=== PATIENT | male | born 1930 | race Caucasian/White ===

== ENCOUNTER 2019-01-17 04:40 | Inpatient (IN) | payer OTHER ==
[2019-01-17 05:23] LABS: Absolute Lymphocytes (CBC) 1.5 K/uL (0.7-4.9); Absolute Monocytes 0.7 K/uL (0.1-1.3); Basophils % 0.8 % (0-1.3); Eosinophils % 3.4 % (0-4.4); Hematocrit 38.7 % (39.6-49.0); Lymphocytes % 12.9 % (15.3-44.8); MPV 11.9 fL (7.6-11.3); Monocytes % 5.9 % (3.3-12.3); RBC Red Blood Cell Count 4.14 M/uL (4.33-5.43)
[2019-01-17 05:26] LABS: Protime INR 0.99
[2019-01-17 05:47] LABS: Albumin 3.8 g/dL (3.4-5.0); Bilirubin Direct 0.2 mg/dL (0-0.2); Bilirubin Total 0.5 mg/dL (0.2-1.0); Magnesium 1.9 mg/dL (1.8-2.4); Potassium 5.2 mmol/L (3.5-5.1); Protein, Total 7.8 g/dL (6.4-8.2); Troponin (Emerg Dept Use Only) 0.48 ng/mL (0.0-0.045)
--- NOTE | 2019-01-17 05:48 | ER ---
Nurse's Notes [facility] Name: Abner Perea Age: 88 yrs Sex: Male : 1930 Arrival Date: 01/17/2019 Time: 04:42 Bed 5 Private MD: Diagnosis: Other chest pain;Acute Coronary syndrome;Hyperglycemia Presentation: 01/17 04:44 Presenting complaint: EMS states: Chest pain with nausea that began at 0000, woke him lp1 out of sleep but waited to see if it would get better; Called EMS after no improvement, on arrival of EMS, chest pain resolved; Per EMS, Patient O2 sat of 90% on RA. Transition of care: patient was not received from another setting of care. Onset of symptoms was January 17, 2019 at 00:00. Risk Assessment: Do you want to hurt yourself or someone else? Patient reports no desire to harm self or others. Initial Sepsis Screen: Does the patient meet any 2 criteria? No. Patient's initial sepsis screen is negative. Does the patient have a suspected source of infection? No. Patient's initial sepsis screen is negative. Care prior to arrival: IV initiated. 22 GA, in the left hand, Oxygen administered. via nasal cannula. 04:44 Method Of Arrival: EMS: [facility] lp1 04:44 Acuity: GEORGE 3 lp1 Historical: - Allergies: 04:51 No Known Allergies; lp1 - Home Meds: 04:51 Levemir 100 unit/mL subcutaneous soln [Active]; Novolog 100 unit/mL Sub-Q soln three lp1 times a day [Active]; bumetanide 2 mg Oral tab 1.5 tab 2 times per day [Active]; Isosorbide 30mg Daily [Active]; levothyroxine 88 mcg tab 1 tab once daily [Active]; levothyroxine 200 mcg tab 1 tab once daily [Active]; aspirin 81 mg Oral TbEC 1 tab once daily [Active]; metoprolol tartrate 50 mg Oral tab once daily [Active]; simvastatin 80 mg Oral tab daily [Active]; tamsulosin 0.4 mg oral cp24 1 cap once daily [Active]; - PMHx: 04:51 Hypertension; Diabetes - IDDM; Hypothyroidism; Myocardial infarction; lp1 - PSHx: 04:51 None; lp1 - Immunization history:: Adult Immunizations up to date. - Social history:: Smoking status: Patient/guardian denies using tobacco. - Ebola Screening: : No symptoms or risks identified at this time. Screenin:52 Abuse screen: Denies threats or abuse. Denies injuries from another. Nutritional lp1 screening: No deficits noted. Tuberculosis screening: No symptoms or risk factors identified. 05:06 Fall Risk No fall in past 12 months (0 pts). No secondary diagnosis (0 pts). IV access ed1 (20 points). Ambulatory Aid- None/Bed Rest/Nurse Assist (0 pts). Gait- Weak (10 pts.). Mental Status- Oriented to own ability (0 pts). Total Stone Fall Scale indicates Low Risk Score (25-44 pts). Fall prevention measures have been instituted. Side Rails Up X 2 Frequent Obs/Assesments occuring Family Present and informed to notify staff if they need to leave bedside As available Patient and Family Educated on Fall Prevention Program and strategies. Assessment: 05:06 General: Appears in no apparent distress. Behavior is calm, cooperative. Pain: Denies ed1 pain. N/A Pain began N/A. Neuro: Level of Consciousness is awake, alert, obeys commands, Oriented to person, place, time, situation. 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 Respiratory: Airway is patent Respiratory effort is even, unlabored, Respiratory pattern is regular, symmetrical, Breath sounds are clear bilaterally. GI: Abdomen is non-distended, Bowel sounds present X 4 quads. : No signs and/or symptoms were reported regarding the genitourinary system. EENT: No signs and/or symptoms were reported regarding the EENT system. Derm: Skin is intact, is fragile, is thin, Skin is dry, Skin is normal, Skin temperature is warm. 05:43 Reassessment: Patient appears in no apparent distress at this time. No changes from ed1 previously documented assessment. Patient and/or family updated on plan of care and expected duration. Pain level reassessed. Patient is alert, oriented x 3, equal unlabored respirations, skin warm/dry/pink. Patient denies pain at this time. 06:47 Reassessment: Patient appears in no apparent distress at this time. Patient and/or ed1 family updated on plan of care and expected duration. Pain level reassessed. Patient is alert, oriented x 3, equal unlabored respirations, skin warm/dry/pink. Patient denies pain at this time. 07:15 General: Appears in no apparent distress. comfortable, Behavior is calm, cooperative, hj appropriate for age. Pain: Denies pain. Neuro: Level of Consciousness is awake, alert, obeys commands, Oriented to person, place, time, situation, Appropriate for age. Cardiovascular: Reports chest pain. Respiratory: Airway is patent Respiratory effort is even, unlabored, Respiratory pattern is regular, symmetrical, Breath sounds are clear. GI: Abdomen is non-distended, Bowel sounds present X 4 quads. : No signs and/or symptoms were reported regarding the genitourinary system. EENT: No signs and/or symptoms were reported regarding the EENT system. Derm: No signs and/or symptoms reported regarding the dermatologic system. Musculoskeletal: No signs and/or symptoms reported regarding the musculoskeletal system. Vital Signs: 04:46 BP 179 / 86; Pulse 95; Resp 19; Temp 97.9(O); Pulse Ox 91% on R/A; Weight 108.86 kg; lp1 Height 6 ft. 0 in. (182.88 cm); Pain 0/10; 04:46 Pulse Ox 94% on 2 lpm NC; lp1 05:43 BP 170 / 70; Pulse 89; Resp 16; Pulse Ox 94% on 2 lpm NC; Pain 0/10; ed1 06:47 BP 158 / 73; Pulse 98; Resp 18; Pulse Ox 98% on 2 lpm NC; Pain 0/10; ed1 07:16 BP 163 / 75; Pulse 98; Resp 18; Temp 98.1(O); Pulse Ox 96% on R/A; hj 04:46 Body Mass Index 32.55 (108.86 kg, 182.88 cm) lp1 ED Course: 04:42 Patient arrived in ED. aa1 04:43 Ryan Lucas MD is Attending Physician. kdr 04:46 Triage completed. lp1 04:46 Arm band placed on right wrist. lp1 04:52 Patient has correct armband on for positive identification. Placed in gown. Bed in low lp1 position. Call light in reach. avionics systems integration specialist on. Pulse ox on. NIBP on. 04:52 Oxygen administration via nasal cannula \T\ 2L/min. lp1 04:57 XRAY Chest (1 view) In Process Unspecified. EDMS 05:06 Brittny Sow, RN is Primary Nurse. ed1 05:06 Maintain EMS IV. Dressing intact. Site clean \T\ dry. Gauge \T\ site: 22g left hand. ed 1 05:43 Notified ED physician of a critical lab result(s). Glucose 605. ed1 05:45 Nica Puga MD is Hospitalizing Provider. kdr 06:46 No provider procedures requiring assistance completed. Patient admitted, IV remains in ed1 place. intact, No redness/swelling at site. 07:00 Primary Nurse role handed off by Brittny Sow, IFTIKHAR ed1 07:00 Repeat lab(s) drawn. by or, sent to lab. lp1 07:01 Alex Carr, IFTIKHAR is Primary Nurse. 07:02 Glucose Sent. Administered Medications: 05:49 Drug: Insulin Regular Human 6 units {Co-Signature: aa1 (Samina Sepulveda RN).} Route: IVP; ed1 Site: left hand; 06:54 Follow up: Response: Blood sugar is unchanged ed1 06:56 Drug: Insulin Regular Human 10 units {Co-Signature: lp1 (Ange Small RN).} Route: IVP; Site: left hand; 07:19 Follow up: Response: No adverse reaction Point of Care Testing: Blood Glucose: 05:09 Blood Glucose: High (>450 mg/dL); lp1 06:53 Blood Glucose: High (>450 mg/dL); ed1 05:09 Glucometer read >500; lab Glucose ordered lp1 06:53 Glucometer read >500; lab glucose ordered ed1 Ranges: Outcome: 05:46 Decision to Hospitalize by Provider. kdr 07:54 Admitted to Med/surg accompanied by tech, via wheelchair, room 221, with oxygen, with chart, Report called to IFTIKHAR Kumar 07:54 Condition: stable 07:54 Instructed on the need for admit, Demonstrated understanding of instructions. 07:56 Patient left the ED. hj Signatures: Dispatcher [employer] EDKY Samina Sepulveda RN RN aa1 Ryan Lucas MD MD [facility] Brittny Sow RN RN ed1 Ange Small RN RN [facility] Alex Carr RN RN Samina Sepulveda RN aa1 Ange Small RN lp1 Corrections: (The following items were deleted from the chart) 04:52 04:44 Care prior to arrival: None. lp1 lp1
--- NOTE | 2019-01-17 05:49 | EDPHYS ---
Physician Documentation [facility] Name: Abner Perea Age: 88 yrs Sex: Male : 1930 Arrival Date: 01/17/2019 Time: 04:42 Bed 5 Private MD: ED Physician Ryan Lucas HPI: 01/17 05:38 This 88 yrs old Male presents to ER via EMS with complaints of Chest Pain > kdr 31 y/o. 05:38 The patient or guardian reports chest pain that is located primarily in the substernal kdr area, anterior chest wall, bilaterally. Onset: suddenly, Awoke from sleep at midnight with chest discomfort 5/10. Some nausea but no SOB or diaphoresis. Pain persisted until EMS arrived and brought him here. He has no other c/o at this time and is totally pain free.. The pain does not radiate. Associated signs and symptoms: Pertinent positives: nausea, Pertinent negatives: abdominal pain, cough, diaphoresis, dizziness, headache, lower extremity pain, lower extremity swelling, lightheadedness, near syncope, palpitations, recent travel, shortness of breath, syncope, vomiting. The chest pain is described as aching, dull. Duration: The patient or guardian reports a single episode, that is now resolved. Modifying factors: The symptoms are alleviated by nothing. the symptoms are aggravated by nothing. Severity of pain: At its worst the pain was mild a 5 / 10. The patient has experienced similar episodes in the past, a few times. The patient has been recently seen by a physician: Had a recent stay in ICU with an OH out of town. Was in the hospital for over a week. That has hanna in the last month.. Historical: - Allergies: 04:51 No Known Allergies; lp1 - Home Meds: 04:51 Levemir 100 unit/mL subcutaneous soln [Active]; Novolog 100 unit/mL Sub-Q soln three lp1 times a day [Active]; bumetanide 2 mg Oral tab 1.5 tab 2 times per day [Active]; Isosorbide 30mg Daily [Active]; levothyroxine 88 mcg tab 1 tab once daily [Active]; levothyroxine 200 mcg tab 1 tab once daily [Active]; aspirin 81 mg Oral TbEC 1 tab once daily [Active]; metoprolol tartrate 50 mg Oral tab once daily [Active]; simvastatin 80 mg Oral tab daily [Active]; tamsulosin 0.4 mg oral cp24 1 cap once daily [Active]; - PMHx: 04:51 Hypertension; Diabetes - IDDM; Hypothyroidism; Myocardial infarction; lp1 - PSHx: 04:51 None; lp1 - Immunization history:: Adult Immunizations up to date. - Social history:: Smoking status: Patient/guardian denies using tobacco. - Ebola Screening: : No symptoms or risks identified at this time. ROS: 05:38 Constitutional: Negative for fever, chills, and weight loss, Eyes: Negative for injury, kdr pain, redness, and discharge, ENT: Negative for injury, pain, and discharge, Neck: Negative for injury, pain, and swelling, Respiratory: Negative for shortness of breath, cough, wheezing, and pleuritic chest pain, Abdomen/GI: Negative for abdominal pain, nausea, vomiting, diarrhea, and constipation, Back: Negative for injury and pain, : Negative for injury, bleeding, discharge, and swelling, MS/Extremity: Negative for injury and deformity, Skin: Negative for injury, rash, and discoloration, Neuro: Negative for headache, weakness, numbness, tingling, and seizure activity. 05:38 Cardiovascular: Positive for chest pain, Negative for edema, orthopnea, palpitations, paroxysmal nocturnal dyspnea, acute changes. Exam: 05:38 Constitutional: This is a well developed, well nourished patient who is awake, alert, kdr and in no acute distress. Head/Face: Normocephalic, atraumatic. Eyes: Pupils equal round and reactive to light, extra-ocular motions intact. Lids and lashes normal. Conjunctiva and sclera are non-icteric and not injected. Cornea within normal limits. Periorbital areas with no swelling, redness, or edema. Neck: Trachea midline, no thyromegaly or masses palpated, and no cervical lymphadenopathy. Supple, full range of motion without nuchal rigidity, or vertebral point tenderness. No Meningismus. Chest/axilla: Normal chest wall appearance and motion. Nontender with no deformity. No lesions are appreciated. Cardiovascular: Regular rate and rhythm with a normal S1 and S2. No gallops, murmurs, or rubs. Normal PMI, no JVD. No pulse deficits. Respiratory: Lungs have equal breath sounds bilaterally, clear to auscultation and percussion. No rales, rhonchi or wheezes noted. No increased work of breathing, no retractions or nasal flaring. Abdomen/GI: Soft, non-tender, with normal bowel sounds. No distension or tympany. No guarding or rebound. No evidence of tenderness throughout. Back: No spinal tenderness. No costovertebral tenderness. Full range of motion. Skin: Warm, dry with normal turgor. Normal color with no rashes, no lesions, and no evidence of cellulitis. MS/ Extremity: Pulses equal, no cyanosis. Neurovascular intact. Full, normal range of motion. Neuro: Awake and alert, GCS 15, oriented to person, place, time, and situation. Cranial nerves II-XII grossly intact. Motor strength 5/5 in all extremities. Sensory grossly intact. Cerebellar exam normal. Normal gait. Psych: Awake, alert, with orientation to person, place and time. Behavior, mood, and affect are within normal limits. Vital Signs: 04:46 BP 179 / 86; Pulse 95; Resp 19; Temp 97.9(O); Pulse Ox 91% on R/A; Weight 108.86 kg; lp1 Height 6 ft. 0 in. (182.88 cm); Pain 0/10; 04:46 Pulse Ox 94% on 2 lpm NC; lp1 05:43 BP 170 / 70; Pulse 89; Resp 16; Pulse Ox 94% on 2 lpm NC; Pain 0/10; ed1 06:47 BP 158 / 73; Pulse 98; Resp 18; Pulse Ox 98% on 2 lpm NC; Pain 0/10; ed1 07:16 BP 163 / 75; Pulse 98; Resp 18; Temp 98.1(O); Pulse Ox 96% on R/A; hj 04:46 Body Mass Index 32.55 (108.86 kg, 182.88 cm) lp1 MDM: 05:38 Data reviewed: vital signs, nurses notes, lab test result(s), EKG, radiologic studies. kdr Counseling: I had a detailed discussion with the patient and/or guardian regarding: the historical points, exam findings, and any diagnostic results supporting the discharge/admit diagnosis, lab results, radiology results. 05:46 Patient medically screened. kdr 01/17 04:43 Order name: Basic Metabolic Panel; Complete Time: 06:14 kdr 01/17 04:43 Order name: CBC with Diff; Complete Time: 05:48 kdr 01/17 04:43 Order name: LFT's; Complete Time: 06:14 kdr 01/17 04:43 Order name: Magnesium; Complete Time: 06:14 kdr 01/17 04:43 Order name: NT PRO-BNP; Complete Time: 06:14 [facility] 01/17 04:43 Order name: PT-INR; Complete Time: 06:14 [facility] 01/17 04:43 Order name: Troponin (emerg Dept Use Only); Complete Time: 06:14 kdr 01/17 04:43 Order name: XRAY Chest (1 view) kdr 01/17 05:10 Order name: Glucose; Complete Time: 05:48 ed1 01/17 06:53 Order name: Glucose ed1 01/17 07:35 Order name: Glucose Level EDDE 01/17 04:43 Order name: EKG; Complete Time: 04:44 [facility] 01/17 04:43 Order name: Cardiac monitoring; Complete Time: 05:11 [facility] 01/17 04:43 Order name: EKG - Nurse/Tech; Complete Time: 05:11 kdr 01/17 04:43 Order name: IV Saline Lock; Complete Time: 05:11 [facility] 01/17 04:43 Order name: Labs collected and sent; Complete Time: 05:11 [facility] 01/17 04:43 Order name: O2 Per Protocol; Complete Time: 05:10 [facility] 01/17 04:43 Order name: O2 Sat Monitoring; Complete Time: 05:11 [facility] 01/17 06:23 Order name: CONS Physician Consult EDDE 01/17 06:23 Order name: EKG Electrocardiogram EDDE 01/17 06:23 Order name: EKG Electrocardiogram EDDE Administered Medications: 05:49 Drug: Insulin Regular Human 6 units {Co-Signature: aa1 (Samina Sepulveda RN).} Route: IVP; ed1 Site: left hand; 06:54 Follow up: Response: Blood sugar is unchanged ed1 06:56 Drug: Insulin Regular Human 10 units {Co-Signature: lp1 (Ange Small RN).} Route: IVP; Site: left hand; 07:19 Follow up: Response: No adverse reaction Point of Care Testing: Blood Glucose: 05:09 Blood Glucose: High (>450 mg/dL); lp1 06:53 Blood Glucose: High (>450 mg/dL); ed1 05:09 Glucometer read >500; lab Glucose ordered lp1 06:53 Glucometer read >500; lab glucose ordered ed1 Ranges: Critical Glucose Levels:Adult <50 mg/dl or >400 mg/dl <40 mg/dl or >180 mg/dl Disposition: 01/17/19 05:46 Hospitalization ordered by Nica Puga for Inpatient Admission. Preliminary diagnosis are Other chest pain, Acute Coronary syndrome, Hyperglycemia. - Bed requested for Telemetry/MedSurg (observation). - Status is Inpatient Admission. hj - Condition is Stable. - Problem is an acute exacerbation. - Symptoms are resolved. UTI on Admission? No Signatures: Dispatcher [employer] EDDE Batool Warner RN RN Ryan Lucas MD MD [facility] Brittny Sow RN RN ed1 Ange Small RN RN lp1 Alex Carr RN RN Samina Sepulveda RN aa1 Ange Small RN lp1 Corrections: (The following items were deleted from the chart) 06:26 06:23 Troponin I ordered. EDDE EDMS 06:26 06:23 Troponin I ordered. [facility] EDMS 06:32 05:46 Hospitalization Ordered by A Vivien GARCIA for Inpatient Admission. Preliminary mw diagnosis is Other chest pain; Acute Coronary syndrome; Hyperglycemia. Bed requested for Telemetry/MedSurg (observation). Status is Inpatient Admission. Condition is Stable. Problem is an acute exacerbation. Symptoms are resolved. UTI on Admission? No. kdr 07:56 06:32 01/17/2019 05:46 Hospitalization Ordered by A Vivien GRACIA for Inpatient Admission. hj Preliminary diagnosis is Other chest pain; Acute Coronary syndrome; Hyperglycemia. Bed requested for Telemetry/MedSurg (observation). Status is Inpatient Admission. Condition is Stable. Problem is an acute exacerbation. Symptoms are resolved. UTI on Admission? No. mw
[2019-01-17] MEDS ORDERED: INSULIN -REGULAR HUMAN 50 UNIT/0.5 ML ML ONE ×2 (05:58→07:13)
[2019-01-17] MEDS ORDERED: ACETAMINOPHEN 500 MG TAB PO PRN (06:19)
[2019-01-17] MEDS ORDERED: D50W 25 GM/50 ML SYRINGE IV PRN ×3 (06:50→15:37)
[2019-01-17] MEDS ORDERED: GLUCAGON 1 MG/VIAL IM PRN ×3 (06:50→15:37)
[2019-01-17] MEDS ORDERED: INSULIN -REGULAR HUMAN 50 UNIT/0.5 ML ML SQ SCH (07:30)
--- NOTE | 2019-01-17 07:40 | EKG ---
Test Date: 2019-01-17 Test Time: 04:43:09 Customer Sales Advisor: ISIDRO MEASUREMENT RESULTS: Intervals: Rate: 92 RI: 278 QRSD: 106 QT: 352 QTc: 435 Tofte: P: 45 RI: 278 QRS: 53 T: -55 INTERPRETIVE STATEMENTS: Sinus rhythm with 1st degree AV block Possible Anterior infarct, age undetermined Abnormal ECG Compared to ECG 03/10/2017 16:57:59 Myocardial infarct finding now present Ventricular premature complex(es) no longer present Electronically Signed On 01-17-19 07:38:53 [employer] by Christophe Mcfadden
[2019-01-17] MEDS ORDERED: ASPIRIN EC 81 MG TAB PO SCH (09:00)
[2019-01-17 09:12] VITALS: BMI 33.5
--- NOTE | 2019-01-17 09:47 | RAD REPORT ---
EXAM DESCRIPTION: Travis Single View01/17/2019 4:58 am CLINICAL HISTORY: Chest pain COMPARISON: 2017 FINDINGS: Mild bilateral interstitial lung opacities are present. Lungs are hyperaerated. Heart is normal size IMPRESSION: Mild bilateral interstitial lung opacities may represent mild interstitial pulmonary klarissa ma or pneumonitis superimposed over chronic changes
[2019-01-17] MEDS: INSULIN -REGULAR HUMAN 50 UNIT/0.5 ML ML SQ SCH ×4 (10:31→21:29)
[2019-01-17 12:46] LABS: Troponin I 4.99 ng/mL (0.0-0.045)
--- NOTE | 2019-01-17 13:50 | CON ---
Date of Consultation: 01/17/2019 Reason For Consultation: Chest pain. History Of Present Illness: Mr. Perea is an 88-year-old white male. He is very well known to me from previous office visits and admissions. He basically was visiting with some friends last night and a te a lot according to him and went to sleep about midnight, woke up early this morning with midepigas tric substernal chest pain with some nausea. No diaphoresis or shortness of breath. Denied any radi ation of the pain to his jaw or arms. Denied any shortness of breath, PND, orthopnea, pedal edema, p alpitation, or syncope. His symptoms lasted approximately 2 hours. By the time I saw him, he was pa in free. Past Medical History: Include hypertension, diabetes, coronary artery disease status post recent DC in [facility] with a catheterization that was done, but no intervention. He has a history of modera te cerebrovascular disease, dyslipidemia, chronic renal disease, benign prostatic hypertrophy. He al so has a history of hypertension. Allergies: NONE. Review of Systems: Negative. Social History: Negative for tobacco or alcohol. Family History: Negative. Medications: At home include aspirin, insulin, levothyroxine, Procardia, ramipril, Zocor, Flomax, bu metanide, Imdur, metoprolol 50 daily, and valsartan-hydrochlorothiazide combination. Physical Examination: Vital Signs: Stable. He was afebrile. He was pleasant. He was in sinus rhythm. His blood pressur e was slightly elevated at 179/86 when he came in and was 150/80 when I saw him. HEENT: Negative. Neck: Supple without any bruit, lymphadenopathy, JVD, or thyromegaly. Chest: Clear to auscultation and percussion. Cardiac: Regular rhythm and rate with an S4, gallops. No murmurs or rubs. Abdomen: Benign. Extremities: No clubbing, cyanosis, or edema. Skin: Dry and intact. Vascular: Decreased dorsalis pedis and posterior tibial bilaterally. Neurological: He was nonfocal. Diagnostic Data: Creatinine was 3.26. White count was 11.7000. Glucose was 605. Troponin is 0.48. BNP is 2469. Impression And Plan: 1.Non-ST elevation myocardial infarction. 2.Diabetes with very poor control with a glucose of 605. 3.Elevated BNP secondary to renal failure. 4.Chronic renal insufficiency stage IV. 5.History of coronary artery disease, had a catheterization in [facility] recently. I am assuming it found distal disease similar to what we found in March 2017. No intervention. 6.His other problems include hypertension that is poorly controlled, cerebrovascular disease that is moderate, and benign prostatic hypertrophy. At this point, I would certainly control his sugar firs t, increase his beta-clotilde to 50 b.i.d., consider adding Norvasc for his blood pressure. I am slig htly confused on what medication he takes at home. He did not have his medications with him, but if he is on valsartan, hydrochlorothiazide, or ramipril, all these need to be held. I would like to get another echocardiogram for the morning. Consider renal consultation. I do not plan to repeat heart catheterization at this point. I will discuss the case further with Dr. Puga. MARINA/AGUILA Voice ID: [id number] Report ID: [id number]
[2019-01-17] MEDS ORDERED: INSULIN -REGULAR HUMAN 50 UNIT/0.5 ML ML IV STA ×2 (14:07→17:36)
[2019-01-17] MEDS ORDERED: ASPIRIN EC 81 MG TAB PO ONE (14:44)
[2019-01-17] MEDS ORDERED: METOPROLOL XL 50 MG TAB PO ONE (14:44)
[2019-01-17] MEDS: ISOSORBIDE MONO SR 60 MG TAB PO SCH (15:45)
[2019-01-17] MEDS ORDERED: ENOXAPARIN 40 MG/0.4 ML SQ SCH (17:00)
[2019-01-17] MEDS ORDERED: ENOXAPARIN 30 MG/0.3 ML SQ SCH (17:00)
[2019-01-17] MEDS ORDERED: INSULIN GLARGINE 100 UNITS/ML SQ SCH (21:00)
[2019-01-17] MEDS: BUMETANIDE 1 MG TABLET PO SCH (21:24)
[2019-01-17] MEDS: ATORVASTATIN 40 MG TAB PO SCH (21:24)
[2019-01-17] MEDS: GABAPENTIN 100 MG CAP PO SCH (21:30)
[2019-01-17] MEDS: METOPROLOL XL 50 MG TAB PO SCH (21:31)
--- NOTE | 2019-01-17 22:08 | HP ---
Date of Admission: 01/17/2019 Chief Complaint: Chest pain. History Of Present Illness: This is an 88-year-old male patient who went to [place] with his about a month ago; and at that time, he forgot to take all his medications with him, and he ended up in the hospital and stayed there for several days. He was taken to the hospital with hypertensive crisis. There was an echocardiogram done, which showed normal ejection fraction. He did not have a cardiac catheterization; and once his condition was stable, he was discharged to go home. He came to see me for followup about 7 to 10 days ago; and after that, he was advised to follow up with medical support specialist, and he has appointment coming up to see medical support specialist. When I saw him last time, I did talk to him about visiting horticulture superintendent for consideration of insulin pump because of his labile diabetes problem. I have known him for almost 25 years, and he always had significant fluctuation in his blood sugar problem; and lately , it might be getting worse. So, we did talk about that. He was not ready to see any horticulture superintendent for such consideration and was going to think about it. Yesterday, he ate around 4 o'clock or so in the afternoon, and his blood sugar before eating was around 140. He did not check his blood sugar at bedtime , went to sleep around 10 o'clock, and woke up around midnight with nausea type of feeling. So, he got up, went to the kitchen, and had about 4 to 5 ounces of milk. It did not settle down his stomach, continued to have nausea, and he had another 4 to 5 ounces of milk. He started having some chest pain around that time, describing as heaviness and pressure type of feeling in the chest. Did not radiate to his neck, jaw, or arms, but said his elbows were hurting a little bit at that time. He was getting shortness of breath. This pain did not get better. So, this morning, he came to emergency room. His blood sugar was elevated, higher than 600, when he came in to the ER. Potassium was slightly elevated at 5.2, and troponin was slightly abnormal. He was admitted to the hospital. When I saw him this morning, he was asymptomatic. His daughter arrived soon after I saw him, and I did talk to her about the details as well. I have also discussed details with medical support specialist, Dr. Mcfadden, who has seen him this morning as well. Allergies: NO KNOWN ALLERGIES, BUT HAD SIDE EFFECT WITH AMLODIPINE CAUSING ITCHING. Medications: List reviewed. Review of Systems: Cardiovascular: As mentioned above. All other systems reviewed and negative. Past Medical History: Significant for hypertension, osteoarthritis at multiple sites, chronic kidney disease stage 4, hyperlipidemia, diabetes mellitus type 2 , diverticulosis, leg edema, hypothyroidism, benign prostatic hypertrophy, coronary artery disease. Past Surgical History: Cataract surgery and tonsillectomy. Family History: Hypertension, stroke, and gastric cancer. Social History: Negative for smoking and alcohol use. Physical Examination: Vital Signs: Temperature 98.1, pulse 98, respiratory rate 18, blood pressure 163/75, oxygen saturation 96%, height 6 feet, and weight 240 pounds. General: Awake, alert, oriented, not in distress. HEENT: Head atraumatic, normocephalic. Conjunctivae nonerythematous. Sclerae white. Mouth, no thrush or edema noted. Ears/Nose, no mass, lesion, discharge noted. Neck: Supple. No JVD, lymph nodes, bruit, thyromegaly noted. Lungs: Minimum basal rales noted, more so in right lung than the left lung. Otherwise, the patient is not using any accessory muscles of respiration. Heart: Normal heart sounds, no murmur or gallop. Abdomen: Soft, bowel sounds normal. No guarding, rigidity, tenderness, mass, hepatosplenomegaly, distention, or bruit noted. Extremities: Bilateral trace leg edema. Skin: No rash, ulcer, cellulitis. Lymphatics: No lymph node enlargement in neck, supraclavicular, infraclavicular region. Neuro: No focal neurological deficit. Chest: Unremarkable. External Genitalia: Deferred. Rectal: Deferred. Laboratory Data: White count 11.7, hemoglobin 12.3, and platelets 172. Sodium 135, potassium 5.2, chloride 98, bicarb 25, BUN 64, creatinine 3.26, and glucose 677. Liver function tests unremarkable. Troponin 0.48. ProBNP 2460 now. Impression: 1. Acute coronary syndrome. 2. Coronary artery disease. 3. Type 2 diabetes mellitus, uncontrolled. 4. Chronic kidney disease stage 4. 5. Hyperkalemia. 6. Anemia, chronic. 7. Hypertension. 8. Hyperlipidemia. 9. Hypothyroidism. 10. Diverticulosis. 11. Benign prostatic hypertrophy. Plan: We will go ahead and admit him to the hospital for further evaluation and management of this problem. The patient is appropriate for inpatient and is expected to spend 2 midnights in hospital. The patient had his last cardiac catheterization at our hospital in 2017; results reviewed. Medical management was suggested at that time, and I did talk to Dr. Mcfadden today, and he has suggested to make adjustment on medication and continue medical management. His extremely high blood sugar was likely due to drinking milk middle of the night and then coming to the hospital with this chest pain complaint. Once again, I did talk to him about visiting with horticulture superintendent for consideration of insulin pump and more continuous glucose monitoring device to help manage diabetes better, and he has still not decided to do so, but informs me that he will think about it, and I did communicate with the patient's daughter regarding that as well. We will continue home medications per order. DVT prophylaxis will be given per order. I will see him tomorrow for followup, and we will get serial cardiac enzymes on him. His echocardiogram from last month done in [place], results reviewed, had revealed normal ejection fraction and left ventricular hypertrophy. As far as chronic kidney disease is concerned , the patient sees a refining machine operator regularly; and when I talked to the patient's daughter, she informed me that if and when time comes for consideration of dialysis, there is a good possibility that the patient may not want to consider dialysis and may consider to go on hospice care at that time. We will continue to manage his multiple comorbidities as best as we can; and obviously, if he undergoes cardiac catheterization, there is a high risk of him going into permanent renal failure, requiring hemodialysis. So, we definitely would like to avoid that if at all possible. AUNG/MODL Voice ID: [id number] LINDA
[2019-01-18] MEDS: LEVOTHYROXINE SOD 0.088 MG TAB PO SCH (05:50)
[2019-01-18] MEDS: LEVOTHYROXINE SOD 0.1 MG TAB PO SCH (05:50)
[2019-01-18 06:53] LABS: Absolute Neutrophil 4.6 K/uL (1.8-8.0); Basophils % 0.9 % (0-1.3); Eosinophils % 5.5 % (0-4.4); Hematocrit 32.4 % (39.6-49.0); Lymphocytes % 24.6 % (15.3-44.8); MPV 11.2 fL (7.6-11.3); Monocytes % 12.1 % (3.3-12.3); RBC Red Blood Cell Count 3.57 M/uL (4.33-5.43)
[2019-01-18 07:11] LABS: Potassium 3.5 mmol/L (3.5-5.1); Thyroid Stimulating Hormone 0.231 uIU/mL (0.360-3.740)
[2019-01-18] MEDS: INSULIN -REGULAR HUMAN 50 UNIT/0.5 ML ML SQ SCH ×4 (07:30→21:39)
[2019-01-18] MEDS ORDERED: INSULIN GLARGINE 100 UNITS/ML SQ SCH ×2 (08:00→21:00)
[2019-01-18] MEDS: ASPIRIN EC 81 MG TAB PO SCH (08:33)
[2019-01-18] MEDS: TAMSULOSIN 0.4 MG SR CAP PO SCH (08:33)
[2019-01-18] MEDS: BUMETANIDE 1 MG TABLET PO SCH ×2 (08:34→21:36)
[2019-01-18] MEDS: METOLAZONE 2.5 MG TABLET PO SCH (08:35)
[2019-01-18] MEDS: GABAPENTIN 100 MG CAP PO SCH ×3 (08:35→21:36)
[2019-01-18] MEDS: METOPROLOL XL 50 MG TAB PO SCH ×2 (08:35→21:36)
[2019-01-18] MEDS: ISOSORBIDE MONO SR 60 MG TAB PO SCH (08:35)
--- NOTE | 2019-01-18 12:05 | ECHO ---
HEIGHT: 5 ft 11 in WEIGHT: 240 lb 0 oz DATE OF STUDY: 01/18/[address]: Torres Puga MD 2-DIMENSIONAL: YES M.MODE: YES DOPPLER: YES COLOR FLOW: YES TDS: PORTABLE: DEFINITY: BUBBLE STUDY: DIAGNOSIS: CORNARY ARTERY DISEASE CARDIAC HISTORY: CATHERIZATION: NO SURGERY: NO PROSTHETIC VALVE: NO PACEMAKER: NO MEASUREMENTS (cm) DIASTOLIC (NORMALS) SYSTOLIC (NORMALS) IVSd 1.0 (0.6-1.2) LA Diam 4.3 (1.9-4.0) LVEF 74% LVIDd 5.4 (3.5-5.7) LVIDs 3.1 (2.0-3.5) %FS 43% LVPWd 1.2 (0.6-1.2) Ao Diam 2.3 (2.0-3.7) 2 DIMENSIONAL ASSESSMENT: RIGHT ATRIUM: NORMAL LEFT ATRIUM: DILATED RIGHT VENTRICLE: NORMAL LEFT VENTRICLE: NORMAL TRICUSPID VALVE: NORMAL MITRAL VALVE: NORMAL PULMONIC VALVE: NORMAL AORTIC VALVE: SCLEROSIS PERICARDIAL EFFUSION: NONE AORTIC ROOT: NORMAL LEFT VENTRICULAR WALL MOTION: NORMAL DOPPLER/COLOR FLOW: MILD MITRAL AND TRICUSPID REGURGITATION. MILD PULMONARY HYPERTENSION. ESTIMATED RIGHT VENTRICULAR SYSTOLIC PRESSURE 39 mmHg. NO AORTIC STENOSIS OR AORTIC REGURGITATION. COMMENTS: NORMAL LEFT VENTRICULAR EJECTION FRACTION. DILATED LEFT ATRIUM. AORTIC SCLEROSIS WITH NO AORTIC STENOSIS OR AORTIC REGURGITATION. MILD OLIMPIA AND TRICUSPID REGURGITATION. MILD PULMONARY HYPERTENSION. TECHNOLOGIST: MJ PULIDO
[2019-01-18] MEDS ORDERED: ENOXAPARIN 40 MG/0.4 ML SQ SCH (17:00)
[2019-01-18] MEDS ORDERED: INSULIN -REGULAR HUMAN 50 UNIT/0.5 ML ML IV ONE (17:00)
--- NOTE | 2019-01-18 17:24 | EKG ---
Test Date: 2019-01-18 Test Time: 11:11:19 College And Career Counselor: MEGAN MEASUREMENT RESULTS: Intervals: Rate: 58 MT: 236 QRSD: 92 QT: 446 QTc: 437 [place]: P: 55 MT: 236 QRS: 66 T: 107 INTERPRETIVE STATEMENTS: Sinus bradycardia with 1st degree AV block with premature atrial complexes Cannot rule out Anterior infarct, age undetermined Abnormal ECG Compared to ECG 01/17/2019 04:43:09 Atrial premature complex(es) now present Sinus rhythm no longer present Myocardial infarct finding still present Electronically Signed On 01-18-19 17:23:37 MOLDER PIPE COVERING by Franklin Diallo
[2019-01-18] MEDS: ATORVASTATIN 40 MG TAB PO SCH (21:36)
--- NOTE | 2019-01-19 00:56 | PN ---
Date of Progress Note: 01/18/2019 Subjective: The patient was seen this morning for followup. He was sitting in chair. Denied any co mplaints. No chest pain or shortness of breath. No nausea or vomiting. His blood sugar this mornin g was 443 by glucometer and 51 with the lab results and he was asymptomatic. Coos juice was given x2 glasses this morning and then he started eating breakfast. Objective: HEENT: Unremarkable. Lungs: Clear to auscultation. Heart: Sounds normal. Abdomen: Soft. Bowel sounds normal. No guarding, rigidity, tenderness, distention. Extremities: No leg edema. Laboratory Data: Sodium 138, potassium 3.5, chloride 103, bicarb 28, BUN 63, creatinine 2.80, glucos e 51. Lipid profile reviewed. Impression: 1.Acute coronary syndrome. 2.Diabetes mellitus. 3.Hypertension. 4.Coronary artery disease. 5.Chronic kidney disease, stage 4. Plan: We will go ahead and discontinue this morning dose of Lantus. Continue night-time dose of Bob tus, but reduce dose from 30 units to 15 units. Continue sliding scale insulin. This afternoon, his blood sugar had gone up to more than 500 before supper time, so along with sliding scale 5 units of regular insulin IV was ordered. Once again, I talked to the patient this morning about seeing endocr inologist for diabetes management for consideration of insulin pump and he is willing to do so. Upon discharge, we will go ahead and try to help schedule appointment for him. Echo will be done today. We will follow up on this. AUNG/MODL Voice ID: [id number] Report ID: [id number]
[2019-01-19] MEDS: LEVOTHYROXINE SOD 0.088 MG TAB PO SCH (05:43)
[2019-01-19] MEDS: LEVOTHYROXINE SOD 0.1 MG TAB PO SCH (05:44)
[2019-01-19 06:13] LABS: Absolute Lymphocytes (CBC) 1.1 K/uL (0.7-4.9); Absolute Monocytes 0.9 K/uL (0.1-1.3); Absolute Neutrophil 7.1 K/uL (1.8-8.0); Basophils % 0.6 % (0-1.3); Eosinophils % 2.1 % (0-4.4); Hematocrit 35.2 % (39.6-49.0); Lymphocytes % 12.1 % (15.3-44.8); MPV 11.5 fL (7.6-11.3); Monocytes % 9.6 % (3.3-12.3); RBC Red Blood Cell Count 3.91 M/uL (4.33-5.43)
[2019-01-19] MEDS: INSULIN -REGULAR HUMAN 50 UNIT/0.5 ML ML SQ SCH (07:30)
[2019-01-19] MEDS ORDERED: INSULIN GLARGINE 100 UNITS/ML SQ ONE (08:10)
[2019-01-19] MEDS: ASPIRIN EC 81 MG TAB PO SCH (08:56)
[2019-01-19] MEDS: BUMETANIDE 1 MG TABLET PO SCH (08:56)
[2019-01-19] MEDS: METOPROLOL XL 50 MG TAB PO SCH (09:03)
[2019-01-19] MEDS: TAMSULOSIN 0.4 MG SR CAP PO SCH (09:03)
[2019-01-19] MEDS: GABAPENTIN 100 MG CAP PO SCH (09:04)
[2019-01-19] MEDS: METOLAZONE 2.5 MG TABLET PO SCH (09:04)
[2019-01-19] MEDS: ISOSORBIDE MONO SR 60 MG TAB PO SCH (09:06)
[2019-01-19 09:11] VITALS: BP 189/84
[2019-01-19 09:21] VITALS: TEMP 97.8
[2019-01-19 12:56] VITALS: O2SAT 97
--- NOTE | 2019-01-19 14:01 | PN ---
Date of Progress Note: 01/18/2019 Mr. Perea was admitted on 01/17/2019 with subendocardial LA. Troponin peaked at approximately 6. Had some chest pain when he came in, but his chest pain has resolved. His other issues include severe h yperglycemia with very poor diabetes control, severe renal insufficiency stage IV. The patient is no t a candidate for heart catheterization because of his renal failure. We will continue to treatment with metoprolol, low-dose Lovenox because of his renal dysfunction, aspirin, isosorbide, that we shou ld probably increase. We will continue medical therapy, do a catheterization only in an emergency si tuation that Mr. Perea agrees to with. I will be available for questions if the need arises. MARINA/AGUILA Voice ID: [id number] Report ID: [id number]
--- NOTE | 2019-01-19 19:05 | EKG ---
Test Date: 2019-01-19 Test Time: 10:06:35 Yarn Comber: MEGAN MEASUREMENT RESULTS: Intervals: Rate: 71 MT: 250 QRSD: 98 QT: 404 QTc: 439 [place]: P: 83 MT: 250 QRS: 61 T: -57 INTERPRETIVE STATEMENTS: Sinus rhythm with 1st degree AV block Possible Inferior infarct, age undetermined Cannot rule out Anterior infarct, age undetermined Abnormal ECG Compared to ECG 01/18/2019 11:11:19 Sinus bradycardia no longer present Atrial premature complex(es) no longer present Myocardial infarct finding still present Electronically Signed On 01-19-19 19:03:02 KINESIOLOGIST by Christophe Mcfadden
--- NOTE | 2019-01-20 06:41 | DS ---
Date of Discharge: 01/19/2019 Physical Examination: HEENT: Unremarkable. Lungs: Clear to auscultation. Heart: Sounds normal. Abdomen: Soft, bowel sounds normal. No guarding, rigidity, tenderness, or distention. Extremities: Very trace leg edema. Laboratory Data: Last CBC today, white count 9.3, hemoglobin 11.6, platelets 166. His chemistry fro m yesterday, BUN 63, creatinine 2.8, TSH 0.23, and LDL 54. Discharge Medications And Instructions: Continue prior home medication except following changes. 1.Levemir insulin patient to take 20 units in the morning and 15 units in the evening. 2.Increase Toprol-XL 50 mg 1 tablet by mouth 2 times a day. 3.Stop isosorbide 30 mg dose and start 60 mg p.o. daily. Follow up at my office in 2 weeks and follow up with Dr. Mcfadden in 2-3 weeks. Hospital Course: An 88-year-old male patient admitted to the hospital with complaints of chest pain. Please see dictated H and P for more information. After patient was evaluated in the ER, he was ad mitted to the hospital. His initial troponin was 0.48, second troponin was 4, third troponin was 6. The patient has not had any recurrence of chest pain after his admission to the hospital. Dr. Dariela river from Cardiology was consulted. The patient was given Lovenox 40 mg subcutaneous injection daily. He has chronic kidney disease stage 4. His home medications were continued. Medical management was suggested by Dr. Mcfadden and we talked about medication adjustment, and per my discussion with him, we increased the dose of isosorbide mononitrate and metoprolol. The patient tolerated this very well . He remained asymptomatic. No more chest pain. No shortness of breath. Echocardiogram was done, which showed normal ejection fraction. No evidence of any wall motion abnormality. Dr. Mcfadden dima mmended conservative medical management and the patient is medically stable for discharge. He has si gnificantly labile diabetes problem. His blood sugar yesterday morning was in range of 40-50 and oth er times his blood sugar was more than 500. At home, he was taking 20 units of Levemir in the mornin g and 30 units in the evening. I have advised him to reduce the evening dose from 30 to 15 units and that is what we gave him last night. This morning, sugar was 134. I have not recommended him to vi rust field reviewer for evaluation of insulin pump therapy and he is willing to do, so we will refer him to field reviewer on outpatient basis. Final Diagnoses: 1.Acute coronary syndrome. 2.Coronary artery disease. 3.Diabetes mellitus, type 2, uncontrolled. 4.Chronic kidney disease stage 4. 5.Hyperkalemia. 6.Anemia, due to chronic kidney disease. 7.Hypertension. 8.Hyperlipidemia. 9.Hypothyroidism. 10.Diverticulosis. 11.Benign prostatic hypertrophy. AUNG/MODL Voice ID: [id number] Report ID: [id number]
== END 2019-01-19 11:21 | disposition home or self-care (01) | DRG 281 ==
LOC: ER 04:40 → OBSVTOIN 06:32 → ERHOLD 06:32 → INTOOBSV 06:32 → 2ND 07:43
PROVIDERS: ADMIT Internal Medicine; ATTEND Internal Medicine
DX: I21.4 Non-ST elevation (NSTEMI) myocardial infarction (principal); N18.4 Chronic kidney disease, stage 4 (severe); I24.9 Acute ischemic heart disease, unspecified; I25.10 Atherosclerotic heart disease of native coronary artery without angina pectoris; E87.5 Hyperkalemia; N40.0 Benign prostatic hyperplasia without lower urinary tract symptoms; K57.90 Diverticulosis of intestine, part unspecified, without perforation or abscess without bleeding; E03.9 Hypothyroidism, unspecified; E78.5 Hyperlipidemia, unspecified; D63.1 Anemia in chronic kidney disease; I12.9 Hypertensive chronic kidney disease with stage 1 through stage 4 chronic kidney disease, or unspecified chronic kidney disease; E11.22 Type 2 diabetes mellitus with diabetic chronic kidney disease; E11.65 Type 2 diabetes mellitus with hyperglycemia; Z86.73 Personal history of transient ischemic attack (TIA), and cerebral infarction without residual deficits
CPT/HCPCS: 36415; 71045; 80048; 80061; 80076; 82947; 82962; 83735; 83880; 84443; 84484; 85025; 85610; 93005; 93306; 96374; 99285; J1650

== ENCOUNTER 2019-01-20 12:42 | Inpatient (IN) | payer OTHER ==
--- NOTE | 2019-01-20 13:34 | RAD REPORT ---
EXAM DESCRIPTION: CT - Head C Spine Mpr Wo Con - 01/20/2019 1:24 pm CLINICAL HISTORY: Head and neck injury status post fall. Head and neck pain COMPARISON: None. TECHNIQUE: Computed axial tomography of the head and cervical spine was obtained. Sagittal and coronal reconstruction was performed. All CT scans are performed using dose optimization technique as appropriate and may include automated exposure control or mA/KV adjustment according to patient size. FINDINGS: An intracranial bleed is not seen. The ventricles are normal in caliber. An extra-axial fl uid collection is not noted.Fluid within the visualized sinuses and mastoids is not seen A cervical fracture is not visualized. No dislocation is noted. IMPRESSION: No acute intracranial abnormality is seen. A cervical fracture is not visualized. If the patient continues to have symptoms to suggest intracra nial /spinal cord pathology then MRI would be recommended
--- NOTE | 2019-01-20 13:49 | RAD REPORT ---
EXAM DESCRIPTION: Travis Single View01/20/2019 1:38 pm CLINICAL HISTORY: Chest pain COMPARISON: January 17, 2019 FINDINGS: Bilateral interstitial lung opacities on the prior exam appear resolved. The lungs appear clear of acute infiltrate. The heart is borderline enlarged.
[2019-01-20 15:08] LABS: Absolute Lymphocytes (CBC) 1.1 K/uL (0.7-4.9); Absolute Monocytes 0.7 K/uL (0.1-1.3); Absolute Neutrophil 7.4 K/uL (1.8-8.0); Basophils % 0.6 % (0-1.3); Eosinophils % 1.3 % (0-4.4); Hematocrit 37.1 % (39.6-49.0); Lymphocytes % 11.9 % (15.3-44.8); MPV 11.8 fL (7.6-11.3)
[2019-01-20 15:20] LABS: Albumin 3.5 g/dL (3.4-5.0); Bilirubin Total 0.5 mg/dL (0.2-1.0); Potassium 3.9 mmol/L (3.5-5.1); Protein, Total 7.7 g/dL (6.4-8.2)
--- NOTE | 2019-01-20 15:40 | EDPHYS ---
Physician Documentation [facility] Name: Abner Perea Age: 88 yrs Sex: Male : 1930 Arrival Date: 01/20/2019 Time: 12:43 Bed 6 Private MD: Nica Puga C ED Physician Lloyd Landin HPI: 01/20 15:33 This 88 yrs old Male presents to ER via Ambulatory with complaints of Fall ps1 Injury. Historical: - Allergies: 12:50 No Known Allergies; hj - Home Meds: 12:50 aspirin 81 mg Oral TbEC 1 tab once daily [Active]; bumetanide 2 mg Oral tab 1.5 tab 2 hj times per day [Active]; Isosorbide 30mg Daily [Active]; Levemir 100 unit/mL subcutaneous soln [Active]; levothyroxine 88 mcg tab 1 tab once daily [Active]; levothyroxine 200 mcg tab 1 tab once daily [Active]; Novolog 100 unit/mL Sub-Q soln three times a day [Active]; simvastatin 80 mg Oral tab daily [Active]; tamsulosin 0.4 mg Oral cp24 1 cap once daily [Active]; - PMHx: 12:50 Diabetes - IDDM; Hypertension; Hypothyroidism; Myocardial infarction; hj - PSHx: 12:50 None; hj - Immunization history:: Adult Immunizations up to date. - Social history:: Smoking status: Patient/guardian denies using tobacco, Patient/guardian denies using alcohol. - Immunization history: Last tetanus immunization: - up to date. - Ebola Screening: : Patient negative for fever greater than or equal to 101.5 degrees Fahrenheit, and additional compatible Ebola Virus Disease symptoms Patient denies exposure to infectious person Patient denies travel to an Ebola-affected area in the 21 days before illness onset. Vital Signs: 12:50 BP 161 / 67; Pulse 64; Resp 18; Temp 97.9(TE); Pulse Ox 99% on R/A; Weight 109.32 kg; hj Height 5 ft. 11 in. (180.34 cm); 13:53 BP 160 / 62; Pulse 74; Resp 18; Pulse Ox 99% on R/A; hj 14:47 BP 162 / 59; Pulse 77; Resp 18; Pulse Ox 98% on R/A; hj 12:50 Body Mass Index 33.61 (109.32 kg, 180.34 cm) Tiffany Coma Score: 12:53 Eye Response: spontaneous(4). Verbal Response: oriented(5). Motor Response: obeys hj commands(6). Total: 15. Trauma Score (Adult): 12:53 Eye Response: spontaneous(1); Verbal Response: oriented(1); Motor Response: obeys hj commands(2); Systolic BP: > 89 mm Hg(4); Respiratory Rate: 10 to 29 per min(4); Tiffany Score: 15; Trauma Score: 12 MDM: 12:55 Patient medically screened. [facility] 01/20 14:30 Order name: CBC with Diff; Complete Time: 15:39 [facility] 01/20 14:30 Order name: CMP; Complete Time: 15:39 [facility] 01/20 15:47 Order name: Urine Dipstick--Ancillary (enter results) bd 01/20 15:54 Order name: Basic Metabolic Panel EDPA 01/20 15:54 Order name: Basic Metabolic Panel EDPA 01/20 15:54 Order name: CBC with Automated Diff EDMS 01/20 12:55 Order name: CT Head C Spine; Complete Time: 14:29 [facility] 01/20 12:55 Order name: CXR XRAY; Complete Time: 14:29 [facility] 01/20 14:30 Order name: Urine Dipstick-Ancillary (obtain specimen); Complete Time: 15:32 [facility] 01/20 15:54 Order name: Heart Healthy EDMS 01/20 15:54 Order name: CBC with Automated Diff EDMS Administered Medications: No medications were administered Disposition: 01/20/19 15:39 Hospitalization ordered by Nica Puga for Observation. Preliminary diagnosis are Near syncope, Fall. - Bed requested for Telemetry/MedSurg (observation). - Status is Observation. hj - Condition is Stable. - Problem is an ongoing problem. - Symptoms are unchanged. UTI on Admission? No Signatures: Dispatcher [employer] EDPA Jennifer Choi Henry, RN RN hj Singer, Phillip, MD MD ps1 Corrections: (The following items were deleted from the chart) 16:29 15:39 Hospitalization Ordered by Nica Puga MD for Observation. Preliminary diagnosis is bd Near syncope; Fall. Bed requested for Telemetry/MedSurg (observation). Status is Observation. Condition is Stable. Problem is an ongoing problem. Symptoms are unchanged. UTI on Admission? No. ps1 16:52 16:29 01/20/2019 15:39 Hospitalization Ordered by A Vivien GARCIA for Observation. hj Preliminary diagnosis is Near syncope; Fall. Bed requested for Telemetry/MedSurg (observation). Status is Observation. Condition is Stable. Problem is an ongoing problem. Symptoms are unchanged. UTI on Admission? No. bd
--- NOTE | 2019-01-20 15:40 | ER ---
Nurse's Notes [facility] Name: Abner Perea Age: 88 yrs Sex: Male : 1930 Arrival Date: 01/20/2019 Time: 12:43 Bed 6 Private MD: Nica Puga C Diagnosis: Near syncope;Fall Presentation: 01/20 12:43 Presenting complaint: EMS states: called by family members, pt fell around 3 am and hj complaining of L arm pain, reports hitting head but denies LOC; taking aspirin 81 mg PO daily; reports blurry vision started 3 am; currently been D/C from [facility] for HI; BGL- 333; BP- 166/84; 95% O2 sat; HR- 77;. Care prior to arrival: None. Mechanism of Injury: Fall. Trauma event details: Injury occurred in the [facility], Injury occurred: at home. Injury occurred: January 20, 2019 Injury occurred at: 03:00. 12:43 Acuity: GEORGE 3 hj 12:43 Method Of Arrival: Ambulatory hj 12:54 Transition of care: patient was not received from another setting of care. Onset of hj symptoms was January 20, 2019 at 03:00. Risk Assessment: Do you want to hurt yourself or someone else? Patient reports no desire to harm self or others. Initial Sepsis Screen: Does the patient meet any 2 criteria? No. Patient's initial sepsis screen is negative. Does the patient have a suspected source of infection? No. Patient's initial sepsis screen is negative. Triage Assessment: 12:53 General: Appears in no apparent distress. uncomfortable, Behavior is calm, cooperative, hj appropriate for age. Pain: Complains of pain in left arm. Trauma Activation: Not Applicable Physician: ED Physician; Name: ; Notified At: ; Arrived At: Physician: General Surgeon; Name: ; Notified At: ; Arrived At: Physician: Radiology; Name: ; Notified At: ; Arrived At: Physician: Respiratory; Name: ; Notified At: ; Arrived At: Physician: Lab; Name: ; Notified At: ; Arrived At: Historical: - Allergies: 12:50 No Known Allergies; hj - Home Meds: 12:50 aspirin 81 mg Oral TbEC 1 tab once daily [Active]; bumetanide 2 mg Oral tab 1.5 tab 2 hj times per day [Active]; Isosorbide 30mg Daily [Active]; Levemir 100 unit/mL subcutaneous soln [Active]; levothyroxine 88 mcg tab 1 tab once daily [Active]; levothyroxine 200 mcg tab 1 tab once daily [Active]; Novolog 100 unit/mL Sub-Q soln three times a day [Active]; simvastatin 80 mg Oral tab daily [Active]; tamsulosin 0.4 mg Oral cp24 1 cap once daily [Active]; - PMHx: 12:50 Diabetes - IDDM; Hypertension; Hypothyroidism; Myocardial infarction; hj - PSHx: 12:50 None; hj - Immunization history:: Adult Immunizations up to date. - Social history:: Smoking status: Patient/guardian denies using tobacco, Patient/guardian denies using alcohol. - Immunization history: Last tetanus immunization: - up to date. - Ebola Screening: : Patient negative for fever greater than or equal to 101.5 degrees Fahrenheit, and additional compatible Ebola Virus Disease symptoms Patient denies exposure to infectious person Patient denies travel to an Ebola-affected area in the 21 days before illness onset. Screenin:51 Abuse screen: Denies threats or abuse. Denies injuries from another. Nutritional hj screening: No deficits noted. Tuberculosis screening: No symptoms or risk factors identified. Fall Risk Fall in past 12 months (25 points). Secondary diagnosis (15 points). Primary Survey: 12:52 NO uncontrolled hemorrhage observed. A: The patient is alert. Airway: patent, No hj supplemental oxygen in use on arrival. Oral cavity: clear, gag reflex present, Trachea midline. Breathing/Chest: Respiratory pattern: regular, Respiratory effort: spontaneous, unlabored, Breath sounds: clear, Chest inspection: symmetrical rise and fall of the chest. Circulation: Cardiac rhythm: sinus rhythm Heart tones present. Pulses: palpable right radial artery and left radial artery. Skin color: pink, Skin temperature: warm, dry. Disability Alert. Exposure/Environment: All clothing and personal items were removed. Forensic evidence collection is not deemed to be indicated at this time. Items placed in patient belonging bag. There is no evidence of uncontrolled external bleeding. No obvious injuries are noted at this time. A warming method has been applied: A warm blanket has been provided to the patient. 12:54 Reassessment Airway Airway Patent Oxygen No O2 Oral cavity Clear +Gag reflex Trachea hj Midline Breathing/Chest Circulation Heart rhythm Sinus rhythm Heart tones Present Pulses Palpable Color [place] Temperature Warm Dry Disability Alert. 13:44 Reassessment Airway Airway Patent Oxygen No O2 Oral cavity Clear +Gag reflex Trachea hj Midline Breathing/Chest Respiratory pattern Regular Respiratory effort Spontaneous Unlabored Breath sounds Clear Chest inspection Symmetrical Circulation Heart rhythm Sinus rhythm Heart tones Present Pulses Palpable Color [place] Temperature Warm Dry Disability Alert. 14:56 Reassessment Airway Airway Patent Oxygen No O2 Oral cavity Clear +Gag reflex Trachea hj Midline Breathing/Chest Respiratory pattern Regular Respiratory effort Spontaneous Unlabored Breath sounds Clear Chest inspection Symmetrical Circulation Heart rhythm Sinus rhythm Heart tones Present Pulses Palpable Color [place] Temperature Warm Dry Disability Alert. Secondary Survey: 12:56 HEENT: No deficits noted. Gastrointestinal: No deficits noted. : No signs and/or hj symptoms were reported regarding the genitourinary system. Musculoskeletal: Reports pain in left arm. Assessment: 12:50 General: Appears in no apparent distress. uncomfortable, obese, Behavior is calm, hj cooperative, appropriate for age. Pain: Complains of pain in left arm. Neuro: Level of Consciousness is awake, alert, obeys commands, Oriented to person, place, time, situation, Appropriate for age. EENT: No signs and/or symptoms were reported regarding the EENT system. Cardiovascular: Capillary refill < 3 seconds Patient's skin is warm and dry. Respiratory: Airway is patent Respiratory effort is even, unlabored, Respiratory pattern is regular, symmetrical. GI: No signs and/or symptoms were reported involving the gastrointestinal system. : No signs and/or symptoms were reported regarding the genitourinary system. Derm: Skin is. Musculoskeletal: No signs and/or symptoms reported regarding the musculoskeletal system. 13:50 Reassessment: Patient and/or family updated on plan of care and expected duration. Pain hj level reassessed. Patient is alert, oriented x 3, equal unlabored respirations, skin warm/dry/pink. 15:05 Reassessment: Patient and/or family updated on plan of care and expected duration. Pain hj level reassessed. Patient is alert, oriented x 3, equal unlabored respirations, skin warm/dry/pink. 16:18 Reassessment: daughterYudy, [phone];. hj Vital Signs: 12:50 BP 161 / 67; Pulse 64; Resp 18; Temp 97.9(TE); Pulse Ox 99% on R/A; Weight 109.32 kg; hj Height 5 ft. 11 in. (180.34 cm); 13:53 BP 160 / 62; Pulse 74; Resp 18; Pulse Ox 99% on R/A; hj 14:47 BP 162 / 59; Pulse 77; Resp 18; Pulse Ox 98% on R/A; hj 12:50 Body Mass Index 33.61 (109.32 kg, 180.34 cm) hj Remus Coma Score: 12:53 Eye Response: spontaneous(4). Verbal Response: oriented(5). Motor Response: obeys hj commands(6). Total: 15. Trauma Score (Adult): 12:53 Eye Response: spontaneous(1); Verbal Response: oriented(1); Motor Response: obeys hj commands(2); Systolic BP: > 89 mm Hg(4); Respiratory Rate: 10 to 29 per min(4); Remus Score: 15; Trauma Score: 12 ED Course: 12:43 Patient arrived in ED. hj 12:46 Triage completed. hj 12:47 Lloyd Landin MD is Attending Physician. ps1 12:48 Nica Puga MD is Private Physician. rg4 12:51 Arm band placed on right wrist. hj 12:55 Patient has correct armband on for positive identification. Placed in gown. Bed in low hj position. Call light in reach. Side rails up X 1. 12:55 Patient maintains SpO2 saturation greater than 95% on room air. hj 12:56 Alex Carr RN is Primary Nurse. hj 12:56 Thermoregulation: warm blanket given to patient. hj 13:00 Missed attempt(s): 20 gauge in left antecubital area. Bleeding controlled, band aid dh3 applied, catheter tip intact. 13:05 Missed attempt(s): 20 gauge in right antecubital area. Bleeding controlled, band aid pc1 applied, catheter tip intact. 13:18 X-ray completed. Portable x-ray completed in exam room. Patient tolerated procedure jb2 well. 13:21 CT completed. Patient tolerated procedure well. Patient moved to CT via stretcher. jg6 13:25 CT Head C Spine In Process Unspecified. EDMS 13:41 CXR XRAY In Process Unspecified. EDMS 14:36 Initial lab(s) drawn, by me, sent to lab. Inserted saline lock: 22 gauge in left antecubital area, using aseptic technique. Blood collected. 14:42 CMP Sent. 14:42 CBC with Diff Sent. 15:38 Nica Puga MD is Hospitalizing Provider. ps1 16:43 No provider procedures requiring assistance completed. Patient admitted, IV remains in hj place. intact. Administered Medications: No medications were administered Output: 16:44 Urine: 100ml (Voided); Total: 100ml. Outcome: 15:39 Decision to Hospitalize by Provider. ps1 16:43 Admitted to Tele accompanied by [facility], via stretcher, room 401, with chart, Report hj called to IFTIKHAR Brown 16:43 Condition: stable 16:43 Instructed on the need for admit, Demonstrated understanding of instructions. 16:44 Patient's length of stay was not longer than 2 hours. 16:52 Patient left the ED. Signatures: Dispatcher [employer] EDMS Gerry Lagunas jb2 Alex Carr RN RN Danna Rg 4 Valentina Velez 3 Lloyd Landin MD MD ps1 Kady Rg jg6 Martell Pena pc1 Corrections: (The following items were deleted from the chart) 14:48 12:50 BP 161 / 67; Pulse 64bpm; Resp 18bpm; Pulse Ox 99% RA; 109.32 kg; Height 5 ft. 11 hj in.; BMI: 33.6; hj
[2019-01-20] MEDS ORDERED: MORPHINE 4 MG/ML SYR IV PRN (15:41)
[2019-01-20] MEDS ORDERED: ONDANSETRON 4 MG/2 ML VIAL IV PRN (15:41)
[2019-01-20 17:24] VITALS: BMI 33.6
[2019-01-20 18:27] LABS: Urine Blood 1+ (NEG); Urine Glucose 2+ (NEG); Urine Protein 2+ (NEG); Urine pH 6.5 (5.0-7.0)
[2019-01-20] MEDS ORDERED: D50W 25 GM/50 ML SYRINGE IV PRN (20:31)
[2019-01-20] MEDS ORDERED: GLUCAGON 1 MG/VIAL IM PRN (20:31)
[2019-01-20] MEDS: TAMSULOSIN 0.4 MG PO SCH (21:00)
[2019-01-20] MEDS: INSULIN DETEMIR U SQ SCH (21:00)
[2019-01-20] MEDS: INSULIN -REGULAR HUMAN 50 UNIT/0.5 ML ML SQ SCH (21:01)
[2019-01-20] MEDS: ENOXAPARIN 30 MG/0.3 ML SQ SCH (21:02)
[2019-01-20] MEDS ORDERED: VANCOMYCIN 1 GM/VIAL ONE (22:21)
[2019-01-21 00:18] LABS: Urine Appearance CLEAR; Urine Bilirubin NEGATIVE (NEG); Urine Blood TRACE (NEG); Urine Color YELLOW; Urine Glucose 3+ (NEG); Urine Protein 1+ (NEG); Urine Urobilinogen 0.2 mg/dL (0.2-1.0)
[2019-01-21 00:41] LABS: Urine Microscopic Reflex ORDER UMIC
[2019-01-21 00:59] LABS: Urine Bacteria <20 /HPF (NONE SEEN); Urine Culture Reflex Order NOT NEEDED; Urine RBC <5 /HPF (NONE SEEN)
[2019-01-21 04:13] LABS: Absolute Lymphocytes (CBC) 1.5 K/uL (0.7-4.9); Absolute Monocytes 1.2 K/uL (0.1-1.3); Absolute Neutrophil 5.8 K/uL (1.8-8.0); Basophils % 1.1 % (0-1.3); Eosinophils % 1.5 % (0-4.4); Lymphocytes % 17.5 % (15.3-44.8); MPV 11.8 fL (7.6-11.3); Monocytes % 13.9 % (3.3-12.3); RBC Red Blood Cell Count 3.98 M/uL (4.33-5.43)
[2019-01-21 04:36] LABS: Potassium 3.2 mmol/L (3.5-5.1)
[2019-01-21] MEDS: INSULIN -REGULAR HUMAN 50 UNIT/0.5 ML ML SQ SCH ×5 (05:30→20:56)
--- NOTE | 2019-01-21 05:45 | HP ---
Date of Admission: 01/20/2019 Chief Complaint: Feeling weak, dizzy, nausea, and falling down. History Of Present Illness: This is a very pleasant 88-year-old male patient who was recently admitted to the hospital on 01/17/2019, and was discharged to go home yesterday. His last hospital admission was due to chest pain and acute coronary syndrome. Medical management was provided. The patient was feeling fine when he was discharged yesterday. He was ambulating well and had no complaints of any chest pain, shortness of breath, headache, dizziness. After he went home, he was feeling fine all day yesterday, and during nighttime around 3 o'clock in the morning or so, he decided to go to the bathroom and as he was trying to get out of bed, he fell down right next to bed face forward. Then, second time he fell down around 5 o'clock in the morning when he was trying to get out of bed and go to bathroom again. He had 1 more fall at home. The patient's daughter who is a nurse checked on him and she was concerned about the patient was trying to lean on one side. She thought that his left arm might have been little weaker. His blood pressure was stable around 147/70 or so with normal pulse rate and daughter contacted my office and was advised to bring patient to the emergency room. After he was evaluated, he was admitted to the hospital. He denies any chest pain, shortness of breath. No headache. He had some blurred vision with this episode. He was able to recognize me when I saw him in emergency room and daughter was with him at bedside. Medications: Levemir insulin 20 units in the morning, 15 units in the evening; Toprol-XL 50 mg 2 times a day; isosorbide 60 mg p.o. daily. These are changes in medication. Otherwise, his medication list reviewed as well. Allergies: No known allergies. Review of Systems: MORNING NANNY: As mentioned above. Constitutional: As mentioned above. All other systems reviewed and negative. Past Medical History: Hypertension; osteoarthritis, multiple sites; chronic kidney disease stage 4; hyperlipidemia; type 2 diabetes mellitus; diverticulosis ; leg edema; hypothyroidism; benign prostatic hypertrophy; coronary artery disease. Past Surgical History: Cataract surgery, tonsillectomy. Family History: Hypertension, stroke, gastric cancer. Social History: Negative for smoking and alcohol use. Physical Examination: Vital Signs: When he came in, temperature 97.9, pulse 64, respiratory rate 18, blood pressure 161/67, oxygen saturation 99%. Height 5 feet 11 inches, weight 241 pounds. General: Awake, alert, oriented, not in distress. HEENT: Head atraumatic, normocephalic. Conjunctivae nonerythematous. Sclerae white. Mouth, no thrush or edema noted. Ears/Nose, no mass, lesion, discharge noted. Neck: Supple. No JVD, lymph nodes, bruit, thyromegaly noted. Lungs: Bilateral good equal air entry. Clear to auscultation. No rhonchi. No rales. Heart: Normal heart sounds, no murmur or gallop. Abdomen: Soft, bowel sounds normal. No guarding, rigidity, tenderness, mass, hepatosplenomegaly, distention, or bruit noted. Extremities: No leg edema. No calf tenderness. Skin: No rash, ulcer, cellulitis. Lymphatics: No lymph node enlargement in neck, supraclavicular, infraclavicular region. Neuro: No focal neurological deficit. Chest: Unremarkable. External Genitalia: Deferred. Rectal: Deferred. Laboratory Data: Chest x-ray, no acute intrathoracic changes. CAT scan of the head and cervical spine, no acute intracranial changes, cervical spine degenerative changes, no fracture. White count 9.4, hemoglobin 12.1, platelets 192. Sodium 134, potassium 3.9, chloride 94, bicarb 31, BUN 72, creatinine 3, glucose 376. Liver function tests unremarkable. 1+ blood, 2+ protein. Impression: 1. Dizziness. 2. Blurred vision. 3. Rule out stroke. 4. Chronic kidney disease stage 4. 5. Anemia due to chronic kidney disease. 6. Coronary artery disease. 7. Hypertension. 8. Hyperlipidemia. 9. Type 2 diabetes mellitus, uncontrolled. 10. Hypothyroidism. 11. Diverticulosis. 12. Benign prostatic hypertrophy. Plan: Admit the patient to hospital for further evaluation and management of this problem. We will go ahead and continue home medications per order. Give Lovenox 30 mg subcutaneous injection daily starting tonight. Diabetes will be managed with insulin and sliding scale per order. Fall precaution and physical therapy were ordered. We will get MRI of the brain done as I am concerned about possibility of stroke. Details were discussed with the patient and the patient's daughter who was at bedside. I will see him tomorrow morning for followup. AUNG/AGUILA Voice ID: [id number] MTDD
[2019-01-21] MEDS: INSULIN DETEMIR U SQ SCH ×2 (06:00→20:53)
--- NOTE | 2019-01-21 10:21 | RAD REPORT ---
EXAM DESCRIPTION: MRI - Brain Wo Cont - 01/21/2019 9:23 am CLINICAL HISTORY: Frequent falls, syncope COMPARISON: CT head January 20 TECHNIQUE: Sagittal T1-weighted images were obtained along with axial PD, heavily T2-weighted and T2 -FLAIR images. Axial DWI and ADC mapping sequences were also obtained along with coronal heavily T2-w eighted images. FINDINGS: No intracranial hemorrhage or mass lesion identifiable. No mass effect, edema or shift of midline structures. Diffusion-weighted imaging shows a punctate 2- 3 millimeter focus of abnormal sig nal at the posterior inferior aspect of the left inferior cerebellar peduncle with the medulla. There is corresponding diminished signal on ADC mapping. Again noted is the underlying significant atrophy and cerebral chronic ischemic change. There is cent ral pontine chronic ischemic change as well. No extra-axial fluid collections. Ward-matter/white cornelius er junction is preserved. Signal voids are seen as a normal finding in the major intracranial vessels . Ventricular size is in proportion to volume loss. No acute globe or orbital content abnormality. No sella or supra sella abnormality. Mastoid air cells and paranasal sinuses are clear. IMPRESSION: Small 2-3 mm sized acute nonhemorrhagic infarction at the posterior margin of the medull a - left inferior cerebellar peduncle. Prominent underlying atrophy and chronic ischemic change.
--- NOTE | 2019-01-21 11:07 | RAD REPORT ---
EXAM DESCRIPTION: - CP - 01/21/2019 9:17 am CLINICAL HISTORY: dizziness, double vision Headache, drowsiness COMPARISON: Head C Spine Mpr Wo Con dated 01/20/2019; Brain Wo Cont dated 01/21/2019 TECHNIQUE: Real-time sonographic evaluation of both carotid systems was performed. Doppler interroga tion was performed with waveform tracing bilaterally. FINDINGS: Normal high resistance waveforms are noted in both external carotid arteries. The common c arotid arteries and internal carotid arteries show normal low resistance waveforms. Moderate hard plaque is seen involving both carotid bulb/proximal internal carotid arteries. Peak sys tolic and end diastolic velocity values and the ICA/CCA ratios are in the non-hemodynamically signifi cant range. Antegrade flow seen in both vertebral arteries. IMPRESSION: Moderate hard plaquing is seen involving both carotid bulb/proximal internal carotid art eries. No evidence of a hemodynamically significant stenosis.
[2019-01-21] MEDS: MULTIVIT W/ MINERAL TAB PO SCH (11:39)
[2019-01-21] MEDS: LEVOTHYROXINE 88 MCG PO SCH (11:40)
[2019-01-21] MEDS: BUMETANIDE 2 MG PO SCH ×2 (11:43→18:17)
[2019-01-21] MEDS ORDERED: cloNIDine HCl 0.1 MG TAB PO PRN (15:24)
--- NOTE | 2019-01-21 18:47 | CON ---
Reason For Consultation: Consultation called because of stroke History Of Present Illness: Mr. Perea is an 88-year-old patient with coronary artery disease, who rec ently had 2 myocardial infarctions within the last month, who is admitted to the hospital with stroke symptoms and an MRI confirming a stroke. He said 1 month ago, he was in [place], had chest pain and he was evaluated and diagnosed with myocardial infarction. He recovered fairly well from that m yocardial infarction, and came back home to the local area when last Friday while celebrating his juljeri's birthday democrat, he had 3 alcoholic drinks and later on developed chest pain and went back [facility] for an evaluation. He was again diagnosed with a second myocardial infarction. He was admitted to the hospital for 3 days and after he was discharged home on Friday evening, he went back home and went to bed and woke up around 2 in the morning and found that he was unable to ma intain his balance. He fell to the left, bruised his elbows and arms. He tried to get back up, but was unable to and his eventually was able to assist him to the bed and he [facility] early in the morning on Friday that is yesterday, today is . At [facility], his head and cervical spine CT scan revealed no fractures, no acute ischemic or hemorrhagic goins e, however, his brain MRI stroke protocol identified a 3 mm stroke. It is acute, nonhemorrhagic in t he posterior margin of the medulla and the left inferior cerebellar peduncle junction. The patient hermes leonardo said along with his left-sided weakness, he had diplopia or double vision and some difficulty wit h arm coordination. Since hospitalization, symptoms remain largely unchanged. Workup thus far inclu juve a carotid artery ultrasound, which showed no hemodynamically significant stenosis, but moderate h ronny plaque in both carotid bulbs. His chest x-ray showed no acute cardiopulmonary processes bilatera lly. It should be noted there was no report of an NIH Stroke Scale while the patient was in the [facility] room. Past Medical History: Significant for coronary artery disease, insulin-dependent diabetes mellitus, hypertension, hypothyroidism, recent myocardial infarctions. Past Surgical History: None. Allergies: NO KNOWN DRUG ALLERGIES. Home Medications: Aspirin 81 mg daily, bumetanide 2 mg twice daily, isosorbide 30 mg daily, Levemir 100 units/mL. He is taking that subcutaneously daily. Levothyroxine 88 mcg daily, NovoLog 3 times d aily, simvastatin 80 mg at bedtime, Flomax 0.4 mg at night. Family History: His father did have a stroke. Review of Systems: Prior to his recent stroke with his incoordination, he denied any fevers, chills, nausea, vomiting, m yalgias, arthralgias. He ambulated without an assistive device, has no problems with balance, coordi nation or gait, and had no genitourinary, gastrointestinal, or other active issues. Physical Examination: Vital Signs: Blood pressure 181/77, pulse 52, respiratory rate 18, temperature 97.4, oxygen saturati on 94%. Weight 241 pounds, height 5 feet 11 inches, BMI 32.6. General: Mr. Perea is resting in his bed comfortably. He is in no acute distress. He has a marked b ruising in the forearms bilaterally and had some swelling on the right forearm from his fall with no fracture noted there. HEENT: He is otherwise atraumatic and normocephalic. Sclerae are anicteric. Oropharynx is moist an d pink. Neck: Supple. Chest: Clear. Heart: Regular. EXTREMITIES: Show there is no edema in the lower extremities. NEUROLOGIC: He is alert and oriented to situation, place, and person. He has no expressive or reception manager tive aphasias. He has intact labial, lingual and guttural sounds. He does have actually diplopia wh en looking in the left lateral field. It is [id number]. It does resolve somewhat as he looks to t he right lateral visual field. There is some diplopia also as he tries to look far upwards, otherwis e the cranial nerves are intact in terms of sensation of the face, in terms of tongue and palate bein g in a midline and facial excursions are equal bilaterally. Hearing intact to finger rub bilaterally . Motor examination: In the upper extremities, he has 5/5 strength proximally and distally. In the lower extremities as well 5/5 strength proximally and distally. He does have some past-pointing not ed more on the left than on the right and some difficulty with fine finger movements on the left comp ared to the right side. In terms of lower extremity coordination, he is able to do [id number] bila terally, but slight difficulty noted on the left. He has again full strength. Sensory exam shows st ocking-glove loss to light touch, temperature in the arms and legs. Reflexes are depressed, but symm etric in the upper and lower extremities. Gait, he does tend to drift to the left and fall to the le ft and requires moderate assistance. Laboratory Studies: White blood cell count 8.8, hemoglobin 11.8, hematocrit 36, platelets 202. Chem istries: His glucose is elevated to ranging 577 earlier yesterday and today, the best glucose 236. His creatinine elevated 3.0 yesterday, today 2.82. Sodium 133, potassium 3.2, chloride 93. Urinalys is shows 2+ glucose 1+, protein, trace blood, 1+ ketones. Assessment: Mr. 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 He is actually doing well in terms of his deficits, which include diplopia and ataxia on the left with gait involvement in particu lar. Plan: 1.The patient should have a fasting lipid panel. 2.He should be on high dose statin. 3.Aspirin 81 mg daily along with Plavix 75 mg daily and folate 1 mg daily. 4.Lovenox 30 mg subcutaneously daily. 5.At this point, he may have some permissive hypertension. 6.The patient should be transferred for aggressive inpatient rehabilitation to help him regain coord ination, balance, gait as well. 7.He should be fully evaluated by swallow. Please note, NIH Stroke Scale was 3 for his incoordinati on, visual field deficits. TRUDY/AGUILA Voice ID: [id number] Report ID: [id number]
[2019-01-21] MEDS: TAMSULOSIN 0.4 MG PO SCH (20:55)
[2019-01-21] MEDS: ENOXAPARIN 30 MG/0.3 ML SQ SCH (20:56)
--- NOTE | 2019-01-22 00:48 | PN ---
Date of Progress Note: 01/21/2019 Subjective: The patient was seen this morning for followup. He denied any headache, nausea, or vomi ting. No chest pain. No shortness of breath. The only complaint he had was some blood vision and d ouble vision. Objective: Vital Signs: Reviewed. HEENT: Unremarkable. Lungs: Clear to auscultation. Heart: Sounds normal. Abdomen: Soft. Bowel sounds normal. No guarding, rigidity, tenderness, or distention. Extremities: Trace leg edema. SUBWAY TRAIN OPERATOR: No focal neurological deficits. Laboratory Data: White count 8.8, hemoglobin 11.8, and platelets 202. Sodium 133, potassium 3.2, ch loride 93, bicarb 30, BUN 75, creatinine 2.82, and glucose 454. Imagin.MRI of the brain shows 2- to 3-mm acute nonhemorrhagic stroke. 2.Carotid Doppler shows bilateral carotid artery plaquing, but no evidence of hemodynamically signif icant stenotic lesion. Impression: 1.Stroke. 2.Hypertension. 3.Diabetes mellitus. 4.Hyperlipidemia. 5.Coronary artery disease. 6.Chronic kidney disease stage 4. Plan: We will go ahead and continue current medications including aspirin, statin therapy, and antih ypertensive medication. After I reviewed his MRI result, Physical Therapy and Neurology consultation was requested. We will also request rehab consultation. The patient's blood pressure was elevated today, and clonidine was started. We will continue his other medications, and I will see him tomorrow for followup. The godfrey ent is appropriate for inpatient. AUNG/MODL Voice ID: [id number] Report ID: [id number]
[2019-01-22] MEDS: INSULIN DETEMIR U SQ SCH ×3 (06:00→21:30)
[2019-01-22] MEDS: LEVOTHYROXINE 88 MCG PO SCH (06:09)
[2019-01-22] MEDS: LEVOTHYROXINE SODIUM 200 MCG PO SCH (06:09)
[2019-01-22] MEDS: INSULIN -REGULAR HUMAN 50 UNIT/0.5 ML ML SQ SCH ×4 (07:30→21:30)
[2019-01-22] MEDS ORDERED: INSULIN GLARGINE 100 UNITS/ML SQ SCH ×2 (08:00→21:00)
[2019-01-22] MEDS: ASPIRIN EC 81 MG TAB PO SCH (08:58)
[2019-01-22] MEDS: BUMETANIDE 2 MG PO SCH ×2 (08:58→17:57)
[2019-01-22] MEDS: CLOPIDOGREL 75 MG TABLET PO SCH (09:04)
[2019-01-22] MEDS: MULTIVIT W/ MINERAL TAB PO SCH (09:04)
[2019-01-22] MEDS: FOLIC ACID 1 MG TABLET PO SCH (09:04)
[2019-01-22] MEDS ORDERED: GLUCAGON 1 MG/VIAL IM PRN ×3 (09:16→21:03)
[2019-01-22] MEDS ORDERED: D50W 25 GM/50 ML SYRINGE IV PRN ×3 (09:16→21:03)
[2019-01-22] MEDS ORDERED: INSULIN -REGULAR HUMAN 50 UNIT/0.5 ML ML IV ONE (18:00)
[2019-01-22] MEDS: TAMSULOSIN 0.4 MG PO SCH (21:29)
[2019-01-22] MEDS: ENOXAPARIN 30 MG/0.3 ML SQ SCH (21:31)
--- NOTE | 2019-01-22 22:23 | PN ---
Date of Progress Note: 01/22/2019 Subjective: The patient was seen this morning for followup. No new complaints or problems reported by the patient. Lying in bed, not in distress. Still has some double vision, but it is better today than yesterday. No nausea, vomiting. No headache. No chest pain. No shortness of breath. Objective: Vital Signs: Reviewed. HEENT: Unremarkable. Lungs: Clear to auscultation. No rhonchi, rales. Heart: Sounds normal. Abdomen: Soft. Bowel sounds normal. No guarding, rigidity, tenderness, or distention. Extremities: No leg edema. Laboratory Data: Triglycerides 254, total cholesterol 176, LDL 90, HDL 35. Fingerstick blood sugar readings reviewed. Impression: 1. Stroke. 2. Diabetes mellitus, uncontrolled. 3. Hypertension. 4. Chronic kidney disease stage 4. 5. Coronary artery disease. Plan: We will continue current medication. Yesterday, clonidine was started on a p.r.n. basis for hypertension. We will continue that. Continue current other antihypertensive medications, diabetes management, and insulin dose was changed as of this morning to Levemir 30 units every morning and 15 units at nighttime per order after reviewing fingerstick blood sugar readings. The patient has not ambulated yet with Physical Therapy. Rehab consult is in place. We are waiting for insurance authorization for inpatient rehab benefit. Meanwhile, Physical Therapy to continue to work with the patient. The patient has not ambulated yet with therapy. We hope that he can start ambulating today. His fingerstick blood sugar today also has gone up. Last blood sugar reading this evening was higher than 400. Blood glucose was 474. So on top of his sliding scale insulin, 8 units of regular insulin IV was ordered, and we will check his blood sugar 30 minutes and 60 minutes after this injection. Neurology consult from Dr. Brewster is appreciated and as per his recommendation, Plavix and Folic acid therapy was started. I will see him tomorrow for followup. AUNG/MODL Voice ID: [id number] Report ID: [id number] MTDD
[2019-01-23] MEDS: LEVOTHYROXINE SODIUM 200 MCG PO SCH (05:42)
[2019-01-23] MEDS: LEVOTHYROXINE 88 MCG PO SCH (05:43)
[2019-01-23] MEDS: INSULIN -REGULAR HUMAN 50 UNIT/0.5 ML ML SQ SCH ×4 (07:30→21:09)
[2019-01-23] MEDS: INSULIN DETEMIR U SQ SCH ×2 (08:00→20:58)
[2019-01-23] MEDS: ASPIRIN EC 81 MG TAB PO SCH (09:00)
[2019-01-23] MEDS: FOLIC ACID 1 MG TABLET PO SCH (09:48)
[2019-01-23] MEDS: MULTIVIT W/ MINERAL TAB PO SCH (09:48)
[2019-01-23] MEDS: BUMETANIDE 2 MG PO SCH ×2 (10:51→17:29)
[2019-01-23] MEDS: CLOPIDOGREL 75 MG TABLET PO SCH (10:52)
[2019-01-23] MEDS ORDERED: INSULIN -REGULAR HUMAN 50 UNIT/0.5 ML ML IV ONE (12:37)
--- NOTE | 2019-01-23 14:09 | PN ---
Date of Progress Note: 01/23/2019 Subjective: The patient was seen this morning for followup. No new complaints or problems reported by patient. Lying in bed, not in any distress. Objective: Vital Signs: Reviewed. HEENT Examination: Unremarkable. Lungs: Clear to auscultation. Heart: Sounds normal. Abdomen: Soft. Bowel sounds normal. No guarding, rigidity, tenderness, or distention. Extremities: No leg edema. Laboratory Data: Fingerstick blood sugar readings reviewed. Impression: 1.Stroke. 2.Diabetes mellitus, uncontrolled. 3.Hypertension. 4.Coronary artery disease. 5.Chronic kidney disease, stage 4. Plan: The patient will continue current diabetes management. Fingerstick blood sugar readings revie fri. We will continue current antihypertensive medication and cardiac medication. Continue aspirin, Plavix, folic acid for stroke. Physical therapy to continue to work with the patient and the patien t reported that yesterday he ambulated from his bed to the door 1 time with physical therapy. We hop e that he can continue to progress with physical therapy as the time goes on and we are waiting for insurance company's approval for patient to go to inpatient rehab. AUNG/MODL Voice ID: [id number] Report ID: [id number]
[2019-01-23] MEDS: TAMSULOSIN 0.4 MG PO SCH (20:54)
[2019-01-23] MEDS: ENOXAPARIN 30 MG/0.3 ML SQ SCH (21:02)
[2019-01-24] MEDS: LEVOTHYROXINE 88 MCG PO SCH (05:58)
[2019-01-24] MEDS: LEVOTHYROXINE SODIUM 200 MCG PO SCH (05:59)
[2019-01-24] MEDS: INSULIN -REGULAR HUMAN 50 UNIT/0.5 ML ML SQ SCH ×4 (07:30→21:33)
[2019-01-24] MEDS: INSULIN DETEMIR U SQ SCH (08:20)
[2019-01-24] MEDS: ASPIRIN EC 81 MG TAB PO SCH (09:00)
[2019-01-24] MEDS: BUMETANIDE 2 MG PO SCH ×2 (09:21→16:19)
[2019-01-24] MEDS: CLOPIDOGREL 75 MG TABLET PO SCH (09:21)
[2019-01-24] MEDS: MULTIVIT W/ MINERAL TAB PO SCH (09:21)
[2019-01-24] MEDS: FOLIC ACID 1 MG TABLET PO SCH (09:21)
--- NOTE | 2019-01-24 14:00 | PN ---
Date of Progress Note: 01/24/2019 Subjective: The patient was seen this morning for followup. No new complaints or problems reported by patient. He was sleeping, easily arousable, not in any distress. Yesterday, the patient reports that he did get out of bed and walked in the room with assistance. He still has dizziness when he ge ts up and walks around and still has double vision, but that seems to be improving on a daily basis. No nausea, vomiting, chest pain, shortness of breath. Objective: Vital Signs: Reviewed. HEENT: Unremarkable. Lungs: Clear to auscultation. Heart: Sounds normal. Abdomen: Soft. Bowel sounds normal. No guarding, rigidity, tenderness, or distention. Extremities: No leg edema. Neuro: No focal neurological deficits. Impression: 1.Stroke. 2.Hypertension. 3.Diabetes mellitus. 4.Coronary artery disease. 5.Chronic kidney disease stage 4. Plan: 1.Fingerstick blood sugar readings reviewed. The patient has not had hypoglycemia in last 24 hours, so that is a good sign now. We hope that we can continue to make adjustment on his insulin on basis of his blood sugar readings. What I have done today is increase dose of Levemir insulin to 40 units subcutaneous injection every morning and continue 15 units subcutaneous injection at bedtime. We wi ll also continue sliding scale insulin per order. Continue aspirin, Plavix, folic acid, and other current medications. We will see him tomorrow for followup. AUNG/MODL Voice ID: [id number] Report ID: [id number]
[2019-01-24] MEDS ORDERED: INSULIN DETEMIR 15 UNIT SQ SCH ×2 (21:00)
[2019-01-24] MEDS: TAMSULOSIN 0.4 MG PO SCH (21:31)
[2019-01-24] MEDS: ENOXAPARIN 30 MG/0.3 ML SQ SCH (21:34)
[2019-01-25] MEDS: LEVOTHYROXINE SODIUM 200 MCG PO SCH (05:41)
[2019-01-25] MEDS: INSULIN -REGULAR HUMAN 50 UNIT/0.5 ML ML SQ SCH ×4 (07:30→20:36)
[2019-01-25] MEDS: ASPIRIN EC 81 MG TAB PO SCH (09:00)
[2019-01-25] MEDS: BUMETANIDE 2 MG PO SCH ×2 (10:00→16:48)
[2019-01-25] MEDS: CLOPIDOGREL 75 MG TABLET PO SCH (10:03)
[2019-01-25] MEDS: FOLIC ACID 1 MG TABLET PO SCH (10:03)
[2019-01-25] MEDS: MULTIVIT W/ MINERAL TAB PO SCH (10:03)
[2019-01-25] MEDS: INSULIN GLARGINE 100 UNITS/ML SQ SCH (12:19)
[2019-01-25] MEDS ORDERED: D50W 25 GM/50 ML SYRINGE IV PRN ×2 (13:38→15:12)
[2019-01-25] MEDS ORDERED: GLUCAGON 1 MG/VIAL IM PRN ×2 (13:38→15:12)
[2019-01-25] MEDS ORDERED: INSULIN -REGULAR HUMAN 50 UNIT/0.5 ML ML IV ONE ×2 (13:38→15:22)
[2019-01-25 17:52] VITALS: O2SAT 96
[2019-01-25] MEDS: ENOXAPARIN 30 MG/0.3 ML SQ SCH (20:35)
[2019-01-25] MEDS: TAMSULOSIN 0.4 MG PO SCH (20:38)
[2019-01-25] MEDS ORDERED: INSULIN GLARGINE 100 UNITS/ML SQ SCH (21:00)
--- NOTE | 2019-01-26 02:42 | PN ---
Date of Progress Note: 01/25/2019 Subjective: The patient was seen this morning for followup. No new complaints or problems reported by him. His double wheezing problem has almost resolved now. No headache. No nausea, vomiting. No chest pain. No shortness of breath. Objective: Vital Signs: Reviewed. HEENT: Unremarkable. Lungs: Clear to auscultation. Heart: Sounds normal. Abdomen: Soft. Bowel sounds normal. No guarding, rigidity, tenderness, or distention. Extremities: No leg edema. Laboratory Data: Fingerstick blood sugar readings reviewed. Impression: 1.Stroke. 2.Diabetes mellitus, uncontrolled. 3.Hypertension. 4.Coronary artery disease. Plan: We will have Physical Therapy continue to work with the patient. Continue current antihyperte nsive medication and anti-platelet therapy, which is aspirin and Plavix. The patient will be going t o inpatient rehab tomorrow. Today, he did not get his Levemir insulin in the morning per order, and by the time he got the Levemir insulin, it was close to lunch time. His blood sugar was elevated thi s afternoon and this evening. This afternoon, he received 10 units of regular insulin IV and subsequ ently another 5 units of regular insulin IV. We have monitored his fingerstick blood sugar very freq uently, and this morning I did increase his dose of Levemir insulin from 40 units up to 45 units daily. Evening dose will remain same at 15 units daily. I will see him tomorrow for followup. AUNG/MODL Voice ID: [id number] Report ID: [id number]
[2019-01-26] MEDS: LEVOTHYROXINE 88 MCG PO SCH (05:41)
[2019-01-26] MEDS: LEVOTHYROXINE SODIUM 200 MCG PO SCH (05:45)
[2019-01-26] MEDS: INSULIN -REGULAR HUMAN 50 UNIT/0.5 ML ML SQ SCH ×2 (07:30→11:30)
[2019-01-26] MEDS: BUMETANIDE 2 MG PO SCH (08:41)
[2019-01-26] MEDS: FOLIC ACID 1 MG TABLET PO SCH (08:44)
[2019-01-26] MEDS: CLOPIDOGREL 75 MG TABLET PO SCH (08:44)
[2019-01-26] MEDS: MULTIVIT W/ MINERAL TAB PO SCH (08:44)
[2019-01-26] MEDS: ASPIRIN EC 81 MG TAB PO SCH (09:00)
[2019-01-26] MEDS: INSULIN GLARGINE 100 UNITS/ML SQ SCH (12:30)
[2019-01-26 12:36] VITALS: BP 129/70; TEMP 98
--- NOTE | 2019-01-27 18:36 | DS ---
Date of Discharge: 01/26/2019 Disposition: Discharged to go to inpatient rehab. Physical Examination: HEENT: Unremarkable. Lungs: Clear to auscultation. Heart: Sounds normal. Abdomen: Soft. Bowel sounds normal. No guarding, rigidity, tenderness, distention. Extremities: No leg edema. Discharge Medication/instruction: Continue all current medications and see copy of transfer order fo r details. Hospital Course: A very pleasant 88-year-old male patient admitted to the hospital after he came int o emergency room with complaints of feeling weak, dizzy, nausea, and falling down. Please see dictat ed H and P for more information. After patient was evaluated in the emergency room, his CAT scan of the brain was negative and I saw him in the emergency room. I was concerned about possibility of str yina on the basis of his symptoms, even though CAT scan was negative. Details were discussed with the patient and his daughter. The patient was admitted to the hospital and day after admission, the pat ient had an MRI done of the brain and MRI did reveal presence of acute known hemorrhagic stroke. Dr. Brewster was consulted from Neurology Service. The patient was already taking aspirin at home on a daily basis and Dr. Brewster recommended to add Plavix and folic acid, and this was added for him. P hysical Therapy was consulted. He did not have any focal deficit, but had dizziness and blurred and double vision. His blurred and double vision problem has almost resolved. He has significant genera lized weakness and mobility problem. Physical Therapy was consulted. Carotid Doppler showed bilater al carotid artery plaquing, but no evidence of hemodynamically significant stenotic lesion. The godfrey ent has very labile diabetes and uncontrolled diabetes, so during this hospitalization, we have given him insulin regular per sliding scale, and we are making adjustment on his long-acting insulin almos t on a day-to-day basis on basis of his blood sugar. At least what we have seen now during this hosp italization with the adjustment that we are making, he is not having hypoglycemia like what he had be fore. We have increased his morning dose of long-acting insulin over period of this hospitalization and will continue to make that adjustment. Nighttime dose of long-acting insulin is 15 units. He quinones s required IV insulin almost on a daily basis either once or more than once a day to try to control h is blood sugar. We will continue to manage his diabetes aggressively as best as we can with IV and s ubcutaneous insulin, and other medications will be continued on rehab floor, and I will continue to f ollow him regularly. Final Diagnoses: 1.Stroke. 2.Diabetes mellitus, type 2, uncontrolled. 3.Chronic kidney disease stage 4. 4.Coronary artery disease. 5.Hypertension. 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 7.Hyperlipidemia. 8.Hypothyroidism. 9.Diverticulosis. 10.Benign prostatic hypertrophy. Laboratory Data: Chest x-ray was negative for any acute changes. White count 9.4 when he first came in, his hemoglobin 12.1, platelets 192, sodium 134, potassium 3.9, chloride 94, bicarb 31, BUN 72, c reatinine 3. Liver function tests unremarkable. AUNG/MODL Voice ID: [id number] Report ID: [id number]
== END 2019-01-26 13:25 | DRG 65 ==
LOC: ER 12:42 → OBSVTOIN 15:51 → INTOOBSV 15:51 → ERHOLD 15:51 → 4TH 16:43 → OBSVTOIN 01-21 12:19
PROVIDERS: ADMIT Internal Medicine; ATTEND Internal Medicine
DX: I63.9 Cerebral infarction, unspecified (principal); N18.4 Chronic kidney disease, stage 4 (severe); E11.65 Type 2 diabetes mellitus with hyperglycemia; Z79.4 Long term (current) use of insulin; Z79.84 Long term (current) use of oral hypoglycemic drugs; I12.9 Hypertensive chronic kidney disease with stage 1 through stage 4 chronic kidney disease, or unspecified chronic kidney disease; E11.22 Type 2 diabetes mellitus with diabetic chronic kidney disease; I25.10 Atherosclerotic heart disease of native coronary artery without angina pectoris; D63.1 Anemia in chronic kidney disease; E78.5 Hyperlipidemia, unspecified; E03.9 Hypothyroidism, unspecified; K57.90 Diverticulosis of intestine, part unspecified, without perforation or abscess without bleeding; N40.0 Benign prostatic hyperplasia without lower urinary tract symptoms; I25.2 Old myocardial infarction; H53.2 Diplopia; R26.0 Ataxic gait; S50.12XA Contusion of left forearm, initial encounter; S50.11XA Contusion of right forearm, initial encounter; W01.0XXA Fall on same level from slipping, tripping and stumbling without subsequent striking against object, initial encounter; Y93.01 Activity, walking, marching and hiking; Y92.013 Bedroom of single-family (private) house as the place of occurrence of the external cause
CPT/HCPCS: 36415; 70450; 70551; 71045; 72125; 80048; 80053; 80061; 81003; 81015; 82947; 82962; 85025; 93880; 97112; 97116; 97163; 97166; 97530; 97542; 99285; G0378; J1650

== ENCOUNTER 2019-01-26 09:50 | Inpatient (IN) | payer OTHER ==
[2019-01-26] MEDS: ASPIRIN EC 81 MG TAB PO SCH (08:00)
--- NOTE | 2019-01-26 10:31 | R.PREADM ---
SCREENING DATE AND TIME 01/26/2019 09:58 (MEDICATION SPECIALIST) ANTICIPATED REHAB ADMISSION DATE 01/28/2019 REFERRING FACILITY [facility] REFERRAL DATE AND TIME 01/26/2019 09:58 (MEDICATION SPECIALIST) REFERRAL ROOM# 401 ACUTE ADMIT DATE 01/21/2019 Previous Rehabilitation(s): No. ACUTE CHIEF TECHNICIAN/DC PATIENT CARE TECHNICIAN INSTRUCTOR Rafaela Lopez REFERRING PHYSICIAN [place] REHAB FACILITY [facility] CLINICAL LIAISON Anand Arteaga PHYSICIAN REVIEWER Dr. Sabino Brewster M.D. [facility] [id number] [id number] NAME ALISSON PEREA AD[address]ESS [address] [facility] [id number] DATE OF 1930 AGE 88 SSN# [id number] GENDER male MARITAL STATUS RACE white ADMIT FROM 02 - [facility] PRE-HOSPITAL LIVING SETTING 01 - Home (private home/apt. board/care, assisted living, detention, transitional living) HOME TYPE AND DETAILS Type of home: single family house # of steps within the residence: 0 # of levels in the residence: 1 # of steps to enter the residence: 1 PRE-HOSPITAL LIVING WITH Family/Relatives FAMILY SUPPORT Yes PRIMARY FAMILY CONTACT NAME FREDDY PEREA PRIMARY FAMILY CONTACT PHONE PRIMARY FAMILY CONTACT RELATIONSHIP Daughter PHONE PRIMARY FAMILY CONTACT ON ADM.? no IS PRIMARY FAMILY CONTACT AUTH. REP.? no 1ST EMERGENCY CONTACT FREDDY PEREA 1ST CONTACT PHONE 1ST CONTACT RELATIONSHIP Daughter PHONE 1ST CONTACT ON ADM. no IS 1ST CONTACT AUTH. REP.? no PHONE 2ND CONTACT ON ADM.? no PATIENT EMPLOYMENT STATUS Retired (for age) PATIENT EMPLOYER No Employer PAYOR INFORMATION: 1ST PAYOR NAME Sivakumar ALVARADO 1ST PAYOR PHONE [phone] 1ST PAYOR POLICY ID [id number] INJURY/ILLNESS DUE TO ACCIDENT? No ANOTHER CONSTITUTION PARTY RESPONSIBLE? 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 is a 88 yo Right-handed white male. On 01/21/2019 Pt. presented to [facility] with sudden onset of right-side weakn ess. On 01/21/2019 he was admitted to [facility] with diagnosis Acute left inferior cerebellar infarct. His impairment category is Stroke 01 - Right Body (Left Brain) (01.2). Pre-morbidly, Pt. was independent/mod-I in Self-Care, Locomotion, Sphincter Control, Transfers Contro l, Communication, and Social Cognition; and he had good Sphincter Control. Currently, he has deficits of Balance, Self-Care, Locomotion, Endurance, Safety Awareness, and Transf ers Control. Pt. is now referred to [facility] for acute in-patient rehabilitation in order to maximize patient's functional independence in activities of daily living, strength, ROM, and mobi lity. Patient has realistic goal of being discharged at assistance level 6-Harlan to reside at Home with Fam es/Relatives. Alisson Perea is an 88 year old male that lives in a single bairon home with 1 step threshold. Patient is independen t with basic ADL but had help meals, medication management, laundry and housekeeping. On 01/21/2019, he developed weakness an d blurring of vision and was admitted to [facility] and treated. He is now medically stable but in need of 24-hour nursing, doctor supervision and oversite participate in 3hours of therapy a day/15 hours per week and receive care with an intensive interdisciplinary approach. 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) PAST SURGICAL HISTORY: Cataract Surgery TONSILLECTOMY MEDICATION ALLERGIES: No Known Drug Allergies (NKDA) ENVIRONMENTAL ALLERGIES: None Known - Substance Allergies None Known - Other Allergies None Known CODE STATUS: Full code WEIGHT/HEIGHT/BMI: WEIGHT 241 lbs HEIGHT 5' 11" BMI 33.6 DIET: - Diet Type Regular - Diet - Solid Texture Regular - Diet - Liquid Texture Regular - Tube Feed N/A REVIEW OF SYSTEMS: - Gen Alert and awake Lying in bed No apparent distress Oriented to: person, time, and place - Vital Signs Temperature: 97.6 F SBP/DBP: 140/61 Pulse: 58 Resp: 16 Vital signs stable, afebrile - CVS RRR VITAL SIGNS Temperature: 97.6 F SBP/DBP: 140/61 Pulse: 58 Resp: 16 Vital signs stable, afebrile CURRENT SPHINCTER CONTROL: Pre-hospital bladder status: continent # of bladder accidents in the last 7 days prior to screenin Pre-hospital bowel status: continent # of bowel accidents in the last 7 days prior to screenin Last Bowel Movement Date: 01/26/2019 DETAILED CURRENT FUNCTIONAL STATUS: - Bladder accident frequency: Ind - No accidents in the past 7 days - Bowel accident frequency: Ind - No accidents in the past 7 days - Walking score based on distance walked: 0(N/A) - Wheelchair score based on distance traveled: 0(N/A) FUNCTIONAL STATUS: - Self-Care A. Eating Ind sup B. Grooming Ind sup C. Bathing Ind Erinn D. Dressing - Upper Ind modA E. Dressing - Lower Ind modA F. Toileting Ind Erinn - Sphincter Control G: Bladder control Ind Ind H: Bowel control Ind Ind - Transfers Control I. Bed/Chair/Wheelchair Ind Erinn J. Toilet Ind Erinn K. Tub/Shower Ind ADNO - Locomotion L. Walk/Wheelchair (C) Ind modA L. Walk/Wheelchair (W) Ind modA M. Stairs Ind ADNO - Communication N. Comprehension (B) Ind Harlan O. Expression (B) Ind Harlan - Social Cognition P. Social Interaction Ind Harlan Q. Problem Solving Ind Harlan R. Memory Ind Harlan - Endurance Fair - Balance Fair - Safety Awareness Fair CURRENT FUNC. DEFICITS: Balance, Self-Care, Locomotion, Endurance, Safety Awareness, and Transfers Control THERAPY NOTES FROM ACUTE CARE: Attached. SPECIAL NEEDS: - Safety Concerns Skin breakdown precautions needed due to skin breakdown risk PRECAUTIONS: - Weight Bearing Precaution WBAT right LE PATIENT NEEDS ACTIVE AND ONGOING THERAPEUTIC INTERVENTION OF MULTIPLE THERAPY DISCIPLINES, INCLUDING: - Occupational Therapy Evaluate and Treat. Visual Perceptual Training. Cognitive Retraining. - Speech Therapy Cognitive Training. Memory Strategies. Speech Intelligibility Training. Expressive Language Skills. R eceptive Language Skills. - Physical Therapy Evaluate and Treat. PATIENT NEEDS CLOSE MEDICAL SUPERVISION BY A REHABILITATION PHYSICIAN FOR: Bowel and Bladder Management Coordination of Treatment Team Diabetes Management Medical and Co-Morbidity Management Pain Management DVT Management PATIENT REQUIRES 24X7 REHAB NURSING FOR MEDICAL AND FUNCTIONAL MGT. OF THE FOLLOWING DEFICITS: ADL's Ambulation Bowel and Bladder Management Cognition Communication Disease Management Medication Management Patient/Family Education Providing Safe Environment Transfers Pain Management PATIENT REQUIRES INTENSIVE, COORDINATED INTERDISCIPLINARY APPROACH TO REHAB: Arranging Home Equipment/Services Discharge Planning Family Intervention/Training Payroll Lead/Case Management PATIENT REHAB POTENTIAL: Expected level of measurable improvement will be of a practical value to patient's functional capacit y or adaptations to impairments Has a viable Discharge Plan Medically appropriate; condition is sufficiently stable to participate in intensive rehab program Patient is able and expected to receive 3 hours of individualized therapy daily on at least 5 of ever y 7 days Patient's prognosis for significant practical improvement within a reasonable period of time appears Good DISCHARGE PLAN: - Estimated Length of Stay (days) 17. - Consensus on plan Discharge plan has been discussed with primary caregiver. Patient/Family is in agreement with the zack n. Primary caregiver is in agreement with the plan. - Patient/Family Goals Return home with assistance. - Planned Living Setting Upon Discharge Home, to live with Family/Relatives. RECOMMENDED CARE LEVEL: IRF RECOMMENDATION DETAILS: Recommended Admission to Comprehensive Rehabilitation Program to Increase Functional [place] SCREENER'S COMPLETENESS CONFIRMATION: - Screening Confirmation The patient data collection on this preadmission screening form is finished PHYSICIANS REVIEW AND ADMISSION DETERMINATION Admit - Based on my review of the Pre-Admission Screening results, in my medical judgment and experie nce, I concur with the findings and recommend admission to [facility], as this patient requires an IRF level of care. SIGNATURE PANEL: Clinical Liaison - [electronically] signed by Anand Arteaga on 01/26/2019 at 10:22 (MEDICATION SPECIALIST) Physician Reviewer - [electronically] signed by Dr. Sabino Brewster M.D. on 01/26/2019 at 10:30 (MEDICATION SPECIALIST )
[2019-01-26] MEDS ORDERED: GLUCAGON 1 MG/VIAL IM PRN ×2 (14:20→17:24)
[2019-01-26] MEDS ORDERED: D50W 25 GM/50 ML SYRINGE IV PRN (14:20)
[2019-01-26 16:02] LABS: Urine Appearance CLEAR; Urine Bilirubin NEGATIVE (NEG); Urine Blood NEGATIVE (NEG); Urine Color YELLOW; Urine Glucose 1+ (NEG); Urine Protein TRACE (NEG); Urine Specific Gravity 1.015 (1.005-1.030); Urine Urobilinogen 0.2 mg/dL (0.2-1.0); Urine pH 5.5 (5.0-7.0)
[2019-01-26] MEDS ORDERED: INSULIN -REGULAR HUMAN 50 UNIT/0.5 ML ML SQ SCH (16:30)
[2019-01-26 16:48] LABS: Urine Bacteria NONE SEEN /HPF (NONE SEEN); Urine Culture Reflex Order NOT NEEDED; Urine RBC NONE SEEN /HPF (NONE SEEN)
--- NOTE | 2019-01-26 16:48 | FAST ---
ENCOUNTER DATE AND TIME: 01/26/2019 08:00 (WHOLESALE REPRESENTATIVE) NAME ALISSON HERNANDEZ DATE OF : 1930 DATE OF ADMISSION: 01/26/2019 13:45 (WHOLESALE REPRESENTATIVE) PHONE: AGE: 88 N# [id number] GENDER: Male ENCOUNTER PHYSICIAN: Dr. Sabino Brewster M.D. ADMISSION DIAGNOSIS: - Stroke 01 - Right Body (Left Brain) (01.2) Acute left inferior cerebellar infarct. EATING: Activity did not occur on this shift EATING - SCORE: 0-UNK GROOMING: Wash, rinse, and dry face Wash, rinse, and dry hands GROOMING - STEP 1: Does the patient require the assistance of a person or device, or need extra time when grooming? Yes. GROOMING - STEP 2: Does the patient require the assistance of a helper? Yes. GROOMING - STEP 3: How much assistance does the patient require from the helper? Only prior equipment preparation/set up from the helper GROOMING - SCORE: 5-SUP BATHING: Abdomen Buttocks Chest Left arm Left lower leg and foot Left upper leg Perineal area Right arm Right lower leg and foot Right upper leg BATHING - STEP 1: Does the patient require the assistance of a person or device, or need extra time when bathing? Yes. BATHING - STEP 2: Does the patient require the assistance of a helper? Yes. BATHING - STEP 3: How much assistance does the patient require from the helper? More than just incidental help BATHING - STEP 4: What percent of the body parts did the patient bathe WITHOUT the helper? Half or more of the body par ts BATHING - SCORE: 3-MOD DRESSING - UPPER BODY: T-shirt/pullover shirt (four steps) ARTICLES SCORE Total number of steps: 4 DRESSING - UPPER BODY - STEP 1: Does the patient require help from a person or device, or need extra time when dressing above the [address]? Yes. DRESSING - UPPER BODY - STEP 2: Does the patient require the assistance of a helper? Yes. DRESSING - UPPER BODY - STEP 3: Does the helper touch the patient while dressing? No. DRESSING - UPPER BODY - SCORE: 5-SUP DRESSING - LOWER BODY: Elastic waist pants (three steps) Sock - Left foot (one step) Sock - Right foot (one step) Underwear (three steps) ARTICLES SCORE Total number of steps: 8 DRESSING - LOWER BODY - STEP 1: Does the patient require help from a person or device, or need extra time when dressing below the [address] st? Yes. DRESSING - LOWER BODY - STEP 2: Does the patient require the assistance of a helper? Yes. DRESSING - LOWER BODY - STEP 3: Does the helper touch the patient while dressing? Yes. DRESSING - LOWER BODY - STEP 4: How many of the total steps does the patient complete on his/her own? 2 DRESSING - LOWER BODY - STEP 5: Does patient require total assistance for dressing below the waist such as the helper holding clothin g and performing basically all the activities? No. DRESSING - LOWER BODY - SCORE: 2-MAX TOILETING: TOILETING - STEP 1: Does the patient require the assistance of a person or device, or need extra time with toileting? Yes . TOILETING - STEP 2: Does the patient require the assistance of a helper? Yes. TOILETING - STEP 3: How much assistance does the patient require from the helper? Hands-on assistance from the helper TOILETING - STEP 4: Of the 3 tasks: 1) Adjusting clothing prior to use, 2) Cleansing of perineal area, 3) Adjusting clot gregor after use; How many tasks does the patient perform WITHOUT assistance of the helper? One task TOILETING - SCORE: 2-MAX BLADDER MANAGEMENT: Activity did not occur on this shift BLADDER MANAGEMENT - SCORE: 7-IND BOWEL MANAGEMENT: Activity did not occur on this shift BOWEL MANAGEMENT - SCORE: 7-IND TRANSFERS: BED, CHAIR, WHEELCHAIR: TRANSFERS: BED, CHAIR, WHEELCHAIR - STEP 1: Does the patient require assistance of a person or device, or need extra time with bed, chair, or whe elchair transfers? Yes. TRANSFERS: BED, CHAIR, WHEELCHAIR - STEP 2: Does the patient require the assistance of a helper? Yes. TRANSFERS: BED, CHAIR, WHEELCHAIR - STEP 3: How much assistance does the patient require from the helper? Steadying/guiding assistance TRANSFERS: BED, CHAIR, WHEELCHAIR - SCORE: 4-MIN TRANSFERS: TOILET: TRANSFERS: TOILET - STEP 1: Does the patient require the assistance of a person or device, or need extra time with toilet transfe rs? Yes. TRANSFERS: TOILET - STEP 2: Does the patient require the assistance of a helper? Yes. TRANSFERS: TOILET - STEP 3: How much assistance does the patient require from the helper? Patient performs half or more of the tr ansferring tasks TRANSFERS: TOILET - STEP 4: Does the patient need only incidental help such as contact guard or steadying during toilet transfer? No. Patient needs more than incidental help TRANSFERS: TOILET - SCORE: 3-MOD TRANSFERS: SHOWER: Activity did not occur on this shift TRANSFERS: SHOWER - SCORE: 0-UNK TRANSFERS: TUB: Patient requires more than one helper and/or the use of a mechanical lift is utilized TRANSFERS: TUB - SCORE: 1-DEP LOCOMOTION: WALK: Activity did not occur on this shift LOCOMOTION: WALK - SCORE: 0-UNK LOCOMOTION: WHEELCHAIR: Activity did not occur on this shift LOCOMOTION: WHEELCHAIR - SCORE: 0-UNK LOCOMOTION: STAIRS: Activity did not occur on this shift LOCOMOTION: STAIRS - SCORE: 0-UNK COMPREHENSION: COMPREHENSION: TYPE: Both COMPREHENSION - STEP 1: Does the patient require help from a person or device, or need extra time to understand complex and a bstract ideas (such as current events, finances, discharge planning, medical issues, relationships, e tc)? Yes. COMPREHENSION - STEP 2: Does the patient require help to understand questions or statements about basic needs or ideas (such as hunger, thirst, sleep, safety, daily schedule, room location, or discomfort) half or more of the t ld? No. COMPREHENSION - STEP 3: How often does the patient need help to understand directions and conversation about basic needs? 25% - 49% of the time COMPREHENSION - SCORE: 3-MOD EXPRESSION EXPRESSION: TYPE: Both EXPRESSION - STEP 1: Does the patient require help from a person or device, or need extra time expressing complex and abst ract ideas (such as current events, finances, discharge planning, medical issues, relationships, etc) ? Yes. EXPRESSION - STEP 2: Does the patient require help to express basic necessities or ideas (such as hunger, thirst, sleep, s afety, daily schedule, room location, or discomfort) half or more of the time? No. EXPRESSION - STEP 3: How often does the patient need help to express directions and conversation about basic needs? 10-24% of the time EXPRESSION - SCORE: 4-MIN SOCIAL INTERACTION: SOCIAL INTERACTION - STEP 1: Does the patient require a helper to interact with others in social and therapeutic situations? No. SOCIAL INTERACTION - STEP 2: Does the patient need extra time in social situations, OR does s/he interact with staff, other patien ts, and family members ONLY in structured environments, OR does s/he require medication for social in teraction? Yes, patient needs extra time SOCIAL INTERACTION - SCORE: 6-SINGH PROBLEM SOLVING: PROBLEM SOLVING - STEP 1: Does the patient need help from a person or device, or need extra time to solve complex problems such as managing a checking account or confronting interpersonal problems? Yes. PROBLEM SOLVING - STEP 2: Does the patient solve basic routine problems half or more of the time? No. PROBLEM SOLVING - STEP 3: Does the patient need help to solve problems all the time or is s/he unable to solve problems? No. Chao galeano can sometimes solve problems PROBLEM SOLVING - SCORE: 2-MAX MEMORY: MEMORY - STEP 1: Does the patient need help from a person or device, or need extra time to remember frequently encount ered people, daily routines, and executing requests? Yes. MEMORY - STEP 2: How often does the patient need help to remember frequently encountered people, daily routines, and e xecuting requests? 25% - 49% of the time MEMORY - SCORE: 3-MOD SIGNATURE PANEL: The following modified sections: Eating - Score, Grooming - Score, Bathing - Score, Dressing - Upper Body - Score, Dressing - Lower Body - Score, Toileting - Score, Transfers: Bed, Chair, Wheelchair - S core, Transfers: Toilet - Score, Transfers: Shower - Score, Transfers: Tub - Score, Comprehension - S core, Expression - Score, Social Interaction - Score, Problem Solving - Score, Memory - Score were [e lectronically] signed by Su Mcdonald OT on FriJan 26 2019 16:47:09 T-0600 ([facility])
[2019-01-26] MEDS ORDERED: BUMETANIDE 1 MG TABLET PO SCH (17:00)
[2019-01-26] MEDS: BUMETANIDE 1 MG TABLET PO SCH (17:02)
[2019-01-26] MEDS: METOPROLOL XL 50 MG TAB PO SCH (17:03)
[2019-01-26] MEDS: INSULIN -REGULAR HUMAN 50 UNIT/0.5 ML ML IV ONE ×2 (17:33→17:35)
[2019-01-26] MEDS ORDERED: METOPROLOL XL 50 MG TAB PO SCH (18:00)
--- NOTE | 2019-01-26 18:20 | R.HP ---
FACILITY: [facility] ENCOUNTER DATE AND TIME: 01/26/2019 18:14 (PADDED PRODUCTS FINISHER) MR#: [id number] NAME ALISSON PEREA ADDRESS: [address] [place] [address]: [place] [id number] PHONE: DATE OF : 1930 AGE: 88 SSN# [id number] GENDER: Male DEXTERITY Right-handed MARITAL STATUS RACE White PRE-HOSPITAL LIVING SETTING 01 - Home (private home/apt. board/care, assisted living, care home, transitional living) PRE-HOSPITAL LIVING WITH Family/Relatives ENCOUNTER PHYSICIAN: Dr. Sabino Brewster M.D. 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 is a 88 yo Right-handed white male. On 01/21/2019 Pt. presented to [facility] with sudden onset of right-side weakn ess. On 01/21/2019 he was admitted to [facility] with diagnosis Acute left inferior cerebellar infarct. His impairment category is Stroke 01 - Right Body (Left Brain) (01.2). Pre-morbidly, Pt. was independent/mod-I in Self-Care, Locomotion, Sphincter Control, Transfers Contro l, Communication, and Social Cognition; and he had good Sphincter Control. Currently, he has deficits of Balance, Self-Care, Locomotion, Endurance, Safety Awareness, and Transf ers Control. Pt. is now referred to [facility] for acute in-patient rehabilitation in order to maximize patient's functional independence in activities of daily living, strength, ROM, and mobi lity. Patient has realistic goal of being discharged at assistance level 6-Harlan to reside at Home with Fam es/Relatives. Alisson Perea is an 88 year old male that lives in a single bairon home with 1 step threshold. Patient is independen t with basic ADL but had help meals, medication management, laundry and housekeeping. On 01/21/2019, he developed weakness an d blurring of vision and was admitted to [facility] and treated. He is now medically stable but in need of 24-hour nursing, doctor supervision and oversite participate in 3hours of therapy a day/15 hours per week and receive care with an intensive interdisciplinary approach. 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 SOCIAL HISTORY: - Home Living Family/Relatives REVIEW OF SYSTEMS: - Gen No Chills Fatigue No Fever - Eyes No Double Vision No itchiness - ENMT No Difficulty Swallowing - CVS No Chest Discomfort No Chest Pain Fatigue No Weight Gain - Resp No Cough No Shortness of Breath - GI Continent No Abdominal Pain No Constipation No Diarrhea - Continent No Kidney Pain No Painful Urination No Urinary Urgency - MSK No Joint Pain Muscle Cramps Stiffness - Skin No Itching No Rash No Suspicious Lesions - Neuro Coordination Difficulty No Difficulty with Concentration No Memory Loss No Seizures Weakness - Psych No Anxiety No Depression No HIV Exposure No Persistent Infections No Seasonal Allergies - Endo No Cold/Heat Intolerance No Excessive Hunger No Excessive Thirst No Excessive Urination PHYSICAL EXAM - Gen Alert and awake Lying in bed No apparent distress Oriented to: person, time, and place - Skin No beakdown No abnormalities - Eyes No abnormalities - Neck No abnormalities - CVS RRR - Chest Clear - Abd + bowel sounds - GI Soft Deferred - No abnormalities - Ext No significant edema - MSK 4+/5 weakness in left upper and lower extremities. - Neuro 4/5 strength left upper and lower extremities. - Psych No abnormalities VITAL SIGNS Temperature: 98.0 F SBP/DBP: 143/65 Pulse: 72 Resp: 16 NURSING: - Shower allowing shower - Lab Results blood Sugar Check ACHS - Bladder care per protocol - Skin care per protocol PRECAUTIONS: - Weight Bearing Precaution WBAT right LE ACTIVITIES OOB only with supervision FUNCTIONAL STATUS: - Self-Care A. Eating Ind sup B. Grooming Ind sup C. Bathing Ind Erinn D. Dressing - Upper Ind modA E. Dressing - Lower Ind modA F. Toileting Ind Erinn - Sphincter Control G: Bladder control Ind Ind H: Bowel control Ind Ind - Transfers Control I. Bed/Chair/Wheelchair Ind Erinn J. Toilet Ind Erinn K. Tub/Shower Ind ADNO - Locomotion L. Walk/Wheelchair (C) Ind modA L. Walk/Wheelchair (W) Ind modA M. Stairs Ind ADNO - Communication N. Comprehension (B) Ind Harlan O. Expression (B) Ind Harlan - Social Cognition P. Social Interaction Ind Harlan Q. Problem Solving Ind Harlan R. Memory Ind Harlan - Endurance Fair - Balance Fair - Safety Awareness Fair CURRENT FUNC. DEFICITS: Balance, Self-Care, Locomotion, Endurance, Safety Awareness, and Transfers Control ASSESSMENT: Pt. is a 88 yo Right-handed white male.On 01/21/2019 Pt. presented to [facility] with sudden onset of right-side weakness.On 01/21/2019 he was admitted to [facility] with diagnosis Acute left inferior cerebellar infarct.His impairment category is Stroke 01 - Right Body (Left Brain) (01.2).Pre-morbidly, Pt. was independent/mod-I in Self-Care, Locomotion, Sph incter Control, Transfers Control, Communication, and Social Cognition; and he had good Sphincter Con trol.Currently, he has deficits of Balance, Self-Care, Locomotion, Endurance, Safety Awareness, and T ransfers Control.Pt. is now referred to [facility] for acute in-patient rehabi litation in order to maximize patient's functional independence in activities of daily living, streng th, ROM, and mobility.- Rehab Goal Patient has realistic goal of being discharged at assistance level 6-Harlan to reside at Home with Fam es/Relatives. Alisson Perea is an 88 year old male that lives in a single bairon home with 1 step threshold. Patient is independen t with basic ADL but had help meals, medication management, laundry and housekeeping. On 01/21/2019, he developed weakness an d blurring of vision and was admitted to [facility] and treated. He is now medically stable but in need of 24-hour nursing, doctor supervision and oversite participate in 3hours of therapy a day/15 hours per week and receive care with an intensive interdisciplinary approach.REHAB PLAN: for Dementia, TBI, Stroke, or others - Physical Therapy Gait dysfunction - to improve, our physical therapists will perform initial evaluation of pt's status upon admission and devise an individualized program for Gait Training, and Wheel Chair mobility Inability to transfer - to improve, our physical therapists will perform initial evaluation of pt's s tatus upon admission and devise an individualized program for Bed mobility Need for home safety evaluation - to improve, our physical therapists will perform initial evaluation of pt's status upon admission and devise an individualized program for Home Evaluation Need in caregiver upon discharge - to improve, our physical therapists will perform initial evaluatio n of pt's status upon admission and devise an individualized program for Caregiver Training New precaution - to improve, our physical therapists will perform initial evaluation of pt's status u jeff admission and devise an individualized program for Patient precaution education Edema - to improve, our physical therapists will perform initial evaluation of pt's status upon admi ssion and devise an individualized program for Elevation Training, and Lymphedema Therapy Poor balance - to improve, our physical therapists will perform initial evaluation of pt's status upo n admission and devise an individualized program for Balance Training Poor endurance - to improve, our physical therapists will perform initial evaluation of pt's status u jeff admission and devise an individualized program for Endurance Training Weakness - to improve, our physical therapists will perform initial evaluation of pt's status upon ad mission and devise an individualized program for Aquatic Therapy, Neuromuscular Reeducation, and Stre ngthening Achieving independence - to improve, our physical therapists will perform initial evaluation of pt's status upon admission and devise an individualized program for Community Reintegration Activities - Occupational Therapy ADL deficits - to improve, our occupation therapists will perform initial evaluation of pt's status u jeff admission and devise an individualized program for Bathing, Bed mobility, Community Reintegration , Cooking, Dressing, Eating, Fine Motor Skills, Grooming, Homemaking, Kitchen Mobility, Laundry, Carlotta ent Education, Safety Awareness, Splinting - Positioning, Transfers(Toilet, Tub, Shower), and Wheel C hair Management Need for family day care provider - to improve, our occupation therapists will perform initial evaluation of pt's s tatus upon admission and devise an individualized program for Caregiver Training Weakness - to improve, our occupation therapists will perform initial evaluation of pt's status upon admission and devise an individualized program for Aquatic Therapy, Balance, Endurance, UE ROM, and U E strengthening MEDICAL PLAN: - Diet Type Start Regular - Diet - Liquid Texture Start Regular - Tube Feed Start N/A - Lab Results blood Sugar Check ACHS - Bladder care per protocol - Weight Bearing Precaution WBAT right LE - Skin care per protocol - Diet - Solid Texture Regular - Shower shower DISCHARGE PLAN: - Estimated Length of Stay (days) 17. - Consensus on plan Discharge plan has been discussed with primary caregiver. Patient/Family is in agreement with the zack n. Primary caregiver is in agreement with the plan. - Patient/Family Goals Return home with assistance. - Planned Living Setting Upon Discharge Home, to live with Family/Relatives. SIGNATURE PANEL: (PADDED PRODUCTS FINISHER)
--- NOTE | 2019-01-26 18:22 | PAPE ---
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 Sabino Brewster M.D. 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 PATIENT NEEDS CLOSE MEDICAL SUPERVISION BY A REHABILITATION PHYSICIAN FOR: Bowel and Bladder Management Coordination of Treatment Team Diabetes Management Medical and Co-Morbidity Management Pain Management DVT Management PATIENT REQUIRES 24X7 REHAB NURSING FOR MEDICAL AND FUNCTIONAL MGT. OF THE FOLLOWING DEFICITS: ADL's Ambulation Bowel and Bladder Management Cognition Communication Disease Management Medication Management Patient/Family Education Providing Safe Environment Transfers Pain Management PATIENT REQUIRES INTENSIVE, COORDINATED INTERDISCIPLINARY APPROACH TO REHAB: Arranging Home Equipment/Services Discharge Planning Family Intervention/Training Pill Coater/Case Management LIST OF IDENTIFIED AND POTENTIAL PROBLEMS: Alteration in leisure activities Bladder, Incontinence Blood Pressure, Hypertension/hypotension Issues Bowel, Incontinence Diabetes, Hyperglycemia/hypoglycemia Issues Infection, Actual or Potential Mobility Impaired Pain, Alteration in Comfort Self Care Deficit Skin Integrity, Actual or Potential Urinary Tract Infection (UTI), Actual or Potential RISK FOR COMPLICATIONS - Hypertension CVA. Hypotension. MN. TIA. - Osteoarthritis Falls. - CAD CHF. Cardiac Arrest. MN. Pain. INTERVENTIONS - Hypertension - Osteoarthritis Energy conservation. Exercise. Joint Protection. Medications. Pain management. - CAD 02 sats. Activity management. Medications. VS. PATIENT COULD BE AT RISK FOR COMPLICATIONS FROM ADVERSE MEDICAL CONDITIONS DUE TO HIS/HER COMORBIDITI ES AND THE RIGORS OF THE INTENSIVE REHABILLITATION PROGRAM. METHODS OR INTERVENTIONS TO AVOID COMPLIC ATIONS INCLUDE: - Deep Vein Thrombosis (DVT) Prophylaxis therapy for prevention . Sequential Compression Device (SCD). TE D Hose. - Bleeding Stroke patients assessed for lethargy or change in status. - Infection Clinical staff to assess and manage the signs and symptoms of infection including fever, redness, war mth, etc. - Urinary Tract Infection - Aspiration Clinical staff will assess and manage coughing, drooling, congestion. - Falls Patient will be evaluated for Fall Precautions and will be placed on Fall Precautions as indicated pe r protocol. - Skin Breakdown Nursing will assess skin daily using assessment tool and will place on Skin Breakdown Precautions as indicated per protocol. - Pain Clinical staff may employ non-medication methods such as massage, distraction, decrease stimulus, etc . as needed. Clinical staff will assess patient's pain level every shift per protocol to assess and e nsure pain management effectiveness. Medications will be given and the pain level re-assessed. PRELIMINARY PLAN OF CARE: - Physical Therapy Patient needs Physical Therapy for a daily minimum of 1.5 hours at least 5 out of 7 days, to improve: Mobility, Strengthening, Transfers, Stretching, ROM, Endurance, Ability to manage stairs, Gait, and Balance. - Speech Therapy Patient needs Speech Therapy for a daily minimum of 0.5 hours at least 5 out of 7 days, to improve: S wallowing, Cognition, Language Skills, and Compensatory Strategies. - Rehabilitation Nursing Patient requires 24x7 Rehabilitation Nursing for: Pain Issues, Identifying and preventing risk factor s, Monitoring and reporting current medical conditions, Assisting with ambulation and transfer, Blayne ting with all ADL-s, Teaching patients about disease process and medications, Family teaching, Provid ing safe environment, Bowel and Bladder Issues, Skin Integrity, and Medication Management. Patient needs Pill Coater and/or Case Management for: Discharge Planning, Arranging Home Equipmen t or Services, and Family Interventions. - Dietary and Nutrition Services Patient needs Dietary and Nutrition Services for: Adequate Nutrition, Nutritional Supplements, and Nu tritional Education. - Occupational Therapy Patient needs Occupational Therapy for a daily minimum of 1.5 hours at least 5 out of 7 days, to impr ove Activities of Daily Living, including: Eating, Grooming, Bathing, Dressing, Toileting, Toilet Tra nsfers, Community Reintegration, Higher functional activities, Adaptive Equipment, Splinting, Househo ld Tasks, and Other activities as determined. POTENTIAL FUNCTIONAL GOALS FOR PATIENT TO ACHIEVE BY DISCHARGE: - Safety Precaution Patient will remain free from falls or injury at time of discharge. - Bed Mobility Patient will perform bed mobility at 4-Erinn level of assistance. - Transfers Patient will complete transfers from bed to chair at 4-Erinn level of assistance. - Mobility Patient will ambulate 150 ft with 4-Erinn level of assistance with RW. PATIENT REHAB POTENTIAL Expected level of measurable improvement will be of a practical value to patient's functional capacit y or adaptations to impairments Has a viable Discharge Plan Medically appropriate; condition is sufficiently stable to participate in intensive rehab program Patient is able and expected to receive 3 hours of individualized therapy daily on at least 5 of ever y 7 days Patient's prognosis for significant practical improvement within a reasonable period of time appears Good DISCHARGE PLAN: - Estimated Length of Stay (days) 17. - Consensus on plan Discharge plan has been discussed with primary caregiver. Patient/Family is in agreement with the zack n. Primary caregiver is in agreement with the plan. - Patient/Family Goals Return home with assistance. - Planned Living Setting Upon Discharge Home, to live with Family/Relatives. CONCLUSION ON REHABILITATION NECESSITY: I have evaluated patient's pre-admission functional status and, comparing it to the patient's post-ad mission functional status now, I conclude that the pre-admission assessment was accurate. Patient's c ondition on admission supports the medical necessity of admission to IRF. It is safe to proceed with patient's therapy program. SIGNATURE PANEL: (ROPE SILICA MACHINE OPERATOR)
[2019-01-26] MEDS ORDERED: INSULIN -REGULAR HUMAN 50 UNIT/0.5 ML ML IV ONE (18:50)
[2019-01-26] MEDS ORDERED: INSULIN GLARGINE 100 UNITS/ML SQ ONE (20:11)
[2019-01-26] MEDS: INSULIN GLARGINE 100 UNITS/ML SQ SCH ×2 (20:18→20:42)
[2019-01-26] MEDS: TAMSULOSIN 0.4 MG SR CAP PO SCH (20:41)
[2019-01-26] MEDS: ENOXAPARIN 40 MG/0.4 ML SQ SCH (20:42)
[2019-01-26] MEDS: SIMVASTATIN 80 MG PO SCH (20:42)
[2019-01-26] MEDS: INSULIN -REGULAR HUMAN 50 UNIT/0.5 ML ML SQ SCH ×2 (20:44→21:00)
[2019-01-26] MEDS ORDERED: INSULIN GLARGINE 100 UNITS/ML SQ SCH (21:00)
[2019-01-26] MEDS ORDERED: TAMSULOSIN 0.4 MG SR CAP PO SCH (21:00)
[2019-01-26] MEDS ORDERED: ATORVASTATIN 40 MG TAB PO SCH (21:00)
--- NOTE | 2019-01-27 00:39 | FAST ---
SHIFT START DATE/TIME: 01/26/2019 19:00 (GREIGE GOODS MARKER) SHIFT END DATE/TIME: 01/27/2019 07:00 (GREIGE GOODS MARKER) NAME ALISSON HERNANDEZ DATE OF : 1930 DATE OF ADMISSION: 01/26/2019 13:45 (GREIGE GOODS MARKER) PHONE: AGE: 88 N# [id number] GENDER: Male ENCOUNTER PHYSICIAN: Dr. Sabino Brewster M.D. ADMISSION DIAGNOSIS: - Stroke 01 - Right Body (Left Brain) (01.2) Acute left inferior cerebellar infarct. EATING: Activity did not occur on this shift EATING - SCORE: 0-UNK GROOMING: Activity did not occur on this shift GROOMING - SCORE: 0-UNK BATHING: Activity did not occur on this shift BATHING - SCORE: 0-UNK DRESSING - UPPER BODY: Patient is not dressing in public clothing ARTICLES SCORE Total number of steps: 0 DRESSING - UPPER BODY - SCORE: 0-UNK DRESSING - LOWER BODY: Patient is not dressing in public clothing ARTICLES SCORE Total number of steps: 0 DRESSING - LOWER BODY - SCORE: 0-UNK TOILETING: TOILETING - STEP 1: Does the patient require the assistance of a person or device, or need extra time with toileting? Yes . TOILETING - STEP 2: Does the patient require the assistance of a helper? Yes. TOILETING - STEP 3: How much assistance does the patient require from the helper? Hands-on assistance from the helper TOILETING - STEP 4: Of the 3 tasks: 1) Adjusting clothing prior to use, 2) Cleansing of perineal area, 3) Adjusting clot gregor after use; How many tasks does the patient perform WITHOUT assistance of the helper? Three tasks with steadying assistance from the helper TOILETING - SCORE: 4-MIN BLADDER MANAGEMENT: BLADDER MANAGEMENT - STEP 1: Does the patient control the bladder completely and intentionally without equipment or devices or med ications, and is always continent? No. BLADDER MANAGEMENT - STEP 2: Does the patient require the assistance of a helper? Yes. BLADDER MANAGEMENT - STEP 3: How much assistance does the patient require from the helper? Only supervision, stand-by, cuing, or c oaxing BLADDER MANAGEMENT - SCORE: 5-SUP BOWEL MANAGEMENT: BOWEL MANAGEMENT - STEP 1: Does the patient control bowels completely and intentionally without equipment devices or medications AND is always continent? No. BOWEL MANAGEMENT - STEP 2: Does the patient require the assistance of a helper? No, patient requires medication for control such as stool softeners, suppositories, laxatives, enemas, or OTC medications BOWEL MANAGEMENT - SCORE: 6-SINGH TRANSFERS: BED, CHAIR, WHEELCHAIR: TRANSFERS: BED, CHAIR, WHEELCHAIR - STEP 1: Does the patient require assistance of a person or device, or need extra time with bed, chair, or whe elchair transfers? Yes. TRANSFERS: BED, CHAIR, WHEELCHAIR - STEP 2: Does the patient require the assistance of a helper? Yes. TRANSFERS: BED, CHAIR, WHEELCHAIR - STEP 3: How much assistance does the patient require from the helper? Lifting of the patient TRANSFERS: BED, CHAIR, WHEELCHAIR - STEP 4: Does the helper lift the patient ONLY up? ONLY down? Up AND Down? Up AND Down. TRANSFERS: BED, CHAIR, WHEELCHAIR - SCORE: 2-MAX TRANSFERS: TOILET: TRANSFERS: TOILET - STEP 1: Does the patient require the assistance of a person or device, or need extra time with toilet transfe rs? Yes. TRANSFERS: TOILET - STEP 2: Does the patient require the assistance of a helper? Yes. TRANSFERS: TOILET - STEP 3: How much assistance does the patient require from the helper? Patient performs half or more of the tr ansferring tasks TRANSFERS: TOILET - STEP 4: Does the patient need only incidental help such as contact guard or steadying during toilet transfer? No. Patient needs more than incidental help TRANSFERS: TOILET - SCORE: 3-MOD TRANSFERS: SHOWER: Activity did not occur on this shift TRANSFERS: SHOWER - SCORE: 0-UNK TRANSFERS: TUB: Activity did not occur on this shift TRANSFERS: TUB - SCORE: 0-UNK LOCOMOTION: WALK: Activity did not occur on this shift LOCOMOTION: WALK - SCORE: 0-UNK LOCOMOTION: WHEELCHAIR: Activity did not occur on this shift LOCOMOTION: WHEELCHAIR - SCORE: 0-UNK COMPREHENSION: COMPREHENSION: TYPE: Both COMPREHENSION - STEP 1: Does the patient require help from a person or device, or need extra time to understand complex and a bstract ideas (such as current events, finances, discharge planning, medical issues, relationships, e tc)? Yes. COMPREHENSION - STEP 2: Does the patient require help to understand questions or statements about basic needs or ideas (such as hunger, thirst, sleep, safety, daily schedule, room location, or discomfort) half or more of the t ld? No. COMPREHENSION - STEP 3: How often does the patient need help to understand directions and conversation about basic needs? 10% - 24% of the time COMPREHENSION - SCORE: 4-MIN EXPRESSION EXPRESSION: TYPE: Both EXPRESSION - STEP 1: Does the patient require help from a person or device, or need extra time expressing complex and abst ract ideas (such as current events, finances, discharge planning, medical issues, relationships, etc) ? No. EXPRESSION - STEP 2: Does the patient need extra time, require an assistive device (such as augmentive communication syste m or a communication board), OR does s/he have mild difficulty expressing complex and abstract ideas (including mild dysarthria or mild word-find problems)? Yes. EXPRESSION - SCORE: 6-SINGH SOCIAL INTERACTION: SOCIAL INTERACTION - STEP 1: Does the patient require a helper to interact with others in social and therapeutic situations? No. SOCIAL INTERACTION - STEP 2: Does the patient need extra time in social situations, OR does s/he interact with staff, other patien ts, and family members ONLY in structured environments, OR does s/he require medication for social in teraction? Yes, patient needs extra time SOCIAL INTERACTION - SCORE: 6-SINGH PROBLEM SOLVING: PROBLEM SOLVING - STEP 1: Does the patient need help from a person or device, or need extra time to solve complex problems such as managing a checking account or confronting interpersonal problems? Yes. PROBLEM SOLVING - STEP 2: Does the patient solve basic routine problems half or more of the time? Yes. PROBLEM SOLVING - STEP 3: How often does the patient need help to solve basic routine problems? 10%-24% of the time PROBLEM SOLVING - SCORE: 4-MIN MEMORY: MEMORY - STEP 1: Does the patient need help from a person or device, or need extra time to remember frequently encount ered people, daily routines, and executing requests? No. MEMORY - STEP 2: Does the patient have slight difficulty recognizing frequently encountered people, daily routines, or executing requests without the need for repetition or using self-initiated or environmental cues to remember? Yes. MEMORY - SCORE: 6-SINGH SIGNATURE PANEL: The following modified sections: Eating - Score, Grooming - Score, Dressing - Upper Body - Score, Ben ssing - Lower Body - Score, Toileting - Score, Bladder Management - Score, Bowel Management - Score, Transfers: Bed, Chair, Wheelchair - Score, Transfers: Toilet - Score, Transfers: Shower - Score, Aquino sfers: Tub - Score, Locomotion: Walk - Score, Locomotion: Wheelchair - Score, Comprehension - Score, Expression - Score, Social Interaction - Score, Problem Solving - Score, Memory - Score were [electro nically] signed by Margi Collier CNA on FriJan 27 2019 00:39:13 GMT-0600 (Central Standard Time)
[2019-01-27] MEDS: METOPROLOL XL 50 MG TAB PO SCH ×2 (05:18→17:42)
[2019-01-27] MEDS ORDERED: LEVOTHYROXINE SOD 0.088 MG TAB PO SCH (06:30)
[2019-01-27] MEDS ORDERED: LEVOTHYROXINE SOD 0.1 MG TAB PO SCH ×2 (06:30)
[2019-01-27] MEDS: INSULIN -REGULAR HUMAN 50 UNIT/0.5 ML ML SQ SCH ×4 (06:40→21:23)
[2019-01-27] MEDS: D50W 25 GM/50 ML SYRINGE IV PRN (06:45)
[2019-01-27 07:03] LABS: Absolute Lymphocytes (CBC) 2.7 K/uL (0.7-4.9); Absolute Monocytes 1.3 K/uL (0.1-1.3); Absolute Neutrophil 5.6 K/uL (1.8-8.0); Basophils % 0.7 % (0-1.3); Eosinophils % 4.3 % (0-4.4); Lymphocytes % 26.9 % (15.3-44.8); MPV 11.5 fL (7.6-11.3); Monocytes % 12.8 % (3.3-12.3); RBC Red Blood Cell Count 4.41 M/uL (4.33-5.43)
[2019-01-27] MEDS: LEVOTHYROXINE 200 MCG PO SCH (07:35)
[2019-01-27] MEDS: LEVOTHYROXINE 88 MCG PO SCH (07:35)
[2019-01-27 07:42] LABS: Albumin 3.2 g/dL (3.4-5.0); Magnesium 2.3 mg/dL (1.8-2.4); Prealbumin 27.6 mg/dL (20-40)
[2019-01-27 07:44] LABS: Potassium 2.9 mmol/L (3.5-5.1)
[2019-01-27] MEDS ORDERED: INSULIN GLARGINE 100 UNITS/ML SQ SCH ×3 (08:00→21:00)
[2019-01-27] MEDS ORDERED: ASPIRIN EC 81 MG TAB PO SCH (08:00)
[2019-01-27] MEDS ORDERED: ISOSORBIDE MONO SR 60 MG TAB PO SCH (08:00)
[2019-01-27] MEDS: ASPIRIN EC 81 MG TAB PO SCH (09:26)
[2019-01-27] MEDS: BUMETANIDE 1 MG TABLET PO SCH ×2 (09:27→17:31)
[2019-01-27] MEDS: ISOSORBIDE MONO SR 60 MG TAB PO SCH (09:27)
[2019-01-27] MEDS: MULTIVITAMIN TAB PO SCH (09:30)
[2019-01-27] MEDS ORDERED: D50W 25 GM/50 ML SYRINGE IV PRN ×2 (09:55→09:57)
[2019-01-27] MEDS ORDERED: GLUCAGON 1 MG/VIAL IM PRN ×2 (09:55→09:57)
[2019-01-27] MEDS: INSULIN GLARGINE 100 UNITS/ML SQ SCH (10:12)
[2019-01-27] MEDS: CLOPIDOGREL 75 MG TABLET PO SCH (10:13)
[2019-01-27] MEDS: FOLIC ACID 1 MG TABLET PO SCH (10:13)
[2019-01-27] MEDS ORDERED: POTASSIUM CL SA 10 MEQ TAB PO ONE (12:34)
--- NOTE | 2019-01-27 15:15 | FAST ---
ENCOUNTER DATE AND TIME: 01/27/2019 08:00 (ETHNIC ORIGINS TEACHER) NAME ALISSON HERNANDEZ DATE OF : 1930 DATE OF ADMISSION: 01/26/2019 13:45 (ETHNIC ORIGINS TEACHER) PHONE: AGE: 88 N# [id number] GENDER: Male ENCOUNTER PHYSICIAN: Dr. Sabino Brewster M.D. ADMISSION DIAGNOSIS: - Stroke 01 - Right Body (Left Brain) (01.2) Acute left inferior cerebellar infarct. EATING: Activity did not occur on this shift EATING - SCORE: 0-UNK GROOMING: Activity did not occur on this shift GROOMING - SCORE: 0-UNK BATHING: Activity did not occur on this shift BATHING - SCORE: 0-UNK DRESSING - UPPER BODY: Activity did not occur on this shift Patient is not dressing in public clothing ARTICLES SCORE Total number of steps: 0 DRESSING - UPPER BODY - SCORE: 0-UNK DRESSING - LOWER BODY: Activity did not occur on this shift Patient is not dressing in public clothing ARTICLES SCORE Total number of steps: 0 DRESSING - LOWER BODY - SCORE: 0-UNK TOILETING: Activity did not occur on this shift TOILETING - SCORE: 0-UNK BLADDER MANAGEMENT: Activity did not occur on this shift BLADDER MANAGEMENT - SCORE: 7-IND BOWEL MANAGEMENT: Activity did not occur on this shift BOWEL MANAGEMENT - SCORE: 7-IND TRANSFERS: BED, CHAIR, WHEELCHAIR: TRANSFERS: BED, CHAIR, WHEELCHAIR - STEP 1: Does the patient require assistance of a person or device, or need extra time with bed, chair, or whe elchair transfers? Yes. TRANSFERS: BED, CHAIR, WHEELCHAIR - STEP 2: Does the patient require the assistance of a helper? Yes. TRANSFERS: BED, CHAIR, WHEELCHAIR - STEP 3: How much assistance does the patient require from the helper? Lifting of the patient TRANSFERS: BED, CHAIR, WHEELCHAIR - STEP 4: Does the helper lift the patient ONLY up? ONLY down? Up AND Down? ONLY down. TRANSFERS: BED, CHAIR, WHEELCHAIR - SCORE: 3-MOD TRANSFERS: TOILET: Activity did not occur on this shift TRANSFERS: TOILET - SCORE: 0-UNK TRANSFERS: SHOWER: Activity did not occur on this shift TRANSFERS: SHOWER - SCORE: 0-UNK TRANSFERS: TUB: Activity did not occur on this shift TRANSFERS: TUB - SCORE: 0-UNK LOCOMOTION: WALK: Patient walks less than 50 feet LOCOMOTION: WALK - SCORE: 1-DEP LOCOMOTION: WHEELCHAIR: LOCOMOTION: WHEELCHAIR - STEP 1: Does the patient need help to go 150 feet in a wheelchair? Yes. LOCOMOTION: WHEELCHAIR - STEP 2: How much assistance does the patient need from the helper? Patient goes less than 150 feet - but more than 50 feet - with the assistance of only one helper LOCOMOTION: WHEELCHAIR - SCORE: 2-MAX LOCOMOTION: STAIRS: Activity did not occur on this shift LOCOMOTION: STAIRS - SCORE: 0-UNK COMPREHENSION: COMPREHENSION - SCORE: 0-UNK EXPRESSION EXPRESSION - SCORE: 0-UNK SOCIAL INTERACTION: SOCIAL INTERACTION - SCORE: 0-UNK PROBLEM SOLVING: PROBLEM SOLVING - SCORE: 0-UNK MEMORY: MEMORY - SCORE: 0-UNK SIGNATURE PANEL: The following modified sections: Transfers: Bed, Chair, Wheelchair - Score, Transfers: Toilet - Score , Locomotion: Walk - Score, Locomotion: Wheelchair - Score, Locomotion: Stairs - Score were [electron ically] signed by Zenon Javier PT on FriJan 27 2019 15:14:32 GMT-0600 (Central Standard Time)
--- NOTE | 2019-01-27 15:49 | FAST ---
SHIFT START DATE/TIME: 01/27/2019 07:00 (PLASTERER STUCCO) SHIFT END DATE/TIME: 01/27/2019 19:00 (PLASTERER STUCCO) NAME ALISSON HERNANDEZ DATE OF : 1930 DATE OF ADMISSION: 01/26/2019 13:45 (PLASTERER STUCCO) PHONE: AGE: 88 N# [id number] GENDER: Male ENCOUNTER PHYSICIAN: Dr. Sabino Brewster M.D. ADMISSION DIAGNOSIS: - Stroke 01 - Right Body (Left Brain) (01.2) Acute left inferior cerebellar infarct. EATING: EATING - STEP 1: Does the patient require the assistance of a person or device, or need extra time when eating? Yes. EATING - STEP 2: Does the patient require the assistance of a helper? Yes. EATING - STEP 3: Does the patient perform half or more of the eating tasks? Yes. EATING - STEP 4: Does the patient need only supervision, cuing, coaxing OR help to apply an orthosis OR help to cut fo od, open containers, pour liquids, or butter bread? Yes. EATING - SCORE: 5-SUP GROOMING: Activity did not occur on this shift GROOMING - SCORE: 0-UNK BATHING: Activity did not occur on this shift BATHING - SCORE: 0-UNK DRESSING - UPPER BODY: Activity did not occur on this shift ARTICLES SCORE Total number of steps: 0 DRESSING - UPPER BODY - SCORE: 0-UNK DRESSING - LOWER BODY: Activity did not occur on this shift ARTICLES SCORE Total number of steps: 0 DRESSING - LOWER BODY - SCORE: 0-UNK TOILETING: TOILETING - STEP 1: Does the patient require the assistance of a person or device, or need extra time with toileting? Yes . TOILETING - STEP 2: Does the patient require the assistance of a helper? Yes. TOILETING - STEP 3: How much assistance does the patient require from the helper? Hands-on assistance from the helper TOILETING - STEP 4: Of the 3 tasks: 1) Adjusting clothing prior to use, 2) Cleansing of perineal area, 3) Adjusting clot gregor after use; How many tasks does the patient perform WITHOUT assistance of the helper? Two tasks TOILETING - SCORE: 3-MOD BLADDER MANAGEMENT: BLADDER MANAGEMENT - STEP 1: Does the patient control the bladder completely and intentionally without equipment or devices or med ications, and is always continent? No. BLADDER MANAGEMENT - STEP 2: Does the patient require the assistance of a helper? No, patient requires and independently uses an a ssistive device, such as a urinal, bedpan, bedside commode, catheter, absorbent pad, or collecting de vice BLADDER MANAGEMENT - SCORE: 6-SINGH BOWEL MANAGEMENT: Activity did not occur on this shift BOWEL MANAGEMENT - SCORE: 7-IND TRANSFERS: BED, CHAIR, WHEELCHAIR: TRANSFERS: BED, CHAIR, WHEELCHAIR - STEP 1: Does the patient require assistance of a person or device, or need extra time with bed, chair, or whe elchair transfers? Yes. TRANSFERS: BED, CHAIR, WHEELCHAIR - STEP 2: Does the patient require the assistance of a helper? Yes. TRANSFERS: BED, CHAIR, WHEELCHAIR - STEP 3: How much assistance does the patient require from the helper? Lifting of the patient TRANSFERS: BED, CHAIR, WHEELCHAIR - STEP 4: Does the helper lift the patient ONLY up? ONLY down? Up AND Down? Up AND Down. TRANSFERS: BED, CHAIR, WHEELCHAIR - SCORE: 2-MAX TRANSFERS: TOILET: TRANSFERS: TOILET - STEP 1: Does the patient require the assistance of a person or device, or need extra time with toilet transfe rs? Yes. TRANSFERS: TOILET - STEP 2: Does the patient require the assistance of a helper? Yes. TRANSFERS: TOILET - STEP 3: How much assistance does the patient require from the helper? Patient performs less than half of the transferring tasks TRANSFERS: TOILET - STEP 4: Does the patient require total assistance for the toilet transfer such as the helper doing basically all the lifting? No. TRANSFERS: TOILET - SCORE: 2-MAX TRANSFERS: SHOWER: Activity did not occur on this shift TRANSFERS: SHOWER - SCORE: 0-UNK TRANSFERS: TUB: Activity did not occur on this shift TRANSFERS: TUB - SCORE: 0-UNK LOCOMOTION: WALK: Activity did not occur on this shift LOCOMOTION: WALK - SCORE: 0-UNK LOCOMOTION: WHEELCHAIR: Activity did not occur on this shift LOCOMOTION: WHEELCHAIR - SCORE: 0-UNK COMPREHENSION: COMPREHENSION: TYPE: Both COMPREHENSION - STEP 1: Does the patient require help from a person or device, or need extra time to understand complex and a bstract ideas (such as current events, finances, discharge planning, medical issues, relationships, e tc)? Yes. COMPREHENSION - STEP 2: Does the patient require help to understand questions or statements about basic needs or ideas (such as hunger, thirst, sleep, safety, daily schedule, room location, or discomfort) half or more of the t ld? No. COMPREHENSION - STEP 3: How often does the patient need help to understand directions and conversation about basic needs? 10% - 24% of the time COMPREHENSION - SCORE: 4-MIN EXPRESSION EXPRESSION: TYPE: Both EXPRESSION - STEP 1: Does the patient require help from a person or device, or need extra time expressing complex and abst ract ideas (such as current events, finances, discharge planning, medical issues, relationships, etc) ? Yes. EXPRESSION - STEP 2: Does the patient require help to express basic necessities or ideas (such as hunger, thirst, sleep, s afety, daily schedule, room location, or discomfort) half or more of the time? No. EXPRESSION - STEP 3: How often does the patient need help to express directions and conversation about basic needs? Less t brady 10% of the time EXPRESSION - SCORE: 5-SUP SOCIAL INTERACTION: SOCIAL INTERACTION - STEP 1: Does the patient require a helper to interact with others in social and therapeutic situations? No. SOCIAL INTERACTION - STEP 2: Does the patient need extra time in social situations, OR does s/he interact with staff, other patien ts, and family members ONLY in structured environments, OR does s/he require medication for social in teraction? Yes, patient needs extra time SOCIAL INTERACTION - SCORE: 6-SINGH PROBLEM SOLVING: PROBLEM SOLVING - STEP 1: Does the patient need help from a person or device, or need extra time to solve complex problems such as managing a checking account or confronting interpersonal problems? No. PROBLEM SOLVING - STEP 2: Does the patient require extra time to make decisions or solve problems, OR does s/he have slight dif ficulty reading, initiating, or self-correcting in unfamiliar situations? Yes, patient needs extra ti me. PROBLEM SOLVING - SCORE: 6-SINGH MEMORY: MEMORY - STEP 1: Does the patient need help from a person or device, or need extra time to remember frequently encount ered people, daily routines, and executing requests? No. MEMORY - STEP 2: Does the patient have slight difficulty recognizing frequently encountered people, daily routines, or executing requests without the need for repetition or using self-initiated or environmental cues to remember? Yes. MEMORY - SCORE: 6-SINGH SIGNATURE PANEL: The following modified sections: Eating - Score, Grooming - Score, Bathing - Score, Dressing - Upper Body - Score, Dressing - Lower Body - Score, Toileting - Score, Bladder Management - Score, Bowel Man agement - Score, Transfers: Bed, Chair, Wheelchair - Score, Transfers: Toilet - Score, Transfers: Iris wer - Score, Transfers: Tub - Score, Locomotion: Walk - Score, Locomotion: Wheelchair - Score, Compre hension - Score, Expression - Score, Social Interaction - Score, Problem Solving - Score, Memory - Sc ore were [electronically] signed by Barrera Liang on FriJan 27 2019 15:49:04 GMT-0600 (Central Standard Time)
--- NOTE | 2019-01-27 18:06 | R.PN ---
ENCOUNTER DATE AND TIME: 01/27/2019 18:02 (FISH DRIER) NAME ALISSON HERNANDEZ DATE OF : 1930 DATE OF ADMISSION: 01/26/2019 13:45 (FISH DRIER) Acute left inferior cerebellar infarctCHIEF COMPLAINT: Left cerebellar stroke SUBJECTIVE: Pt denied any Shortness of Breath. Pt denied any depression. Wheelchair mobility done with standby assistance for 280'. VITAL SIGNS Temperature: 98.0 F SBP/DBP: 136/63 Pulse: 72 Resp: 16 MEDICATION ALLERGIES: No Known Drug Allergies (NKDA) ENVIRONMENTAL ALLERGIES: None Known - Substance Allergies None Known - Other Allergies None Known NURSING: - Shower allowing shower - Lab Results blood Sugar Check ACHS - Bladder care per protocol - Skin care per protocol PRECAUTIONS: - Weight Bearing Precaution WBAT right LE ACTIVITIES OOB only with supervision THERAPIES: - Occupational Therapy Evaluate and Treat. Visual Perceptual Training. Cognitive Retraining. - Speech Therapy Cognitive Training. Memory Strategies. Speech Intelligibility Training. Expressive Language Skills. R eceptive Language Skills. - Physical Therapy Evaluate and Treat. PHYSICAL EXAM - Gen Alert and awake Lying in bed No apparent distress Oriented to: person, time, and place - Skin No beakdown No abnormalities - Eyes No abnormalities - Neck No abnormalities - CVS RRR - Chest Clear - Abd + bowel sounds - GI Soft Deferred - No abnormalities - Ext No significant edema - MSK 4+/5 weakness in left upper and lower extremities. - Neuro 4/5 strength left upper and lower extremities. - Psych No abnormalities ASSESSMENT: Pt. is a 88 yo Right-handed white male.On 01/21/2019 Pt. presented to [facility] with sudden onset of right-side weakness.On 01/21/2019 he was admitted to [facility] with diagnosis Acute left inferior cerebellar infarct.His impairment category is Stroke 01 - Right Body (Left Brain) (01.2).Pre-morbidly, Pt. was independent/mod-I in Self-Care, Locomotion, Sph incter Control, Transfers Control, Communication, and Social Cognition; and he had good Sphincter Con trol.Currently, he has deficits of Balance, Self-Care, Locomotion, Endurance, Safety Awareness, and T ransfers Control.Pt. is now referred to [facility] for acute in-patient rehabi litation in order to maximize patient's functional independence in activities of daily living, streng th, ROM, and mobility.- Rehab Goal Patient has realistic goal of being discharged at assistance level 6-Harlan to reside at Home with Fam es/Relatives. MDM/PLAN: - Physical Therapy Gait dysfunction - to improve, our physical therapists will perform initial evaluation of pt's statu s upon admission and devise an individualized program for Gait Training, and Wheel Chair mobility Inability to transfer - to improve, our physical therapists will perform initial evaluation of pt's status upon admission and devise an individualized program for Bed mobility Need for home safety evaluation - to improve, our physical therapists will perform initial evaluatio n of pt's status upon admission and devise an individualized program for Home Evaluation Need in caregiver upon discharge - to improve, our physical therapists will perform initial evaluati on of pt's status upon admission and devise an individualized program for Caregiver Training New precaution - to improve, our physical therapists will perform initial evaluation of pt's status upon admission and devise an individualized program for Patient precaution education Edema - to improve, our physical therapists will perform initial evaluation of pt's status upon admis marquis and devise an individualized program for Elevation Training, and Lymphedema Therapy Poor balance - to improve, our physical therapists will perform initial evaluation of pt's status up on admission and devise an individualized program for Balance Training Poor endurance - to improve, our physical therapists will perform initial evaluation of pt's status upon admission and devise an individualized program for Endurance Training Weakness - to improve, our physical therapists will perform initial evaluation of pt's status upon a dmission and devise an individualized program for Aquatic Therapy, Neuromuscular Reeducation, and Str engthening Achieving independence - to improve, our physical therapists will perform initial evaluation of pt's status upon admission and devise an individualized program for Community Reintegration Activities - Occupational Therapy ADL deficits - to improve, our occupation therapists will perform initial evaluation of pt's status upon admission and devise an individualized program for Bathing, Bed mobility, Community Reintegratio n, Cooking, Dressing, Eating, Fine Motor Skills, Grooming, Homemaking, Kitchen Mobility, Laundry, Pat ient Education, Safety Awareness, Splinting - Positioning, Transfers(Toilet, Tub, Shower), and Wheel Chair Management Need for ocular care technician - to improve, our occupation therapists will perform initial evaluation of pt's status upon admission and devise an individualized program for Caregiver Training Weakness - to improve, our occupation therapists will perform initial evaluation of pt's status upon admission and devise an individualized program for Aquatic Therapy, Balance, Endurance, UE ROM, and UE strengthening - Diet Type Continue Regular - Diet - Liquid Texture Continue Regular - Tube Feed Continue N/A - Lab Results blood Sugar Check ACHS - Bladder care per protocol - Weight Bearing Precaution WBAT right LE - Skin care per protocol - Diet - Solid Texture Continue Regular - Shower allowing shower for Dementia, TBI, Stroke, or others FUNCTIONAL STATUS: UPDATED AT WEEKLY TEAM CONFERENCE - Bladder Same accident frequency: 7-Ind - No accidents in the past 7 days - Bowel Same accident frequency: 7-Ind - No accidents in the past 7 days - Walking Same score based on distance walked: 0(N/A) - Wheelchair Same score based on distance traveled: 0(N/A) FUNCTIONAL STATUS: - Self-Care A. Eating sup B. Grooming sup C. Bathing Erinn D. Dressing - Upper modA E. Dressing - Lower modA F. Toileting Erinn - Sphincter Control G: Bladder control Ind H: Bowel control Ind - Transfers Control I. Bed/Chair/Wheelchair Erinn J. Toilet Erinn K. Tub/Shower ADNO - Locomotion L. Walk/Wheelchair (C) modA L. Walk/Wheelchair (W) modA M. Stairs ADNO - Communication N. Comprehension (B) Harlan O. Expression (B) Harlan - Social Cognition P. Social Interaction Harlan Q. Problem Solving Harlan R. Memory Harlan - Endurance Fair - Balance Fair - Safety Awareness Fair CURRENT FUNC. DEFICITS: Balance, Self-Care, Locomotion, Endurance, Safety Awareness, and Transfers Control SIGNATURE PANEL: (FISH DRIER)
--- NOTE | 2019-01-27 19:52 | CON ---
Date of Consultation: 01/27/2019 Additional Consulting Physician: Sabino Brewster MD Reason For Consultation: Elevated BUN and creatinine, hypokalemia. History Of Present Illness: This is an 88-year-old gentleman with significant past medical history o f diabetes since 1989 complicated with neuropathy, hypertension, hyperlipidemia, coronary artery dise ase status post MA, status post catheterization back in 2017, chronic kidney disease stage 3B/4, norm al size kidney 11.4/10.4, secondary to hypertension nephrosclerosis, diabetes nephropathy. The patie nt apparently admitted to the hospital with CVA, then has been transferred to rehab for reconditionin g and rehabilitation. Lab showed elevated BUN and creatinine and hypokalemia. For that reason, we h ave been consulted. The patient is being maintained on his medication. No nausea. No vomiting. No shortness of breath. Past Medical History: Include, 1.Hypertension. 2.Osteoarthritis. 3.Chronic kidney disease, stage 4. 4.Hypothyroidism. 5.Benign prostatic hypertrophy. 6.Coronary artery disease. Social History: Denies smoking, denies drinking, denies drug abuse. Family History: Positive for diabetes and hypertension. Past Surgical History: Noncontributory. Review of Systems: Head and Neck: No red eye. No ear pain. GI: No nausea, no vomiting. : No polyuria, no dysuria, no hematuria. Printing Sign Machine Operator: Not applicable. Respiratory: No shortness of breath. Cardiovascular: Has leg swelling. Endocrine: No polydipsia. Skin: No rash. Neurologic: Has neuropathy. Musculoskeletal: Has low back pain. Physical Examination: Vital Signs: Blood pressure 137/63, pulse of 60. Chest: Clear to auscultation. Heart: S1 and S2. Systolic murmur. Abdomen: Soft, nontender, obese. Extremities: Trace edema. Laboratory Data: WBC 10.2, H and H of 13.1 and 39, platelets 242. Sodium 136, potassium 2.9, bicarb 33, BUN 103, creatinine 2.7, GFR of 22, calcium 9.1, magnesium 2.3. Reviewing the record for the pa froylan baseline creatinine 2.2, GFR 28. Current Medications: The patient on it includes, 1.Insulin. 2.KCl. 3.Multivitamin. 4.Tylenol. 5.Levothyroxine 200. 6.Metoprolol. 7.Simvastatin. Assessment And Plan: 1.Chronic kidney disease stage 4, slightly decline in the kidney function. I am going to go ahead a nd decrease the Bumex to 1 mg and we will follow up. 2.Hypertension, controlled, optimal. Currently blood pressure on the lower side. We will decrease the Bumex and we will follow up. 3.Cerebrovascular accident. Continue supportive treatment as by the primary, PT/OT. 4.Hypokalemia. We will supplement cautiously. We will follow up the lab tomorrow. LIA/AGUILA Voice ID: [id number] Report ID: [id number]
[2019-01-27] MEDS: SIMVASTATIN 80 MG PO SCH (21:02)
[2019-01-27] MEDS: TAMSULOSIN 0.4 MG SR CAP PO SCH (21:02)
[2019-01-27] MEDS: ENOXAPARIN 40 MG/0.4 ML SQ SCH (21:06)
--- NOTE | 2019-01-28 02:08 | PN ---
Date of Progress Note: 01/27/2019 Subjective: The patient was seen this morning for followup. No new complaints or problems reported by patient this morning when I saw him except he did have low blood sugar between 40-50 range early t his morning. It was corrected with IV D50 and when I saw him he was feeling fine. Objective: HEENT Examination: Unremarkable. Lungs: Clear to auscultation. Heart: Sounds normal. Abdomen: Soft. Bowel sounds normal. No guarding, rigidity, tenderness, or distention. Extremity E xam: No leg edema. Laboratory Data: White count 10.2, hemoglobin 13.1, platelets 242. Impression: 1.Diabetes mellitus. 2.Stroke. 3.Hypertension. 4.Coronary artery disease. Plan: We will go ahead and continue current insulin per order. Monitor fingerstick blood sugar care fully and we will continue his Plavix, aspirin, folic acid, and other current medical management. I will see him tomorrow for followup. DVT prophylaxis will be given using Lovenox. AUNG/MODL Voice ID: [id number] Report ID: [id number]
--- NOTE | 2019-01-28 03:05 | FAST ---
SHIFT START DATE/TIME: 01/27/2019 19:00 (CORRECTIONAL PROGRAM SPECIALIST) SHIFT END DATE/TIME: 01/28/2019 07:00 (CORRECTIONAL PROGRAM SPECIALIST) NAME ALISSON HERNANDEZ DATE OF : 1930 DATE OF ADMISSION: 01/26/2019 13:45 (CORRECTIONAL PROGRAM SPECIALIST) PHONE: AGE: 88 SSN# [id number] GENDER: Male ENCOUNTER PHYSICIAN: Dr. Sabino Brewster M.D. ADMISSION DIAGNOSIS: - Stroke 01 - Right Body (Left Brain) (01.2) Acute left inferior cerebellar infarct. EATING: Activity did not occur on this shift EATING - SCORE: 0-UNK GROOMING: Activity did not occur on this shift GROOMING - SCORE: 0-UNK BATHING: Activity did not occur on this shift BATHING - SCORE: 0-UNK DRESSING - UPPER BODY: Activity did not occur on this shift ARTICLES SCORE Total number of steps: 0 DRESSING - UPPER BODY - SCORE: 0-UNK DRESSING - LOWER BODY: Activity did not occur on this shift ARTICLES SCORE Total number of steps: 0 DRESSING - LOWER BODY - SCORE: 0-UNK TOILETING: Activity did not occur on this shift TOILETING - SCORE: 0-UNK BLADDER MANAGEMENT: BLADDER MANAGEMENT - STEP 1: Does the patient control the bladder completely and intentionally without equipment or devices or med ications, and is always continent? No. BLADDER MANAGEMENT - STEP 2: Does the patient require the assistance of a helper? Yes. BLADDER MANAGEMENT - STEP 3: How much assistance does the patient require from the helper? Patient requires contact assistance fro m the helper BLADDER MANAGEMENT - STEP 4: How much contact assistance does the patient require from the helper? Patient requires moderate shantell tance, and performs 50% to 75% of bladder management tasks - [place] positions AND holds urinal or bed luna BLADDER MANAGEMENT - SCORE: 3-MOD BOWEL MANAGEMENT: Activity did not occur on this shift BOWEL MANAGEMENT - SCORE: 7-IND TRANSFERS: BED, CHAIR, WHEELCHAIR: Patient requires more than one helper and/or the use of a mechanical lift is utilized TRANSFERS: BED, CHAIR, WHEELCHAIR - SCORE: 1-DEP TRANSFERS: TOILET: Activity did not occur on this shift TRANSFERS: TOILET - SCORE: 0-UNK TRANSFERS: SHOWER: Activity did not occur on this shift TRANSFERS: SHOWER - SCORE: 0-UNK TRANSFERS: TUB: Activity did not occur on this shift TRANSFERS: TUB - SCORE: 0-UNK LOCOMOTION: WALK: Activity did not occur on this shift LOCOMOTION: WALK - SCORE: 0-UNK LOCOMOTION: WHEELCHAIR: Activity did not occur on this shift LOCOMOTION: WHEELCHAIR - SCORE: 0-UNK COMPREHENSION: COMPREHENSION: TYPE: Both COMPREHENSION - STEP 1: Does the patient require help from a person or device, or need extra time to understand complex and a bstract ideas (such as current events, finances, discharge planning, medical issues, relationships, e tc)? Yes. COMPREHENSION - STEP 2: Does the patient require help to understand questions or statements about basic needs or ideas (such as hunger, thirst, sleep, safety, daily schedule, room location, or discomfort) half or more of the t ld? No. COMPREHENSION - STEP 3: How often does the patient need help to understand directions and conversation about basic needs? 10% - 24% of the time COMPREHENSION - SCORE: 4-MIN EXPRESSION EXPRESSION: TYPE: Both EXPRESSION - STEP 1: Does the patient require help from a person or device, or need extra time expressing complex and abst ract ideas (such as current events, finances, discharge planning, medical issues, relationships, etc) ? Yes. EXPRESSION - STEP 2: Does the patient require help to express basic necessities or ideas (such as hunger, thirst, sleep, s afety, daily schedule, room location, or discomfort) half or more of the time? No. EXPRESSION - STEP 3: How often does the patient need help to express directions and conversation about basic needs? 10-24% of the time EXPRESSION - SCORE: 4-MIN SOCIAL INTERACTION: SOCIAL INTERACTION - STEP 1: Does the patient require a helper to interact with others in social and therapeutic situations? No. SOCIAL INTERACTION - STEP 2: Does the patient need extra time in social situations, OR does s/he interact with staff, other patien ts, and family members ONLY in structured environments, OR does s/he require medication for social in teraction? Yes, patient needs extra time SOCIAL INTERACTION - SCORE: 6-SINGH PROBLEM SOLVING: Patient requires bed/chair alarms due to attempts to get up unassisted when helper is needed. PROBLEM SOLVING - STEP 1: How often do the bed/chair alarms go off? Occasionally - the alarms go off about 25% or less PROBLEM SOLVING - SCORE: 4-MIN MEMORY: MEMORY - STEP 1: How often do the bed/chair alarms go off? Occasionally - the alarms go off about 25% of the time or l ess MEMORY - SCORE: 4-MIN SIGNATURE PANEL: The following modified sections: Eating - Score, Grooming - Score, Bathing - Score, Dressing - Upper Body - Score, Dressing - Lower Body - Score, Toileting - Score, Bladder Management - Score, Bowel Man agement - Score, Transfers: Bed, Chair, Wheelchair - Score, Transfers: Toilet - Score, Transfers: Iris wer - Score, Transfers: Tub - Score, Locomotion: Walk - Score, Locomotion: Wheelchair - Score, Compre hension - Score, Expression - Score, Social Interaction - Score, Problem Solving - Score, Memory - Sc ore were [electronically] signed by Ileana Cleary CNA on FriJan 28 2019 03:04:22 T-0600 ([facility])
[2019-01-28] MEDS: METOPROLOL XL 50 MG TAB PO SCH ×2 (05:12→17:27)
[2019-01-28 06:31] LABS: Absolute Lymphocytes (CBC) 1.5 K/uL (0.7-4.9); Absolute Monocytes 1.1 K/uL (0.1-1.3); Basophils % 0.5 % (0-1.3); Eosinophils % 2.7 % (0-4.4); Hematocrit 37.9 % (39.6-49.0); Lymphocytes % 16.5 % (15.3-44.8); MPV 11.4 fL (7.6-11.3); Monocytes % 12.5 % (3.3-12.3)
[2019-01-28] MEDS: LEVOTHYROXINE 88 MCG PO SCH (07:09)
[2019-01-28] MEDS: LEVOTHYROXINE 200 MCG PO SCH (07:09)
[2019-01-28] MEDS: D50W 25 GM/50 ML SYRINGE IV PRN (07:14)
[2019-01-28 07:16] LABS: Albumin 3.3 g/dL (3.4-5.0); Potassium 3.1 mmol/L (3.5-5.1); Prealbumin 24.4 mg/dL (20-40)
[2019-01-28] MEDS ORDERED: POTASSIUM CL SA 10 MEQ TAB PO ONE (07:20)
[2019-01-28] MEDS: INSULIN -REGULAR HUMAN 50 UNIT/0.5 ML ML SQ SCH ×4 (07:30→20:57)
[2019-01-28] MEDS: ASPIRIN EC 81 MG TAB PO SCH (07:51)
[2019-01-28] MEDS: BUMETANIDE 1 MG TABLET PO SCH (07:51)
[2019-01-28] MEDS: MULTIVITAMIN TAB PO SCH (07:51)
[2019-01-28] MEDS: CLOPIDOGREL 75 MG TABLET PO SCH (07:54)
[2019-01-28] MEDS: FOLIC ACID 1 MG TABLET PO SCH (07:58)
[2019-01-28] MEDS: ISOSORBIDE MONO SR 60 MG TAB PO SCH (08:00)
[2019-01-28] MEDS: ISOSORBIDE MONO SR 30 MG TAB PO SCH (08:49)
[2019-01-28] MEDS: INSULIN GLARGINE 100 UNITS/ML SQ SCH (09:18)
--- NOTE | 2019-01-28 10:35 | FAST ---
ENCOUNTER DATE AND TIME: 01/28/2019 08:00 (SUBACUTE NURSE) NAME ALISSON HERNANDEZ DATE OF : 1930 DATE OF ADMISSION: 01/26/2019 13:45 (SUBACUTE NURSE) PHONE: AGE: 88 N# [id number] GENDER: Male ENCOUNTER PHYSICIAN: Dr. Sabino Brewster M.D. ADMISSION DIAGNOSIS: - Stroke 01 - Right Body (Left Brain) (01.2) Acute left inferior cerebellar infarct. EATING: Activity did not occur on this shift EATING - SCORE: 0-UNK GROOMING: Activity did not occur on this shift GROOMING - SCORE: 0-UNK BATHING: Activity did not occur on this shift BATHING - SCORE: 0-UNK DRESSING - UPPER BODY: Activity did not occur on this shift Patient is not dressing in public clothing ARTICLES SCORE Total number of steps: 0 DRESSING - UPPER BODY - SCORE: 0-UNK DRESSING - LOWER BODY: Activity did not occur on this shift Patient is not dressing in public clothing ARTICLES SCORE Total number of steps: 0 DRESSING - LOWER BODY - SCORE: 0-UNK TOILETING: Activity did not occur on this shift TOILETING - SCORE: 0-UNK BLADDER MANAGEMENT: Activity did not occur on this shift BLADDER MANAGEMENT - SCORE: 7-IND BOWEL MANAGEMENT: Activity did not occur on this shift BOWEL MANAGEMENT - SCORE: 7-IND TRANSFERS: BED, CHAIR, WHEELCHAIR: TRANSFERS: BED, CHAIR, WHEELCHAIR - STEP 1: Does the patient require assistance of a person or device, or need extra time with bed, chair, or whe elchair transfers? Yes. TRANSFERS: BED, CHAIR, WHEELCHAIR - STEP 2: Does the patient require the assistance of a helper? Yes. TRANSFERS: BED, CHAIR, WHEELCHAIR - STEP 3: How much assistance does the patient require from the helper? Steadying/guiding assistance TRANSFERS: BED, CHAIR, WHEELCHAIR - SCORE: 4-MIN TRANSFERS: TOILET: Activity did not occur on this shift TRANSFERS: TOILET - SCORE: 0-UNK TRANSFERS: SHOWER: Activity did not occur on this shift TRANSFERS: SHOWER - SCORE: 0-UNK TRANSFERS: TUB: Activity did not occur on this shift TRANSFERS: TUB - SCORE: 0-UNK LOCOMOTION: WALK: LOCOMOTION: WALK - STEP 1: Does the patient need help from a person or device, or need extra time to walk 150 feet? Yes. LOCOMOTION: WALK - STEP 2: How much assistance does the patient require to walk a minimum of 150 feet? More than incidental help LOCOMOTION: WALK - SCORE: 3-MOD LOCOMOTION: WHEELCHAIR: LOCOMOTION: WHEELCHAIR - STEP 1: Does the patient need help to go 150 feet in a wheelchair? Yes. LOCOMOTION: WHEELCHAIR - STEP 2: How much assistance does the patient need from the helper? Only supervision, cuing, or coaxing LOCOMOTION: WHEELCHAIR - SCORE: 5-SUP LOCOMOTION: STAIRS: Activity did not occur on this shift LOCOMOTION: STAIRS - SCORE: 0-UNK COMPREHENSION: COMPREHENSION - SCORE: 0-UNK EXPRESSION EXPRESSION - SCORE: 0-UNK SOCIAL INTERACTION: SOCIAL INTERACTION - SCORE: 0-UNK PROBLEM SOLVING: PROBLEM SOLVING - SCORE: 0-UNK MEMORY: MEMORY - SCORE: 0-UNK SIGNATURE PANEL: The following modified sections: Transfers: Bed, Chair, Wheelchair - Score, Transfers: Toilet - Score , Locomotion: Walk - Score, Locomotion: Wheelchair - Score, Locomotion: Stairs - Score were [nate [email or web address]] signed by Su Roberts PTA on FriJan 28 2019 10:34:17 GMT-0600 (Central Standard Time)
--- NOTE | 2019-01-28 14:29 | FAST ---
SHIFT START DATE/TIME: 01/28/2019 07:00 (PLASTIC SEWER) SHIFT END DATE/TIME: 01/28/2019 19:00 (PLASTIC SEWER) NAME ALISSON HERNANDEZ DATE OF : 1930 DATE OF ADMISSION: 01/26/2019 13:45 (PLASTIC SEWER) PHONE: AGE: 88 N# [id number] GENDER: Male ENCOUNTER PHYSICIAN: Dr. Sabino Brewster M.D. ADMISSION DIAGNOSIS: - Stroke 01 - Right Body (Left Brain) (01.2) Acute left inferior cerebellar infarct. EATING: EATING - STEP 1: Does the patient require the assistance of a person or device, or need extra time when eating? Yes. EATING - STEP 2: Does the patient require the assistance of a helper? No, patient only requires an assistive device, O R s/he takes more than reasonable time to eat, OR there is a safety concern, OR s/he requires modifie d food consistency EATING - SCORE: 6-SINGH GROOMING: Activity did not occur on this shift GROOMING - SCORE: 0-UNK BATHING: Activity did not occur on this shift BATHING - SCORE: 0-UNK DRESSING - UPPER BODY: Activity did not occur on this shift ARTICLES SCORE Total number of steps: 0 DRESSING - UPPER BODY - SCORE: 0-UNK DRESSING - LOWER BODY: Activity did not occur on this shift ARTICLES SCORE Total number of steps: 0 DRESSING - LOWER BODY - SCORE: 0-UNK TOILETING: TOILETING - STEP 1: Does the patient require the assistance of a person or device, or need extra time with toileting? Yes . TOILETING - STEP 2: Does the patient require the assistance of a helper? Yes. TOILETING - STEP 3: How much assistance does the patient require from the helper? Hands-on assistance from the helper TOILETING - STEP 4: Of the 3 tasks: 1) Adjusting clothing prior to use, 2) Cleansing of perineal area, 3) Adjusting clot gregor after use; How many tasks does the patient perform WITHOUT assistance of the helper? No tasks; h lexa performs all three tasks TOILETING - SCORE: 1-DEP BLADDER MANAGEMENT: BLADDER MANAGEMENT - STEP 1: Does the patient control the bladder completely and intentionally without equipment or devices or med ications, and is always continent? No. BLADDER MANAGEMENT - STEP 2: Does the patient require the assistance of a helper? No, patient requires and independently uses an a ssistive device, such as a urinal, bedpan, bedside commode, catheter, absorbent pad, or collecting de vice BLADDER MANAGEMENT - SCORE: 6-SINGH BOWEL MANAGEMENT: BOWEL MANAGEMENT - STEP 1: Does the patient control bowels completely and intentionally without equipment devices or medications AND is always continent? No. BOWEL MANAGEMENT - STEP 2: Does the patient require the assistance of a helper? No, patient requires and manages independently a n assistive device such as a bedpan, bedside commode, absorbent pad, incontinent device, or collectin g device BOWEL MANAGEMENT - SCORE: 6-SINGH TRANSFERS: BED, CHAIR, WHEELCHAIR: TRANSFERS: BED, CHAIR, WHEELCHAIR - STEP 1: Does the patient require assistance of a person or device, or need extra time with bed, chair, or whe elchair transfers? Yes. TRANSFERS: BED, CHAIR, WHEELCHAIR - STEP 2: Does the patient require the assistance of a helper? Yes. TRANSFERS: BED, CHAIR, WHEELCHAIR - STEP 3: How much assistance does the patient require from the helper? Lifting of the patient TRANSFERS: BED, CHAIR, WHEELCHAIR - STEP 4: Does the helper lift the patient ONLY up? ONLY down? Up AND Down? Up AND Down. TRANSFERS: BED, CHAIR, WHEELCHAIR - SCORE: 2-MAX TRANSFERS: TOILET: TRANSFERS: TOILET - STEP 1: Does the patient require the assistance of a person or device, or need extra time with toilet transfe rs? Yes. TRANSFERS: TOILET - STEP 2: Does the patient require the assistance of a helper? Yes. TRANSFERS: TOILET - STEP 3: How much assistance does the patient require from the helper? Patient performs less than half of the transferring tasks TRANSFERS: TOILET - STEP 4: Does the patient require total assistance for the toilet transfer such as the helper doing basically all the lifting? No. TRANSFERS: TOILET - SCORE: 2-MAX TRANSFERS: SHOWER: Activity did not occur on this shift TRANSFERS: SHOWER - SCORE: 0-UNK TRANSFERS: TUB: Activity did not occur on this shift TRANSFERS: TUB - SCORE: 0-UNK LOCOMOTION: WALK: Activity did not occur on this shift LOCOMOTION: WALK - SCORE: 0-UNK LOCOMOTION: WHEELCHAIR: Activity did not occur on this shift LOCOMOTION: WHEELCHAIR - SCORE: 0-UNK COMPREHENSION: COMPREHENSION: TYPE: Both COMPREHENSION - STEP 1: Does the patient require help from a person or device, or need extra time to understand complex and a bstract ideas (such as current events, finances, discharge planning, medical issues, relationships, e tc)? Yes. COMPREHENSION - STEP 2: Does the patient require help to understand questions or statements about basic needs or ideas (such as hunger, thirst, sleep, safety, daily schedule, room location, or discomfort) half or more of the t ld? No. COMPREHENSION - STEP 3: How often does the patient need help to understand directions and conversation about basic needs? 10% - 24% of the time COMPREHENSION - SCORE: 4-MIN EXPRESSION EXPRESSION: TYPE: Both EXPRESSION - STEP 1: Does the patient require help from a person or device, or need extra time expressing complex and abst ract ideas (such as current events, finances, discharge planning, medical issues, relationships, etc) ? Yes. EXPRESSION - STEP 2: Does the patient require help to express basic necessities or ideas (such as hunger, thirst, sleep, s afety, daily schedule, room location, or discomfort) half or more of the time? No. EXPRESSION - STEP 3: How often does the patient need help to express directions and conversation about basic needs? 10-24% of the time EXPRESSION - SCORE: 4-MIN SOCIAL INTERACTION: SOCIAL INTERACTION - STEP 1: Does the patient require a helper to interact with others in social and therapeutic situations? No. SOCIAL INTERACTION - STEP 2: Does the patient need extra time in social situations, OR does s/he interact with staff, other patien ts, and family members ONLY in structured environments, OR does s/he require medication for social in teraction? Yes, patient needs extra time SOCIAL INTERACTION - SCORE: 6-SINGH PROBLEM SOLVING: PROBLEM SOLVING - STEP 1: Does the patient need help from a person or device, or need extra time to solve complex problems such as managing a checking account or confronting interpersonal problems? Yes. PROBLEM SOLVING - STEP 2: Does the patient solve basic routine problems half or more of the time? Yes. PROBLEM SOLVING - STEP 3: How often does the patient need help to solve basic routine problems? 10%-24% of the time PROBLEM SOLVING - SCORE: 4-MIN MEMORY: MEMORY - STEP 1: Does the patient need help from a person or device, or need extra time to remember frequently encount ered people, daily routines, and executing requests? Yes. MEMORY - STEP 2: How often does the patient need help to remember frequently encountered people, daily routines, and e xecuting requests? 10% - 24% of the time MEMORY - SCORE: 4-MIN SIGNATURE PANEL: The following modified sections: Eating - Score, Grooming - Score, Bathing - Score, Dressing - Upper Body - Score, Dressing - Lower Body - Score, Toileting - Score, Bladder Management - Score, Bowel Man agement - Score, Transfers: Bed, Chair, Wheelchair - Score, Transfers: Toilet - Score, Transfers: Iris wer - Score, Transfers: Tub - Score, Locomotion: Walk - Score, Locomotion: Wheelchair - Score, Compre hension - Score, Expression - Score, Social Interaction - Score, Problem Solving - Score, Memory - Sc ore were [electronically] signed by Barrera Liang on FriJan 28 2019 14:28:38 GMT-0600 (Central Standard Time)
[2019-01-28] MEDS ORDERED: BUMETANIDE 1 MG TABLET PO SCH (17:00)
[2019-01-28] MEDS: SIMVASTATIN 80 MG PO SCH (20:35)
[2019-01-28] MEDS: TAMSULOSIN 0.4 MG SR CAP PO SCH (20:35)
[2019-01-28] MEDS: ENOXAPARIN 30 MG/0.3 ML SQ SCH (20:35)
--- NOTE | 2019-01-29 00:51 | FAST ---
SHIFT START DATE/TIME: 01/28/2019 19:00 (LITHOPLATE MAKER) SHIFT END DATE/TIME: 01/29/2019 07:00 (LITHOPLATE MAKER) NAME ALISSON HERNANDEZ DATE OF : 1930 DATE OF ADMISSION: 01/26/2019 13:45 (LITHOPLATE MAKER) PHONE: AGE: 88 N# [id number] GENDER: Male ENCOUNTER PHYSICIAN: Dr. Sabino Brewster M.D. ADMISSION DIAGNOSIS: - Stroke 01 - Right Body (Left Brain) (01.2) Acute left inferior cerebellar infarct. EATING: Activity did not occur on this shift EATING - SCORE: 0-UNK GROOMING: Activity did not occur on this shift GROOMING - SCORE: 0-UNK BATHING: Activity did not occur on this shift BATHING - SCORE: 0-UNK DRESSING - UPPER BODY: Patient is not dressing in public clothing ARTICLES SCORE Total number of steps: 0 DRESSING - UPPER BODY - SCORE: 0-UNK DRESSING - LOWER BODY: Patient is not dressing in public clothing ARTICLES SCORE Total number of steps: 0 DRESSING - LOWER BODY - SCORE: 0-UNK TOILETING: TOILETING - STEP 1: Does the patient require the assistance of a person or device, or need extra time with toileting? Yes . TOILETING - STEP 2: Does the patient require the assistance of a helper? Yes. TOILETING - STEP 3: How much assistance does the patient require from the helper? Hands-on assistance from the helper TOILETING - STEP 4: Of the 3 tasks: 1) Adjusting clothing prior to use, 2) Cleansing of perineal area, 3) Adjusting clot gregor after use; How many tasks does the patient perform WITHOUT assistance of the helper? No tasks; h lexa performs all three tasks TOILETING - SCORE: 1-DEP BLADDER MANAGEMENT: BLADDER MANAGEMENT - STEP 1: Does the patient control the bladder completely and intentionally without equipment or devices or med ications, and is always continent? No. BLADDER MANAGEMENT - STEP 2: Does the patient require the assistance of a helper? Yes. BLADDER MANAGEMENT - STEP 3: How much assistance does the patient require from the helper? Patient requires contact assistance fro m the helper BLADDER MANAGEMENT - STEP 4: How much contact assistance does the patient require from the helper? Patient requires moderate shantell tance, and performs 50% to 75% of bladder management tasks - [place] positions AND holds urinal or bed luna BLADDER MANAGEMENT - SCORE: 3-MOD BOWEL MANAGEMENT: Activity did not occur on this shift BOWEL MANAGEMENT - SCORE: 7-IND TRANSFERS: BED, CHAIR, WHEELCHAIR: Patient requires more than one helper and/or the use of a mechanical lift is utilized TRANSFERS: BED, CHAIR, WHEELCHAIR - SCORE: 1-DEP TRANSFERS: TOILET: Patient requires more than one helper and/or the use of a mechanical lift is utilized TRANSFERS: TOILET - SCORE: 1-DEP TRANSFERS: SHOWER: Activity did not occur on this shift TRANSFERS: SHOWER - SCORE: 0-UNK TRANSFERS: TUB: Activity did not occur on this shift TRANSFERS: TUB - SCORE: 0-UNK LOCOMOTION: WALK: Activity did not occur on this shift LOCOMOTION: WALK - SCORE: 0-UNK LOCOMOTION: WHEELCHAIR: Activity did not occur on this shift LOCOMOTION: WHEELCHAIR - SCORE: 0-UNK COMPREHENSION: COMPREHENSION: TYPE: Both COMPREHENSION - STEP 1: Does the patient require help from a person or device, or need extra time to understand complex and a bstract ideas (such as current events, finances, discharge planning, medical issues, relationships, e tc)? Yes. COMPREHENSION - STEP 2: Does the patient require help to understand questions or statements about basic needs or ideas (such as hunger, thirst, sleep, safety, daily schedule, room location, or discomfort) half or more of the t ld? No. COMPREHENSION - STEP 3: How often does the patient need help to understand directions and conversation about basic needs? 10% - 24% of the time COMPREHENSION - SCORE: 4-MIN EXPRESSION EXPRESSION: TYPE: Both EXPRESSION - STEP 1: Does the patient require help from a person or device, or need extra time expressing complex and abst ract ideas (such as current events, finances, discharge planning, medical issues, relationships, etc) ? Yes. EXPRESSION - STEP 2: Does the patient require help to express basic necessities or ideas (such as hunger, thirst, sleep, s afety, daily schedule, room location, or discomfort) half or more of the time? No. EXPRESSION - STEP 3: How often does the patient need help to express directions and conversation about basic needs? 10-24% of the time EXPRESSION - SCORE: 4-MIN SOCIAL INTERACTION: SOCIAL INTERACTION - STEP 1: Does the patient require a helper to interact with others in social and therapeutic situations? No. SOCIAL INTERACTION - STEP 2: Does the patient need extra time in social situations, OR does s/he interact with staff, other patien ts, and family members ONLY in structured environments, OR does s/he require medication for social in teraction? Yes, patient needs extra time SOCIAL INTERACTION - SCORE: 6-SINGH PROBLEM SOLVING: Patient requires bed/chair alarms due to attempts to get up unassisted when helper is needed. PROBLEM SOLVING - STEP 1: How often do the bed/chair alarms go off? Occasionally - the alarms go off about 25% or less PROBLEM SOLVING - SCORE: 4-MIN MEMORY: MEMORY - STEP 1: How often do the bed/chair alarms go off? Occasionally - the alarms go off about 25% of the time or l ess MEMORY - SCORE: 4-MIN SIGNATURE PANEL: The following modified sections: Eating - Score, Grooming - Score, Bathing - Score, Dressing - Upper Body - Score, Dressing - Lower Body - Score, Toileting - Score, Bladder Management - Score, Bowel Man agement - Score, Transfers: Bed, Chair, Wheelchair - Score, Transfers: Toilet - Score, Transfers: Iris wer - Score, Transfers: Tub - Score, Locomotion: Walk - Score, Locomotion: Wheelchair - Score, Compre hension - Score, Expression - Score, Social Interaction - Score, Problem Solving - Score, Memory - Sc ore were [electronically] signed by Ileana Cleary CNA on FriJan 29 2019 00:50:20 GMT-0600 ([facility])
--- NOTE | 2019-01-29 00:56 | PN ---
Date of Progress Note: 01/28/2019 Subjective: The patient was seen this morning for followup. No new complaints or problems reported by the patient. Lying in bed, not in distress. His blood sugar had dropped down again early this mo rning and it was corrected with IV D50. The patient did have small amount of snack last night at bed time per order. Objective: Vital Signs: Reviewed. HEENT: Unremarkable. Lungs: Clear to auscultation. Heart: Sounds normal. Abdomen: Soft. Bowel sounds normal. No guarding, rigidity, tenderness, or distention. Extremities: No leg edema. Laboratory Data: White count 8.9, hemoglobin 12.9, and platelets 238. Sodium 138, potassium 3.1, ch loride 97, bicarb 32, BUN 101, creatinine 2.66, and glucose 40. Impression: 1.Hypoglycemia. 2.Chronic kidney disease stage 4. 3.Hypokalemia. 4.Coronary artery disease. 5.Hypertension. 6.Diabetes mellitus, uncontrolled. Plan: We will go ahead and discontinue Lantus insulin dose that he gets it at bedtime, which is 15 u nits. We will continue morning dose of Lantus and sliding scale insulin per order. We will reduce d ose of Bumex from 2 mg twice a day to 2 mg once a day as his BUN has gone up in last couple of days. We will continue other current medications and replace potassium per order. I will see him tomorrow for followup, monitor fingerstick blood sugar, and we will consider making adjustment on insulin sharron orrow if needed. I have advised the patient and nursing staff for him to give a large amount of snack at bedtime, especially something like peanu t butter. AUNG/MODL Voice ID: [id number] Report ID: [id number]
[2019-01-29] MEDS: METOPROLOL XL 50 MG TAB PO SCH ×2 (05:14→17:25)
[2019-01-29] MEDS: D50W 25 GM/50 ML SYRINGE IV PRN (05:47)
[2019-01-29 06:27] LABS: Albumin 3.2 g/dL (3.4-5.0); Phosphorus 4.1 mg/dL (2.5-4.9); Potassium 3.3 mmol/L (3.5-5.1)
[2019-01-29] MEDS: LEVOTHYROXINE 200 MCG PO SCH (06:59)
[2019-01-29] MEDS: INSULIN -REGULAR HUMAN 50 UNIT/0.5 ML ML SQ SCH ×4 (06:59→20:40)
[2019-01-29] MEDS: LEVOTHYROXINE 88 MCG PO SCH (06:59)
[2019-01-29] MEDS: INSULIN GLARGINE 100 UNITS/ML SQ SCH (07:25)
[2019-01-29] MEDS: ISOSORBIDE MONO SR 30 MG TAB PO SCH (07:55)
[2019-01-29] MEDS: ASPIRIN EC 81 MG TAB PO SCH (07:56)
[2019-01-29] MEDS: FOLIC ACID 1 MG TABLET PO SCH (07:57)
[2019-01-29] MEDS: BUMETANIDE 2 MG TABLET PO SCH (07:57)
[2019-01-29] MEDS: CLOPIDOGREL 75 MG TABLET PO SCH (07:57)
[2019-01-29] MEDS: MULTIVITAMIN TAB PO SCH (07:58)
--- NOTE | 2019-01-29 10:05 | P.RH.PN ---
Estimated Length of Stay: 14 Expected Discharge Date: 02/08/19 Discharge Disposition Plan: Home Family Support: Yes Fpc Goal: Mobility, Transfers, Self Care Vital Signs: Last Vital Signs Temp 97.4 F 01/29/19 09:19 Pulse 58 01/29/19 09:19 Resp 16 01/29/19 09:19 BP 163/71 H 01/29/19 09:19 Pulse Ox 99 01/29/19 09:19 Laboratory: Laboratory Last Values WBC 8.9 K/uL (4.3-10.9) 01/28/19 05:47 RBC 4.30 M/uL (4.33-5.43) L 01/28/19 05:47 Hgb 12.9 g/dL (13.6-17.9) L 01/28/19 05:47 Hct 37.9 % (39.6-49.0) L 01/28/19 05:47 MCV 88.2 fL (80-100) 01/28/19 05:47 MCH 29.9 pg (27.0-35.0) 01/28/19 05:47 MCHC 33.9 g/dL (32.0-36.0) 01/28/19 05:47 RDW 13.6 % (12.1-15.2) 01/28/19 05:47 Plt Count 238 K/uL (152-406) 01/28/19 05:47 MPV 11.4 fL (7.6-11.3) H 01/28/19 05:47 Neutrophils % 67.8 % (41.7-73.7) 01/28/19 05:47 Lymphocytes % 16.5 % (15.3-44.8) 01/28/19 05:47 Monocytes % 12.5 % (3.3-12.3) H 01/28/19 05:47 Eosinophils % 2.7 % (0-4.4) 01/28/19 05:47 Basophils % 0.5 % (0-1.3) 01/28/19 05:47 Absolute Neutrophils 6.0 K/uL (1.8-8.0) 01/28/19 05:47 Absolute Lymphocytes 1.5 K/uL (0.7-4.9) 01/28/19 05:47 Absolute Monocytes 1.1 K/uL (0.1-1.3) 01/28/19 05:47 Absolute Eosinophils 0.2 K/uL (0-0.5) 01/28/19 05:47 Absolute Basophils 0.0 K/uL (0-0.5) 01/28/19 05:47 Sodium 139 mmol/L (136-145) 01/29/19 05:30 Potassium 3.3 mmol/L (3.5-5.1) L 01/29/19 05:30 Chloride 99 mmol/L (98-107) 01/29/19 05:30 Carbon Dioxide 32 mmol/L (21-32) 01/29/19 05:30 BUN 102 mg/dL (7-18) H 01/29/19 05:30 Creatinine 2.69 mg/dL (0.55-1.3) H 01/29/19 05:30 Estimated GFR 23 mL/min (=/>90) L 01/29/19 05:30 Glucose 44 mg/dL (74-106) L* 01/29/19 05:30 POC Glucose 133 mg/dl (65-120) H 01/29/19 07:20 Calcium 8.8 mg/dL (8.5-10.1) 01/29/19 05:30 Phosphorus 4.1 mg/dL (2.5-4.9) 01/29/19 05:30 Magnesium 2.3 mg/dL (1.8-2.4) 01/27/19 06:07 Albumin 3.2 g/dL (3.4-5.0) L 01/29/19 05:30 Prealbumin 24.4 mg/dL (20-40) 01/28/19 05:47 Urine Color Yellow 01/26/19 14:40 Urine Appearance Clear 01/26/19 14:40 Urine pH 5.5 (5.0-7.0) 01/26/19 14:40 Ur Specific [place] 1.015 (1.005-1.030) 01/26/19 14:40 Urine Ketones Negative (NEG) 01/26/19 14:40 Urine Blood Negative (NEG) 01/26/19 14:40 Urine Nitrite Negative (NEG) 01/26/19 14:40 Urine Bilirubin Negative (NEG) 01/26/19 14:40 Urine Urobilinogen 0.2 mg/dL (0.2-1.0) 01/26/19 14:40 Ur Leukocyte Esterase Negative (NEG) 01/26/19 14:40 Urine RBC None seen /HPF (NONE SEEN) 01/26/19 14:40 Urine WBC <5 /HPF (<5) 01/26/19 14:40 Ur Squamous Epith Cells <5 /HPF (NONE SEEN) 01/26/19 14:40 Urine Bacteria None seen /HPF (NONE SEEN) 01/26/19 14:40 Urine Culture Reflexed Not needed 01/26/19 14:40 Urine Glucose 1+ (NEG) H 01/26/19 14:40 Urine Total Protein Trace (NEG) 01/26/19 14:40 Weight: 229 lb 4.8 oz Wound Present: No Closed Surgical Incision Present: No Negative Pressure Wound Therapy Present: No Physician Update: His blood sugars are difficult to control. Dr. Puga is adjusting his hypoglycemic. He is doing better with therapy. Ambulating 15' with moderate assistance. He will require more time with therapy. Medical Issues: Lovenox 30mg SQ Daily Functional Improvement: pt is demonstrating improvement and is eager to participate in therapy sessions. pt continues to be motivated and requires further PT services to enhance functional performance and safety. Functional Improvement Occupational Therapy: Patient demonstrating slow steady progress toward goals as set in POC. Continues to benefit from further OT to address said goals. Speech Therapy Update: Patient obtained a 17/30 on the MOCA suggesting a Moderate Cognitive Impairment. Patient's cognitive-linguistic skills are limited by his hearing impairments, despite the use of hearing aids. Patient also fatigues easily. Today, pt exhibited emotional lability but he was redirectable. Patient is at MIN A for Auditory Comprehension and Problem solving, MOD I for verbal expression and social interaction, and MOD A for memory. 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 Please see the Rehabilitation Signature page for all necessary signatures.
--- NOTE | 2019-01-29 10:15 | FAST ---
SHIFT START DATE/TIME: 01/29/2019 07:00 (VENEER TRIMMER) SHIFT END DATE/TIME: 01/29/2019 19:00 (VENEER TRIMMER) NAME ALISSON HERNANDEZ DATE OF : 1930 DATE OF ADMISSION: 01/26/2019 13:45 (VENEER TRIMMER) PHONE: AGE: 88 N# [id number] GENDER: Male ENCOUNTER PHYSICIAN: Dr. Sabino Brewster M.D. ADMISSION DIAGNOSIS: - Stroke 01 - Right Body (Left Brain) (01.2) Acute left inferior cerebellar infarct. EATING: EATING - STEP 1: Does the patient require the assistance of a person or device, or need extra time when eating? Yes. EATING - STEP 2: Does the patient require the assistance of a helper? No, patient only requires an assistive device, O R s/he takes more than reasonable time to eat, OR there is a safety concern, OR s/he requires modifie d food consistency EATING - SCORE: 6-SINGH GROOMING: GROOMING - STEP 1: Does the patient require the assistance of a person or device, or need extra time when grooming? Yes. GROOMING - STEP 2: Does the patient require the assistance of a helper? Yes. GROOMING - STEP 3: How much assistance does the patient require from the helper? Cuing, coaxing, instructions, or encour agement for completion of grooming GROOMING - SCORE: 5-SUP BATHING: Activity did not occur on this shift BATHING - SCORE: 0-UNK DRESSING - UPPER BODY: T-shirt/pullover shirt (four steps) ARTICLES SCORE Total number of steps: 4 DRESSING - UPPER BODY - STEP 1: Does the patient require help from a person or device, or need extra time when dressing above the [address]? Yes. DRESSING - UPPER BODY - STEP 2: Does the patient require the assistance of a helper? Yes. DRESSING - UPPER BODY - STEP 3: Does the helper touch the patient while dressing? Yes. DRESSING - UPPER BODY - STEP 4: How many of the total steps does the patient complete on his/her own? 3 DRESSING - UPPER BODY - SCORE: 4-MIN DRESSING - LOWER BODY: Activity did not occur on this shift ARTICLES SCORE Total number of steps: 0 DRESSING - LOWER BODY - SCORE: 0-UNK TOILETING: TOILETING - STEP 1: Does the patient require the assistance of a person or device, or need extra time with toileting? Yes . TOILETING - STEP 2: Does the patient require the assistance of a helper? No. TOILETING - SCORE: 6-SINGH BLADDER MANAGEMENT: BLADDER MANAGEMENT - STEP 1: Does the patient control the bladder completely and intentionally without equipment or devices or med ications, and is always continent? Yes. BLADDER MANAGEMENT - SCORE: 7-IND BLADDER MANAGEMENT - FREQUENCY OF ACCIDENTS: BLADDER MANAGEMENT(FA) - STEP 1: How many accidents has the patient had during the current shift? 0 BOWEL MANAGEMENT: BOWEL MANAGEMENT - STEP 1: Does the patient control bowels completely and intentionally without equipment devices or medications AND is always continent? Yes. BOWEL MANAGEMENT - SCORE: 7-IND BOWEL MANAGEMENT - FREQUENCY OF ACCIDENTS: BOWEL MANAGEMENT(FA) - STEP 1: How many accidents has the patient had during the current shift? 0 TRANSFERS: BED, CHAIR, WHEELCHAIR: TRANSFERS: BED, CHAIR, WHEELCHAIR - STEP 1: Does the patient require assistance of a person or device, or need extra time with bed, chair, or whe elchair transfers? Yes. TRANSFERS: BED, CHAIR, WHEELCHAIR - STEP 2: Does the patient require the assistance of a helper? Yes. TRANSFERS: BED, CHAIR, WHEELCHAIR - STEP 3: How much assistance does the patient require from the helper? Lifting of the legs TRANSFERS: BED, CHAIR, WHEELCHAIR - STEP 4: How many legs does the patient require the helper to lift? both legs TRANSFERS: BED, CHAIR, WHEELCHAIR - SCORE: 3-MOD TRANSFERS: TOILET: TRANSFERS: TOILET - STEP 1: Does the patient require the assistance of a person or device, or need extra time with toilet transfe rs? Yes. TRANSFERS: TOILET - STEP 2: Does the patient require the assistance of a helper? Yes. TRANSFERS: TOILET - STEP 3: How much assistance does the patient require from the helper? Patient performs half or more of the tr ansferring tasks TRANSFERS: TOILET - STEP 4: Does the patient need only incidental help such as contact guard or steadying during toilet transfer? No. Patient needs more than incidental help TRANSFERS: TOILET - SCORE: 3-MOD TRANSFERS: SHOWER: Activity did not occur on this shift TRANSFERS: SHOWER - SCORE: 0-UNK TRANSFERS: TUB: Activity did not occur on this shift TRANSFERS: TUB - SCORE: 0-UNK LOCOMOTION: WALK: Activity did not occur on this shift LOCOMOTION: WALK - SCORE: 0-UNK LOCOMOTION: WHEELCHAIR: Activity did not occur on this shift LOCOMOTION: WHEELCHAIR - SCORE: 0-UNK COMPREHENSION: COMPREHENSION - SCORE: 0-UNK EXPRESSION EXPRESSION - SCORE: 0-UNK SOCIAL INTERACTION: SOCIAL INTERACTION - SCORE: 0-UNK PROBLEM SOLVING: PROBLEM SOLVING - SCORE: 0-UNK MEMORY: MEMORY - SCORE: 0-UNK SIGNATURE PANEL: The following modified sections: Eating - Score, Grooming - Score, Bathing - Score, Dressing - Upper Body - Score, Dressing - Lower Body - Score, Toileting - Score, Bladder Management - Score, Bowel Man agement - Score, Transfers: Bed, Chair, Wheelchair - Score, Transfers: Toilet - Score, Transfers: Iris wer - Score, Transfers: Tub - Score, Locomotion: Walk - Score, Locomotion: Wheelchair - Score, Compre hension - Score, Expression - Score, Social Interaction - Score, Problem Solving - Score, Memory - Sc ore were [electronically] signed by Nicolasa Joyner CNA on FriJan 29 2019 10:14:11 GMT-0600 ([place] Standard Time)
--- NOTE | 2019-01-29 10:33 | PN ---
Date of Progress Note: 01/29/2019 Subjective: The patient was seen this morning for followup. He was sitting in dining room in a wheelchair, eating breakfast, feeling fine. No new complaints or problems reported. Objective: Vital signs reviewed early this morning, around 5 o'clock in the morning. I did contact nurse and requested fingerstick blood sugar to be done at that particular time, as last 2 days in a row, the patient had hypoglycemia, and the patient actually was scheduled to have some blood drawn this morning, so we got blood drawn, and his blood sugar at that time was 35. This was around 5:30 a.m. today. Nurse was advised to give D50 IV x1 dose and check blood sugar 15 and 30 minutes after that, and the patient's blood sugar started to come up. When nurse woke up the patient to check his fingerstick blood sugar this morning, he was totally asymptomatic. When I saw him, he was feeling fine, and had no complaints at all. The patient did receive his sliding -scale insulin at bedtime yesterday. He did not get his Lantus insulin yesterday, which was discontinued, so he only got Lantus yesterday morning per order. For bedtime snack, unfortunately, the patient only got 2 Felix crackers in spite of my instruction for him to get more quantity of snack especially with protein. He did not receive that, so once again I have discussed with the nursing staff today to provide appropriate snack at bedtime for the patient. Laboratory Data: Labs today, sodium 139, potassium 3.3, chloride 99, bicarb 32 , BUN 102, creatinine 2.69, glucose 44. Impression: 1. Hypoglycemia. 2. Diabetes mellitus with labile blood sugar, uncontrolled. 3. Chronic kidney disease stage 4. 4. Coronary artery disease. 5. Hypertension. 6. Stroke. 7. Hypokalemia. Plan: Informed nursing staff to continue his morning dose of Lantus per order and sliding-scale that he gets before each meal and at bedtime. We will not give any insulin at bedtime, but we will continue sliding-scale insulin at breakfast, lunch, and dinner. The patient should get appropriate amount of snack at bedtime, and I have discussed with nursing staff today about that. Hopefully with all these changes though, our goal is to avoid any lot technician hypoglycemia problem. We will continue other medicines and physical therapy per guidance of Dr. Brewster. AUNG/MODL Voice ID: [id number] Report ID: [id number] MTDD
--- NOTE | 2019-01-29 14:35 | FAST ---
ENCOUNTER DATE AND TIME: 01/29/2019 08:00 (FASHION MERCHANDISER) NAME ALISSON HERNANDEZ DATE OF : 1930 DATE OF ADMISSION: 01/26/2019 13:45 (FASHION MERCHANDISER) PHONE: AGE: 88 N# [id number] GENDER: Male ENCOUNTER PHYSICIAN: Dr. Sabino Brewster M.D. ADMISSION DIAGNOSIS: - Stroke 01 - Right Body (Left Brain) (01.2) Acute left inferior cerebellar infarct. EATING: Activity did not occur on this shift EATING - SCORE: 0-UNK GROOMING: Activity did not occur on this shift GROOMING - SCORE: 0-UNK BATHING: Activity did not occur on this shift BATHING - SCORE: 0-UNK DRESSING - UPPER BODY: Activity did not occur on this shift Patient is not dressing in public clothing ARTICLES SCORE Total number of steps: 0 DRESSING - UPPER BODY - SCORE: 0-UNK DRESSING - LOWER BODY: Activity did not occur on this shift Patient is not dressing in public clothing ARTICLES SCORE Total number of steps: 0 DRESSING - LOWER BODY - SCORE: 0-UNK TOILETING: Activity did not occur on this shift TOILETING - SCORE: 0-UNK BLADDER MANAGEMENT: Activity did not occur on this shift BLADDER MANAGEMENT - SCORE: 7-IND BOWEL MANAGEMENT: Activity did not occur on this shift BOWEL MANAGEMENT - SCORE: 7-IND TRANSFERS: BED, CHAIR, WHEELCHAIR: TRANSFERS: BED, CHAIR, WHEELCHAIR - STEP 1: Does the patient require assistance of a person or device, or need extra time with bed, chair, or whe elchair transfers? Yes. TRANSFERS: BED, CHAIR, WHEELCHAIR - STEP 2: Does the patient require the assistance of a helper? Yes. TRANSFERS: BED, CHAIR, WHEELCHAIR - STEP 3: How much assistance does the patient require from the helper? Steadying/guiding assistance TRANSFERS: BED, CHAIR, WHEELCHAIR - SCORE: 4-MIN TRANSFERS: TOILET: Activity did not occur on this shift TRANSFERS: TOILET - SCORE: 0-UNK TRANSFERS: SHOWER: Activity did not occur on this shift TRANSFERS: SHOWER - SCORE: 0-UNK TRANSFERS: TUB: Activity did not occur on this shift TRANSFERS: TUB - SCORE: 0-UNK LOCOMOTION: WALK: LOCOMOTION: WALK - STEP 1: Does the patient need help from a person or device, or need extra time to walk 150 feet? Yes. LOCOMOTION: WALK - STEP 2: How much assistance does the patient require to walk a minimum of 150 feet? Patient walks less than 1 50 feet - but more than 50 feet - with the assistance of only one helper LOCOMOTION: WALK - SCORE: 2-MAX LOCOMOTION: WHEELCHAIR: Activity did not occur on this shift LOCOMOTION: WHEELCHAIR - SCORE: 0-UNK LOCOMOTION: STAIRS: Activity did not occur on this shift LOCOMOTION: STAIRS - SCORE: 0-UNK COMPREHENSION: COMPREHENSION - SCORE: 0-UNK EXPRESSION EXPRESSION - SCORE: 0-UNK SOCIAL INTERACTION: SOCIAL INTERACTION - SCORE: 0-UNK PROBLEM SOLVING: PROBLEM SOLVING - SCORE: 0-UNK MEMORY: MEMORY - SCORE: 0-UNK SIGNATURE PANEL: The following modified sections: Transfers: Bed, Chair, Wheelchair - Score, Transfers: Toilet - Score , Locomotion: Walk - Score, Locomotion: Wheelchair - Score, Locomotion: Stairs - Score were [electron ically] signed by Robert Peters PTA on FriJan 29 2019 14:34:35 GMT-0600 (Central Standard Time)
[2019-01-29] MEDS: TAMSULOSIN 0.4 MG SR CAP PO SCH (20:48)
[2019-01-29] MEDS: SIMVASTATIN 80 MG PO SCH (20:48)
[2019-01-29] MEDS: ENOXAPARIN 30 MG/0.3 ML SQ SCH (20:49)
--- NOTE | 2019-01-30 02:13 | FAST ---
SHIFT START DATE/TIME: 01/29/2019 19:00 (HAZARDOUS WASTE MANAGEMENT SPECIALIST) SHIFT END DATE/TIME: 01/30/2019 07:00 (HAZARDOUS WASTE MANAGEMENT SPECIALIST) NAME ALISSON HERNANDEZ DATE OF : 1930 DATE OF ADMISSION: 01/26/2019 13:45 (HAZARDOUS WASTE MANAGEMENT SPECIALIST) PHONE: AGE: 88 N# [id number] GENDER: Male ENCOUNTER PHYSICIAN: Dr. Sabino Brewster M.D. ADMISSION DIAGNOSIS: - Stroke 01 - Right Body (Left Brain) (01.2) Acute left inferior cerebellar infarct. EATING: Activity did not occur on this shift EATING - SCORE: 0-UNK GROOMING: Activity did not occur on this shift GROOMING - SCORE: 0-UNK BATHING: Activity did not occur on this shift BATHING - SCORE: 0-UNK DRESSING - UPPER BODY: Patient is not dressing in public clothing ARTICLES SCORE Total number of steps: 0 DRESSING - UPPER BODY - SCORE: 0-UNK DRESSING - LOWER BODY: Patient is not dressing in public clothing ARTICLES SCORE Total number of steps: 0 DRESSING - LOWER BODY - SCORE: 0-UNK TOILETING: TOILETING - STEP 1: Does the patient require the assistance of a person or device, or need extra time with toileting? Yes . TOILETING - STEP 2: Does the patient require the assistance of a helper? Yes. TOILETING - STEP 3: How much assistance does the patient require from the helper? Hands-on assistance from the helper TOILETING - STEP 4: Of the 3 tasks: 1) Adjusting clothing prior to use, 2) Cleansing of perineal area, 3) Adjusting clot gregor after use; How many tasks does the patient perform WITHOUT assistance of the helper? No tasks; hi lindquist performs all three tasks TOILETING - SCORE: 1-DEP BLADDER MANAGEMENT: BLADDER MANAGEMENT - STEP 1: Does the patient control the bladder completely and intentionally without equipment or devices or med ications, and is always continent? No. BLADDER MANAGEMENT - STEP 2: Does the patient require the assistance of a helper? Yes. BLADDER MANAGEMENT - STEP 3: How much assistance does the patient require from the helper? Only set-up of equipment - such as plac ing it within reach of the patient or emptying a device - to maintain either satisfactory voiding pat tern or managing an external device, such as an absorbent pad, ileal device, or catheter BLADDER MANAGEMENT - SCORE: 5-SUP BOWEL MANAGEMENT: Activity did not occur on this shift BOWEL MANAGEMENT - SCORE: 7-IND TRANSFERS: BED, CHAIR, WHEELCHAIR: TRANSFERS: BED, CHAIR, WHEELCHAIR - STEP 1: Does the patient require assistance of a person or device, or need extra time with bed, chair, or whe elchair transfers? Yes. TRANSFERS: BED, CHAIR, WHEELCHAIR - STEP 2: Does the patient require the assistance of a helper? Yes. TRANSFERS: BED, CHAIR, WHEELCHAIR - STEP 3: How much assistance does the patient require from the helper? Lifting of the legs TRANSFERS: BED, CHAIR, WHEELCHAIR - STEP 4: How many legs does the patient require the helper to lift? both legs TRANSFERS: BED, CHAIR, WHEELCHAIR - SCORE: 3-MOD TRANSFERS: TOILET: TRANSFERS: TOILET - STEP 1: Does the patient require the assistance of a person or device, or need extra time with toilet transfe rs? Yes. TRANSFERS: TOILET - STEP 2: Does the patient require the assistance of a helper? Yes. TRANSFERS: TOILET - STEP 3: How much assistance does the patient require from the helper? Patient performs half or more of the tr ansferring tasks TRANSFERS: TOILET - STEP 4: Does the patient need only incidental help such as contact guard or steadying during toilet transfer? No. Patient needs more than incidental help TRANSFERS: TOILET - SCORE: 3-MOD TRANSFERS: SHOWER: Activity did not occur on this shift TRANSFERS: SHOWER - SCORE: 0-UNK TRANSFERS: TUB: Activity did not occur on this shift TRANSFERS: TUB - SCORE: 0-UNK LOCOMOTION: WALK: Activity did not occur on this shift LOCOMOTION: WALK - SCORE: 0-UNK LOCOMOTION: WHEELCHAIR: Activity did not occur on this shift LOCOMOTION: WHEELCHAIR - SCORE: 0-UNK COMPREHENSION: COMPREHENSION: TYPE: Both COMPREHENSION - STEP 1: Does the patient require help from a person or device, or need extra time to understand complex and a bstract ideas (such as current events, finances, discharge planning, medical issues, relationships, e tc)? Yes. COMPREHENSION - STEP 2: Does the patient require help to understand questions or statements about basic needs or ideas (such as hunger, thirst, sleep, safety, daily schedule, room location, or discomfort) half or more of the t ld? No. COMPREHENSION - STEP 3: How often does the patient need help to understand directions and conversation about basic needs? Les s than 10% of the time COMPREHENSION - SCORE: 5-SUP EXPRESSION EXPRESSION: TYPE: Both EXPRESSION - STEP 1: Does the patient require help from a person or device, or need extra time expressing complex and abst ract ideas (such as current events, finances, discharge planning, medical issues, relationships, etc) ? Yes. EXPRESSION - STEP 2: Does the patient require help to express basic necessities or ideas (such as hunger, thirst, sleep, s afety, daily schedule, room location, or discomfort) half or more of the time? No. EXPRESSION - STEP 3: How often does the patient need help to express directions and conversation about basic needs? Less t brady 10% of the time EXPRESSION - SCORE: 5-SUP SOCIAL INTERACTION: SOCIAL INTERACTION - STEP 1: Does the patient require a helper to interact with others in social and therapeutic situations? No. SOCIAL INTERACTION - STEP 2: Does the patient need extra time in social situations, OR does s/he interact with staff, other patien ts, and family members ONLY in structured environments, OR does s/he require medication for social in teraction? Yes, patient needs extra time SOCIAL INTERACTION - SCORE: 6-SINGH PROBLEM SOLVING: PROBLEM SOLVING - STEP 1: Does the patient need help from a person or device, or need extra time to solve complex problems such as managing a checking account or confronting interpersonal problems? Yes. PROBLEM SOLVING - STEP 2: Does the patient solve basic routine problems half or more of the time? Yes. PROBLEM SOLVING - STEP 3: How often does the patient need help to solve basic routine problems? 10%-24% of the time PROBLEM SOLVING - SCORE: 4-MIN MEMORY: MEMORY - STEP 1: Does the patient need help from a person or device, or need extra time to remember frequently encount ered people, daily routines, and executing requests? Yes. MEMORY - STEP 2: How often does the patient need help to remember frequently encountered people, daily routines, and e xecuting requests? 10% - 24% of the time MEMORY - SCORE: 4-MIN
[2019-01-30 02:35] LABS: Phosphorus 3.9 mg/dL (2.5-4.9); Potassium 3.6 mmol/L (3.5-5.1)
[2019-01-30] MEDS: METOPROLOL XL 50 MG TAB PO SCH ×2 (05:29→17:13)
[2019-01-30] MEDS: LEVOTHYROXINE 88 MCG PO SCH (06:30)
[2019-01-30] MEDS: LEVOTHYROXINE 200 MCG PO SCH (06:44)
[2019-01-30] MEDS: INSULIN -REGULAR HUMAN 50 UNIT/0.5 ML ML SQ SCH ×4 (07:30→20:40)
[2019-01-30] MEDS: MULTIVITAMIN TAB PO SCH (07:53)
[2019-01-30] MEDS: FOLIC ACID 1 MG TABLET PO SCH (07:53)
[2019-01-30] MEDS: CLOPIDOGREL 75 MG TABLET PO SCH (07:53)
[2019-01-30] MEDS: ISOSORBIDE MONO SR 30 MG TAB PO SCH (07:54)
[2019-01-30] MEDS: INSULIN GLARGINE 100 UNITS/ML SQ SCH (07:57)
[2019-01-30] MEDS: ASPIRIN EC 81 MG TAB PO SCH (07:57)
[2019-01-30] MEDS: BUMETANIDE 2 MG TABLET PO SCH (10:09)
--- NOTE | 2019-01-30 13:00 | PN ---
Date of Progress Note: 01/30/2019 Subjective: The patient was seen this morning for followup. No new complaints or problems reported by the patient. Sitting in chair. Denied any complaints. His fingerstick blood sugar readings revi ewed. The patient's blood sugar was 111 around 2 a.m. last night and then around 5 a.m. it dropped d own to 61. Upon further questioning with the nursing staff, she informed me that the patient did not get high protein snack that I had requested for last 3 days in a row now, he did not get that last n ight either, and I also requested dietitian to provide appropriate recommendation for such high-prote in snack at bedtime, and nurses informed me that dietitian did not visit the patient or did not provi de any recommendation to nursing staff. I have advised nurse to make sure that the patient gets this high-protein snack tonight and also to have patient's family that I have informed the patient that t hey need to bring some peanuts from home, and I would like for him to eat peanuts at bedtime. What I am trying to achieve is avoid hand sander hypoglycemia by giving him high-protein snack at bedtime . He did not get any insulin last night at bedtime. Objective: Vital Signs: Reviewed. HEENT: Unremarkable. Lungs: Clear to auscultation. Heart: Sounds normal. Abdomen: Soft. Bowel sounds normal. No guarding, rigidity, tenderness, distention. Extremities: No leg edema. Laboratory Data: Sodium 141, potassium 3.6, chloride 104, bicarb 29, BUN 95, creatinine 2.49, glucos e 111. Impression: 1.Hypoglycemia. 2.Diabetes mellitus, type 2, uncontrolled. 3.Chronic kidney disease stage 4. 4.Coronary artery disease. 5.Stroke. 6.Hypertension. Plan: We will go ahead and continue current insulin, long-acting insulin in the morning and sliding scale at breakfast, lunch, and dinner time. The patient will not get any sliding scale insulin dose at bedtime, and will not get any long-acting insulin at bedtime. The patient hopefully will receive high-protein snack per order tonight, and I have advised him to have family bring some peanuts from h ome, so that way he can eat some peanuts at bedtime as well. I believe by doing so we will be able t o avoid hand sander hypoglycemia problem. If we can avoid that, then I really do not see any need for him to consider insulin pump as we were thinking a week-2 weeks ago. We will be able to continue to make adjustment on long-acting insulin dose that he gets in the morning time over a period of michael e. AUNG/MODL Voice ID: [id number] Report ID: [id number]
--- NOTE | 2019-01-30 15:31 | FAST ---
SHIFT START DATE/TIME: 01/30/2019 07:00 (BROADCAST METEOROLOGIST) SHIFT END DATE/TIME: 01/30/2019 19:00 (BROADCAST METEOROLOGIST) NAME ALISSON HERNANDEZ DATE OF : 1930 DATE OF ADMISSION: 01/26/2019 13:45 (BROADCAST METEOROLOGIST) PHONE: AGE: 88 N# [id number] GENDER: Male ENCOUNTER PHYSICIAN: Dr. Sabino Brewster M.D. ADMISSION DIAGNOSIS: - Stroke 01 - Right Body (Left Brain) (01.2) Acute left inferior cerebellar infarct. EATING: EATING - STEP 1: Does the patient require the assistance of a person or device, or need extra time when eating? Yes. EATING - STEP 2: Does the patient require the assistance of a helper? Yes. EATING - STEP 3: Does the patient perform half or more of the eating tasks? Yes. EATING - STEP 4: Does the patient need only supervision, cuing, coaxing OR help to apply an orthosis OR help to cut fo od, open containers, pour liquids, or butter bread? Yes. EATING - SCORE: 5-SUP GROOMING: Oral care Wash, rinse, and dry face Wash, rinse, and dry hands GROOMING - STEP 1: Does the patient require the assistance of a person or device, or need extra time when grooming? Yes. GROOMING - STEP 2: Does the patient require the assistance of a helper? Yes. GROOMING - STEP 3: How much assistance does the patient require from the helper? Only prior equipment preparation/set up from the helper GROOMING - SCORE: 5-SUP BATHING: Activity did not occur on this shift BATHING - SCORE: 0-UNK DRESSING - UPPER BODY: Activity did not occur on this shift ARTICLES SCORE Total number of steps: 0 DRESSING - UPPER BODY - SCORE: 0-UNK DRESSING - LOWER BODY: Activity did not occur on this shift ARTICLES SCORE Total number of steps: 0 DRESSING - LOWER BODY - SCORE: 0-UNK TOILETING: TOILETING - STEP 1: Does the patient require the assistance of a person or device, or need extra time with toileting? Yes . TOILETING - STEP 2: Does the patient require the assistance of a helper? Yes. TOILETING - STEP 3: How much assistance does the patient require from the helper? Hands-on assistance from the helper TOILETING - STEP 4: Of the 3 tasks: 1) Adjusting clothing prior to use, 2) Cleansing of perineal area, 3) Adjusting clot gregor after use; How many tasks does the patient perform WITHOUT assistance of the helper? Three tasks with steadying assistance from the helper TOILETING - SCORE: 4-MIN TOILETING - COMMENTS: Pt holds grab bar and supports himself as he pulls his clothes up BLADDER MANAGEMENT: BLADDER MANAGEMENT - STEP 1: Does the patient control the bladder completely and intentionally without equipment or devices or med ications, and is always continent? No. BLADDER MANAGEMENT - STEP 2: Does the patient require the assistance of a helper? Yes. BLADDER MANAGEMENT - STEP 3: How much assistance does the patient require from the helper? Only set-up of equipment - such as plac ing it within reach of the patient or emptying a device - to maintain either satisfactory voiding pat tern or managing an external device, such as an absorbent pad, ileal device, or catheter BLADDER MANAGEMENT - SCORE: 5-SUP BLADDER MANAGEMENT - FREQUENCY OF ACCIDENTS: BLADDER MANAGEMENT(FA) - STEP 1: How many accidents has the patient had during the current shift? 0 BOWEL MANAGEMENT: BOWEL MANAGEMENT - STEP 1: Does the patient control bowels completely and intentionally without equipment devices or medications AND is always continent? No. BOWEL MANAGEMENT - STEP 2: Does the patient require the assistance of a helper? No, patient requires medication for control such as stool softeners, suppositories, laxatives, enemas, or OTC medications BOWEL MANAGEMENT - SCORE: 6-SINGH BOWEL MANAGEMENT - FREQUENCY OF ACCIDENTS: BOWEL MANAGEMENT(FA) - STEP 1: How many accidents has the patient had during the current shift? 0 TRANSFERS: BED, CHAIR, WHEELCHAIR: TRANSFERS: BED, CHAIR, WHEELCHAIR - STEP 1: Does the patient require assistance of a person or device, or need extra time with bed, chair, or whe elchair transfers? Yes. TRANSFERS: BED, CHAIR, WHEELCHAIR - STEP 2: Does the patient require the assistance of a helper? Yes. TRANSFERS: BED, CHAIR, WHEELCHAIR - STEP 3: How much assistance does the patient require from the helper? Lifting of the patient TRANSFERS: BED, CHAIR, WHEELCHAIR - STEP 4: Does the helper lift the patient ONLY up? ONLY down? Up AND Down? Up AND Down. TRANSFERS: BED, CHAIR, WHEELCHAIR - SCORE: 2-MAX TRANSFERS: TOILET: TRANSFERS: TOILET - STEP 1: Does the patient require the assistance of a person or device, or need extra time with toilet transfe rs? Yes. TRANSFERS: TOILET - STEP 2: Does the patient require the assistance of a helper? Yes. TRANSFERS: TOILET - STEP 3: How much assistance does the patient require from the helper? Patient performs less than half of the transferring tasks TRANSFERS: TOILET - STEP 4: Does the patient require total assistance for the toilet transfer such as the helper doing basically all the lifting? No. TRANSFERS: TOILET - SCORE: 2-MAX TRANSFERS: SHOWER: Activity did not occur on this shift TRANSFERS: SHOWER - SCORE: 0-UNK TRANSFERS: TUB: Activity did not occur on this shift TRANSFERS: TUB - SCORE: 0-UNK LOCOMOTION: WALK: Activity did not occur on this shift LOCOMOTION: WALK - SCORE: 0-UNK LOCOMOTION: WHEELCHAIR: Activity did not occur on this shift LOCOMOTION: WHEELCHAIR - SCORE: 0-UNK COMPREHENSION: COMPREHENSION: TYPE: Both COMPREHENSION - STEP 1: Does the patient require help from a person or device, or need extra time to understand complex and a bstract ideas (such as current events, finances, discharge planning, medical issues, relationships, e tc)? Yes. COMPREHENSION - STEP 2: Does the patient require help to understand questions or statements about basic needs or ideas (such as hunger, thirst, sleep, safety, daily schedule, room location, or discomfort) half or more of the t ld? No. COMPREHENSION - STEP 3: How often does the patient need help to understand directions and conversation about basic needs? 10% - 24% of the time COMPREHENSION - SCORE: 4-MIN EXPRESSION EXPRESSION: TYPE: Both EXPRESSION - STEP 1: Does the patient require help from a person or device, or need extra time expressing complex and abst ract ideas (such as current events, finances, discharge planning, medical issues, relationships, etc) ? Yes. EXPRESSION - STEP 2: Does the patient require help to express basic necessities or ideas (such as hunger, thirst, sleep, s afety, daily schedule, room location, or discomfort) half or more of the time? No. EXPRESSION - STEP 3: How often does the patient need help to express directions and conversation about basic needs? 10-24% of the time EXPRESSION - SCORE: 4-MIN SOCIAL INTERACTION: SOCIAL INTERACTION - STEP 1: Does the patient require a helper to interact with others in social and therapeutic situations? No. SOCIAL INTERACTION - STEP 2: Does the patient need extra time in social situations, OR does s/he interact with staff, other patien ts, and family members ONLY in structured environments, OR does s/he require medication for social in teraction? Yes, patient needs extra time SOCIAL INTERACTION - SCORE: 6-SINGH PROBLEM SOLVING: PROBLEM SOLVING - STEP 1: Does the patient need help from a person or device, or need extra time to solve complex problems such as managing a checking account or confronting interpersonal problems? Yes. PROBLEM SOLVING - STEP 2: Does the patient solve basic routine problems half or more of the time? Yes. PROBLEM SOLVING - STEP 3: How often does the patient need help to solve basic routine problems? 10%-24% of the time PROBLEM SOLVING - SCORE: 4-MIN MEMORY: MEMORY - STEP 1: Does the patient need help from a person or device, or need extra time to remember frequently encount ered people, daily routines, and executing requests? Yes. MEMORY - STEP 2: How often does the patient need help to remember frequently encountered people, daily routines, and e xecuting requests? 10% - 24% of the time MEMORY - SCORE: 4-MIN SIGNATURE PANEL: The following modified sections: Eating - Score, Grooming - Score, Bathing - Score, Dressing - Upper Body - Score, Dressing - Lower Body - Score, Toileting - Score, Toileting - Comments:, Bladder Manage ment - Score, Bowel Management - Score, Transfers: Bed, Chair, Wheelchair - Score, Transfers: Toilet - Score, Transfers: Shower - Score, Transfers: Tub - Score, Locomotion: Walk - Score, Locomotion: Whe elchair - Score, Comprehension - Score, Expression - Score, Social Interaction - Score, Problem Solvi ng - Score, Memory - Score were [electronically] signed by Jennifer Adame C.N.A. on FriJan 30 2019 15 :31:14 GMT-0600 (Central Standard Time)
[2019-01-30] MEDS: ENOXAPARIN 30 MG/0.3 ML SQ SCH (20:39)
[2019-01-30] MEDS: SIMVASTATIN 80 MG PO SCH (20:39)
[2019-01-30] MEDS: TAMSULOSIN 0.4 MG SR CAP PO SCH (20:39)
--- NOTE | 2019-01-31 02:49 | FAST ---
SHIFT START DATE/TIME: 01/30/2019 19:00 (HOUSE REPAIRER) SHIFT END DATE/TIME: 01/31/2019 07:00 (HOUSE REPAIRER) NAME ALISSON HERNANDEZ DATE OF : 1930 DATE OF ADMISSION: 01/26/2019 13:45 (HOUSE REPAIRER) PHONE: AGE: 88 N# [id number] GENDER: Male ENCOUNTER PHYSICIAN: Dr. Sabino Brewster M.D. ADMISSION DIAGNOSIS: - Stroke 01 - Right Body (Left Brain) (01.2) Acute left inferior cerebellar infarct. EATING: Activity did not occur on this shift EATING - SCORE: 0-UNK GROOMING: Activity did not occur on this shift GROOMING - SCORE: 0-UNK BATHING: Activity did not occur on this shift BATHING - SCORE: 0-UNK DRESSING - UPPER BODY: Patient is not dressing in public clothing ARTICLES SCORE Total number of steps: 0 DRESSING - UPPER BODY - SCORE: 0-UNK DRESSING - LOWER BODY: Patient is not dressing in public clothing ARTICLES SCORE Total number of steps: 0 DRESSING - LOWER BODY - SCORE: 0-UNK TOILETING: TOILETING - STEP 1: Does the patient require the assistance of a person or device, or need extra time with toileting? Yes . TOILETING - STEP 2: Does the patient require the assistance of a helper? Yes. TOILETING - STEP 3: How much assistance does the patient require from the helper? Hands-on assistance from the helper TOILETING - STEP 4: Of the 3 tasks: 1) Adjusting clothing prior to use, 2) Cleansing of perineal area, 3) Adjusting clot gregor after use; How many tasks does the patient perform WITHOUT assistance of the helper? No tasks; hi lindquist performs all three tasks TOILETING - SCORE: 1-DEP BLADDER MANAGEMENT: BLADDER MANAGEMENT - STEP 1: Does the patient control the bladder completely and intentionally without equipment or devices or med ications, and is always continent? No. BLADDER MANAGEMENT - STEP 2: Does the patient require the assistance of a helper? Yes. BLADDER MANAGEMENT - STEP 3: How much assistance does the patient require from the helper? Only set-up of equipment - such as plac ing it within reach of the patient or emptying a device - to maintain either satisfactory voiding pat tern or managing an external device, such as an absorbent pad, ileal device, or catheter BLADDER MANAGEMENT - SCORE: 5-SUP BOWEL MANAGEMENT: BOWEL MANAGEMENT - STEP 1: Does the patient control bowels completely and intentionally without equipment devices or medications AND is always continent? No. BOWEL MANAGEMENT - STEP 2: Does the patient require the assistance of a helper? No, patient requires medication for control such as stool softeners, suppositories, laxatives, enemas, or OTC medications BOWEL MANAGEMENT - SCORE: 6-SINGH TRANSFERS: BED, CHAIR, WHEELCHAIR: TRANSFERS: BED, CHAIR, WHEELCHAIR - STEP 1: Does the patient require assistance of a person or device, or need extra time with bed, chair, or whe elchair transfers? Yes. TRANSFERS: BED, CHAIR, WHEELCHAIR - STEP 2: Does the patient require the assistance of a helper? Yes. TRANSFERS: BED, CHAIR, WHEELCHAIR - STEP 3: How much assistance does the patient require from the helper? Lifting of the legs TRANSFERS: BED, CHAIR, WHEELCHAIR - STEP 4: How many legs does the patient require the helper to lift? both legs TRANSFERS: BED, CHAIR, WHEELCHAIR - SCORE: 3-MOD TRANSFERS: TOILET: TRANSFERS: TOILET - STEP 1: Does the patient require the assistance of a person or device, or need extra time with toilet transfe rs? Yes. TRANSFERS: TOILET - STEP 2: Does the patient require the assistance of a helper? Yes. TRANSFERS: TOILET - STEP 3: How much assistance does the patient require from the helper? Patient performs half or more of the tr ansferring tasks TRANSFERS: TOILET - STEP 4: Does the patient need only incidental help such as contact guard or steadying during toilet transfer? No. Patient needs more than incidental help TRANSFERS: TOILET - SCORE: 3-MOD TRANSFERS: SHOWER: Activity did not occur on this shift TRANSFERS: SHOWER - SCORE: 0-UNK TRANSFERS: TUB: Activity did not occur on this shift TRANSFERS: TUB - SCORE: 0-UNK LOCOMOTION: WALK: Activity did not occur on this shift LOCOMOTION: WALK - SCORE: 0-UNK LOCOMOTION: WHEELCHAIR: Activity did not occur on this shift LOCOMOTION: WHEELCHAIR - SCORE: 0-UNK COMPREHENSION: COMPREHENSION: TYPE: Both COMPREHENSION - STEP 1: Does the patient require help from a person or device, or need extra time to understand complex and a bstract ideas (such as current events, finances, discharge planning, medical issues, relationships, e tc)? Yes. COMPREHENSION - STEP 2: Does the patient require help to understand questions or statements about basic needs or ideas (such as hunger, thirst, sleep, safety, daily schedule, room location, or discomfort) half or more of the t ld? No. COMPREHENSION - STEP 3: How often does the patient need help to understand directions and conversation about basic needs? Les s than 10% of the time COMPREHENSION - SCORE: 5-SUP EXPRESSION EXPRESSION: TYPE: Both EXPRESSION - STEP 1: Does the patient require help from a person or device, or need extra time expressing complex and abst ract ideas (such as current events, finances, discharge planning, medical issues, relationships, etc) ? No. EXPRESSION - STEP 2: Does the patient need extra time, require an assistive device (such as augmentive communication syste m or a communication board), OR does s/he have mild difficulty expressing complex and abstract ideas (including mild dysarthria or mild word-find problems)? Yes. EXPRESSION - SCORE: 6-SINGH SOCIAL INTERACTION: SOCIAL INTERACTION - STEP 1: Does the patient require a helper to interact with others in social and therapeutic situations? No. SOCIAL INTERACTION - STEP 2: Does the patient need extra time in social situations, OR does s/he interact with staff, other patien ts, and family members ONLY in structured environments, OR does s/he require medication for social in teraction? Yes, patient needs extra time SOCIAL INTERACTION - SCORE: 6-SINGH PROBLEM SOLVING: PROBLEM SOLVING - STEP 1: Does the patient need help from a person or device, or need extra time to solve complex problems such as managing a checking account or confronting interpersonal problems? Yes. PROBLEM SOLVING - STEP 2: Does the patient solve basic routine problems half or more of the time? Yes. PROBLEM SOLVING - STEP 3: How often does the patient need help to solve basic routine problems? Less than 10% of the time PROBLEM SOLVING - SCORE: 5-SUP MEMORY: MEMORY - STEP 1: Does the patient need help from a person or device, or need extra time to remember frequently encount ered people, daily routines, and executing requests? No. MEMORY - STEP 2: Does the patient have slight difficulty recognizing frequently encountered people, daily routines, or executing requests without the need for repetition or using self-initiated or environmental cues to remember? Yes. MEMORY - SCORE: 6-SINGH SIGNATURE PANEL: The following modified sections: Eating - Score, Grooming - Score, Dressing - Upper Body - Score, Ebn ssing - Lower Body - Score, Toileting - Score, Bladder Management - Score, Bowel Management - Score, Transfers: Bed, Chair, Wheelchair - Score, Transfers: Toilet - Score, Transfers: Shower - Score, [place]ino sfers: Tub - Score, Locomotion: Walk - Score, Locomotion: Wheelchair - Score, Comprehension - Score, Expression - Score, Social Interaction - Score, Problem Solving - Score, Memory - Score were [electro nically] signed by Margi Collier CNA on FriJan 31 2019 02:48:28 GMT-0600 (Central Standard Time)
[2019-01-31] MEDS: METOPROLOL XL 50 MG TAB PO SCH ×2 (05:29→17:02)
[2019-01-31] MEDS: LEVOTHYROXINE 88 MCG PO SCH (06:58)
[2019-01-31] MEDS: LEVOTHYROXINE 200 MCG PO SCH (06:59)
[2019-01-31 07:03] VITALS: BMI 32.1
[2019-01-31 07:34] LABS: Albumin 2.8 g/dL (3.4-5.0); Phosphorus 2.9 mg/dL (2.5-4.9)
[2019-01-31] MEDS: INSULIN -REGULAR HUMAN 50 UNIT/0.5 ML ML SQ SCH ×4 (08:17→20:26)
[2019-01-31] MEDS: INSULIN GLARGINE 100 UNITS/ML SQ SCH (08:17)
[2019-01-31] MEDS: MULTIVITAMIN TAB PO SCH (08:18)
[2019-01-31] MEDS: CLOPIDOGREL 75 MG TABLET PO SCH (08:18)
[2019-01-31] MEDS: FOLIC ACID 1 MG TABLET PO SCH (08:18)
[2019-01-31] MEDS: BUMETANIDE 2 MG TABLET PO SCH (08:19)
[2019-01-31] MEDS: ISOSORBIDE MONO SR 30 MG TAB PO SCH (08:19)
[2019-01-31] MEDS: ASPIRIN EC 81 MG TAB PO SCH (08:20)
--- NOTE | 2019-01-31 15:08 | FAST ---
SHIFT START DATE/TIME: 01/31/2019 07:00 (ENDOCRINOLOGY NURSE) SHIFT END DATE/TIME: 01/31/2019 19:00 (ENDOCRINOLOGY NURSE) NAME ALISSON HERNANDEZ DATE OF : 1930 DATE OF ADMISSION: 01/26/2019 13:45 (ENDOCRINOLOGY NURSE) PHONE: AGE: 88 N# [id number] GENDER: Male ENCOUNTER PHYSICIAN: Dr. Sabino Brewster M.D. ADMISSION DIAGNOSIS: - Stroke 01 - Right Body (Left Brain) (01.2) Acute left inferior cerebellar infarct. EATING: EATING - STEP 1: Does the patient require the assistance of a person or device, or need extra time when eating? Yes. EATING - STEP 2: Does the patient require the assistance of a helper? Yes. EATING - STEP 3: Does the patient perform half or more of the eating tasks? Yes. EATING - STEP 4: Does the patient need only supervision, cuing, coaxing OR help to apply an orthosis OR help to cut fo od, open containers, pour liquids, or butter bread? Yes. EATING - SCORE: 5-SUP GROOMING: Comb/brush hair Oral care Wash, rinse, and dry face Wash, rinse, and dry hands GROOMING - STEP 1: Does the patient require the assistance of a person or device, or need extra time when grooming? Yes. GROOMING - STEP 2: Does the patient require the assistance of a helper? Yes. GROOMING - STEP 3: How much assistance does the patient require from the helper? Only prior equipment preparation/set up from the helper GROOMING - SCORE: 5-SUP BATHING: Activity did not occur on this shift BATHING - SCORE: 0-UNK DRESSING - UPPER BODY: T-shirt/pullover shirt (four steps) ARTICLES SCORE Total number of steps: 4 DRESSING - UPPER BODY - STEP 1: Does the patient require help from a person or device, or need extra time when dressing above the [address]? Yes. DRESSING - UPPER BODY - STEP 2: Does the patient require the assistance of a helper? Yes. DRESSING - UPPER BODY - STEP 3: Does the helper touch the patient while dressing? Yes. DRESSING - UPPER BODY - STEP 4: How many of the total steps does the patient complete on his/her own? 2 DRESSING - UPPER BODY - SCORE: 3-MOD DRESSING - LOWER BODY: Elastic waist pants (three steps) Sock - Left foot (one step) Sock - Right foot (one step) Underwear (three steps) ARTICLES SCORE Total number of steps: 8 DRESSING - LOWER BODY - STEP 1: Does the patient require help from a person or device, or need extra time when dressing below the [address]? Yes. DRESSING - LOWER BODY - STEP 2: Does the patient require the assistance of a helper? Yes. DRESSING - LOWER BODY - STEP 3: Does the helper touch the patient while dressing? Yes. DRESSING - LOWER BODY - STEP 4: How many of the total steps does the patient complete on his/her own? 6 DRESSING - LOWER BODY - SCORE: 4-MIN DRESSING - LOWER BODY - COMMENTS: [place] holds pt briefs and pants-pt threads feet into his brief and pants- pt holds grab bar and aiden ds up- pt leans to left- helper holds pt clothes and pulls clothes up over pt hips and secures clothe s TOILETING: TOILETING - STEP 1: Does the patient require the assistance of a person or device, or need extra time with toileting? Yes . TOILETING - STEP 2: Does the patient require the assistance of a helper? Yes. TOILETING - STEP 3: How much assistance does the patient require from the helper? Hands-on assistance from the helper TOILETING - STEP 4: Of the 3 tasks: 1) Adjusting clothing prior to use, 2) Cleansing of perineal area, 3) Adjusting clot gregor after use; How many tasks does the patient perform WITHOUT assistance of the helper? No tasks; h elper performs all three tasks TOILETING - SCORE: 1-DEP BLADDER MANAGEMENT: BLADDER MANAGEMENT - STEP 1: Does the patient control the bladder completely and intentionally without equipment or devices or med ications, and is always continent? No. BLADDER MANAGEMENT - STEP 2: Does the patient require the assistance of a helper? Yes. BLADDER MANAGEMENT - STEP 3: How much assistance does the patient require from the helper? Only set-up of equipment - such as plac ing it within reach of the patient or emptying a device - to maintain either satisfactory voiding pat tern or managing an external device, such as an absorbent pad, ileal device, or catheter BLADDER MANAGEMENT - SCORE: 5-SUP BLADDER MANAGEMENT - FREQUENCY OF ACCIDENTS: BLADDER MANAGEMENT(FA) - STEP 1: How many accidents has the patient had during the current shift? 0 BOWEL MANAGEMENT: Activity did not occur on this shift BOWEL MANAGEMENT - SCORE: 7-IND BOWEL MANAGEMENT - FREQUENCY OF ACCIDENTS: BOWEL MANAGEMENT(FA) - STEP 1: How many accidents has the patient had during the current shift? 0 TRANSFERS: BED, CHAIR, WHEELCHAIR: TRANSFERS: BED, CHAIR, WHEELCHAIR - STEP 1: Does the patient require assistance of a person or device, or need extra time with bed, chair, or whe elchair transfers? Yes. TRANSFERS: BED, CHAIR, WHEELCHAIR - STEP 2: Does the patient require the assistance of a helper? Yes. TRANSFERS: BED, CHAIR, WHEELCHAIR - STEP 3: How much assistance does the patient require from the helper? Steadying/guiding assistance TRANSFERS: BED, CHAIR, WHEELCHAIR - SCORE: 4-MIN TRANSFERS: TOILET: TRANSFERS: TOILET - STEP 1: Does the patient require the assistance of a person or device, or need extra time with toilet transfe rs? Yes. TRANSFERS: TOILET - STEP 2: Does the patient require the assistance of a helper? Yes. TRANSFERS: TOILET - STEP 3: How much assistance does the patient require from the helper? Patient performs less than half of the transferring tasks TRANSFERS: TOILET - STEP 4: Does the patient require total assistance for the toilet transfer such as the helper doing basically all the lifting? No. TRANSFERS: TOILET - SCORE: 2-MAX TRANSFERS: SHOWER: Activity did not occur on this shift TRANSFERS: SHOWER - SCORE: 0-UNK TRANSFERS: TUB: Activity did not occur on this shift TRANSFERS: TUB - SCORE: 0-UNK LOCOMOTION: WALK: Activity did not occur on this shift LOCOMOTION: WALK - SCORE: 0-UNK LOCOMOTION: WHEELCHAIR: Activity did not occur on this shift LOCOMOTION: WHEELCHAIR - SCORE: 0-UNK COMPREHENSION: COMPREHENSION: TYPE: Both COMPREHENSION - STEP 1: Does the patient require help from a person or device, or need extra time to understand complex and a bstract ideas (such as current events, finances, discharge planning, medical issues, relationships, e tc)? Yes. COMPREHENSION - STEP 2: Does the patient require help to understand questions or statements about basic needs or ideas (such as hunger, thirst, sleep, safety, daily schedule, room location, or discomfort) half or more of the t ld? No. COMPREHENSION - STEP 3: How often does the patient need help to understand directions and conversation about basic needs? 10% - 24% of the time COMPREHENSION - SCORE: 4-MIN EXPRESSION EXPRESSION: TYPE: Both EXPRESSION - STEP 1: Does the patient require help from a person or device, or need extra time expressing complex and abst ract ideas (such as current events, finances, discharge planning, medical issues, relationships, etc) ? Yes. EXPRESSION - STEP 2: Does the patient require help to express basic necessities or ideas (such as hunger, thirst, sleep, s afety, daily schedule, room location, or discomfort) half or more of the time? No. EXPRESSION - STEP 3: How often does the patient need help to express directions and conversation about basic needs? 10-24% of the time EXPRESSION - SCORE: 4-MIN SOCIAL INTERACTION: SOCIAL INTERACTION - STEP 1: Does the patient require a helper to interact with others in social and therapeutic situations? No. SOCIAL INTERACTION - STEP 2: Does the patient need extra time in social situations, OR does s/he interact with staff, other patien ts, and family members ONLY in structured environments, OR does s/he require medication for social in teraction? Yes, patient needs extra time SOCIAL INTERACTION - SCORE: 6-SINGH PROBLEM SOLVING: PROBLEM SOLVING - STEP 1: Does the patient need help from a person or device, or need extra time to solve complex problems such as managing a checking account or confronting interpersonal problems? Yes. PROBLEM SOLVING - STEP 2: Does the patient solve basic routine problems half or more of the time? Yes. PROBLEM SOLVING - STEP 3: How often does the patient need help to solve basic routine problems? 10%-24% of the time PROBLEM SOLVING - SCORE: 4-MIN MEMORY: MEMORY - STEP 1: Does the patient need help from a person or device, or need extra time to remember frequently encount ered people, daily routines, and executing requests? Yes. MEMORY - STEP 2: How often does the patient need help to remember frequently encountered people, daily routines, and e xecuting requests? 10% - 24% of the time MEMORY - SCORE: 4-MIN SIGNATURE PANEL: The following modified sections: Eating - Score, Grooming - Score, Bathing - Score, Dressing - Upper Body - Score, Dressing - Lower Body - Score, Dressing - Lower Body - Comments:, Toileting - Score, To ileting - Comments:, Bladder Management - Score, Bowel Management - Score, Transfers: Bed, Chair, Whe elchair - Score, Transfers: Toilet - Score, Transfers: Shower - Score, Transfers: Tub - Score, Locomo tion: Walk - Score, Locomotion: Wheelchair - Score, Comprehension - Score, Expression - Score, Social Interaction - Score, Problem Solving - Score, Memory - Score were [electronically] signed by Jennifer Schreiber [email or web address] on FriJan 31 2019 15:07:44 GMT-0600 (Central Standard Time)
--- NOTE | 2019-01-31 15:29 | PN ---
Date of Progress Note: 01/31/2019 Subjective: The patient was seen this morning for followup. Objective: General: He was lying in bed, not in any distress. Vital Signs: Reviewed. HEENT: Unremarkable. Lungs: Clear to auscultation. Heart: Sounds normal. Abdomen: Soft. Bowel sounds normal. No guarding, rigidity, tenderness, or distention. Extremities: No leg edema. Laboratory Data: Sodium 138, potassium 4, chloride 102, bicarb 28, BUN 84, creatinine 2.48, glucose 271. Impression: 1.Diabetes mellitus, uncontrolled. 2.Chronic kidney disease, stage 4. 3.Stroke. 4.Hypertension. 5.Coronary artery disease. Plan: The patient's blood sugar this morning was not low like what we have seen in last 3 days or so . 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 So, I have encouraged him to continue to eat snack at bedtime, and now we can hopef ully continue to manage diabetes with his long-acting insulin that he takes in the morning time. We will not give any bedtime insulin at this point. Continue other current medical management. I will see him tomorrow for followup. AUNG/MODL Voice ID: [id number] Report ID: [id number]
--- NOTE | 2019-01-31 15:56 | PN ---
Date of Progress Note: 01/31/2019 Subjective: The patient doing much better, participating in physical therapy. Physical Examination: Vital Signs: Blood pressure 153/67, pulse of 65, afebrile. Chest: Clear to auscultation. Heart: S1, S2. Regular. Abdomen: Soft and nontender. Extremities: Trace edema. Laboratory Data: WBC 8.9, H and H 12.9/37.9. Sodium 138, potassium 4, bicarb 28, BUN 84, creatinine 2.4, calcium 8.6, phosphorus 2.9. Current Medications: The patient on its include: 1.Folic acid. 2.Lovenox. 3.Plavix. 4.Multivitamin. 5.Bumex. 6.Levothyroxine. 7.Isosorbide. 8.Multivitamin. 9.Flomax. Assessment And Plan: 1.Chronic kidney disease, stable on baseline. We will continue current medication. 2.Edema. Continue diuresis. Reinforce for the patient for low-salt diet and fluid restriction. 3.Cerebrovascular accident. Continue supportive care, PT, OT. MELISSA Voice ID: [id number] Report ID: [id number]
[2019-01-31] MEDS: SIMVASTATIN 80 MG PO SCH (20:25)
[2019-01-31] MEDS: TAMSULOSIN 0.4 MG SR CAP PO SCH (20:25)
[2019-01-31] MEDS: ENOXAPARIN 30 MG/0.3 ML SQ SCH (20:25)
--- NOTE | 2019-02-01 02:53 | FAST ---
SHIFT START DATE/TIME: 01/31/2019 19:00 (MID LEVEL NET DEVELOPER) SHIFT END DATE/TIME: 02/01/2019 07:00 (MID LEVEL NET DEVELOPER) NAME ALISSON HERNANDEZ DATE OF : 1930 DATE OF ADMISSION: 01/26/2019 13:45 (MID LEVEL NET DEVELOPER) PHONE: AGE: 88 SSN# [id number] GENDER: Male ENCOUNTER PHYSICIAN: Dr. Sabino Brewster M.D. ADMISSION DIAGNOSIS: - Stroke 01 - Right Body (Left Brain) (01.2) Acute left inferior cerebellar infarct. EATING: Activity did not occur on this shift EATING - SCORE: 0-UNK GROOMING: Activity did not occur on this shift GROOMING - SCORE: 0-UNK BATHING: Activity did not occur on this shift BATHING - SCORE: 0-UNK DRESSING - UPPER BODY: Patient is not dressing in public clothing ARTICLES SCORE Total number of steps: 0 DRESSING - UPPER BODY - SCORE: 0-UNK DRESSING - LOWER BODY: Patient is not dressing in public clothing ARTICLES SCORE Total number of steps: 0 DRESSING - LOWER BODY - SCORE: 0-UNK TOILETING: TOILETING - STEP 1: Does the patient require the assistance of a person or device, or need extra time with toileting? Yes . TOILETING - STEP 2: Does the patient require the assistance of a helper? Yes. TOILETING - STEP 3: How much assistance does the patient require from the helper? Only supervision TOILETING - SCORE: 5-SUP BLADDER MANAGEMENT: BLADDER MANAGEMENT - STEP 1: Does the patient control the bladder completely and intentionally without equipment or devices or med ications, and is always continent? No. BLADDER MANAGEMENT - STEP 2: Does the patient require the assistance of a helper? Yes. BLADDER MANAGEMENT - STEP 3: How much assistance does the patient require from the helper? Only supervision, stand-by, cuing, or c oaxing BLADDER MANAGEMENT - SCORE: 5-SUP BLADDER MANAGEMENT - FREQUENCY OF ACCIDENTS: BLADDER MANAGEMENT(FA) - STEP 1: How many accidents has the patient had during the current shift? 1 BOWEL MANAGEMENT: Activity did not occur on this shift BOWEL MANAGEMENT - SCORE: 7-IND TRANSFERS: BED, CHAIR, WHEELCHAIR: TRANSFERS: BED, CHAIR, WHEELCHAIR - STEP 1: Does the patient require assistance of a person or device, or need extra time with bed, chair, or whe elchair transfers? Yes. TRANSFERS: BED, CHAIR, WHEELCHAIR - STEP 2: Does the patient require the assistance of a helper? Yes. TRANSFERS: BED, CHAIR, WHEELCHAIR - STEP 3: How much assistance does the patient require from the helper? Lifting of the legs TRANSFERS: BED, CHAIR, WHEELCHAIR - STEP 4: How many legs does the patient require the helper to lift? both legs TRANSFERS: BED, CHAIR, WHEELCHAIR - SCORE: 3-MOD TRANSFERS: TOILET: Activity did not occur on this shift TRANSFERS: TOILET - SCORE: 0-UNK TRANSFERS: SHOWER: Activity did not occur on this shift TRANSFERS: SHOWER - SCORE: 0-UNK TRANSFERS: TUB: Activity did not occur on this shift TRANSFERS: TUB - SCORE: 0-UNK LOCOMOTION: WALK: Activity did not occur on this shift LOCOMOTION: WALK - SCORE: 0-UNK LOCOMOTION: WHEELCHAIR: Activity did not occur on this shift LOCOMOTION: WHEELCHAIR - SCORE: 0-UNK COMPREHENSION: COMPREHENSION: TYPE: Both COMPREHENSION - STEP 1: Does the patient require help from a person or device, or need extra time to understand complex and a bstract ideas (such as current events, finances, discharge planning, medical issues, relationships, e tc)? No. COMPREHENSION - STEP 2: Does the patient need extra time, require an assistive device (such as glasses for visual comprehensi on or a hearing aid for auditory comprehension) or does s/he have mild difficulty understanding compl ex and abstract information? Yes. COMPREHENSION - SCORE: 6-SINGH EXPRESSION EXPRESSION: TYPE: Both EXPRESSION - STEP 1: Does the patient require help from a person or device, or need extra time expressing complex and abst ract ideas (such as current events, finances, discharge planning, medical issues, relationships, etc) ? No. EXPRESSION - STEP 2: Does the patient need extra time, require an assistive device (such as augmentive communication syste m or a communication board), OR does s/he have mild difficulty expressing complex and abstract ideas (including mild dysarthria or mild word-find problems)? No. EXPRESSION - SCORE: 7-IND SOCIAL INTERACTION: SOCIAL INTERACTION - STEP 1: Does the patient require a helper to interact with others in social and therapeutic situations? No. SOCIAL INTERACTION - STEP 2: Does the patient need extra time in social situations, OR does s/he interact with staff, other patien ts, and family members ONLY in structured environments, OR does s/he require medication for social in teraction? Yes, patient needs extra time SOCIAL INTERACTION - SCORE: 6-SINGH PROBLEM SOLVING: PROBLEM SOLVING - STEP 1: Does the patient need help from a person or device, or need extra time to solve complex problems such as managing a checking account or confronting interpersonal problems? No. PROBLEM SOLVING - STEP 2: Does the patient require extra time to make decisions or solve problems, OR does s/he have slight dif ficulty reading, initiating, or self-correcting in unfamiliar situations? Yes, patient needs extra ti me. PROBLEM SOLVING - SCORE: 6-SINGH MEMORY: MEMORY - STEP 1: Does the patient need help from a person or device, or need extra time to remember frequently encount ered people, daily routines, and executing requests? No. MEMORY - STEP 2: Does the patient have slight difficulty recognizing frequently encountered people, daily routines, or executing requests without the need for repetition or using self-initiated or environmental cues to remember? Yes. MEMORY - SCORE: 6-SINGH SIGNATURE PANEL: The following modified sections: Eating - Score, Grooming - Score, Dressing - Upper Body - Score, Ben ssing - Lower Body - Score, Toileting - Score, Bladder Management - Score, Bowel Management - Score, Transfers: Bed, Chair, Wheelchair - Score, Transfers: Toilet - Score, Transfers: Shower - Score, [place] sfers: Tub - Score, Locomotion: Walk - Score, Locomotion: Wheelchair - Score, Comprehension - Score, Expression - Score, Social Interaction - Score, Problem Solving - Score, Memory - Score were [electro nically] signed by Margi Collier CNA on FriFeb 01 2019 02:52:55 GMT-0600 (Central Standard Time)
[2019-02-01] MEDS: METOPROLOL XL 50 MG TAB PO SCH ×2 (05:27→17:11)
[2019-02-01 06:16] LABS: Albumin 2.8 g/dL (3.4-5.0); Phosphorus 2.9 mg/dL (2.5-4.9); Potassium 3.9 mmol/L (3.5-5.1)
[2019-02-01] MEDS: LEVOTHYROXINE 88 MCG PO SCH (07:06)
[2019-02-01] MEDS: LEVOTHYROXINE 200 MCG PO SCH (07:06)
[2019-02-01] MEDS ORDERED: D50W 25 GM/50 ML SYRINGE IV PRN (07:40)
[2019-02-01] MEDS ORDERED: GLUCAGON 1 MG/VIAL IM PRN (07:40)
[2019-02-01] MEDS: ISOSORBIDE MONO SR 30 MG TAB PO SCH (08:00)
[2019-02-01] MEDS: INSULIN -REGULAR HUMAN 50 UNIT/0.5 ML ML SQ SCH ×4 (08:25→19:42)
[2019-02-01] MEDS: ASPIRIN EC 81 MG TAB PO SCH (08:26)
[2019-02-01] MEDS: MULTIVITAMIN TAB PO SCH (08:26)
[2019-02-01] MEDS: FOLIC ACID 1 MG TABLET PO SCH (08:26)
[2019-02-01] MEDS: INSULIN GLARGINE 100 UNITS/ML SQ SCH (08:26)
[2019-02-01] MEDS: CLOPIDOGREL 75 MG TABLET PO SCH (08:26)
[2019-02-01] MEDS: BUMETANIDE 2 MG TABLET PO SCH (08:27)
--- NOTE | 2019-02-01 14:44 | FAST ---
ENCOUNTER DATE AND TIME: 02/01/2019 08:00 (DISTRICT RECRUITER) NAME ALISSON HERNANDEZ DATE OF : 1930 DATE OF ADMISSION: 01/26/2019 13:45 (DISTRICT RECRUITER) PHONE: AGE: 88 N# [id number] GENDER: Male ENCOUNTER PHYSICIAN: Dr. Sabino Brewster M.D. ADMISSION DIAGNOSIS: - Stroke 01 - Right Body (Left Brain) (01.2) Acute left inferior cerebellar infarct. EATING: Activity did not occur on this shift EATING - SCORE: 0-UNK GROOMING: Activity did not occur on this shift GROOMING - SCORE: 0-UNK BATHING: Activity did not occur on this shift BATHING - SCORE: 0-UNK DRESSING - UPPER BODY: Activity did not occur on this shift Patient is not dressing in public clothing ARTICLES SCORE Total number of steps: 0 DRESSING - UPPER BODY - SCORE: 0-UNK DRESSING - LOWER BODY: Activity did not occur on this shift Patient is not dressing in public clothing ARTICLES SCORE Total number of steps: 0 DRESSING - LOWER BODY - SCORE: 0-UNK TOILETING: Activity did not occur on this shift TOILETING - SCORE: 0-UNK BLADDER MANAGEMENT: Activity did not occur on this shift BLADDER MANAGEMENT - SCORE: 7-IND BOWEL MANAGEMENT: Activity did not occur on this shift BOWEL MANAGEMENT - SCORE: 7-IND TRANSFERS: BED, CHAIR, WHEELCHAIR: TRANSFERS: BED, CHAIR, WHEELCHAIR - STEP 1: Does the patient require assistance of a person or device, or need extra time with bed, chair, or whe elchair transfers? Yes. TRANSFERS: BED, CHAIR, WHEELCHAIR - STEP 2: Does the patient require the assistance of a helper? Yes. TRANSFERS: BED, CHAIR, WHEELCHAIR - STEP 3: How much assistance does the patient require from the helper? Steadying/guiding assistance TRANSFERS: BED, CHAIR, WHEELCHAIR - SCORE: 4-MIN TRANSFERS: TOILET: TRANSFERS: TOILET - STEP 1: Does the patient require the assistance of a person or device, or need extra time with toilet transfe rs? Yes. TRANSFERS: TOILET - STEP 2: Does the patient require the assistance of a helper? Yes. TRANSFERS: TOILET - STEP 3: How much assistance does the patient require from the helper? Only supervision, cuing, coaxing, OR he lp to set out transfer equipment or to lock brakes and/or lift foot rests TRANSFERS: TOILET - SCORE: 5-SUP TRANSFERS: SHOWER: Activity did not occur on this shift TRANSFERS: SHOWER - SCORE: 0-UNK TRANSFERS: TUB: Activity did not occur on this shift TRANSFERS: TUB - SCORE: 0-UNK LOCOMOTION: WALK: Patient walks less than 50 feet LOCOMOTION: WALK - SCORE: 1-DEP LOCOMOTION: WHEELCHAIR: LOCOMOTION: WHEELCHAIR - STEP 1: Does the patient need help to go 150 feet in a wheelchair? Yes. LOCOMOTION: WHEELCHAIR - STEP 2: How much assistance does the patient need from the helper? Patient goes less than 150 feet - but more than 50 feet - with the assistance of only one helper LOCOMOTION: WHEELCHAIR - SCORE: 2-MAX LOCOMOTION: STAIRS: Activity did not occur on this shift LOCOMOTION: STAIRS - SCORE: 0-UNK COMPREHENSION: COMPREHENSION - SCORE: 0-UNK EXPRESSION EXPRESSION - SCORE: 0-UNK SOCIAL INTERACTION: SOCIAL INTERACTION - SCORE: 0-UNK PROBLEM SOLVING: PROBLEM SOLVING - SCORE: 0-UNK MEMORY: MEMORY - SCORE: 0-UNK SIGNATURE PANEL: The following modified sections: Transfers: Bed, Chair, Wheelchair - Score, Transfers: Toilet - Score , Locomotion: Walk - Score, Locomotion: Wheelchair - Score, Locomotion: Stairs - Score were [electron shruti] signed by Zenon Javier PT on FriFeb 01 2019 14:44:03 GMT-0600 (Central Standard Time)
--- NOTE | 2019-02-01 15:24 | FAST ---
SHIFT START DATE/TIME: 02/01/2019 07:00 (LIMITED RADIOLOGY TECHNICIAN) SHIFT END DATE/TIME: 02/01/2019 19:00 (LIMITED RADIOLOGY TECHNICIAN) NAME ALISSON HERNANDEZ DATE OF : 1930 DATE OF ADMISSION: 01/26/2019 13:45 (LIMITED RADIOLOGY TECHNICIAN) PHONE: AGE: 88 N# [id number] GENDER: Male ENCOUNTER PHYSICIAN: Dr. Sabino Brewster M.D. ADMISSION DIAGNOSIS: - Stroke 01 - Right Body (Left Brain) (01.2) Acute left inferior cerebellar infarct. EATING: EATING - STEP 1: Does the patient require the assistance of a person or device, or need extra time when eating? Yes. EATING - STEP 2: Does the patient require the assistance of a helper? No, patient only requires an assistive device, O R s/he takes more than reasonable time to eat, OR there is a safety concern, OR s/he requires modifie d food consistency EATING - SCORE: 6-SINGH GROOMING: Activity did not occur on this shift GROOMING - SCORE: 0-UNK BATHING: Activity did not occur on this shift BATHING - SCORE: 0-UNK DRESSING - UPPER BODY: Activity did not occur on this shift ARTICLES SCORE Total number of steps: 0 DRESSING - UPPER BODY - SCORE: 0-UNK DRESSING - LOWER BODY: Activity did not occur on this shift ARTICLES SCORE Total number of steps: 0 DRESSING - LOWER BODY - SCORE: 0-UNK TOILETING: TOILETING - STEP 1: Does the patient require the assistance of a person or device, or need extra time with toileting? Yes . TOILETING - STEP 2: Does the patient require the assistance of a helper? Yes. TOILETING - STEP 3: How much assistance does the patient require from the helper? Hands-on assistance from the helper TOILETING - STEP 4: Of the 3 tasks: 1) Adjusting clothing prior to use, 2) Cleansing of perineal area, 3) Adjusting clot gregor after use; How many tasks does the patient perform WITHOUT assistance of the helper? One task TOILETING - SCORE: 2-MAX BLADDER MANAGEMENT: BLADDER MANAGEMENT - STEP 1: Does the patient control the bladder completely and intentionally without equipment or devices or med ications, and is always continent? No. BLADDER MANAGEMENT - STEP 2: Does the patient require the assistance of a helper? No, patient requires and independently uses an a ssistive device, such as a urinal, bedpan, bedside commode, catheter, absorbent pad, or collecting de vice BLADDER MANAGEMENT - SCORE: 6-SINGH BOWEL MANAGEMENT: Activity did not occur on this shift BOWEL MANAGEMENT - SCORE: 7-IND TRANSFERS: BED, CHAIR, WHEELCHAIR: TRANSFERS: BED, CHAIR, WHEELCHAIR - STEP 1: Does the patient require assistance of a person or device, or need extra time with bed, chair, or whe elchair transfers? Yes. TRANSFERS: BED, CHAIR, WHEELCHAIR - STEP 2: Does the patient require the assistance of a helper? Yes. TRANSFERS: BED, CHAIR, WHEELCHAIR - STEP 3: How much assistance does the patient require from the helper? Lifting of the patient TRANSFERS: BED, CHAIR, WHEELCHAIR - STEP 4: Does the helper lift the patient ONLY up? ONLY down? Up AND Down? ONLY up. TRANSFERS: BED, CHAIR, WHEELCHAIR - SCORE: 3-MOD TRANSFERS: TOILET: TRANSFERS: TOILET - STEP 1: Does the patient require the assistance of a person or device, or need extra time with toilet transfe rs? Yes. TRANSFERS: TOILET - STEP 2: Does the patient require the assistance of a helper? Yes. TRANSFERS: TOILET - STEP 3: How much assistance does the patient require from the helper? Patient performs half or more of the tr ansferring tasks TRANSFERS: TOILET - STEP 4: Does the patient need only incidental help such as contact guard or steadying during toilet transfer? No. Patient needs more than incidental help TRANSFERS: TOILET - SCORE: 3-MOD TRANSFERS: SHOWER: Activity did not occur on this shift TRANSFERS: SHOWER - SCORE: 0-UNK TRANSFERS: TUB: Activity did not occur on this shift TRANSFERS: TUB - SCORE: 0-UNK LOCOMOTION: WALK: Activity did not occur on this shift LOCOMOTION: WALK - SCORE: 0-UNK LOCOMOTION: WHEELCHAIR: Activity did not occur on this shift LOCOMOTION: WHEELCHAIR - SCORE: 0-UNK COMPREHENSION: COMPREHENSION: TYPE: Both COMPREHENSION - STEP 1: Does the patient require help from a person or device, or need extra time to understand complex and a bstract ideas (such as current events, finances, discharge planning, medical issues, relationships, e tc)? No. COMPREHENSION - STEP 2: Does the patient need extra time, require an assistive device (such as glasses for visual comprehensi on or a hearing aid for auditory comprehension) or does s/he have mild difficulty understanding compl ex and abstract information? Yes. COMPREHENSION - SCORE: 6-SINGH EXPRESSION EXPRESSION: TYPE: Both EXPRESSION - STEP 1: Does the patient require help from a person or device, or need extra time expressing complex and abst ract ideas (such as current events, finances, discharge planning, medical issues, relationships, etc) ? No. EXPRESSION - STEP 2: Does the patient need extra time, require an assistive device (such as augmentive communication syste m or a communication board), OR does s/he have mild difficulty expressing complex and abstract ideas (including mild dysarthria or mild word-find problems)? Yes. EXPRESSION - SCORE: 6-SINGH SOCIAL INTERACTION: SOCIAL INTERACTION - STEP 1: Does the patient require a helper to interact with others in social and therapeutic situations? No. SOCIAL INTERACTION - STEP 2: Does the patient need extra time in social situations, OR does s/he interact with staff, other patien ts, and family members ONLY in structured environments, OR does s/he require medication for social in teraction? Yes, patient needs extra time SOCIAL INTERACTION - SCORE: 6-SINGH PROBLEM SOLVING: PROBLEM SOLVING - STEP 1: Does the patient need help from a person or device, or need extra time to solve complex problems such as managing a checking account or confronting interpersonal problems? No. PROBLEM SOLVING - STEP 2: Does the patient require extra time to make decisions or solve problems, OR does s/he have slight dif ficulty reading, initiating, or self-correcting in unfamiliar situations? Yes, patient needs extra ti me. PROBLEM SOLVING - SCORE: 6-SINGH MEMORY: MEMORY - STEP 1: Does the patient need help from a person or device, or need extra time to remember frequently encount ered people, daily routines, and executing requests? No. MEMORY - STEP 2: Does the patient have slight difficulty recognizing frequently encountered people, daily routines, or executing requests without the need for repetition or using self-initiated or environmental cues to remember? Yes. MEMORY - SCORE: 6-SINGH SIGNATURE PANEL: The following modified sections: Eating - Score, Grooming - Score, Bathing - Score, Dressing - Upper Body - Score, Dressing - Lower Body - Score, Toileting - Score, Bladder Management - Score, Bowel Man agement - Score, Transfers: Bed, Chair, Wheelchair - Score, Transfers: Toilet - Score, Transfers: Iris wer - Score, Transfers: Tub - Score, Locomotion: Walk - Score, Locomotion: Wheelchair - Score, Compre hension - Score, Expression - Score, Social Interaction - Score, Problem Solving - Score, Memory - Sc ore were [electronically] signed by Barrera Liang on FriFeb 01 2019 15:22:41 GMT-0600 (Central Standard Time)
--- NOTE | 2019-02-01 15:25 | FAST ---
ENCOUNTER DATE AND TIME: 02/01/2019 08:00 (CARTOGRAPHY/MAPPING TECHNICIAN) NAME ALISSON HERNANDEZ DATE OF : 1930 DATE OF ADMISSION: 01/26/2019 13:45 (CARTOGRAPHY/MAPPING TECHNICIAN) PHONE: AGE: 88 N# [id number] GENDER: Male ENCOUNTER PHYSICIAN: Dr. Sabino Brewster M.D. ADMISSION DIAGNOSIS: - Stroke 01 - Right Body (Left Brain) (01.2) Acute left inferior cerebellar infarct. EATING: Activity did not occur on this shift EATING - SCORE: 0-UNK GROOMING: Wash, rinse, and dry hands GROOMING - STEP 1: Does the patient require the assistance of a person or device, or need extra time when grooming? No. GROOMING - SCORE: 7-IND BATHING: Activity did not occur on this shift BATHING - SCORE: 0-UNK DRESSING - UPPER BODY: Activity did not occur on this shift ARTICLES SCORE Total number of steps: 0 DRESSING - UPPER BODY - SCORE: 0-UNK DRESSING - LOWER BODY: Activity did not occur on this shift ARTICLES SCORE Total number of steps: 0 DRESSING - LOWER BODY - SCORE: 0-UNK TOILETING: TOILETING - STEP 1: Does the patient require the assistance of a person or device, or need extra time with toileting? Yes . TOILETING - STEP 2: Does the patient require the assistance of a helper? Yes. TOILETING - STEP 3: How much assistance does the patient require from the helper? Hands-on assistance from the helper TOILETING - STEP 4: Of the 3 tasks: 1) Adjusting clothing prior to use, 2) Cleansing of perineal area, 3) Adjusting clot gregor after use; How many tasks does the patient perform WITHOUT assistance of the helper? Three tasks with steadying assistance from the helper TOILETING - SCORE: 4-MIN BLADDER MANAGEMENT: Activity did not occur on this shift BLADDER MANAGEMENT - SCORE: 7-IND BOWEL MANAGEMENT: Activity did not occur on this shift BOWEL MANAGEMENT - SCORE: 7-IND TRANSFERS: BED, CHAIR, WHEELCHAIR: Activity did not occur on this shift TRANSFERS: BED, CHAIR, WHEELCHAIR - SCORE: 0-UNK TRANSFERS: TOILET: TRANSFERS: TOILET - STEP 1: Does the patient require the assistance of a person or device, or need extra time with toilet transfe rs? Yes. TRANSFERS: TOILET - STEP 2: Does the patient require the assistance of a helper? Yes. TRANSFERS: TOILET - STEP 3: How much assistance does the patient require from the helper? Patient performs half or more of the tr ansferring tasks TRANSFERS: TOILET - STEP 4: Does the patient need only incidental help such as contact guard or steadying during toilet transfer? Yes. TRANSFERS: TOILET - SCORE: 4-MIN TRANSFERS: SHOWER: Activity did not occur on this shift TRANSFERS: SHOWER - SCORE: 0-UNK TRANSFERS: TUB: Activity did not occur on this shift TRANSFERS: TUB - SCORE: 0-UNK LOCOMOTION: WALK: Activity did not occur on this shift LOCOMOTION: WALK - SCORE: 0-UNK LOCOMOTION: WHEELCHAIR: Activity did not occur on this shift LOCOMOTION: WHEELCHAIR - SCORE: 0-UNK LOCOMOTION: STAIRS: Activity did not occur on this shift LOCOMOTION: STAIRS - SCORE: 0-UNK COMPREHENSION: COMPREHENSION - SCORE: 0-UNK EXPRESSION EXPRESSION - SCORE: 0-UNK SOCIAL INTERACTION: SOCIAL INTERACTION - SCORE: 0-UNK PROBLEM SOLVING: PROBLEM SOLVING - SCORE: 0-UNK MEMORY: MEMORY - SCORE: 0-UNK SIGNATURE PANEL: The following modified sections: Eating - Score, Grooming - Score, Bathing - Score, Dressing - Upper Body - Score, Dressing - Lower Body - Score, Toileting - Score, Transfers: Bed, Chair, Wheelchair - S core, Transfers: Toilet - Score, Transfers: Shower - Score, Transfers: Tub - Score, Comprehension - S core, Expression - Score, Social Interaction - Score, Problem Solving - Score, Memory - Score were [e lectronically] signed by COREY Amaya on FriFeb 01 2019 15:24:17 GMT-0600 ([place] Time)
[2019-02-01] MEDS: SIMVASTATIN 80 MG PO SCH (20:01)
[2019-02-01] MEDS: TAMSULOSIN 0.4 MG SR CAP PO SCH (20:01)
[2019-02-01] MEDS: ENOXAPARIN 30 MG/0.3 ML SQ SCH (20:01)
--- NOTE | 2019-02-01 21:10 | R.PN ---
ENCOUNTER DATE AND TIME: 02/01/2019 21:05 (COMMUNICATIONS ADVISOR) NAME ALISSON HERNANDEZ DATE OF : 1930 DATE OF ADMISSION: 01/26/2019 13:45 (COMMUNICATIONS ADVISOR) Acute left inferior cerebellar infarctCHIEF COMPLAINT: Left cerebellar stroke SUBJECTIVE: Pt denied any Shortness of Breath. Pt denied any depression. Wheelchair mobility done with standby assistance for 280'. VITAL SIGNS Temperature: 97.6 F SBP/DBP: 175/9 Pulse: 60 Resp: 14 Ambulated 70' with minimum assistance. MEDICATION ALLERGIES: No Known Drug Allergies (NKDA) ENVIRONMENTAL ALLERGIES: None Known - Substance Allergies None Known - Other Allergies None Known NURSING: - Shower allowing shower - Lab Results blood Sugar Check ACHS - Bladder care per protocol - Skin care per protocol PRECAUTIONS: - Weight Bearing Precaution WBAT right LE ACTIVITIES OOB only with supervision THERAPIES: - Occupational Therapy Evaluate and Treat. Visual Perceptual Training. Cognitive Retraining. - Speech Therapy Cognitive Training. Memory Strategies. Speech Intelligibility Training. Expressive Language Skills. R eceptive Language Skills. - Physical Therapy Evaluate and Treat. PHYSICAL EXAM - Gen Alert and awake Lying in bed No apparent distress Oriented to: person, time, and place - Skin No beakdown No abnormalities - Eyes No abnormalities - Neck No abnormalities - CVS RRR - Chest Clear - Abd + bowel sounds - GI Soft Deferred - No abnormalities - Ext No significant edema - MSK 4+/5 weakness in left upper and lower extremities. - Neuro 4/5 strength left upper and lower extremities. - Psych No abnormalities ASSESSMENT: Pt. is a 88 yo Right-handed white male.On 01/21/2019 Pt. presented to [facility] with sudden onset of right-side weakness.On 01/21/2019 he was admitted to [facility] with diagnosis Acute left inferior cerebellar infarct.His impairment category is Stroke 01 - Right Body (Left Brain) (01.2).Pre-morbidly, Pt. was independent/mod-I in Self-Care, Locomotion, Sph incter Control, Transfers Control, Communication, and Social Cognition; and he had good Sphincter Con trol.Currently, he has deficits of Balance, Self-Care, Locomotion, Endurance, Safety Awareness, and T ransfers Control.Pt. is now referred to [facility] for acute in-patient rehabi litation in order to maximize patient's functional independence in activities of daily living, streng th, ROM, and mobility.- Rehab Goal Patient has realistic goal of being discharged at assistance level 6-Harlan to reside at Home with Fam es/Relatives. MDM/PLAN: - Physical Therapy Gait dysfunction - to improve, our physical therapists will perform initial evaluation of pt's statu s upon admission and devise an individualized program for Gait Training, and Wheel Chair mobility Inability to transfer - to improve, our physical therapists will perform initial evaluation of pt's status upon admission and devise an individualized program for Bed mobility Need for home safety evaluation - to improve, our physical therapists will perform initial evaluatio n of pt's status upon admission and devise an individualized program for Home Evaluation Need in caregiver upon discharge - to improve, our physical therapists will perform initial evaluati on of pt's status upon admission and devise an individualized program for Caregiver Training New precaution - to improve, our physical therapists will perform initial evaluation of pt's status upon admission and devise an individualized program for Patient precaution education Edema - to improve, our physical therapists will perform initial evaluation of pt's status upon admi ssion and devise an individualized program for Elevation Training, and Lymphedema Therapy Poor balance - to improve, our physical therapists will perform initial evaluation of pt's status up on admission and devise an individualized program for Balance Training Poor endurance - to improve, our physical therapists will perform initial evaluation of pt's status upon admission and devise an individualized program for Endurance Training Weakness - to improve, our physical therapists will perform initial evaluation of pt's status upon a dmission and devise an individualized program for Aquatic Therapy, Neuromuscular Reeducation, and Str engthening Achieving independence - to improve, our physical therapists will perform initial evaluation of pt's status upon admission and devise an individualized program for Community Reintegration Activities - Occupational Therapy ADL deficits - to improve, our occupation therapists will perform initial evaluation of pt's status upon admission and devise an individualized program for Bathing, Bed mobility, Community Reintegratio n, Cooking, Dressing, Eating, Fine Motor Skills, Grooming, Homemaking, Kitchen Mobility, Laundry, Pat ient Education, Safety Awareness, Splinting - Positioning, Transfers(Toilet, Tub, Shower), and Wheel Chair Management Need for pet care associate - to improve, our occupation therapists will perform initial evaluation of pt's status upon admission and devise an individualized program for Caregiver Training Weakness - to improve, our occupation therapists will perform initial evaluation of pt's status upon admission and devise an individualized program for Aquatic Therapy, Balance, Endurance, UE ROM, and UE strengthening - Diet Type Continue Regular - Diet - Liquid Texture Continue Regular - Tube Feed Continue N/A - Lab Results blood Sugar Check ACHS - Bladder care per protocol - Weight Bearing Precaution WBAT right LE - Skin care per protocol - Diet - Solid Texture Continue Regular - Shower allowing shower for Dementia, TBI, Stroke, or others FUNCTIONAL STATUS: UPDATED AT WEEKLY TEAM CONFERENCE - Bladder Same accident frequency: 7-Ind - No accidents in the past 7 days - Bowel Same accident frequency: 7-Ind - No accidents in the past 7 days - Walking Same score based on distance walked: 0(N/A) - Wheelchair Same score based on distance traveled: 0(N/A) FUNCTIONAL STATUS: - Self-Care A. Eating sup B. Grooming sup C. Bathing Erinn D. Dressing - Upper modA E. Dressing - Lower modA F. Toileting Erinn - Sphincter Control G: Bladder control Ind H: Bowel control Ind - Transfers Control I. Bed/Chair/Wheelchair Erinn J. Toilet Erinn K. Tub/Shower ADNO - Locomotion L. Walk/Wheelchair (C) modA L. Walk/Wheelchair (W) modA M. Stairs ADNO - Communication N. Comprehension (B) Harlan O. Expression (B) Harlan - Social Cognition P. Social Interaction Harlan Q. Problem Solving Harlan R. Memory Harlan - Endurance Fair - Balance Fair - Safety Awareness Fair CURRENT FUNC. DEFICITS: Balance, Self-Care, Locomotion, Endurance, Safety Awareness, and Transfers Control SIGNATURE PANEL: ([facility])
--- NOTE | 2019-02-02 00:59 | PN ---
Date of Progress Note: 02/01/2019 Subjective: The patient was seen this morning for followup. No new complaints, problems reported by the patient lying in bed, not in distress. His fingerstick blood sugar this morning before breakfas t was 207. He did have a bedtime snack last night and did not receive any insulin at bedtime per ins truction. Fingerstick blood sugar readings reviewed from yesterday. Objective: Vital Signs: Reviewed. HEENT: Unremarkable. Lungs: Clear to auscultation. Heart: Sounds normal. Abdomen: Soft. Bowel sounds normal. No guarding, rigidity, tenderness, distention. Extremities: No leg edema. Impression: 1.Stroke. 2.Hypertension. 3.Coronary artery disease. 4.Diabetes mellitus, uncontrolled. Plan: We will go ahead and continue bedtime snack per order. We will increase Lantus insulin to 55 units every morning and continue sliding scale at breakfast, lunch, and dinner time. I will see him tomorrow for followup. Continue aspirin, Plavix, and folic acid. AUNG/MODL Voice ID: [id number] Report ID: [id number]
--- NOTE | 2019-02-02 01:15 | FAST ---
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 Sabino Brewster M.D. ADMISSION DIAGNOSIS: - Stroke 01 - Right Body (Left Brain) (01.2) Acute left inferior cerebellar infarct. EATING: Activity did not occur on this shift EATING - SCORE: 0-UNK GROOMING: Activity did not occur on this shift GROOMING - SCORE: 0-UNK BATHING: Activity did not occur on this shift BATHING - SCORE: 0-UNK DRESSING - UPPER BODY: Activity did not occur on this shift ARTICLES SCORE Total number of steps: 0 DRESSING - UPPER BODY - SCORE: 0-UNK DRESSING - LOWER BODY: Activity did not occur on this shift ARTICLES SCORE Total number of steps: 0 DRESSING - LOWER BODY - SCORE: 0-UNK TOILETING: TOILETING - STEP 1: Does the patient require the assistance of a person or device, or need extra time with toileting? Yes . TOILETING - STEP 2: Does the patient require the assistance of a helper? Yes. TOILETING - STEP 3: How much assistance does the patient require from the helper? Hands-on assistance from the helper TOILETING - STEP 4: Of the 3 tasks: 1) Adjusting clothing prior to use, 2) Cleansing of perineal area, 3) Adjusting clot gregor after use; How many tasks does the patient perform WITHOUT assistance of the helper? No tasks; h lexa performs all three tasks TOILETING - SCORE: 1-DEP BLADDER MANAGEMENT: BLADDER MANAGEMENT - STEP 1: Does the patient control the bladder completely and intentionally without equipment or devices or med ications, and is always continent? No. BLADDER MANAGEMENT - STEP 2: Does the patient require the assistance of a helper? Yes. BLADDER MANAGEMENT - STEP 3: How much assistance does the patient require from the helper? Patient requires contact assistance fro m the helper BLADDER MANAGEMENT - STEP 4: How much contact assistance does the patient require from the helper? Patient requires moderate shantell tance, and performs 50% to 75% of bladder management tasks - [place] positions AND holds urinal or bed luna BLADDER MANAGEMENT - SCORE: 3-MOD BOWEL MANAGEMENT: Activity did not occur on this shift BOWEL MANAGEMENT - SCORE: 7-IND TRANSFERS: BED, CHAIR, WHEELCHAIR: Patient requires more than one helper and/or the use of a mechanical lift is utilized TRANSFERS: BED, CHAIR, WHEELCHAIR - SCORE: 1-DEP TRANSFERS: TOILET: Patient requires more than one helper and/or the use of a mechanical lift is utilized TRANSFERS: TOILET - SCORE: 1-DEP TRANSFERS: SHOWER: Activity did not occur on this shift TRANSFERS: SHOWER - SCORE: 0-UNK TRANSFERS: TUB: Activity did not occur on this shift TRANSFERS: TUB - SCORE: 0-UNK LOCOMOTION: WALK: Activity did not occur on this shift LOCOMOTION: WALK - SCORE: 0-UNK LOCOMOTION: WHEELCHAIR: Activity did not occur on this shift LOCOMOTION: WHEELCHAIR - SCORE: 0-UNK COMPREHENSION: COMPREHENSION: TYPE: Both COMPREHENSION - STEP 1: Does the patient require help from a person or device, or need extra time to understand complex and a bstract ideas (such as current events, finances, discharge planning, medical issues, relationships, e tc)? Yes. COMPREHENSION - STEP 2: Does the patient require help to understand questions or statements about basic needs or ideas (such as hunger, thirst, sleep, safety, daily schedule, room location, or discomfort) half or more of the t ld? No. COMPREHENSION - STEP 3: How often does the patient need help to understand directions and conversation about basic needs? 10% - 24% of the time COMPREHENSION - SCORE: 4-MIN EXPRESSION EXPRESSION: TYPE: Both EXPRESSION - STEP 1: Does the patient require help from a person or device, or need extra time expressing complex and abst ract ideas (such as current events, finances, discharge planning, medical issues, relationships, etc) ? Yes. EXPRESSION - STEP 2: Does the patient require help to express basic necessities or ideas (such as hunger, thirst, sleep, s afety, daily schedule, room location, or discomfort) half or more of the time? No. EXPRESSION - STEP 3: How often does the patient need help to express directions and conversation about basic needs? 10-24% of the time EXPRESSION - SCORE: 4-MIN SOCIAL INTERACTION: SOCIAL INTERACTION - STEP 1: Does the patient require a helper to interact with others in social and therapeutic situations? No. SOCIAL INTERACTION - STEP 2: Does the patient need extra time in social situations, OR does s/he interact with staff, other patien ts, and family members ONLY in structured environments, OR does s/he require medication for social in teraction? Yes, patient needs extra time SOCIAL INTERACTION - SCORE: 6-SINGH PROBLEM SOLVING: Patient requires bed/chair alarms due to attempts to get up unassisted when helper is needed. PROBLEM SOLVING - STEP 1: How often do the bed/chair alarms go off? Occasionally - the alarms go off about 25% or less PROBLEM SOLVING - SCORE: 4-MIN MEMORY: MEMORY - STEP 1: How often do the bed/chair alarms go off? Occasionally - the alarms go off about 25% of the time or l ess MEMORY - SCORE: 4-MIN SIGNATURE PANEL: The following modified sections: Eating - Score, Grooming - Score, Bathing - Score, Dressing - Upper Body - Score, Dressing - Lower Body - Score, Toileting - Score, Bladder Management - Score, Bowel Man agement - Score, Transfers: Bed, Chair, Wheelchair - Score, Transfers: Toilet - Score, Transfers: Iris wer - Score, Transfers: Tub - Score, Locomotion: Walk - Score, Locomotion: Wheelchair - Score, Compre hension - Score, Expression - Score, Social Interaction - Score, Problem Solving - Score, Memory - Sc ore were [electronically] signed by Ileana Cleary CNA on FriFeb 02 2019 01:14:04 T-0600 ([facility])
--- NOTE | 2019-02-02 04:36 | PN ---
Date of Progress Note: 02/01/2019 Chief Complaint: Chronic kidney disease. Renal function remains stable. The patient was found to have mild prerenal azotemia. Renal function slightly improved. Review of Systems: Denies fever, chills. Physical Examination: Lungs: Clear to auscultation bilaterally. Heart: S1, S2. Abdomen: Soft, benign. Extremities: Trace edema. Laboratory Data: BUN 84, creatinine 2.4, calcium 8.6, phosphorus 2.9, hemoglobin 12.9. Impression And Plan: 1.Fluid overload, edema. Continue Bumex. 2.Benign prostatic hypertrophy without obstruction. The patient denies any new onset of lower urina ry tract symptoms. Continue Flomax. 3.Hypertension. Blood pressure control in acceptable ranges. Continue Lasix for volume control tree ng with low-sodium diet and current blood pressure medications. 4.History of coronary artery disease. The patient is asymptomatic. 5.Trace edema. Continue Bumex, monitor fluid balance and avoid nonsteroidal anti-inflammatory medic ation. PAULETTE/AGUILA Voice ID: [id number] Report ID: [id number]
[2019-02-02] MEDS: METOPROLOL XL 50 MG TAB PO SCH ×2 (05:08→17:31)
[2019-02-02] MEDS: D50W 25 GM/50 ML SYRINGE IV PRN (07:20)
[2019-02-02] MEDS: LEVOTHYROXINE 88 MCG PO SCH (07:21)
[2019-02-02] MEDS: INSULIN -REGULAR HUMAN 50 UNIT/0.5 ML ML SQ SCH ×4 (07:22→20:18)
[2019-02-02] MEDS: LEVOTHYROXINE 200 MCG PO SCH (07:22)
[2019-02-02] MEDS: FOLIC ACID 1 MG TABLET PO SCH (08:39)
[2019-02-02] MEDS: CLOPIDOGREL 75 MG TABLET PO SCH (08:39)
[2019-02-02] MEDS: MULTIVITAMIN TAB PO SCH (08:39)
[2019-02-02] MEDS: ASPIRIN EC 81 MG TAB PO SCH (08:39)
[2019-02-02] MEDS: ISOSORBIDE MONO SR 30 MG TAB PO SCH (08:40)
[2019-02-02] MEDS: INSULIN GLARGINE 100 UNITS/ML SQ SCH (08:44)
[2019-02-02] MEDS: BUMETANIDE 2 MG TABLET PO SCH (08:44)
--- NOTE | 2019-02-02 15:52 | FAST ---
ENCOUNTER DATE AND TIME: 02/02/2019 08:00 (HEAD GROWER) NAME ALISSON HERNANDEZ DATE OF : 1930 DATE OF ADMISSION: 01/26/2019 13:45 (HEAD GROWER) PHONE: AGE: 88 N# [id number] GENDER: Male ENCOUNTER PHYSICIAN: Dr. Sabino Brewster M.D. ADMISSION DIAGNOSIS: - Stroke 01 - Right Body (Left Brain) (01.2) Acute left inferior cerebellar infarct. EATING: Activity did not occur on this shift EATING - SCORE: 0-UNK GROOMING: Activity did not occur on this shift GROOMING - SCORE: 0-UNK BATHING: Activity did not occur on this shift BATHING - SCORE: 0-UNK DRESSING - UPPER BODY: Activity did not occur on this shift Patient is not dressing in public clothing ARTICLES SCORE Total number of steps: 0 DRESSING - UPPER BODY - SCORE: 0-UNK DRESSING - LOWER BODY: Activity did not occur on this shift Patient is not dressing in public clothing ARTICLES SCORE Total number of steps: 0 DRESSING - LOWER BODY - SCORE: 0-UNK TOILETING: Activity did not occur on this shift TOILETING - SCORE: 0-UNK BLADDER MANAGEMENT: Activity did not occur on this shift BLADDER MANAGEMENT - SCORE: 7-IND BOWEL MANAGEMENT: Activity did not occur on this shift BOWEL MANAGEMENT - SCORE: 7-IND TRANSFERS: BED, CHAIR, WHEELCHAIR: TRANSFERS: BED, CHAIR, WHEELCHAIR - STEP 1: Does the patient require assistance of a person or device, or need extra time with bed, chair, or whe elchair transfers? Yes. TRANSFERS: BED, CHAIR, WHEELCHAIR - STEP 2: Does the patient require the assistance of a helper? Yes. TRANSFERS: BED, CHAIR, WHEELCHAIR - STEP 3: How much assistance does the patient require from the helper? Steadying/guiding assistance TRANSFERS: BED, CHAIR, WHEELCHAIR - SCORE: 4-MIN TRANSFERS: TOILET: Activity did not occur on this shift TRANSFERS: TOILET - SCORE: 0-UNK TRANSFERS: SHOWER: Activity did not occur on this shift TRANSFERS: SHOWER - SCORE: 0-UNK TRANSFERS: TUB: Activity did not occur on this shift TRANSFERS: TUB - SCORE: 0-UNK LOCOMOTION: WALK: LOCOMOTION: WALK - STEP 1: Does the patient need help from a person or device, or need extra time to walk 150 feet? Yes. LOCOMOTION: WALK - STEP 2: How much assistance does the patient require to walk a minimum of 150 feet? Patient walks less than 1 50 feet - but more than 50 feet - with the assistance of only one helper LOCOMOTION: WALK - SCORE: 2-MAX LOCOMOTION: WHEELCHAIR: LOCOMOTION: WHEELCHAIR - STEP 1: Does the patient need help to go 150 feet in a wheelchair? Yes. LOCOMOTION: WHEELCHAIR - STEP 2: How much assistance does the patient need from the helper? Only incidental help such as around corner s or over thresholds LOCOMOTION: WHEELCHAIR - SCORE: 4-MIN LOCOMOTION: STAIRS: Activity did not occur on this shift LOCOMOTION: STAIRS - SCORE: 0-UNK COMPREHENSION: COMPREHENSION - SCORE: 0-UNK EXPRESSION EXPRESSION - SCORE: 0-UNK SOCIAL INTERACTION: SOCIAL INTERACTION - SCORE: 0-UNK PROBLEM SOLVING: PROBLEM SOLVING - SCORE: 0-UNK MEMORY: MEMORY - SCORE: 0-UNK SIGNATURE PANEL: The following modified sections: Transfers: Bed, Chair, Wheelchair - Score, Transfers: Toilet - Score , Locomotion: Walk - Score, Locomotion: Wheelchair - Score, Locomotion: Stairs - Score were [electron shruti] signed by Robert Peters PTA on FriFeb 02 2019 15:51:18 GMT-0600 (Central Standard Time)
--- NOTE | 2019-02-02 17:41 | R.PN ---
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 Pt denied any depression. Wheelchair mobility done with contact guard assistance for 150'. Ambulated 140' with contact guard assistance using a rolling walker. Blood sugar down to 39 at 7:08 am. Now sugar 146. Managed by Dr. Puga. VITAL SIGNS Temperature: 97.6 F SBP/DBP: 130/60 Pulse: 77 Resp: 16 MEDICATION ALLERGIES: No Known Drug Allergies (NKDA) ENVIRONMENTAL ALLERGIES: None Known - Substance Allergies None Known - Other Allergies None Known NURSING: - Shower allowing shower - Lab Results blood Sugar Check ACHS - Bladder care per protocol - Skin care per protocol PRECAUTIONS: - Weight Bearing Precaution WBAT right LE ACTIVITIES OOB only with supervision THERAPIES: - Occupational Therapy Evaluate and Treat. Visual Perceptual Training. Cognitive Retraining. - Speech Therapy Cognitive Training. Memory Strategies. Speech Intelligibility Training. Expressive Language Skills. R eceptive Language Skills. - Physical Therapy Evaluate and Treat. PHYSICAL EXAM - Gen Alert and awake Lying in bed No apparent distress Oriented to: person, time, and place - Skin No beakdown No abnormalities - Eyes No abnormalities - Neck No abnormalities - CVS RRR - Chest Clear - Abd + bowel sounds - GI Soft Deferred - No abnormalities - Ext No significant edema - MSK 4+/5 weakness in left upper and lower extremities. - Neuro 4/5 strength left upper and lower extremities. - Psych No abnormalities ASSESSMENT: Pt. is a 88 yo Right-handed white male.On 01/21/[address] Pt. [address] [facility] with sudden onset of right-side weakness.On 01/21/2019 he was admitted [facility] with diagnosis Acute left inferior cerebellar infarct.His impairment category is Stroke 01 - Right Body (Left Brain) (01.2).Pre-morbidly, Pt. was independent/mod-I in Self-Care, Locomotion, Sph incter Control, Transfers Control, Communication, and Social Cognition; and he had good Sphincter Con trol.Currently, he has deficits of Balance, Self-Care, Locomotion, Endurance, Safety Awareness, and T ransfers Control.Pt. is now referred to [facility] for acute in-patient rehabi litation in order to maximize patient's functional independence in activities of daily living, streng th, ROM, and mobility.- Rehab Goal Patient has realistic goal of being discharged at assistance level 6-Harlan to reside at Home with Fam es/Relatives. MDM/PLAN: - Physical Therapy Gait dysfunction - to improve, our physical therapists will perform initial evaluation of pt's statu s upon admission and devise an individualized program for Gait Training, and Wheel Chair mobility Inability to transfer - to improve, our physical therapists will perform initial evaluation of pt's status upon admission and devise an individualized program for Bed mobility Need for home safety evaluation - to improve, our physical therapists will perform initial evaluatio n of pt's status upon admission and devise an individualized program for Home Evaluation Need in caregiver upon discharge - to improve, our physical therapists will perform initial evaluati on of pt's status upon admission and devise an individualized program for Caregiver Training New precaution - to improve, our physical therapists will perform initial evaluation of pt's status upon admission and devise an individualized program for Patient precaution education Edema - to improve, our physical therapists will perform initial evaluation of pt's status upon admi ssion and devise an individualized program for Elevation Training, and Lymphedema Therapy Poor balance - to improve, our physical therapists will perform initial evaluation of pt's status up on admission and devise an individualized program for Balance Training Poor endurance - to improve, our physical therapists will perform initial evaluation of pt's status upon admission and devise an individualized program for Endurance Training Weakness - to improve, our physical therapists will perform initial evaluation of pt's status upon a dmission and devise an individualized program for Aquatic Therapy, Neuromuscular Reeducation, and Str engthening Achieving independence - to improve, our physical therapists will perform initial evaluation of pt's status upon admission and devise an individualized program for Community Reintegration Activities - Occupational Therapy ADL deficits - to improve, our occupation therapists will perform initial evaluation of pt's status upon admission and devise an individualized program for Bathing, Bed mobility, Community Reintegratio n, Cooking, Dressing, Eating, Fine Motor Skills, Grooming, Homemaking, Kitchen Mobility, Laundry, Pat ient Education, Safety Awareness, Splinting - Positioning, Transfers(Toilet, Tub, Shower), and Wheel Chair Management Need for skin care specialist - to improve, our occupation therapists will perform initial evaluation of pt's status upon admission and devise an individualized program for Caregiver Training Weakness - to improve, our occupation therapists will perform initial evaluation of pt's status upon admission and devise an individualized program for Aquatic Therapy, Balance, Endurance, UE ROM, and UE strengthening - Diet Type Continue Regular - Diet - Liquid Texture Continue Regular - Tube Feed Continue N/A - Lab Results blood Sugar Check ACHS - Bladder care per protocol - Weight Bearing Precaution WBAT right LE - Skin care per protocol - Diet - Solid Texture Continue Regular - Shower allowing shower for Dementia, TBI, Stroke, or others FUNCTIONAL STATUS: UPDATED AT WEEKLY TEAM CONFERENCE - Bladder Same accident frequency: 7-Ind - No accidents in the past 7 days - Bowel Same accident frequency: 7-Ind - No accidents in the past 7 days - Walking Same score based on distance walked: 0(N/A) - Wheelchair Same score based on distance traveled: 0(N/A) FUNCTIONAL STATUS: - Self-Care A. Eating sup B. Grooming sup C. Bathing Erinn D. Dressing - Upper modA E. Dressing - Lower modA F. Toileting Erinn - Sphincter Control G: Bladder control Ind H: Bowel control Ind - Transfers Control I. Bed/Chair/Wheelchair Erinn J. Toilet Erinn K. Tub/Shower ADNO - Locomotion L. Walk/Wheelchair (C) modA L. Walk/Wheelchair (W) modA M. Stairs ADNO - Communication N. Comprehension (B) Harlan O. Expression (B) Harlan - Social Cognition P. Social Interaction Harlan Q. Problem Solving Harlan R. Memory Harlan - Endurance Fair - Balance Fair - Safety Awareness Fair CURRENT FUNC. 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
[2019-02-02] MEDS: TAMSULOSIN 0.4 MG SR CAP PO SCH (20:18)
[2019-02-02] MEDS: ENOXAPARIN 30 MG/0.3 ML SQ SCH (20:18)
[2019-02-02] MEDS: SIMVASTATIN 80 MG PO SCH (20:18)
--- NOTE | 2019-02-02 23:27 | PN ---
Date of Progress Note: 02/02/2019 Subjective: The patient was seen this morning for followup. He was sitting at bedside, awake, alert , not in any distress. His blood sugar was low again this morning; and upon further questioning, onealu nd out that he did not eat. Last night, he had a snack, same snack that he ate the night before last . I have instructed him and nursing staff the snack that he had night before last, which was peanut butter sandwich and nuts, that is what he should eat every night, and nurse was advised to make sure that he gets that same snack every night. So, we would like to have some consistency on snack every night and see what happens with his blood sugar. Objective: Vital Signs: Reviewed. HEENT: Examination unremarkable. Lungs: Clear to auscultation. Heart: Sounds normal. Abdomen: Soft. Bowel sounds normal. No guarding, rigidity, tenderness, or distention. Extremities: No leg edema. Impression: 1.Hypoglycemia. 2.Diabetes mellitus, uncontrolled. 3.Stroke. 4.Hypertension. 5.Coronary artery disease. Plan: We will continue Lantus 55 units subcutaneous injection every morning. During daytime, his bl ood sugar is between 200 to 250; but translator, he drops his blood sugar, and we are trying to co ntrol that by bedtime snack with some consistent same type of snack every night; and hopefully, that will resolve the problem. We will continue current medications including aspirin, Plavix, and folic acid. Continue physical therapy under guidance of Dr. Brewster. I will see him tomorrow for followup. AUNG/MODL Voice ID: [id number] Report ID: [id number]
--- NOTE | 2019-02-03 01:08 | FAST ---
SHIFT START DATE/TIME: 02/02/2019 19:00 (RESPOOLER) SHIFT END DATE/TIME: 02/03/2019 07:00 (RESPOOLER) NAME ALISSON HERNANDEZ DATE OF : 1930 DATE OF ADMISSION: 01/26/2019 13:45 (RESPOOLER) PHONE: AGE: 88 SSN# [id number] GENDER: Male ENCOUNTER PHYSICIAN: Dr. Sabino Brewster M.D. ADMISSION DIAGNOSIS: - Stroke 01 - Right Body (Left Brain) (01.2) Acute left inferior cerebellar infarct. EATING: Activity did not occur on this shift EATING - SCORE: 0-UNK GROOMING: Activity did not occur on this shift GROOMING - SCORE: 0-UNK BATHING: Activity did not occur on this shift BATHING - SCORE: 0-UNK DRESSING - UPPER BODY: Patient is not dressing in public clothing ARTICLES SCORE Total number of steps: 0 DRESSING - UPPER BODY - SCORE: 0-UNK DRESSING - LOWER BODY: Patient is not dressing in public clothing ARTICLES SCORE Total number of steps: 0 DRESSING - LOWER BODY - SCORE: 0-UNK TOILETING: TOILETING - STEP 1: Does the patient require the assistance of a person or device, or need extra time with toileting? Yes . TOILETING - STEP 2: Does the patient require the assistance of a helper? Yes. TOILETING - STEP 3: How much assistance does the patient require from the helper? Hands-on assistance from the helper TOILETING - STEP 4: Of the 3 tasks: 1) Adjusting clothing prior to use, 2) Cleansing of perineal area, 3) Adjusting clot gregor after use; How many tasks does the patient perform WITHOUT assistance of the helper? Three tasks with steadying assistance from the helper TOILETING - SCORE: 4-MIN BLADDER MANAGEMENT: BLADDER MANAGEMENT - STEP 1: Does the patient control the bladder completely and intentionally without equipment or devices or med ications, and is always continent? No. BLADDER MANAGEMENT - STEP 2: Does the patient require the assistance of a helper? Yes. BLADDER MANAGEMENT - STEP 3: How much assistance does the patient require from the helper? Patient requires contact assistance fro m the helper BLADDER MANAGEMENT - STEP 4: How much contact assistance does the patient require from the helper? Patient requires moderate shantell tance, and performs 50% to 75% of bladder management tasks - Alma positions AND holds urinal or bed luna BLADDER MANAGEMENT - SCORE: 3-MOD BOWEL MANAGEMENT: Activity did not occur on this shift BOWEL MANAGEMENT - SCORE: 7-IND TRANSFERS: BED, CHAIR, WHEELCHAIR: TRANSFERS: BED, CHAIR, WHEELCHAIR - STEP 1: Does the patient require assistance of a person or device, or need extra time with bed, chair, or whe elchair transfers? Yes. TRANSFERS: BED, CHAIR, WHEELCHAIR - STEP 2: Does the patient require the assistance of a helper? Yes. TRANSFERS: BED, CHAIR, WHEELCHAIR - STEP 3: How much assistance does the patient require from the helper? Lifting of the legs TRANSFERS: BED, CHAIR, WHEELCHAIR - STEP 4: How many legs does the patient require the helper to lift? both legs TRANSFERS: BED, CHAIR, WHEELCHAIR - SCORE: 3-MOD TRANSFERS: TOILET: TRANSFERS: TOILET - STEP 1: Does the patient require the assistance of a person or device, or need extra time with toilet transfe rs? Yes. TRANSFERS: TOILET - STEP 2: Does the patient require the assistance of a helper? Yes. TRANSFERS: TOILET - STEP 3: How much assistance does the patient require from the helper? Patient performs half or more of the tr ansferring tasks TRANSFERS: TOILET - STEP 4: Does the patient need only incidental help such as contact guard or steadying during toilet transfer? Yes. TRANSFERS: TOILET - SCORE: 4-MIN TRANSFERS: SHOWER: Activity did not occur on this shift TRANSFERS: SHOWER - SCORE: 0-UNK TRANSFERS: TUB: Activity did not occur on this shift TRANSFERS: TUB - SCORE: 0-UNK LOCOMOTION: WALK: Activity did not occur on this shift LOCOMOTION: WALK - SCORE: 0-UNK LOCOMOTION: WHEELCHAIR: Activity did not occur on this shift LOCOMOTION: WHEELCHAIR - SCORE: 0-UNK COMPREHENSION: COMPREHENSION: TYPE: Both COMPREHENSION - STEP 1: Does the patient require help from a person or device, or need extra time to understand complex and a bstract ideas (such as current events, finances, discharge planning, medical issues, relationships, e tc)? Yes. COMPREHENSION - STEP 2: Does the patient require help to understand questions or statements about basic needs or ideas (such as hunger, thirst, sleep, safety, daily schedule, room location, or discomfort) half or more of the t ld? No. COMPREHENSION - STEP 3: How often does the patient need help to understand directions and conversation about basic needs? 10% - 24% of the time COMPREHENSION - SCORE: 4-MIN EXPRESSION EXPRESSION: TYPE: Both EXPRESSION - STEP 1: Does the patient require help from a person or device, or need extra time expressing complex and abst ract ideas (such as current events, finances, discharge planning, medical issues, relationships, etc) ? Yes. EXPRESSION - STEP 2: Does the patient require help to express basic necessities or ideas (such as hunger, thirst, sleep, s afety, daily schedule, room location, or discomfort) half or more of the time? No. EXPRESSION - STEP 3: How often does the patient need help to express directions and conversation about basic needs? 10-24% of the time EXPRESSION - SCORE: 4-MIN SOCIAL INTERACTION: SOCIAL INTERACTION - STEP 1: Does the patient require a helper to interact with others in social and therapeutic situations? No. SOCIAL INTERACTION - STEP 2: Does the patient need extra time in social situations, OR does s/he interact with staff, other patien ts, and family members ONLY in structured environments, OR does s/he require medication for social in teraction? Yes, patient needs extra time SOCIAL INTERACTION - SCORE: 6-SINGH PROBLEM SOLVING: Patient requires bed/chair alarms due to attempts to get up unassisted when helper is needed. PROBLEM SOLVING - STEP 1: How often do the bed/chair alarms go off? Occasionally - the alarms go off about 25% or less PROBLEM SOLVING - SCORE: 4-MIN MEMORY: MEMORY - STEP 1: How often do the bed/chair alarms go off? Occasionally - the alarms go off about 25% of the time or l ess MEMORY - SCORE: 4-MIN SIGNATURE PANEL: The following modified sections: Eating - Score, Grooming - Score, Bathing - Score, Dressing - Upper Body - Score, Dressing - Lower Body - Score, Toileting - Score, Bladder Management - Score, Bowel Man agement - Score, Transfers: Bed, Chair, Wheelchair - Score, Transfers: Toilet - Score, Transfers: Iris wer - Score, Transfers: Tub - Score, Locomotion: Walk - Score, Locomotion: Wheelchair - Score, Compre hension - Score, Expression - Score, Social Interaction - Score, Problem Solving - Score, Memory - Sc ore were [electronically] signed by Ileana Cleary CNA on FriFeb 03 2019 01:07:35 T-0600 ([facility])
[2019-02-03] MEDS: METOPROLOL XL 50 MG TAB PO SCH (04:59)
[2019-02-03] MEDS: LEVOTHYROXINE 88 MCG PO SCH (06:16)
[2019-02-03] MEDS: LEVOTHYROXINE 200 MCG PO SCH (06:16)
[2019-02-03] MEDS: FOLIC ACID 1 MG TABLET PO SCH (07:54)
[2019-02-03] MEDS: MULTIVITAMIN TAB PO SCH (07:54)
[2019-02-03] MEDS: CLOPIDOGREL 75 MG TABLET PO SCH (07:54)
[2019-02-03] MEDS: BUMETANIDE 2 MG TABLET PO SCH (07:54)
[2019-02-03] MEDS: ASPIRIN EC 81 MG TAB PO SCH (07:55)
[2019-02-03] MEDS: ISOSORBIDE MONO SR 30 MG TAB PO SCH (07:55)
[2019-02-03] MEDS: INSULIN -REGULAR HUMAN 50 UNIT/0.5 ML ML SQ SCH ×4 (07:57→20:41)
[2019-02-03] MEDS: INSULIN GLARGINE 100 UNITS/ML SQ SCH (07:58)
[2019-02-03] MEDS ORDERED: LEVOTHYROXINE 88 MCG PO SCH (10:59)
[2019-02-03] MEDS ORDERED: METOPROLOL 50MG PO SCH (10:59)
[2019-02-03] MEDS ORDERED: ASPIRIN 81MG PO SCH (10:59)
[2019-02-03] MEDS ORDERED: FLOMAX 0.4 MG PO SCH (10:59)
--- NOTE | 2019-02-03 13:19 | FAST ---
ENCOUNTER DATE AND TIME: 02/03/2019 08:00 (CUSTOM GARMENT DESIGNER) NAME ALISSON HERNANDEZ DATE OF : 1930 DATE OF ADMISSION: 01/26/2019 13:45 (CUSTOM GARMENT DESIGNER) PHONE: AGE: 88 N# [id number] GENDER: Male ENCOUNTER PHYSICIAN: Dr. Sabino Brewster M.D. ADMISSION DIAGNOSIS: - Stroke 01 - Right Body (Left Brain) (01.2) Acute left inferior cerebellar infarct. EATING: EATING - STEP 1: Does the patient require the assistance of a person or device, or need extra time when eating? No. EATING - SCORE: 7-IND GROOMING: Comb/brush hair Oral care Wash, rinse, and dry face Wash, rinse, and dry hands GROOMING - STEP 1: Does the patient require the assistance of a person or device, or need extra time when grooming? No. GROOMING - SCORE: 7-IND BATHING: Abdomen Buttocks Chest Left arm Left lower leg and foot Left upper leg Perineal area Right arm Right lower leg and foot Right upper leg BATHING - STEP 1: Does the patient require the assistance of a person or device, or need extra time when bathing? Yes. BATHING - STEP 2: Does the patient require the assistance of a helper? Yes. BATHING - STEP 3: How much assistance does the patient require from the helper? Only incidental help such as placement of a wash cloth in his/her hand a few times as s/he bathes OR help to bathe just one or two areas of the body BATHING - SCORE: 4-MIN DRESSING - UPPER BODY: T-shirt/pullover shirt (four steps) ARTICLES SCORE Total number of steps: 4 DRESSING - UPPER BODY - STEP 1: Does the patient require help from a person or device, or need extra time when dressing above the [address]? No. DRESSING - UPPER BODY - SCORE: 7-IND DRESSING - LOWER BODY: Elastic waist pants (three steps) Slip-on shoe - Left foot (one step) Slip-on shoe - Right foot (one step) Underwear (three steps) ARTICLES SCORE Total number of steps: 8 DRESSING - LOWER BODY - STEP 1: Does the patient require help from a person or device, or need extra time when dressing below the [address]? Yes. DRESSING - LOWER BODY - STEP 2: Does the patient require the assistance of a helper? Yes. DRESSING - LOWER BODY - STEP 3: Does the helper touch the patient while dressing? Yes. DRESSING - LOWER BODY - STEP 4: How many of the total steps does the patient complete on his/her own? 8 DRESSING - LOWER BODY - SCORE: 4-MIN TOILETING: TOILETING - STEP 1: Does the patient require the assistance of a person or device, or need extra time with toileting? Yes . TOILETING - STEP 2: Does the patient require the assistance of a helper? Yes. TOILETING - STEP 3: How much assistance does the patient require from the helper? Hands-on assistance from the helper TOILETING - STEP 4: Of the 3 tasks: 1) Adjusting clothing prior to use, 2) Cleansing of perineal area, 3) Adjusting clot gregor after use; How many tasks does the patient perform WITHOUT assistance of the helper? Three tasks with steadying assistance from the helper TOILETING - SCORE: 4-MIN BLADDER MANAGEMENT: Activity did not occur on this shift BLADDER MANAGEMENT - SCORE: 7-IND BOWEL MANAGEMENT: Activity did not occur on this shift BOWEL MANAGEMENT - SCORE: 7-IND TRANSFERS: BED, CHAIR, WHEELCHAIR: Activity did not occur on this shift TRANSFERS: BED, CHAIR, WHEELCHAIR - SCORE: 0-UNK TRANSFERS: TOILET: TRANSFERS: TOILET - STEP 1: Does the patient require the assistance of a person or device, or need extra time with toilet transfe rs? Yes. TRANSFERS: TOILET - STEP 2: Does the patient require the assistance of a helper? Yes. TRANSFERS: TOILET - STEP 3: How much assistance does the patient require from the helper? Patient performs half or more of the tr ansferring tasks TRANSFERS: TOILET - STEP 4: Does the patient need only incidental help such as contact guard or steadying during toilet transfer? Yes. TRANSFERS: TOILET - SCORE: 4-MIN TRANSFERS: SHOWER: Activity did not occur on this shift TRANSFERS: SHOWER - SCORE: 0-UNK TRANSFERS: TUB: TRANSFERS: TUB - STEP 1: Does the patient require the assistance of a person or device, or need extra time with tub transfers? Yes. TRANSFERS: TUB - STEP 2: Does the patient require the assistance of a helper? Yes. TRANSFERS: TUB - STEP 3: How much assistance does the patient require from the helper? Incidental help such as contact guardin g or steadying, OR help to lift one leg into the tub TRANSFERS: TUB - SCORE: 4-MIN LOCOMOTION: WALK: Activity did not occur on this shift LOCOMOTION: WALK - SCORE: 0-UNK LOCOMOTION: WHEELCHAIR: Activity did not occur on this shift LOCOMOTION: WHEELCHAIR - SCORE: 0-UNK LOCOMOTION: STAIRS: Activity did not occur on this shift LOCOMOTION: STAIRS - SCORE: 0-UNK COMPREHENSION: COMPREHENSION: TYPE: Both COMPREHENSION - STEP 1: Does the patient require help from a person or device, or need extra time to understand complex and a bstract ideas (such as current events, finances, discharge planning, medical issues, relationships, e tc)? No. COMPREHENSION - STEP 2: Does the patient need extra time, require an assistive device (such as glasses for visual comprehensi on or a hearing aid for auditory comprehension) or does s/he have mild difficulty understanding compl ex and abstract information? Yes. COMPREHENSION - SCORE: 6-SINGH EXPRESSION EXPRESSION: TYPE: Both EXPRESSION - STEP 1: Does the patient require help from a person or device, or need extra time expressing complex and abst ract ideas (such as current events, finances, discharge planning, medical issues, relationships, etc) ? No. EXPRESSION - STEP 2: Does the patient need extra time, require an assistive device (such as augmentive communication syste m or a communication board), OR does s/he have mild difficulty expressing complex and abstract ideas (including mild dysarthria or mild word-find problems)? No. EXPRESSION - SCORE: 7-IND SOCIAL INTERACTION: SOCIAL INTERACTION - STEP 1: Does the patient require a helper to interact with others in social and therapeutic situations? No. SOCIAL INTERACTION - STEP 2: Does the patient need extra time in social situations, OR does s/he interact with staff, other patien ts, and family members ONLY in structured environments, OR does s/he require medication for social in teraction? No. SOCIAL INTERACTION - SCORE: 7-IND PROBLEM SOLVING: PROBLEM SOLVING - STEP 1: Does the patient need help from a person or device, or need extra time to solve complex problems such as managing a checking account or confronting interpersonal problems? No. PROBLEM SOLVING - STEP 2: Does the patient require extra time to make decisions or solve problems, OR does s/he have slight dif ficulty reading, initiating, or self-correcting in unfamiliar situations? Yes, patient needs extra ti me. PROBLEM SOLVING - SCORE: 6-SINGH MEMORY: MEMORY - STEP 1: Does the patient need help from a person or device, or need extra time to remember frequently encount ered people, daily routines, and executing requests? No. MEMORY - STEP 2: Does the patient have slight difficulty recognizing frequently encountered people, daily routines, or executing requests without the need for repetition or using self-initiated or environmental cues to remember? Yes. MEMORY - SCORE: 6-SINGH SIGNATURE PANEL: The following modified sections: Eating - Score, Grooming - Score, Bathing - Score, Dressing - Upper Body - Score, Dressing - Lower Body - Score, Toileting - Score, Transfers: Bed, Chair, Wheelchair - S core, Transfers: Toilet - Score, Transfers: Shower - Score, Transfers: Tub - Score, Comprehension - S core, Expression - Score, Social Interaction - Score, Problem Solving - Score, Memory - Score were [e lectronically] signed by Mita Triplett OT on FriFeb 03 2019 13:19:07 T-0600 ([facility])
--- NOTE | 2019-02-03 14:11 | FAST ---
ENCOUNTER DATE AND TIME: 02/03/2019 08:00 (ENVIRONMENTAL ENGINEERING MANAGER) NAME ALISSON HERNANDEZ DATE OF : 1930 DATE OF ADMISSION: 01/26/2019 13:45 (ENVIRONMENTAL ENGINEERING MANAGER) PHONE: AGE: 88 N# [id number] GENDER: Male ENCOUNTER PHYSICIAN: Dr. Sabino Brewster M.D. ADMISSION DIAGNOSIS: - Stroke 01 - Right Body (Left Brain) (01.2) Acute left inferior cerebellar infarct. EATING: Activity did not occur on this shift EATING - SCORE: 0-UNK GROOMING: Activity did not occur on this shift GROOMING - SCORE: 0-UNK BATHING: Activity did not occur on this shift BATHING - SCORE: 0-UNK DRESSING - UPPER BODY: Activity did not occur on this shift Patient is not dressing in public clothing ARTICLES SCORE Total number of steps: 0 DRESSING - UPPER BODY - SCORE: 0-UNK DRESSING - LOWER BODY: Activity did not occur on this shift Patient is not dressing in public clothing ARTICLES SCORE Total number of steps: 0 DRESSING - LOWER BODY - SCORE: 0-UNK TOILETING: Activity did not occur on this shift TOILETING - SCORE: 0-UNK BLADDER MANAGEMENT: Activity did not occur on this shift BLADDER MANAGEMENT - SCORE: 7-IND BOWEL MANAGEMENT: Activity did not occur on this shift BOWEL MANAGEMENT - SCORE: 7-IND TRANSFERS: BED, CHAIR, WHEELCHAIR: TRANSFERS: BED, CHAIR, WHEELCHAIR - STEP 1: Does the patient require assistance of a person or device, or need extra time with bed, chair, or whe elchair transfers? Yes. TRANSFERS: BED, CHAIR, WHEELCHAIR - STEP 2: Does the patient require the assistance of a helper? Yes. TRANSFERS: BED, CHAIR, WHEELCHAIR - STEP 3: How much assistance does the patient require from the helper? Steadying/guiding assistance TRANSFERS: BED, CHAIR, WHEELCHAIR - SCORE: 4-MIN TRANSFERS: TOILET: Activity did not occur on this shift TRANSFERS: TOILET - SCORE: 0-UNK TRANSFERS: SHOWER: Activity did not occur on this shift TRANSFERS: SHOWER - SCORE: 0-UNK TRANSFERS: TUB: Activity did not occur on this shift TRANSFERS: TUB - SCORE: 0-UNK LOCOMOTION: WALK: LOCOMOTION: WALK - STEP 1: Does the patient need help from a person or device, or need extra time to walk 150 feet? Yes. LOCOMOTION: WALK - STEP 2: How much assistance does the patient require to walk a minimum of 150 feet? Only incidental help such as contact guarding or steadying LOCOMOTION: WALK - SCORE: 4-MIN LOCOMOTION: WHEELCHAIR: LOCOMOTION: WHEELCHAIR - STEP 1: Does the patient need help to go 150 feet in a wheelchair? Yes. LOCOMOTION: WHEELCHAIR - STEP 2: How much assistance does the patient need from the helper? Only supervision, cuing, or coaxing LOCOMOTION: WHEELCHAIR - SCORE: 5-SUP LOCOMOTION: STAIRS: Activity did not occur on this shift LOCOMOTION: STAIRS - SCORE: 0-UNK COMPREHENSION: COMPREHENSION - SCORE: 0-UNK EXPRESSION EXPRESSION - SCORE: 0-UNK SOCIAL INTERACTION: SOCIAL INTERACTION - SCORE: 0-UNK PROBLEM SOLVING: PROBLEM SOLVING - SCORE: 0-UNK MEMORY: MEMORY - SCORE: 0-UNK SIGNATURE PANEL: The following modified sections: Transfers: Bed, Chair, Wheelchair - Score, Transfers: Toilet - Score , Locomotion: Walk - Score, Locomotion: Wheelchair - Score, Locomotion: Stairs - Score were [nate [email or web address]] signed by Su Roberts PTA on FriFeb 03 2019 14:10:21 GMT-0600 (Central Standard Time)
--- NOTE | 2019-02-03 16:42 | FAST ---
SHIFT START DATE/TIME: 02/03/2019 07:00 (RESEARCH SOIL SCIENTIST) SHIFT END DATE/TIME: 02/03/2019 19:00 (RESEARCH SOIL SCIENTIST) NAME ALISSON HERNANDEZ DATE OF : 1930 DATE OF ADMISSION: 01/26/2019 13:45 (RESEARCH SOIL SCIENTIST) PHONE: AGE: 88 N# [id number] GENDER: Male ENCOUNTER PHYSICIAN: Dr. Sabino Brewster M.D. ADMISSION DIAGNOSIS: - Stroke 01 - Right Body (Left Brain) (01.2) Acute left inferior cerebellar infarct. EATING: EATING - STEP 1: Does the patient require the assistance of a person or device, or need extra time when eating? Yes. EATING - STEP 2: Does the patient require the assistance of a helper? Yes. EATING - STEP 3: Does the patient perform half or more of the eating tasks? Yes. EATING - STEP 4: Does the patient need only supervision, cuing, coaxing OR help to apply an orthosis OR help to cut fo od, open containers, pour liquids, or butter bread? Yes. EATING - SCORE: 5-SUP GROOMING: Comb/brush hair Oral care Wash, rinse, and dry face Wash, rinse, and dry hands GROOMING - STEP 1: Does the patient require the assistance of a person or device, or need extra time when grooming? Yes. GROOMING - STEP 2: Does the patient require the assistance of a helper? Yes. GROOMING - STEP 3: How much assistance does the patient require from the helper? Only prior equipment preparation/set up from the helper GROOMING - SCORE: 5-SUP BATHING: Activity did not occur on this shift BATHING - SCORE: 0-UNK DRESSING - UPPER BODY: T-shirt/pullover shirt (four steps) ARTICLES SCORE Total number of steps: 4 DRESSING - UPPER BODY - STEP 1: Does the patient require help from a person or device, or need extra time when dressing above the [address]? Yes. DRESSING - UPPER BODY - STEP 2: Does the patient require the assistance of a helper? Yes. DRESSING - UPPER BODY - STEP 3: Does the helper touch the patient while dressing? Yes. DRESSING - UPPER BODY - STEP 4: How many of the total steps does the patient complete on his/her own? 2 DRESSING - UPPER BODY - SCORE: 3-MOD DRESSING - LOWER BODY: Sock - Left foot (one step) Sock - Right foot (one step) Zippered pants (four steps) ARTICLES SCORE Total number of steps: 6 DRESSING - LOWER BODY - STEP 1: Does the patient require help from a person or device, or need extra time when dressing below the [address]? Yes. DRESSING - LOWER BODY - STEP 2: Does the patient require the assistance of a helper? Yes. DRESSING - LOWER BODY - STEP 3: Does the helper touch the patient while dressing? Yes. DRESSING - LOWER BODY - STEP 4: How many of the total steps does the patient complete on his/her own? 4 DRESSING - LOWER BODY - SCORE: 3-MOD TOILETING: TOILETING - STEP 1: Does the patient require the assistance of a person or device, or need extra time with toileting? Yes . TOILETING - STEP 2: Does the patient require the assistance of a helper? Yes. TOILETING - STEP 3: How much assistance does the patient require from the helper? Hands-on assistance from the helper TOILETING - STEP 4: Of the 3 tasks: 1) Adjusting clothing prior to use, 2) Cleansing of perineal area, 3) Adjusting clot gregor after use; How many tasks does the patient perform WITHOUT assistance of the helper? Three tasks with steadying assistance from the helper TOILETING - SCORE: 4-MIN BLADDER MANAGEMENT: BLADDER MANAGEMENT - STEP 1: Does the patient control the bladder completely and intentionally without equipment or devices or med ications, and is always continent? No. BLADDER MANAGEMENT - STEP 2: Does the patient require the assistance of a helper? Yes. BLADDER MANAGEMENT - STEP 3: How much assistance does the patient require from the helper? Only supervision, stand-by, cuing, or c oaxing BLADDER MANAGEMENT - SCORE: 5-SUP BLADDER MANAGEMENT - FREQUENCY OF ACCIDENTS: BLADDER MANAGEMENT(FA) - STEP 1: How many accidents has the patient had during the current shift? 0 BOWEL MANAGEMENT: Activity did not occur on this shift BOWEL MANAGEMENT - SCORE: 7-IND BOWEL MANAGEMENT - FREQUENCY OF ACCIDENTS: BOWEL MANAGEMENT(FA) - STEP 1: How many accidents has the patient had during the current shift? 0 TRANSFERS: BED, CHAIR, WHEELCHAIR: TRANSFERS: BED, CHAIR, WHEELCHAIR - STEP 1: Does the patient require assistance of a person or device, or need extra time with bed, chair, or whe elchair transfers? Yes. TRANSFERS: BED, CHAIR, WHEELCHAIR - STEP 2: Does the patient require the assistance of a helper? Yes. TRANSFERS: BED, CHAIR, WHEELCHAIR - STEP 3: How much assistance does the patient require from the helper? Steadying/guiding assistance TRANSFERS: BED, CHAIR, WHEELCHAIR - SCORE: 4-MIN TRANSFERS: TOILET: TRANSFERS: TOILET - STEP 1: Does the patient require the assistance of a person or device, or need extra time with toilet transfe rs? Yes. TRANSFERS: TOILET - STEP 2: Does the patient require the assistance of a helper? Yes. TRANSFERS: TOILET - STEP 3: How much assistance does the patient require from the helper? Patient performs half or more of the tr ansferring tasks TRANSFERS: TOILET - STEP 4: Does the patient need only incidental help such as contact guard or steadying during toilet transfer? Yes. TRANSFERS: TOILET - SCORE: 4-MIN TRANSFERS: SHOWER: Activity did not occur on this shift TRANSFERS: SHOWER - SCORE: 0-UNK TRANSFERS: TUB: Activity did not occur on this shift TRANSFERS: TUB - SCORE: 0-UNK LOCOMOTION: WALK: Activity did not occur on this shift LOCOMOTION: WALK - SCORE: 0-UNK LOCOMOTION: WHEELCHAIR: LOCOMOTION: WHEELCHAIR - STEP 1: Does the patient need help to go 150 feet in a wheelchair? Yes. LOCOMOTION: WHEELCHAIR - STEP 2: How much assistance does the patient need from the helper? Only supervision, cuing, or coaxing LOCOMOTION: WHEELCHAIR - SCORE: 5-SUP COMPREHENSION: COMPREHENSION: TYPE: Both COMPREHENSION - STEP 1: Does the patient require help from a person or device, or need extra time to understand complex and a bstract ideas (such as current events, finances, discharge planning, medical issues, relationships, e tc)? Yes. COMPREHENSION - STEP 2: Does the patient require help to understand questions or statements about basic needs or ideas (such as hunger, thirst, sleep, safety, daily schedule, room location, or discomfort) half or more of the t ld? No. COMPREHENSION - STEP 3: How often does the patient need help to understand directions and conversation about basic needs? 10% - 24% of the time COMPREHENSION - SCORE: 4-MIN EXPRESSION EXPRESSION: TYPE: Both EXPRESSION - STEP 1: Does the patient require help from a person or device, or need extra time expressing complex and abst ract ideas (such as current events, finances, discharge planning, medical issues, relationships, etc) ? Yes. EXPRESSION - STEP 2: Does the patient require help to express basic necessities or ideas (such as hunger, thirst, sleep, s afety, daily schedule, room location, or discomfort) half or more of the time? No. EXPRESSION - STEP 3: How often does the patient need help to express directions and conversation about basic needs? 10-24% of the time EXPRESSION - SCORE: 4-MIN SOCIAL INTERACTION: SOCIAL INTERACTION - STEP 1: Does the patient require a helper to interact with others in social and therapeutic situations? No. SOCIAL INTERACTION - STEP 2: Does the patient need extra time in social situations, OR does s/he interact with staff, other patien ts, and family members ONLY in structured environments, OR does s/he require medication for social in teraction? Yes, patient needs extra time SOCIAL INTERACTION - SCORE: 6-SINGH PROBLEM SOLVING: PROBLEM SOLVING - STEP 1: Does the patient need help from a person or device, or need extra time to solve complex problems such as managing a checking account or confronting interpersonal problems? Yes. PROBLEM SOLVING - STEP 2: Does the patient solve basic routine problems half or more of the time? Yes. PROBLEM SOLVING - STEP 3: How often does the patient need help to solve basic routine problems? 10%-24% of the time PROBLEM SOLVING - SCORE: 4-MIN MEMORY: MEMORY - STEP 1: Does the patient need help from a person or device, or need extra time to remember frequently encount ered people, daily routines, and executing requests? Yes. MEMORY - STEP 2: How often does the patient need help to remember frequently encountered people, daily routines, and e xecuting requests? Less than 10% of the time MEMORY - SCORE: 5-SUP SIGNATURE PANEL: The following modified sections: Eating - Score, Grooming - Score, Bathing - Score, Dressing - Upper Body - Score, Dressing - Lower Body - Score, Toileting - Score, Bowel Management - Score, Transfers: Bed, Chair, Wheelchair - Score, Transfers: Toilet - Score, Transfers: Shower - Score, Transfers: Tub - Score, Locomotion: Walk - Score, Locomotion: Wheelchair - Score, Comprehension - Score, Expression - Score, Social Interaction - Score, Problem Solving - Score, Memory - Score, Bladder Management - Sc ore were [electronically] signed by Jennifer Adame C.N.A. on FriFeb 03 2019 16:41:02 GMT-0600 ([facility] Standard Time)
--- NOTE | 2019-02-03 16:44 | PN ---
Date of Progress Note: 02/03/2019 Subjective: The patient is doing well. No nausea. No vomiting. Physical Examination: Vital Signs: Blood pressure 166/67, pulse of 64, afebrile. Chest: Clear to auscultation. Heart: S1, S2. Systolic murmur. Abdomen: Soft, nontender. Extremities: Plus edema. Laboratory Data: H and H 12.9/37.9. Sodium 140, potassium 3.9, bicarb 29, BUN 17, creatinine 2.1, c alcium 8.3, phosphorus 2.9. Current Medications: The patient on is, Bumex 2 mg daily, isosorbide, metoprolol 50 b.i.d., Levothyr oxine, simvastatin and Flomax. Assessment And Plan: 1.Chronic kidney disease, slightly on the over volume side. I am going to go ahead and increase the Bumex to 2 mg in the morning, 1 mg at night. 2.Hypertension, uncontrolled. We will increase the Bumex as above. 3.Edema as above. 4.Cerebrovascular accident. Continue PT/OT. LIA/AGUILA Voice ID: [id number] Report ID: [id number]
[2019-02-03] MEDS ORDERED: BUMEX 1 MG PO SCH (17:00)
[2019-02-03] MEDS: BUMETANIDE PO SCH (17:02)
[2019-02-03] MEDS: METOPROLOL SUCCINATE 50 MG PO SCH (17:04)
--- NOTE | 2019-02-03 17:35 | R.PN ---
ENCOUNTER DATE AND TIME: 02/03/2019 17:32 (ASSISTANT ACCOUNT EXECUTIVE) NAME ALISSON HERNANDEZ DATE OF : 1930 DATE OF ADMISSION: 01/26/2019 13:45 (ASSISTANT ACCOUNT EXECUTIVE) Acute left inferior cerebellar infarctCHIEF COMPLAINT: Left cerebellar stroke SUBJECTIVE: Pt denied any Shortness of Breath. Pt denied any depression. Wheelchair mobility done with contact guard assistance for 250'. Ambulated 264' with contact guard assistance using a rolling walker. Blood sugars 212 [address] Puga. VITAL SIGNS Temperature: 97.6 F SBP/DBP: 166/67 Pulse: 64 Resp: 16 MEDICATION ALLERGIES: No Known Drug Allergies (NKDA) ENVIRONMENTAL ALLERGIES: None Known - Substance Allergies None Known - Other Allergies None Known NURSING: - Shower allowing shower - Lab Results blood Sugar Check ACHS - Bladder care per protocol - Skin care per protocol PRECAUTIONS: - Weight Bearing Precaution WBAT right LE ACTIVITIES OOB only with supervision THERAPIES: - Occupational Therapy Evaluate and Treat. Visual Perceptual Training. Cognitive Retraining. - Speech Therapy Cognitive Training. Memory Strategies. Speech Intelligibility Training. Expressive Language Skills. R eceptive Language Skills. - Physical Therapy Evaluate and Treat. PHYSICAL EXAM - Gen Alert and awake Lying in bed No apparent distress Oriented to: person, time, and place - Skin No beakdown No abnormalities - Eyes No abnormalities - Neck No abnormalities - CVS RRR - Chest Clear - Abd + bowel sounds - GI Soft Deferred - No abnormalities - Ext No significant edema - MSK 4+/5 weakness in left upper and lower extremities. - Neuro 4/5 strength left upper and lower extremities. - Psych No abnormalities ASSESSMENT: Pt. is a 88 yo Right-handed white male.On 01/21/2019 Pt. presented to [facility] with sudden onset of right-side weakness.On 01/21/2019 he was admitted to [facility] with diagnosis Acute left inferior cerebellar infarct.His impairment category is Stroke 01 - Right Body (Left Brain) (01.2).Pre-morbidly, Pt. was independent/mod-I in Self-Care, Locomotion, Sph incter Control, Transfers Control, Communication, and Social Cognition; and he had good Sphincter Con trol.Currently, he has deficits of Balance, Self-Care, Locomotion, Endurance, Safety Awareness, and T ransfers Control.Pt. is now referred to [facility] for acute in-patient rehabi litation in order to maximize patient's functional independence in activities of daily living, streng th, ROM, and mobility.- Rehab Goal Patient has realistic goal of being discharged at assistance level 6-Harlan to reside at Home with Fam es/Relatives. MDM/PLAN: - Physical Therapy Gait dysfunction - to improve, our physical therapists will perform initial evaluation of pt's statu s upon admission and devise an individualized program for Gait Training, and Wheel Chair mobility Inability to transfer - to improve, our physical therapists will perform initial evaluation of pt's status upon admission and devise an individualized program for Bed mobility Need for home safety evaluation - to improve, our physical therapists will perform initial evaluatio n of pt's status upon admission and devise an individualized program for Home Evaluation Need in caregiver upon discharge - to improve, our physical therapists will perform initial evaluati on of pt's status upon admission and devise an individualized program for Caregiver Training New precaution - to improve, our physical therapists will perform initial evaluation of pt's status upon admission and devise an individualized program for Patient precaution education Edema - to improve, our physical therapists will perform initial evaluation of pt's status upon admi ssion and devise an individualized program for Elevation Training, and Lymphedema Therapy Poor balance - to improve, our physical therapists will perform initial evaluation of pt's status up on admission and devise an individualized program for Balance Training Poor endurance - to improve, our physical therapists will perform initial evaluation of pt's status upon admission and devise an individualized program for Endurance Training Weakness - to improve, our physical therapists will perform initial evaluation of pt's status upon a dmission and devise an individualized program for Aquatic Therapy, Neuromuscular Reeducation, and Str engthening Achieving independence - to improve, our physical therapists will perform initial evaluation of pt's status upon admission and devise an individualized program for Community Reintegration Activities - Occupational Therapy ADL deficits - to improve, our occupation therapists will perform initial evaluation of pt's status upon admission and devise an individualized program for Bathing, Bed mobility, Community Reintegratio n, Cooking, Dressing, Eating, Fine Motor Skills, Grooming, Homemaking, Kitchen Mobility, Laundry, Pat ient Education, Safety Awareness, Splinting - Positioning, Transfers(Toilet, Tub, Shower), and Wheel Chair Management Need for career center director - to improve, our occupation therapists will perform initial evaluation of pt's status upon admission and devise an individualized program for Caregiver Training Weakness - to improve, our occupation therapists will perform initial evaluation of pt's status upon admission and devise an individualized program for Aquatic Therapy, Balance, Endurance, UE ROM, and UE strengthening - Diet Type Continue Regular - Diet - Liquid Texture Continue Regular - Tube Feed Continue N/A - Lab Results blood Sugar Check ACHS - Bladder care per protocol - Weight Bearing Precaution WBAT right LE - Skin care per protocol - Diet - Solid Texture Continue Regular - Shower allowing shower for Dementia, TBI, Stroke, or others FUNCTIONAL STATUS: UPDATED AT WEEKLY TEAM CONFERENCE - Bladder Same accident frequency: 7-Ind - No accidents in the past 7 days - Bowel Same accident frequency: 7-Ind - No accidents in the past 7 days - Walking Same score based on distance walked: 0(N/A) - Wheelchair Same score based on distance traveled: 0(N/A) FUNCTIONAL STATUS: - Self-Care A. Eating sup B. Grooming sup C. Bathing Erinn D. Dressing - Upper modA E. Dressing - Lower modA F. Toileting Erinn - Sphincter Control G: Bladder control Ind H: Bowel control Ind - Transfers Control I. Bed/Chair/Wheelchair Erinn J. Toilet Erinn K. Tub/Shower ADNO - Locomotion L. Walk/Wheelchair (C) modA L. Walk/Wheelchair (W) modA M. Stairs ADNO - Communication N. Comprehension (B) Harlan O. Expression (B) Harlan - Social Cognition P. Social Interaction Harlan Q. Problem Solving Harlan R. Memory Harlan - Endurance Fair - Balance Fair - Safety Awareness Fair CURRENT FUNC. DEFICITS: Balance, Self-Care, Locomotion, Endurance, Safety Awareness, and Transfers Control SIGNATURE PANEL: (ASSISTANT ACCOUNT EXECUTIVE)
[2019-02-03] MEDS: ENOXAPARIN 30 MG/0.3 ML SQ SCH (20:33)
[2019-02-03] MEDS: SIMVASTATIN 80 MG PO SCH (20:34)
[2019-02-03] MEDS: TAMSULOSIN 0.4 MG PO SCH (20:34)
--- NOTE | 2019-02-04 00:56 | FAST ---
SHIFT START DATE/TIME: 02/03/2019 19:00 (VICE PRESIDENT BIOSTATISTICS) SHIFT END DATE/TIME: 02/04/2019 07:00 (VICE PRESIDENT BIOSTATISTICS) NAME ALISSON HERNANDEZ DATE OF : 1930 DATE OF ADMISSION: 01/26/2019 13:45 (VICE PRESIDENT BIOSTATISTICS) PHONE: AGE: 88 N# [id number] GENDER: Male ENCOUNTER PHYSICIAN: Dr. Sabino Brewster M.D. ADMISSION DIAGNOSIS: - Stroke 01 - Right Body (Left Brain) (01.2) Acute left inferior cerebellar infarct. EATING: Activity did not occur on this shift EATING - SCORE: 0-UNK GROOMING: Wash, rinse, and dry hands GROOMING - STEP 1: Does the patient require the assistance of a person or device, or need extra time when grooming? Yes. GROOMING - STEP 2: Does the patient require the assistance of a helper? Yes. GROOMING - STEP 3: How much assistance does the patient require from the helper? Cuing, coaxing, instructions, or encour agement for completion of grooming GROOMING - SCORE: 5-SUP BATHING: Activity did not occur on this shift BATHING - SCORE: 0-UNK DRESSING - UPPER BODY: Patient is not dressing in public clothing ARTICLES SCORE Total number of steps: 0 DRESSING - UPPER BODY - SCORE: 0-UNK DRESSING - LOWER BODY: Patient is not dressing in public clothing ARTICLES SCORE Total number of steps: 0 DRESSING - LOWER BODY - SCORE: 0-UNK TOILETING: TOILETING - STEP 1: Does the patient require the assistance of a person or device, or need extra time with toileting? Yes . TOILETING - STEP 2: Does the patient require the assistance of a helper? Yes. TOILETING - STEP 3: How much assistance does the patient require from the helper? Hands-on assistance from the helper TOILETING - STEP 4: Of the 3 tasks: 1) Adjusting clothing prior to use, 2) Cleansing of perineal area, 3) Adjusting clot gregor after use; How many tasks does the patient perform WITHOUT assistance of the helper? Two tasks TOILETING - SCORE: 3-MOD BLADDER MANAGEMENT: BLADDER MANAGEMENT - STEP 1: Does the patient control the bladder completely and intentionally without equipment or devices or med ications, and is always continent? No. BLADDER MANAGEMENT - STEP 2: Does the patient require the assistance of a helper? Yes. BLADDER MANAGEMENT - STEP 3: How much assistance does the patient require from the helper? Only supervision, stand-by, cuing, or c oaxing BLADDER MANAGEMENT - SCORE: 5-SUP BOWEL MANAGEMENT: BOWEL MANAGEMENT - STEP 1: Does the patient control bowels completely and intentionally without equipment devices or medications AND is always continent? No. BOWEL MANAGEMENT - STEP 2: Does the patient require the assistance of a helper? No, patient requires medication for control such as stool softeners, suppositories, laxatives, enemas, or OTC medications BOWEL MANAGEMENT - SCORE: 6-SINGH TRANSFERS: BED, CHAIR, WHEELCHAIR: TRANSFERS: BED, CHAIR, WHEELCHAIR - STEP 1: Does the patient require assistance of a person or device, or need extra time with bed, chair, or whe elchair transfers? Yes. TRANSFERS: BED, CHAIR, WHEELCHAIR - STEP 2: Does the patient require the assistance of a helper? Yes. TRANSFERS: BED, CHAIR, WHEELCHAIR - STEP 3: How much assistance does the patient require from the helper? Lifting of the legs TRANSFERS: BED, CHAIR, WHEELCHAIR - STEP 4: How many legs does the patient require the helper to lift? both legs TRANSFERS: BED, CHAIR, WHEELCHAIR - SCORE: 3-MOD TRANSFERS: TOILET: TRANSFERS: TOILET - STEP 1: Does the patient require the assistance of a person or device, or need extra time with toilet transfe rs? Yes. TRANSFERS: TOILET - STEP 2: Does the patient require the assistance of a helper? Yes. TRANSFERS: TOILET - STEP 3: How much assistance does the patient require from the helper? Patient performs half or more of the tr ansferring tasks TRANSFERS: TOILET - STEP 4: Does the patient need only incidental help such as contact guard or steadying during toilet transfer? No. Patient needs more than incidental help TRANSFERS: TOILET - SCORE: 3-MOD TRANSFERS: SHOWER: Activity did not occur on this shift TRANSFERS: SHOWER - SCORE: 0-UNK TRANSFERS: TUB: Activity did not occur on this shift TRANSFERS: TUB - SCORE: 0-UNK LOCOMOTION: WALK: Activity did not occur on this shift LOCOMOTION: WALK - SCORE: 0-UNK LOCOMOTION: WHEELCHAIR: Activity did not occur on this shift LOCOMOTION: WHEELCHAIR - SCORE: 0-UNK COMPREHENSION: COMPREHENSION: TYPE: Both COMPREHENSION - STEP 1: Does the patient require help from a person or device, or need extra time to understand complex and a bstract ideas (such as current events, finances, discharge planning, medical issues, relationships, e tc)? No. COMPREHENSION - STEP 2: Does the patient need extra time, require an assistive device (such as glasses for visual comprehensi on or a hearing aid for auditory comprehension) or does s/he have mild difficulty understanding compl ex and abstract information? Yes. COMPREHENSION - SCORE: 6-SINGH EXPRESSION EXPRESSION: TYPE: Both EXPRESSION - STEP 1: Does the patient require help from a person or device, or need extra time expressing complex and abst ract ideas (such as current events, finances, discharge planning, medical issues, relationships, etc) ? No. EXPRESSION - STEP 2: Does the patient need extra time, require an assistive device (such as augmentive communication syste m or a communication board), OR does s/he have mild difficulty expressing complex and abstract ideas (including mild dysarthria or mild word-find problems)? No. EXPRESSION - SCORE: 7-IND SOCIAL INTERACTION: SOCIAL INTERACTION - STEP 1: Does the patient require a helper to interact with others in social and therapeutic situations? No. SOCIAL INTERACTION - STEP 2: Does the patient need extra time in social situations, OR does s/he interact with staff, other patien ts, and family members ONLY in structured environments, OR does s/he require medication for social in teraction? Yes, patient needs extra time SOCIAL INTERACTION - SCORE: 6-SINGH PROBLEM SOLVING: PROBLEM SOLVING - STEP 1: Does the patient need help from a person or device, or need extra time to solve complex problems such as managing a checking account or confronting interpersonal problems? No. PROBLEM SOLVING - STEP 2: Does the patient require extra time to make decisions or solve problems, OR does s/he have slight dif ficulty reading, initiating, or self-correcting in unfamiliar situations? Yes, patient needs extra ti me. PROBLEM SOLVING - SCORE: 6-SINGH MEMORY: MEMORY - STEP 1: Does the patient need help from a person or device, or need extra time to remember frequently encount ered people, daily routines, and executing requests? No. MEMORY - STEP 2: Does the patient have slight difficulty recognizing frequently encountered people, daily routines, or executing requests without the need for repetition or using self-initiated or environmental cues to remember? Yes. MEMORY - SCORE: 6-SINGH SIGNATURE PANEL: The following modified sections: Eating - Score, Grooming - Score, Dressing - Upper Body - Score, Ben ssing - Lower Body - Score, Toileting - Score, Bladder Management - Score, Bowel Management - Score, Transfers: Bed, Chair, Wheelchair - Score, Transfers: Toilet - Score, Transfers: Shower - Score, Aquino sfers: Tub - Score, Locomotion: Walk - Score, Locomotion: Wheelchair - Score, Comprehension - Score, Expression - Score, Social Interaction - Score, Problem Solving - Score, Memory - Score were [electro nically] signed by Margi Collier CNA on FriFeb 04 2019 00:55:06 GMT-0600 (Central Standard Time)
--- NOTE | 2019-02-04 00:59 | PN ---
Date of Progress Note: 02/03/2019 Subjective: The patient was seen this morning for followup. He was feeling fine. His blood sugar t his morning around 7 a.m. was 212. Last night, he had a peanut butter sandwich and a glass of chocol ate milk; and overall, he is feeling much better. Fingerstick blood sugar readings from yesterday ar e reviewed. Objective: Vital Signs: Reviewed. HEENT: Examination unremarkable. Lungs: Clear to auscultation. Heart: Sounds normal. Abdomen: Soft. Bowel sounds normal. No guarding, rigidity, tenderness, or distention. Extremities: No leg edema. Impression: 1.Diabetes mellitus, type 2, uncontrolled. 2.Stroke. 3.Hypertension. 4.Coronary artery disease. Plan: We will continue current insulin Lantus. Instead of 55 units daily, we will increase dose to 60 units daily. Continue sliding scale at breakfast, lunch, and dinner time; and the patient will co ntinue to eat the same snack at bedtime as he had last night; and I have instructed him and nursing s taff to do so. Physical therapy will be continued per Dr. Brewster. I will see him tomorrow for [facility]. AUNG/MODL Voice ID: [id number] Report ID: [id number]
[2019-02-04] MEDS: METOPROLOL SUCCINATE 50 MG PO SCH ×2 (05:25→17:14)
[2019-02-04 06:25] LABS: Absolute Lymphocytes (CBC) 1.5 K/uL (0.7-4.9); Absolute Monocytes 1.2 K/uL (0.1-1.3); Absolute Neutrophil 5.2 K/uL (1.8-8.0); Basophils % 0.7 % (0-1.3); Eosinophils % 4.9 % (0-4.4); Hematocrit 33.8 % (39.6-49.0); Lymphocytes % 17.5 % (15.3-44.8); MPV 11.6 fL (7.6-11.3); Monocytes % 14.6 % (3.3-12.3); RBC Red Blood Cell Count 3.76 M/uL (4.33-5.43)
[2019-02-04] MEDS: SYNTHROID 88 MCG PO SCH (06:26)
[2019-02-04 06:46] LABS: Albumin 2.8 g/dL (3.4-5.0); Prealbumin 22.9 mg/dL (20-40)
[2019-02-04] MEDS ORDERED: BUMETANIDE 2MG PO SCH (08:00)
[2019-02-04] MEDS: FOLIC ACID 1 MG TABLET PO SCH (08:15)
[2019-02-04] MEDS: MULTIVITAMIN TAB PO SCH (08:15)
[2019-02-04] MEDS: CLOPIDOGREL 75 MG TABLET PO SCH (08:15)
[2019-02-04] MEDS: BUMETANIDE 2 MG PO SCH (08:16)
[2019-02-04] MEDS: ISOSORBIDE MONONITRATE 60 MG PO SCH (08:16)
[2019-02-04] MEDS: ASPIRIN 81 MG PO SCH (08:17)
[2019-02-04] MEDS: INSULIN GLARGINE 100 UNITS/ML SQ SCH (09:01)
[2019-02-04] MEDS: INSULIN -REGULAR HUMAN 50 UNIT/0.5 ML ML SQ SCH ×4 (09:01→21:00)
--- NOTE | 2019-02-04 14:27 | FAST ---
ENCOUNTER DATE AND TIME: 02/04/2019 08:00 (VIOLIN MAKER HAND) NAME ALISSON HERNANDEZ DATE OF : 1930 DATE OF ADMISSION: 01/26/2019 13:45 (VIOLIN MAKER HAND) PHONE: AGE: 88 SSN# [id number] GENDER: Male ENCOUNTER PHYSICIAN: Dr. Sabino Brewster M.D. ADMISSION DIAGNOSIS: - Stroke 01 - Right Body (Left Brain) (01.2) Acute left inferior cerebellar infarct. EATING: Activity did not occur on this shift EATING - SCORE: 0-UNK GROOMING: Activity did not occur on this shift GROOMING - SCORE: 0-UNK BATHING: Activity did not occur on this shift BATHING - SCORE: 0-UNK DRESSING - UPPER BODY: Activity did not occur on this shift Patient is not dressing in public clothing ARTICLES SCORE Total number of steps: 0 DRESSING - UPPER BODY - SCORE: 0-UNK DRESSING - LOWER BODY: Activity did not occur on this shift Patient is not dressing in public clothing ARTICLES SCORE Total number of steps: 0 DRESSING - LOWER BODY - SCORE: 0-UNK TOILETING: Activity did not occur on this shift TOILETING - SCORE: 0-UNK BLADDER MANAGEMENT: Activity did not occur on this shift BLADDER MANAGEMENT - SCORE: 7-IND BOWEL MANAGEMENT: Activity did not occur on this shift BOWEL MANAGEMENT - SCORE: 7-IND TRANSFERS: BED, CHAIR, WHEELCHAIR: TRANSFERS: BED, CHAIR, WHEELCHAIR - STEP 1: Does the patient require assistance of a person or device, or need extra time with bed, chair, or whe elchair transfers? Yes. TRANSFERS: BED, CHAIR, WHEELCHAIR - STEP 2: Does the patient require the assistance of a helper? Yes. TRANSFERS: BED, CHAIR, WHEELCHAIR - STEP 3: How much assistance does the patient require from the helper? Steadying/guiding assistance TRANSFERS: BED, CHAIR, WHEELCHAIR - SCORE: 4-MIN TRANSFERS: TOILET: TRANSFERS: TOILET - STEP 1: Does the patient require the assistance of a person or device, or need extra time with toilet transfe rs? Yes. TRANSFERS: TOILET - STEP 2: Does the patient require the assistance of a helper? No. Patient only requires an assistive device [place] as a grab bar or special seat, OR s/he takes more than reasonable time to perform toilet transfers , OR there is a safety concern when s/he performs toilet transfers. TRANSFERS: TOILET - SCORE: 6-SINGH TRANSFERS: SHOWER: Activity did not occur on this shift TRANSFERS: SHOWER - SCORE: 0-UNK TRANSFERS: TUB: Activity did not occur on this shift TRANSFERS: TUB - SCORE: 0-UNK LOCOMOTION: WALK: LOCOMOTION: WALK - STEP 1: Does the patient need help from a person or device, or need extra time to walk 150 feet? Yes. LOCOMOTION: WALK - STEP 2: How much assistance does the patient require to walk a minimum of 150 feet? Only incidental help such as contact guarding or steadying LOCOMOTION: WALK - SCORE: 4-MIN LOCOMOTION: WHEELCHAIR: LOCOMOTION: WHEELCHAIR - STEP 1: Does the patient need help to go 150 feet in a wheelchair? Yes. LOCOMOTION: WHEELCHAIR - STEP 2: How much assistance does the patient need from the helper? Only supervision, cuing, or coaxing LOCOMOTION: WHEELCHAIR - SCORE: 5-SUP LOCOMOTION: STAIRS: Activity did not occur on this shift LOCOMOTION: STAIRS - SCORE: 0-UNK COMPREHENSION: COMPREHENSION - SCORE: 0-UNK EXPRESSION EXPRESSION - SCORE: 0-UNK SOCIAL INTERACTION: SOCIAL INTERACTION - SCORE: 0-UNK PROBLEM SOLVING: PROBLEM SOLVING - SCORE: 0-UNK MEMORY: MEMORY - SCORE: 0-UNK SIGNATURE PANEL: The following modified sections: Transfers: Bed, Chair, Wheelchair - Score, Transfers: Toilet - Score , Locomotion: Walk - Score, Locomotion: Wheelchair - Score, Locomotion: Stairs - Score were [electron shruti] signed by Su Roberts PTA on FriFeb 04 2019 14:26:19 GMT-0600 (Central Standard Time)
--- NOTE | 2019-02-04 15:22 | FAST ---
SHIFT START DATE/TIME: 02/04/2019 07:00 (MEDICAL OFFICE SECRETARY) SHIFT END DATE/TIME: 02/04/2019 19:00 (MEDICAL OFFICE SECRETARY) NAME ALISSON HERNANDEZ DATE OF : 1930 DATE OF ADMISSION: 01/26/2019 13:45 (MEDICAL OFFICE SECRETARY) PHONE: AGE: 88 N# [id number] GENDER: Male ENCOUNTER PHYSICIAN: Dr. Sabino Brewster M.D. ADMISSION DIAGNOSIS: - Stroke 01 - Right Body (Left Brain) (01.2) Acute left inferior cerebellar infarct. EATING: EATING - STEP 1: Does the patient require the assistance of a person or device, or need extra time when eating? Yes. EATING - STEP 2: Does the patient require the assistance of a helper? Yes. EATING - STEP 3: Does the patient perform half or more of the eating tasks? Yes. EATING - STEP 4: Does the patient need only supervision, cuing, coaxing OR help to apply an orthosis OR help to cut fo od, open containers, pour liquids, or butter bread? Yes. EATING - SCORE: 5-SUP GROOMING: Comb/brush hair Oral care Wash, rinse, and dry face Wash, rinse, and dry hands GROOMING - STEP 1: Does the patient require the assistance of a person or device, or need extra time when grooming? Yes. GROOMING - STEP 2: Does the patient require the assistance of a helper? Yes. GROOMING - STEP 3: How much assistance does the patient require from the helper? Only prior equipment preparation/set up from the helper GROOMING - SCORE: 5-SUP BATHING: Activity did not occur on this shift BATHING - SCORE: 0-UNK DRESSING - UPPER BODY: T-shirt/pullover shirt (four steps) ARTICLES SCORE Total number of steps: 4 DRESSING - UPPER BODY - STEP 1: Does the patient require help from a person or device, or need extra time when dressing above the [address]? Yes. DRESSING - UPPER BODY - STEP 2: Does the patient require the assistance of a helper? Yes. DRESSING - UPPER BODY - STEP 3: Does the helper touch the patient while dressing? Yes. DRESSING - UPPER BODY - STEP 4: How many of the total steps does the patient complete on his/her own? 2 DRESSING - UPPER BODY - SCORE: 3-MOD DRESSING - LOWER BODY: Sock - Left foot (one step) Sock - Right foot (one step) Tied or buckled shoe - Left foot (two steps) Tied or buckled shoe - Right foot (two steps) ARTICLES SCORE Total number of steps: 6 DRESSING - LOWER BODY - STEP 1: Does the patient require help from a person or device, or need extra time when dressing below the [address]? Yes. DRESSING - LOWER BODY - STEP 2: Does the patient require the assistance of a helper? Yes. DRESSING - LOWER BODY - STEP 3: Does the helper touch the patient while dressing? Yes. DRESSING - LOWER BODY - STEP 4: How many of the total steps does the patient complete on his/her own? 4 DRESSING - LOWER BODY - SCORE: 3-MOD TOILETING: TOILETING - STEP 1: Does the patient require the assistance of a person or device, or need extra time with toileting? Yes . TOILETING - STEP 2: Does the patient require the assistance of a helper? Yes. TOILETING - STEP 3: How much assistance does the patient require from the helper? Hands-on assistance from the helper TOILETING - STEP 4: Of the 3 tasks: 1) Adjusting clothing prior to use, 2) Cleansing of perineal area, 3) Adjusting clot gregor after use; How many tasks does the patient perform WITHOUT assistance of the helper? Three tasks with steadying assistance from the helper TOILETING - SCORE: 4-MIN BLADDER MANAGEMENT: BLADDER MANAGEMENT - STEP 1: Does the patient control the bladder completely and intentionally without equipment or devices or med ications, and is always continent? No. BLADDER MANAGEMENT - STEP 2: Does the patient require the assistance of a helper? Yes. BLADDER MANAGEMENT - STEP 3: How much assistance does the patient require from the helper? Only supervision, stand-by, cuing, or c oaxing BLADDER MANAGEMENT - SCORE: 5-SUP BLADDER MANAGEMENT - FREQUENCY OF ACCIDENTS: BLADDER MANAGEMENT(FA) - STEP 1: How many accidents has the patient had during the current shift? 0 BOWEL MANAGEMENT: BOWEL MANAGEMENT - STEP 1: Does the patient control bowels completely and intentionally without equipment devices or medications AND is always continent? No. BOWEL MANAGEMENT - STEP 2: Does the patient require the assistance of a helper? No, patient requires medication for control such as stool softeners, suppositories, laxatives, enemas, or OTC medications BOWEL MANAGEMENT - SCORE: 6-SINGH BOWEL MANAGEMENT - FREQUENCY OF ACCIDENTS: BOWEL MANAGEMENT(FA) - STEP 1: How many accidents has the patient had during the current shift? 0 TRANSFERS: BED, CHAIR, WHEELCHAIR: TRANSFERS: BED, CHAIR, WHEELCHAIR - STEP 1: Does the patient require assistance of a person or device, or need extra time with bed, chair, or whe elchair transfers? Yes. TRANSFERS: BED, CHAIR, WHEELCHAIR - STEP 2: Does the patient require the assistance of a helper? Yes. TRANSFERS: BED, CHAIR, WHEELCHAIR - STEP 3: How much assistance does the patient require from the helper? Steadying/guiding assistance TRANSFERS: BED, CHAIR, WHEELCHAIR - SCORE: 4-MIN TRANSFERS: TOILET: TRANSFERS: TOILET - STEP 1: Does the patient require the assistance of a person or device, or need extra time with toilet transfe rs? Yes. TRANSFERS: TOILET - STEP 2: Does the patient require the assistance of a helper? No. Patient only requires an assistive device [place] as a grab bar or special seat, OR s/he takes more than reasonable time to perform toilet transfers , OR there is a safety concern when s/he performs toilet transfers. TRANSFERS: TOILET - SCORE: 6-SINGH TRANSFERS: SHOWER: After patient transfers from bed to shower chair on wheels, the helper pushes the chair into the walk -in shower TRANSFERS: SHOWER - SCORE: 1-DEP TRANSFERS: TUB: Activity did not occur on this shift TRANSFERS: TUB - SCORE: 0-UNK LOCOMOTION: WALK: Activity did not occur on this shift LOCOMOTION: WALK - SCORE: 0-UNK LOCOMOTION: WHEELCHAIR: LOCOMOTION: WHEELCHAIR - STEP 1: Does the patient need help to go 150 feet in a wheelchair? Yes. LOCOMOTION: WHEELCHAIR - STEP 2: How much assistance does the patient need from the helper? Only supervision, cuing, or coaxing LOCOMOTION: WHEELCHAIR - SCORE: 5-SUP COMPREHENSION: COMPREHENSION: TYPE: Both COMPREHENSION - STEP 1: Does the patient require help from a person or device, or need extra time to understand complex and a bstract ideas (such as current events, finances, discharge planning, medical issues, relationships, e tc)? Yes. COMPREHENSION - STEP 2: Does the patient require help to understand questions or statements about basic needs or ideas (such as hunger, thirst, sleep, safety, daily schedule, room location, or discomfort) half or more of the t ld? No. COMPREHENSION - STEP 3: How often does the patient need help to understand directions and conversation about basic needs? Les s than 10% of the time COMPREHENSION - SCORE: 5-SUP EXPRESSION EXPRESSION: TYPE: Both EXPRESSION - STEP 1: Does the patient require help from a person or device, or need extra time expressing complex and abst ract ideas (such as current events, finances, discharge planning, medical issues, relationships, etc) ? Yes. EXPRESSION - STEP 2: Does the patient require help to express basic necessities or ideas (such as hunger, thirst, sleep, s afety, daily schedule, room location, or discomfort) half or more of the time? No. EXPRESSION - STEP 3: How often does the patient need help to express directions and conversation about basic needs? 10-24% of the time EXPRESSION - SCORE: 4-MIN SOCIAL INTERACTION: SOCIAL INTERACTION - STEP 1: Does the patient require a helper to interact with others in social and therapeutic situations? No. SOCIAL INTERACTION - STEP 2: Does the patient need extra time in social situations, OR does s/he interact with staff, other patien ts, and family members ONLY in structured environments, OR does s/he require medication for social in teraction? Yes, patient needs extra time SOCIAL INTERACTION - SCORE: 6-SINGH PROBLEM SOLVING: PROBLEM SOLVING - STEP 1: Does the patient need help from a person or device, or need extra time to solve complex problems such as managing a checking account or confronting interpersonal problems? Yes. PROBLEM SOLVING - STEP 2: Does the patient solve basic routine problems half or more of the time? Yes. PROBLEM SOLVING - STEP 3: How often does the patient need help to solve basic routine problems? 10%-24% of the time PROBLEM SOLVING - SCORE: 4-MIN MEMORY: MEMORY - STEP 1: Does the patient need help from a person or device, or need extra time to remember frequently encount ered people, daily routines, and executing requests? No. MEMORY - STEP 2: Does the patient have slight difficulty recognizing frequently encountered people, daily routines, or executing requests without the need for repetition or using self-initiated or environmental cues to remember? Yes. MEMORY - SCORE: 6-SINGH SIGNATURE PANEL: The following modified sections: Eating - Score, Grooming - Score, Bathing - Score, Dressing - Upper Body - Score, Dressing - Lower Body - Score, Toileting - Score, Bladder Management - Score, Bowel Man agement - Score, Transfers: Bed, Chair, Wheelchair - Score, Transfers: Toilet - Score, Transfers: Iris wer - Score, Transfers: Tub - Score, Locomotion: Walk - Score, Locomotion: Wheelchair - Score, Compre hension - Score, Problem Solving - Score, Memory - Score, Social Interaction - Score, Expression - Sc ore were [electronically] signed by Jennifer Adame [email or web address] on FriFeb 04 2019 15:21:58 GMT-0600 (Cent[place] Standard Time)
[2019-02-04] MEDS: BUMETANIDE PO SCH (17:13)
--- NOTE | 2019-02-04 18:14 | R.PN ---
ENCOUNTER DATE AND TIME: 02/04/2019 18:02 (INPATIENT AUDITOR) NAME ALISSON HERNANDEZ DATE OF : 1930 DATE OF ADMISSION: 01/26/2019 13:45 (INPATIENT AUDITOR) Acute left inferior cerebellar infarctCHIEF COMPLAINT: Left cerebellar stroke SUBJECTIVE: Pt denied any Shortness of Breath. Pt denied any depression. Wheelchair mobility done with standby assistance for 500'. Ambulated 354' with minimum to moderate assistance using a rolling walker. Blood sugars 173 to [address] Puga. Prealbumin 22.9. VITAL SIGNS Temperature: 97.9 F SBP/DBP: 133/60 Pulse: 65 Resp: 16 MEDICATION ALLERGIES: No Known Drug Allergies (NKDA) ENVIRONMENTAL ALLERGIES: None Known - Substance Allergies None Known - Other Allergies None Known NURSING: - Shower allowing shower - Lab Results blood Sugar Check ACHS - Bladder care per protocol - Skin care per protocol PRECAUTIONS: - Weight Bearing Precaution WBAT right LE ACTIVITIES OOB only with supervision THERAPIES: - Occupational Therapy Evaluate and Treat. Visual Perceptual Training. Cognitive Retraining. - Speech Therapy Cognitive Training. Memory Strategies. Speech Intelligibility Training. Expressive Language Skills. R eceptive Language Skills. - Physical Therapy Evaluate and Treat. PHYSICAL EXAM - Gen Alert and awake Lying in bed No apparent distress Oriented to: person, time, and place - Skin No beakdown No abnormalities - Eyes No abnormalities - Neck No abnormalities - CVS RRR - Chest Clear - Abd + bowel sounds - GI Soft Deferred - No abnormalities - Ext No significant edema - MSK 4+/5 weakness in left upper and lower extremities. - Neuro 4/5 strength left upper and lower extremities. - Psych No abnormalities ASSESSMENT: Pt. is a 88 yo Right-handed white male.On 01/21/2019 Pt. presented to [facility] with sudden onset of right-side weakness.On 01/21/2019 he was admitted to [facility] with diagnosis Acute left inferior cerebellar infarct.His impairment category is Stroke 01 - Right Body (Left Brain) (01.2).Pre-morbidly, Pt. was independent/mod-I in Self-Care, Locomotion, Sph incter Control, Transfers Control, Communication, and Social Cognition; and he had good Sphincter Con trol.Currently, he has deficits of Balance, Self-Care, Locomotion, Endurance, Safety Awareness, and T ransfers Control.Pt. is now referred to [facility] for acute in-patient rehabi litation in order to maximize patient's functional independence in activities of daily living, streng th, ROM, and mobility.- Rehab Goal Patient has realistic goal of being discharged at assistance level 6-Harlan to reside at Home with Fam es/Relatives. MDM/PLAN: - Physical Therapy Gait dysfunction - to improve, our physical therapists will perform initial evaluation of pt's statu s upon admission and devise an individualized program for Gait Training, and Wheel Chair mobility Inability to transfer - to improve, our physical therapists will perform initial evaluation of pt's status upon admission and devise an individualized program for Bed mobility Need for home safety evaluation - to improve, our physical therapists will perform initial evaluatio n of pt's status upon admission and devise an individualized program for Home Evaluation Need in caregiver upon discharge - to improve, our physical therapists will perform initial evaluati on of pt's status upon admission and devise an individualized program for Caregiver Training New precaution - to improve, our physical therapists will perform initial evaluation of pt's status upon admission and devise an individualized program for Patient precaution education Edema - to improve, our physical therapists will perform initial evaluation of pt's status upon admi ssion and devise an individualized program for Elevation Training, and Lymphedema Therapy Poor balance - to improve, our physical therapists will perform initial evaluation of pt's status up on admission and devise an individualized program for Balance Training Poor endurance - to improve, our physical therapists will perform initial evaluation of pt's status upon admission and devise an individualized program for Endurance Training Weakness - to improve, our physical therapists will perform initial evaluation of pt's status upon a dmission and devise an individualized program for Aquatic Therapy, Neuromuscular Reeducation, and Str engthening Achieving independence - to improve, our physical therapists will perform initial evaluation of pt's status upon admission and devise an individualized program for Community Reintegration Activities - Occupational Therapy ADL deficits - to improve, our occupation therapists will perform initial evaluation of pt's status upon admission and devise an individualized program for Bathing, Bed mobility, Community Reintegratio n, Cooking, Dressing, Eating, Fine Motor Skills, Grooming, Homemaking, Kitchen Mobility, Laundry, Pat ient Education, Safety Awareness, Splinting - Positioning, Transfers(Toilet, Tub, Shower), and Wheel Chair Management Need for patient care secretary - to improve, our occupation therapists will perform initial evaluation of pt's status upon admission and devise an individualized program for Caregiver Training Weakness - to improve, our occupation therapists will perform initial evaluation of pt's status upon admission and devise an individualized program for Aquatic Therapy, Balance, Endurance, UE ROM, and UE strengthening - Diet Type Continue Regular - Diet - Liquid Texture Continue Regular - Tube Feed Continue N/A - Lab Results blood Sugar Check ACHS - Bladder care per protocol - Weight Bearing Precaution WBAT right LE - Skin care per protocol - Diet - Solid Texture Continue Regular - Shower allowing shower for Dementia, TBI, Stroke, or others FUNCTIONAL STATUS: UPDATED AT WEEKLY TEAM CONFERENCE - Bladder Same accident frequency: 7-Ind - No accidents in the past 7 days - Bowel Same accident frequency: 7-Ind - No accidents in the past 7 days - Walking Same score based on distance walked: 0(N/A) - Wheelchair Same score based on distance traveled: 0(N/A) FUNCTIONAL STATUS: - Self-Care A. Eating sup B. Grooming sup C. Bathing Erinn D. Dressing - Upper modA E. Dressing - Lower modA F. Toileting Erinn - Sphincter Control G: Bladder control Ind H: Bowel control Ind - Transfers Control I. Bed/Chair/Wheelchair Erinn J. Toilet Erinn K. Tub/Shower ADNO - Locomotion L. Walk/Wheelchair (C) modA L. Walk/Wheelchair (W) modA M. Stairs ADNO - Communication N. Comprehension (B) Harlan O. Expression (B) Harlan - Social Cognition P. Social Interaction Harlan Q. Problem Solving Harlan R. Memory Harlan - Endurance Fair - Balance Fair - Safety Awareness Fair CURRENT FUNC. DEFICITS: Balance, Self-Care, Locomotion, Endurance, Safety Awareness, and Transfers Control SIGNATURE PANEL: ([facility])
[2019-02-04] MEDS: ENOXAPARIN 30 MG/0.3 ML SQ SCH (21:34)
[2019-02-04] MEDS: TAMSULOSIN 0.4 MG PO SCH (21:34)
[2019-02-04] MEDS: SIMVASTATIN 80 MG PO SCH (21:34)
--- NOTE | 2019-02-05 02:08 | FAST ---
SHIFT START DATE/TIME: 02/04/2019 19:00 (INCOMING INSPECTOR) SHIFT END DATE/TIME: 02/05/2019 07:00 (INCOMING INSPECTOR) NAME ALISSON HERNANDEZ DATE OF : 1930 DATE OF ADMISSION: 01/26/2019 13:45 (INCOMING INSPECTOR) PHONE: AGE: 88 N# [id number] GENDER: Male ENCOUNTER PHYSICIAN: Dr. Sabino Brewster M.D. ADMISSION DIAGNOSIS: - Stroke 01 - Right Body (Left Brain) (01.2) Acute left inferior cerebellar infarct. EATING: Activity did not occur on this shift EATING - SCORE: 0-UNK GROOMING: Wash, rinse, and dry hands GROOMING - STEP 1: Does the patient require the assistance of a person or device, or need extra time when grooming? Yes. GROOMING - STEP 2: Does the patient require the assistance of a helper? Yes. GROOMING - STEP 3: How much assistance does the patient require from the helper? Cuing, coaxing, instructions, or encour agement for completion of grooming GROOMING - SCORE: 5-SUP BATHING: Activity did not occur on this shift BATHING - SCORE: 0-UNK DRESSING - UPPER BODY: Patient is not dressing in public clothing ARTICLES SCORE Total number of steps: 0 DRESSING - UPPER BODY - SCORE: 0-UNK DRESSING - LOWER BODY: Patient is not dressing in public clothing ARTICLES SCORE Total number of steps: 0 DRESSING - LOWER BODY - SCORE: 0-UNK TOILETING: TOILETING - STEP 1: Does the patient require the assistance of a person or device, or need extra time with toileting? Yes . TOILETING - STEP 2: Does the patient require the assistance of a helper? Yes. TOILETING - STEP 3: How much assistance does the patient require from the helper? Hands-on assistance from the helper TOILETING - STEP 4: Of the 3 tasks: 1) Adjusting clothing prior to use, 2) Cleansing of perineal area, 3) Adjusting clot gregor after use; How many tasks does the patient perform WITHOUT assistance of the helper? One task TOILETING - SCORE: 2-MAX BLADDER MANAGEMENT: BLADDER MANAGEMENT - STEP 1: Does the patient control the bladder completely and intentionally without equipment or devices or med ications, and is always continent? No. BLADDER MANAGEMENT - STEP 2: Does the patient require the assistance of a helper? Yes. BLADDER MANAGEMENT - STEP 3: How much assistance does the patient require from the helper? Only supervision, stand-by, cuing, or c oaxing BLADDER MANAGEMENT - SCORE: 5-SUP BOWEL MANAGEMENT: BOWEL MANAGEMENT - STEP 1: Does the patient control bowels completely and intentionally without equipment devices or medications AND is always continent? No. BOWEL MANAGEMENT - STEP 2: Does the patient require the assistance of a helper? No, patient requires medication for control such as stool softeners, suppositories, laxatives, enemas, or OTC medications BOWEL MANAGEMENT - SCORE: 6-SINGH TRANSFERS: BED, CHAIR, WHEELCHAIR: TRANSFERS: BED, CHAIR, WHEELCHAIR - STEP 1: Does the patient require assistance of a person or device, or need extra time with bed, chair, or whe elchair transfers? Yes. TRANSFERS: BED, CHAIR, WHEELCHAIR - STEP 2: Does the patient require the assistance of a helper? Yes. TRANSFERS: BED, CHAIR, WHEELCHAIR - STEP 3: How much assistance does the patient require from the helper? Lifting of the legs TRANSFERS: BED, CHAIR, WHEELCHAIR - STEP 4: How many legs does the patient require the helper to lift? both legs TRANSFERS: BED, CHAIR, WHEELCHAIR - SCORE: 3-MOD TRANSFERS: TOILET: TRANSFERS: TOILET - STEP 1: Does the patient require the assistance of a person or device, or need extra time with toilet transfe rs? Yes. TRANSFERS: TOILET - STEP 2: Does the patient require the assistance of a helper? Yes. TRANSFERS: TOILET - STEP 3: How much assistance does the patient require from the helper? Patient performs half or more of the tr ansferring tasks TRANSFERS: TOILET - STEP 4: Does the patient need only incidental help such as contact guard or steadying during toilet transfer? No. Patient needs more than incidental help TRANSFERS: TOILET - SCORE: 3-MOD TRANSFERS: SHOWER: Activity did not occur on this shift TRANSFERS: SHOWER - SCORE: 0-UNK TRANSFERS: TUB: Activity did not occur on this shift TRANSFERS: TUB - SCORE: 0-UNK LOCOMOTION: WALK: Activity did not occur on this shift LOCOMOTION: WALK - SCORE: 0-UNK LOCOMOTION: WHEELCHAIR: Activity did not occur on this shift LOCOMOTION: WHEELCHAIR - SCORE: 0-UNK COMPREHENSION: COMPREHENSION: TYPE: Both COMPREHENSION - STEP 1: Does the patient require help from a person or device, or need extra time to understand complex and a bstract ideas (such as current events, finances, discharge planning, medical issues, relationships, e tc)? No. COMPREHENSION - STEP 2: Does the patient need extra time, require an assistive device (such as glasses for visual comprehensi on or a hearing aid for auditory comprehension) or does s/he have mild difficulty understanding compl ex and abstract information? Yes. COMPREHENSION - SCORE: 6-SINGH EXPRESSION EXPRESSION: TYPE: Both EXPRESSION - STEP 1: Does the patient require help from a person or device, or need extra time expressing complex and abst ract ideas (such as current events, finances, discharge planning, medical issues, relationships, etc) ? No. EXPRESSION - STEP 2: Does the patient need extra time, require an assistive device (such as augmentive communication syste m or a communication board), OR does s/he have mild difficulty expressing complex and abstract ideas (including mild dysarthria or mild word-find problems)? Yes. EXPRESSION - SCORE: 6-SINGH SOCIAL INTERACTION: SOCIAL INTERACTION - STEP 1: Does the patient require a helper to interact with others in social and therapeutic situations? No. SOCIAL INTERACTION - STEP 2: Does the patient need extra time in social situations, OR does s/he interact with staff, other patien ts, and family members ONLY in structured environments, OR does s/he require medication for social in teraction? Yes, patient requires medication for social interaction SOCIAL INTERACTION - SCORE: 6-SINGH PROBLEM SOLVING: PROBLEM SOLVING - STEP 1: Does the patient need help from a person or device, or need extra time to solve complex problems such as managing a checking account or confronting interpersonal problems? No. PROBLEM SOLVING - STEP 2: Does the patient require extra time to make decisions or solve problems, OR does s/he have slight dif ficulty reading, initiating, or self-correcting in unfamiliar situations? Yes, patient needs extra ti me. PROBLEM SOLVING - SCORE: 6-SINGH MEMORY: MEMORY - STEP 1: Does the patient need help from a person or device, or need extra time to remember frequently encount ered people, daily routines, and executing requests? No. MEMORY - STEP 2: Does the patient have slight difficulty recognizing frequently encountered people, daily routines, or executing requests without the need for repetition or using self-initiated or environmental cues to remember? Yes. MEMORY - SCORE: 6-SINGH SIGNATURE PANEL: The following modified sections: Eating - Score, Grooming - Score, Dressing - Upper Body - Score, Ben ssing - Lower Body - Score, Toileting - Score, Bladder Management - Score, Bowel Management - Score, Transfers: Bed, Chair, Wheelchair - Score, Transfers: Toilet - Score, Transfers: Shower - Score, Aquino sfers: Tub - Score, Locomotion: Walk - Score, Locomotion: Wheelchair - Score, Comprehension - Score, Expression - Score, Social Interaction - Score, Problem Solving - Score, Memory - Score were [electro nically] signed by Margi Collier CNA on FriFeb 05 2019 02:07:23 GMT-0600 (Central Standard Time)
[2019-02-05] MEDS: METOPROLOL SUCCINATE 50 MG PO SCH ×2 (05:18→17:28)
[2019-02-05] MEDS: SYNTHROID 88 MCG PO SCH (06:39)
--- NOTE | 2019-02-05 07:53 | FAST ---
SHIFT START DATE/TIME: 02/05/2019 07:00 (HERB GROWER) SHIFT END DATE/TIME: 02/05/2019 19:00 (HERB GROWER) NAME ALISSON HERNANDEZ DATE OF : 1930 DATE OF ADMISSION: 01/26/2019 13:45 (HERB GROWER) PHONE: AGE: 88 SSN# [id number] GENDER: Male ENCOUNTER PHYSICIAN: Dr. Sabino Brewster M.D. ADMISSION DIAGNOSIS: - Stroke 01 - Right Body (Left Brain) (01.2) Acute left inferior cerebellar infarct. EATING: Activity did not occur on this shift EATING - SCORE: 0-UNK GROOMING: GROOMING - STEP 1: Does the patient require the assistance of a person or device, or need extra time when grooming? No. GROOMING - SCORE: 7-IND BATHING: Abdomen Buttocks Chest Left arm Left lower leg and foot Left upper leg Perineal area Right arm Right lower leg and foot Right upper leg BATHING - STEP 1: Does the patient require the assistance of a person or device, or need extra time when bathing? Yes. BATHING - STEP 2: Does the patient require the assistance of a helper? Yes. BATHING - STEP 3: How much assistance does the patient require from the helper? Only prior preparation such as putting bathing equipment within reach, turning on water, checking water temperature BATHING - SCORE: 5-SUP BATHING - COMMENTS: Required SBA for safety with standing to wash buttocks DRESSING - UPPER BODY: T-shirt/pullover shirt (four steps) ARTICLES SCORE Total number of steps: 4 DRESSING - UPPER BODY - STEP 1: Does the patient require help from a person or device, or need extra time when dressing above the [address]? No. DRESSING - UPPER BODY - SCORE: 7-IND DRESSING - LOWER BODY: Underwear (three steps) Zippered pants (four steps) ARTICLES SCORE Total number of steps: 7 DRESSING - LOWER BODY - STEP 1: Does the patient require help from a person or device, or need extra time when dressing below the [address]? Yes. DRESSING - LOWER BODY - STEP 2: Does the patient require the assistance of a helper? Yes. DRESSING - LOWER BODY - STEP 3: Does the helper touch the patient while dressing? Yes. DRESSING - LOWER BODY - STEP 4: How many of the total steps does the patient complete on his/her own? 6 DRESSING - LOWER BODY - SCORE: 4-MIN DRESSING - LOWER BODY - COMMENTS: Required steadying assist for standing to pull up pants TOILETING: Activity did not occur on this shift TOILETING - SCORE: 0-UNK BLADDER MANAGEMENT: Activity did not occur on this shift BLADDER MANAGEMENT - SCORE: 7-IND BOWEL MANAGEMENT: Activity did not occur on this shift BOWEL MANAGEMENT - SCORE: 7-IND TRANSFERS: BED, CHAIR, WHEELCHAIR: Activity did not occur on this shift TRANSFERS: BED, CHAIR, WHEELCHAIR - SCORE: 0-UNK TRANSFERS: TOILET: Activity did not occur on this shift TRANSFERS: TOILET - SCORE: 0-UNK TRANSFERS: SHOWER: TRANSFERS: SHOWER - STEP 1: Does the patient require the assistance of a person or device, or need extra time with shower transfe rs? Yes. TRANSFERS: SHOWER - STEP 2: Does the patient require the assistance of a helper? Yes. TRANSFERS: SHOWER - STEP 3: How much assistance does the patient require from the helper? Only incidental help such as contact gu arding or steadying during shower transfers, or help to lift one leg into the shower TRANSFERS: SHOWER - SCORE: 4-MIN TRANSFERS: TUB: Activity did not occur on this shift TRANSFERS: TUB - SCORE: 0-UNK LOCOMOTION: WALK: Activity did not occur on this shift LOCOMOTION: WALK - SCORE: 0-UNK LOCOMOTION: WHEELCHAIR: LOCOMOTION: WHEELCHAIR - STEP 1: Does the patient need help to go 150 feet in a wheelchair? No. LOCOMOTION: WHEELCHAIR - SCORE: 6-SINGH COMPREHENSION: COMPREHENSION: TYPE: Both COMPREHENSION - STEP 1: Does the patient require help from a person or device, or need extra time to understand complex and a bstract ideas (such as current events, finances, discharge planning, medical issues, relationships, e tc)? No. COMPREHENSION - STEP 2: Does the patient need extra time, require an assistive device (such as glasses for visual comprehensi on or a hearing aid for auditory comprehension) or does s/he have mild difficulty understanding compl ex and abstract information? Yes. COMPREHENSION - SCORE: 6-SINGH EXPRESSION EXPRESSION: TYPE: Both EXPRESSION - STEP 1: Does the patient require help from a person or device, or need extra time expressing complex and abst ract ideas (such as current events, finances, discharge planning, medical issues, relationships, etc) ? No. EXPRESSION - STEP 2: Does the patient need extra time, require an assistive device (such as augmentive communication syste m or a communication board), OR does s/he have mild difficulty expressing complex and abstract ideas (including mild dysarthria or mild word-find problems)? No. EXPRESSION - SCORE: 7-IND SOCIAL INTERACTION: SOCIAL INTERACTION - STEP 1: Does the patient require a helper to interact with others in social and therapeutic situations? No. SOCIAL INTERACTION - STEP 2: Does the patient need extra time in social situations, OR does s/he interact with staff, other patien ts, and family members ONLY in structured environments, OR does s/he require medication for social in teraction? No. SOCIAL INTERACTION - SCORE: 7-IND PROBLEM SOLVING: PROBLEM SOLVING - STEP 1: Does the patient need help from a person or device, or need extra time to solve complex problems such as managing a checking account or confronting interpersonal problems? No. PROBLEM SOLVING - STEP 2: Does the patient require extra time to make decisions or solve problems, OR does s/he have slight dif ficulty reading, initiating, or self-correcting in unfamiliar situations? No. PROBLEM SOLVING - SCORE: 7-IND MEMORY: MEMORY - STEP 1: Does the patient need help from a person or device, or need extra time to remember frequently encount ered people, daily routines, and executing requests? No. MEMORY - STEP 2: Does the patient have slight difficulty recognizing frequently encountered people, daily routines, or executing requests without the need for repetition or using self-initiated or environmental cues to remember? No. MEMORY - SCORE: 7-IND SIGNATURE PANEL: The following modified sections: Eating - Score, Grooming - Score, Bathing - Score, Bathing - Comment s:, Dressing - Upper Body - Score, Dressing - Lower Body - Score, Dressing - Lower Body - Comments:, Toileting - Score, Bladder Management - Score, Bowel Management - Score, Transfers: Bed, Chair, Wheel chair - Score, Transfers: Toilet - Score, Transfers: Shower - Score, Transfers: Tub - Score, Locomoti on: Walk - Score, Locomotion: Wheelchair - Score, Comprehension - Score, Expression - Score, Social I nteraction - Score, Problem Solving - Score, Memory - Score were [electronically] signed by COREY Palomares on FriFeb 05 2019 07:52:36 GMT-0600 (Central Standard Time)
--- NOTE | 2019-02-05 08:46 | PN ---
Date of Progress Note: 02/04/2019 Subjective: The patient was seen for followup in the morning. He is lying in bed, not in any distre ss. He did eat his snack as per instruction last night, and this morning he did not have any hypogly cemia problem. Objective: Vital Signs: Reviewed. HEENT: Unremarkable. Lungs: Clear to auscultation. Heart: Sounds normal. Abdomen: Soft. Bowel sounds normal. No guarding, rigidity, tenderness, distention. Extremities: No leg edema. Laboratory Data: White count 8.4, hemoglobin 11.4, platelets 189, sodium 142, potassium 4, chloride 106, bicarb 30, BUN 62, creatinine 2.13, glucose 168. Impression: 1.Diabetes mellitus, type 2, uncontrolled. 2.Hypertension. 3.Coronary artery disease. 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 5.Stroke. Plan: We will continue current medications. Diabetes is uncontrolled, but at least we have managed to control early-morning hypoglycemia problem by giving consistent type of snack at bedtime, and I quinones ve advised the patient to continue to eat the snack every night. We will go ahead and continue curre nt insulin and sliding- scale per order. Continue physical therapy per instruction from Dr. Brewster. I will see him tomorr ow for followup. AUNG/MODL Voice ID: [id number] Report ID: [id number]
[2019-02-05] MEDS: INSULIN -REGULAR HUMAN 50 UNIT/0.5 ML ML SQ SCH ×4 (09:04→20:21)
[2019-02-05] MEDS: INSULIN GLARGINE 100 UNITS/ML SQ SCH (09:04)
[2019-02-05] MEDS: BUMETANIDE 2 MG PO SCH (09:07)
[2019-02-05] MEDS: ASPIRIN 81 MG PO SCH (09:07)
[2019-02-05] MEDS: CLOPIDOGREL 75 MG TABLET PO SCH (09:08)
[2019-02-05] MEDS: MULTIVITAMIN TAB PO SCH (09:08)
[2019-02-05] MEDS: FOLIC ACID 1 MG TABLET PO SCH (09:08)
[2019-02-05] MEDS: ISOSORBIDE MONONITRATE 60 MG PO SCH (09:08)
--- NOTE | 2019-02-05 10:05 | P.RH.PN ---
Estimated Length of Stay: 16 Expected Discharge Date: 02/10/19 Discharge Disposition Plan: Home Family Support: Yes [facility] Goal: Mobility, Transfers, Self Care Vital Signs: Last Vital Signs Temp 98.2 F 02/05/19 09:34 Pulse 67 02/05/19 09:34 Resp 16 02/05/19 09:34 BP 147/65 H 02/05/19 09:34 Pulse Ox 95 02/05/19 09:34 Laboratory: Laboratory Last Values WBC 8.4 K/uL (4.3-10.9) 02/04/19 06:03 RBC 3.76 M/uL (4.33-5.43) L 02/04/19 06:03 Hgb 11.4 g/dL (13.6-17.9) L 02/04/19 06:03 Hct 33.8 % (39.6-49.0) L 02/04/19 06:03 MCV 89.9 fL (80-100) 02/04/19 06:03 MCH 30.3 pg (27.0-35.0) 02/04/19 06:03 MCHC 33.6 g/dL (32.0-36.0) 02/04/19 06:03 RDW 13.1 % (12.1-15.2) 02/04/19 06:03 Plt Count 189 K/uL (152-406) D 02/04/19 06:03 MPV 11.6 fL (7.6-11.3) H 02/04/19 06:03 Neutrophils % 62.3 % (41.7-73.7) 02/04/19 06:03 Lymphocytes % 17.5 % (15.3-44.8) 02/04/19 06:03 Monocytes % 14.6 % (3.3-12.3) H 02/04/19 06:03 Eosinophils % 4.9 % (0-4.4) H 02/04/19 06:03 Basophils % 0.7 % (0-1.3) 02/04/19 06:03 Absolute Neutrophils 5.2 K/uL (1.8-8.0) 02/04/19 06:03 Absolute Lymphocytes 1.5 K/uL (0.7-4.9) 02/04/19 06:03 Absolute Monocytes 1.2 K/uL (0.1-1.3) 02/04/19 06:03 Absolute Eosinophils 0.4 K/uL (0-0.5) 02/04/19 06:03 Absolute Basophils 0.1 K/uL (0-0.5) 02/04/19 06:03 Sodium 142 mmol/L (136-145) 02/04/19 06:03 Potassium 4.0 mmol/L (3.5-5.1) 02/04/19 06:03 Chloride 106 mmol/L (98-107) 02/04/19 06:03 Carbon Dioxide 30 mmol/L (21-32) 02/04/19 06:03 BUN 62 mg/dL (7-18) H 02/04/19 06:03 Creatinine 2.13 mg/dL (0.55-1.3) H 02/04/19 06:03 Estimated GFR 30 mL/min (=/>90) L 02/04/19 06:03 Glucose 168 mg/dL (74-106) H 02/04/19 06:03 POC Glucose 213 mg/dl (65-120) H 02/05/19 06:14 Calcium 8.8 mg/dL (8.5-10.1) 02/04/19 06:03 Phosphorus 2.9 mg/dL (2.5-4.9) 02/01/19 05:50 Magnesium 2.3 mg/dL (1.8-2.4) 01/27/19 06:07 Albumin 2.8 g/dL (3.4-5.0) L 02/04/19 06:03 Prealbumin 22.9 mg/dL (20-40) 02/04/19 06:03 Urine Color Yellow 01/26/19 14:40 Urine Appearance Clear 01/26/19 14:40 Urine pH 5.5 (5.0-7.0) 01/26/19 14:40 Ur Specific [place] 1.015 (1.005-1.030) 01/26/19 14:40 Urine Ketones Negative (NEG) 01/26/19 14:40 Urine Blood Negative (NEG) 01/26/19 14:40 Urine Nitrite Negative (NEG) 01/26/19 14:40 Urine Bilirubin Negative (NEG) 01/26/19 14:40 Urine Urobilinogen 0.2 mg/dL (0.2-1.0) 01/26/19 14:40 Ur Leukocyte Esterase Negative (NEG) 01/26/19 14:40 Urine RBC None seen /HPF (NONE SEEN) 01/26/19 14:40 Urine WBC <5 /HPF (<5) 01/26/19 14:40 Ur Squamous Epith Cells <5 /HPF (NONE SEEN) 01/26/19 14:40 Urine Bacteria None seen /HPF (NONE SEEN) 01/26/19 14:40 Urine Culture Reflexed Not needed 01/26/19 14:40 Urine Glucose 1+ (NEG) H 01/26/19 14:40 Urine Total Protein Trace (NEG) 01/26/19 14:40 Weight: 230 lb 1.6 oz Wound Present: No Closed Surgical Incision Present: No Negative Pressure Wound Therapy Present: No Physician Update: He is making good overall with physical and occupational therpy. However, he is having difficulty controling stools. May evaluate stool to rule out possible GI infection. Medical Issues: Lovenox 30mg SQ Daily Medication Issues: Lantus 60 units SQ Daily with breakfast Functional Improvement: pt is demonstrating improvement and is eager to participate in therapy sessions. pt continues to be motivated and requires further PT services to enhance functional performance and safety. Functional Improvement Occupational Therapy: pt can benifit with further therapy to address pt's static standing balance for clothing mgmt and for bathing tasks. Cont to increase pt's overall weakness in UE's and the lower extremities by educating and training on base of support for static standing while participating in activities. Cont to educate and train pt on energy conservation techniques and safety. cont with the POC and the goals by the supervising OTR. Speech Therapy Update: Patient has made significant progress on short- and long- term goals since the day of his initial evaluation. Patient has been alert, oriented, and cooperative and motivated with all therapy tasks. Patient is currently at MIN A for auditory comprehension, MOD I for verbal expression, MOD I for social interaction, MIN A for problem solving, and MIN A for memory. Summary: Patient's care plan and retirement goals have been reviewed and revised as necessary. Please see the Rehabilitation Signature page for all necessary signatures.
--- NOTE | 2019-02-05 12:58 | P.PN ---
Subjective Date of Service: 02/05/19 Subjective: Improving Participate in Pt Cr stable still have edema will monitor daily WT Physical Examination - Vital Signs Temperature: 98.2 F Blood Pressure: 147/65 Pulse: 67 Respirations: 16 Pulse Ox (%): 95 - Physical Exam General: In no apparent distress, Oriented x3 HEENT: Atraumatic Neck: Supple, Without JVD or thyroid abnormality Respiratory: Clear to auscultation bilaterally Cardiovascular: Normal pulses, Regular rate/rhythm, Normal S1 S2, No rubs, No murmurs, Edema Gastrointestinal: Normal bowel sounds, Soft and benign Assessment And Plan - Current Problems (Diagnosis) (1) CKD (chronic kidney disease) Current Visit: Yes Status: Acute - Plan CKD Cr stable renal dose meds will cont Bumex HTN controlled edema Bumex increased recently daily Wt CVA Pt/OT
--- NOTE | 2019-02-05 13:10 | PN ---
Date of Progress Note: 02/05/2019 Subjective: The patient was seen this morning for followup. He was feeling fine. Denied any compla ints. No chest pain, shortness of breath. No diarrhea. No nausea, vomiting. Objective: Vital signs: Reviewed. HEENT: Examination unremarkable. Lungs: Clear to auscultation. Heart: Sounds normal. Abdomen: Soft, bowel sounds normal. No guarding, rigidity, tenderness, or distention. Extremities: No leg edema. Laboratory Data: His fingerstick blood sugar readings reviewed. Blood glucose this morning was 213. Impression: 1.Diabetes mellitus, type 2, uncontrolled. 2.Coronary artery disease. 3.Hypertension. 4.Hyperlipidemia. 5.Chronic kidney disease stage 4. 6.Stroke. Plan: We will continue current medications for diabetes management including his Lantus insulin and sliding scale insulin. Continue aspirin, Plavix, and physical therapy under guidance of Dr. Brewster and he is getting Lantus 60 units daily in the morning. We will continue that at this point. The p atient was advised to continue to eat his bedtime snack consistently. AUNG/MODL Voice ID: [id number] Report ID: [id number]
--- NOTE | 2019-02-05 14:41 | FAST ---
ENCOUNTER DATE AND TIME: 02/05/2019 08:00 (DIRECTOR EQUIPMENT) NAME ALISSON HERNANDEZ DATE OF : 1930 DATE OF ADMISSION: 01/26/2019 13:45 (DIRECTOR EQUIPMENT) PHONE: AGE: 88 N# [id number] GENDER: Male ENCOUNTER PHYSICIAN: Dr. Sabino Brewster M.D. ADMISSION DIAGNOSIS: - Stroke 01 - Right Body (Left Brain) (01.2) Acute left inferior cerebellar infarct. EATING: Activity did not occur on this shift EATING - SCORE: 0-UNK GROOMING: Activity did not occur on this shift GROOMING - SCORE: 0-UNK BATHING: Activity did not occur on this shift BATHING - SCORE: 0-UNK DRESSING - UPPER BODY: Activity did not occur on this shift Patient is not dressing in public clothing ARTICLES SCORE Total number of steps: 0 DRESSING - UPPER BODY - SCORE: 0-UNK DRESSING - LOWER BODY: Activity did not occur on this shift Patient is not dressing in public clothing ARTICLES SCORE Total number of steps: 0 DRESSING - LOWER BODY - SCORE: 0-UNK TOILETING: Activity did not occur on this shift TOILETING - SCORE: 0-UNK BLADDER MANAGEMENT: Activity did not occur on this shift BLADDER MANAGEMENT - SCORE: 7-IND BOWEL MANAGEMENT: Activity did not occur on this shift BOWEL MANAGEMENT - SCORE: 7-IND TRANSFERS: BED, CHAIR, WHEELCHAIR: TRANSFERS: BED, CHAIR, WHEELCHAIR - STEP 1: Does the patient require assistance of a person or device, or need extra time with bed, chair, or whe elchair transfers? Yes. TRANSFERS: BED, CHAIR, WHEELCHAIR - STEP 2: Does the patient require the assistance of a helper? Yes. TRANSFERS: BED, CHAIR, WHEELCHAIR - STEP 3: How much assistance does the patient require from the helper? Steadying/guiding assistance TRANSFERS: BED, CHAIR, WHEELCHAIR - SCORE: 4-MIN TRANSFERS: TOILET: Activity did not occur on this shift TRANSFERS: TOILET - SCORE: 0-UNK TRANSFERS: SHOWER: Activity did not occur on this shift TRANSFERS: SHOWER - SCORE: 0-UNK TRANSFERS: TUB: Activity did not occur on this shift TRANSFERS: TUB - SCORE: 0-UNK LOCOMOTION: WALK: LOCOMOTION: WALK - STEP 1: Does the patient need help from a person or device, or need extra time to walk 150 feet? Yes. LOCOMOTION: WALK - STEP 2: How much assistance does the patient require to walk a minimum of 150 feet? More than incidental help LOCOMOTION: WALK - SCORE: 3-MOD LOCOMOTION: WHEELCHAIR: LOCOMOTION: WHEELCHAIR - STEP 1: Does the patient need help to go 150 feet in a wheelchair? Yes. LOCOMOTION: WHEELCHAIR - STEP 2: How much assistance does the patient need from the helper? Only supervision, cuing, or coaxing LOCOMOTION: WHEELCHAIR - SCORE: 5-SUP LOCOMOTION: STAIRS: Activity did not occur on this shift LOCOMOTION: STAIRS - SCORE: 0-UNK COMPREHENSION: COMPREHENSION - SCORE: 0-UNK EXPRESSION EXPRESSION - SCORE: 0-UNK SOCIAL INTERACTION: SOCIAL INTERACTION - SCORE: 0-UNK PROBLEM SOLVING: PROBLEM SOLVING - SCORE: 0-UNK MEMORY: MEMORY - SCORE: 0-UNK SIGNATURE PANEL: The following modified sections: Transfers: Bed, Chair, Wheelchair - Score, Transfers: Toilet - Score , Locomotion: Walk - Score, Locomotion: Wheelchair - Score, Locomotion: Stairs - Score were [electron shruti] signed by Robert Peters PTA on FriFeb 05 2019 14:40:20 GMT-0600 (Central Standard Time)
[2019-02-05] MEDS: BUMETANIDE PO SCH (17:27)
[2019-02-05] MEDS: TAMSULOSIN 0.4 MG PO SCH (20:23)
[2019-02-05] MEDS: ENOXAPARIN 30 MG/0.3 ML SQ SCH (20:23)
[2019-02-05] MEDS: SIMVASTATIN 80 MG PO SCH (20:23)
--- NOTE | 2019-02-06 02:33 | FAST ---
SHIFT START DATE/TIME: 02/05/2019 19:00 (SALES PROPERTY MANAGER) SHIFT END DATE/TIME: 02/06/2019 07:00 (SALES PROPERTY MANAGER) NAME ALISSON HERNANDEZ DATE OF : 1930 DATE OF ADMISSION: 01/26/2019 13:45 (SALES PROPERTY MANAGER) PHONE: AGE: 88 N# [id number] GENDER: Male ENCOUNTER PHYSICIAN: Dr. Sabino Brewster M.D. ADMISSION DIAGNOSIS: - Stroke 01 - Right Body (Left Brain) (01.2) Acute left inferior cerebellar infarct. EATING: Activity did not occur on this shift EATING - SCORE: 0-UNK GROOMING: Activity did not occur on this shift GROOMING - SCORE: 0-UNK BATHING: Activity did not occur on this shift BATHING - SCORE: 0-UNK DRESSING - UPPER BODY: Patient is not dressing in public clothing ARTICLES SCORE Total number of steps: 0 DRESSING - UPPER BODY - SCORE: 0-UNK DRESSING - LOWER BODY: Patient is not dressing in public clothing ARTICLES SCORE Total number of steps: 0 DRESSING - LOWER BODY - SCORE: 0-UNK TOILETING: TOILETING - STEP 1: Does the patient require the assistance of a person or device, or need extra time with toileting? Yes . TOILETING - STEP 2: Does the patient require the assistance of a helper? Yes. TOILETING - STEP 3: How much assistance does the patient require from the helper? Hands-on assistance from the helper TOILETING - STEP 4: Of the 3 tasks: 1) Adjusting clothing prior to use, 2) Cleansing of perineal area, 3) Adjusting clot gregor after use; How many tasks does the patient perform WITHOUT assistance of the helper? No tasks; hi lindquist performs all three tasks TOILETING - SCORE: 1-DEP BLADDER MANAGEMENT: BLADDER MANAGEMENT - STEP 1: Does the patient control the bladder completely and intentionally without equipment or devices or med ications, and is always continent? No. BLADDER MANAGEMENT - STEP 2: Does the patient require the assistance of a helper? Yes. BLADDER MANAGEMENT - STEP 3: How much assistance does the patient require from the helper? Only set-up of equipment - such as plac ing it within reach of the patient or emptying a device - to maintain either satisfactory voiding pat tern or managing an external device, such as an absorbent pad, ileal device, or catheter BLADDER MANAGEMENT - SCORE: 5-SUP BOWEL MANAGEMENT: Activity did not occur on this shift BOWEL MANAGEMENT - SCORE: 7-IND TRANSFERS: BED, CHAIR, WHEELCHAIR: TRANSFERS: BED, CHAIR, WHEELCHAIR - STEP 1: Does the patient require assistance of a person or device, or need extra time with bed, chair, or whe elchair transfers? Yes. TRANSFERS: BED, CHAIR, WHEELCHAIR - STEP 2: Does the patient require the assistance of a helper? Yes. TRANSFERS: BED, CHAIR, WHEELCHAIR - STEP 3: How much assistance does the patient require from the helper? Lifting of the legs TRANSFERS: BED, CHAIR, WHEELCHAIR - STEP 4: How many legs does the patient require the helper to lift? both legs TRANSFERS: BED, CHAIR, WHEELCHAIR - SCORE: 3-MOD TRANSFERS: TOILET: TRANSFERS: TOILET - STEP 1: Does the patient require the assistance of a person or device, or need extra time with toilet transfe rs? Yes. TRANSFERS: TOILET - STEP 2: Does the patient require the assistance of a helper? Yes. TRANSFERS: TOILET - STEP 3: How much assistance does the patient require from the helper? Patient performs half or more of the tr ansferring tasks TRANSFERS: TOILET - STEP 4: Does the patient need only incidental help such as contact guard or steadying during toilet transfer? No. Patient needs more than incidental help TRANSFERS: TOILET - SCORE: 3-MOD TRANSFERS: SHOWER: Activity did not occur on this shift TRANSFERS: SHOWER - SCORE: 0-UNK TRANSFERS: TUB: Activity did not occur on this shift TRANSFERS: TUB - SCORE: 0-UNK LOCOMOTION: WALK: Activity did not occur on this shift LOCOMOTION: WALK - SCORE: 0-UNK LOCOMOTION: WHEELCHAIR: Activity did not occur on this shift LOCOMOTION: WHEELCHAIR - SCORE: 0-UNK COMPREHENSION: COMPREHENSION: TYPE: Both COMPREHENSION - STEP 1: Does the patient require help from a person or device, or need extra time to understand complex and a bstract ideas (such as current events, finances, discharge planning, medical issues, relationships, e tc)? Yes. COMPREHENSION - STEP 2: Does the patient require help to understand questions or statements about basic needs or ideas (such as hunger, thirst, sleep, safety, daily schedule, room location, or discomfort) half or more of the t ld? No. COMPREHENSION - STEP 3: How often does the patient need help to understand directions and conversation about basic needs? Les s than 10% of the time COMPREHENSION - SCORE: 5-SUP EXPRESSION EXPRESSION: TYPE: Both EXPRESSION - STEP 1: Does the patient require help from a person or device, or need extra time expressing complex and abst ract ideas (such as current events, finances, discharge planning, medical issues, relationships, etc) ? Yes. EXPRESSION - STEP 2: Does the patient require help to express basic necessities or ideas (such as hunger, thirst, sleep, s afety, daily schedule, room location, or discomfort) half or more of the time? No. EXPRESSION - STEP 3: How often does the patient need help to express directions and conversation about basic needs? Less t brady 10% of the time EXPRESSION - SCORE: 5-SUP SOCIAL INTERACTION: SOCIAL INTERACTION - STEP 1: Does the patient require a helper to interact with others in social and therapeutic situations? No. SOCIAL INTERACTION - STEP 2: Does the patient need extra time in social situations, OR does s/he interact with staff, other patien ts, and family members ONLY in structured environments, OR does s/he require medication for social in teraction? Yes, patient needs extra time SOCIAL INTERACTION - SCORE: 6-SINGH PROBLEM SOLVING: PROBLEM SOLVING - STEP 1: Does the patient need help from a person or device, or need extra time to solve complex problems such as managing a checking account or confronting interpersonal problems? Yes. PROBLEM SOLVING - STEP 2: Does the patient solve basic routine problems half or more of the time? Yes. PROBLEM SOLVING - STEP 3: How often does the patient need help to solve basic routine problems? Less than 10% of the time PROBLEM SOLVING - SCORE: 5-SUP MEMORY: MEMORY - STEP 1: Does the patient need help from a person or device, or need extra time to remember frequently encount ered people, daily routines, and executing requests? Yes. MEMORY - STEP 2: How often does the patient need help to remember frequently encountered people, daily routines, and e xecuting requests? Less than 10% of the time MEMORY - SCORE: 5-SUP
[2019-02-06] MEDS: METOPROLOL SUCCINATE 50 MG PO SCH ×2 (05:24→17:26)
[2019-02-06] MEDS: INSULIN -REGULAR HUMAN 50 UNIT/0.5 ML ML SQ SCH ×4 (07:30→21:00)
[2019-02-06] MEDS: SYNTHROID 88 MCG PO SCH (07:55)
[2019-02-06] MEDS: ISOSORBIDE MONONITRATE 60 MG PO SCH (09:01)
[2019-02-06] MEDS: ASPIRIN 81 MG PO SCH (09:01)
[2019-02-06] MEDS: INSULIN GLARGINE 100 UNITS/ML SQ SCH (09:02)
[2019-02-06] MEDS: BUMETANIDE 2 MG PO SCH (09:02)
[2019-02-06] MEDS: MULTIVITAMIN TAB PO SCH (09:03)
[2019-02-06] MEDS: FOLIC ACID 1 MG TABLET PO SCH (09:03)
[2019-02-06] MEDS: CLOPIDOGREL 75 MG TABLET PO SCH (09:03)
--- NOTE | 2019-02-06 11:17 | FAST ---
SHIFT START DATE/TIME: 02/06/2019 07:00 (NUCLEAR MEDICINE PHYSICIAN) SHIFT END DATE/TIME: 02/06/2019 19:00 (NUCLEAR MEDICINE PHYSICIAN) NAME ALISSON HERNANDEZ DATE OF : 1930 DATE OF ADMISSION: 01/26/2019 13:45 (NUCLEAR MEDICINE PHYSICIAN) PHONE: AGE: 88 N# [id number] GENDER: Male ENCOUNTER PHYSICIAN: Dr. Sabino Brewster M.D. ADMISSION DIAGNOSIS: - Stroke 01 - Right Body (Left Brain) (01.2) Acute left inferior cerebellar infarct. EATING: EATING - STEP 1: Does the patient require the assistance of a person or device, or need extra time when eating? Yes. EATING - STEP 2: Does the patient require the assistance of a helper? Yes. EATING - STEP 3: Does the patient perform half or more of the eating tasks? Yes. EATING - STEP 4: Does the patient need only supervision, cuing, coaxing OR help to apply an orthosis OR help to cut fo od, open containers, pour liquids, or butter bread? Yes. EATING - SCORE: 5-SUP GROOMING: Activity did not occur on this shift GROOMING - SCORE: 0-UNK BATHING: Activity did not occur on this shift BATHING - SCORE: 0-UNK DRESSING - UPPER BODY: Activity did not occur on this shift ARTICLES SCORE Total number of steps: 0 DRESSING - UPPER BODY - SCORE: 0-UNK DRESSING - LOWER BODY: ARTICLES SCORE Total number of steps: 5 DRESSING - LOWER BODY - STEP 1: Does the patient require help from a person or device, or need extra time when dressing below the cassandra st? Yes. DRESSING - LOWER BODY - STEP 2: Does the patient require the assistance of a helper? Yes. DRESSING - LOWER BODY - STEP 3: Does the helper touch the patient while dressing? Yes. DRESSING - LOWER BODY - STEP 4: How many of the total steps does the patient complete on his/her own? 2 DRESSING - LOWER BODY - STEP 5: Does patient require total assistance for dressing below the waist such as the helper holding clothin g and performing basically all the activities? No. DRESSING - LOWER BODY - SCORE: 2-MAX TOILETING: TOILETING - STEP 1: Does the patient require the assistance of a person or device, or need extra time with toileting? Yes . TOILETING - STEP 2: Does the patient require the assistance of a helper? Yes. TOILETING - STEP 3: How much assistance does the patient require from the helper? Only supervision TOILETING - SCORE: 5-SUP BLADDER MANAGEMENT: BLADDER MANAGEMENT - STEP 1: Does the patient control the bladder completely and intentionally without equipment or devices or med ications, and is always continent? No. BLADDER MANAGEMENT - STEP 2: Does the patient require the assistance of a helper? No, patient requires and independently uses an a ssistive device, such as a urinal, bedpan, bedside commode, catheter, absorbent pad, or collecting de vice BLADDER MANAGEMENT - SCORE: 6-SINGH BOWEL MANAGEMENT: Activity did not occur on this shift BOWEL MANAGEMENT - SCORE: 7-IND TRANSFERS: BED, CHAIR, WHEELCHAIR: TRANSFERS: BED, CHAIR, WHEELCHAIR - STEP 1: Does the patient require assistance of a person or device, or need extra time with bed, chair, or whe elchair transfers? Yes. TRANSFERS: BED, CHAIR, WHEELCHAIR - STEP 2: Does the patient require the assistance of a helper? Yes. TRANSFERS: BED, CHAIR, WHEELCHAIR - STEP 3: How much assistance does the patient require from the helper? Steadying/guiding assistance TRANSFERS: BED, CHAIR, WHEELCHAIR - SCORE: 4-MIN TRANSFERS: TOILET: TRANSFERS: TOILET - STEP 1: Does the patient require the assistance of a person or device, or need extra time with toilet transfe rs? Yes. TRANSFERS: TOILET - STEP 2: Does the patient require the assistance of a helper? Yes. TRANSFERS: TOILET - STEP 3: How much assistance does the patient require from the helper? Patient performs half or more of the tr ansferring tasks TRANSFERS: TOILET - STEP 4: Does the patient need only incidental help such as contact guard or steadying during toilet transfer? Yes. TRANSFERS: TOILET - SCORE: 4-MIN TRANSFERS: SHOWER: Activity did not occur on this shift TRANSFERS: SHOWER - SCORE: 0-UNK TRANSFERS: TUB: Activity did not occur on this shift TRANSFERS: TUB - SCORE: 0-UNK LOCOMOTION: WALK: Activity did not occur on this shift LOCOMOTION: WALK - SCORE: 0-UNK LOCOMOTION: WHEELCHAIR: Activity did not occur on this shift LOCOMOTION: WHEELCHAIR - SCORE: 0-UNK COMPREHENSION: COMPREHENSION: TYPE: Both COMPREHENSION - STEP 1: Does the patient require help from a person or device, or need extra time to understand complex and a bstract ideas (such as current events, finances, discharge planning, medical issues, relationships, e tc)? No. COMPREHENSION - STEP 2: Does the patient need extra time, require an assistive device (such as glasses for visual comprehensi on or a hearing aid for auditory comprehension) or does s/he have mild difficulty understanding compl ex and abstract information? Yes. COMPREHENSION - SCORE: 6-SINGH EXPRESSION EXPRESSION: TYPE: Both EXPRESSION - STEP 1: Does the patient require help from a person or device, or need extra time expressing complex and abst ract ideas (such as current events, finances, discharge planning, medical issues, relationships, etc) ? No. EXPRESSION - STEP 2: Does the patient need extra time, require an assistive device (such as augmentive communication syste m or a communication board), OR does s/he have mild difficulty expressing complex and abstract ideas (including mild dysarthria or mild word-find problems)? Yes. EXPRESSION - SCORE: 6-SINGH SOCIAL INTERACTION: SOCIAL INTERACTION - STEP 1: Does the patient require a helper to interact with others in social and therapeutic situations? No. SOCIAL INTERACTION - STEP 2: Does the patient need extra time in social situations, OR does s/he interact with staff, other patien ts, and family members ONLY in structured environments, OR does s/he require medication for social in teraction? Yes, patient needs extra time SOCIAL INTERACTION - SCORE: 6-SINGH PROBLEM SOLVING: PROBLEM SOLVING - STEP 1: Does the patient need help from a person or device, or need extra time to solve complex problems such as managing a checking account or confronting interpersonal problems? No. PROBLEM SOLVING - STEP 2: Does the patient require extra time to make decisions or solve problems, OR does s/he have slight dif ficulty reading, initiating, or self-correcting in unfamiliar situations? Yes, patient needs extra ti me. PROBLEM SOLVING - SCORE: 6-SINGH MEMORY: MEMORY - STEP 1: Does the patient need help from a person or device, or need extra time to remember frequently encount ered people, daily routines, and executing requests? No. MEMORY - STEP 2: Does the patient have slight difficulty recognizing frequently encountered people, daily routines, or executing requests without the need for repetition or using self-initiated or environmental cues to remember? Yes. MEMORY - SCORE: 6-SINGH SIGNATURE PANEL: The following modified sections: Eating - Score, Grooming - Score, Bathing - Score, Dressing - Upper Body - Score, Dressing - Lower Body - Score, Toileting - Score, Bladder Management - Score, Bowel Man agement - Score, Transfers: Bed, Chair, Wheelchair - Score, Transfers: Toilet - Score, Transfers: Iris wer - Score, Transfers: Tub - Score, Locomotion: Walk - Score, Locomotion: Wheelchair - Score, Compre hension - Score, Expression - Score, Social Interaction - Score, Problem Solving - Score, Memory - Sc ore were [electronically] signed by Barrera Liang on Sat Feb 06 2019 11:16:10 GMT-0600 (Central Standard Time)
--- NOTE | 2019-02-06 13:26 | PN ---
Date of Progress Note: 02/06/2019 Subjective: The patient was seen this morning for followup. No new complaints or problems reported by patient. He was sitting in wheelchair. Denied any complaints early this morning. His blood suga r was low between 30-40. Once again, he was asymptomatic and this was corrected by nursing staff by giving him juice and crackers 2 different times. The patient denies any complaints. Fingerstick blo od sugar readings reviewed for last 24 hours. Physical Examination: HEENT: Unremarkable. Lungs: Clear to auscultation. Heart: Sounds normal. Abdomen: Soft. Bowel sounds normal. No guarding, rigidity, tenderness, distention. Extremities: No leg edema. Impression: 1.Diabetes mellitus, type 2, uncontrolled. 2.Hypertension. 3.Coronary artery disease. 4.Stroke. 5.Chronic kidney disease, stage 4. Plan: We will go ahead and continue current long-acting insulin dose in the morning and sliding scal e at breakfast, lunch, and dinner time. Upon further questioning to nursing staff and the patient, i t appeared that he did not have the same snack last night at bedtime as previous 2-3 nights. I have instructed nursing staff on multiple different occasions to make sure that the patient should have co nsistency snack without any variation at bedtime that has helped to maintain his blood sugar rather o n higher side and avoiding hypoglycemia. When he was getting that consistent snack at bedtime, his m orning sugar was between 170-220 range, but the moment there is any variation in it, he has hypoglyce tim, so once again, I reinforce to patient and nursing staff to make sure that he gets consistent david unt of same snack every night as I have instructed. Unfortunately, the patient's IV Hep-Lock was rem oswald yesterday by nursing staff without my permission and I have instructed nursing staff again today to go ahead and put the Hep-Lock back in, so we can have IV access available for hypoglycemia treatm ent utilizing IV D50 solution. I did call the patient's daughter and details were discussed with her . AUNG/MODL Voice ID: [id number] Report ID: [id number]
[2019-02-06] MEDS: BUMETANIDE PO SCH (17:25)
[2019-02-06] MEDS: SODIUM CHLORIDE 0.9% 10ML INJ IV SCH (19:56)
[2019-02-06] MEDS: SIMVASTATIN 80 MG PO SCH (20:00)
[2019-02-06] MEDS: ENOXAPARIN 30 MG/0.3 ML SQ SCH (20:00)
[2019-02-06] MEDS: TAMSULOSIN 0.4 MG PO SCH (20:00)
--- NOTE | 2019-02-07 03:27 | FAST ---
SHIFT START DATE/TIME: 02/06/2019 19:00 (ACTUARIAL MATHEMATICIAN) SHIFT END DATE/TIME: 02/07/2019 08:00 (CDT) NAME ALISSON HERNANDEZ DATE OF : 1930 DATE OF ADMISSION: 01/26/2019 13:45 (ACTUARIAL MATHEMATICIAN) PHONE: AGE: 88 SSN# [id number] GENDER: Male ENCOUNTER PHYSICIAN: Dr. Sabino Brewster M.D. ADMISSION DIAGNOSIS: - Stroke 01 - Right Body (Left Brain) (01.2) Acute left inferior cerebellar infarct. EATING: Activity did not occur on this shift EATING - SCORE: 0-UNK GROOMING: Activity did not occur on this shift GROOMING - SCORE: 0-UNK BATHING: Activity did not occur on this shift BATHING - SCORE: 0-UNK DRESSING - UPPER BODY: Patient is not dressing in public clothing ARTICLES SCORE Total number of steps: 0 DRESSING - UPPER BODY - SCORE: 0-UNK DRESSING - LOWER BODY: Patient is not dressing in public clothing ARTICLES SCORE Total number of steps: 0 DRESSING - LOWER BODY - SCORE: 0-UNK TOILETING: Activity did not occur on this shift TOILETING - SCORE: 0-UNK BLADDER MANAGEMENT: BLADDER MANAGEMENT - STEP 1: Does the patient control the bladder completely and intentionally without equipment or devices or med ications, and is always continent? No. BLADDER MANAGEMENT - STEP 2: Does the patient require the assistance of a helper? Yes. BLADDER MANAGEMENT - STEP 3: How much assistance does the patient require from the helper? Patient requires contact assistance fro m the helper BLADDER MANAGEMENT - STEP 4: How much contact assistance does the patient require from the helper? Patient requires moderate shantell tance, and performs 50% to 75% of bladder management tasks - [place] positions AND holds urinal or bed luna BLADDER MANAGEMENT - SCORE: 3-MOD BOWEL MANAGEMENT: Activity did not occur on this shift BOWEL MANAGEMENT - SCORE: 7-IND TRANSFERS: BED, CHAIR, WHEELCHAIR: TRANSFERS: BED, CHAIR, WHEELCHAIR - STEP 1: Does the patient require assistance of a person or device, or need extra time with bed, chair, or whe elchair transfers? Yes. TRANSFERS: BED, CHAIR, WHEELCHAIR - STEP 2: Does the patient require the assistance of a helper? Yes. TRANSFERS: BED, CHAIR, WHEELCHAIR - STEP 3: How much assistance does the patient require from the helper? Lifting of the legs TRANSFERS: BED, CHAIR, WHEELCHAIR - STEP 4: How many legs does the patient require the helper to lift? both legs TRANSFERS: BED, CHAIR, WHEELCHAIR - SCORE: 3-MOD TRANSFERS: TOILET: Activity did not occur on this shift TRANSFERS: TOILET - SCORE: 0-UNK TRANSFERS: SHOWER: Activity did not occur on this shift TRANSFERS: SHOWER - SCORE: 0-UNK TRANSFERS: TUB: Activity did not occur on this shift TRANSFERS: TUB - SCORE: 0-UNK LOCOMOTION: WALK: Activity did not occur on this shift LOCOMOTION: WALK - SCORE: 0-UNK LOCOMOTION: WHEELCHAIR: Activity did not occur on this shift LOCOMOTION: WHEELCHAIR - SCORE: 0-UNK COMPREHENSION: COMPREHENSION: TYPE: Both COMPREHENSION - STEP 1: Does the patient require help from a person or device, or need extra time to understand complex and a bstract ideas (such as current events, finances, discharge planning, medical issues, relationships, e tc)? No. COMPREHENSION - STEP 2: Does the patient need extra time, require an assistive device (such as glasses for visual comprehensi on or a hearing aid for auditory comprehension) or does s/he have mild difficulty understanding compl ex and abstract information? Yes. COMPREHENSION - SCORE: 6-SINGH EXPRESSION EXPRESSION: TYPE: Both EXPRESSION - STEP 1: Does the patient require help from a person or device, or need extra time expressing complex and abst ract ideas (such as current events, finances, discharge planning, medical issues, relationships, etc) ? No. EXPRESSION - STEP 2: Does the patient need extra time, require an assistive device (such as augmentive communication syste m or a communication board), OR does s/he have mild difficulty expressing complex and abstract ideas (including mild dysarthria or mild word-find problems)? No. EXPRESSION - SCORE: 7-IND SOCIAL INTERACTION: SOCIAL INTERACTION - STEP 1: Does the patient require a helper to interact with others in social and therapeutic situations? No. SOCIAL INTERACTION - STEP 2: Does the patient need extra time in social situations, OR does s/he interact with staff, other patien ts, and family members ONLY in structured environments, OR does s/he require medication for social in teraction? Yes, patient needs extra time SOCIAL INTERACTION - SCORE: 6-SINGH PROBLEM SOLVING: Patient requires bed/chair alarms due to attempts to get up unassisted when helper is needed. PROBLEM SOLVING - STEP 1: How often do the bed/chair alarms go off? Occasionally - the alarms go off about 25% or less PROBLEM SOLVING - SCORE: 4-MIN MEMORY: MEMORY - STEP 1: How often do the bed/chair alarms go off? Occasionally - the alarms go off about 25% of the time or l ess MEMORY - SCORE: 4-MIN SIGNATURE PANEL: The following modified sections: Eating - Score, Grooming - Score, Bathing - Score, Dressing - Upper Body - Score, Dressing - Lower Body - Score, Toileting - Score, Bladder Management - Score, Bowel Man agement - Score, Transfers: Bed, Chair, Wheelchair - Score, Transfers: Toilet - Score, Transfers: Iris wer - Score, Transfers: Tub - Score, Locomotion: Walk - Score, Locomotion: Wheelchair - Score, Compre hension - Score, Expression - Score, Social Interaction - Score, Problem Solving - Score, Memory - Sc ore were [electronically] signed by Ileana Cleary CNA on FriFeb 07 2019 03:26:45 T-0500 ([place] Da ylight Time)
[2019-02-07] MEDS: METOPROLOL SUCCINATE 50 MG PO SCH ×2 (05:01→17:20)
[2019-02-07] MEDS: SYNTHROID 88 MCG PO SCH (06:46)
[2019-02-07] MEDS: SODIUM CHLORIDE 0.9% 10ML INJ IV SCH ×2 (06:47→20:26)
[2019-02-07] MEDS: INSULIN -REGULAR HUMAN 50 UNIT/0.5 ML ML SQ SCH ×3 (08:24→16:30)
[2019-02-07] MEDS: INSULIN GLARGINE 100 UNITS/ML SQ SCH (08:25)
[2019-02-07] MEDS: FOLIC ACID 1 MG TABLET PO SCH (08:26)
[2019-02-07] MEDS: ASPIRIN 81 MG PO SCH (08:26)
[2019-02-07] MEDS: CLOPIDOGREL 75 MG TABLET PO SCH (08:26)
[2019-02-07] MEDS: BUMETANIDE 2 MG PO SCH (08:26)
[2019-02-07] MEDS: MULTIVITAMIN TAB PO SCH (08:26)
[2019-02-07] MEDS: ISOSORBIDE MONONITRATE 60 MG PO SCH (08:28)
--- NOTE | 2019-02-07 11:08 | FAST ---
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 Sabino Brewster M.D. ADMISSION DIAGNOSIS: - Stroke 01 - Right Body (Left Brain) (01.2) Acute left inferior cerebellar infarct. EATING: EATING - STEP 1: Does the patient require the assistance of a person or device, or need extra time when eating? Yes. EATING - STEP 2: Does the patient require the assistance of a helper? No, patient only requires an assistive device, O R s/he takes more than reasonable time to eat, OR there is a safety concern, OR s/he requires modifie d food consistency EATING - SCORE: 6-SINGH GROOMING: Activity did not occur on this shift GROOMING - SCORE: 0-UNK BATHING: Activity did not occur on this shift BATHING - SCORE: 0-UNK DRESSING - UPPER BODY: Activity did not occur on this shift ARTICLES SCORE Total number of steps: 0 DRESSING - UPPER BODY - SCORE: 0-UNK DRESSING - LOWER BODY: Activity did not occur on this shift ARTICLES SCORE Total number of steps: 0 DRESSING - LOWER BODY - SCORE: 0-UNK TOILETING: TOILETING - STEP 1: Does the patient require the assistance of a person or device, or need extra time with toileting? Yes . TOILETING - STEP 2: Does the patient require the assistance of a helper? Yes. TOILETING - STEP 3: How much assistance does the patient require from the helper? Hands-on assistance from the helper TOILETING - STEP 4: Of the 3 tasks: 1) Adjusting clothing prior to use, 2) Cleansing of perineal area, 3) Adjusting clot gregor after use; How many tasks does the patient perform WITHOUT assistance of the helper? Two tasks TOILETING - SCORE: 3-MOD BLADDER MANAGEMENT: BLADDER MANAGEMENT - STEP 1: Does the patient control the bladder completely and intentionally without equipment or devices or med ications, and is always continent? No. BLADDER MANAGEMENT - STEP 2: Does the patient require the assistance of a helper? No, patient requires and independently uses an a ssistive device, such as a urinal, bedpan, bedside commode, catheter, absorbent pad, or collecting de vice BLADDER MANAGEMENT - SCORE: 6-SINGH BOWEL MANAGEMENT: BOWEL MANAGEMENT - STEP 1: Does the patient control bowels completely and intentionally without equipment devices or medications AND is always continent? No. BOWEL MANAGEMENT - STEP 2: Does the patient require the assistance of a helper? No, patient requires and manages independently a n assistive device such as a bedpan, bedside commode, absorbent pad, incontinent device, or collectin g device BOWEL MANAGEMENT - SCORE: 6-SINGH TRANSFERS: BED, CHAIR, WHEELCHAIR: TRANSFERS: BED, CHAIR, WHEELCHAIR - STEP 1: Does the patient require assistance of a person or device, or need extra time with bed, chair, or whe elchair transfers? Yes. TRANSFERS: BED, CHAIR, WHEELCHAIR - STEP 2: Does the patient require the assistance of a helper? Yes. TRANSFERS: BED, CHAIR, WHEELCHAIR - STEP 3: How much assistance does the patient require from the helper? Steadying/guiding assistance TRANSFERS: BED, CHAIR, WHEELCHAIR - SCORE: 4-MIN TRANSFERS: TOILET: TRANSFERS: TOILET - STEP 1: Does the patient require the assistance of a person or device, or need extra time with toilet transfe rs? Yes. TRANSFERS: TOILET - STEP 2: Does the patient require the assistance of a helper? Yes. TRANSFERS: TOILET - STEP 3: How much assistance does the patient require from the helper? Patient performs half or more of the tr ansferring tasks TRANSFERS: TOILET - STEP 4: Does the patient need only incidental help such as contact guard or steadying during toilet transfer? Yes. TRANSFERS: TOILET - SCORE: 4-MIN TRANSFERS: SHOWER: Activity did not occur on this shift TRANSFERS: SHOWER - SCORE: 0-UNK TRANSFERS: TUB: Activity did not occur on this shift TRANSFERS: TUB - SCORE: 0-UNK LOCOMOTION: WALK: Activity did not occur on this shift LOCOMOTION: WALK - SCORE: 0-UNK LOCOMOTION: WHEELCHAIR: Activity did not occur on this shift LOCOMOTION: WHEELCHAIR - SCORE: 0-UNK COMPREHENSION: COMPREHENSION: TYPE: Both COMPREHENSION - STEP 1: Does the patient require help from a person or device, or need extra time to understand complex and a bstract ideas (such as current events, finances, discharge planning, medical issues, relationships, e tc)? No. COMPREHENSION - STEP 2: Does the patient need extra time, require an assistive device (such as glasses for visual comprehensi on or a hearing aid for auditory comprehension) or does s/he have mild difficulty understanding compl ex and abstract information? Yes. COMPREHENSION - SCORE: 6-SINGH EXPRESSION EXPRESSION: TYPE: Both EXPRESSION - STEP 1: Does the patient require help from a person or device, or need extra time expressing complex and abst ract ideas (such as current events, finances, discharge planning, medical issues, relationships, etc) ? No. EXPRESSION - STEP 2: Does the patient need extra time, require an assistive device (such as augmentive communication syste m or a communication board), OR does s/he have mild difficulty expressing complex and abstract ideas (including mild dysarthria or mild word-find problems)? Yes. EXPRESSION - SCORE: 6-SINGH SOCIAL INTERACTION: SOCIAL INTERACTION - STEP 1: Does the patient require a helper to interact with others in social and therapeutic situations? No. SOCIAL INTERACTION - STEP 2: Does the patient need extra time in social situations, OR does s/he interact with staff, other patien ts, and family members ONLY in structured environments, OR does s/he require medication for social in teraction? Yes, patient needs extra time SOCIAL INTERACTION - SCORE: 6-SINGH PROBLEM SOLVING: PROBLEM SOLVING - STEP 1: Does the patient need help from a person or device, or need extra time to solve complex problems such as managing a checking account or confronting interpersonal problems? No. PROBLEM SOLVING - STEP 2: Does the patient require extra time to make decisions or solve problems, OR does s/he have slight dif ficulty reading, initiating, or self-correcting in unfamiliar situations? Yes, patient needs extra ti me. PROBLEM SOLVING - SCORE: 6-SINGH MEMORY: MEMORY - STEP 1: Does the patient need help from a person or device, or need extra time to remember frequently encount ered people, daily routines, and executing requests? No. MEMORY - STEP 2: Does the patient have slight difficulty recognizing frequently encountered people, daily routines, or executing requests without the need for repetition or using self-initiated or environmental cues to remember? Yes. MEMORY - SCORE: 6-SINGH SIGNATURE PANEL: The following modified sections: Eating - Score, Grooming - Score, Bathing - Score, Dressing - Upper Body - Score, Dressing - Lower Body - Score, Toileting - Score, Bladder Management - Score, Bowel Man agement - Score, Transfers: Bed, Chair, Wheelchair - Score, Transfers: Toilet - Score, Transfers: Iris wer - Score, Transfers: Tub - Score, Locomotion: Walk - Score, Locomotion: Wheelchair - Score, Compre hension - Score, Expression - Score, Social Interaction - Score, Problem Solving - Score, Memory - Sc ore were [electronically] signed by Barrera Liang on FriFeb 07 2019 11:07:38 GMT-0500 (Central Daylight Time)
--- NOTE | 2019-02-07 16:03 | PN ---
Date of Progress Note: 02/07/2019 Subjective: The patient was seen this morning for followup. No new complaints or problems reported by the patient. He was sitting in chair. Denied any complaints. No nausea, vomiting. No chest gabby n. No shortness of breath. Objective: Vital Signs: Reviewed. HEENT: Unremarkable. Lungs: Clear to auscultation. Heart: Sounds normal. Abdomen: Soft. Bowel sounds normal. No guarding, rigidity, tenderness, distention. Extremities: No leg edema. Laboratory Data: Fingerstick blood sugar readings reviewed yesterday around lunch time, his blood lincoln gar had gone up, but this is likely because he had some pancakes that was brought in that he ate betw een breakfast and lunch time and this was brought in by his friends. Rest of the blood sugar looks b maris. This morning, his blood sugar before breakfast at 7 a.m. was 157. Impression: 1.Diabetes mellitus, type 2, uncontrolled. 2.Stroke. 3.Hypertension. 4.Coronary artery disease. 5.Hyperlipidemia. Plan: We will continue current medication. I asked the patient what he ate last night for snack and informed me that he had peanut butter and jelly sandwich, chocolate milk and a cup of cottage cheese . I advised him to continue peanut butter and jelly sandwich every night and instead of chocolate mi lk, he would like to have variation between chocolate milk, strawberry milk or vanilla milk, which is okay, but at least he needs to have 1 of that at night with his sandwich and he can have either a co ttage cheese or a cup of nuts at night time and he was also advised that he needs to have this kind o f consistency going on even after discharge from the hospital as far as his 3 meals and a bedtime snack is concerned in order for us to have better control of diabetes. I will see him tomorr ow. AUNG/MODL Voice ID: [id number] Report ID: [id number]
--- NOTE | 2019-02-07 16:14 | PN ---
Date of Progress Note: 02/07/2019 Subjective: The patient was admitted with CVA, transferred to rehab for rehabilitation . Physical Examination: Vital Signs: Blood pressure 148/65, pulse of 88. Chest: Clear to auscultation. Heart: S1, S2. Regular. Abdomen: Soft, nontender. Extremities: Trace edema. Neuro: Alert. On wheelchair. Laboratory Data: Reviewed. Medications: Reviewed. The patient on Bumex 1 mg in the morning and 0.5 mg at night, has been adjusted recently. The patien t tolerated the Bumex very well. Assessment And Plan: 1.Chronic kidney disease, stable, on baseline. Continue current medication. 2.Edema secondary to cardio-renal response to current dose of Bumex. Continue Bumex. 3.Hypertension, controlled, optimal. Continue current medication. 4.Cerebrovascular accident. Continue PT, OT. MELISSA Voice ID: [id number] Report ID: [id number]
[2019-02-07] MEDS: BUMETANIDE PO SCH (17:21)
[2019-02-07] MEDS: TAMSULOSIN 0.4 MG PO SCH (20:25)
[2019-02-07] MEDS: SIMVASTATIN 80 MG PO SCH (20:25)
[2019-02-07] MEDS: ENOXAPARIN 30 MG/0.3 ML SQ SCH (20:25)
[2019-02-08] MEDS: METOPROLOL SUCCINATE 50 MG PO SCH ×2 (05:18→16:49)
[2019-02-08] MEDS: SYNTHROID 88 MCG PO SCH (06:39)
[2019-02-08] MEDS: FOLIC ACID 1 MG TABLET PO SCH (08:40)
[2019-02-08] MEDS: MULTIVITAMIN TAB PO SCH (08:43)
[2019-02-08] MEDS: ISOSORBIDE MONONITRATE 60 MG PO SCH (08:43)
[2019-02-08] MEDS: CLOPIDOGREL 75 MG TABLET PO SCH (08:43)
[2019-02-08] MEDS: ASPIRIN 81 MG PO SCH (08:44)
[2019-02-08] MEDS: BUMETANIDE 2 MG PO SCH (08:44)
[2019-02-08] MEDS: INSULIN -REGULAR HUMAN 50 UNIT/0.5 ML ML SQ SCH ×3 (09:33→16:48)
[2019-02-08] MEDS: INSULIN GLARGINE 100 UNITS/ML SQ SCH (09:33)
[2019-02-08] MEDS: SODIUM CHLORIDE 0.9% 10ML INJ IV SCH ×2 (09:35→20:00)
--- NOTE | 2019-02-08 14:12 | PN ---
Date of Progress Note: 02/08/2019 Subjective: The patient was seen this morning for followup. He was sitting at the bedside. No new complaints, problems reported by patient. Objective: Vital Signs: Reviewed. HEENT: Unremarkable. Lungs: Clear to auscultation. Heart: Sounds normal. Abdomen: Soft. Bowel sounds normal. No guarding, rigidity, tenderness, or distention. Extremities: No leg edema. Laboratory Data: Fingerstick blood sugar readings reviewed. This morning, his fingerstick blood glu cose level was 163. Impression: 1.Diabetes mellitus, uncontrolled. 2.Coronary artery disease. 3.Hypertension. 4.Hyperlipidemia. 5.Hypothyroidism. 6.Stroke. Plan: We will continue current aspirin, Plavix, antihypertensive medication, and current diabetes ma nagement with current insulin. The patient had bedtime snack as discussed and as suggested and that is helping him to avoid any life insurance agent hypoglycemia problem and we will continue this. We will no t change any insulin dose today. Depending on how his blood sugar is, I will decide if his Lantus in sulin dose will be lowered tomorrow or not depending on his blood sugar readings today. The last 24 hour fingerstick blood sugar readings reviewed. AUNG/MODL Voice ID: [id number] Report ID: [id number]
--- NOTE | 2019-02-08 14:22 | FAST ---
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 Sabino Brewster M.D. ADMISSION DIAGNOSIS: - Stroke 01 - Right Body (Left Brain) (01.2) Acute left inferior cerebellar infarct. EATING: Activity did not occur on this shift EATING - SCORE: 0-UNK GROOMING: Activity did not occur on this shift GROOMING - SCORE: 0-UNK BATHING: Activity did not occur on this shift BATHING - SCORE: 0-UNK DRESSING - UPPER BODY: Activity did not occur on this shift Patient is not dressing in public clothing ARTICLES SCORE Total number of steps: 0 DRESSING - UPPER BODY - SCORE: 0-UNK DRESSING - LOWER BODY: Activity did not occur on this shift Patient is not dressing in public clothing ARTICLES SCORE Total number of steps: 0 DRESSING - LOWER BODY - SCORE: 0-UNK TOILETING: Activity did not occur on this shift TOILETING - SCORE: 0-UNK BLADDER MANAGEMENT: Activity did not occur on this shift BLADDER MANAGEMENT - SCORE: 7-IND BOWEL MANAGEMENT: Activity did not occur on this shift BOWEL MANAGEMENT - SCORE: 7-IND TRANSFERS: BED, CHAIR, WHEELCHAIR: TRANSFERS: BED, CHAIR, WHEELCHAIR - STEP 1: Does the patient require assistance of a person or device, or need extra time with bed, chair, or whe elchair transfers? Yes. TRANSFERS: BED, CHAIR, WHEELCHAIR - STEP 2: Does the patient require the assistance of a helper? Yes. TRANSFERS: BED, CHAIR, WHEELCHAIR - STEP 3: How much assistance does the patient require from the helper? Steadying/guiding assistance TRANSFERS: BED, CHAIR, WHEELCHAIR - SCORE: 4-MIN TRANSFERS: TOILET: TRANSFERS: TOILET - STEP 1: Does the patient require the assistance of a person or device, or need extra time with toilet transfe rs? Yes. TRANSFERS: TOILET - STEP 2: Does the patient require the assistance of a helper? No. Patient only requires an assistive device lincoln ch as a grab bar or special seat, OR s/he takes more than reasonable time to perform toilet transfers , OR there is a safety concern when s/he performs toilet transfers. TRANSFERS: TOILET - SCORE: 6-SINGH TRANSFERS: SHOWER: Activity did not occur on this shift TRANSFERS: SHOWER - SCORE: 0-UNK TRANSFERS: TUB: Activity did not occur on this shift TRANSFERS: TUB - SCORE: 0-UNK LOCOMOTION: WALK: LOCOMOTION: WALK - STEP 1: Does the patient need help from a person or device, or need extra time to walk 150 feet? Yes. LOCOMOTION: WALK - STEP 2: How much assistance does the patient require to walk a minimum of 150 feet? Only incidental help such as contact guarding or steadying LOCOMOTION: WALK - SCORE: 4-MIN LOCOMOTION: WHEELCHAIR: LOCOMOTION: WHEELCHAIR - STEP 1: Does the patient need help to go 150 feet in a wheelchair? Yes. LOCOMOTION: WHEELCHAIR - STEP 2: How much assistance does the patient need from the helper? Only supervision, cuing, or coaxing LOCOMOTION: WHEELCHAIR - SCORE: 5-SUP LOCOMOTION: STAIRS: Activity did not occur on this shift LOCOMOTION: STAIRS - SCORE: 0-UNK COMPREHENSION: COMPREHENSION - SCORE: 0-UNK EXPRESSION EXPRESSION - SCORE: 0-UNK SOCIAL INTERACTION: SOCIAL INTERACTION - SCORE: 0-UNK PROBLEM SOLVING: PROBLEM SOLVING - SCORE: 0-UNK MEMORY: MEMORY - SCORE: 0-UNK SIGNATURE PANEL: The following modified sections: Transfers: Bed, Chair, Wheelchair - Score, Transfers: Toilet - Score , Locomotion: Walk - Score, Locomotion: Wheelchair - Score, Locomotion: Stairs - Score were [nate bahena] signed by Su Roberts PTA on FriFeb 08 2019 14:21:41 T-0500 (Central Daylight Time)
--- NOTE | 2019-02-08 16:03 | FAST ---
SHIFT START DATE/TIME: 02/08/2019 07:00 (CDT) SHIFT END DATE/TIME: 02/08/2019 19:00 (CDT) NAME ALISSON HERNANDEZ DATE OF : 1930 DATE OF ADMISSION: 01/26/2019 13:45 (MANAGER CCU) PHONE: AGE: 88 SSN# [id number] GENDER: Male ENCOUNTER PHYSICIAN: Dr. Sabino Brewster M.D. ADMISSION DIAGNOSIS: - Stroke 01 - Right Body (Left Brain) (01.2) Acute left inferior cerebellar infarct. EATING: EATING - STEP 1: Does the patient require the assistance of a person or device, or need extra time when eating? Yes. EATING - STEP 2: Does the patient require the assistance of a helper? Yes. EATING - STEP 3: Does the patient perform half or more of the eating tasks? Yes. EATING - STEP 4: Does the patient need only supervision, cuing, coaxing OR help to apply an orthosis OR help to cut fo od, open containers, pour liquids, or butter bread? Yes. EATING - SCORE: 5-SUP GROOMING: Comb/brush hair Oral care Wash, rinse, and dry face Wash, rinse, and dry hands GROOMING - STEP 1: Does the patient require the assistance of a person or device, or need extra time when grooming? Yes. GROOMING - STEP 2: Does the patient require the assistance of a helper? No. The patient only requires an assistive devic e, OR takes more than reasonable time to groom, OR there is a concern for safety as the patient groom s GROOMING - SCORE: 6-SINGH BATHING: Activity did not occur on this shift BATHING - SCORE: 0-UNK DRESSING - UPPER BODY: Activity did not occur on this shift ARTICLES SCORE Total number of steps: 0 DRESSING - UPPER BODY - SCORE: 0-UNK DRESSING - UPPER BODY - COMMENTS: Will change during shower time with therapist DRESSING - LOWER BODY: Activity did not occur on this shift ARTICLES SCORE Total number of steps: 0 DRESSING - LOWER BODY - SCORE: 0-UNK DRESSING - LOWER BODY - COMMENTS: Pt will change during shower time with therapist TOILETING: TOILETING - STEP 1: Does the patient require the assistance of a person or device, or need extra time with toileting? Yes . TOILETING - STEP 2: Does the patient require the assistance of a helper? Yes. TOILETING - STEP 3: How much assistance does the patient require from the helper? Hands-on assistance from the helper TOILETING - STEP 4: Of the 3 tasks: 1) Adjusting clothing prior to use, 2) Cleansing of perineal area, 3) Adjusting clot gregor after use; How many tasks does the patient perform WITHOUT assistance of the helper? Two tasks TOILETING - SCORE: 3-MOD BLADDER MANAGEMENT: BLADDER MANAGEMENT - STEP 1: Does the patient control the bladder completely and intentionally without equipment or devices or med ications, and is always continent? No. BLADDER MANAGEMENT - STEP 2: Does the patient require the assistance of a helper? Yes. BLADDER MANAGEMENT - STEP 3: How much assistance does the patient require from the helper? Only supervision, stand-by, cuing, or c oaxing BLADDER MANAGEMENT - SCORE: 5-SUP BLADDER MANAGEMENT - FREQUENCY OF ACCIDENTS: BLADDER MANAGEMENT(FA) - STEP 1: How many accidents has the patient had during the current shift? 0 BOWEL MANAGEMENT: Activity did not occur on this shift BOWEL MANAGEMENT - SCORE: 7-IND BOWEL MANAGEMENT - FREQUENCY OF ACCIDENTS: BOWEL MANAGEMENT(FA) - STEP 1: How many accidents has the patient had during the current shift? 0 TRANSFERS: BED, CHAIR, WHEELCHAIR: TRANSFERS: BED, CHAIR, WHEELCHAIR - STEP 1: Does the patient require assistance of a person or device, or need extra time with bed, chair, or whe elchair transfers? Yes. TRANSFERS: BED, CHAIR, WHEELCHAIR - STEP 2: Does the patient require the assistance of a helper? Yes. TRANSFERS: BED, CHAIR, WHEELCHAIR - STEP 3: How much assistance does the patient require from the helper? Lifting of the legs TRANSFERS: BED, CHAIR, WHEELCHAIR - STEP 4: How many legs does the patient require the helper to lift? one leg TRANSFERS: BED, CHAIR, WHEELCHAIR - SCORE: 4-MIN TRANSFERS: TOILET: TRANSFERS: TOILET - STEP 1: Does the patient require the assistance of a person or device, or need extra time with toilet transfe rs? Yes. TRANSFERS: TOILET - STEP 2: Does the patient require the assistance of a helper? Yes. TRANSFERS: TOILET - STEP 3: How much assistance does the patient require from the helper? Patient performs half or more of the tr ansferring tasks TRANSFERS: TOILET - STEP 4: Does the patient need only incidental help such as contact guard or steadying during toilet transfer? Yes. TRANSFERS: TOILET - SCORE: 4-MIN TRANSFERS: SHOWER: Activity did not occur on this shift TRANSFERS: SHOWER - SCORE: 0-UNK TRANSFERS: TUB: Activity did not occur on this shift TRANSFERS: TUB - SCORE: 0-UNK LOCOMOTION: WALK: Activity did not occur on this shift LOCOMOTION: WALK - SCORE: 0-UNK LOCOMOTION: WHEELCHAIR: Activity did not occur on this shift LOCOMOTION: WHEELCHAIR - SCORE: 0-UNK COMPREHENSION: COMPREHENSION: TYPE: Both COMPREHENSION - STEP 1: Does the patient require help from a person or device, or need extra time to understand complex and a bstract ideas (such as current events, finances, discharge planning, medical issues, relationships, e tc)? No. COMPREHENSION - STEP 2: Does the patient need extra time, require an assistive device (such as glasses for visual comprehensi on or a hearing aid for auditory comprehension) or does s/he have mild difficulty understanding compl ex and abstract information? Yes. COMPREHENSION - SCORE: 6-SINGH EXPRESSION EXPRESSION: TYPE: Both EXPRESSION - STEP 1: Does the patient require help from a person or device, or need extra time expressing complex and abst ract ideas (such as current events, finances, discharge planning, medical issues, relationships, etc) ? No. EXPRESSION - STEP 2: Does the patient need extra time, require an assistive device (such as augmentive communication syste m or a communication board), OR does s/he have mild difficulty expressing complex and abstract ideas (including mild dysarthria or mild word-find problems)? Yes. EXPRESSION - SCORE: 6-SINGH SOCIAL INTERACTION: SOCIAL INTERACTION - STEP 1: Does the patient require a helper to interact with others in social and therapeutic situations? No. SOCIAL INTERACTION - STEP 2: Does the patient need extra time in social situations, OR does s/he interact with staff, other patien ts, and family members ONLY in structured environments, OR does s/he require medication for social in teraction? Yes, patient needs extra time SOCIAL INTERACTION - SCORE: 6-SINGH PROBLEM SOLVING: PROBLEM SOLVING - STEP 1: Does the patient need help from a person or device, or need extra time to solve complex problems such as managing a checking account or confronting interpersonal problems? No. PROBLEM SOLVING - STEP 2: Does the patient require extra time to make decisions or solve problems, OR does s/he have slight dif ficulty reading, initiating, or self-correcting in unfamiliar situations? Yes, patient needs extra ti me. PROBLEM SOLVING - SCORE: 6-SINGH MEMORY: MEMORY - STEP 1: Does the patient need help from a person or device, or need extra time to remember frequently encount ered people, daily routines, and executing requests? No. MEMORY - STEP 2: Does the patient have slight difficulty recognizing frequently encountered people, daily routines, or executing requests without the need for repetition or using self-initiated or environmental cues to remember? Yes. MEMORY - SCORE: 6-SINGH SIGNATURE PANEL: The following modified sections: Eating - Score, Grooming - Score, Bathing - Score, Dressing - Upper Body - Score, Dressing - Upper Body - Comments:, Dressing - Lower Body - Score, Dressing - Lower Body - Comments:, Toileting - Score, Bladder Management - Score, Bowel Management - Score, Transfers: Bed , Chair, Wheelchair - Score, Transfers: Toilet - Score, Transfers: Shower - Score, Transfers: Tub - S core, Locomotion: Walk - Score, Locomotion: Wheelchair - Score, Comprehension - Score, Expression - S core, Social Interaction - Score, Problem Solving - Score, Memory - Score were [electronically] talon d by Jaron HunterNJoseph on FriFeb 08 2019 16:01:55 T-0500 (Central Daylight Time)
[2019-02-08] MEDS: BUMETANIDE PO SCH (16:49)
--- NOTE | 2019-02-08 18:45 | R.PN ---
ENCOUNTER DATE AND TIME: 02/08/2019 18:42 (CDT) NAME ALISSON HERNANDEZ DATE OF : 1930 DATE OF ADMISSION: 01/26/2019 13:45 (MANAGER CLINICAL APPLICATIONS) Acute left inferior cerebellar infarctCHIEF COMPLAINT: Left cerebellar stroke SUBJECTIVE: Pt denied any Shortness of Breath. Pt denied any depression. Wheelchair mobility done with standby assistance for 430'. Ambulated 354' with minimum to moderate assistance using a rolling walker. Blood sugars 162 to [address] Puga. Prealbumin 22.9. VITAL SIGNS Temperature: 97.9 F SBP/DBP: 175/72 Pulse: 60 Resp: 16 MEDICATION ALLERGIES: No Known Drug Allergies (NKDA) ENVIRONMENTAL ALLERGIES: None Known - Substance Allergies None Known - Other Allergies None Known NURSING: - Shower allowing shower - Lab Results blood Sugar Check ACHS - Bladder care per protocol - Skin care per protocol PRECAUTIONS: - Weight Bearing Precaution WBAT right LE ACTIVITIES OOB only with supervision THERAPIES: - Occupational Therapy Evaluate and Treat. Visual Perceptual Training. Cognitive Retraining. - Speech Therapy Cognitive Training. Memory Strategies. Speech Intelligibility Training. Expressive Language Skills. R eceptive Language Skills. - Physical Therapy Evaluate and Treat. PHYSICAL EXAM - Gen Alert and awake Lying in bed No apparent distress Oriented to: person, time, and place - Skin No beakdown No abnormalities - Eyes No abnormalities - Neck No abnormalities - CVS RRR - Chest Clear - Abd + bowel sounds - GI Soft Deferred - No abnormalities - Ext No significant edema - MSK 4+/5 weakness in left upper and lower extremities. - Neuro 4/5 strength left upper and lower extremities. - Psych No abnormalities ASSESSMENT: Pt. is a 88 yo Right-handed white male.On 01/21/2019 Pt. presented to [facility] with sudden onset of right-side weakness.On 01/21/2019 [facility] with diagnosis Acute left inferior cerebellar infarct.His impairment category is Stroke 01 - Right Body (Left Brain) (01.2).Pre-morbidly, Pt. was independent/mod-I in Self-Care, Locomotion, Sph incter Control, Transfers Control, Communication, and Social Cognition; and he had good Sphincter Con trol.Currently, he has deficits of Balance, Self-Care, Locomotion, Endurance, Safety Awareness, and T ransfers Control.Pt. is now referred to [facility] for acute in-patient rehabi litation in order to maximize patient's functional independence in activities of daily living, streng th, ROM, and mobility.- Rehab Goal Patient has realistic goal of being discharged at assistance level 6-Harlan to reside at Home with Fam es/Relatives. MDM/PLAN: - Physical Therapy Gait dysfunction - to improve, our physical therapists will perform initial evaluation of pt's statu s upon admission and devise an individualized program for Gait Training, and Wheel Chair mobility Inability to transfer - to improve, our physical therapists will perform initial evaluation of pt's status upon admission and devise an individualized program for Bed mobility Need for home safety evaluation - to improve, our physical therapists will perform initial evaluatio n of pt's status upon admission and devise an individualized program for Home Evaluation Need in caregiver upon discharge - to improve, our physical therapists will perform initial evaluati on of pt's status upon admission and devise an individualized program for Caregiver Training New precaution - to improve, our physical therapists will perform initial evaluation of pt's status upon admission and devise an individualized program for Patient precaution education Edema - to improve, our physical therapists will perform initial evaluation of pt's status upon admi ssion and devise an individualized program for Elevation Training, and Lymphedema Therapy Poor balance - to improve, our physical therapists will perform initial evaluation of pt's status up on admission and devise an individualized program for Balance Training Poor endurance - to improve, our physical therapists will perform initial evaluation of pt's status upon admission and devise an individualized program for Endurance Training Weakness - to improve, our physical therapists will perform initial evaluation of pt's status upon a dmission and devise an individualized program for Aquatic Therapy, Neuromuscular Reeducation, and Str engthening Achieving independence - to improve, our physical therapists will perform initial evaluation of pt's status upon admission and devise an individualized program for Community Reintegration Activities - Occupational Therapy ADL deficits - to improve, our occupation therapists will perform initial evaluation of pt's status upon admission and devise an individualized program for Bathing, Bed mobility, Community Reintegratio n, Cooking, Dressing, Eating, Fine Motor Skills, Grooming, Homemaking, Kitchen Mobility, Laundry, Pat ient Education, Safety Awareness, Splinting - Positioning, Transfers(Toilet, Tub, Shower), and Wheel Chair Management Need for direct care supervisor - to improve, our occupation therapists will perform initial evaluation of pt's status upon admission and devise an individualized program for Caregiver Training Weakness - to improve, our occupation therapists will perform initial evaluation of pt's status upon admission and devise an individualized program for Aquatic Therapy, Balance, Endurance, UE ROM, and UE strengthening - Diet Type Continue Regular - Diet - Liquid Texture Continue Regular - Tube Feed Continue N/A - Lab Results blood Sugar Check ACHS - Bladder care per protocol - Weight Bearing Precaution WBAT right LE - Skin care per protocol - Diet - Solid Texture Continue Regular - Shower allowing shower for Dementia, TBI, Stroke, or others FUNCTIONAL STATUS: UPDATED AT WEEKLY TEAM CONFERENCE - Bladder Same accident frequency: 7-Ind - No accidents in the past 7 days - Bowel Same accident frequency: 7-Ind - No accidents in the past 7 days - Walking Same score based on distance walked: 0(N/A) - Wheelchair Same score based on distance traveled: 0(N/A) FUNCTIONAL STATUS: - Self-Care A. Eating sup B. Grooming sup C. Bathing Erinn D. Dressing - Upper modA E. Dressing - Lower modA F. Toileting Erinn - Sphincter Control G: Bladder control Ind H: Bowel control Ind - Transfers Control I. Bed/Chair/Wheelchair Erinn J. Toilet Erinn K. Tub/Shower ADNO - Locomotion L. Walk/Wheelchair (C) modA L. Walk/Wheelchair (W) modA M. Stairs ADNO - Communication N. Comprehension (B) Harlan O. Expression (B) Harlan - Social Cognition P. Social Interaction Harlan Q. Problem Solving Harlan R. Memory Harlan - Endurance Fair - Balance Fair - Safety Awareness Fair CURRENT FUNC. DEFICITS: Balance, Self-Care, Locomotion, Endurance, Safety Awareness, and Transfers Control SIGNATURE PANEL: (CDT)
[2019-02-08] MEDS: TAMSULOSIN 0.4 MG PO SCH (21:02)
[2019-02-08] MEDS: ENOXAPARIN 30 MG/0.3 ML SQ SCH (21:02)
[2019-02-08] MEDS: SIMVASTATIN 80 MG PO SCH (21:02)
--- NOTE | 2019-02-09 02:20 | PN ---
Date of Progress Note: 02/08/2019 Chief Complaint: Chronic kidney disease, fluid overload, anasarca. The patient has severe deconditioning. He is undergoing rehab. The patient was admitted after he wa s evaluated for CVA. The patient has chronic kidney disease. Renal function is stable. The patient is on Bumex for leg edema. Review of Systems: Denies fever, chills. Denies PND, orthopnea. Physical Examination: Lungs: Few crackles at bases. Heart: S1, S2. Abdomen: Soft, benign. Extremities: Slight edema in both ankles. Impression And Plan: 1.Chronic kidney disease. Renal function at baseline. Edema secondary to congestive heart failure. There is history of cardiorenal syndrome. Continue Bumex. Monitor electrolytes. 2.Hypertension. Blood pressure is controlled and optimal. 3.Cerebrovascular accident. Continue physical therapy. PAULETTE/AGUILA Voice ID: [id number] Report ID: [id number]
--- NOTE | 2019-02-09 02:35 | FAST ---
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 Sabino Brewster M.D. ADMISSION DIAGNOSIS: - Stroke 01 - Right Body (Left Brain) (01.2) Acute left inferior cerebellar infarct. EATING: Activity did not occur on this shift EATING - SCORE: 0-UNK GROOMING: Oral care Wash, rinse, and dry face Wash, rinse, and dry hands GROOMING - STEP 1: Does the patient require the assistance of a person or device, or need extra time when grooming? Yes. GROOMING - STEP 2: Does the patient require the assistance of a helper? Yes. GROOMING - STEP 3: How much assistance does the patient require from the helper? Only prior equipment preparation/set up from the helper GROOMING - SCORE: 5-SUP BATHING: Activity did not occur on this shift BATHING - SCORE: 0-UNK DRESSING - UPPER BODY: Patient is not dressing in public clothing ARTICLES SCORE Total number of steps: 0 DRESSING - UPPER BODY - SCORE: 0-UNK DRESSING - LOWER BODY: Patient is not dressing in public clothing ARTICLES SCORE Total number of steps: 0 DRESSING - LOWER BODY - SCORE: 0-UNK TOILETING: TOILETING - STEP 1: Does the patient require the assistance of a person or device, or need extra time with toileting? Yes . TOILETING - STEP 2: Does the patient require the assistance of a helper? Yes. TOILETING - STEP 3: How much assistance does the patient require from the helper? Only supervision TOILETING - SCORE: 5-SUP BLADDER MANAGEMENT: BLADDER MANAGEMENT - STEP 1: Does the patient control the bladder completely and intentionally without equipment or devices or med ications, and is always continent? No. BLADDER MANAGEMENT - STEP 2: Does the patient require the assistance of a helper? Yes. BLADDER MANAGEMENT - STEP 3: How much assistance does the patient require from the helper? Only set-up of equipment - such as plac ing it within reach of the patient or emptying a device - to maintain either satisfactory voiding pat tern or managing an external device, such as an absorbent pad, ileal device, or catheter BLADDER MANAGEMENT - SCORE: 5-SUP BOWEL MANAGEMENT: Activity did not occur on this shift BOWEL MANAGEMENT - SCORE: 7-IND TRANSFERS: BED, CHAIR, WHEELCHAIR: TRANSFERS: BED, CHAIR, WHEELCHAIR - STEP 1: Does the patient require assistance of a person or device, or need extra time with bed, chair, or whe elchair transfers? Yes. TRANSFERS: BED, CHAIR, WHEELCHAIR - STEP 2: Does the patient require the assistance of a helper? Yes. TRANSFERS: BED, CHAIR, WHEELCHAIR - STEP 3: How much assistance does the patient require from the helper? Lifting of the legs TRANSFERS: BED, CHAIR, WHEELCHAIR - STEP 4: How many legs does the patient require the helper to lift? both legs TRANSFERS: BED, CHAIR, WHEELCHAIR - SCORE: 3-MOD TRANSFERS: TOILET: Activity did not occur on this shift TRANSFERS: TOILET - SCORE: 0-UNK TRANSFERS: SHOWER: Activity did not occur on this shift TRANSFERS: SHOWER - SCORE: 0-UNK TRANSFERS: TUB: Activity did not occur on this shift TRANSFERS: TUB - SCORE: 0-UNK LOCOMOTION: WALK: Activity did not occur on this shift LOCOMOTION: WALK - SCORE: 0-UNK LOCOMOTION: WHEELCHAIR: Activity did not occur on this shift LOCOMOTION: WHEELCHAIR - SCORE: 0-UNK COMPREHENSION: COMPREHENSION: TYPE: Both COMPREHENSION - STEP 1: Does the patient require help from a person or device, or need extra time to understand complex and a bstract ideas (such as current events, finances, discharge planning, medical issues, relationships, e tc)? No. COMPREHENSION - STEP 2: Does the patient need extra time, require an assistive device (such as glasses for visual comprehensi on or a hearing aid for auditory comprehension) or does s/he have mild difficulty understanding compl ex and abstract information? Yes. COMPREHENSION - SCORE: 6-SINGH EXPRESSION EXPRESSION: TYPE: Both EXPRESSION - STEP 1: Does the patient require help from a person or device, or need extra time expressing complex and abst ract ideas (such as current events, finances, discharge planning, medical issues, relationships, etc) ? No. EXPRESSION - STEP 2: Does the patient need extra time, require an assistive device (such as augmentive communication syste m or a communication board), OR does s/he have mild difficulty expressing complex and abstract ideas (including mild dysarthria or mild word-find problems)? Yes. EXPRESSION - SCORE: 6-SINGH SOCIAL INTERACTION: SOCIAL INTERACTION - STEP 1: Does the patient require a helper to interact with others in social and therapeutic situations? No. SOCIAL INTERACTION - STEP 2: Does the patient need extra time in social situations, OR does s/he interact with staff, other patien ts, and family members ONLY in structured environments, OR does s/he require medication for social in teraction? Yes, patient needs extra time SOCIAL INTERACTION - SCORE: 6-SINGH PROBLEM SOLVING: PROBLEM SOLVING - STEP 1: Does the patient need help from a person or device, or need extra time to solve complex problems such as managing a checking account or confronting interpersonal problems? No. PROBLEM SOLVING - STEP 2: Does the patient require extra time to make decisions or solve problems, OR does s/he have slight dif ficulty reading, initiating, or self-correcting in unfamiliar situations? Yes, patient needs extra ti me. PROBLEM SOLVING - SCORE: 6-SINGH MEMORY: MEMORY - STEP 1: Does the patient need help from a person or device, or need extra time to remember frequently encount ered people, daily routines, and executing requests? No. MEMORY - STEP 2: Does the patient have slight difficulty recognizing frequently encountered people, daily routines, or executing requests without the need for repetition or using self-initiated or environmental cues to remember? Yes. MEMORY - SCORE: 6-SINGH
[2019-02-09] MEDS: METOPROLOL SUCCINATE 50 MG PO SCH ×2 (05:16→20:21)
[2019-02-09] MEDS: SYNTHROID 88 MCG PO SCH (06:23)
[2019-02-09] MEDS: INSULIN -REGULAR HUMAN 50 UNIT/0.5 ML ML SQ SCH ×3 (08:20→17:02)
[2019-02-09] MEDS: INSULIN GLARGINE 100 UNITS/ML SQ SCH (08:22)
[2019-02-09] MEDS: CLOPIDOGREL 75 MG TABLET PO SCH (08:24)
[2019-02-09] MEDS: MULTIVITAMIN TAB PO SCH (08:24)
[2019-02-09] MEDS: FOLIC ACID 1 MG TABLET PO SCH (08:24)
[2019-02-09] MEDS: ISOSORBIDE MONONITRATE 60 MG PO SCH (08:25)
[2019-02-09] MEDS: BUMETANIDE 2 MG PO SCH (08:26)
[2019-02-09] MEDS: ASPIRIN 81 MG PO SCH (08:26)
--- NOTE | 2019-02-09 08:45 | FAST ---
ENCOUNTER DATE AND TIME: 02/08/2019 08:00 (CDT) NAME ALISSON HERNANDEZ DATE OF : 1930 DATE OF ADMISSION: 01/26/2019 13:45 (JEWELRY ENAMELER) PHONE: AGE: 88 N# [id number] GENDER: Male ENCOUNTER PHYSICIAN: Dr. Sabino Brewster M.D. ADMISSION DIAGNOSIS: - Stroke 01 - Right Body (Left Brain) (01.2) Acute left inferior cerebellar infarct. EATING: EATING - STEP 1: Does the patient require the assistance of a person or device, or need extra time when eating? No. EATING - SCORE: 7-IND GROOMING: Comb/brush hair Oral care Wash, rinse, and dry face Wash, rinse, and dry hands GROOMING - STEP 1: Does the patient require the assistance of a person or device, or need extra time when grooming? No. GROOMING - SCORE: 7-IND BATHING: Abdomen Buttocks Chest Left arm Left lower leg and foot Left upper leg Perineal area Right arm Right lower leg and foot Right upper leg BATHING - STEP 1: Does the patient require the assistance of a person or device, or need extra time when bathing? Yes. BATHING - STEP 2: Does the patient require the assistance of a helper? Yes. BATHING - STEP 3: How much assistance does the patient require from the helper? Only supervision, cuing, coaxing, instr uctions, encouragement BATHING - SCORE: 5-SUP DRESSING - UPPER BODY: T-shirt/pullover shirt (four steps) ARTICLES SCORE Total number of steps: 4 DRESSING - UPPER BODY - STEP 1: Does the patient require help from a person or device, or need extra time when dressing above the [address]? No. DRESSING - UPPER BODY - SCORE: 7-IND DRESSING - LOWER BODY: Elastic waist pants (three steps) Slip-on shoe - Left foot (one step) Slip-on shoe - Right foot (one step) Sock - Left foot (one step) Sock - Right foot (one step) Underwear (three steps) ARTICLES SCORE Total number of steps: 10 DRESSING - LOWER BODY - STEP 1: Does the patient require help from a person or device, or need extra time when dressing below the [address]? Yes. DRESSING - LOWER BODY - STEP 2: Does the patient require the assistance of a helper? Yes. DRESSING - LOWER BODY - STEP 3: Does the helper touch the patient while dressing? No. DRESSING - LOWER BODY - SCORE: 5-SUP TOILETING: TOILETING - STEP 1: Does the patient require the assistance of a person or device, or need extra time with toileting? Yes . TOILETING - STEP 2: Does the patient require the assistance of a helper? Yes. TOILETING - STEP 3: How much assistance does the patient require from the helper? Hands-on assistance from the helper TOILETING - STEP 4: Of the 3 tasks: 1) Adjusting clothing prior to use, 2) Cleansing of perineal area, 3) Adjusting clot gregor after use; How many tasks does the patient perform WITHOUT assistance of the helper? Three tasks with steadying assistance from the helper TOILETING - SCORE: 4-MIN BLADDER MANAGEMENT: Activity did not occur on this shift BLADDER MANAGEMENT - SCORE: 7-IND BOWEL MANAGEMENT: Activity did not occur on this shift BOWEL MANAGEMENT - SCORE: 7-IND TRANSFERS: BED, CHAIR, WHEELCHAIR: Activity did not occur on this shift TRANSFERS: BED, CHAIR, WHEELCHAIR - SCORE: 0-UNK TRANSFERS: TOILET: TRANSFERS: TOILET - STEP 1: Does the patient require the assistance of a person or device, or need extra time with toilet transfe rs? Yes. TRANSFERS: TOILET - STEP 2: Does the patient require the assistance of a helper? Yes. TRANSFERS: TOILET - STEP 3: How much assistance does the patient require from the helper? Patient performs half or more of the tr ansferring tasks TRANSFERS: TOILET - STEP 4: Does the patient need only incidental help such as contact guard or steadying during toilet transfer? Yes. TRANSFERS: TOILET - SCORE: 4-MIN TRANSFERS: SHOWER: Activity did not occur on this shift TRANSFERS: SHOWER - SCORE: 0-UNK TRANSFERS: TUB: TRANSFERS: TUB - STEP 1: Does the patient require the assistance of a person or device, or need extra time with tub transfers? Yes. TRANSFERS: TUB - STEP 2: Does the patient require the assistance of a helper? Yes. TRANSFERS: TUB - STEP 3: How much assistance does the patient require from the helper? Incidental help such as contact guardin g or steadying, OR help to lift one leg into the tub TRANSFERS: TUB - SCORE: 4-MIN LOCOMOTION: WALK: Activity did not occur on this shift LOCOMOTION: WALK - SCORE: 0-UNK LOCOMOTION: WHEELCHAIR: Activity did not occur on this shift LOCOMOTION: WHEELCHAIR - SCORE: 0-UNK LOCOMOTION: STAIRS: Activity did not occur on this shift LOCOMOTION: STAIRS - SCORE: 0-UNK COMPREHENSION: COMPREHENSION: TYPE: Both COMPREHENSION - STEP 1: Does the patient require help from a person or device, or need extra time to understand complex and a bstract ideas (such as current events, finances, discharge planning, medical issues, relationships, e tc)? No. COMPREHENSION - STEP 2: Does the patient need extra time, require an assistive device (such as glasses for visual comprehensi on or a hearing aid for auditory comprehension) or does s/he have mild difficulty understanding compl ex and abstract information? Yes. COMPREHENSION - SCORE: 6-SINGH EXPRESSION EXPRESSION: TYPE: Both EXPRESSION - STEP 1: Does the patient require help from a person or device, or need extra time expressing complex and abst ract ideas (such as current events, finances, discharge planning, medical issues, relationships, etc) ? No. EXPRESSION - STEP 2: Does the patient need extra time, require an assistive device (such as augmentive communication syste m or a communication board), OR does s/he have mild difficulty expressing complex and abstract ideas (including mild dysarthria or mild word-find problems)? No. EXPRESSION - SCORE: 7-IND SOCIAL INTERACTION: SOCIAL INTERACTION - STEP 1: Does the patient require a helper to interact with others in social and therapeutic situations? No. SOCIAL INTERACTION - STEP 2: Does the patient need extra time in social situations, OR does s/he interact with staff, other patien ts, and family members ONLY in structured environments, OR does s/he require medication for social in teraction? No. SOCIAL INTERACTION - SCORE: 7-IND PROBLEM SOLVING: PROBLEM SOLVING - STEP 1: Does the patient need help from a person or device, or need extra time to solve complex problems such as managing a checking account or confronting interpersonal problems? No. PROBLEM SOLVING - STEP 2: Does the patient require extra time to make decisions or solve problems, OR does s/he have slight dif ficulty reading, initiating, or self-correcting in unfamiliar situations? Yes, patient needs extra ti me. PROBLEM SOLVING - SCORE: 6-SINGH MEMORY: MEMORY - STEP 1: Does the patient need help from a person or device, or need extra time to remember frequently encount ered people, daily routines, and executing requests? No. MEMORY - STEP 2: Does the patient have slight difficulty recognizing frequently encountered people, daily routines, or executing requests without the need for repetition or using self-initiated or environmental cues to remember? Yes. MEMORY - SCORE: 6-SINGH SIGNATURE PANEL: The following modified sections: Eating - Score, Grooming - Score, Bathing - Score, Dressing - Upper Body - Score, Dressing - Lower Body - Score, Toileting - Score, Transfers: Bed, Chair, Wheelchair - S core, Transfers: Toilet - Score, Transfers: Shower - Score, Transfers: Tub - Score, Comprehension - S core, Expression - Score, Social Interaction - Score, Problem Solving - Score, Memory - Score were [e lectronically] signed by Mita Triplett OT on FriFeb 09 2019 08:45:07 T-0500 ([facility])
[2019-02-09] MEDS: SODIUM CHLORIDE 0.9% 10ML INJ IV SCH ×2 (09:20→20:00)
--- NOTE | 2019-02-09 09:42 | RAD REPORT ---
EXAM DESCRIPTION: RAD - Chest Single View - 02/09/2019 9:01 am CLINICAL HISTORY: Cough and congestion COMPARISON: January 20 TECHNIQUE: AP portable chest image was obtained 0856 hours . FINDINGS: No pneumonia or other focal lung parenchymal process seen. Patient has chronic interstitia l changes that match the comparison. No failure or volume overload. Heart and vasculature are normal. No measurable pleural effusion and no pneumothorax. No acute bony abnormality seen. No acute aortic findings suspected. IMPRESSION: No pneumonia or other acute cardiopulmonary finding seen. 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
[2019-02-09 11:33] LABS: Absolute Lymphocytes (CBC) 1.4 K/uL (0.7-4.9); Absolute Monocytes 0.8 K/uL (0.1-1.3); Absolute Neutrophil 6.1 K/uL (1.8-8.0); Basophils % 0.3 % (0-1.3); Eosinophils % 2.7 % (0-4.4); Hematocrit 36.4 % (39.6-49.0); Lymphocytes % 16.7 % (15.3-44.8); MPV 11.9 fL (7.6-11.3); Monocytes % 9.1 % (3.3-12.3); RBC Red Blood Cell Count 3.98 M/uL (4.33-5.43)
[2019-02-09 11:44] LABS: Albumin 3.1 g/dL (3.4-5.0); Bilirubin Total 0.4 mg/dL (0.2-1.0); Magnesium 2.3 mg/dL (1.8-2.4); Potassium 4.4 mmol/L (3.5-5.1); Protein, Total 7.1 g/dL (6.4-8.2)
--- NOTE | 2019-02-09 14:41 | PN ---
Date of Progress Note: 02/09/2019 Subjective: The patient was seen this morning for followup. No new complaints or problems reported by the patient except he was coughing up some clear mucus but said at times it was yellowish in color and this started this morning. Denies any vomiting. No abdominal pain. Objective: Vital signs: Reviewed. HEENT: Unremarkable. Lungs: Clear to auscultation. No rhonchi. No rales. Heart: Sounds normal. Abdomen: Soft. Bowel sounds normal. No guarding, rigidity, tenderness, distention. Extremities: No leg edema. Laboratory Data: Fingerstick blood sugar readings reviewed. Blood sugar this morning around 7 a.m. was 368. Upon further questioning to the patient and nursing staff, the patient did have his snack a s suggested last night, but around 5 o'clock this morning night nurse gave him his metoprolol dose wi th a glass of orange juice and the patient did not have low blood sugar problem this morning. She di d not even check the blood sugar, but ended up giving orange juice instead of water for the medicatio n and I did talk to the nurse this morning to make sure not to give orange juice or any such liquid a t any odd time unless the patient has hypoglycemia problem. After this orange juice at 5 a.m., obvio usly his blood sugar from 7 a.m. was elevated so that is explanation for that this morning. Impression: 1.Diabetes mellitus, uncontrolled. 2.Hypertension. 3.Cough. 4.Coronary artery disease. 5.Stroke. Plan: We will go ahead and get a blood work done today. Get a chest x-ray done. Clinically, his dian ng sounds clear. There is no concern at this point. We will continue to monitor him. If he continu es to have this cough problem and chest x-ray does not show any problem, we may have to consider flaco montes a barium swallow test, even though he does not report any trouble swallowing. I will see him sharronbrittany love for followup. AUNG/MODL Voice ID: [id number] Report ID: [id number]
--- NOTE | 2019-02-09 14:57 | FAST ---
ENCOUNTER DATE AND TIME: 02/09/2019 08:00 (CDT) NAME ALISSON HERNANDEZ DATE OF : 1930 DATE OF ADMISSION: 01/26/2019 13:45 (COMPOUNDING ASSISTANT) PHONE: AGE: 88 N# [id number] GENDER: Male ENCOUNTER PHYSICIAN: Dr. Sabino Brewster M.D. ADMISSION DIAGNOSIS: - Stroke 01 - Right Body (Left Brain) (01.2) Acute left inferior cerebellar infarct. EATING: Activity did not occur on this shift EATING - SCORE: 0-UNK GROOMING: Activity did not occur on this shift GROOMING - SCORE: 0-UNK BATHING: Activity did not occur on this shift BATHING - SCORE: 0-UNK DRESSING - UPPER BODY: Activity did not occur on this shift Patient is not dressing in public clothing ARTICLES SCORE Total number of steps: 0 DRESSING - UPPER BODY - SCORE: 0-UNK DRESSING - LOWER BODY: Activity did not occur on this shift Patient is not dressing in public clothing ARTICLES SCORE Total number of steps: 0 DRESSING - LOWER BODY - SCORE: 0-UNK TOILETING: Activity did not occur on this shift TOILETING - SCORE: 0-UNK BLADDER MANAGEMENT: Activity did not occur on this shift BLADDER MANAGEMENT - SCORE: 7-IND BOWEL MANAGEMENT: Activity did not occur on this shift BOWEL MANAGEMENT - SCORE: 7-IND TRANSFERS: BED, CHAIR, WHEELCHAIR: TRANSFERS: BED, CHAIR, WHEELCHAIR - STEP 1: Does the patient require assistance of a person or device, or need extra time with bed, chair, or whe elchair transfers? Yes. TRANSFERS: BED, CHAIR, WHEELCHAIR - STEP 2: Does the patient require the assistance of a helper? Yes. TRANSFERS: BED, CHAIR, WHEELCHAIR - STEP 3: How much assistance does the patient require from the helper? Steadying/guiding assistance TRANSFERS: BED, CHAIR, WHEELCHAIR - SCORE: 4-MIN TRANSFERS: TOILET: Activity did not occur on this shift TRANSFERS: TOILET - SCORE: 0-UNK TRANSFERS: SHOWER: Activity did not occur on this shift TRANSFERS: SHOWER - SCORE: 0-UNK TRANSFERS: TUB: Activity did not occur on this shift TRANSFERS: TUB - SCORE: 0-UNK LOCOMOTION: WALK: LOCOMOTION: WALK - STEP 1: Does the patient need help from a person or device, or need extra time to walk 150 feet? Yes. LOCOMOTION: WALK - STEP 2: How much assistance does the patient require to walk a minimum of 150 feet? Only incidental help such as contact guarding or steadying LOCOMOTION: WALK - SCORE: 4-MIN LOCOMOTION: WHEELCHAIR: LOCOMOTION: WHEELCHAIR - STEP 1: Does the patient need help to go 150 feet in a wheelchair? Yes. LOCOMOTION: WHEELCHAIR - STEP 2: How much assistance does the patient need from the helper? Only supervision, cuing, or coaxing LOCOMOTION: WHEELCHAIR - SCORE: 5-SUP LOCOMOTION: STAIRS: Activity did not occur on this shift LOCOMOTION: STAIRS - SCORE: 0-UNK COMPREHENSION: COMPREHENSION - SCORE: 0-UNK EXPRESSION EXPRESSION - SCORE: 0-UNK SOCIAL INTERACTION: SOCIAL INTERACTION - SCORE: 0-UNK PROBLEM SOLVING: PROBLEM SOLVING - SCORE: 0-UNK MEMORY: MEMORY - SCORE: 0-UNK SIGNATURE PANEL: The following modified sections: Transfers: Bed, Chair, Wheelchair - Score, Transfers: Toilet - Score , Locomotion: Walk - Score, Locomotion: Wheelchair - Score, Locomotion: Stairs - Score were [nate [email or web address]] signed by Su Roberts PTA on FriFeb 09 2019 14:56:50 GMT-0500 ([facility] Day[facility] Time)
[2019-02-09] MEDS: BUMETANIDE PO SCH (16:59)
[2019-02-09] MEDS: TAMSULOSIN 0.4 MG PO SCH (20:22)
[2019-02-09] MEDS: ENOXAPARIN 30 MG/0.3 ML SQ SCH (20:22)
[2019-02-09] MEDS: SIMVASTATIN 80 MG PO SCH (20:22)
--- NOTE | 2019-02-10 01:51 | FAST ---
SHIFT START DATE/TIME: 02/09/2019 19:00 (CDT) SHIFT END DATE/TIME: 02/10/2019 07:00 (CDT) NAME ALISSON HERNANDEZ DATE OF : 1930 DATE OF ADMISSION: 01/26/2019 13:45 (JUNIOR ARCHITECT) PHONE: AGE: 88 SSN# [id number] GENDER: Male ENCOUNTER PHYSICIAN: Dr. Sabino Brewster M.D. ADMISSION DIAGNOSIS: - Stroke 01 - Right Body (Left Brain) (01.2) Acute left inferior cerebellar infarct. EATING: Activity did not occur on this shift EATING - SCORE: 0-UNK GROOMING: Activity did not occur on this shift GROOMING - SCORE: 0-UNK BATHING: Activity did not occur on this shift BATHING - SCORE: 0-UNK DRESSING - UPPER BODY: Patient is not dressing in public clothing ARTICLES SCORE Total number of steps: 0 DRESSING - UPPER BODY - SCORE: 0-UNK DRESSING - LOWER BODY: Patient is not dressing in public clothing ARTICLES SCORE Total number of steps: 0 DRESSING - LOWER BODY - SCORE: 0-UNK TOILETING: TOILETING - STEP 1: Does the patient require the assistance of a person or device, or need extra time with toileting? Yes . TOILETING - STEP 2: Does the patient require the assistance of a helper? Yes. TOILETING - STEP 3: How much assistance does the patient require from the helper? Hands-on assistance from the helper TOILETING - STEP 4: Of the 3 tasks: 1) Adjusting clothing prior to use, 2) Cleansing of perineal area, 3) Adjusting clot gregor after use; How many tasks does the patient perform WITHOUT assistance of the helper? One task TOILETING - SCORE: 2-MAX BLADDER MANAGEMENT: BLADDER MANAGEMENT - STEP 1: Does the patient control the bladder completely and intentionally without equipment or devices or med ications, and is always continent? No. BLADDER MANAGEMENT - STEP 2: Does the patient require the assistance of a helper? Yes. BLADDER MANAGEMENT - STEP 3: How much assistance does the patient require from the helper? Patient requires contact assistance fro m the helper BLADDER MANAGEMENT - STEP 4: How much contact assistance does the patient require from the helper? Patient requires moderate shantell tance, and performs 50% to 75% of bladder management tasks - Lyons positions AND holds urinal or bed luna BLADDER MANAGEMENT - SCORE: 3-MOD BOWEL MANAGEMENT: Activity did not occur on this shift BOWEL MANAGEMENT - SCORE: 7-IND TRANSFERS: BED, CHAIR, WHEELCHAIR: TRANSFERS: BED, CHAIR, WHEELCHAIR - STEP 1: Does the patient require assistance of a person or device, or need extra time with bed, chair, or whe elchair transfers? Yes. TRANSFERS: BED, CHAIR, WHEELCHAIR - STEP 2: Does the patient require the assistance of a helper? Yes. TRANSFERS: BED, CHAIR, WHEELCHAIR - STEP 3: How much assistance does the patient require from the helper? Lifting of the legs TRANSFERS: BED, CHAIR, WHEELCHAIR - STEP 4: How many legs does the patient require the helper to lift? both legs TRANSFERS: BED, CHAIR, WHEELCHAIR - SCORE: 3-MOD TRANSFERS: TOILET: TRANSFERS: TOILET - STEP 1: Does the patient require the assistance of a person or device, or need extra time with toilet transfe rs? Yes. TRANSFERS: TOILET - STEP 2: Does the patient require the assistance of a helper? Yes. TRANSFERS: TOILET - STEP 3: How much assistance does the patient require from the helper? Patient performs half or more of the tr ansferring tasks TRANSFERS: TOILET - STEP 4: Does the patient need only incidental help such as contact guard or steadying during toilet transfer? Yes. TRANSFERS: TOILET - SCORE: 4-MIN TRANSFERS: SHOWER: Activity did not occur on this shift TRANSFERS: SHOWER - SCORE: 0-UNK TRANSFERS: TUB: Activity did not occur on this shift TRANSFERS: TUB - SCORE: 0-UNK LOCOMOTION: WALK: Activity did not occur on this shift LOCOMOTION: WALK - SCORE: 0-UNK LOCOMOTION: WHEELCHAIR: Activity did not occur on this shift LOCOMOTION: WHEELCHAIR - SCORE: 0-UNK COMPREHENSION: COMPREHENSION: TYPE: Both COMPREHENSION - STEP 1: Does the patient require help from a person or device, or need extra time to understand complex and a bstract ideas (such as current events, finances, discharge planning, medical issues, relationships, e tc)? No. COMPREHENSION - STEP 2: Does the patient need extra time, require an assistive device (such as glasses for visual comprehensi on or a hearing aid for auditory comprehension) or does s/he have mild difficulty understanding compl ex and abstract information? Yes. COMPREHENSION - SCORE: 6-SINGH EXPRESSION EXPRESSION: TYPE: Both EXPRESSION - STEP 1: Does the patient require help from a person or device, or need extra time expressing complex and abst ract ideas (such as current events, finances, discharge planning, medical issues, relationships, etc) ? No. EXPRESSION - STEP 2: Does the patient need extra time, require an assistive device (such as augmentive communication syste m or a communication board), OR does s/he have mild difficulty expressing complex and abstract ideas (including mild dysarthria or mild word-find problems)? No. EXPRESSION - SCORE: 7-IND SOCIAL INTERACTION: SOCIAL INTERACTION - STEP 1: Does the patient require a helper to interact with others in social and therapeutic situations? No. SOCIAL INTERACTION - STEP 2: Does the patient need extra time in social situations, OR does s/he interact with staff, other patien ts, and family members ONLY in structured environments, OR does s/he require medication for social in teraction? No. SOCIAL INTERACTION - SCORE: 7-IND PROBLEM SOLVING: Patient requires bed/chair alarms due to attempts to get up unassisted when helper is needed. PROBLEM SOLVING - STEP 1: How often do the bed/chair alarms go off? Occasionally - the alarms go off about 25% or less PROBLEM SOLVING - SCORE: 4-MIN MEMORY: MEMORY - STEP 1: How often do the bed/chair alarms go off? Occasionally - the alarms go off about 25% of the time or l ess MEMORY - SCORE: 4-MIN SIGNATURE PANEL: The following modified sections: Eating - Score, Grooming - Score, Bathing - Score, Dressing - Upper Body - Score, Dressing - Lower Body - Score, Toileting - Score, Bladder Management - Score, Bowel Man agement - Score, Transfers: Bed, Chair, Wheelchair - Score, Transfers: Toilet - Score, Transfers: Iris wer - Score, Transfers: Tub - Score, Locomotion: Walk - Score, Comprehension - Score, Expression - Sc ore, Social Interaction - Score, Problem Solving - Score, Memory - Score, Locomotion: Wheelchair - Sc ore were [electronically] signed by Ileana Cleary CNA on FriFeb 10 2019 01:50:14 T-0500 ([facility] Time)
[2019-02-10] MEDS: SYNTHROID 88 MCG PO SCH (07:04)
[2019-02-10] MEDS: ISOSORBIDE MONONITRATE 60 MG PO SCH (08:00)
[2019-02-10] MEDS: BUMETANIDE 2 MG PO SCH (08:00)
[2019-02-10] MEDS: METOPROLOL SUCCINATE 50 MG PO SCH ×2 (08:00→20:24)
[2019-02-10] MEDS: INSULIN GLARGINE 100 UNITS/ML SQ SCH (08:04)
[2019-02-10] MEDS: INSULIN -REGULAR HUMAN 50 UNIT/0.5 ML ML SQ SCH ×3 (08:06→16:58)
[2019-02-10] MEDS: ASPIRIN 81 MG PO SCH (08:09)
[2019-02-10] MEDS: SODIUM CHLORIDE 0.9% 10ML INJ IV SCH ×2 (08:10→20:24)
[2019-02-10] MEDS: CLOPIDOGREL 75 MG TABLET PO SCH (08:14)
[2019-02-10] MEDS: FOLIC ACID 1 MG TABLET PO SCH (08:14)
[2019-02-10] MEDS: MULTIVITAMIN TAB PO SCH (08:14)
[2019-02-10] MEDS ORDERED: D50W 25 GM/50 ML SYRINGE IV PRN ×2 (13:04→14:43)
[2019-02-10] MEDS ORDERED: GLUCAGON 1 MG/VIAL IM PRN ×2 (13:04→14:43)
[2019-02-10] MEDS ORDERED: INSULIN -REGULAR HUMAN 50 UNIT/0.5 ML ML IV ONE ×2 (13:05→14:47)
--- NOTE | 2019-02-10 13:55 | PN ---
Date of Progress Note: 02/10/2019 Subjective: The patient was seen this morning. He was sitting in wheelchair in dining room. No com plaints reported. Fingerstick blood sugar readings reviewed. He did not have any hypoglycemia in la st 24 hours. Blood sugar this morning before breakfast was 317 or so. He did not receive any orange juice early this morning like he had received yesterday. He had some cough yesterday, which has res olved completely and no cough or nausea. No chest pain. No shortness of breath. No trouble swallow ing. Objective: Vital Signs: Reviewed. HEENT: Unremarkable. Lungs: Clear to auscultation. Heart: Sounds normal. Abdomen: Soft. Bowel sounds normal. No guarding, rigidity, tenderness, or distention. Extremities: No leg edema. Impression: 1.Stroke. 2.Coronary artery disease. 3.Hypertension. 4.Type 2 diabetes mellitus, uncontrolled. Plan: We will continue current diabetes management with current insulin including Lantus and sliding scale. I will see how his blood sugar is today and depending on that we will decide if we need to m edgar either adjustment on insulin or adjustment on his diet. Physical therapy under guidance of Dr. Garrett trevino will be continued. I will see him tomorrow for followup. AUNG/MODL Voice ID: [id number] Report ID: [id number]
--- NOTE | 2019-02-10 15:14 | FAST ---
SHIFT START DATE/TIME: 02/10/2019 07:00 (CDT) SHIFT END DATE/TIME: 02/10/2019 19:00 (CDT) NAME ALISSON HERNANDEZ DATE OF : 1930 DATE OF ADMISSION: 01/26/2019 13:45 (BUSINESS SERVICES COORDINATOR) PHONE: AGE: 88 SSN# [id number] GENDER: Male ENCOUNTER PHYSICIAN: Dr. Sabino Brewster M.D. ADMISSION DIAGNOSIS: - Stroke 01 - Right Body (Left Brain) (01.2) Acute left inferior cerebellar infarct. EATING: EATING - STEP 1: Does the patient require the assistance of a person or device, or need extra time when eating? Yes. EATING - STEP 2: Does the patient require the assistance of a helper? No, patient only requires an assistive device, O R s/he takes more than reasonable time to eat, OR there is a safety concern, OR s/he requires modifie d food consistency EATING - SCORE: 6-SINGH GROOMING: Comb/brush hair Oral care GROOMING - STEP 1: Does the patient require the assistance of a person or device, or need extra time when grooming? Yes. GROOMING - STEP 2: Does the patient require the assistance of a helper? Yes. GROOMING - STEP 3: How much assistance does the patient require from the helper? Only prior equipment preparation/set up from the helper GROOMING - SCORE: 5-SUP BATHING: Activity did not occur on this shift BATHING - SCORE: 0-UNK DRESSING - UPPER BODY: Activity did not occur on this shift ARTICLES SCORE Total number of steps: 0 DRESSING - UPPER BODY - SCORE: 0-UNK DRESSING - LOWER BODY: Activity did not occur on this shift ARTICLES SCORE Total number of steps: 0 DRESSING - LOWER BODY - SCORE: 0-UNK TOILETING: TOILETING - STEP 1: Does the patient require the assistance of a person or device, or need extra time with toileting? Yes . TOILETING - STEP 2: Does the patient require the assistance of a helper? Yes. TOILETING - STEP 3: How much assistance does the patient require from the helper? Hands-on assistance from the helper TOILETING - STEP 4: Of the 3 tasks: 1) Adjusting clothing prior to use, 2) Cleansing of perineal area, 3) Adjusting clot gregor after use; How many tasks does the patient perform WITHOUT assistance of the helper? Two tasks TOILETING - SCORE: 3-MOD BLADDER MANAGEMENT: BLADDER MANAGEMENT - STEP 1: Does the patient control the bladder completely and intentionally without equipment or devices or med ications, and is always continent? No. BLADDER MANAGEMENT - STEP 2: Does the patient require the assistance of a helper? No, patient requires and independently uses an a ssistive device, such as a urinal, bedpan, bedside commode, catheter, absorbent pad, or collecting de vice BLADDER MANAGEMENT - SCORE: 6-SINGH BOWEL MANAGEMENT: Activity did not occur on this shift BOWEL MANAGEMENT - SCORE: 7-IND TRANSFERS: BED, CHAIR, WHEELCHAIR: TRANSFERS: BED, CHAIR, WHEELCHAIR - STEP 1: Does the patient require assistance of a person or device, or need extra time with bed, chair, or whe elchair transfers? Yes. TRANSFERS: BED, CHAIR, WHEELCHAIR - STEP 2: Does the patient require the assistance of a helper? Yes. TRANSFERS: BED, CHAIR, WHEELCHAIR - STEP 3: How much assistance does the patient require from the helper? Steadying/guiding assistance TRANSFERS: BED, CHAIR, WHEELCHAIR - SCORE: 4-MIN TRANSFERS: TOILET: TRANSFERS: TOILET - STEP 1: Does the patient require the assistance of a person or device, or need extra time with toilet transfe rs? Yes. TRANSFERS: TOILET - STEP 2: Does the patient require the assistance of a helper? Yes. TRANSFERS: TOILET - STEP 3: How much assistance does the patient require from the helper? Patient performs half or more of the tr ansferring tasks TRANSFERS: TOILET - STEP 4: Does the patient need only incidental help such as contact guard or steadying during toilet transfer? No. Patient needs more than incidental help TRANSFERS: TOILET - SCORE: 3-MOD TRANSFERS: SHOWER: Activity did not occur on this shift TRANSFERS: SHOWER - SCORE: 0-UNK TRANSFERS: TUB: Activity did not occur on this shift TRANSFERS: TUB - SCORE: 0-UNK LOCOMOTION: WALK: Activity did not occur on this shift LOCOMOTION: WALK - SCORE: 0-UNK LOCOMOTION: WHEELCHAIR: Activity did not occur on this shift LOCOMOTION: WHEELCHAIR - SCORE: 0-UNK COMPREHENSION: COMPREHENSION: TYPE: Both COMPREHENSION - STEP 1: Does the patient require help from a person or device, or need extra time to understand complex and a bstract ideas (such as current events, finances, discharge planning, medical issues, relationships, e tc)? No. COMPREHENSION - STEP 2: Does the patient need extra time, require an assistive device (such as glasses for visual comprehensi on or a hearing aid for auditory comprehension) or does s/he have mild difficulty understanding compl ex and abstract information? Yes. COMPREHENSION - SCORE: 6-SINGH EXPRESSION EXPRESSION: TYPE: Both EXPRESSION - STEP 1: Does the patient require help from a person or device, or need extra time expressing complex and abst ract ideas (such as current events, finances, discharge planning, medical issues, relationships, etc) ? No. EXPRESSION - STEP 2: Does the patient need extra time, require an assistive device (such as augmentive communication syste m or a communication board), OR does s/he have mild difficulty expressing complex and abstract ideas (including mild dysarthria or mild word-find problems)? Yes. EXPRESSION - SCORE: 6-SINGH SOCIAL INTERACTION: SOCIAL INTERACTION - STEP 1: Does the patient require a helper to interact with others in social and therapeutic situations? No. SOCIAL INTERACTION - STEP 2: Does the patient need extra time in social situations, OR does s/he interact with staff, other patien ts, and family members ONLY in structured environments, OR does s/he require medication for social in teraction? Yes, patient needs extra time SOCIAL INTERACTION - SCORE: 6-SINGH PROBLEM SOLVING: PROBLEM SOLVING - STEP 1: Does the patient need help from a person or device, or need extra time to solve complex problems such as managing a checking account or confronting interpersonal problems? No. PROBLEM SOLVING - STEP 2: Does the patient require extra time to make decisions or solve problems, OR does s/he have slight dif ficulty reading, initiating, or self-correcting in unfamiliar situations? Yes, patient needs extra ti me. PROBLEM SOLVING - SCORE: 6-SINGH MEMORY: MEMORY - STEP 1: Does the patient need help from a person or device, or need extra time to remember frequently encount ered people, daily routines, and executing requests? No. MEMORY - STEP 2: Does the patient have slight difficulty recognizing frequently encountered people, daily routines, or executing requests without the need for repetition or using self-initiated or environmental cues to remember? Yes. MEMORY - SCORE: 6-SINGH SIGNATURE PANEL: The following modified sections: Eating - Score, Grooming - Score, Bathing - Score, Dressing - Upper Body - Score, Dressing - Lower Body - Score, Toileting - Score, Bladder Management - Score, Bowel Man agement - Score, Transfers: Bed, Chair, Wheelchair - Score, Transfers: Toilet - Score, Transfers: Iris wer - Score, Transfers: Tub - Score, Locomotion: Walk - Score, Locomotion: Wheelchair - Score, Compre hension - Score, Expression - Score, Social Interaction - Score, Problem Solving - Score, Memory - Sc ore were [electronically] signed by Barrera Liang on FriFeb 10 2019 15:13:33 GMT-0500 (Central Daylight Time)
[2019-02-10] MEDS: BUMETANIDE PO SCH (16:59)
--- NOTE | 2019-02-10 18:26 | R.PN ---
ENCOUNTER DATE AND TIME: 02/10/2019 18:23 (CDT) NAME ALISSON HERNANDEZ DATE OF : 1930 DATE OF ADMISSION: 01/26/2019 13:45 (CERTIFIED DENTAL ASSISTANT) Acute left inferior cerebellar infarctCHIEF COMPLAINT: Left cerebellar stroke SUBJECTIVE: Pt denied any Shortness of Breath. Pt denied any depression. Wheelchair mobility done with standby assistance for 430'. Ambulated 354' with minimum to moderate assistance using a rolling walker. Blood sugars [address] Puga. Prealbumin 22.9. VITAL SIGNS Temperature: 98.0 F SBP/DBP: 137/60 Pulse: 63 Resp: 16 MEDICATION ALLERGIES: No Known Drug Allergies (NKDA) ENVIRONMENTAL ALLERGIES: None Known - Substance Allergies None Known - Other Allergies None Known NURSING: - Shower allowing shower - Lab Results blood Sugar Check ACHS - Bladder care per protocol - Skin care per protocol PRECAUTIONS: - Weight Bearing Precaution WBAT right LE ACTIVITIES OOB only with supervision THERAPIES: - Occupational Therapy Evaluate and Treat. Visual Perceptual Training. Cognitive Retraining. - Speech Therapy Cognitive Training. Memory Strategies. Speech Intelligibility Training. Expressive Language Skills. R eceptive Language Skills. - Physical Therapy Evaluate and Treat. PHYSICAL EXAM - Gen Alert and awake Lying in bed No apparent distress Oriented to: person, time, and place - Skin No beakdown No abnormalities - Eyes No abnormalities - Neck No abnormalities - CVS RRR - Chest Clear - Abd + bowel sounds - GI Soft Deferred - No abnormalities - Ext No significant edema - MSK 4+/5 weakness in left upper and lower extremities. - Neuro 4/5 strength left upper and lower extremities. - Psych No abnormalities ASSESSMENT: Pt. is a 88 yo Right-handed white male.On 01/21/2019 Pt. presented to [facility] with sudden onset of right-side weakness.[facility]21[facility]2019 [facility] with diagnosis Acute left inferior cerebellar infarct.His impairment category is Stroke 01 - Right Body (Left Brain) (01.2).Pre-morbidly, Pt. was independent/mod-I in Self-Care, Locomotion, Sph incter Control, Transfers Control, Communication, and Social Cognition; and he had good Sphincter Con trol.Currently, he has deficits of Balance, Self-Care, Locomotion, Endurance, Safety Awareness, and T ransfers Control.Pt. is now referred to [facility] for acute in-patient rehabi litation in order to maximize patient's functional independence in activities of daily living, streng th, ROM, and mobility.- Rehab Goal Patient has realistic goal of being discharged at assistance level 6-Harlan to reside at Home with Fam es/Relatives. MDM/PLAN: - Physical Therapy Gait dysfunction - to improve, our physical therapists will perform initial evaluation of pt's statu s upon admission and devise an individualized program for Gait Training, and Wheel Chair mobility Inability to transfer - to improve, our physical therapists will perform initial evaluation of pt's status upon admission and devise an individualized program for Bed mobility Need for home safety evaluation - to improve, our physical therapists will perform initial evaluatio n of pt's status upon admission and devise an individualized program for Home Evaluation Need in caregiver upon discharge - to improve, our physical therapists will perform initial evaluati on of pt's status upon admission and devise an individualized program for Caregiver Training New precaution - to improve, our physical therapists will perform initial evaluation of pt's status upon admission and devise an individualized program for Patient precaution education Edema - to improve, our physical therapists will perform initial evaluation of pt's status upon admi ssion and devise an individualized program for Elevation Training, and Lymphedema Therapy Poor balance - to improve, our physical therapists will perform initial evaluation of pt's status up on admission and devise an individualized program for Balance Training Poor endurance - to improve, our physical therapists will perform initial evaluation of pt's status upon admission and devise an individualized program for Endurance Training Weakness - to improve, our physical therapists will perform initial evaluation of pt's status upon a dmission and devise an individualized program for Aquatic Therapy, Neuromuscular Reeducation, and Str engthening Achieving independence - to improve, our physical therapists will perform initial evaluation of pt's status upon admission and devise an individualized program for Community Reintegration Activities - Occupational Therapy ADL deficits - to improve, our occupation therapists will perform initial evaluation of pt's status upon admission and devise an individualized program for Bathing, Bed mobility, Community Reintegratio n, Cooking, Dressing, Eating, Fine Motor Skills, Grooming, Homemaking, Kitchen Mobility, Laundry, Pat ient Education, Safety Awareness, Splinting - Positioning, Transfers(Toilet, Tub, Shower), and Wheel Chair Management Need for childbirth and infant care teacher - to improve, our occupation therapists will perform initial evaluation of pt's status upon admission and devise an individualized program for Caregiver Training Weakness - to improve, our occupation therapists will perform initial evaluation of pt's status upon admission and devise an individualized program for Aquatic Therapy, Balance, Endurance, UE ROM, and UE strengthening - Diet Type Continue Regular - Diet - Liquid Texture Continue Regular - Tube Feed Continue N/A - Lab Results blood Sugar Check ACHS - Bladder care per protocol - Weight Bearing Precaution WBAT right LE - Skin care per protocol - Diet - Solid Texture Continue Regular - Shower allowing shower for Dementia, TBI, Stroke, or others FUNCTIONAL STATUS: UPDATED AT WEEKLY TEAM CONFERENCE - Bladder Same accident frequency: 7-Ind - No accidents in the past 7 days - Bowel Same accident frequency: 7-Ind - No accidents in the past 7 days - Walking Same score based on distance walked: 0(N/A) - Wheelchair Same score based on distance traveled: 0(N/A) FUNCTIONAL STATUS: - Self-Care A. Eating sup B. Grooming sup C. Bathing Erinn D. Dressing - Upper modA E. Dressing - Lower modA F. Toileting Erinn - Sphincter Control G: Bladder control Ind H: Bowel control Ind - Transfers Control I. Bed/Chair/Wheelchair Erinn J. Toilet Erinn K. Tub/Shower ADNO - Locomotion L. Walk/Wheelchair (C) modA L. Walk/Wheelchair (W) modA M. Stairs ADNO - Communication N. Comprehension (B) Harlan O. Expression (B) Harlan - Social Cognition P. Social Interaction Harlan Q. Problem Solving Harlan R. Memory Harlan - Endurance Fair - Balance Fair - Safety Awareness Fair CURRENT FUNC. DEFICITS: Balance, Self-Care, Locomotion, Endurance, Safety Awareness, and Transfers Control SIGNATURE PANEL: (CDT)
[2019-02-10] MEDS: TAMSULOSIN 0.4 MG PO SCH (20:23)
[2019-02-10] MEDS: SIMVASTATIN 80 MG PO SCH (20:23)
[2019-02-10] MEDS: ENOXAPARIN 30 MG/0.3 ML SQ SCH (20:23)
--- NOTE | 2019-02-11 02:45 | PN ---
Date of Progress Note: 02/10/2019 Subjective: The patient doing well. No nausea. No vomiting. The patient is participating in physi thuan therapy. Physical Examination: Vital Signs: Blood pressure 147/63, pulse of 67, afebrile. Chest: Clear to auscultation. Heart: S1, S2. Regular. Abdomen: Soft, nontender. Extremities: Trace edema. Laboratory Data: H and H 11.7/36.4. Sodium 137, potassium 4.3, bicarb 28, BUN 56, creatinine 2.2, g lucose is still elevated. Calcium 8.9. Current Medications: The patient is on include: 1.Plavix. 2.Lovenox. 3.Insulin. 4.Bumex 1 mg in the morning, 0.5 mg night. 5.Lovenox. 6.Folic acid. 7.Aspirin. 8.Isosorbide. 9.Metoprolol 50 b.i.d. 10.Simvastatin. 11.Flomax. Assessment And Plan: 1.Chronic kidney disease, stage 3B/4, stable on his baseline normal volume. Continue current dose o f Lasix. 2.Hypertension, controlled optimal. Continue current medication. 3.Edema secondary to cardiorenal. Continue Bumex. 4.Cerebrovascular accident. Continue PT/OT. LIA/AGUILA Voice ID: [id number] Report ID: [id number]
--- NOTE | 2019-02-11 03:38 | FAST ---
SHIFT START DATE/TIME: 02/10/2019 19:00 (CDT) SHIFT END DATE/TIME: 02/11/2019 07:00 (CDT) NAME ALISSON HERNANDEZ DATE OF : 1930 DATE OF ADMISSION: 01/26/2019 13:45 (SMALL PARTS ASSEMBLER) PHONE: AGE: 88 SSN# [id number] GENDER: Male ENCOUNTER PHYSICIAN: Dr. Sabino Brewster M.D. ADMISSION DIAGNOSIS: - Stroke 01 - Right Body (Left Brain) (01.2) Acute left inferior cerebellar infarct. EATING: Activity did not occur on this shift EATING - SCORE: 0-UNK GROOMING: Activity did not occur on this shift GROOMING - SCORE: 0-UNK BATHING: Activity did not occur on this shift BATHING - SCORE: 0-UNK DRESSING - UPPER BODY: Patient is not dressing in public clothing ARTICLES SCORE Total number of steps: 0 DRESSING - UPPER BODY - SCORE: 0-UNK DRESSING - LOWER BODY: Patient is not dressing in public clothing ARTICLES SCORE Total number of steps: 0 DRESSING - LOWER BODY - SCORE: 0-UNK TOILETING: TOILETING - STEP 1: Does the patient require the assistance of a person or device, or need extra time with toileting? Yes . TOILETING - STEP 2: Does the patient require the assistance of a helper? Yes. TOILETING - STEP 3: How much assistance does the patient require from the helper? Hands-on assistance from the helper TOILETING - STEP 4: Of the 3 tasks: 1) Adjusting clothing prior to use, 2) Cleansing of perineal area, 3) Adjusting clot gregor after use; How many tasks does the patient perform WITHOUT assistance of the helper? Three tasks with steadying assistance from the helper TOILETING - SCORE: 4-MIN BLADDER MANAGEMENT: BLADDER MANAGEMENT - STEP 1: Does the patient control the bladder completely and intentionally without equipment or devices or med ications, and is always continent? No. BLADDER MANAGEMENT - STEP 2: Does the patient require the assistance of a helper? Yes. BLADDER MANAGEMENT - STEP 3: How much assistance does the patient require from the helper? Patient requires contact assistance fro m the helper BLADDER MANAGEMENT - STEP 4: How much contact assistance does the patient require from the helper? Patient requires moderate shantell tance, and performs 50% to 75% of bladder management tasks - Chipley positions AND holds urinal or bed luna BLADDER MANAGEMENT - SCORE: 3-MOD BOWEL MANAGEMENT: Activity did not occur on this shift BOWEL MANAGEMENT - SCORE: 7-IND TRANSFERS: BED, CHAIR, WHEELCHAIR: TRANSFERS: BED, CHAIR, WHEELCHAIR - STEP 1: Does the patient require assistance of a person or device, or need extra time with bed, chair, or whe elchair transfers? Yes. TRANSFERS: BED, CHAIR, WHEELCHAIR - STEP 2: Does the patient require the assistance of a helper? Yes. TRANSFERS: BED, CHAIR, WHEELCHAIR - STEP 3: How much assistance does the patient require from the helper? Lifting of the legs TRANSFERS: BED, CHAIR, WHEELCHAIR - STEP 4: How many legs does the patient require the helper to lift? both legs TRANSFERS: BED, CHAIR, WHEELCHAIR - SCORE: 3-MOD TRANSFERS: TOILET: TRANSFERS: TOILET - STEP 1: Does the patient require the assistance of a person or device, or need extra time with toilet transfe rs? Yes. TRANSFERS: TOILET - STEP 2: Does the patient require the assistance of a helper? Yes. TRANSFERS: TOILET - STEP 3: How much assistance does the patient require from the helper? Patient performs half or more of the tr ansferring tasks TRANSFERS: TOILET - STEP 4: Does the patient need only incidental help such as contact guard or steadying during toilet transfer? Yes. TRANSFERS: TOILET - SCORE: 4-MIN TRANSFERS: SHOWER: Activity did not occur on this shift TRANSFERS: SHOWER - SCORE: 0-UNK TRANSFERS: TUB: Activity did not occur on this shift TRANSFERS: TUB - SCORE: 0-UNK LOCOMOTION: WALK: Activity did not occur on this shift LOCOMOTION: WALK - SCORE: 0-UNK LOCOMOTION: WHEELCHAIR: Activity did not occur on this shift LOCOMOTION: WHEELCHAIR - SCORE: 0-UNK COMPREHENSION: COMPREHENSION: TYPE: Both COMPREHENSION - STEP 1: Does the patient require help from a person or device, or need extra time to understand complex and a bstract ideas (such as current events, finances, discharge planning, medical issues, relationships, e tc)? No. COMPREHENSION - STEP 2: Does the patient need extra time, require an assistive device (such as glasses for visual comprehensi on or a hearing aid for auditory comprehension) or does s/he have mild difficulty understanding compl ex and abstract information? Yes. COMPREHENSION - SCORE: 6-SINGH EXPRESSION EXPRESSION: TYPE: Both EXPRESSION - STEP 1: Does the patient require help from a person or device, or need extra time expressing complex and abst ract ideas (such as current events, finances, discharge planning, medical issues, relationships, etc) ? No. EXPRESSION - STEP 2: Does the patient need extra time, require an assistive device (such as augmentive communication syste m or a communication board), OR does s/he have mild difficulty expressing complex and abstract ideas (including mild dysarthria or mild word-find problems)? No. EXPRESSION - SCORE: 7-IND SOCIAL INTERACTION: SOCIAL INTERACTION - STEP 1: Does the patient require a helper to interact with others in social and therapeutic situations? No. SOCIAL INTERACTION - STEP 2: Does the patient need extra time in social situations, OR does s/he interact with staff, other patien ts, and family members ONLY in structured environments, OR does s/he require medication for social in teraction? No. SOCIAL INTERACTION - SCORE: 7-IND PROBLEM SOLVING: Patient requires bed/chair alarms due to attempts to get up unassisted when helper is needed. PROBLEM SOLVING - STEP 1: How often do the bed/chair alarms go off? Occasionally - the alarms go off about 25% or less PROBLEM SOLVING - SCORE: 4-MIN MEMORY: MEMORY - STEP 1: How often do the bed/chair alarms go off? Occasionally - the alarms go off about 25% of the time or l ess MEMORY - SCORE: 4-MIN SIGNATURE PANEL: The following modified sections: Eating - Score, Grooming - Score, Bathing - Score, Dressing - Upper Body - Score, Dressing - Lower Body - Score, Toileting - Score, Bladder Management - Score, Bowel Man agement - Score, Transfers: Bed, Chair, Wheelchair - Score, Transfers: Toilet - Score, Transfers: Iris wer - Score, Transfers: Tub - Score, Locomotion: Walk - Score, Locomotion: Wheelchair - Score, Compre hension - Score, Expression - Score, Social Interaction - Score, Problem Solving - Score, Memory - Sc ore were [electronically] signed by Ileana Cleary CNA on FriFeb 11 2019 03:37:35 T-0500 ([facility])
[2019-02-11] MEDS: SYNTHROID 88 MCG PO SCH (06:54)
[2019-02-11 07:13] LABS: Absolute Lymphocytes (CBC) 1.5 K/uL (0.7-4.9); Absolute Monocytes 0.8 K/uL (0.1-1.3); Basophils % 0.8 % (0-1.3); Eosinophils % 5.4 % (0-4.4); Lymphocytes % 22.7 % (15.3-44.8); MPV 10.9 fL (7.6-11.3); Monocytes % 11.9 % (3.3-12.3); RBC Red Blood Cell Count 3.76 M/uL (4.33-5.43)
[2019-02-11 07:18] LABS: Albumin 2.9 g/dL (3.4-5.0); Prealbumin 18.9 mg/dL (20-40)
[2019-02-11] MEDS: INSULIN -REGULAR HUMAN 50 UNIT/0.5 ML ML SQ SCH ×3 (08:19→16:30)
[2019-02-11] MEDS: INSULIN GLARGINE 100 UNITS/ML SQ SCH (08:20)
[2019-02-11] MEDS: MULTIVITAMIN TAB PO SCH (08:23)
[2019-02-11] MEDS: CLOPIDOGREL 75 MG TABLET PO SCH (08:23)
[2019-02-11] MEDS: FOLIC ACID 1 MG TABLET PO SCH (08:23)
[2019-02-11] MEDS: ASPIRIN 81 MG PO SCH (08:23)
[2019-02-11] MEDS: BUMETANIDE 2 MG PO SCH (08:23)
[2019-02-11] MEDS: METOPROLOL SUCCINATE 50 MG PO SCH ×2 (08:25→20:14)
[2019-02-11] MEDS: SODIUM CHLORIDE 0.9% 10ML INJ IV SCH ×2 (08:25→20:15)
[2019-02-11] MEDS: ISOSORBIDE MONONITRATE 60 MG PO SCH (08:26)
--- NOTE | 2019-02-11 08:52 | FAST ---
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 Sabino Brewster M.D. ADMISSION DIAGNOSIS: - Stroke 01 - Right Body (Left Brain) (01.2) Acute left inferior cerebellar infarct. EATING: EATING - STEP 1: Does the patient require the assistance of a person or device, or need extra time when eating? No. EATING - SCORE: 7-IND GROOMING: Comb/brush hair Oral care Wash, rinse, and dry face Wash, rinse, and dry hands GROOMING - STEP 1: Does the patient require the assistance of a person or device, or need extra time when grooming? No. GROOMING - SCORE: 7-IND BATHING: Abdomen Buttocks Chest Left arm Left lower leg and foot Left upper leg Perineal area Right arm Right lower leg and foot Right upper leg BATHING - STEP 1: Does the patient require the assistance of a person or device, or need extra time when bathing? Yes. BATHING - STEP 2: Does the patient require the assistance of a helper? Yes. BATHING - STEP 3: How much assistance does the patient require from the helper? Only incidental help such as placement of a wash cloth in his/her hand a few times as s/he bathes OR help to bathe just one or two areas of the body BATHING - SCORE: 4-MIN DRESSING - UPPER BODY: T-shirt/pullover shirt (four steps) ARTICLES SCORE Total number of steps: 4 DRESSING - UPPER BODY - STEP 1: Does the patient require help from a person or device, or need extra time when dressing above the [address]? No. DRESSING - UPPER BODY - SCORE: 7-IND DRESSING - LOWER BODY: Elastic waist pants (three steps) Slip-on shoe - Left foot (one step) Slip-on shoe - Right foot (one step) Underwear (three steps) ARTICLES SCORE Total number of steps: 8 DRESSING - LOWER BODY - STEP 1: Does the patient require help from a person or device, or need extra time when dressing below the [address]? Yes. DRESSING - LOWER BODY - STEP 2: Does the patient require the assistance of a helper? Yes. DRESSING - LOWER BODY - STEP 3: Does the helper touch the patient while dressing? Yes. DRESSING - LOWER BODY - STEP 4: How many of the total steps does the patient complete on his/her own? 8 DRESSING - LOWER BODY - SCORE: 4-MIN TOILETING: TOILETING - STEP 1: Does the patient require the assistance of a person or device, or need extra time with toileting? Yes . TOILETING - STEP 2: Does the patient require the assistance of a helper? Yes. TOILETING - STEP 3: How much assistance does the patient require from the helper? Only supervision TOILETING - SCORE: 5-SUP BLADDER MANAGEMENT: Activity did not occur on this shift BLADDER MANAGEMENT - SCORE: 7-IND BOWEL MANAGEMENT: Activity did not occur on this shift BOWEL MANAGEMENT - SCORE: 7-IND TRANSFERS: BED, CHAIR, WHEELCHAIR: Activity did not occur on this shift TRANSFERS: BED, CHAIR, WHEELCHAIR - SCORE: 0-UNK TRANSFERS: TOILET: TRANSFERS: TOILET - STEP 1: Does the patient require the assistance of a person or device, or need extra time with toilet transfe rs? Yes. TRANSFERS: TOILET - STEP 2: Does the patient require the assistance of a helper? Yes. TRANSFERS: TOILET - STEP 3: How much assistance does the patient require from the helper? Only supervision, cuing, coaxing, OR he lp to set out transfer equipment or to lock brakes and/or lift foot rests TRANSFERS: TOILET - SCORE: 5-SUP TRANSFERS: SHOWER: Activity did not occur on this shift TRANSFERS: SHOWER - SCORE: 0-UNK TRANSFERS: TUB: TRANSFERS: TUB - STEP 1: Does the patient require the assistance of a person or device, or need extra time with tub transfers? Yes. TRANSFERS: TUB - STEP 2: Does the patient require the assistance of a helper? Yes. TRANSFERS: TUB - STEP 3: How much assistance does the patient require from the helper? Only supervision, cuing, coaxing, or he lp to set out transfer equipment or to lock brakes and/or lift foot rests TRANSFERS: TUB - SCORE: 5-SUP LOCOMOTION: WALK: Activity did not occur on this shift LOCOMOTION: WALK - SCORE: 0-UNK LOCOMOTION: WHEELCHAIR: Activity did not occur on this shift LOCOMOTION: WHEELCHAIR - SCORE: 0-UNK LOCOMOTION: STAIRS: Activity did not occur on this shift LOCOMOTION: STAIRS - SCORE: 0-UNK COMPREHENSION: COMPREHENSION: TYPE: Both COMPREHENSION - STEP 1: Does the patient require help from a person or device, or need extra time to understand complex and a bstract ideas (such as current events, finances, discharge planning, medical issues, relationships, e tc)? No. COMPREHENSION - STEP 2: Does the patient need extra time, require an assistive device (such as glasses for visual comprehensi on or a hearing aid for auditory comprehension) or does s/he have mild difficulty understanding compl ex and abstract information? Yes. COMPREHENSION - SCORE: 6-SINGH EXPRESSION EXPRESSION: TYPE: Both EXPRESSION - STEP 1: Does the patient require help from a person or device, or need extra time expressing complex and abst ract ideas (such as current events, finances, discharge planning, medical issues, relationships, etc) ? No. EXPRESSION - STEP 2: Does the patient need extra time, require an assistive device (such as augmentive communication syste m or a communication board), OR does s/he have mild difficulty expressing complex and abstract ideas (including mild dysarthria or mild word-find problems)? No. EXPRESSION - SCORE: 7-IND SOCIAL INTERACTION: SOCIAL INTERACTION - STEP 1: Does the patient require a helper to interact with others in social and therapeutic situations? No. SOCIAL INTERACTION - STEP 2: Does the patient need extra time in social situations, OR does s/he interact with staff, other patien ts, and family members ONLY in structured environments, OR does s/he require medication for social in teraction? No. SOCIAL INTERACTION - SCORE: 7-IND PROBLEM SOLVING: PROBLEM SOLVING - STEP 1: Does the patient need help from a person or device, or need extra time to solve complex problems such as managing a checking account or confronting interpersonal problems? No. PROBLEM SOLVING - STEP 2: Does the patient require extra time to make decisions or solve problems, OR does s/he have slight dif ficulty reading, initiating, or self-correcting in unfamiliar situations? Yes, patient needs extra ti me. PROBLEM SOLVING - SCORE: 6-SINGH MEMORY: MEMORY - STEP 1: Does the patient need help from a person or device, or need extra time to remember frequently encount ered people, daily routines, and executing requests? No. MEMORY - STEP 2: Does the patient have slight difficulty recognizing frequently encountered people, daily routines, or executing requests without the need for repetition or using self-initiated or environmental cues to remember? Yes. MEMORY - SCORE: 6-SINGH SIGNATURE PANEL: The following modified sections: Grooming - Score, Transfers: Bed, Chair, Wheelchair - Score, Transfe rs: Shower - Score were [electronically] signed by Mita Triplett OT on FriFeb 11 2019 08:51:52 GM T-0500 (Central Daylight Time)
--- NOTE | 2019-02-11 13:33 | FAST ---
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 Sabino Brewster M.D. ADMISSION DIAGNOSIS: - Stroke 01 - Right Body (Left Brain) (01.2) Acute left inferior cerebellar infarct. EATING: EATING - STEP 1: Does the patient require the assistance of a person or device, or need extra time when eating? Yes. EATING - STEP 2: Does the patient require the assistance of a helper? No, patient only requires an assistive device, O R s/he takes more than reasonable time to eat, OR there is a safety concern, OR s/he requires modifie d food consistency EATING - SCORE: 6-SINGH GROOMING: Comb/brush hair Oral care GROOMING - STEP 1: Does the patient require the assistance of a person or device, or need extra time when grooming? No. GROOMING - SCORE: 7-IND BATHING: Activity did not occur on this shift BATHING - SCORE: 0-UNK DRESSING - UPPER BODY: Activity did not occur on this shift ARTICLES SCORE Total number of steps: 0 DRESSING - UPPER BODY - SCORE: 0-UNK DRESSING - LOWER BODY: ARTICLES SCORE Total number of steps: 6 DRESSING - LOWER BODY - STEP 1: Does the patient require help from a person or device, or need extra time when dressing below the [address]? Yes. DRESSING - LOWER BODY - STEP 2: Does the patient require the assistance of a helper? Yes. DRESSING - LOWER BODY - STEP 3: Does the helper touch the patient while dressing? Yes. DRESSING - LOWER BODY - STEP 4: How many of the total steps does the patient complete on his/her own? 3 DRESSING - LOWER BODY - SCORE: 3-MOD TOILETING: TOILETING - STEP 1: Does the patient require the assistance of a person or device, or need extra time with toileting? Yes . TOILETING - STEP 2: Does the patient require the assistance of a helper? Yes. TOILETING - STEP 3: How much assistance does the patient require from the helper? Hands-on assistance from the helper TOILETING - STEP 4: Of the 3 tasks: 1) Adjusting clothing prior to use, 2) Cleansing of perineal area, 3) Adjusting clot gregor after use; How many tasks does the patient perform WITHOUT assistance of the helper? Two tasks TOILETING - SCORE: 3-MOD BLADDER MANAGEMENT: BLADDER MANAGEMENT - STEP 1: Does the patient control the bladder completely and intentionally without equipment or devices or med ications, and is always continent? No. BLADDER MANAGEMENT - STEP 2: Does the patient require the assistance of a helper? No, patient requires and independently uses an a ssistive device, such as a urinal, bedpan, bedside commode, catheter, absorbent pad, or collecting de vice BLADDER MANAGEMENT - SCORE: 6-SINGH BOWEL MANAGEMENT: Activity did not occur on this shift BOWEL MANAGEMENT - SCORE: 7-IND TRANSFERS: BED, CHAIR, WHEELCHAIR: TRANSFERS: BED, CHAIR, WHEELCHAIR - STEP 1: Does the patient require assistance of a person or device, or need extra time with bed, chair, or whe elchair transfers? Yes. TRANSFERS: BED, CHAIR, WHEELCHAIR - STEP 2: Does the patient require the assistance of a helper? Yes. TRANSFERS: BED, CHAIR, WHEELCHAIR - STEP 3: How much assistance does the patient require from the helper? Lifting of the legs TRANSFERS: BED, CHAIR, WHEELCHAIR - STEP 4: How many legs does the patient require the helper to lift? one leg TRANSFERS: BED, CHAIR, WHEELCHAIR - SCORE: 4-MIN TRANSFERS: TOILET: TRANSFERS: TOILET - STEP 1: Does the patient require the assistance of a person or device, or need extra time with toilet transfe rs? Yes. TRANSFERS: TOILET - STEP 2: Does the patient require the assistance of a helper? Yes. TRANSFERS: TOILET - STEP 3: How much assistance does the patient require from the helper? Patient performs half or more of the tr ansferring tasks TRANSFERS: TOILET - STEP 4: Does the patient need only incidental help such as contact guard or steadying during toilet transfer? No. Patient needs more than incidental help TRANSFERS: TOILET - SCORE: 3-MOD TRANSFERS: SHOWER: Activity did not occur on this shift TRANSFERS: SHOWER - SCORE: 0-UNK TRANSFERS: TUB: Activity did not occur on this shift TRANSFERS: TUB - SCORE: 0-UNK LOCOMOTION: WALK: Activity did not occur on this shift LOCOMOTION: WALK - SCORE: 0-UNK LOCOMOTION: WHEELCHAIR: Activity did not occur on this shift LOCOMOTION: WHEELCHAIR - SCORE: 0-UNK COMPREHENSION: COMPREHENSION: TYPE: Both COMPREHENSION - STEP 1: Does the patient require help from a person or device, or need extra time to understand complex and a bstract ideas (such as current events, finances, discharge planning, medical issues, relationships, e tc)? No. COMPREHENSION - STEP 2: Does the patient need extra time, require an assistive device (such as glasses for visual comprehensi on or a hearing aid for auditory comprehension) or does s/he have mild difficulty understanding compl ex and abstract information? Yes. COMPREHENSION - SCORE: 6-SINGH EXPRESSION EXPRESSION: TYPE: Both EXPRESSION - STEP 1: Does the patient require help from a person or device, or need extra time expressing complex and abst ract ideas (such as current events, finances, discharge planning, medical issues, relationships, etc) ? No. EXPRESSION - STEP 2: Does the patient need extra time, require an assistive device (such as augmentive communication syste m or a communication board), OR does s/he have mild difficulty expressing complex and abstract ideas (including mild dysarthria or mild word-find problems)? Yes. EXPRESSION - SCORE: 6-SINGH SOCIAL INTERACTION: SOCIAL INTERACTION - STEP 1: Does the patient require a helper to interact with others in social and therapeutic situations? No. SOCIAL INTERACTION - STEP 2: Does the patient need extra time in social situations, OR does s/he interact with staff, other patien ts, and family members ONLY in structured environments, OR does s/he require medication for social in teraction? Yes, patient needs extra time SOCIAL INTERACTION - SCORE: 6-SINGH PROBLEM SOLVING: PROBLEM SOLVING - STEP 1: Does the patient need help from a person or device, or need extra time to solve complex problems such as managing a checking account or confronting interpersonal problems? No. PROBLEM SOLVING - STEP 2: Does the patient require extra time to make decisions or solve problems, OR does s/he have slight dif ficulty reading, initiating, or self-correcting in unfamiliar situations? Yes, patient needs extra ti me. PROBLEM SOLVING - SCORE: 6-SINGH MEMORY: MEMORY - STEP 1: Does the patient need help from a person or device, or need extra time to remember frequently encount ered people, daily routines, and executing requests? No. MEMORY - STEP 2: Does the patient have slight difficulty recognizing frequently encountered people, daily routines, or executing requests without the need for repetition or using self-initiated or environmental cues to remember? Yes. MEMORY - SCORE: 6-SINGH SIGNATURE PANEL: The following modified sections: Eating - Score, Grooming - Score, Bathing - Score, Dressing - Upper Body - Score, Dressing - Lower Body - Score, Toileting - Score, Bladder Management - Score, Bowel Man agement - Score, Transfers: Bed, Chair, Wheelchair - Score, Transfers: Toilet - Score, Transfers: Iris wer - Score, Transfers: Tub - Score, Locomotion: Walk - Score, Locomotion: Wheelchair - Score, Compre hension - Score, Expression - Score, Social Interaction - Score, Problem Solving - Score, Memory - Sc ore were [electronically] signed by Barrera Liang on FriFeb 11 2019 13:32:43 T-0500 (Central Daylight Time)
--- NOTE | 2019-02-11 13:43 | PN ---
Date of Progress Note: 02/11/2019 Subjective: The patient was seen this morning for followup. No new complaints or problems reported. He was sitting in the chair, feeling fine. No cough. No trouble swallowing. Objective: Vital Signs: Reviewed. HEENT: Unremarkable. Lungs: Clear to auscultation. No rhonchi or rales. Heart: Sounds normal. Abdomen: Soft. Bowel sounds normal. No guarding, rigidity, tenderness, or distention. Extremities: No leg edema. Laboratory Data: White count 6.7, hemoglobin 11.3, platelets 183. Sodium level is 142, potassium 4. 0, chloride 106, bicarb 32, BUN 63, creatinine 2.18, glucose 162. The fingerstick blood sugar readin gs reviewed. Impression: 1.Diabetes mellitus, uncontrolled. 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 3.Hypertension. 4.Coronary artery disease. 5.Stroke. Plan: The patient's blood sugar is much better this morning. Yesterday, he had high blood sugar in the afternoon requiring IV insulin administration 2 different times. We will continue current insuli n dose and I will see him tomorrow for followup. He is scheduled to go home sometime next week. AUNG/MODL Voice ID: [id number] Report ID: [id number]
[2019-02-11] MEDS: BUMETANIDE PO SCH (17:11)
[2019-02-11] MEDS: TAMSULOSIN 0.4 MG PO SCH (20:14)
[2019-02-11] MEDS: SIMVASTATIN 80 MG PO SCH (20:14)
[2019-02-11] MEDS: ENOXAPARIN 30 MG/0.3 ML SQ SCH (20:15)
[2019-02-12] MEDS: INSULIN -REGULAR HUMAN 50 UNIT/0.5 ML ML SQ SCH ×4 (07:30→21:11)
[2019-02-12] MEDS: SODIUM CHLORIDE 0.9% 10ML INJ IV SCH ×2 (08:00→21:13)
[2019-02-12] MEDS: INSULIN GLARGINE 100 UNITS/ML SQ SCH (08:00)
[2019-02-12] MEDS: MULTIVITAMIN TAB PO SCH (08:11)
[2019-02-12] MEDS: FOLIC ACID 1 MG TABLET PO SCH (08:11)
[2019-02-12] MEDS: CLOPIDOGREL 75 MG TABLET PO SCH (08:11)
[2019-02-12] MEDS: ASPIRIN 81 MG PO SCH (09:43)
[2019-02-12] MEDS: ISOSORBIDE MONONITRATE PO SCH (09:45)
[2019-02-12] MEDS: METOPROLOL SUCCINATE 50 MG PO SCH ×2 (09:46→21:12)
[2019-02-12] MEDS: SYNTHROID 88 MCG PO SCH (09:47)
[2019-02-12] MEDS: BUMETANIDE 2 MG PO SCH (09:48)
--- NOTE | 2019-02-12 10:37 | P.RH.PN ---
Estimated Length of Stay: 22 Expected Discharge Date: 02/16/19 Discharge Disposition Plan: Home Family Support: Yes Fpc Goal: Mobility, Transfers, Self Care Vital Signs: Last Vital Signs Temp 97.2 F 02/12/19 07:48 Pulse 59 02/12/19 07:48 Resp 16 02/12/19 07:48 BP 157/68 H 02/12/19 07:48 Pulse Ox 96 02/12/19 07:48 Laboratory: Laboratory Last Values WBC 6.7 K/uL (4.3-10.9) D 02/11/19 06:45 RBC 3.76 M/uL (4.33-5.43) L 02/11/19 06:45 Hgb 11.3 g/dL (13.6-17.9) L 02/11/19 06:45 Hct 34.0 % (39.6-49.0) L 02/11/19 06:45 MCV 90.4 fL (80-100) 02/11/19 06:45 MCH 29.9 pg (27.0-35.0) 02/11/19 06:45 MCHC 33.1 g/dL (32.0-36.0) 02/11/19 06:45 RDW 13.4 % (12.1-15.2) 02/11/19 06:45 Plt Count 183 K/uL (152-406) 02/11/19 06:45 MPV 10.9 fL (7.6-11.3) 02/11/19 06:45 Neutrophils % 59.2 % (41.7-73.7) 02/11/19 06:45 Lymphocytes % 22.7 % (15.3-44.8) 02/11/19 06:45 Monocytes % 11.9 % (3.3-12.3) 02/11/19 06:45 Eosinophils % 5.4 % (0-4.4) H 02/11/19 06:45 Basophils % 0.8 % (0-1.3) 02/11/19 06:45 Absolute Neutrophils 4.0 K/uL (1.8-8.0) 02/11/19 06:45 Absolute Lymphocytes 1.5 K/uL (0.7-4.9) 02/11/19 06:45 Absolute Monocytes 0.8 K/uL (0.1-1.3) 02/11/19 06:45 Absolute Eosinophils 0.4 K/uL (0-0.5) 02/11/19 06:45 Absolute Basophils 0.1 K/uL (0-0.5) 02/11/19 06:45 Sodium 142 mmol/L (136-145) 02/11/19 06:45 Potassium 4.0 mmol/L (3.5-5.1) 02/11/19 06:45 Chloride 106 mmol/L (98-107) 02/11/19 06:45 Carbon Dioxide 32 mmol/L (21-32) 02/11/19 06:45 BUN 63 mg/dL (7-18) H 02/11/19 06:45 Creatinine 2.18 mg/dL (0.55-1.3) H 02/11/19 06:45 Estimated GFR 29 mL/min (=/>90) L 02/11/19 06:45 Glucose 162 mg/dL (74-106) H 02/11/19 06:45 POC Glucose 164 mg/dl (65-120) H 02/12/19 08:48 Calcium 9.0 mg/dL (8.5-10.1) 02/11/19 06:45 Phosphorus 2.9 mg/dL (2.5-4.9) 02/01/19 05:50 Magnesium 2.3 mg/dL (1.8-2.4) 02/09/19 11:02 Total Bilirubin 0.4 mg/dL (0.2-1.0) 02/09/19 11:02 AST 9 U/L (15-37) L 02/09/19 11:02 ALT 20 U/L (12-78) 02/09/19 11:02 Alkaline Phosphatase 96 U/L (45-117) 02/09/19 11:02 Serum Total Protein 7.1 g/dL (6.4-8.2) 02/09/19 11:02 Albumin 2.9 g/dL (3.4-5.0) L 02/11/19 06:45 Globulin 4.0 g/dL (2.3-3.5) H 02/09/19 11:02 Albumin/Globulin Ratio 0.8 (1.1-1.8) L 02/09/19 11:02 Prealbumin 18.9 mg/dL (20-40) L 02/11/19 06:45 Urine Color Yellow 01/26/19 14:40 Urine Appearance Clear 01/26/19 14:40 Urine pH 5.5 (5.0-7.0) 01/26/19 14:40 Ur Specific [place] 1.015 (1.005-1.030) 01/26/19 14:40 Urine Ketones Negative (NEG) 01/26/19 14:40 Urine Blood Negative (NEG) 01/26/19 14:40 Urine Nitrite Negative (NEG) 01/26/19 14:40 Urine Bilirubin Negative (NEG) 01/26/19 14:40 Urine Urobilinogen 0.2 mg/dL (0.2-1.0) 01/26/19 14:40 Ur Leukocyte Esterase Negative (NEG) 01/26/19 14:40 Urine RBC None seen /HPF (NONE SEEN) 01/26/19 14:40 Urine WBC <5 /HPF (<5) 01/26/19 14:40 Ur Squamous Epith Cells <5 /HPF (NONE SEEN) 01/26/19 14:40 Urine Bacteria None seen /HPF (NONE SEEN) 01/26/19 14:40 Urine Culture Reflexed Not needed 01/26/19 14:40 Urine Glucose 1+ (NEG) H 01/26/19 14:40 Urine Total Protein Trace (NEG) 01/26/19 14:40 Weight: 230 lb 1.6 oz Wound Present: No Closed Surgical Incision Present: No Negative Pressure Wound Therapy Present: No Physician Update: His sugars are still fluctuating. He is walking 250' with contact guard. He independent with grooming and upper body functions. He may require contact guard assistance for some transfers. He is at supervision to contact guard with [facility]. Medical Issues: Lantus 30 units daily. DVT prophylaxis - Lovenox 30mg SQ daily Medication Issues: Lantus 60 units SQ Daily with breakfast Functional Improvement: Patient continues to present w/ difficulty maintaining posture and balance throughout transfers and gait tx. Patient presents w/ good overall work ethic. Functional Improvement Occupational Therapy: pt can benifit with further therapy to address pt's static standing balance for clothing mgmt and for bathing tasks. Cont to increase pt's overall weakness in UE's and the lower extremities by educating and training on base of support for static standing while participating in activities. Cont to educate and train pt on energy conservation techniques and safety. cont with the POC and the goals by the supervising OTR. Speech Therapy Update: Patient is making significant progress on short and correction goals related to cognitive-linguistic skills. Pt c/o frequently feeling "sleepy" which makes it difficulty for him to concentrate. Patient is at MIN A for auditory comprehension, MOD I for verbal expression, MOD I for social interaction, SUPV for problem solving, and SUPV for memory. Summary: Patient's care plan and correction goals have been reviewed and revised as necessary. Please see the Rehabilitation Signature page for all necessary signatures.
--- NOTE | 2019-02-12 12:42 | FAST ---
ENCOUNTER DATE AND TIME: 02/12/2019 08:00 (CDT) NAME ALISSON HERNANDEZ DATE OF : 1930 DATE OF ADMISSION: 01/26/2019 13:45 (MIXOLOGIST) PHONE: AGE: 88 SSN# [id number] GENDER: Male ENCOUNTER PHYSICIAN: Dr. Sabino Brewster M.D. ADMISSION DIAGNOSIS: - Stroke 01 - Right Body (Left Brain) (01.2) Acute left inferior cerebellar infarct. EATING: Activity did not occur on this shift EATING - SCORE: 0-UNK GROOMING: Comb/brush hair Wash, rinse, and dry face Wash, rinse, and dry hands GROOMING - STEP 1: Does the patient require the assistance of a person or device, or need extra time when grooming? No. GROOMING - SCORE: 7-IND BATHING: Abdomen Buttocks Chest Left arm Left lower leg and foot Left upper leg Perineal area Right arm Right lower leg and foot Right upper leg BATHING - STEP 1: Does the patient require the assistance of a person or device, or need extra time when bathing? Yes. BATHING - STEP 2: Does the patient require the assistance of a helper? Yes. BATHING - STEP 3: How much assistance does the patient require from the helper? Only incidental help such as placement of a wash cloth in his/her hand a few times as s/he bathes OR help to bathe just one or two areas of the body BATHING - SCORE: 4-MIN DRESSING - UPPER BODY: T-shirt/pullover shirt (four steps) ARTICLES SCORE Total number of steps: 4 DRESSING - UPPER BODY - STEP 1: Does the patient require help from a person or device, or need extra time when dressing above the [address]? No. DRESSING - UPPER BODY - SCORE: 7-IND DRESSING - LOWER BODY: Slip-on shoe - Left foot (one step) Slip-on shoe - Right foot (one step) Underwear (three steps) ARTICLES SCORE Total number of steps: 5 DRESSING - LOWER BODY - STEP 1: Does the patient require help from a person or device, or need extra time when dressing below the [address]? Yes. DRESSING - LOWER BODY - STEP 2: Does the patient require the assistance of a helper? Yes. DRESSING - LOWER BODY - STEP 3: Does the helper touch the patient while dressing? Yes. DRESSING - LOWER BODY - STEP 4: How many of the total steps does the patient complete on his/her own? 5 DRESSING - LOWER BODY - SCORE: 4-MIN TOILETING: Activity did not occur on this shift TOILETING - SCORE: 0-UNK BLADDER MANAGEMENT: Activity did not occur on this shift BLADDER MANAGEMENT - SCORE: 7-IND BOWEL MANAGEMENT: Activity did not occur on this shift BOWEL MANAGEMENT - SCORE: 7-IND TRANSFERS: BED, CHAIR, WHEELCHAIR: Activity did not occur on this shift TRANSFERS: BED, CHAIR, WHEELCHAIR - SCORE: 0-UNK TRANSFERS: TOILET: Activity did not occur on this shift TRANSFERS: TOILET - SCORE: 0-UNK TRANSFERS: SHOWER: Activity did not occur on this shift TRANSFERS: SHOWER - SCORE: 0-UNK TRANSFERS: TUB: TRANSFERS: TUB - STEP 1: Does the patient require the assistance of a person or device, or need extra time with tub transfers? Yes. TRANSFERS: TUB - STEP 2: Does the patient require the assistance of a helper? Yes. TRANSFERS: TUB - STEP 3: How much assistance does the patient require from the helper? Incidental help such as contact guardin g or steadying, OR help to lift one leg into the tub TRANSFERS: TUB - SCORE: 4-MIN LOCOMOTION: WALK: Activity did not occur on this shift LOCOMOTION: WALK - SCORE: 0-UNK LOCOMOTION: WHEELCHAIR: Activity did not occur on this shift LOCOMOTION: WHEELCHAIR - SCORE: 0-UNK LOCOMOTION: STAIRS: Activity did not occur on this shift LOCOMOTION: STAIRS - SCORE: 0-UNK COMPREHENSION: COMPREHENSION: TYPE: Both COMPREHENSION - STEP 1: Does the patient require help from a person or device, or need extra time to understand complex and a bstract ideas (such as current events, finances, discharge planning, medical issues, relationships, e tc)? Yes. COMPREHENSION - STEP 2: Does the patient require help to understand questions or statements about basic needs or ideas (such as hunger, thirst, sleep, safety, daily schedule, room location, or discomfort) half or more of the t ld? No. COMPREHENSION - STEP 3: How often does the patient need help to understand directions and conversation about basic needs? 10% - 24% of the time COMPREHENSION - SCORE: 4-MIN EXPRESSION EXPRESSION: TYPE: Both EXPRESSION - STEP 1: Does the patient require help from a person or device, or need extra time expressing complex and abst ract ideas (such as current events, finances, discharge planning, medical issues, relationships, etc) ? Yes. EXPRESSION - STEP 2: Does the patient require help to express basic necessities or ideas (such as hunger, thirst, sleep, s afety, daily schedule, room location, or discomfort) half or more of the time? No. EXPRESSION - STEP 3: How often does the patient need help to express directions and conversation about basic needs? Less t brady 10% of the time EXPRESSION - SCORE: 5-SUP SOCIAL INTERACTION: SOCIAL INTERACTION - STEP 1: Does the patient require a helper to interact with others in social and therapeutic situations? No. SOCIAL INTERACTION - STEP 2: Does the patient need extra time in social situations, OR does s/he interact with staff, other patien ts, and family members ONLY in structured environments, OR does s/he require medication for social in teraction? Yes, patient needs extra time SOCIAL INTERACTION - SCORE: 6-SINGH PROBLEM SOLVING: PROBLEM SOLVING - STEP 1: Does the patient need help from a person or device, or need extra time to solve complex problems such as managing a checking account or confronting interpersonal problems? Yes. PROBLEM SOLVING - STEP 2: Does the patient solve basic routine problems half or more of the time? Yes. PROBLEM SOLVING - STEP 3: How often does the patient need help to solve basic routine problems? 10%-24% of the time PROBLEM SOLVING - SCORE: 4-MIN MEMORY: MEMORY - STEP 1: Does the patient need help from a person or device, or need extra time to remember frequently encount ered people, daily routines, and executing requests? Yes. MEMORY - STEP 2: How often does the patient need help to remember frequently encountered people, daily routines, and e xecuting requests? 10% - 24% of the time MEMORY - SCORE: 4-MIN SIGNATURE PANEL: The following modified sections: Eating - Score, Grooming - Score, Bathing - Score, Dressing - Upper Body - Score, Dressing - Lower Body - Score, Toileting - Score, Transfers: Bed, Chair, Wheelchair - S core, Transfers: Toilet - Score, Transfers: Shower - Score, Transfers: Tub - Score, Comprehension - S core, Expression - Score, Social Interaction - Score, Problem Solving - Score, Memory - Score were [e lectronically] signed by Su Mcdonald OT on FriFeb 12 2019 12:42:07 GMT-0500 (Central Da ylight Time)
--- NOTE | 2019-02-12 13:14 | PN ---
Date of Progress Note: 02/12/2019 History: The patient was seen this morning for followup. No new complaints or problems reported by patient. Lying in bed, not in any distress. He was sleeping, easily arousable, and denied any compl aints. His fingerstick blood sugar this morning was 58, but he was totally asymptomatic. Physical Examination: HEENT: Unremarkable. Lungs: Clear to auscultation. Heart: Sounds normal. Abdomen: Soft. Bowel sounds normal. No guarding, rigidity, tenderness, or distention. Extremities: No leg edema. Impression: 1.Diabetes mellitus, uncontrolled. 2.Hypertension. 3.Coronary artery disease. 4.Stroke. Plan: We will continue current medications, half amp of D50 IV was ordered this morning for low bloo d sugar and the patient had some orange juice to try to correct this hypoglycemia problem, and he carol l be eating breakfast soon after this low blood sugar was noted. Yesterday's fingerstick blood sugar readings reviewed. He did have adequate amount of consistent snack last night that was requested so if this pattern now continues then we will have to make some more adjustment either in the diet or t he insulin. The only thing different last night, I will have to check on the chocolate milkshake that he got, I will have to check into that if there was any variation in that. AUNG/MODL Voice ID: [id number] Report ID: [id number]
--- NOTE | 2019-02-12 15:09 | FAST ---
ENCOUNTER DATE AND TIME: 02/12/2019 08:00 (CDT) NAME ALISSON HERNANDEZ DATE OF : 1930 DATE OF ADMISSION: 01/26/2019 13:45 (GOAT DRIVER) PHONE: AGE: 88 SSN# [id number] GENDER: Male ENCOUNTER PHYSICIAN: Dr. Sabino Brewster M.D. ADMISSION DIAGNOSIS: - Stroke 01 - Right Body (Left Brain) (01.2) Acute left inferior cerebellar infarct. EATING: Activity did not occur on this shift EATING - SCORE: 0-UNK GROOMING: Activity did not occur on this shift GROOMING - SCORE: 0-UNK BATHING: Activity did not occur on this shift BATHING - SCORE: 0-UNK DRESSING - UPPER BODY: Activity did not occur on this shift Patient is not dressing in public clothing ARTICLES SCORE Total number of steps: 0 DRESSING - UPPER BODY - SCORE: 0-UNK DRESSING - LOWER BODY: Activity did not occur on this shift Patient is not dressing in public clothing ARTICLES SCORE Total number of steps: 0 DRESSING - LOWER BODY - SCORE: 0-UNK TOILETING: Activity did not occur on this shift TOILETING - SCORE: 0-UNK BLADDER MANAGEMENT: Activity did not occur on this shift BLADDER MANAGEMENT - SCORE: 7-IND BOWEL MANAGEMENT: Activity did not occur on this shift BOWEL MANAGEMENT - SCORE: 7-IND TRANSFERS: BED, CHAIR, WHEELCHAIR: TRANSFERS: BED, CHAIR, WHEELCHAIR - STEP 1: Does the patient require assistance of a person or device, or need extra time with bed, chair, or whe elchair transfers? Yes. TRANSFERS: BED, CHAIR, WHEELCHAIR - STEP 2: Does the patient require the assistance of a helper? Yes. TRANSFERS: BED, CHAIR, WHEELCHAIR - STEP 3: How much assistance does the patient require from the helper? Lifting of the legs TRANSFERS: BED, CHAIR, WHEELCHAIR - STEP 4: How many legs does the patient require the helper to lift? both legs TRANSFERS: BED, CHAIR, WHEELCHAIR - SCORE: 3-MOD TRANSFERS: TOILET: Activity did not occur on this shift TRANSFERS: TOILET - SCORE: 0-UNK TRANSFERS: SHOWER: Activity did not occur on this shift TRANSFERS: SHOWER - SCORE: 0-UNK TRANSFERS: TUB: Activity did not occur on this shift TRANSFERS: TUB - SCORE: 0-UNK LOCOMOTION: WALK: LOCOMOTION: WALK - STEP 1: Does the patient need help from a person or device, or need extra time to walk 150 feet? Yes. LOCOMOTION: WALK - STEP 2: How much assistance does the patient require to walk a minimum of 150 feet? Only incidental help such as contact guarding or steadying LOCOMOTION: WALK - SCORE: 4-MIN LOCOMOTION: WHEELCHAIR: LOCOMOTION: WHEELCHAIR - STEP 1: Does the patient need help to go 150 feet in a wheelchair? Yes. LOCOMOTION: WHEELCHAIR - STEP 2: How much assistance does the patient need from the helper? Only supervision, cuing, or coaxing LOCOMOTION: WHEELCHAIR - SCORE: 5-SUP LOCOMOTION: STAIRS: Activity did not occur on this shift LOCOMOTION: STAIRS - SCORE: 0-UNK COMPREHENSION: COMPREHENSION - SCORE: 0-UNK EXPRESSION EXPRESSION - SCORE: 0-UNK SOCIAL INTERACTION: SOCIAL INTERACTION - SCORE: 0-UNK PROBLEM SOLVING: PROBLEM SOLVING - SCORE: 0-UNK MEMORY: MEMORY - SCORE: 0-UNK SIGNATURE PANEL: The following modified sections: Transfers: Bed, Chair, Wheelchair - Score, Transfers: Toilet - Score , Locomotion: Walk - Score, Locomotion: Wheelchair - Score, Locomotion: Stairs - Score were [electron icakaron] signed by Robert Peters PTA on FriFeb 12 2019 15:08:32 GMT-0500 (Central Daylight Time)
--- NOTE | 2019-02-12 15:11 | FAST ---
ENCOUNTER DATE AND TIME: 02/11/2019 08:00 (CDT) NAME ALISSON HERNANDEZ DATE OF : 1930 DATE OF ADMISSION: 01/26/2019 13:45 (BRIM MOLDER) PHONE: AGE: 88 N# [id number] GENDER: Male ENCOUNTER PHYSICIAN: Dr. Sabino Brewster M.D. ADMISSION DIAGNOSIS: - Stroke 01 - Right Body (Left Brain) (01.2) Acute left inferior cerebellar infarct. EATING: Activity did not occur on this shift EATING - SCORE: 0-UNK GROOMING: Activity did not occur on this shift GROOMING - SCORE: 0-UNK BATHING: Activity did not occur on this shift BATHING - SCORE: 0-UNK DRESSING - UPPER BODY: Activity did not occur on this shift Patient is not dressing in public clothing ARTICLES SCORE Total number of steps: 0 DRESSING - UPPER BODY - SCORE: 0-UNK DRESSING - LOWER BODY: Activity did not occur on this shift Patient is not dressing in public clothing ARTICLES SCORE Total number of steps: 0 DRESSING - LOWER BODY - SCORE: 0-UNK TOILETING: Activity did not occur on this shift TOILETING - SCORE: 0-UNK BLADDER MANAGEMENT: Activity did not occur on this shift BLADDER MANAGEMENT - SCORE: 7-IND BOWEL MANAGEMENT: Activity did not occur on this shift BOWEL MANAGEMENT - SCORE: 7-IND TRANSFERS: BED, CHAIR, WHEELCHAIR: TRANSFERS: BED, CHAIR, WHEELCHAIR - STEP 1: Does the patient require assistance of a person or device, or need extra time with bed, chair, or whe elchair transfers? Yes. TRANSFERS: BED, CHAIR, WHEELCHAIR - STEP 2: Does the patient require the assistance of a helper? Yes. TRANSFERS: BED, CHAIR, WHEELCHAIR - STEP 3: How much assistance does the patient require from the helper? Lifting of the legs TRANSFERS: BED, CHAIR, WHEELCHAIR - STEP 4: How many legs does the patient require the helper to lift? both legs TRANSFERS: BED, CHAIR, WHEELCHAIR - SCORE: 3-MOD TRANSFERS: TOILET: Activity did not occur on this shift TRANSFERS: TOILET - SCORE: 0-UNK TRANSFERS: SHOWER: Activity did not occur on this shift TRANSFERS: SHOWER - SCORE: 0-UNK TRANSFERS: TUB: Activity did not occur on this shift TRANSFERS: TUB - SCORE: 0-UNK LOCOMOTION: WALK: LOCOMOTION: WALK - STEP 1: Does the patient need help from a person or device, or need extra time to walk 150 feet? Yes. LOCOMOTION: WALK - STEP 2: How much assistance does the patient require to walk a minimum of 150 feet? Only incidental help such as contact guarding or steadying LOCOMOTION: WALK - SCORE: 4-MIN LOCOMOTION: WHEELCHAIR: LOCOMOTION: WHEELCHAIR - STEP 1: Does the patient need help to go 150 feet in a wheelchair? Yes. LOCOMOTION: WHEELCHAIR - STEP 2: How much assistance does the patient need from the helper? Only supervision, cuing, or coaxing LOCOMOTION: WHEELCHAIR - SCORE: 5-SUP LOCOMOTION: STAIRS: Activity did not occur on this shift LOCOMOTION: STAIRS - SCORE: 0-UNK COMPREHENSION: COMPREHENSION - SCORE: 0-UNK EXPRESSION EXPRESSION - SCORE: 0-UNK SOCIAL INTERACTION: SOCIAL INTERACTION - SCORE: 0-UNK PROBLEM SOLVING: PROBLEM SOLVING - SCORE: 0-UNK MEMORY: MEMORY - SCORE: 0-UNK SIGNATURE PANEL: The following modified sections: Transfers: Bed, Chair, Wheelchair - Score, Transfers: Toilet - Score , Locomotion: Walk - Score, Locomotion: Wheelchair - Score, Locomotion: Stairs - Score were [electron icakaron] signed by Robert Peters PTA on FriFeb 12 2019 15:11:01 T-0500 (Central Daylight Time)
--- NOTE | 2019-02-12 15:17 | FAST ---
ENCOUNTER DATE AND TIME: 02/10/2019 08:00 (CDT) NAME ALISSON HERNANDEZ DATE OF : 1930 DATE OF ADMISSION: 01/26/2019 13:45 (EDGE KITTER) PHONE: AGE: 88 SSN# [id number] GENDER: Male ENCOUNTER PHYSICIAN: Dr. Sabino Brewster M.D. ADMISSION DIAGNOSIS: - Stroke 01 - Right Body (Left Brain) (01.2) Acute left inferior cerebellar infarct. EATING: Activity did not occur on this shift EATING - SCORE: 0-UNK GROOMING: Activity did not occur on this shift GROOMING - SCORE: 0-UNK BATHING: Activity did not occur on this shift BATHING - SCORE: 0-UNK DRESSING - UPPER BODY: Activity did not occur on this shift Patient is not dressing in public clothing ARTICLES SCORE Total number of steps: 0 DRESSING - UPPER BODY - SCORE: 0-UNK DRESSING - LOWER BODY: Activity did not occur on this shift Patient is not dressing in public clothing ARTICLES SCORE Total number of steps: 0 DRESSING - LOWER BODY - SCORE: 0-UNK TOILETING: Activity did not occur on this shift TOILETING - SCORE: 0-UNK BLADDER MANAGEMENT: Activity did not occur on this shift BLADDER MANAGEMENT - SCORE: 7-IND BOWEL MANAGEMENT: Activity did not occur on this shift BOWEL MANAGEMENT - SCORE: 7-IND TRANSFERS: BED, CHAIR, WHEELCHAIR: TRANSFERS: BED, CHAIR, WHEELCHAIR - STEP 1: Does the patient require assistance of a person or device, or need extra time with bed, chair, or whe elchair transfers? Yes. TRANSFERS: BED, CHAIR, WHEELCHAIR - STEP 2: Does the patient require the assistance of a helper? Yes. TRANSFERS: BED, CHAIR, WHEELCHAIR - STEP 3: How much assistance does the patient require from the helper? Lifting of the legs TRANSFERS: BED, CHAIR, WHEELCHAIR - STEP 4: How many legs does the patient require the helper to lift? both legs TRANSFERS: BED, CHAIR, WHEELCHAIR - SCORE: 3-MOD TRANSFERS: TOILET: Activity did not occur on this shift TRANSFERS: TOILET - SCORE: 0-UNK TRANSFERS: SHOWER: Activity did not occur on this shift TRANSFERS: SHOWER - SCORE: 0-UNK TRANSFERS: TUB: Activity did not occur on this shift TRANSFERS: TUB - SCORE: 0-UNK LOCOMOTION: WALK: LOCOMOTION: WALK - STEP 1: Does the patient need help from a person or device, or need extra time to walk 150 feet? Yes. LOCOMOTION: WALK - STEP 2: How much assistance does the patient require to walk a minimum of 150 feet? Only incidental help such as contact guarding or steadying LOCOMOTION: WALK - SCORE: 4-MIN LOCOMOTION: WHEELCHAIR: LOCOMOTION: WHEELCHAIR - STEP 1: Does the patient need help to go 150 feet in a wheelchair? Yes. LOCOMOTION: WHEELCHAIR - STEP 2: How much assistance does the patient need from the helper? Only supervision, cuing, or coaxing LOCOMOTION: WHEELCHAIR - SCORE: 5-SUP LOCOMOTION: STAIRS: Activity did not occur on this shift LOCOMOTION: STAIRS - SCORE: 0-UNK COMPREHENSION: COMPREHENSION - SCORE: 0-UNK EXPRESSION EXPRESSION - SCORE: 0-UNK SOCIAL INTERACTION: SOCIAL INTERACTION - SCORE: 0-UNK PROBLEM SOLVING: PROBLEM SOLVING - SCORE: 0-UNK MEMORY: MEMORY - SCORE: 0-UNK SIGNATURE PANEL: The following modified sections: Transfers: Bed, Chair, Wheelchair - Score, Transfers: Toilet - Score , Locomotion: Walk - Score, Locomotion: Wheelchair - Score, Locomotion: Stairs - Score were [electron icallbrenda] signed by Robert Peters PTA on FriFeb 12 2019 15:16:43 T-0500 (Central Daylight Time)
--- NOTE | 2019-02-12 15:35 | FAST ---
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 Sabino Brewster M.D. ADMISSION DIAGNOSIS: - Stroke 01 - Right Body (Left Brain) (01.2) Acute left inferior cerebellar infarct. EATING: EATING - STEP 1: Does the patient require the assistance of a person or device, or need extra time when eating? Yes. EATING - STEP 2: Does the patient require the assistance of a helper? Yes. EATING - STEP 3: Does the patient perform half or more of the eating tasks? Yes. EATING - STEP 4: Does the patient need only supervision, cuing, coaxing OR help to apply an orthosis OR help to cut fo od, open containers, pour liquids, or butter bread? Yes. EATING - SCORE: 5-SUP GROOMING: Comb/brush hair Oral care Wash, rinse, and dry face Wash, rinse, and dry hands GROOMING - STEP 1: Does the patient require the assistance of a person or device, or need extra time when grooming? Yes. GROOMING - STEP 2: Does the patient require the assistance of a helper? No. The patient only requires an assistive devic e, OR takes more than reasonable time to groom, OR there is a concern for safety as the patient groom s GROOMING - SCORE: 6-SINGH BATHING: Activity did not occur on this shift BATHING - SCORE: 0-UNK DRESSING - UPPER BODY: Activity did not occur on this shift ARTICLES SCORE Total number of steps: 0 DRESSING - UPPER BODY - SCORE: 0-UNK DRESSING - LOWER BODY: Slip-on shoe - Left foot (one step) Slip-on shoe - Right foot (one step) Sock - Left foot (one step) Sock - Right foot (one step) Zippered pants (four steps) ARTICLES SCORE Total number of steps: 8 DRESSING - LOWER BODY - STEP 1: Does the patient require help from a person or device, or need extra time when dressing below the [address] st? Yes. DRESSING - LOWER BODY - STEP 2: Does the patient require the assistance of a helper? Yes. DRESSING - LOWER BODY - STEP 3: Does the helper touch the patient while dressing? Yes. DRESSING - LOWER BODY - STEP 4: How many of the total steps does the patient complete on his/her own? 3 DRESSING - LOWER BODY - STEP 5: Does patient require total assistance for dressing below the waist such as the helper holding clothin g and performing basically all the activities? No. DRESSING - LOWER BODY - SCORE: 2-MAX TOILETING: TOILETING - STEP 1: Does the patient require the assistance of a person or device, or need extra time with toileting? Yes . TOILETING - STEP 2: Does the patient require the assistance of a helper? Yes. TOILETING - STEP 3: How much assistance does the patient require from the helper? Hands-on assistance from the helper TOILETING - STEP 4: Of the 3 tasks: 1) Adjusting clothing prior to use, 2) Cleansing of perineal area, 3) Adjusting clot gregor after use; How many tasks does the patient perform WITHOUT assistance of the helper? Three tasks with steadying assistance from the helper TOILETING - SCORE: 4-MIN BLADDER MANAGEMENT: BLADDER MANAGEMENT - STEP 1: Does the patient control the bladder completely and intentionally without equipment or devices or med ications, and is always continent? No. BLADDER MANAGEMENT - STEP 2: Does the patient require the assistance of a helper? No, patient only requires extra time BLADDER MANAGEMENT - SCORE: 6-SINGH BLADDER MANAGEMENT - FREQUENCY OF ACCIDENTS: BLADDER MANAGEMENT(FA) - STEP 1: How many accidents has the patient had during the current shift? 0 BOWEL MANAGEMENT: BOWEL MANAGEMENT - STEP 1: Does the patient control bowels completely and intentionally without equipment devices or medications AND is always continent? No. BOWEL MANAGEMENT - STEP 2: Does the patient require the assistance of a helper? No, patient requires medication for control such as stool softeners, suppositories, laxatives, enemas, or OTC medications BOWEL MANAGEMENT - SCORE: 6-SINGH BOWEL MANAGEMENT - FREQUENCY OF ACCIDENTS: BOWEL MANAGEMENT(FA) - STEP 1: How many accidents has the patient had during the current shift? 0 TRANSFERS: BED, CHAIR, WHEELCHAIR: TRANSFERS: BED, CHAIR, WHEELCHAIR - STEP 1: Does the patient require assistance of a person or device, or need extra time with bed, chair, or whe elchair transfers? Yes. TRANSFERS: BED, CHAIR, WHEELCHAIR - STEP 2: Does the patient require the assistance of a helper? Yes. TRANSFERS: BED, CHAIR, WHEELCHAIR - STEP 3: How much assistance does the patient require from the helper? Lifting of the legs TRANSFERS: BED, CHAIR, WHEELCHAIR - STEP 4: How many legs does the patient require the helper to lift? one leg TRANSFERS: BED, CHAIR, WHEELCHAIR - SCORE: 4-MIN TRANSFERS: TOILET: TRANSFERS: TOILET - STEP 1: Does the patient require the assistance of a person or device, or need extra time with toilet transfe rs? Yes. TRANSFERS: TOILET - STEP 2: Does the patient require the assistance of a helper? Yes. TRANSFERS: TOILET - STEP 3: How much assistance does the patient require from the helper? Patient performs half or more of the tr ansferring tasks TRANSFERS: TOILET - STEP 4: Does the patient need only incidental help such as contact guard or steadying during toilet transfer? No. Patient needs more than incidental help TRANSFERS: TOILET - SCORE: 3-MOD TRANSFERS: SHOWER: Activity did not occur on this shift TRANSFERS: SHOWER - SCORE: 0-UNK TRANSFERS: TUB: Activity did not occur on this shift TRANSFERS: TUB - SCORE: 0-UNK LOCOMOTION: WALK: Activity did not occur on this shift LOCOMOTION: WALK - SCORE: 0-UNK LOCOMOTION: WHEELCHAIR: LOCOMOTION: WHEELCHAIR - STEP 1: Does the patient need help to go 150 feet in a wheelchair? Yes. LOCOMOTION: WHEELCHAIR - STEP 2: How much assistance does the patient need from the helper? Only supervision, cuing, or coaxing LOCOMOTION: WHEELCHAIR - SCORE: 5-SUP COMPREHENSION: COMPREHENSION: TYPE: Both COMPREHENSION - STEP 1: Does the patient require help from a person or device, or need extra time to understand complex and a bstract ideas (such as current events, finances, discharge planning, medical issues, relationships, e tc)? No. COMPREHENSION - STEP 2: Does the patient need extra time, require an assistive device (such as glasses for visual comprehensi on or a hearing aid for auditory comprehension) or does s/he have mild difficulty understanding compl ex and abstract information? Yes. COMPREHENSION - SCORE: 6-SINGH EXPRESSION EXPRESSION: TYPE: Both EXPRESSION - STEP 1: Does the patient require help from a person or device, or need extra time expressing complex and abst ract ideas (such as current events, finances, discharge planning, medical issues, relationships, etc) ? No. EXPRESSION - STEP 2: Does the patient need extra time, require an assistive device (such as augmentive communication syste m or a communication board), OR does s/he have mild difficulty expressing complex and abstract ideas (including mild dysarthria or mild word-find problems)? Yes. EXPRESSION - SCORE: 6-SINGH SOCIAL INTERACTION: SOCIAL INTERACTION - STEP 1: Does the patient require a helper to interact with others in social and therapeutic situations? No. SOCIAL INTERACTION - STEP 2: Does the patient need extra time in social situations, OR does s/he interact with staff, other patien ts, and family members ONLY in structured environments, OR does s/he require medication for social in teraction? Yes, patient needs extra time SOCIAL INTERACTION - SCORE: 6-SINGH PROBLEM SOLVING: PROBLEM SOLVING - STEP 1: Does the patient need help from a person or device, or need extra time to solve complex problems such as managing a checking account or confronting interpersonal problems? No. PROBLEM SOLVING - STEP 2: Does the patient require extra time to make decisions or solve problems, OR does s/he have slight dif ficulty reading, initiating, or self-correcting in unfamiliar situations? Yes, patient needs extra ti me. PROBLEM SOLVING - SCORE: 6-SINGH MEMORY: MEMORY - STEP 1: Does the patient need help from a person or device, or need extra time to remember frequently encount ered people, daily routines, and executing requests? No. MEMORY - STEP 2: Does the patient have slight difficulty recognizing frequently encountered people, daily routines, or executing requests without the need for repetition or using self-initiated or environmental cues to remember? Yes. MEMORY - SCORE: 6-SINGH SIGNATURE PANEL: The following modified sections: Eating - Score, Grooming - Score, Bathing - Score, Dressing - Upper Body - Score, Dressing - Lower Body - Score, Toileting - Score, Bladder Management - Score, Bowel Man agement - Score, Transfers: Bed, Chair, Wheelchair - Score, Transfers: Toilet - Score, Transfers: Iris wer - Score, Transfers: Tub - Score, Locomotion: Walk - Score, Locomotion: Wheelchair - Score, Compre hension - Score, Expression - Score, Social Interaction - Score, Problem Solving - Score, Memory - Sc ore were [electronically] signed by Jennifer Adame C.N.A. on FriFeb 12 2019 15:34:35 T-0500 (Centra [place] Daylight Time)
[2019-02-12] MEDS: BUMETANIDE PO SCH (17:17)
[2019-02-12] MEDS: ENOXAPARIN 30 MG/0.3 ML SQ SCH (21:10)
[2019-02-12] MEDS: TAMSULOSIN 0.4 MG PO SCH (21:16)
[2019-02-12] MEDS: SIMVASTATIN 80 MG PO SCH (21:16)
--- NOTE | 2019-02-13 02:58 | FAST ---
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 Sabino Brewster M.D. ADMISSION DIAGNOSIS: - Stroke 01 - Right Body (Left Brain) (01.2) Acute left inferior cerebellar infarct. EATING: Activity did not occur on this shift EATING - SCORE: 0-UNK GROOMING: Oral care Wash, rinse, and dry face Wash, rinse, and dry hands GROOMING - STEP 1: Does the patient require the assistance of a person or device, or need extra time when grooming? Yes. GROOMING - STEP 2: Does the patient require the assistance of a helper? Yes. GROOMING - STEP 3: How much assistance does the patient require from the helper? Only prior equipment preparation/set up from the helper GROOMING - SCORE: 5-SUP BATHING: Activity did not occur on this shift BATHING - SCORE: 0-UNK DRESSING - UPPER BODY: Patient is not dressing in public clothing ARTICLES SCORE Total number of steps: 0 DRESSING - UPPER BODY - SCORE: 0-UNK DRESSING - LOWER BODY: Patient is not dressing in public clothing ARTICLES SCORE Total number of steps: 0 DRESSING - LOWER BODY - SCORE: 0-UNK TOILETING: TOILETING - STEP 1: Does the patient require the assistance of a person or device, or need extra time with toileting? Yes . TOILETING - STEP 2: Does the patient require the assistance of a helper? Yes. TOILETING - STEP 3: How much assistance does the patient require from the helper? Only supervision TOILETING - SCORE: 5-SUP BLADDER MANAGEMENT: BLADDER MANAGEMENT - STEP 1: Does the patient control the bladder completely and intentionally without equipment or devices or med ications, and is always continent? No. BLADDER MANAGEMENT - STEP 2: Does the patient require the assistance of a helper? Yes. BLADDER MANAGEMENT - STEP 3: How much assistance does the patient require from the helper? Only set-up of equipment - such as plac ing it within reach of the patient or emptying a device - to maintain either satisfactory voiding pat tern or managing an external device, such as an absorbent pad, ileal device, or catheter BLADDER MANAGEMENT - SCORE: 5-SUP BOWEL MANAGEMENT: Activity did not occur on this shift BOWEL MANAGEMENT - SCORE: 7-IND TRANSFERS: BED, CHAIR, WHEELCHAIR: TRANSFERS: BED, CHAIR, WHEELCHAIR - STEP 1: Does the patient require assistance of a person or device, or need extra time with bed, chair, or whe elchair transfers? Yes. TRANSFERS: BED, CHAIR, WHEELCHAIR - STEP 2: Does the patient require the assistance of a helper? Yes. TRANSFERS: BED, CHAIR, WHEELCHAIR - STEP 3: How much assistance does the patient require from the helper? Lifting of the legs TRANSFERS: BED, CHAIR, WHEELCHAIR - STEP 4: How many legs does the patient require the helper to lift? both legs TRANSFERS: BED, CHAIR, WHEELCHAIR - SCORE: 3-MOD TRANSFERS: TOILET: Patient requires more than one helper and/or the use of a mechanical lift is utilized TRANSFERS: TOILET - SCORE: 1-DEP TRANSFERS: SHOWER: Activity did not occur on this shift TRANSFERS: SHOWER - SCORE: 0-UNK TRANSFERS: TUB: Activity did not occur on this shift TRANSFERS: TUB - SCORE: 0-UNK LOCOMOTION: WALK: Activity did not occur on this shift LOCOMOTION: WALK - SCORE: 0-UNK LOCOMOTION: WHEELCHAIR: Activity did not occur on this shift LOCOMOTION: WHEELCHAIR - SCORE: 0-UNK COMPREHENSION: COMPREHENSION: TYPE: Both COMPREHENSION - STEP 1: Does the patient require help from a person or device, or need extra time to understand complex and a bstract ideas (such as current events, finances, discharge planning, medical issues, relationships, e tc)? No. COMPREHENSION - STEP 2: Does the patient need extra time, require an assistive device (such as glasses for visual comprehensi on or a hearing aid for auditory comprehension) or does s/he have mild difficulty understanding compl ex and abstract information? Yes. COMPREHENSION - SCORE: 6-SINGH EXPRESSION EXPRESSION: TYPE: Both EXPRESSION - STEP 1: Does the patient require help from a person or device, or need extra time expressing complex and abst ract ideas (such as current events, finances, discharge planning, medical issues, relationships, etc) ? No. EXPRESSION - STEP 2: Does the patient need extra time, require an assistive device (such as augmentive communication syste m or a communication board), OR does s/he have mild difficulty expressing complex and abstract ideas (including mild dysarthria or mild word-find problems)? Yes. EXPRESSION - SCORE: 6-SINGH SOCIAL INTERACTION: SOCIAL INTERACTION - STEP 1: Does the patient require a helper to interact with others in social and therapeutic situations? No. SOCIAL INTERACTION - STEP 2: Does the patient need extra time in social situations, OR does s/he interact with staff, other patien ts, and family members ONLY in structured environments, OR does s/he require medication for social in teraction? Yes, patient needs extra time SOCIAL INTERACTION - SCORE: 6-SINGH PROBLEM SOLVING: PROBLEM SOLVING - STEP 1: Does the patient need help from a person or device, or need extra time to solve complex problems such as managing a checking account or confronting interpersonal problems? No. PROBLEM SOLVING - STEP 2: Does the patient require extra time to make decisions or solve problems, OR does s/he have slight dif ficulty reading, initiating, or self-correcting in unfamiliar situations? Yes, patient needs extra ti me. PROBLEM SOLVING - SCORE: 6-SINGH MEMORY: MEMORY - STEP 1: Does the patient need help from a person or device, or need extra time to remember frequently encount ered people, daily routines, and executing requests? No. MEMORY - STEP 2: Does the patient have slight difficulty recognizing frequently encountered people, daily routines, or executing requests without the need for repetition or using self-initiated or environmental cues to remember? Yes. MEMORY - SCORE: 6-SINGH
[2019-02-13] MEDS: SYNTHROID 88 MCG PO SCH (05:25)
[2019-02-13] MEDS: INSULIN -REGULAR HUMAN 50 UNIT/0.5 ML ML SQ SCH ×3 (07:30→16:30)
[2019-02-13] MEDS: SODIUM CHLORIDE 0.9% 10ML INJ IV SCH ×2 (08:00→20:00)
[2019-02-13] MEDS: FOLIC ACID 1 MG TABLET PO SCH (08:13)
[2019-02-13] MEDS: CLOPIDOGREL 75 MG TABLET PO SCH (08:13)
[2019-02-13] MEDS: MULTIVITAMIN TAB PO SCH (08:13)
[2019-02-13] MEDS: BUMETANIDE 2 MG PO SCH (08:14)
[2019-02-13] MEDS: METOPROLOL SUCCINATE 50 MG PO SCH ×2 (08:14→20:55)
[2019-02-13] MEDS: ASPIRIN 81 MG PO SCH (08:15)
[2019-02-13] MEDS: INSULIN GLARGINE 100 UNITS/ML SQ SCH (08:15)
[2019-02-13] MEDS: ISOSORBIDE MONONITRATE PO SCH (08:17)
--- NOTE | 2019-02-13 12:05 | RAD REPORT ---
EXAM DESCRIPTION: US - Extrem Venous W Compress [place] - 02/13/2019 11:58 am CLINICAL HISTORY: pain on lower legs Bilateral leg edema and swelling. COMPARISON: No comparisons TECHNIQUE: Real-time sonographic interrogation of the left and right lower extremity deep venous sys tems was performed. FINDINGS: Normal compressibility, flow augmentation, phasic flow and spontaneous flow is identified in both the left and right lower extremity deep venous systems. IMPRESSION: No sonographic evidence of left or right lower extremity deep venous thrombosis.
[2019-02-13 12:40] LABS: Albumin 3.1 g/dL (3.4-5.0); Bilirubin Total 0.4 mg/dL (0.2-1.0); Magnesium 2.2 mg/dL (1.8-2.4); Phosphorus 4.2 mg/dL (2.5-4.9); Protein, Total 6.8 g/dL (6.4-8.2)
--- NOTE | 2019-02-13 15:20 | FAST ---
SHIFT START DATE/TIME: 02/13/2019 07:00 (CDT) SHIFT END DATE/TIME: 02/13/2019 19:00 (CDT) NAME ALISSON HERNANDEZ DATE OF : 1930 DATE OF ADMISSION: 01/26/2019 13:45 (CODE NUMBER [id number]) PHONE: AGE: 88 SSN# [id number] GENDER: Male ENCOUNTER PHYSICIAN: Dr. Sabino Brewster M.D. ADMISSION DIAGNOSIS: - Stroke 01 - Right Body (Left Brain) (01.2) Acute left inferior cerebellar infarct. EATING: EATING - STEP 1: Does the patient require the assistance of a person or device, or need extra time when eating? Yes. EATING - STEP 2: Does the patient require the assistance of a helper? No, patient only requires an assistive device, O R s/he takes more than reasonable time to eat, OR there is a safety concern, OR s/he requires modifie d food consistency EATING - SCORE: 6-SINGH GROOMING: Comb/brush hair Oral care Wash, rinse, and dry face Wash, rinse, and dry hands GROOMING - STEP 1: Does the patient require the assistance of a person or device, or need extra time when grooming? Yes. GROOMING - STEP 2: Does the patient require the assistance of a helper? No. The patient only requires an assistive devic e, OR takes more than reasonable time to groom, OR there is a concern for safety as the patient groom s GROOMING - SCORE: 6-SINGH BATHING: Activity did not occur on this shift BATHING - SCORE: 0-UNK DRESSING - UPPER BODY: T-shirt/pullover shirt (four steps) ARTICLES SCORE Total number of steps: 4 DRESSING - UPPER BODY - STEP 1: Does the patient require help from a person or device, or need extra time when dressing above the [address]? Yes. DRESSING - UPPER BODY - STEP 2: Does the patient require the assistance of a helper? Yes. DRESSING - UPPER BODY - STEP 3: Does the helper touch the patient while dressing? No. DRESSING - UPPER BODY - SCORE: 5-SUP DRESSING - LOWER BODY: Sock - Left foot (one step) Sock - Right foot (one step) Zippered pants (four steps) ARTICLES SCORE Total number of steps: 6 DRESSING - LOWER BODY - STEP 1: Does the patient require help from a person or device, or need extra time when dressing below the [address]? Yes. DRESSING - LOWER BODY - STEP 2: Does the patient require the assistance of a helper? Yes. DRESSING - LOWER BODY - STEP 3: Does the helper touch the patient while dressing? No. DRESSING - LOWER BODY - SCORE: 5-SUP TOILETING: TOILETING - STEP 1: Does the patient require the assistance of a person or device, or need extra time with toileting? Yes . TOILETING - STEP 2: Does the patient require the assistance of a helper? Yes. TOILETING - STEP 3: How much assistance does the patient require from the helper? Hands-on assistance from the helper TOILETING - STEP 4: Of the 3 tasks: 1) Adjusting clothing prior to use, 2) Cleansing of perineal area, 3) Adjusting clot gregor after use; How many tasks does the patient perform WITHOUT assistance of the helper? Three tasks with steadying assistance from the helper TOILETING - SCORE: 4-MIN BLADDER MANAGEMENT: BLADDER MANAGEMENT - STEP 1: Does the patient control the bladder completely and intentionally without equipment or devices or med ications, and is always continent? No. BLADDER MANAGEMENT - STEP 2: Does the patient require the assistance of a helper? Yes. BLADDER MANAGEMENT - STEP 3: How much assistance does the patient require from the helper? Only set-up of equipment - such as plac ing it within reach of the patient or emptying a device - to maintain either satisfactory voiding pat tern or managing an external device, such as an absorbent pad, ileal device, or catheter BLADDER MANAGEMENT - SCORE: 5-SUP BLADDER MANAGEMENT - FREQUENCY OF ACCIDENTS: BLADDER MANAGEMENT(FA) - STEP 1: How many accidents has the patient had during the current shift? 0 BOWEL MANAGEMENT: BOWEL MANAGEMENT - STEP 1: Does the patient control bowels completely and intentionally without equipment devices or medications AND is always continent? No. BOWEL MANAGEMENT - STEP 2: Does the patient require the assistance of a helper? No, patient requires medication for control such as stool softeners, suppositories, laxatives, enemas, or OTC medications BOWEL MANAGEMENT - SCORE: 6-SINGH BOWEL MANAGEMENT - FREQUENCY OF ACCIDENTS: BOWEL MANAGEMENT(FA) - STEP 1: How many accidents has the patient had during the current shift? 0 TRANSFERS: BED, CHAIR, WHEELCHAIR: TRANSFERS: BED, CHAIR, WHEELCHAIR - STEP 1: Does the patient require assistance of a person or device, or need extra time with bed, chair, or whe elchair transfers? Yes. TRANSFERS: BED, CHAIR, WHEELCHAIR - STEP 2: Does the patient require the assistance of a helper? Yes. TRANSFERS: BED, CHAIR, WHEELCHAIR - STEP 3: How much assistance does the patient require from the helper? Lifting of the legs TRANSFERS: BED, CHAIR, WHEELCHAIR - STEP 4: How many legs does the patient require the helper to lift? one leg TRANSFERS: BED, CHAIR, WHEELCHAIR - SCORE: 4-MIN TRANSFERS: TOILET: TRANSFERS: TOILET - STEP 1: Does the patient require the assistance of a person or device, or need extra time with toilet transfe rs? Yes. TRANSFERS: TOILET - STEP 2: Does the patient require the assistance of a helper? Yes. TRANSFERS: TOILET - STEP 3: How much assistance does the patient require from the helper? Patient performs half or more of the tr ansferring tasks TRANSFERS: TOILET - STEP 4: Does the patient need only incidental help such as contact guard or steadying during toilet transfer? No. Patient needs more than incidental help TRANSFERS: TOILET - SCORE: 3-MOD TRANSFERS: SHOWER: Activity did not occur on this shift TRANSFERS: SHOWER - SCORE: 0-UNK TRANSFERS: TUB: Activity did not occur on this shift TRANSFERS: TUB - SCORE: 0-UNK LOCOMOTION: WALK: Activity did not occur on this shift LOCOMOTION: WALK - SCORE: 0-UNK LOCOMOTION: WHEELCHAIR: LOCOMOTION: WHEELCHAIR - STEP 1: Does the patient need help to go 150 feet in a wheelchair? Yes. LOCOMOTION: WHEELCHAIR - STEP 2: How much assistance does the patient need from the helper? Only supervision, cuing, or coaxing LOCOMOTION: WHEELCHAIR - SCORE: 5-SUP COMPREHENSION: COMPREHENSION: TYPE: Both COMPREHENSION - STEP 1: Does the patient require help from a person or device, or need extra time to understand complex and a bstract ideas (such as current events, finances, discharge planning, medical issues, relationships, e tc)? No. COMPREHENSION - STEP 2: Does the patient need extra time, require an assistive device (such as glasses for visual comprehensi on or a hearing aid for auditory comprehension) or does s/he have mild difficulty understanding compl ex and abstract information? Yes. COMPREHENSION - SCORE: 6-SINGH EXPRESSION EXPRESSION: TYPE: Both EXPRESSION - STEP 1: Does the patient require help from a person or device, or need extra time expressing complex and abst ract ideas (such as current events, finances, discharge planning, medical issues, relationships, etc) ? No. EXPRESSION - STEP 2: Does the patient need extra time, require an assistive device (such as augmentive communication syste m or a communication board), OR does s/he have mild difficulty expressing complex and abstract ideas (including mild dysarthria or mild word-find problems)? Yes. EXPRESSION - SCORE: 6-SINGH SOCIAL INTERACTION: SOCIAL INTERACTION - STEP 1: Does the patient require a helper to interact with others in social and therapeutic situations? No. SOCIAL INTERACTION - STEP 2: Does the patient need extra time in social situations, OR does s/he interact with staff, other patien ts, and family members ONLY in structured environments, OR does s/he require medication for social in teraction? Yes, patient needs extra time SOCIAL INTERACTION - SCORE: 6-SINGH PROBLEM SOLVING: PROBLEM SOLVING - STEP 1: Does the patient need help from a person or device, or need extra time to solve complex problems such as managing a checking account or confronting interpersonal problems? No. PROBLEM SOLVING - STEP 2: Does the patient require extra time to make decisions or solve problems, OR does s/he have slight dif ficulty reading, initiating, or self-correcting in unfamiliar situations? Yes, patient needs extra ti me. PROBLEM SOLVING - SCORE: 6-SINGH MEMORY: MEMORY - STEP 1: Does the patient need help from a person or device, or need extra time to remember frequently encount ered people, daily routines, and executing requests? No. MEMORY - STEP 2: Does the patient have slight difficulty recognizing frequently encountered people, daily routines, or executing requests without the need for repetition or using self-initiated or environmental cues to remember? Yes. MEMORY - SCORE: 6-SINGH SIGNATURE PANEL: The following modified sections: Eating - Score, Grooming - Score, Bathing - Score, Dressing - Upper Body - Score, Dressing - Lower Body - Score, Toileting - Score, Bladder Management - Score, Bowel Man agement - Score, Transfers: Bed, Chair, Wheelchair - Score, Transfers: Toilet - Score, Transfers: Iris wer - Score, Transfers: Tub - Score, Locomotion: Walk - Score, Locomotion: Wheelchair - Score, Compre hension - Score, Expression - Score, Social Interaction - Score, Problem Solving - Score, Memory - Sc ore were [electronically] signed by Jennifer Adame C.N.A. on Sat Feb 13 2019 15:18:58 [facility]-[id number] (Centra l Daylight Time)
--- NOTE | 2019-02-13 15:56 | PN ---
Date of Progress Note: 02/13/2019 Subjective: The patient was seen this morning for followup. No new complaints or problems reported. Lying in bed. Not in distress. Objective: Vital Signs: Reviewed. HEENT: Unremarkable. Lungs: Clear to auscultation. Heart: Sounds normal. Abdomen: Soft. Bowel sounds normal. No guarding, rigidity, tenderness, or distention. Extremities: No leg edema. Impression: 1. Diabetes mellitus, uncontrolled. 2. Hypertension. 3. Coronary artery disease. 4. Stroke. Plan: Fingerstick blood sugar readings reviewed. This morning, blood sugar was 162. Yesterday morning, his blood sugar was low, which is not unusual for him, but nurse did not give him long-acting Lantus insulin yesterday morning, which he should have received it like every morning. Today, I did tell the nurse to make sure to continue his Lantus insulin every morning the way it is ordered and continue sliding scale insulin at breakfast time and lunch time, and from now we will not give any sliding scale insulin at dinnertime that we were giving so far. The patient should not receive any insulin at bedtime, and unfortunately last night, there was another nurse who ended up giving bedtime insulin, even though there was a clear-cut instruction on not to give it. We will monitor fingerstick blood sugar, and I will see him tomorrow for followup. AUNG/MODL Voice ID: [id number] Report ID: [id number] LINDA
--- NOTE | 2019-02-13 16:51 | PN ---
Date of Progress Note: 02/12/2019 Chief Complaint: Chronic kidney, cardiorenal syndrome, edema. The patient is complaining of shortne ss of breath, leg edema. He has been treated with diuretics for cardiorenal syndrome. The patient h as underlying chronic kidney disease stage 3. There is high BUN and creatinine ratio secondary to pr erenal azotemia, acute kidney injury. BUN is 56, creatinine is 2.2. Review of Systems: Denies PND, orthopnea. He is complaining of generalized weakness, fatigue. Physical Examination: Lungs: Clear to auscultation bilaterally. Heart: S1, S2. Abdomen: Soft, benign. Extremities: Edema 1+ in both pretibial area. Laboratory Data: BUN 56, creatinine 2.2, sodium 137, potassium 4.3, bicarbonate 28, calcium 8.9. 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 Continue Lasix for volemia control. The patient has fluid overload and leg edema secondary to congestive heart failure and lymphedema. 2.Hypertension. Blood pressure is controlled. Continue current treatment. 3.Fluid overload. Continue Bumex. Monitor electrolytes. 4.Edema secondary to congestive heart failure associated with cardiorenal syndrome. Bumex dose was adjusted. Continue current treatment with beta clotilde for congestive heart failure. 5.Benign prostatic hyperplasia. The patient will continue Flomax. Monitor for any evidence of urin lizbeth retention. PAULETTE/MODL Voice ID: [id number] Report ID: [id number]
[2019-02-13] MEDS: BUMETANIDE PO SCH (17:06)
--- NOTE | 2019-02-13 17:27 | PN ---
Date of Progress Note: 02/13/2019 Chief Complaint: Abvxg-ln-eeoxbql kidney injury, prerenal azotemia, cardiorenal syndrome. History Of Present Illness: Renal function has been stable, although there is high BUN and creatinin e ratio. Blood work is obtained today to rule out electrolyte abnormalities. The patient is complai hermes of left leg cramps and pain. Plan is to do venous Doppler to rule out DVT. Review of Systems: Denies PND, orthopnea. He is complaining of a cramp in both legs, greater in the left lower extremit y. Physical Examination: Lungs: Few crackles at bases. Heart: S1 and S2. Abdomen: Soft, benign. Extremities: Edema 1 to 2+ in both legs. Impression And Plan: 1.Chronic kidney disease stage 3/4, advancing to stage 4, associated with benign nephrosclerosis car diorenal syndrome. The patient will have a blood work to assess renal function and electrolyte abnor malities. Continue Bumex. 2.Hypertension. Continue beta-clotilde. 3.Diabetes mellitus with renal manifestation. The patient is on insulin. Monitor proteinuria. 4.Edema. Continue low-sodium diet. Plan is to check a venous Doppler for DVT. Continue Bumex with previous dose. 5.History of cerebrovascular accident. The patient is undergoing PT/OT. EB/MODL Voice ID: [id number] Report ID: [id number]
[2019-02-13] MEDS: SIMVASTATIN 80 MG PO SCH (20:52)
[2019-02-13] MEDS: TAMSULOSIN 0.4 MG PO SCH (20:52)
[2019-02-13] MEDS: ENOXAPARIN 30 MG/0.3 ML SQ SCH (20:53)
[2019-02-13] MEDS ORDERED: INSULIN -REGULAR HUMAN 50 UNIT/0.5 ML ML SQ ONE (22:45)
--- NOTE | 2019-02-14 03:07 | FAST ---
SHIFT START DATE/TIME: 02/13/2019 19:00 (CDT) SHIFT END DATE/TIME: 02/14/2019 07:00 (CDT) NAME ALISSON HERNANDEZ DATE OF : 1930 DATE OF ADMISSION: 01/26/2019 13:45 (HEEL STIFFENER) PHONE: AGE: 88 SSN# [id number] GENDER: Male ENCOUNTER PHYSICIAN: Dr. Sabino Brewster M.D. ADMISSION DIAGNOSIS: - Stroke 01 - Right Body (Left Brain) (01.2) Acute left inferior cerebellar infarct. EATING: Activity did not occur on this shift EATING - SCORE: 0-UNK GROOMING: Oral care Wash, rinse, and dry hands GROOMING - STEP 1: Does the patient require the assistance of a person or device, or need extra time when grooming? Yes. GROOMING - STEP 2: Does the patient require the assistance of a helper? Yes. GROOMING - STEP 3: How much assistance does the patient require from the helper? Only prior equipment preparation/set up from the helper GROOMING - SCORE: 5-SUP BATHING: Activity did not occur on this shift BATHING - SCORE: 0-UNK DRESSING - UPPER BODY: Patient is not dressing in public clothing ARTICLES SCORE Total number of steps: 0 DRESSING - UPPER BODY - SCORE: 0-UNK DRESSING - LOWER BODY: Patient is not dressing in public clothing ARTICLES SCORE Total number of steps: 0 DRESSING - LOWER BODY - SCORE: 0-UNK TOILETING: TOILETING - STEP 1: Does the patient require the assistance of a person or device, or need extra time with toileting? Yes . TOILETING - STEP 2: Does the patient require the assistance of a helper? Yes. TOILETING - STEP 3: How much assistance does the patient require from the helper? Hands-on assistance from the helper TOILETING - STEP 4: Of the 3 tasks: 1) Adjusting clothing prior to use, 2) Cleansing of perineal area, 3) Adjusting clot gregor after use; How many tasks does the patient perform WITHOUT assistance of the helper? One task TOILETING - SCORE: 2-MAX BLADDER MANAGEMENT: BLADDER MANAGEMENT - STEP 1: Does the patient control the bladder completely and intentionally without equipment or devices or med ications, and is always continent? No. BLADDER MANAGEMENT - STEP 2: Does the patient require the assistance of a helper? Yes. BLADDER MANAGEMENT - STEP 3: How much assistance does the patient require from the helper? Only supervision, stand-by, cuing, or c oaxing BLADDER MANAGEMENT - SCORE: 5-SUP BOWEL MANAGEMENT: BOWEL MANAGEMENT - STEP 1: Does the patient control bowels completely and intentionally without equipment devices or medications AND is always continent? No. BOWEL MANAGEMENT - STEP 2: Does the patient require the assistance of a helper? No, patient requires medication for control such as stool softeners, suppositories, laxatives, enemas, or OTC medications BOWEL MANAGEMENT - SCORE: 6-SINGH TRANSFERS: BED, CHAIR, WHEELCHAIR: TRANSFERS: BED, CHAIR, WHEELCHAIR - STEP 1: Does the patient require assistance of a person or device, or need extra time with bed, chair, or whe elchair transfers? Yes. TRANSFERS: BED, CHAIR, WHEELCHAIR - STEP 2: Does the patient require the assistance of a helper? Yes. TRANSFERS: BED, CHAIR, WHEELCHAIR - STEP 3: How much assistance does the patient require from the helper? Lifting of the legs TRANSFERS: BED, CHAIR, WHEELCHAIR - STEP 4: How many legs does the patient require the helper to lift? both legs TRANSFERS: BED, CHAIR, WHEELCHAIR - SCORE: 3-MOD TRANSFERS: TOILET: TRANSFERS: TOILET - STEP 1: Does the patient require the assistance of a person or device, or need extra time with toilet transfe rs? Yes. TRANSFERS: TOILET - STEP 2: Does the patient require the assistance of a helper? Yes. TRANSFERS: TOILET - STEP 3: How much assistance does the patient require from the helper? Patient performs half or more of the tr ansferring tasks TRANSFERS: TOILET - STEP 4: Does the patient need only incidental help such as contact guard or steadying during toilet transfer? Yes. TRANSFERS: TOILET - SCORE: 4-MIN TRANSFERS: SHOWER: Activity did not occur on this shift TRANSFERS: SHOWER - SCORE: 0-UNK TRANSFERS: TUB: Activity did not occur on this shift TRANSFERS: TUB - SCORE: 0-UNK LOCOMOTION: WALK: Activity did not occur on this shift LOCOMOTION: WALK - SCORE: 0-UNK LOCOMOTION: WHEELCHAIR: Activity did not occur on this shift LOCOMOTION: WHEELCHAIR - SCORE: 0-UNK COMPREHENSION: COMPREHENSION: TYPE: Both COMPREHENSION - STEP 1: Does the patient require help from a person or device, or need extra time to understand complex and a bstract ideas (such as current events, finances, discharge planning, medical issues, relationships, e tc)? No. COMPREHENSION - STEP 2: Does the patient need extra time, require an assistive device (such as glasses for visual comprehensi on or a hearing aid for auditory comprehension) or does s/he have mild difficulty understanding compl ex and abstract information? Yes. COMPREHENSION - SCORE: 6-SINGH EXPRESSION EXPRESSION: TYPE: Both EXPRESSION - STEP 1: Does the patient require help from a person or device, or need extra time expressing complex and abst ract ideas (such as current events, finances, discharge planning, medical issues, relationships, etc) ? No. EXPRESSION - STEP 2: Does the patient need extra time, require an assistive device (such as augmentive communication syste m or a communication board), OR does s/he have mild difficulty expressing complex and abstract ideas (including mild dysarthria or mild word-find problems)? Yes. EXPRESSION - SCORE: 6-SINGH SOCIAL INTERACTION: SOCIAL INTERACTION - STEP 1: Does the patient require a helper to interact with others in social and therapeutic situations? No. SOCIAL INTERACTION - STEP 2: Does the patient need extra time in social situations, OR does s/he interact with staff, other patien ts, and family members ONLY in structured environments, OR does s/he require medication for social in teraction? Yes, patient needs extra time SOCIAL INTERACTION - SCORE: 6-SINGH PROBLEM SOLVING: PROBLEM SOLVING - STEP 1: Does the patient need help from a person or device, or need extra time to solve complex problems such as managing a checking account or confronting interpersonal problems? Yes. PROBLEM SOLVING - STEP 2: Does the patient solve basic routine problems half or more of the time? Yes. PROBLEM SOLVING - STEP 3: How often does the patient need help to solve basic routine problems? 10%-24% of the time PROBLEM SOLVING - SCORE: 4-MIN MEMORY: MEMORY - STEP 1: Does the patient need help from a person or device, or need extra time to remember frequently encount ered people, daily routines, and executing requests? No. MEMORY - STEP 2: Does the patient have slight difficulty recognizing frequently encountered people, daily routines, or executing requests without the need for repetition or using self-initiated or environmental cues to remember? Yes. MEMORY - SCORE: 6-SINGH SIGNATURE PANEL: The following modified sections: Eating - Score, Grooming - Score, Dressing - Upper Body - Score, Ben ssing - Lower Body - Score, Toileting - Score, Bladder Management - Score, Bowel Management - Score, Transfers: Bed, Chair, Wheelchair - Score, Transfers: Toilet - Score, Transfers: Shower - Score, Aquino sfers: Tub - Score, Locomotion: Walk - Score, Locomotion: Wheelchair - Score, Comprehension - Score, Expression - Score, Social Interaction - Score, Problem Solving - Score, Memory - Score were [electro nically] signed by Margi Collier CNA on FriFeb 14 2019 03:06:43 GMT-0500 (Central Daylight Time)
[2019-02-14] MEDS: SYNTHROID 88 MCG PO SCH (07:07)
[2019-02-14] MEDS: SODIUM CHLORIDE 0.9% 10ML INJ IV SCH ×2 (08:00→20:00)
[2019-02-14] MEDS: MULTIVITAMIN TAB PO SCH (08:12)
[2019-02-14] MEDS: FOLIC ACID 1 MG TABLET PO SCH (08:12)
[2019-02-14] MEDS: CLOPIDOGREL 75 MG TABLET PO SCH (08:12)
[2019-02-14] MEDS: BUMETANIDE 2 MG PO SCH (08:12)
[2019-02-14] MEDS: ISOSORBIDE MONONITRATE PO SCH (08:13)
[2019-02-14] MEDS: ASPIRIN 81 MG PO SCH (08:14)
[2019-02-14] MEDS: METOPROLOL SUCCINATE 50 MG PO SCH ×2 (08:15→20:39)
[2019-02-14] MEDS: INSULIN -REGULAR HUMAN 50 UNIT/0.5 ML ML SQ SCH ×3 (08:51→12:29)
[2019-02-14] MEDS: INSULIN GLARGINE 100 UNITS/ML SQ SCH (08:51)
[2019-02-14] MEDS ORDERED: GLUCAGON 1 MG/VIAL IM PRN ×2 (11:35→11:37)
[2019-02-14] MEDS ORDERED: D50W 25 GM/50 ML SYRINGE IV PRN ×2 (11:35→11:37)
--- NOTE | 2019-02-14 16:05 | PN ---
Date of Progress Note: 02/14/2019 Subjective: The patient was seen this morning for followup. No new complaints or problems reported by patient. He was sitting in chair in dining room. Fingerstick blood sugar readings reviewed. Objective: Vital Signs: Reviewed. HEENT: Unremarkable. Lungs: Clear to auscultation. Heart: Sounds normal. Abdomen: Soft. Bowel sounds normal. No guarding, rigidity, tenderness, distention. Extremities: No leg edema. Laboratory Data: Fingerstick blood sugar readings reviewed. Venous Doppler of leg was negative for DVT done yesterday per pipelaying fitter. This was done because the patient was complaining of some leg c ramping to pipelaying fitter. Impression: 1.Diabetes mellitus, uncontrolled. 2.Coronary artery disease. 3.Hypertension. 4.Stroke. Plan: We will continue current medication and continue Lantus 60 units subcutaneous injection daily in morning and regular insulin per sliding scale at breakfast and lunch time. As of yesterday, [facility] insulin after lunch time and this morning, blood sugar in the 300 range. We will see how his blood sugar was yesterday and depending on that, we will decide further dose adjustment on insulin as well as diet order, especially bedtime snack order. AUNG/MODL Voice ID: [id number] Report ID: [id number]
[2019-02-14] MEDS: ENOXAPARIN 30 MG/0.3 ML SQ SCH (20:39)
[2019-02-14] MEDS: SIMVASTATIN 80 MG PO SCH (20:40)
[2019-02-14] MEDS: TAMSULOSIN 0.4 MG PO SCH (20:40)
[2019-02-14] MEDS ORDERED: INSULIN -REGULAR HUMAN 50 UNIT/0.5 ML ML SQ ONE (21:37)
--- NOTE | 2019-02-15 01:33 | FAST ---
SHIFT START DATE/TIME: 02/14/2019 19:00 (CDT) SHIFT END DATE/TIME: 02/15/2019 07:00 (CDT) NAME ALISSON HERNANDEZ DATE OF : 1930 DATE OF ADMISSION: 01/26/2019 13:45 (CHURN TENDER) PHONE: AGE: 88 SSN# [id number] GENDER: Male ENCOUNTER PHYSICIAN: Dr. Sabino Brewster M.D. ADMISSION DIAGNOSIS: - Stroke 01 - Right Body (Left Brain) (01.2) Acute left inferior cerebellar infarct. EATING: Activity did not occur on this shift EATING - SCORE: 0-UNK GROOMING: Oral care Wash, rinse, and dry hands GROOMING - STEP 1: Does the patient require the assistance of a person or device, or need extra time when grooming? Yes. GROOMING - STEP 2: Does the patient require the assistance of a helper? Yes. GROOMING - STEP 3: How much assistance does the patient require from the helper? Only prior equipment preparation/set up from the helper GROOMING - SCORE: 5-SUP BATHING: Activity did not occur on this shift BATHING - SCORE: 0-UNK DRESSING - UPPER BODY: Patient is not dressing in public clothing ARTICLES SCORE Total number of steps: 0 DRESSING - UPPER BODY - SCORE: 0-UNK DRESSING - LOWER BODY: Patient is not dressing in public clothing ARTICLES SCORE Total number of steps: 0 DRESSING - LOWER BODY - SCORE: 0-UNK TOILETING: TOILETING - STEP 1: Does the patient require the assistance of a person or device, or need extra time with toileting? Yes . TOILETING - STEP 2: Does the patient require the assistance of a helper? Yes. TOILETING - STEP 3: How much assistance does the patient require from the helper? Hands-on assistance from the helper TOILETING - STEP 4: Of the 3 tasks: 1) Adjusting clothing prior to use, 2) Cleansing of perineal area, 3) Adjusting clot gregor after use; How many tasks does the patient perform WITHOUT assistance of the helper? Two tasks TOILETING - SCORE: 3-MOD BLADDER MANAGEMENT: BLADDER MANAGEMENT - STEP 1: Does the patient control the bladder completely and intentionally without equipment or devices or med ications, and is always continent? No. BLADDER MANAGEMENT - STEP 2: Does the patient require the assistance of a helper? Yes. BLADDER MANAGEMENT - STEP 3: How much assistance does the patient require from the helper? Only supervision, stand-by, cuing, or c oaxing BLADDER MANAGEMENT - SCORE: 5-SUP BOWEL MANAGEMENT: BOWEL MANAGEMENT - STEP 1: Does the patient control bowels completely and intentionally without equipment devices or medications AND is always continent? No. BOWEL MANAGEMENT - STEP 2: Does the patient require the assistance of a helper? No, patient requires medication for control such as stool softeners, suppositories, laxatives, enemas, or OTC medications BOWEL MANAGEMENT - SCORE: 6-SINGH TRANSFERS: BED, CHAIR, WHEELCHAIR: TRANSFERS: BED, CHAIR, WHEELCHAIR - STEP 1: Does the patient require assistance of a person or device, or need extra time with bed, chair, or whe elchair transfers? Yes. TRANSFERS: BED, CHAIR, WHEELCHAIR - STEP 2: Does the patient require the assistance of a helper? Yes. TRANSFERS: BED, CHAIR, WHEELCHAIR - STEP 3: How much assistance does the patient require from the helper? Steadying/guiding assistance TRANSFERS: BED, CHAIR, WHEELCHAIR - SCORE: 4-MIN TRANSFERS: TOILET: TRANSFERS: TOILET - STEP 1: Does the patient require the assistance of a person or device, or need extra time with toilet transfe rs? Yes. TRANSFERS: TOILET - STEP 2: Does the patient require the assistance of a helper? Yes. TRANSFERS: TOILET - STEP 3: How much assistance does the patient require from the helper? Patient performs half or more of the tr ansferring tasks TRANSFERS: TOILET - STEP 4: Does the patient need only incidental help such as contact guard or steadying during toilet transfer? Yes. TRANSFERS: TOILET - SCORE: 4-MIN TRANSFERS: SHOWER: Activity did not occur on this shift TRANSFERS: SHOWER - SCORE: 0-UNK TRANSFERS: TUB: Activity did not occur on this shift TRANSFERS: TUB - SCORE: 0-UNK LOCOMOTION: WALK: Activity did not occur on this shift LOCOMOTION: WALK - SCORE: 0-UNK LOCOMOTION: WHEELCHAIR: Activity did not occur on this shift LOCOMOTION: WHEELCHAIR - SCORE: 0-UNK COMPREHENSION: COMPREHENSION: TYPE: Both COMPREHENSION - STEP 1: Does the patient require help from a person or device, or need extra time to understand complex and a bstract ideas (such as current events, finances, discharge planning, medical issues, relationships, e tc)? Yes. COMPREHENSION - STEP 2: Does the patient require help to understand questions or statements about basic needs or ideas (such as hunger, thirst, sleep, safety, daily schedule, room location, or discomfort) half or more of the t ld? No. COMPREHENSION - STEP 3: How often does the patient need help to understand directions and conversation about basic needs? 10% - 24% of the time COMPREHENSION - SCORE: 4-MIN EXPRESSION EXPRESSION: TYPE: Both EXPRESSION - STEP 1: Does the patient require help from a person or device, or need extra time expressing complex and abst ract ideas (such as current events, finances, discharge planning, medical issues, relationships, etc) ? No. EXPRESSION - STEP 2: Does the patient need extra time, require an assistive device (such as augmentive communication syste m or a communication board), OR does s/he have mild difficulty expressing complex and abstract ideas (including mild dysarthria or mild word-find problems)? Yes. EXPRESSION - SCORE: 6-SINGH SOCIAL INTERACTION: SOCIAL INTERACTION - STEP 1: Does the patient require a helper to interact with others in social and therapeutic situations? No. SOCIAL INTERACTION - STEP 2: Does the patient need extra time in social situations, OR does s/he interact with staff, other patien ts, and family members ONLY in structured environments, OR does s/he require medication for social in teraction? Yes, patient needs extra time SOCIAL INTERACTION - SCORE: 6-SINGH PROBLEM SOLVING: PROBLEM SOLVING - STEP 1: Does the patient need help from a person or device, or need extra time to solve complex problems such as managing a checking account or confronting interpersonal problems? No. PROBLEM SOLVING - STEP 2: Does the patient require extra time to make decisions or solve problems, OR does s/he have slight dif ficulty reading, initiating, or self-correcting in unfamiliar situations? Yes, patient needs extra ti me. PROBLEM SOLVING - SCORE: 6-SINGH MEMORY: MEMORY - STEP 1: Does the patient need help from a person or device, or need extra time to remember frequently encount ered people, daily routines, and executing requests? No. MEMORY - STEP 2: Does the patient have slight difficulty recognizing frequently encountered people, daily routines, or executing requests without the need for repetition or using self-initiated or environmental cues to remember? Yes. MEMORY - SCORE: 6-SINGH SIGNATURE PANEL: The following modified sections: Eating - Score, Grooming - Score, Dressing - Upper Body - Score, Ben ssing - Lower Body - Score, Toileting - Score, Bladder Management - Score, Bowel Management - Score, Transfers: Bed, Chair, Wheelchair - Score, Transfers: Toilet - Score, Transfers: Shower - Score, Aquino sfers: Tub - Score, Locomotion: Walk - Score, Locomotion: Wheelchair - Score, Comprehension - Score, Expression - Score, Social Interaction - Score, Problem Solving - Score, Memory - Score were [electro nically] signed by Margi Collier CNA on FriFeb 15 2019 01:32:58 T-0500 (Central Daylight Time)
--- NOTE | 2019-02-15 02:20 | PN ---
Date of Progress Note: 02/14/2019 Chief Complaint: Chronic kidney disease stage 3. 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 The patient has associated benign nephrosclerosis, cardiorenal syndrome. He was complaining of lower ex tremity cramping and had venous Doppler done which was negative for DVT. Review of Systems: Denies fever, chills. Physical Examination: Lungs: Clear to auscultation bilaterally. Heart: S1, S2. Abdomen: Soft, benign. Extremities: Slight edema. 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 Continue low-sodium diet. Continue Bumex. 2.Hypertension. The patient is on beta clotilde. Continue current treatment. 3.Diabetes mellitus with renal manifestation. Continue insulin therapy. 4.Edema. Deep vein thrombosis was ruled out by venous Doppler. 5.History of cerebrovascular accident. Continue PT, OT. PAULETTE/AGUILA Voice ID: [id number] Report ID: [id number]
[2019-02-15] MEDS: SYNTHROID 88 MCG PO SCH (06:23)
[2019-02-15] MEDS: ASPIRIN 81 MG PO SCH (07:25)
[2019-02-15] MEDS: ISOSORBIDE MONONITRATE PO SCH (07:25)
[2019-02-15] MEDS: BUMETANIDE 2 MG PO SCH (07:26)
[2019-02-15] MEDS: METOPROLOL SUCCINATE 50 MG PO SCH ×2 (07:28→20:33)
[2019-02-15] MEDS: SODIUM CHLORIDE 0.9% 10ML INJ IV SCH ×2 (07:30→20:33)
[2019-02-15] MEDS: MULTIVITAMIN TAB PO SCH (07:30)
[2019-02-15] MEDS: INSULIN GLARGINE 100 UNITS/ML SQ SCH (07:31)
[2019-02-15] MEDS: FOLIC ACID 1 MG TABLET PO SCH (07:31)
[2019-02-15] MEDS: CLOPIDOGREL 75 MG TABLET PO SCH (07:31)
[2019-02-15] MEDS: INSULIN -REGULAR HUMAN 50 UNIT/0.5 ML ML SQ SCH ×2 (07:43→11:24)
[2019-02-15] MEDS ORDERED: D50W 25 GM/50 ML SYRINGE IV PRN (07:48)
[2019-02-15] MEDS ORDERED: GLUCAGON 1 MG/VIAL IM PRN (07:48)
--- NOTE | 2019-02-15 13:50 | FAST ---
SHIFT START DATE/TIME: 02/15/2019 07:00 (CDT) SHIFT END DATE/TIME: 02/15/2019 19:00 (CDT) NAME ALISSON HERNANDEZ DATE OF : 1930 DATE OF ADMISSION: 01/26/2019 13:45 (DIRECTOR OF BLOOD) PHONE: AGE: 88 N# [id number] GENDER: Male ENCOUNTER PHYSICIAN: Dr. Sabino Brewster M.D. ADMISSION DIAGNOSIS: - Stroke 01 - Right Body (Left Brain) (01.2) Acute left inferior cerebellar infarct. EATING: EATING - STEP 1: Does the patient require the assistance of a person or device, or need extra time when eating? Yes. EATING - STEP 2: Does the patient require the assistance of a helper? Yes. EATING - STEP 3: Does the patient perform half or more of the eating tasks? Yes. EATING - STEP 4: Does the patient need only supervision, cuing, coaxing OR help to apply an orthosis OR help to cut fo od, open containers, pour liquids, or butter bread? Yes. EATING - SCORE: 5-SUP GROOMING: Comb/brush hair Oral care Wash, rinse, and dry face Wash, rinse, and dry hands GROOMING - STEP 1: Does the patient require the assistance of a person or device, or need extra time when grooming? Yes. GROOMING - STEP 2: Does the patient require the assistance of a helper? Yes. GROOMING - STEP 3: How much assistance does the patient require from the helper? Only prior equipment preparation/set up from the helper GROOMING - SCORE: 5-SUP BATHING: Activity did not occur on this shift BATHING - SCORE: 0-UNK DRESSING - UPPER BODY: Activity did not occur on this shift ARTICLES SCORE Total number of steps: 0 DRESSING - UPPER BODY - SCORE: 0-UNK DRESSING - LOWER BODY: Activity did not occur on this shift ARTICLES SCORE Total number of steps: 0 DRESSING - LOWER BODY - SCORE: 0-UNK TOILETING: TOILETING - STEP 1: Does the patient require the assistance of a person or device, or need extra time with toileting? Yes . TOILETING - STEP 2: Does the patient require the assistance of a helper? Yes. TOILETING - STEP 3: How much assistance does the patient require from the helper? Hands-on assistance from the helper TOILETING - STEP 4: Of the 3 tasks: 1) Adjusting clothing prior to use, 2) Cleansing of perineal area, 3) Adjusting clot gregor after use; How many tasks does the patient perform WITHOUT assistance of the helper? Two tasks TOILETING - SCORE: 3-MOD BLADDER MANAGEMENT: BLADDER MANAGEMENT - STEP 1: Does the patient control the bladder completely and intentionally without equipment or devices or med ications, and is always continent? No. BLADDER MANAGEMENT - STEP 2: Does the patient require the assistance of a helper? No, patient requires and independently uses an a ssistive device, such as a urinal, bedpan, bedside commode, catheter, absorbent pad, or collecting de vice BLADDER MANAGEMENT - SCORE: 6-SINGH BOWEL MANAGEMENT: Activity did not occur on this shift BOWEL MANAGEMENT - SCORE: 7-IND TRANSFERS: BED, CHAIR, WHEELCHAIR: TRANSFERS: BED, CHAIR, WHEELCHAIR - STEP 1: Does the patient require assistance of a person or device, or need extra time with bed, chair, or whe elchair transfers? Yes. TRANSFERS: BED, CHAIR, WHEELCHAIR - STEP 2: Does the patient require the assistance of a helper? Yes. TRANSFERS: BED, CHAIR, WHEELCHAIR - STEP 3: How much assistance does the patient require from the helper? Steadying/guiding assistance TRANSFERS: BED, CHAIR, WHEELCHAIR - SCORE: 4-MIN TRANSFERS: TOILET: TRANSFERS: TOILET - STEP 1: Does the patient require the assistance of a person or device, or need extra time with toilet transfe rs? Yes. TRANSFERS: TOILET - STEP 2: Does the patient require the assistance of a helper? Yes. TRANSFERS: TOILET - STEP 3: How much assistance does the patient require from the helper? Patient performs half or more of the tr ansferring tasks TRANSFERS: TOILET - STEP 4: Does the patient need only incidental help such as contact guard or steadying during toilet transfer? Yes. TRANSFERS: TOILET - SCORE: 4-MIN TRANSFERS: SHOWER: Activity did not occur on this shift TRANSFERS: SHOWER - SCORE: 0-UNK TRANSFERS: TUB: Activity did not occur on this shift TRANSFERS: TUB - SCORE: 0-UNK LOCOMOTION: WALK: Activity did not occur on this shift LOCOMOTION: WALK - SCORE: 0-UNK LOCOMOTION: WHEELCHAIR: Activity did not occur on this shift LOCOMOTION: WHEELCHAIR - SCORE: 0-UNK COMPREHENSION: COMPREHENSION: TYPE: Both COMPREHENSION - STEP 1: Does the patient require help from a person or device, or need extra time to understand complex and a bstract ideas (such as current events, finances, discharge planning, medical issues, relationships, e tc)? No. COMPREHENSION - STEP 2: Does the patient need extra time, require an assistive device (such as glasses for visual comprehensi on or a hearing aid for auditory comprehension) or does s/he have mild difficulty understanding compl ex and abstract information? Yes. COMPREHENSION - SCORE: 6-SINGH EXPRESSION EXPRESSION: TYPE: Both EXPRESSION - STEP 1: Does the patient require help from a person or device, or need extra time expressing complex and abst ract ideas (such as current events, finances, discharge planning, medical issues, relationships, etc) ? No. EXPRESSION - STEP 2: Does the patient need extra time, require an assistive device (such as augmentive communication syste m or a communication board), OR does s/he have mild difficulty expressing complex and abstract ideas (including mild dysarthria or mild word-find problems)? Yes. EXPRESSION - SCORE: 6-SINGH SOCIAL INTERACTION: SOCIAL INTERACTION - STEP 1: Does the patient require a helper to interact with others in social and therapeutic situations? No. SOCIAL INTERACTION - STEP 2: Does the patient need extra time in social situations, OR does s/he interact with staff, other patien ts, and family members ONLY in structured environments, OR does s/he require medication for social in teraction? Yes, patient needs extra time SOCIAL INTERACTION - SCORE: 6-SINGH PROBLEM SOLVING: PROBLEM SOLVING - STEP 1: Does the patient need help from a person or device, or need extra time to solve complex problems such as managing a checking account or confronting interpersonal problems? No. PROBLEM SOLVING - STEP 2: Does the patient require extra time to make decisions or solve problems, OR does s/he have slight dif ficulty reading, initiating, or self-correcting in unfamiliar situations? Yes, patient needs extra ti me. PROBLEM SOLVING - SCORE: 6-SINGH MEMORY: MEMORY - STEP 1: Does the patient need help from a person or device, or need extra time to remember frequently encount ered people, daily routines, and executing requests? No. MEMORY - STEP 2: Does the patient have slight difficulty recognizing frequently encountered people, daily routines, or executing requests without the need for repetition or using self-initiated or environmental cues to remember? Yes. MEMORY - SCORE: 6-SINGH SIGNATURE PANEL: The following modified sections: Eating - Score, Bathing - Score, Grooming - Score, Dressing - Upper Body - Score, Dressing - Lower Body - Score, Toileting - Score, Bladder Management - Score, Bowel Man agement - Score, Transfers: Bed, Chair, Wheelchair - Score, Transfers: Toilet - Score, Transfers: Iris wer - Score, Transfers: Tub - Score, Locomotion: Walk - Score, Locomotion: Wheelchair - Score, Compre hension - Score, Expression - Score, Social Interaction - Score, Problem Solving - Score, Memory - Sc ore were [electronically] signed by Barrera Liang on FriFeb 15 2019 13:49:42 GMT-0500 (Central Daylight Time)
--- NOTE | 2019-02-15 16:29 | FAST ---
ENCOUNTER DATE AND TIME: 02/15/2019 08:00 (CDT) NAME ALISSON HERNANDEZ DATE OF : 1930 DATE OF ADMISSION: 01/26/2019 13:45 (TOPOGRAPHICAL FIELD ASSISTANT) PHONE: AGE: 88 N# [id number] GENDER: Male ENCOUNTER PHYSICIAN: Dr. Sabino Brewster M.D. ADMISSION DIAGNOSIS: - Stroke 01 - Right Body (Left Brain) (01.2) Acute left inferior cerebellar infarct. EATING: Activity did not occur on this shift EATING - SCORE: 0-UNK GROOMING: Activity did not occur on this shift GROOMING - SCORE: 0-UNK BATHING: Activity did not occur on this shift BATHING - SCORE: 0-UNK DRESSING - UPPER BODY: Activity did not occur on this shift Patient is not dressing in public clothing ARTICLES SCORE Total number of steps: 0 DRESSING - UPPER BODY - SCORE: 0-UNK DRESSING - LOWER BODY: Activity did not occur on this shift Patient is not dressing in public clothing ARTICLES SCORE Total number of steps: 0 DRESSING - LOWER BODY - SCORE: 0-UNK TOILETING: Activity did not occur on this shift TOILETING - SCORE: 0-UNK BLADDER MANAGEMENT: Activity did not occur on this shift BLADDER MANAGEMENT - SCORE: 7-IND BOWEL MANAGEMENT: Activity did not occur on this shift BOWEL MANAGEMENT - SCORE: 7-IND TRANSFERS: BED, CHAIR, WHEELCHAIR: TRANSFERS: BED, CHAIR, WHEELCHAIR - STEP 1: Does the patient require assistance of a person or device, or need extra time with bed, chair, or whe elchair transfers? Yes. TRANSFERS: BED, CHAIR, WHEELCHAIR - STEP 2: Does the patient require the assistance of a helper? Yes. TRANSFERS: BED, CHAIR, WHEELCHAIR - STEP 3: How much assistance does the patient require from the helper? Steadying/guiding assistance TRANSFERS: BED, CHAIR, WHEELCHAIR - SCORE: 4-MIN TRANSFERS: TOILET: TRANSFERS: TOILET - STEP 1: Does the patient require the assistance of a person or device, or need extra time with toilet transfe rs? Yes. TRANSFERS: TOILET - STEP 2: Does the patient require the assistance of a helper? Yes. TRANSFERS: TOILET - STEP 3: How much assistance does the patient require from the helper? Patient performs half or more of the tr ansferring tasks TRANSFERS: TOILET - STEP 4: Does the patient need only incidental help such as contact guard or steadying during toilet transfer? Yes. TRANSFERS: TOILET - SCORE: 4-MIN TRANSFERS: SHOWER: Activity did not occur on this shift TRANSFERS: SHOWER - SCORE: 0-UNK TRANSFERS: TUB: Activity did not occur on this shift TRANSFERS: TUB - SCORE: 0-UNK LOCOMOTION: WALK: LOCOMOTION: WALK - STEP 1: Does the patient need help from a person or device, or need extra time to walk 150 feet? Yes. LOCOMOTION: WALK - STEP 2: How much assistance does the patient require to walk a minimum of 150 feet? Only incidental help such as contact guarding or steadying LOCOMOTION: WALK - SCORE: 4-MIN LOCOMOTION: WHEELCHAIR: LOCOMOTION: WHEELCHAIR - STEP 1: Does the patient need help to go 150 feet in a wheelchair? Yes. LOCOMOTION: WHEELCHAIR - STEP 2: How much assistance does the patient need from the helper? Only supervision, cuing, or coaxing LOCOMOTION: WHEELCHAIR - SCORE: 5-SUP LOCOMOTION: STAIRS: Activity did not occur on this shift LOCOMOTION: STAIRS - SCORE: 0-UNK COMPREHENSION: COMPREHENSION - SCORE: 0-UNK EXPRESSION EXPRESSION - SCORE: 0-UNK SOCIAL INTERACTION: SOCIAL INTERACTION - SCORE: 0-UNK PROBLEM SOLVING: PROBLEM SOLVING - SCORE: 0-UNK MEMORY: MEMORY - SCORE: 0-UNK SIGNATURE PANEL: The following modified sections: Transfers: Bed, Chair, Wheelchair - Score, Transfers: Toilet - Score , Locomotion: Walk - Score, Locomotion: Wheelchair - Score, Locomotion: Stairs - Score were [nate [email or web address]] signed by Su Roberts PTA on FriFeb 15 2019 16:28:30 GMT-0500 (Central Daylight Time)
--- NOTE | 2019-02-15 17:48 | R.PN ---
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 Pt denied any depression. Wheelchair mobility done with modified independence for 250'. Ambulated 250' with standby assistance using a rolling walker. Blood sugars 143 to [address] Puga. Prealbumin 22.9. VITAL SIGNS Temperature: 98.0 F SBP/DBP: 147/69 Pulse: 58 Resp: 16 MEDICATION ALLERGIES: No Known Drug Allergies (NKDA) ENVIRONMENTAL ALLERGIES: None Known - Substance Allergies None Known - Other Allergies None Known NURSING: - Shower allowing shower - Lab Results blood Sugar Check ACHS - Bladder care per protocol - Skin care per protocol PRECAUTIONS: - Weight Bearing Precaution WBAT right LE ACTIVITIES OOB only with supervision THERAPIES: - Occupational Therapy Evaluate and Treat. Visual Perceptual Training. Cognitive Retraining. - Speech Therapy Cognitive Training. Memory Strategies. Speech Intelligibility Training. Expressive Language Skills. R eceptive Language Skills. - Physical Therapy Evaluate and Treat. PHYSICAL EXAM - Gen Alert and awake Lying in bed No apparent distress Oriented to: person, time, and place - Skin No beakdown No abnormalities - Eyes No abnormalities - Neck No abnormalities - CVS RRR - Chest Clear - Abd + bowel sounds - GI Soft Deferred - No abnormalities - Ext No significant edema - MSK 4+/5 weakness in left upper and lower extremities. - Neuro 4/5 strength left upper and lower extremities. - Psych No abnormalities ASSESSMENT: Pt. is a 88 yo Right-handed white male.On 01/21/2019 Pt. presented to [facility] with sudden onset of right-side weakness.On 01/21/2019 he was admitted to [facility] with diagnosis Acute left inferior cerebellar infarct.His impairment category is Stroke 01 - Right Body (Left Brain) (01.2).Pre-morbidly, Pt. was independent/mod-I in Self-Care, Locomotion, Sph incter Control, Transfers Control, Communication, and Social Cognition; and he had good Sphincter Con trol.Currently, he has deficits of Balance, Self-Care, Locomotion, Endurance, Safety Awareness, and T ransfers Control.Pt. is now referred to [facility] for acute in-patient rehabi litation in order to maximize patient's functional independence in activities of daily living, streng th, ROM, and mobility.- Rehab Goal Patient has realistic goal of being discharged at assistance level 6-Harlan to reside at Home with Fam es/Relatives. MDM/PLAN: - Physical Therapy Gait dysfunction - to improve, our physical therapists will perform initial evaluation of pt's statu s upon admission and devise an individualized program for Gait Training, and Wheel Chair mobility Inability to transfer - to improve, our physical therapists will perform initial evaluation of pt's status upon admission and devise an individualized program for Bed mobility Need for home safety evaluation - to improve, our physical therapists will perform initial evaluatio n of pt's status upon admission and devise an individualized program for Home Evaluation Need in caregiver upon discharge - to improve, our physical therapists will perform initial evaluati on of pt's status upon admission and devise an individualized program for Caregiver Training New precaution - to improve, our physical therapists will perform initial evaluation of pt's status upon admission and devise an individualized program for Patient precaution education Edema - to improve, our physical therapists will perform initial evaluation of pt's status upon admi ssion and devise an individualized program for Elevation Training, and Lymphedema Therapy Poor balance - to improve, our physical therapists will perform initial evaluation of pt's status up on admission and devise an individualized program for Balance Training Poor endurance - to improve, our physical therapists will perform initial evaluation of pt's status upon admission and devise an individualized program for Endurance Training Weakness - to improve, our physical therapists will perform initial evaluation of pt's status upon a dmission and devise an individualized program for Aquatic Therapy, Neuromuscular Reeducation, and Str engthening Achieving independence - to improve, our physical therapists will perform initial evaluation of pt's status upon admission and devise an individualized program for Community Reintegration Activities - Occupational Therapy ADL deficits - to improve, our occupation therapists will perform initial evaluation of pt's status upon admission and devise an individualized program for Bathing, Bed mobility, Community Reintegratio n, Cooking, Dressing, Eating, Fine Motor Skills, Grooming, Homemaking, Kitchen Mobility, Laundry, Pat ient Education, Safety Awareness, Splinting - Positioning, Transfers(Toilet, Tub, Shower), and Wheel Chair Management Need for palliative care nurse practitioner - to improve, our occupation therapists will perform initial evaluation of pt's status upon admission and devise an individualized program for Caregiver Training Weakness - to improve, our occupation therapists will perform initial evaluation of pt's status upon admission and devise an individualized program for Aquatic Therapy, Balance, Endurance, UE ROM, and UE strengthening - Diet Type Continue Regular - Diet - Liquid Texture Continue Regular - Tube Feed Continue N/A - Lab Results blood Sugar Check ACHS - Bladder care per protocol - Weight Bearing Precaution WBAT right LE - Skin care per protocol - Diet - Solid Texture Continue Regular - Shower allowing shower for Dementia, TBI, Stroke, or others FUNCTIONAL STATUS: UPDATED AT WEEKLY TEAM CONFERENCE - Bladder Same accident frequency: 7-Ind - No accidents in the past 7 days - Bowel Same accident frequency: 7-Ind - No accidents in the past 7 days - Walking Same score based on distance walked: 0(N/A) - Wheelchair Same score based on distance traveled: 0(N/A) FUNCTIONAL STATUS: - Self-Care A. Eating sup B. Grooming sup C. Bathing Erinn D. Dressing - Upper modA E. Dressing - Lower modA F. Toileting Erinn - Sphincter Control G: Bladder control Ind H: Bowel control Ind - Transfers Control I. Bed/Chair/Wheelchair Erinn J. Toilet Erinn K. Tub/Shower ADNO - Locomotion L. Walk/Wheelchair (C) modA L. Walk/Wheelchair (W) modA M. Stairs ADNO - Communication N. Comprehension (B) Harlan O. Expression (B) Harlan - Social Cognition P. Social Interaction Harlan Q. Problem Solving Harlan R. Memory Harlan - Endurance Fair - Balance Fair - Safety Awareness Fair CURRENT FUNC. DEFICITS: Balance, Self-Care, Locomotion, Endurance, Safety Awareness, and Transfers Control SIGNATURE PANEL: (CDT)
[2019-02-15] MEDS: TAMSULOSIN 0.4 MG PO SCH (20:30)
[2019-02-15] MEDS: SIMVASTATIN 80 MG PO SCH (20:31)
[2019-02-15] MEDS: ENOXAPARIN 30 MG/0.3 ML SQ SCH (20:31)
[2019-02-15] MEDS ORDERED: INSULIN GLARGINE 100 UNITS/ML SQ SCH (21:00)
--- NOTE | 2019-02-16 03:04 | PN ---
Date of Progress Note: 02/15/2019 Subjective: The patient was seen this morning for followup. No new complaints or problems reported by the patient lying in bed, not in distress. Objective: Vital Signs: Reviewed. HEENT: Unremarkable. Lungs: Clear to auscultation. Heart: Sounds normal. Abdomen: Soft. Bowel sounds normal. No guarding, rigidity, tenderness, or distention. Extremities: No leg edema. Laboratory Data: Fingerstick blood sugar readings reviewed. This morning blood sugar before was 307. Impression: 1.Diabetes mellitus, uncontrolled. 2.Hypertension. 3.Coronary artery disease. 4.Hyperlipidemia. 5.Stroke. Plan: We will continue current medication. Continue Lantus 60 units in the morning and regular insu leslie sliding scale at breakfast and lunchtime. No insulin to be given at dinnertime and starting nj ght. We will go ahead and give Lantus insulin 15 units at bedtime. I will see him tomorrow for foll owup. AUNG/MODL Voice ID: [id number] Report ID: [id number]
--- NOTE | 2019-02-16 03:17 | FAST ---
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 Sabino Brewster M.D. ADMISSION DIAGNOSIS: - Stroke 01 - Right Body (Left Brain) (01.2) Acute left inferior cerebellar infarct. EATING: Activity did not occur on this shift EATING - SCORE: 0-UNK GROOMING: Activity did not occur on this shift GROOMING - SCORE: 0-UNK BATHING: Activity did not occur on this shift BATHING - SCORE: 0-UNK DRESSING - UPPER BODY: Patient is not dressing in public clothing ARTICLES SCORE Total number of steps: 0 DRESSING - UPPER BODY - SCORE: 0-UNK DRESSING - LOWER BODY: Patient is not dressing in public clothing ARTICLES SCORE Total number of steps: 0 DRESSING - LOWER BODY - SCORE: 0-UNK TOILETING: TOILETING - STEP 1: Does the patient require the assistance of a person or device, or need extra time with toileting? Yes . TOILETING - STEP 2: Does the patient require the assistance of a helper? Yes. TOILETING - STEP 3: How much assistance does the patient require from the helper? Hands-on assistance from the helper TOILETING - STEP 4: Of the 3 tasks: 1) Adjusting clothing prior to use, 2) Cleansing of perineal area, 3) Adjusting clot gregor after use; How many tasks does the patient perform WITHOUT assistance of the helper? No tasks; h elper performs all three tasks TOILETING - SCORE: 1-DEP BLADDER MANAGEMENT: Activity did not occur on this shift BLADDER MANAGEMENT - SCORE: 7-IND BOWEL MANAGEMENT: Activity did not occur on this shift BOWEL MANAGEMENT - SCORE: 7-IND TRANSFERS: BED, CHAIR, WHEELCHAIR: TRANSFERS: BED, CHAIR, WHEELCHAIR - STEP 1: Does the patient require assistance of a person or device, or need extra time with bed, chair, or whe elchair transfers? Yes. TRANSFERS: BED, CHAIR, WHEELCHAIR - STEP 2: Does the patient require the assistance of a helper? Yes. TRANSFERS: BED, CHAIR, WHEELCHAIR - STEP 3: How much assistance does the patient require from the helper? Lifting of the legs TRANSFERS: BED, CHAIR, WHEELCHAIR - STEP 4: How many legs does the patient require the helper to lift? both legs TRANSFERS: BED, CHAIR, WHEELCHAIR - SCORE: 3-MOD TRANSFERS: TOILET: Patient requires more than one helper and/or the use of a mechanical lift is utilized TRANSFERS: TOILET - SCORE: 1-DEP TRANSFERS: SHOWER: Activity did not occur on this shift TRANSFERS: SHOWER - SCORE: 0-UNK TRANSFERS: TUB: Activity did not occur on this shift TRANSFERS: TUB - SCORE: 0-UNK LOCOMOTION: WALK: Activity did not occur on this shift LOCOMOTION: WALK - SCORE: 0-UNK LOCOMOTION: WHEELCHAIR: Activity did not occur on this shift LOCOMOTION: WHEELCHAIR - SCORE: 0-UNK COMPREHENSION: COMPREHENSION: TYPE: Both COMPREHENSION - STEP 1: Does the patient require help from a person or device, or need extra time to understand complex and a bstract ideas (such as current events, finances, discharge planning, medical issues, relationships, e tc)? No. COMPREHENSION - STEP 2: Does the patient need extra time, require an assistive device (such as glasses for visual comprehensi on or a hearing aid for auditory comprehension) or does s/he have mild difficulty understanding compl ex and abstract information? Yes. COMPREHENSION - SCORE: 6-SINGH EXPRESSION EXPRESSION: TYPE: Both EXPRESSION - STEP 1: Does the patient require help from a person or device, or need extra time expressing complex and abst ract ideas (such as current events, finances, discharge planning, medical issues, relationships, etc) ? No. EXPRESSION - STEP 2: Does the patient need extra time, require an assistive device (such as augmentive communication syste m or a communication board), OR does s/he have mild difficulty expressing complex and abstract ideas (including mild dysarthria or mild word-find problems)? No. EXPRESSION - SCORE: 7-IND SOCIAL INTERACTION: SOCIAL INTERACTION - STEP 1: Does the patient require a helper to interact with others in social and therapeutic situations? No. SOCIAL INTERACTION - STEP 2: Does the patient need extra time in social situations, OR does s/he interact with staff, other patien ts, and family members ONLY in structured environments, OR does s/he require medication for social in teraction? No. SOCIAL INTERACTION - SCORE: 7-IND PROBLEM SOLVING: PROBLEM SOLVING - STEP 1: Does the patient need help from a person or device, or need extra time to solve complex problems such as managing a checking account or confronting interpersonal problems? No. PROBLEM SOLVING - STEP 2: Does the patient require extra time to make decisions or solve problems, OR does s/he have slight dif ficulty reading, initiating, or self-correcting in unfamiliar situations? No. PROBLEM SOLVING - SCORE: 7-IND MEMORY: MEMORY - STEP 1: Does the patient need help from a person or device, or need extra time to remember frequently encount ered people, daily routines, and executing requests? No. MEMORY - STEP 2: Does the patient have slight difficulty recognizing frequently encountered people, daily routines, or executing requests without the need for repetition or using self-initiated or environmental cues to remember? No. MEMORY - SCORE: 7-IND SIGNATURE PANEL: The following modified sections: Eating - Score, Grooming - Score, Bathing - Score, Dressing - Upper Body - Score, Dressing - Lower Body - Score, Toileting - Score, Bladder Management - Score, Bowel Man agement - Score, Transfers: Bed, Chair, Wheelchair - Score, Transfers: Toilet - Score, Transfers: Iris wer - Score, Transfers: Tub - Score, Locomotion: Walk - Score, Locomotion: Wheelchair - Score, Compre hension - Score, Expression - Score, Social Interaction - Score, Problem Solving - Score, Memory - Sc ore were [electronically] signed by Ileana Cleary CNA on FriFeb 16 2019 03:16:31 T-0500 ([facility])
--- NOTE | 2019-02-16 04:14 | PN ---
Date of Progress Note: 02/15/2019 Chief Complaint: Chronic kidney disease stage 3/4, cardiorenal syndrome, lower extremity edema, The patient had lower extremity venous Doppler done to rule out DVT and test was negative for DVT. Review of Systems: Denies fever, chills. Physical Examination: Lungs: Few crackles at the bases. Heart: S1, S2. Abdomen: Soft, benign. Extremities: Slight edema. 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 Continue low-sodium diet and continue Bumex. 2.Hypertension, on beta-clotilde. Continue current treatment. 3.Diabetes mellitus with renal manifestation. Continue insulin and monitor blood glucose. 4.Edema, improving. The patient was ruled out for deep venous thrombosis. 5.History of cerebrovascular accident. Continue PT. PAULETTE/AGUILA Voice ID: [id number] Report ID: [id number]
[2019-02-16] MEDS: SODIUM CHLORIDE 0.9% 10ML INJ IV SCH (06:59)
[2019-02-16] MEDS: SYNTHROID 88 MCG PO SCH (06:59)
[2019-02-16 07:30] VITALS: BP 160/65; TEMP 97.6
[2019-02-16] MEDS: INSULIN -REGULAR HUMAN 50 UNIT/0.5 ML ML SQ SCH ×2 (08:00→11:54)
[2019-02-16] MEDS: CLOPIDOGREL 75 MG TABLET PO SCH (08:09)
[2019-02-16] MEDS: BUMETANIDE 2 MG PO SCH (08:09)
[2019-02-16] MEDS: FOLIC ACID 1 MG TABLET PO SCH (08:09)
[2019-02-16] MEDS: MULTIVITAMIN TAB PO SCH (08:09)
[2019-02-16] MEDS: METOPROLOL SUCCINATE 50 MG PO SCH (08:10)
[2019-02-16] MEDS: ASPIRIN 81 MG PO SCH (08:10)
[2019-02-16] MEDS: ISOSORBIDE MONONITRATE PO SCH (08:10)
[2019-02-16] MEDS: INSULIN GLARGINE 100 UNITS/ML SQ SCH (09:03)
--- NOTE | 2019-02-16 14:27 | FAST ---
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 Sabino Brewster M.D. ADMISSION DIAGNOSIS: - Stroke 01 - Right Body (Left Brain) (01.2) Acute left inferior cerebellar infarct. EATING: EATING - STEP 1: Does the patient require the assistance of a person or device, or need extra time when eating? Yes. EATING - STEP 2: Does the patient require the assistance of a helper? No, patient only requires an assistive device, O R s/he takes more than reasonable time to eat, OR there is a safety concern, OR s/he requires modifie d food consistency EATING - SCORE: 6-SINGH GROOMING: Comb/brush hair Oral care GROOMING - STEP 1: Does the patient require the assistance of a person or device, or need extra time when grooming? Yes. GROOMING - STEP 2: Does the patient require the assistance of a helper? No. The patient only requires an assistive devic e, OR takes more than reasonable time to groom, OR there is a concern for safety as the patient groom s GROOMING - SCORE: 6-SINGH BATHING: Activity did not occur on this shift BATHING - SCORE: 0-UNK DRESSING - UPPER BODY: Activity did not occur on this shift ARTICLES SCORE Total number of steps: 0 DRESSING - UPPER BODY - SCORE: 0-UNK DRESSING - LOWER BODY: Activity did not occur on this shift ARTICLES SCORE Total number of steps: 0 DRESSING - LOWER BODY - SCORE: 0-UNK TOILETING: TOILETING - STEP 1: Does the patient require the assistance of a person or device, or need extra time with toileting? Yes . TOILETING - STEP 2: Does the patient require the assistance of a helper? Yes. TOILETING - STEP 3: How much assistance does the patient require from the helper? Hands-on assistance from the helper TOILETING - STEP 4: Of the 3 tasks: 1) Adjusting clothing prior to use, 2) Cleansing of perineal area, 3) Adjusting clot gregor after use; How many tasks does the patient perform WITHOUT assistance of the helper? Three tasks with steadying assistance from the helper TOILETING - SCORE: 4-MIN BLADDER MANAGEMENT: BLADDER MANAGEMENT - STEP 1: Does the patient control the bladder completely and intentionally without equipment or devices or med ications, and is always continent? No. BLADDER MANAGEMENT - STEP 2: Does the patient require the assistance of a helper? No, patient requires and independently uses an a ssistive device, such as a urinal, bedpan, bedside commode, catheter, absorbent pad, or collecting de vice BLADDER MANAGEMENT - SCORE: 6-SINGH BOWEL MANAGEMENT: Activity did not occur on this shift BOWEL MANAGEMENT - SCORE: 7-IND TRANSFERS: BED, CHAIR, WHEELCHAIR: TRANSFERS: BED, CHAIR, WHEELCHAIR - STEP 1: Does the patient require assistance of a person or device, or need extra time with bed, chair, or whe elchair transfers? Yes. TRANSFERS: BED, CHAIR, WHEELCHAIR - STEP 2: Does the patient require the assistance of a helper? Yes. TRANSFERS: BED, CHAIR, WHEELCHAIR - STEP 3: How much assistance does the patient require from the helper? Steadying/guiding assistance TRANSFERS: BED, CHAIR, WHEELCHAIR - SCORE: 4-MIN TRANSFERS: TOILET: TRANSFERS: TOILET - STEP 1: Does the patient require the assistance of a person or device, or need extra time with toilet transfe rs? Yes. TRANSFERS: TOILET - STEP 2: Does the patient require the assistance of a helper? Yes. TRANSFERS: TOILET - STEP 3: How much assistance does the patient require from the helper? Patient performs half or more of the tr ansferring tasks TRANSFERS: TOILET - STEP 4: Does the patient need only incidental help such as contact guard or steadying during toilet transfer? Yes. TRANSFERS: TOILET - SCORE: 4-MIN TRANSFERS: SHOWER: Activity did not occur on this shift TRANSFERS: SHOWER - SCORE: 0-UNK TRANSFERS: TUB: Activity did not occur on this shift TRANSFERS: TUB - SCORE: 0-UNK LOCOMOTION: WALK: Activity did not occur on this shift LOCOMOTION: WALK - SCORE: 0-UNK LOCOMOTION: WHEELCHAIR: Activity did not occur on this shift LOCOMOTION: WHEELCHAIR - SCORE: 0-UNK COMPREHENSION: COMPREHENSION: TYPE: Both COMPREHENSION - STEP 1: Does the patient require help from a person or device, or need extra time to understand complex and a bstract ideas (such as current events, finances, discharge planning, medical issues, relationships, e tc)? No. COMPREHENSION - STEP 2: Does the patient need extra time, require an assistive device (such as glasses for visual comprehensi on or a hearing aid for auditory comprehension) or does s/he have mild difficulty understanding compl ex and abstract information? Yes. COMPREHENSION - SCORE: 6-SINGH EXPRESSION EXPRESSION: TYPE: Both EXPRESSION - STEP 1: Does the patient require help from a person or device, or need extra time expressing complex and abst ract ideas (such as current events, finances, discharge planning, medical issues, relationships, etc) ? No. EXPRESSION - STEP 2: Does the patient need extra time, require an assistive device (such as augmentive communication syste m or a communication board), OR does s/he have mild difficulty expressing complex and abstract ideas (including mild dysarthria or mild word-find problems)? Yes. EXPRESSION - SCORE: 6-SINGH SOCIAL INTERACTION: SOCIAL INTERACTION - STEP 1: Does the patient require a helper to interact with others in social and therapeutic situations? No. SOCIAL INTERACTION - STEP 2: Does the patient need extra time in social situations, OR does s/he interact with staff, other patien ts, and family members ONLY in structured environments, OR does s/he require medication for social in teraction? Yes, patient needs extra time SOCIAL INTERACTION - SCORE: 6-SINGH PROBLEM SOLVING: PROBLEM SOLVING - STEP 1: Does the patient need help from a person or device, or need extra time to solve complex problems such as managing a checking account or confronting interpersonal problems? No. PROBLEM SOLVING - STEP 2: Does the patient require extra time to make decisions or solve problems, OR does s/he have slight dif ficulty reading, initiating, or self-correcting in unfamiliar situations? Yes, patient needs extra ti me. PROBLEM SOLVING - SCORE: 6-SINGH MEMORY: MEMORY - STEP 1: Does the patient need help from a person or device, or need extra time to remember frequently encount ered people, daily routines, and executing requests? No. MEMORY - STEP 2: Does the patient have slight difficulty recognizing frequently encountered people, daily routines, or executing requests without the need for repetition or using self-initiated or environmental cues to remember? Yes. MEMORY - SCORE: 6-SINGH SIGNATURE PANEL: The following modified sections: Eating - Score, Grooming - Score, Bathing - Score, Dressing - Upper Body - Score, Dressing - Lower Body - Score, Toileting - Score, Bladder Management - Score, Bowel Man agement - Score, Transfers: Bed, Chair, Wheelchair - Score, Transfers: Toilet - Score, Transfers: Iris wer - Score, Transfers: Tub - Score, Locomotion: Walk - Score, Locomotion: Wheelchair - Score, Compre hension - Score, Expression - Score, Social Interaction - Score, Problem Solving - Score, Memory - Sc ore were [electronically] signed by Barrera Liang on FriFeb 16 2019 14:27:14 T-0500 (Central Daylight Time)
--- NOTE | 2019-02-16 15:38 | FAST ---
ENCOUNTER DATE AND TIME: 02/16/2019 08:00 (CDT) NAME ALISSON HERNANDEZ DATE OF : 1930 DATE OF ADMISSION: 01/26/2019 13:45 (LEGAL CASHIER) PHONE: AGE: 88 N# [id number] GENDER: Male ENCOUNTER PHYSICIAN: Dr. Sabino Brewster M.D. ADMISSION DIAGNOSIS: - Stroke 01 - Right Body (Left Brain) (01.2) Acute left inferior cerebellar infarct. EATING: Activity did not occur on this shift EATING - SCORE: 0-UNK GROOMING: Activity did not occur on this shift GROOMING - SCORE: 0-UNK BATHING: Activity did not occur on this shift BATHING - SCORE: 0-UNK DRESSING - UPPER BODY: Activity did not occur on this shift Patient is not dressing in public clothing ARTICLES SCORE Total number of steps: 0 DRESSING - UPPER BODY - SCORE: 0-UNK DRESSING - LOWER BODY: Activity did not occur on this shift Patient is not dressing in public clothing ARTICLES SCORE Total number of steps: 0 DRESSING - LOWER BODY - SCORE: 0-UNK TOILETING: Activity did not occur on this shift TOILETING - SCORE: 0-UNK BLADDER MANAGEMENT: Activity did not occur on this shift BLADDER MANAGEMENT - SCORE: 7-IND BOWEL MANAGEMENT: Activity did not occur on this shift BOWEL MANAGEMENT - SCORE: 7-IND TRANSFERS: BED, CHAIR, WHEELCHAIR: TRANSFERS: BED, CHAIR, WHEELCHAIR - STEP 1: Does the patient require assistance of a person or device, or need extra time with bed, chair, or whe elchair transfers? Yes. TRANSFERS: BED, CHAIR, WHEELCHAIR - STEP 2: Does the patient require the assistance of a helper? Yes. TRANSFERS: BED, CHAIR, WHEELCHAIR - STEP 3: How much assistance does the patient require from the helper? Only supervision TRANSFERS: BED, CHAIR, WHEELCHAIR - SCORE: 5-SUP TRANSFERS: TOILET: Activity did not occur on this shift TRANSFERS: TOILET - SCORE: 0-UNK TRANSFERS: SHOWER: Activity did not occur on this shift TRANSFERS: SHOWER - SCORE: 0-UNK TRANSFERS: TUB: Activity did not occur on this shift TRANSFERS: TUB - SCORE: 0-UNK LOCOMOTION: WALK: LOCOMOTION: WALK - STEP 1: Does the patient need help from a person or device, or need extra time to walk 150 feet? Yes. LOCOMOTION: WALK - STEP 2: How much assistance does the patient require to walk a minimum of 150 feet? Only supervision, cuing, or coaxing LOCOMOTION: WALK - SCORE: 5-SUP LOCOMOTION: WHEELCHAIR: LOCOMOTION: WHEELCHAIR - STEP 1: Does the patient need help to go 150 feet in a wheelchair? No. LOCOMOTION: WHEELCHAIR - SCORE: 6-SINGH LOCOMOTION: STAIRS: LOCOMOTION: STAIRS - STEP 1: Does the patient need help to go up and down 12 to 14 stairs? Yes. LOCOMOTION: STAIRS - STEP 2: How much assistance does the patient need from the helper to go a minimum of 12 to 14 stairs? The pat ient goes less than 12 stairs, but at least 4 stairs LOCOMOTION: STAIRS - SCORE: 2-MAX COMPREHENSION: COMPREHENSION - SCORE: 0-UNK EXPRESSION EXPRESSION - SCORE: 0-UNK SOCIAL INTERACTION: SOCIAL INTERACTION - SCORE: 0-UNK PROBLEM SOLVING: PROBLEM SOLVING - SCORE: 0-UNK MEMORY: MEMORY - SCORE: 0-UNK SIGNATURE PANEL: The following modified sections: Transfers: Bed, Chair, Wheelchair - Score, Transfers: Toilet - Score , Locomotion: Walk - Score, Locomotion: Wheelchair - Score, Locomotion: Stairs - Score were [electron ically] signed by Robert Peters PTA on FriFeb 16 2019 15:36:46 GMT-0500 (Central Daylight Time)
--- NOTE | 2019-02-16 17:20 | R.PN ---
ENCOUNTER DATE AND TIME: 02/16/2019 17:17 (CDT) NAME ALISSON HERNANDEZ DATE OF : 1930 DATE OF ADMISSION: 01/26/2019 13:45 (SHERIFF DETECTIVE) Acute left inferior cerebellar infarctCHIEF COMPLAINT: Left cerebellar stroke SUBJECTIVE: Pt denied any Shortness of Breath. Pt denied any depression. Wheelchair mobility done with modified independence for 250'. Ambulated 500' with standby assistance using a rolling walker. Up and down 5 steps with contact guard assistance. Blood sugars 143 to [address] Puga. Prealbumin 22.9. VITAL SIGNS Temperature: 97.6 F SBP/DBP: 160/65 Pulse: 64 Resp: 14 MEDICATION ALLERGIES: No Known Drug Allergies (NKDA) ENVIRONMENTAL ALLERGIES: None Known - Substance Allergies None Known - Other Allergies None Known NURSING: - Shower allowing shower - Lab Results blood Sugar Check ACHS - Bladder care per protocol - Skin care per protocol PRECAUTIONS: - Weight Bearing Precaution WBAT right LE ACTIVITIES OOB only with supervision THERAPIES: - Occupational Therapy Evaluate and Treat. Visual Perceptual Training. Cognitive Retraining. - Speech Therapy Cognitive Training. Memory Strategies. Speech Intelligibility Training. Expressive Language Skills. R eceptive Language Skills. - Physical Therapy Evaluate and Treat. PHYSICAL EXAM - Gen Alert and awake Lying in bed No apparent distress Oriented to: person, time, and place - Skin No beakdown No abnormalities - Eyes No abnormalities - Neck No abnormalities - CVS RRR - Chest Clear - Abd + bowel sounds - GI Soft Deferred - No abnormalities - Ext No significant edema - MSK 4+/5 weakness in left upper and lower extremities. - Neuro 4/5 strength left upper and lower extremities. - Psych No abnormalities ASSESSMENT: Pt. is a 88 yo Right-handed white male.On 01/21/2019 Pt. presented to [facility] with sudden onset of right-side weakness.On 01/21/2019 he was admitted to [facility] with diagnosis Acute left inferior cerebellar infarct.His impairment category is Stroke 01 - Right Body (Left Brain) (01.2).Pre-morbidly, Pt. was independent/mod-I in Self-Care, Locomotion, Sph incter Control, Transfers Control, Communication, and Social Cognition; and he had good Sphincter Con trol.Currently, he has deficits of Balance, Self-Care, Locomotion, Endurance, Safety Awareness, and T ransfers Control.Pt. is now referred to [facility] for acute in-patient rehabi litation in order to maximize patient's functional independence in activities of daily living, streng th, ROM, and mobility.- Rehab Goal Patient has realistic goal of being discharged at assistance level 6-Harlan to reside at Home with Fam es/Relatives. MDM/PLAN: - Physical Therapy Gait dysfunction - to improve, our physical therapists will perform initial evaluation of pt's statu s upon admission and devise an individualized program for Gait Training, and Wheel Chair mobility Inability to transfer - to improve, our physical therapists will perform initial evaluation of pt's status upon admission and devise an individualized program for Bed mobility Need for home safety evaluation - to improve, our physical therapists will perform initial evaluatio n of pt's status upon admission and devise an individualized program for Home Evaluation Need in caregiver upon discharge - to improve, our physical therapists will perform initial evaluati on of pt's status upon admission and devise an individualized program for Caregiver Training New precaution - to improve, our physical therapists will perform initial evaluation of pt's status upon admission and devise an individualized program for Patient precaution education Edema - to improve, our physical therapists will perform initial evaluation of pt's status upon admi ssion and devise an individualized program for Elevation Training, and Lymphedema Therapy Poor balance - to improve, our physical therapists will perform initial evaluation of pt's status up on admission and devise an individualized program for Balance Training Poor endurance - to improve, our physical therapists will perform initial evaluation of pt's status upon admission and devise an individualized program for Endurance Training Weakness - to improve, our physical therapists will perform initial evaluation of pt's status upon a dmission and devise an individualized program for Aquatic Therapy, Neuromuscular Reeducation, and Str engthening Achieving independence - to improve, our physical therapists will perform initial evaluation of pt's status upon admission and devise an individualized program for Community Reintegration Activities - Occupational Therapy ADL deficits - to improve, our occupation therapists will perform initial evaluation of pt's status upon admission and devise an individualized program for Bathing, Bed mobility, Community Reintegratio n, Cooking, Dressing, Eating, Fine Motor Skills, Grooming, Homemaking, Kitchen Mobility, Laundry, Pat ient Education, Safety Awareness, Splinting - Positioning, Transfers(Toilet, Tub, Shower), and Wheel Chair Management Need for child care group leader - to improve, our occupation therapists will perform initial evaluation of pt's status upon admission and devise an individualized program for Caregiver Training Weakness - to improve, our occupation therapists will perform initial evaluation of pt's status upon admission and devise an individualized program for Aquatic Therapy, Balance, Endurance, UE ROM, and UE strengthening - Diet Type Continue Regular - Diet - Liquid Texture Continue Regular - Tube Feed Continue N/A - Lab Results blood Sugar Check ACHS - Bladder care per protocol - Weight Bearing Precaution WBAT right LE - Skin care per protocol - Diet - Solid Texture Continue Regular - Shower allowing shower for Dementia, TBI, Stroke, or others FUNCTIONAL STATUS: UPDATED AT WEEKLY TEAM CONFERENCE - Bladder Same accident frequency: 7-Ind - No accidents in the past 7 days - Bowel Same accident frequency: 7-Ind - No accidents in the past 7 days - Walking Same score based on distance walked: 0(N/A) - Wheelchair Same score based on distance traveled: 0(N/A) FUNCTIONAL STATUS: - Self-Care A. Eating sup B. Grooming sup C. Bathing Erinn D. Dressing - Upper modA E. Dressing - Lower modA F. Toileting Erinn - Sphincter Control G: Bladder control Ind H: Bowel control Ind - Transfers Control I. Bed/Chair/Wheelchair Erinn J. Toilet Erinn K. Tub/Shower ADNO - Locomotion L. Walk/Wheelchair (C) modA L. Walk/Wheelchair (W) modA M. Stairs ADNO - Communication N. Comprehension (B) Harlan O. Expression (B) Harlan - Social Cognition P. Social Interaction Harlan Q. Problem Solving Harlan R. Memory Harlan - Endurance Fair - Balance Fair - Safety Awareness Fair CURRENT FUNC. DEFICITS: Balance, Self-Care, Locomotion, Endurance, Safety Awareness, and Transfers Control SIGNATURE PANEL: (CDT)
--- NOTE | 2019-02-17 06:23 | DS ---
Date of Discharge: 02/16/2019 Disposition: Discharged to go home. Physical Examination: HEENT: Unremarkable. Lungs: Clear to auscultation. Heart: Sounds normal. Abdomen: Soft. Bowel sounds normal. No guarding, rigidity, tenderness, distention. Extremities: Trace leg edema. Laboratory Data: Last CBC on February 11, 2019, white count 6.7, hemoglobin 11.3, platelets 183. Finge rstick blood sugar readings reviewed. Last chemistry from 02/13/2019, sodium 134, potassium 5, chlor eva 99, bicarb 30, BUN 62, creatinine 2.51, glucose was 443. Liver function test normal. Discharge Diagnoses: 1.Stroke. 2.Diabetes mellitus, type 2, uncontrolled. 3.Chronic kidney disease, stage 4. 4.Coronary artery disease. 5.Hypertension. 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 7.Hyperlipidemia. 8.Hypothyroidism. 9.Diverticulosis. 10.Benign prostatic hypertrophy. Discharge Medications/instructions: Follow up at my office in 2 weeks, and the patient to bring his fingerstick blood sugar readings with him at the time of followup. The patient's daughter did picking table worker the list of medication from office, and the patient to continue al l his prior home medication except following changes: 1.Take metoprolol 50 mg twice a day, isosorbide 60 mg daily, add clopidogrel 75 mg p.o. daily, and f olic acid. 2.Take Levemir insulin 60 units subcutaneous injection daily morning and 15 units subcutaneous injec tion at bedtime. 3.Take NovoLog insulin only at breakfast and lunchtime. If sugar is less than 150, 0 units. If blo od sugar is between 151-250, take 3 units. If sugar is between 251-350, take 5 units. If sugar is 3 51 or high, take 7 units. The patient to check blood sugar before breakfast, before lunch, before di nner, and bedtime but to take NovoLog insulin only at breakfast and lunchtime. 4.Reduce bumetanide 2 mg 1 tablet p.o. daily. 5.Do not take any metolazone. Hospital Course: An 88-year-old male patient who was admitted to rehab floor from the medical floor with a principal diagnosis of stroke. The patient was admitted to the hospital. He started to recei ve physical therapy under the guidance of Dr. Brewster. We monitored his fingerstick blood sugar ki y carefully, and the patient had a very labile blood sugar along, but especially the pattern that we established that he had early childhood services coordinator hypoglycemia between 5 to 7 a.m. His hypoglycemia was correcte d with oral therapy as well as IV glucose solution from time to time. Initially, we stopped his bedt ld long-acting insulin, and he is still continued to have hypoglycemia problem in the morning hours, so we discontinued sliding scale insulin at bedtime and continued his regular insulin with moderate sliding scale at breakfast, lunch, and dinner time. He was also ordered to have bedtime snack and th e snack that has provided him consistent relief from hypoglycemia is peanut butter sandwich with pauline olate milk as well as either cottage cheese or some nuts at bedtime. He still had some hypoglycemia in spite of all these interventions, so the last intervention we provided was to stop his suppertime sliding scale insulin, and I believe that actually is going to help take care of this early childhood services coordinator h ypoglycemia problem. The patient also required some IV insulin from time to time while on the rehab floor, but overall I believe that we have established a pattern with drop in his blood sugar during e violeta morning hours, but with this combination of insulin, we have achieved much better control on his diabetes, and we hope that this continues at home as well. The patient was instructed to make sure to eat his breakfast, lunch, dinner in timely manner and to eat his consistent bedtime snack. The elena galeano verbalized understanding. He was discharged to go home in stable condition today with above-mentioned medicatio n and instructions. AUNG/MODL Voice ID: [id number] Report ID: [id number]
--- NOTE | 2019-02-17 17:33 | R.DS ---
FACILITY [facility] MR# [id number] NAME ALISSON PEREA ADDRESS [address] [place] [address] [address]IP [id number] PHONE DATE OF 1930 AGE 88 SSN# [id number] GENDER Male DEXTERITY Right-handed MARITAL STATUS RACE White ENCOUNTER PHYSICIAN Dr. Sabino Brewster M.D. REFERRING DOCTOR Torres Puga REFERRING FACILITY [facility] DISCHARGE DIAGNOSIS: - Stroke 01 - Right Body (Left Brain) (01.2) Acute left inferior cerebellar infarct. 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) - N/A HYPERTENSION Osteoarthritis CKD STAGE 4 HYPERLIPIDEMIA DIVERTICULOSIS HYPOTHYROIDISM BPH PR CAD DATE OF ADMISSION 01/26/2019 13:45 (CURRICULUM SUPERVISOR) MEDICATION ALLERGIES: No Known Drug Allergies (NKDA) ENVIRONMENTAL ALLERGIES: None Known - Substance Allergies None Known - Other Allergies None Known NURSING: - Shower allowing shower - Lab Results blood Sugar Check ACHS - Bladder care per protocol - Skin care per protocol PRECAUTIONS: - Weight Bearing Precaution WBAT right LE ACTIVITIES OOB only with supervision THERAPIES: - Occupational Therapy Evaluate and Treat Visual Perceptual Training Cognitive Retraining - Speech Therapy Cognitive Training Memory Strategies Speech Intelligibility Training Expressive Language Skills Receptive Language Skills - Physical Therapy Evaluate and Treat HISTORY OF PRESENT ILLNESS: Pt. is a 88 yo Right-handed white male.On 01/21/2019 Pt. presented to [facility] with sudden onset of right-side weakness.On 01/21/2019 he was admitted to [facility] with diagnosis Acute left inferior cerebellar infarct.His impairment category is Stroke 01 - Right Body (Left Brain) (01.2).Pre-morbidly, Pt. was independent/mod-I in Sphincter Control, Communi cation, and Social Cognition; and he had good Sphincter Control.Currently, he has deficits of Balance , Self-Care, Locomotion, Endurance, Safety Awareness, and Transfers Control.Pt. is now referred to [facility] for acute in-patient rehabilitation in order to maximize patient's fu nctional independence in activities of daily living, strength, ROM, and mobility.- Rehab Goal Patient has realistic goal of being discharged at assistance level 6-Harlan to reside at Home with Fam es/Relatives. Alisson Perea is an 88 year old male that lives in a single bairon home with 1 step threshold. Patient is independen t with basic ADL but had help meals, medication management, laundry and housekeeping. On 01/21/2019, he developed weakness an d blurring of vision and was admitted to [facility] and treated. He is now medically stable but in need of 24-hour nursing, doctor supervision and oversite participate in 3hours of therapy a day/15 hours per week and receive care with an intensive interdisciplinary approach.HOSPITAL COURSE: DIET - LIQUID TEXTURE: On 01/26/2019 Pt was upgraded to Regular Diet - Liquid Texture. DIET - SOLID TEXTURE: On 01/26/2019 Pt was upgraded to Regular Diet - Solid Texture. DIET TYPE: On 01/26/2019 Pt was upgraded to Regular Diet Type. TUBE FEED: On 01/26/2019 Pt was changed to N/A Tube Feed. WEIGHT BEARING PRECAUTION: On 01/26/2019 the following precautions were added for the patient: Weight Bearing Precaution - WBAT right LE. On 01/26/2019 the following precautions were added for the patient: Weight Bearing Precaution - WBAT right LE. On 01/27/2019 the following precautions were removed for the patient: Weight Bearing Precaution - WB AT right LE. On 02/01/2019 the following precautions were added for the patient: Weight Bearing Precaution - WBAT right LE. DISCHARGE PHYSICAL EXAM - Gen Alert and awake Lying in bed No apparent distress Oriented to: person, time, and place - Skin No beakdown No abnormalities - Eyes No abnormalities - Neck No abnormalities - CVS RRR - Chest Clear - Abd + bowel sounds - GI Soft Deferred - No abnormalities - Ext No significant edema - MSK 4+/5 weakness in left upper and lower extremities. - Neuro 4/5 strength left upper and lower extremities. - Psych No abnormalities FUNCTIONAL STATUS: - Self-Care A. Eating 7-Ind B. Grooming 7-Ind C. Bathing 6-Harlan D. Dressing - Upper 6-Harlan E. Dressing - Lower 6-Harlan F. Toileting 6-Harlan - Sphincter Control G: Bladder control 7-Ind H: Bowel control 7-Ind - Transfers Control I. Bed/Chair/Wheelchair 6-Harlan J. Toilet 5-sup K. Tub/Shower 5-sup - Locomotion L. Walk/Wheelchair (C) 6-Harlan L. Walk/Wheelchair (W) 5-sup M. Stairs 4-Erinn - Communication N. Comprehension (B) 6-Harlan O. Expression (B) 6-Harlan - Social Cognition P. Social Interaction 6-Harlan Q. Problem Solving 6-Harlan R. Memory 6-Harlan - Endurance Fair - Balance Fair - Safety Awareness Fair DISCHARGE INSTRUCTIONS: - N/A Plavix 75 mg and aspirin 81 mg daily. DISCHARGE PLAN, FOLLOW UP CARE PROVISIONS: - Estimated Length of Stay (days) 17. - Consensus on plan Discharge plan has been discussed with primary caregiver. Patient/Family is in agreement with the zack n. Primary caregiver is in agreement with the plan. - Patient/Family Goals Return home with assistance. - Planned Living Setting Upon Discharge Home, to live with Family/Relatives. SIGNATURE PANEL: (CDT)
== END 2019-02-16 17:00 | disposition home health service (06) | DRG 57 ==
LOC: 5TH 13:45
PROVIDERS: ADMIT Internal Medicine; ATTEND Internal Medicine
DX: I69.351 Hemiplegia and hemiparesis following cerebral infarction affecting right dominant side (principal); N18.4 Chronic kidney disease, stage 4 (severe); N40.0 Benign prostatic hyperplasia without lower urinary tract symptoms; I25.10 Atherosclerotic heart disease of native coronary artery without angina pectoris; I12.9 Hypertensive chronic kidney disease with stage 1 through stage 4 chronic kidney disease, or unspecified chronic kidney disease; E11.22 Type 2 diabetes mellitus with diabetic chronic kidney disease; K57.90 Diverticulosis of intestine, part unspecified, without perforation or abscess without bleeding; E78.5 Hyperlipidemia, unspecified; E03.9 Hypothyroidism, unspecified; I25.2 Old myocardial infarction; E11.40 Type 2 diabetes mellitus with diabetic neuropathy, unspecified; E87.6 Hypokalemia; E11.649 Type 2 diabetes mellitus with hypoglycemia without coma; E87.70 Fluid overload, unspecified
CPT/HCPCS: 36415; 71045; 80048; 80053; 80069; 81001; 82040; 82947; 82962; 83735; 84100; 84134; 85025; 87086; 87088; 92507; 92523; 92610; 93970; 97110; 97112; 97116; 97150; 97163; 97167; 97530; J1650

== ENCOUNTER 2019-03-22 07:45 | Inpatient (IN) | payer OTHER ==
[2019-03-22] MEDS ORDERED: INSULIN -REGULAR HUMAN 100 UNIT in NA CHLORIDE 0.9% 100 ML IV SCH ×2 (08:00→09:30)
[2019-03-22] MEDS ORDERED: INSULIN -REGULAR HUMAN 50 UNIT/0.5 ML ML ONE (08:08)
[2019-03-22 08:15] LABS: Absolute Lymphocytes (CBC) 1.4 K/uL (0.7-4.9); Absolute Monocytes 0.5 K/uL (0.1-1.3); Absolute Neutrophil 11.2 K/uL (1.8-8.0); Basophils % 0.3 % (0-1.3); Eosinophils % 0.1 % (0-4.4); Hematocrit 40.4 % (39.6-49.0); Lymphocytes % 10.4 % (15.3-44.8); MPV 12.3 fL (7.6-11.3); Protime INR 1.03; RBC Red Blood Cell Count 3.75 M/uL (4.33-5.43)
--- NOTE | 2019-03-22 08:28 | RAD REPORT ---
EXAM DESCRIPTION: CT - Head C Spine Cap Wo Con - 03/22/2019 8:08 am CLINICAL HISTORY: Found down, found unresponsive, head, neck, chest and abdomen injury COMPARISON: CT abdomen August 2017. TECHNIQUE: Axial [address] head images were obtained. Axial [address] cervical spine images were obtain ed with sagittal and coronal reconstruction images reviewed. Axial 5 mm images of the chest, abdomen and pelvis were obtained. No oral contrast given. All CT scans are performed using dose optimization technique as appropriate and may include automated exposure control or mA/KV adjustment according to patient size. FINDINGS: No intracranial hemorrhage, mass or edema. No midline shift or abnormal fluid collection. Mastoid air cells and paranasal sinuses are clear. No skull fracture. Dense arterial tree calcificat ions are present. Patient has prominent atrophy with ventricular size in proportion. There is chronic ischemic change throughout the cerebral hemisphere white matter and extending into the thalamus, bas al ganglia and brainstem. Physiologic calcifications are present. Cervical bodies are normal in height and alignment. No fracture or acute bone finding.C5-6 and C6-7 d isc space narrowing seen with endplate spurring and bony foraminal encroachment.No prevertebral soft tissue thickening or paraspinal mass.Central canal detail is inherently limited on CT imaging. No pulmonary contusion or mass lesion identified. Medial posterior gutter opacification on the left i s favored to be atelectasis. Motion accentuates lung parenchyma. Granuloma seen in the left lung base . A minimal interstitial edema or infiltrate would be possible. Cardiomegaly is present without peric ardial effusion. Dense Coronary artery calcifications are present. No mediastinal hematoma and the aorta and pulmonary arteries are unremarkable. No chest will mass or abnormal axillary finding. Old r ib fracture changes are present. No acute rib fracture or pathologic bone process seen. Stomach is distended by fluid. No gastric wall thickening or mass. Large and small bowel are not dila wesly. The liver, spleen and pancreas show no acute findings. No acute gallbladder finding. Gallstones can be occult. No biliary tree dilatation. Moderate severity hydronephrosis is present along with hyd roureter to the pelvic inlet level. No obstructing calculus. Distal ureter is decompressed. The hydro nephrosis is stable from 2017. Isodense masses and pyelonephritis are not excluded on this noncontras t study. No free air, free fluid or abnormal stranding. No mass or bulky lymphadenopathy. Small right inguina l hernia is present with no acute component. No urinary bladder abnormality. No prostatic hypertrophy . Disc and bony degenerative changes are present most prominent in the lower lumbar spine facet joints. No compression fracture or pathologic bone process. IMPRESSION: Prominent atrophy and chronic ischemic change with no acute intracranial finding. No acute traumatic injury to the chest. Left lung base atelectasis is present. A minimal interstitial edema or infiltrate cannot be excluded. Cervical spine degenerative change as detailed. No acute finding. No acute CT abdomen and pelvis findings. Chronic findings of the head, neck, chest, abdomen and pelvis are detailed in the body of the report.
[2019-03-22] MEDS ORDERED: NA CHLORIDE 0.9% 500 ML ONE (08:45)
[2019-03-22] MEDS ORDERED: CEFTRIAXONE/SWI 1gm 1 GM/10 ML SYR ONE (08:52)
[2019-03-22 08:53] LABS: Albumin 3.3 g/dL (3.4-5.0); Bilirubin Direct 0.1 mg/dL (0-0.2); Bilirubin Total 0.5 mg/dL (0.2-1.0); Magnesium 2.5 mg/dL (1.8-2.4); Potassium 5.4 mmol/L (3.5-5.1); Troponin (Emerg Dept Use Only) 5.58 ng/mL (0.0-0.045)
[2019-03-22] MEDS ORDERED: VANCOMYCIN 1.5 GM in NA CHLORIDE 0.9% 500 ML IVPB ONE (09:00)
[2019-03-22] MEDS ORDERED: NA CHLORIDE 0.9% 3,000 ML ONE (09:03)
[2019-03-22 09:08] LABS: Urine Blood 2+ (NEG); Urine Glucose 3+ (NEG); Urine Protein TRACE (NEG)
--- NOTE | 2019-03-22 09:11 | ER ---
Nurse's Notes [facility] Name: Abner Perea Age: 88 yrs Sex: Male : 1930 Arrival Date: 03/22/2019 Time: 07:46 Bed 4 Private MD: Diagnosis: DKA, NSTEMI Presentation: 03/22 07:46 Presenting complaint: EMS states: called EMS, found on the back of the door of the bedroom this AM, unresponsive, per EMS, BGL- above 600; pt responsive to painful stimuli, BP- 110/70; HR- 90; O2 sat- 97% RA:. Transition of care: patient was not received from another setting of care. Onset of symptoms was March 22, 2019. Risk Assessment: Do you want to hurt yourself or someone else? Patient reports no desire to harm self or others. Initial Sepsis Screen: Does the patient meet any 2 criteria? No. Patient's initial sepsis screen is negative. Does the patient have a suspected source of infection? No. Patient's initial sepsis screen is negative. Care prior to arrival: Medication(s) given: Normal saline infusion, 1000 mL, IV initiated. 20 GA, in the left antecubital area, Glucose check: 600. 07:46 Method Of Arrival: EMS: [facility] 07:46 Acuity: GEORGE 2 Triage Assessment: 07:51 General: Appears in no apparent distress. uncomfortable, obese, Behavior is unresponsive. Pain: Unable to use pain scale. Patient is unresponsive. Historical: - Allergies: 07:50 No Known Allergies; - Home Meds: 08:42 aspirin 81 mg Oral TbEC 1 tab once daily [Active]; bumetanide 2 mg Oral tab 1.5 tab 2 iw times per day [Active]; Isosorbide 30mg Daily [Active]; Levemir 100 unit/mL subcutaneous soln [Active]; levothyroxine 88 mcg tab 1 tab once daily [Active]; levothyroxine 200 mcg tab 1 tab once daily [Active]; Novolog 100 unit/mL Sub-Q soln three times a day [Active]; simvastatin 80 mg Oral tab daily [Active]; tamsulosin 0.4 mg Oral cp24 1 cap once daily [Active]; - PMHx: 07:50 Diabetes - IDDM; Hypertension; Hypothyroidism; Myocardial infarction; hj - PSHx: 07:50 None; hj - Immunization history:: Adult Immunizations up to date. - Social history:: Smoking status: Patient/guardian denies using tobacco, Patient/guardian denies using alcohol. - Ebola Screening: : Patient negative for fever greater than or equal to 101.5 degrees Fahrenheit, and additional compatible Ebola Virus Disease symptoms Patient denies exposure to infectious person Patient denies travel to an Ebola-affected area in the 21 days before illness onset. Screenin:51 Abuse screen: Denies threats or abuse. Denies injuries from another. Nutritional hj screening: No deficits noted. Tuberculosis screening: No symptoms or risk factors identified. Fall Risk Secondary diagnosis (15 points). Assessment: 07:51 General: Appears distressed, comfortable, obese, Behavior is OBTUNDED. Pain: Unable to bp use pain scale. Patient is unresponsive. Neuro: Level of Consciousness is obtunded, Oriented to none. Cardiovascular: Rhythm is sinus rhythm. Respiratory: Airway is patent Respiratory effort is even, Respiratory pattern is Kussmaul. GI: No deficits noted. : No deficits noted. EENT: No deficits noted. Derm: No deficits noted. Musculoskeletal: Circulation, motion, and sensation intact. Range of motion: intact in all extremities. 08:05 Reassessment: PT TO CT WITH FURNACE BRAZER. bp 08:20 Reassessment: back form CT; RT in room for ABG;. hj 08:46 Reassessment: lac of 5.1; verified with MD if okay to give fluids, 30 ml/kg; MD states, just give NS 500 ml bolus;. 08:53 Reassessment: MD ordered fluid resuscitation per septic protocol;. hj 09:30 Reassessment: pt BP- 75/48; MD aware;. hj 09:40 Reassessment: Dr. Lucas notified of BP 75/48, daughter contacted via telephone, iw daughter verifies that pt is DNR and wishes to hold off on central line and vasopressors at this time. Daughter states she is on her way to ER now. 09:57 Reassessment: repeat Chem 7 drawn and sent to lab, RT at bedside for repeat ABG. iw Vital Signs: 07:50 BP 106 / 45; Pulse 82; Resp 18; Temp 97; Pulse Ox 99% ; Weight 108.8 kg; Height 5 ft. hj 11 in. (180.34 cm); 08:31 BP 110 / 75; Pulse 89; Resp 20; Pulse Ox 100% on R/A; hj 08:45 BP 82 / 42; Pulse 89; Resp 40; Pulse Ox 94% on R/A; hj 08:51 BP 95 / 51; Pulse 89; Resp 37; Pulse Ox 95% on 3 lpm NC; hj 09:35 BP 75 / 48; Pulse 86; Resp 24; Pulse Ox 95% on 3 lpm NC; hj 09:52 BP 85 / 46; Pulse 87; Resp 22; Pulse Ox 97% on 3 lpm NC; hj 07:50 Body Mass Index 33.45 (108.80 kg, 180.34 cm) hj [place] Coma Score: 07:49 Eye Response: none(1). Verbal Response: none(1). Motor Response: withdraws from kdr pain(4). Total: 6. ED Course: 07:46 Patient arrived in ED. hj 07:47 Ryan Lucas MD is Attending Physician. kdr 07:49 Triage completed. hj 07:51 Arm band placed on right wrist. hj 07:51 Maintain EMS IV. Dressing intact. Site clean \T\ dry. Gauge \T\ site: 20 GAUGE LEFT AC. bp 07:52 Alex Carr, RN is Primary Nurse. hj 07:52 Patient has correct armband on for positive identification. Placed in gown. Bed in low hj position. Call light in reach. Side rails up X2. 08:00 Inserted saline lock: 18 gauge in right EJ, using aseptic technique. Blood collected. bp 08:08 CT Traumagram (Head C Spine CAP wo con) In Process Unspecified. EDMS 08:14 glucometer results - FOR PT WITH NO ID Sent. bp 08:18 EKG done, by cat scan tech. reviewed by Ryan Lucas MD. at1 08:30 Enamorado cath inserted, using sterile technique, 16 Fr., by va, balloon inflated, to jb1 gravity drainage, urine specimen collected. 08:54 Notified ED physician of a critical lab result(s). Vuwc=6279, CO2=9, MB=34, Trop=5.58. iw 08:59 XRAY Chest (1 view) In Process Unspecified. EDMS 09:09 Torres Puga MD is Hospitalizing Provider. kdr 09:58 Chem 7 Sent. iw 10:31 No provider procedures requiring assistance completed. Patient admitted, IV remains in hj place. intact. Administered Medications: 08:00 Drug: Insulin Regular Human 10 units {Co-Signature: silvia (Alex Carr RN).} Route: IVP; bp Site: right jugular; 08:21 Follow up: Response: No adverse reaction hj 08:20 Drug: Insulin Drip - (Insulin Regular Human 100 units, NS 0.9% 100 ml) {Co-Signature: bp (Alex Carr RN).} Route: IV; Rate: calculated rate; Site: right jugular; 08:37 Drug: NS 0.9% 500 ml Route: IV; Rate: bolus; Site: left antecubital; hj 09:15 Follow up: IV Status: Completed infusion hj 08:38 Drug: Rocephin - (cefTRIAXone) 1 grams Route: IVPB; Infused Over: 30 mins; Site: left hj antecubital; 09:16 Follow up: IV Status: Completed infusion hj 08:49 Drug: NS 0.9% (30 ml/kg) 30 ml/kg Route: IV; Rate: bolus; Site: left antecubital; hj 09:15 Follow up: IV Status: Infusion continued hj 08:59 Drug: vancoMYCIN 1.5 grams Route: IVPB; Rate: calculated rate; Site: left antecubital; hj 09:16 Follow up: IV Status: Completed infusion hj 09:09 Drug: Sodium Bicarbonate 1 amp Route: IVP; Site: left antecubital; hj 09:13 Follow up: Response: No adverse reaction hj 09:11 Drug: Aspirin Suppository 300 mg Route: AK; hj 09:32 Follow up: Response: No adverse reaction hj 09:11 Drug: Heparin ([place]-Bolus No thrombolytic) - HEParin 60 units/kg {Co-Signature: iw (Raegan Goodrich RN).} Route: IVP; Site: left antecubital; 09:33 Follow up: Response: No adverse reaction Point of Care Testing: Blood Glucose: 07:56 Blood Glucose: High (>450 mg/dL); iw 09:35 Blood Glucose: High (>450 mg/dL); hj Ranges: Outcome: 09:10 Decision to Hospitalize by Provider. kdr 10:31 Admitted to ICU accompanied by nurse, accompanied by tech, family with patient, via hj stretcher, room 7, with oxygen, on monitor, with chart, Report called to Sheila Asher RN 10:31 Condition: stable 10:31 Instructed on the need for admit, Demonstrated understanding of instructions. 10:33 Patient left the ED. Signatures: Dispatcher [employer] EDMS Juan Tran [email or web address] Ryan Lucas MD MD [facility] Raegan Goodrich, RN RN iw Marie Rashid, coating manager EKG Tat1 Alex Carr RN RN Moise Camejo RN RN bp Alex miller Corrections: (The following items were deleted from the chart) 08:08 07:50 131.54 kg; Height 5 ft. 11 in.; BMI: 40.4; bp 08:51 08:31 BP 110 / 75; Pulse 89bpm; Resp 18bpm; Pulse Ox 100% RA; hj 08:51 08:45 BP 82 / 42; Pulse 89bpm; Resp 18bpm; Pulse Ox 94% RA; hj 09:19 07:50 BP 106 / 45; Pulse 82bpm; Resp 18bpm; Pulse Ox 99%; Temp 97F; 131.54 kg; Height 5 hj ft. 11 in.; BMI: 40.4; bp 09:38 09:35 BP 75 / 48; Pulse 86bpm; Resp 18bpm; Pulse Ox 95% 3 lpm Nasal Cannula; [facility]
--- NOTE | 2019-03-22 09:11 | EDPHYS ---
Physician Documentation [facility] Name: Abner Perea Age: 88 yrs Sex: Male : 1930 Arrival Date: 03/22/2019 Time: 07:46 Bed 4 Private MD: ED Physician Ryan Lucas HPI: 03/22 07:49 This 88 yrs old Male presents to ER via EMS with complaints of High Blood kdr Sugar, Unresponsive. 07:49 The patient was found down behind the bedroom door this morning by his . It is kdr unknown how long he may have been there. EMS notes that he is unresponsive except to pain. BS read "high." No obvious trauma. Onset: The symptoms/episode began/occurred at an unknown time. Severity of symptoms: At their worst the symptoms were moderate severe incapacitating just prior to arrival, in the emergency department the symptoms are unchanged. It is unknown whether or not the patient has had similar symptoms in the past. It is unknown whether or not the patient has recently seen a physician. Historical: - Allergies: 07:50 No Known Allergies; hj - Home Meds: 08:42 aspirin 81 mg Oral TbEC 1 tab once daily [Active]; bumetanide 2 mg Oral tab 1.5 tab 2 iw times per day [Active]; Isosorbide 30mg Daily [Active]; Levemir 100 unit/mL subcutaneous soln [Active]; levothyroxine 88 mcg tab 1 tab once daily [Active]; levothyroxine 200 mcg tab 1 tab once daily [Active]; Novolog 100 unit/mL Sub-Q soln three times a day [Active]; simvastatin 80 mg Oral tab daily [Active]; tamsulosin 0.4 mg Oral cp24 1 cap once daily [Active]; - PMHx: 07:50 Diabetes - IDDM; Hypertension; Hypothyroidism; Myocardial infarction; hj - PSHx: 07:50 None; hj - Immunization history:: Adult Immunizations up to date. - Social history:: Smoking status: Patient/guardian denies using tobacco, Patient/guardian denies using alcohol. - Ebola Screening: : Patient negative for fever greater than or equal to 101.5 degrees Fahrenheit, and additional compatible Ebola Virus Disease symptoms Patient denies exposure to infectious person Patient denies travel to an Ebola-affected area in the 21 days before illness onset. ROS: 07:49 Constitutional: Unable to obtain due to AMS kdr Exam: 07:49 Constitutional: This is a well developed, well nourished patient who is awake, alert, kdr and in no acute distress. Head/Face: Normocephalic, atraumatic. Neck: Trachea midline, no thyromegaly or masses palpated, and no cervical lymphadenopathy. Supple, full range of motion without nuchal rigidity, or vertebral point tenderness. No Meningismus. Chest/axilla: Normal chest wall appearance and motion. Nontender with no deformity. No lesions are appreciated. Cardiovascular: Regular rate and rhythm with a normal S1 and S2. No gallops, murmurs, or rubs. Normal PMI, no JVD. No pulse deficits. Back: No spinal tenderness. No costovertebral tenderness. Full range of motion. 07:49 Neuro: The patient is unresponsive to voice, withdraws to pain but does not localize, pupils equal. 07:55 Skin: Turgor: The patient has numerous ecchymotic areas on his upper extremities. No kdr obvious cellulitis. 07:55 Psych: Unable to evaluate. Vital Signs: 07:50 BP 106 / 45; Pulse 82; Resp 18; Temp 97; Pulse Ox 99% ; Weight 108.8 kg; Height 5 ft. 11 in. (180.34 cm); 08:31 BP 110 / 75; Pulse 89; Resp 20; Pulse Ox 100% on R/A; hj 08:45 BP 82 / 42; Pulse 89; Resp 40; Pulse Ox 94% on R/A; 08:51 BP 95 / 51; Pulse 89; Resp 37; Pulse Ox 95% on 3 lpm NC; hj 09:35 BP 75 / 48; Pulse 86; Resp 24; Pulse Ox 95% on 3 lpm NC; 09:52 BP 85 / 46; Pulse 87; Resp 22; Pulse Ox 97% on 3 lpm NC; 07:50 Body Mass Index 33.45 (108.80 kg, 180.34 cm) Tiffany Coma Score: 07:49 Eye Response: none(1). Verbal Response: none(1). Motor Response: withdraws from kdr pain(4). Total: 6. MDM: 07:54 Data reviewed: vital signs, nurses notes. ED course: GCS initially 6 - airway protected kdr will hold on intubation at this time. 08:40 ED course: D/w Dr. Diallo, he reviewed the EKG. Did not advised laborer vineyard intervention kdr at this time.. 08:49 ED course: Discussed with daughter (Yudy Perea) she informed me that the patient is kdr DNR. 09:10 Patient medically screened. kdr 09:12 Counseling: I had a detailed discussion with the patient and/or guardian regarding: the kdr historical points, exam findings, and any diagnostic results supporting the discharge/admit diagnosis, lab results, radiology results, the need for further work-up and treatment in the hospital. Physician consultation: Franklin Diallo MD regarding consult, patient's condition, need to evaluate the patient as soon as possible, and will see patient in unit. Physician consultation: Torres Puga MD regarding admission, to the ICU, and will see patient in unit, would like medications started, Bicarb. Admission orders: after a detailed discussion of the patient's condition and case, the admit orders are written by me. 03/22 07:47 Order name: Basic Metabolic Panel; Complete Time: 09:03 kdr 03/22 07:47 Order name: CBC with Diff; Complete Time: 10:34 kdr 03/22 07:47 Order name: LFT's; Complete Time: 09:03 kdr 03/22 07:47 Order name: Magnesium; Complete Time: 09:03 kdr 03/22 07:47 Order name: NT PRO-BNP; Complete Time: 09:03 kdr 03/22 07:47 Order name: PT-INR; Complete Time: 08:41 kdr 03/22 07:47 Order name: Troponin (emerg Dept Use Only); Complete Time: 09:03 kdr 03/22 07:47 Order name: ABG; Complete Time: 10:34 kdr 03/22 07:49 Order name: Blood Culture Adult (2) kdr 03/22 07:49 Order name: Ckmb; Complete Time: 09:03 kdr 03/22 07:49 Order name: CPK; Complete Time: 09:03 kdr 03/22 07:49 Order name: Lactate; Complete Time: 08:41 kdr 03/22 07:49 Order name: Lipase; Complete Time: 09:03 kdr 03/22 07:49 Order name: Procalcitonin; Complete Time: 08:54 kdr 03/22 07:47 Order name: XRAY Chest (1 view); Complete Time: 10:34 kdr 03/22 07:47 Order name: CT Traumagram (Head C Spine CAP wo con); Complete Time: 08:41 kdr 03/22 07:49 Order name: Ptt, Activated; Complete Time: 08:41 kdr 03/22 07:49 Order name: Urine Microscopic Only; Complete Time: 10:34 kdr 03/22 07:56 Order name: glucometer results - FOR PT WITH NO ID; Complete Time: 10:34 iw 03/22 08:21 Order name: CBC Smear Scan; Complete Time: 10:34 EDMS 03/22 08:43 Order name: Urine Dipstick--Ancillary (enter results); Complete Time: 10:34 bd 03/22 09:46 Order name: Chem 7 03/22 10:29 Order name: ABG Arterial Blood Gas; Complete Time: 10:34 EDMS 03/22 07:47 Order name: EKG; Complete Time: 07:48 kdr 03/22 07:47 Order name: Cardiac monitoring; Complete Time: 07:52 kdr 03/22 07:47 Order name: EKG - Nurse/Tech; Complete Time: 08:18 kdr 03/22 07:47 Order name: IV Saline Lock; Complete Time: 07:53 kdr 03/22 07:47 Order name: Labs collected and sent; Complete Time: 08:18 kdr 03/22 07:47 Order name: O2 Per Protocol; Complete Time: 07:53 kdr 03/22 07:47 Order name: O2 Sat Monitoring; Complete Time: 07:53 kdr 03/22 07:49 Order name: Accucheck; Complete Time: 08:14 kdr 03/22 07:49 Order name: IV Saline Lock - Large Bore; Complete Time: 07:52 kdr 03/22 07:49 Order name: Urine Dipstick-Ancillary (obtain specimen); Complete Time: 08:44 kdr 03/22 09:27 Order name: CONS Pharmacy Consult EDMS 03/22 09:27 Order name: CONS Physician Consult EDMS 03/22 09:27 Order name: NPO; Complete Time: 09:58 EDMS Administered Medications: 08:00 Drug: Insulin Regular Human 10 units {Co-Signature: silvia (Alex Carr RN).} Route: IVP; bp Site: right jugular; 08:21 Follow up: Response: No adverse reaction hj 08:20 Drug: Insulin Drip - (Insulin Regular Human 100 units, NS 0.9% 100 ml) {Co-Signature: bp vega (Alex Carr RN).} Route: IV; Rate: calculated rate; Site: right jugular; 08:37 Drug: NS 0.9% 500 ml Route: IV; Rate: bolus; Site: left antecubital; hj 09:15 Follow up: IV Status: Completed infusion hj 08:38 Drug: Rocephin - (cefTRIAXone) 1 grams Route: IVPB; Infused Over: 30 mins; Site: left hj antecubital; 09:16 Follow up: IV Status: Completed infusion hj 08:49 Drug: NS 0.9% (30 ml/kg) 30 ml/kg Route: IV; Rate: bolus; Site: left antecubital; hj 09:15 Follow up: IV Status: Infusion continued hj 08:59 Drug: vancoMYCIN 1.5 grams Route: IVPB; Rate: calculated rate; Site: left antecubital; hj 09:16 Follow up: IV Status: Completed infusion hj 09:09 Drug: Sodium Bicarbonate 1 amp Route: IVP; Site: left antecubital; hj 09:13 Follow up: Response: No adverse reaction hj 09:11 Drug: Aspirin Suppository 300 mg Route: WA; hj 09:32 Follow up: Response: No adverse reaction hj 09:11 Drug: Heparin ([place]-Bolus No thrombolytic) - HEParin 60 units/kg {Co-Signature: iw (Raegan Goodrich RN).} Route: IVP; Site: left antecubital; 09:33 Follow up: Response: No adverse reaction hj Point of Care Testing: Blood Glucose: 07:56 Blood Glucose: High (>450 mg/dL); iw 09:35 Blood Glucose: High (>450 mg/dL); hj Ranges: Critical Glucose Levels:Adult <50 mg/dl or >400 mg/dl <40 mg/dl or >180 mg/dl Disposition: 03/22/19 09:10 Hospitalization ordered by Torres Puga for Inpatient Admission. Preliminary diagnosis is DKA, NSTEMI. - Bed requested for Intensive Care Unit. - Status is Inpatient Admission. hj - Condition is Serious. - Problem is new. - Symptoms have improved. UTI on Admission? No Critical care time excluding procedures: 10:24 Critical care time: Bedside Care: 30 minutes, Consultation: 10 minutes, Family kdr Intervention: 10 minutes. Total time: 50 minutes Signatures: Dispatcher [employer] EDJennifer Bentley Kevin, MD MD kdr Raegan Goodrich, RN IFTIKHAR iw Alex Carr RN IFTIKHAR Moise Camejo RN RN Alex Goodrich RN iw Corrections: (The following items were deleted from the chart) 09:57 09:10 Hospitalization Ordered by Torres Puga MD for Inpatient Admission. Preliminary bd diagnosis is DKA, NSTEMI. Bed requested for Intensive Care Unit. Status is Inpatient Admission. Condition is Serious. Problem is new. Symptoms have improved. UTI on Admission? No. kdr 10:33 09:57 03/22/2019 09:10 Hospitalization Ordered by Torres Puga MD for Inpatient hj Admission. Preliminary diagnosis is DKA, NSTEMI. Bed requested for Intensive Care Unit. Status is Inpatient Admission. Condition is Serious. Problem is new. Symptoms have improved. UTI on Admission? No. bd
[2019-03-22 09:17] LABS: Urine Amorphous Sediment 2+ /HPF (NONE SEEN); Urine Bacteria NONE SEEN /HPF (NONE SEEN); Urine Culture Reflex Order NOT NEEDED; Urine RBC <5 /HPF (NONE SEEN)
[2019-03-22] MEDS ORDERED: GLUCAGON 1 MG/VIAL IM PRN (09:17)
[2019-03-22] MEDS ORDERED: ONDANSETRON 4 MG/2 ML VIAL IV PRN (09:17)
[2019-03-22] MEDS ORDERED: D50W 25 GM/50 ML SYRINGE IV PRN (09:17)
[2019-03-22] MEDS ORDERED: NA CHLORIDE 0.9% 1,000 ML IV ONE (09:17)
[2019-03-22 09:31] LABS: Anisocytosis 1+; Blood Morphology Comment NOTED (NOT SEEN); Macrocytosis 1+; Platelet Estimate ADEQ; Urine White Blood Cell Casts OK
[2019-03-22] MEDS ORDERED: HEPARIN 5000 UNIT/ML 1 ML VIAL ONE (09:33)
--- NOTE | 2019-03-22 09:34 | RAD REPORT ---
EXAM DESCRIPTION: RAD - Chest Single View - 03/22/2019 8:59 am CLINICAL HISTORY: Patient found unresponsive COMPARISON: February 09, 2019 TECHNIQUE: AP portable chest image was obtained 0847 hours . FINDINGS: No focal mass or consolidation. Heart size, vasculature and lung markings are increased fr om the January examination suggesting a mild failure or volume overload. Trachea is midline. No measura ble pleural effusion and no pneumothorax. No acute bony abnormality seen. No acute aortic findings lincoln spected. IMPRESSION: Heart, vasculature and lung markings have all increased since January comparison. No perip heral mass or consolidation. Findings are suspicious for early or mild failure/ volume overload.
[2019-03-22 09:35] LABS: Blood Gas Oxyhemoglobin 86.3 % (94-97)
[2019-03-22] MEDS ORDERED: ASPIRIN 600 MG/SUPP PR ONE (09:36)
[2019-03-22] MEDS: D5 0.45 NS 1,000 ML IV SCH ×2 (10:00→16:40)
[2019-03-22] MEDS ORDERED: NACHLORIDE 0.45% 1,000 ML IV SCH (10:00)
[2019-03-22 10:27] LABS: Blood O2 Saturation 89.8 % (92-98.5)
--- NOTE | 2019-03-22 10:39 | EKG ---
Test Date: 2019-03-22 Test Time: 08:16:22 Financial Systems Manager: MEGAN MEASUREMENT RESULTS: Intervals: Rate: 83 [place]: QRSD: 118 QT: 388 QTc: 455 [place]: P: [place]: QRS: 52 T: 141 INTERPRETIVE STATEMENTS: Atrial fibrillation with a competing junctional pacemaker Nonspecific intraventricular conduction delay ST elevation, consider inferior injury or acute infarct Abnormal ECG Compared to ECG 01/19/2019 10:06:35 Intraventricular conduction delay now present ST (T wave) deviation now present Sinus rhythm no longer present First degree AV block no longer present Electronically Signed On 03-22-19 10:38:47 CDT by Franklin Diallo
[2019-03-22 10:46] LABS: Potassium 4.1 mmol/L (3.5-5.1)
[2019-03-22] MEDS ORDERED: INSULIN -REGULAR HUMAN 50 UNIT/0.5 ML ML SQ SCH (11:30)
[2019-03-22] MEDS ORDERED: HEPARIN 10,000 UNIT/10 ML VIAL IV PRN (12:00)
[2019-03-22] MEDS ORDERED: HEPARIN/D5W 25,000 UNIT/500 ML BAG IV PRN (12:00)
[2019-03-22] MEDS: NACHLORIDE 0.45% 1,000 ML with NA BICARB 8.4% 150 MEQ IV SCH ×4 (12:07→20:12)
[2019-03-22 14:44] LABS: Magnesium 2.3 mg/dL (1.8-2.4); Phosphorus 5.1 mg/dL (2.5-4.9)
[2019-03-22 14:50] LABS: Troponin I 31.8 ng/mL (0.0-0.045)
--- NOTE | 2019-03-22 15:00 | CON ---
History Of Present Illness: Mr. Perea is 88. He was brought to the ER by EMS. He was found to be un responsive by his . His EKG shows atrial fib and diffuse ST changes, some of them could be inter preted as ischemia. It is very borderline in the inferior leads. When he was found by his family, hi damon was not unconscious and when the EMS got there, he had a blood pressure and pulse, but he has numer ous metabolic abnormalities that probably account for his obtunded or nearly comatose state. These i nclude a pH of 7.0, bicarbonate level of 9, indicating severe metabolic acidosis and a blood sugar of 1200 or higher. The patient is officially do not resuscitate. He has a history of CAD that has not required stents. His CAD is all a matter of distal vessel stenosis. He is not amenable to revascul arization. He is officially a do not resuscitate patient now. Physical Examination: General: He is obtunded. His respiratory pattern is stable. Does not appear to be hyperpneic. Lungs: Reveal breath sounds are equal bilaterally. There are some fine crackles. Heart: Irregular. Abdomen: Soft. Extremities: Mild edema distal pulses barely palpable. Chest x-ray, mild interstitial edema. Laboratory Data: The troponin level is elevated. N-terminal B-natriuretic peptide is elevated. Impression: The patient has severe metabolic problems. He has known CAD. 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 I am not sure if there is an acute coronary occlusion. If so, it is of something rather small. I do not recommend an emergency cardiac cath-wi th the patient in a do not resuscitate status, no central lines are to be done. No intubation is to be done. We should try and correct his metabolic abnormalities, see if he wakes up and see what he would wish to have done, see if he is having chest pain. An echoc ardiogram will be done later today. RASHEED Voice ID: [id number] Report ID: [id number]
[2019-03-22 19:49] LABS: Absolute Lymphocytes (CBC) 1.5 K/uL (0.7-4.9); Absolute Monocytes 1.8 K/uL (0.1-1.3); Absolute Neutrophil 14.8 K/uL (1.8-8.0); Basophils % 0.4 % (0-1.3); Hematocrit 34.2 % (39.6-49.0); Lymphocytes % 8.1 % (15.3-44.8); MPV 11.5 fL (7.6-11.3); Monocytes % 9.8 % (3.3-12.3); RBC Red Blood Cell Count 3.79 M/uL (4.33-5.43)
[2019-03-22] MEDS ORDERED: NA CHLORIDE 0.9% 250 ML ONE (19:49)
[2019-03-22] MEDS ORDERED: NA CHLORIDE 0.9% 250 ML IV PRN (19:49)
[2019-03-22 20:07] LABS: Potassium 3.9 mmol/L (3.5-5.1)
[2019-03-22] MEDS: NA CHLORIDE 0.9% 1,000 ML IV SCH (21:00)
[2019-03-22] MEDS: Ringers Lactate 1,000 ML IV SCH (21:09)
[2019-03-22] MEDS ORDERED: ACETAMINOPHEN 650MG/RECT SUPP PR PRN (22:11)
[2019-03-23] MEDS: PIPER/TAZO/NS 2.25gm 2.25 GM/50 ML BAG IVPB SCH ×3 (01:00→16:50)
[2019-03-23] MEDS ORDERED: PIPERACIL/TAZO 2.25 GM VIAL IV ONE (01:14)
[2019-03-23] MEDS ORDERED: NA CHLORIDE 0.9% 50 ML ONE (01:15)
[2019-03-23] MEDS ORDERED: KCL 20 MEQ/100 mL IVPB 20 MEQ/100 ML BAG IV SCH ×2 (02:00→06:30)
[2019-03-23 05:59] LABS: Absolute Lymphocytes (CBC) 1.8 K/uL (0.7-4.9); Absolute Monocytes 2.2 K/uL (0.1-1.3); Absolute Neutrophil 17.4 K/uL (1.8-8.0); Basophils % 0.2 % (0-1.3); Eosinophils % 0.1 % (0-4.4); Hematocrit 35.3 % (39.6-49.0); Lymphocytes % 8.2 % (15.3-44.8); MPV 11.7 fL (7.6-11.3); Monocytes % 10.3 % (3.3-12.3)
[2019-03-23 06:12] LABS: Magnesium 2.1 mg/dL (1.8-2.4); Phosphorus 2.8 mg/dL (2.5-4.9); Potassium 3.8 mmol/L (3.5-5.1)
--- NOTE | 2019-03-23 06:52 | HP ---
Date of Admission: 03/22/2019 Chief Complaint: Fall and unresponsiveness. History Of Present Illness: This is an 88-year-old male patient with brittle diabetes, who was doing fine in his normal usual state of health, takes all his medications regularly, and checks his blood sugar regularly. His blood sugar has been in range of 100-400, which is his usual baseline, nothing unusual about it. He did not have any physical complaints over the weekend. He has spend the holiday with the family and was feeling fine. Did not voice any complaints at all, but his blood sugar was running high, lot higher over the weekend than baseline, but he did not mention it to his daughter when he saw his daughter over the weekend. We do not know how high it was, but we believe it was higher than his usual baseline and this morning found him unresponsive on the floor and ambulance was called and he was brought into emergency room. After he was evaluated in the ER, he was diagnosed as having diabetic ketoacidosis with concerns about myocardial infarction, possibility of pneumonia, and he was admitted to intensive care unit. The patient has received appropriate treatment for all these multiple medical problems. I saw him this evening. He continues to remain unresponsive. Allergies: NO KNOWN ALLERGIES. Medications: List reviewed. Review of Systems: RESIDENTIAL CONCIERGE: As mentioned above. Endocrine: As mentioned above. All other systems reviewed and negative. Past Medical History: Significant for stroke in January of this year; hypertension; osteoarthritis, multiple sites; chronic kidney disease, stage 4; hyperlipidemia; type 2 diabetes mellitus; diverticulosis; leg edema; hypothyroidism; benign prostatic hypertrophy; and coronary artery disease. Past Surgical History: Cataract surgery, tonsillectomy. Family History: Significant for hypertension, stroke, and gastric cancer. Social History: Negative for smoking and alcohol use. Physical Examination: Vital Signs: Height 5 feet 11 inches, weight 233 pounds, temperature 97, pulse 82, respiratory rate 18, blood pressure 106/45. General: The patient unresponsive, not in any distress, lying in bed. HEENT: Head atraumatic, normocephalic. Conjunctivae nonerythematous. Sclerae white. Mouth, no thrush or edema noted. Ears/Nose, no mass, lesion, discharge noted. Neck: Supple. No JVD, lymph nodes, bruit, thyromegaly noted. Lungs: Bilateral good equal air entry with some crackles in lower lung finn present. Heart: Normal heart sounds, no murmur or gallop. Abdomen: Soft, bowel sounds normal. No guarding, rigidity, tenderness, mass, hepatosplenomegaly, distention, or bruit noted. Extremities: No leg edema. No calf tenderness. Lymphatics: No lymph node enlargement in neck, supraclavicular, infraclavicular region. Chest: Unremarkable. External Genitalia: Deferred. Rectal: Deferred. RESIDENTIAL CONCIERGE: Unable to examine in detail as patient is unresponsive. Dermatology: The patient has multiple bruising on the forearms. Laboratory Data: White count 13.1, hemoglobin 11, platelets 211. Blood gas: Initial blood gas pH 7.04, pCO2 30.3, PO2 74.3, saturation 88% on 21% FiO2. Repeat blood gas pH 7.01, pCO2 36.8, pO2 79.9, oxygen saturation 89.8% on 32% FiO2. His initial chemistry, sodium 126, potassium 5.4, chloride 85, bicarb 9, BUN 71, creatinine 3.70, glucose 1260. Liver function tests unremarkable. Initial troponin 5.58. Lactic acid 5.1. Last chemistry this afternoon, sodium 137, potassium 4, chloride 97, bicarb 17, BUN 67, creatinine 3.88, glucose 814. Troponin 31.8. Urinalysis negative. Chest x-ray, vascular markings are increased since January. EKG: Atrial fibrillation. CAT scan of the head, neck, chest, abdomen, pelvis, no acute traumatic findings noted. No acute intracranial changes. Left lung base atelectasis present. Impression: 1. Type 2 diabetes mellitus, uncontrolled, with diabetic ketoacidosis. 2. Volume depletion. 3. Tyr-YJ-lpvmzkvcq myocardial infarction. 4. Coronary artery disease. 5. Atrial fibrillation. 6. Rule out pneumonia. 7. Hypertension. 8. Hyperlipidemia. 9. Hypothyroidism. 10. Anemia. Plan: We will admit the patient to hospital for further evaluation and management of this problem. The patient is appropriate for inpatient and is expected to spend too much time in the hospital. Since he came into emergency room, IV fluid was started, IV insulin drip was started, IV antibiotic ceftriaxone was started. We will continue to monitor fingerstick blood sugar every hour and continue to titrate insulin drip accordingly. In the emergency room when I was contacted, 1 amp of bicarb was ordered to be given and subsequently the patient was given bicarb drip which he continues to remain on. I have ordered another blood work to be done this evening and then I will decide about bicarb drip as well as other IV fluid. His systolic blood pressure was around 90 to 91 when I saw him this evening, so 250 cc IV fluid bolus was ordered. The patient was getting heparin drip and it was discontinued this afternoon because of gross hematuria that was noted in Enamorado catheter bag and now use of anticoagulation is contraindicated in view of gross hematuria. Cardiology consultation was obtained from Dr. Diallo. If his mental status does not improve after improvement in diabetic ketoacidosis, then one has to worry about another stroke. At this point, prognosis is very poor. Details were discussed with the patient's daughter on the phone. He has a DNR order in place and the family has requested conservative treatment for him and we agree with that. I will see him tomorrow for followup. AUNG/AGUILA Voice ID: [id number]
[2019-03-23] MEDS: NA CHLORIDE 0.9% 1,000 ML IV SCH ×3 (07:00→16:47)
[2019-03-23] MEDS: Ringers Lactate 1,000 ML IV SCH ×2 (07:00→16:47)
--- NOTE | 2019-03-23 08:22 | RAD REPORT ---
EXAM DESCRIPTION: RAD - Chest Single View - 03/23/2019 7:45 am CLINICAL HISTORY: pneumonia Chest pain. COMPARISON: Chest Single View dated 03/22/2019; Chest Single View dated 02/09/2019; Chest Single View dated 01/20/2019; Chest Single View dated 01/17/2019 FINDINGS: Portable technique limits examination quality. Mild pulmonary edema is again noted, similar to prior study. Small left pleural effusion is suspected . The heart is moderately enlarged in size. No displaced fractures. IMPRESSION: Stable findings of mild CHF identify.
[2019-03-23 08:29] LABS: Blood Morphology Comment NOT SEEN (NOT SEEN); Platelet Estimate ADEQ
[2019-03-23] MEDS: HEPARIN 5000 UNIT/ML 1 ML VIAL SQ SCH ×2 (08:35→22:02)
[2019-03-23] MEDS ORDERED: CEFTRIAXONE/SWI 1gm 1 GM/10 ML SYR IV SCH (09:00)
[2019-03-23] MEDS ORDERED: CEFTRIAXONE 1 GM/NS 50 ML 50 ML IV SCH (09:00)
[2019-03-23] MEDS ORDERED: LORazepam 2 MG/ML VIAL IV ONE (09:45)
[2019-03-23] MEDS ORDERED: Ringers Lactate 1,000 ML IV SCH ×2 (19:00→23:00)
[2019-03-23] MEDS ORDERED: NA CHLORIDE 0.9% 1,000 ML IV SCH ×2 (19:00→23:00)
[2019-03-23] MEDS: LORazepam 2 MG/ML VIAL IV PRN (21:30)
[2019-03-23] MEDS ORDERED: FUROSEMIDE 40 MG/4 ML VIAL IV ONE (22:35)
[2019-03-24] MEDS: PIPER/TAZO/NS 2.25gm 2.25 GM/50 ML BAG IVPB SCH ×3 (00:29→18:39)
--- NOTE | 2019-03-24 01:04 | PN ---
Date of Progress Note: 03/23/2019 Subjective: The patient was seen this morning for followup. No new complaints, problems reported by nursing staff except reported earlier this morning, the patient had lot of chest congestion and gurg ling type of sound in his chest. Deep suction was provided and nurse was able to clear lot of mucus secretion, which appeared yellowish in color from his throat and upper air passages and that actually helped. During that time, the patient had desaturated requiring 100% oxygen for a short time. Afte r that, he relaxed and went to sleep and was maintaining adequate oxygenation with nasal cannula oxyg en. When I saw him, he was lying in bed, not in any distress, sleeping. He was able to open his eye s upon verbal commands and I believe he did recognize me, but did not communicate with me. He did fo llow simple commands by squeezing my hands, but handgrip was very weak. Intake and output records re viewed. Objective: Vital Signs: Reviewed. HEENT: Unremarkable. Lungs: Clear to auscultation except very minimum wheezing noted in lower lung finn. Heart: Sounds normal. Abdomen: Soft. Bowel sounds normal. No guarding, rigidity, tenderness, distention. Extremities: No leg edema. Laboratory Data: White count 21.4, hemoglobin 11.5, platelets 182. Sodium 142, potassium 3.8, chlor eva 105, bicarb 29, BUN 63, creatinine 3.29, glucose 256. Impression: 1.Diabetic ketoacidosis. 2.Non-STEMI. 3.Pneumonia. 4.Hypertension. 5.Gross hematuria. 6.Volume depletion. Plan: We will go ahead and continue IV fluid, insulin drip per order. Monitor fingerstick blood sug ar closely. Continue current IV antibiotics. The patient still has gross hematuria and use of IV he priyanka is contraindicated as of today. We will have him receive heparin subcutaneous injection for DV T prophylaxis. We will monitor his blood work. The patient will continue to remain in ICU. During the course of day today, he had lot of agitation and Ativan was ordered. Details were discussed with the patient's daughter this morning. I will see him tomorrow for followup. AUNG/MODL Voice ID: [id number] Report ID: [id number]
[2019-03-24 05:38] LABS: Absolute Lymphocytes (CBC) 1.1 K/uL (0.7-4.9); Absolute Monocytes 1.4 K/uL (0.1-1.3); Absolute Neutrophil 13.4 K/uL (1.8-8.0); Basophils % 0.4 % (0-1.3); Lymphocytes % 6.9 % (15.3-44.8); RBC Red Blood Cell Count 3.87 M/uL (4.33-5.43)
[2019-03-24 05:41] LABS: Magnesium 2.1 mg/dL (1.8-2.4); Phosphorus 3.5 mg/dL (2.5-4.9); Potassium 3.7 mmol/L (3.5-5.1)
[2019-03-24] MEDS ORDERED: METOPROLOL TARTRATE 5 MG/5 ML INJ IV STA (07:57)
[2019-03-24] MEDS ORDERED: FUROSEMIDE 40 MG/4 ML VIAL IV ONE (07:57)
[2019-03-24] MEDS: LORazepam 2 MG/ML VIAL IV PRN (08:24)
[2019-03-24] MEDS: HEPARIN 5000 UNIT/ML 1 ML VIAL SQ SCH ×2 (08:27→22:16)
[2019-03-24] MEDS: METOPROLOL TARTRATE 5 MG/5 ML INJ IV SCH ×2 (13:28→18:39)
--- NOTE | 2019-03-24 15:29 | EKG ---
Test Date: 2019-03-23 Test Time: 21:35:21 Electron Beam Welder Setter: NESTOR MEASUREMENT RESULTS: Intervals: Rate: 121 MT: QRSD: 102 QT: 306 QTc: 434 [place]: P: MT: QRS: 55 T: 158 INTERPRETIVE STATEMENTS: Atrial fibrillation with rapid ventricular response Low voltage QRS Cannot rule out Anterior infarct, age undetermined Abnormal ECG Compared to ECG 03/22/2019 08:16:22 Low QRS voltage now present Intraventricular conduction delay no longer present Myocardial infarct finding still present Electronically Signed On 03-24-19 15:29:11 CDT by Franklin Diallo
--- NOTE | 2019-03-25 00:25 | PN ---
Date of Progress Note: 03/23/2019 The patient was admitted to Dr. Puga on 03/22/2019, was seen by Dr. Diallo for unresponsiveness, meta bolic acidosis, glucose blood level greater than 1200 with DKA. The patient is DNR. Overnight, he h as improved. Mental status is improved. Sugar is improved. He has remained in sinus rhythm. He quinones s diffuse coronary artery disease, that is being treated medically. No arrhythmia. No congestive he art failure. No chest pain reported. We will continue to follow on an as-needed basis. I agree wit h the medical therapy. NB/MODL Voice ID: [id number] Report ID: [id number]
--- NOTE | 2019-03-25 00:35 | PN ---
Date of Progress Note: 03/24/2019 Subjective: The patient was seen for followup this morning. No new complaints or problems reported by nursing staff except the patient was having shortness of breath with a lot of gurgling type of maria teresa se in his chest last night and Lasix 40 mg IV x1 dose was ordered. Early this morning, the patient w ent into atrial fibrillation with rapid ventricular rate; when I saw him in ICU, his blood pressure w as stable, but heart rate was anywhere between 130-150, atrial fibrillation. He was little more awak e today, but did not follow any commands. Objective: Vital Signs: Reviewed. HEENT: Unremarkable. Lungs: Bilateral scattered rales. Heart: Sounds normal. Abdomen: Soft. Bowel sounds normal. No guarding, rigidity, tenderness, distention. Extremities: No leg edema. Laboratory Data: White count better today down to 16, hemoglobin 11.6, platelets 168. Sodium 147, p otassium 3.7, chloride 110, bicarb 29, BUN 56, creatinine 2.98, glucose 252. Impression: 1.Diabetic ketoacidosis. 2.Pneumonia. 3.Non-STEMI. 4.Chronic kidney disease, stage 4. 5.Anemia due to chronic kidney disease. 6.Hypertension. 7.Atrial fibrillation. 8.Coronary artery disease. Plan: This morning when I saw him, another dose of Lasix 40 mg IV as well as IV Lopressor were order ed to be given every 6 hours. We will continue heparin for DVT prophylaxis 5000 units every 12 hours . The patient still has gross hematuria, but that has improved a little bit. He was on insulin drip at 2 units/hour. We will continue that. In the next day or 2 days, we will have to start addressin g nutritional status and if he is not able to swallow by that time, we will have to consider at least discussion with the family about Dobhoff tube and if we do use such tube, we will have to restrain h im as he keeps on pulling out oxygen mask right now and definitely he is going to pull out the Dobhof f tube, so we will have to have all this discussion if it becomes necessary with the family. Overall , prognosis is poor. AUNG/MODL Voice ID: [id number] Report ID: [id number]
[2019-03-25] MEDS: PIPER/TAZO/NS 2.25gm 2.25 GM/50 ML BAG IVPB SCH ×3 (01:14→17:05)
[2019-03-25] MEDS: METOPROLOL TARTRATE 5 MG/5 ML INJ IV SCH ×4 (01:40→18:13)
[2019-03-25 07:52] LABS: Absolute Lymphocytes (CBC) 1.1 K/uL (0.7-4.9); Absolute Monocytes 0.7 K/uL (0.1-1.3); Absolute Neutrophil 7.9 K/uL (1.8-8.0); Basophils % 0.5 % (0-1.3); Eosinophils % 0.4 % (0-4.4); Hematocrit 34.5 % (39.6-49.0); Lymphocytes % 11.6 % (15.3-44.8); MPV 11.6 fL (7.6-11.3); Monocytes % 7.2 % (3.3-12.3); RBC Red Blood Cell Count 3.75 M/uL (4.33-5.43)
[2019-03-25 08:00] LABS: Magnesium 2.3 mg/dL (1.8-2.4); Potassium 3.7 mmol/L (3.5-5.1)
[2019-03-25] MEDS: HEPARIN 5000 UNIT/ML 1 ML VIAL SQ SCH ×2 (08:51→20:38)
[2019-03-25] MEDS: NACHLORIDE 0.45% 1,000 ML IV SCH (08:52)
--- NOTE | 2019-03-25 09:49 | RAD REPORT ---
EXAM DESCRIPTION: RAD - Abdomen 1 View (KUB) - 03/25/2019 9:25 am CLINICAL HISTORY: Device placement Dobhoff tube placement FINDINGS: The tip of a Dobhoff tube lies within the distal stomach.
--- NOTE | 2019-03-25 11:03 | RAD REPORT ---
EXAM DESCRIPTION: RAD - Abdomen 1 View (KUB) - 03/25/2019 10:49 am CLINICAL HISTORY: Dobhoff placement Pain COMPARISON: Abdomen 1 View (KUB) dated 03/25/2019 FINDINGS: The tip of the enteric tube is in the stomach.
--- NOTE | 2019-03-25 11:26 | RAD REPORT ---
EXAM DESCRIPTION: RAD - Chest Single View - 03/24/2019 9:54 pm CLINICAL HISTORY: The patient is 88 years old and is Male; PICC Placement TECHNIQUE: Frontal view of the chest. COMPARISON: Chest radiograph March 23, 2019. FINDINGS: LUNGS: Unremarkable. No consolidation. PLEURAL SPACE: A small left pleural effusion persists. No pneumothorax. HEART: The cardiac silhouette is enlarged and stable. MEDIASTINUM: Unremarkable. BONES/JOINTS: The bones and soft tissues are stable. VASCULATURE: Prominence of central vasculature is noted. TUBES, LINES AND DEVICES: There has been placement of a right upper extremity PICC with the tip in the SVC. IMPRESSION: 1. Right upper extremity PICC with the tip in the SVC. 2. Otherwise, stable chest. Electronically signed by: Shira Solis MD 03/24/2019 9:58 PM CDT Due to temporary technical issues with the PACS/Fluency reporting system, reports are being signed by the in house radiologist as a courtesy to ensure prompt reporting. The interpreting radiologist is f ully responsible for the content of the report.
[2019-03-25] MEDS ORDERED: GLUCERNA 1.2 CAL 1,000 ML BOT RTH SCH (12:00)
[2019-03-25] MEDS: IPRATROPIUM BROM 0.5MG/2.5ML NEB SCH ×2 (14:25→21:00)
[2019-03-25] MEDS: ACETYLCYST 20% 4 ML VIAL IH SCH ×2 (14:25→21:00)
[2019-03-26] MEDS: PIPER/TAZO/NS 2.25gm 2.25 GM/50 ML BAG IVPB SCH ×3 (01:52→16:37)
[2019-03-26] MEDS: METOPROLOL TARTRATE 5 MG/5 ML INJ IV SCH (01:52)
[2019-03-26] MEDS: IPRATROPIUM BROM 0.5MG/2.5ML NEB SCH ×4 (02:00→20:00)
--- NOTE | 2019-03-26 02:04 | PN ---
Date of Progress Note: 03/25/2019 Subjective: The patient was seen this morning for followup, lying in bed, not in distress. He tries to open his eyes and smiles when I am trying to talk to him, unable to tell me my name, but says he recognizes me. Upon verbal command , he is trying to bdc manager my hand, but hand bdc manager is very weak on both hands. Objective: Vital Signs: Reviewed. Intake, output records reviewed. HEENT: Unremarkable. Lungs: Bilateral good equal entry. In lower lung zone scattered wheezing present. Heart: Sounds normal. Abdomen: Soft. Bowel sounds normal. No guarding, rigidity, tenderness, or distention. Extremities: No leg edema. Laboratory Data: White count is 9.8, hemoglobin 11.2, platelets 169. Sodium 152, potassium 3.7, chloride 115, bicarb 32, BUN 51, creatinine 2.74, glucose 147. Impression: 1. Diabetic ketoacidosis, resolved. 2. Pneumonia. 3. Atrial fibrillation, paroxysmal. 4. Coronary artery disease. 5. Non-ST segment elevation myocardial infarction. 6. Chronic kidney disease stage 4. Plan: We will continue current medications, continue current antibiotics. He is responding well to it. The patient has responded well to IV Lopressor yesterday, today he was in sinus rhythm. We will continue insulin drip per order for diabetes control. Continue heparin for DVT prophylaxis. He still has gross hematuria in the Enamorado catheter bag, but that seems to be improving every day. I did call his daughter this morning, talked to her, details were discussed with her and updates given. We talked about nutritional status and need for nutritional support using Dobhoff tube placement. She was agreeable, so order was written for tube placement and feeding. We will try to discontinue his insulin drip probably over next 24 to 48 hours and start him on insulin injection and then we will consider to transfer him to medical floor from ICU. AUNG/MODL Voice ID: [id number] Report ID: [id number] LINDA
[2019-03-26] MEDS: NACHLORIDE 0.45% 1,000 ML IV SCH (05:30)
[2019-03-26] MEDS ORDERED: D50W 25 GM/50 ML SYRINGE IV PRN ×3 (08:00→18:23)
[2019-03-26] MEDS ORDERED: GLUCAGON 1 MG/VIAL IM PRN ×4 (08:00→18:24)
[2019-03-26] MEDS: ACETYLCYST 20% 4 ML VIAL IH SCH ×2 (08:06→20:00)
[2019-03-26] MEDS: ASPIRIN 81 MG CHEWABLE TABLET FT SCH (08:52)
[2019-03-26] MEDS: METOPROLOL TAR 50 MG TAB FT SCH ×2 (08:52→22:53)
[2019-03-26] MEDS: CLOPIDOGREL 75 MG TABLET FT SCH (08:53)
[2019-03-26] MEDS: AMLODIPINE 5 MG TAB FT SCH ×2 (08:53→20:11)
[2019-03-26] MEDS ORDERED: INSULIN GLARGINE 100 UNITS/ML SQ SCH (09:00)
[2019-03-26] MEDS ORDERED: ASPIRIN EC 81 MG TAB PO SCH (09:00)
[2019-03-26] MEDS: HEPARIN 5000 UNIT/ML 1 ML VIAL SQ SCH ×2 (09:03→20:13)
[2019-03-26] MEDS: ISOSORBIDE DINIT 5 MG TAB FT SCH ×3 (10:27→20:12)
[2019-03-26] MEDS ORDERED: FUROSEMIDE 40 MG/4 ML VIAL IV ONE (11:59)
--- NOTE | 2019-03-26 12:23 | RAD REPORT ---
EXAM DESCRIPTION: RAD - Chest Single View - 03/26/2019 12:16 pm CLINICAL HISTORY: Wheezing, dyspnea COMPARISON: March 25, March 24 TECHNIQUE: AP portable chest image was obtained 1214 hour . FINDINGS: Elevated right hemidiaphragm again noted. PICC line and feeding tube remain in good positi on. Chronic interstitial changes are present in the right lung field not clearly different when adjusting for a slightly under inflated lung field. Left base patchy opacification similar to comparison. Rota tion distorts the mediastinum. Heart size is stable. Upper lobe vasculature within normal limits. No pneumothorax or enlarging pleural effusion. IMPRESSION: No significant change the chest from March 24 imaging.
[2019-03-26] MEDS ORDERED: INSULIN GLARGINE 100 UNITS/ML SQ ONE (14:20)
[2019-03-26] MEDS ORDERED: METOPROLOL TARTRATE 5 MG/5 ML INJ IV STA (16:20)
[2019-03-26] MEDS ORDERED: INSULIN -REGULAR HUMAN 50 UNIT/0.5 ML ML IV ONE (16:30)
[2019-03-26] MEDS ORDERED: INSULIN -REGULAR HUMAN 100 UNIT in NA CHLORIDE 0.9% 100 ML IV SCH (18:30)
[2019-03-26] MEDS ORDERED: METOPROLOL TAR 50 MG TAB FT ONE (19:00)
[2019-03-26] MEDS: INSULIN GLARGINE 100 UNITS/ML SQ SCH (20:13)
[2019-03-26] MEDS: ZINC OXIDE 20% OINTMENT 60gm TOP SCH (20:14)
--- NOTE | 2019-03-26 23:46 | PN ---
Date of Progress Note: 03/26/2019 Subjective: The patient was seen this morning for followup. No new complaints or problems reported by the patient's nurse in ICU. This morning, the patient was lying in bed. Nurse did report that du kareen last night, he was communicating a lot better, was speaking few words to sentence, and was lot m ore alert. This morning, he was more sleepy when I saw him, but did open his eyes. Objective: Vital Signs: Reviewed. HEENT: Unremarkable. Lungs: Clear to auscultation except some scattered wheezing. Not using accessory muscles of respira tion. Heart: Sounds normal. Abdomen: Soft. Bowel sounds normal. No guarding, rigidity, tenderness, distention. Extremities: No leg edema. Laboratory Data: Chest x-ray from today reviewed, unchanged from before. Impression: 1.Pneumonia. 2.Diabetic ketoacidosis, resolved. 3.Diabetes mellitus, brittle, uncontrolled. 4.Hypertension. 5.Atrial fibrillation. 6.Coronary artery disease. Plan: We will continue Dobhoff tube feeding, which he is tolerating very well. This morning, we dec ided to discontinue his insulin drip after starting him on long-acting insulin Lantus 20 units twice a day and 2 hours after the Lantus dose, his insulin drip was discontinued and we have [facility] sugar on an hourly basis. His blood sugar as of this afternoon has started to go up and now his blood sugar is between 350-400 range, so what we will do is we will put him back on insul in drip and continue Lantus insulin the way we are giving it to him, but increase the dose and our pl an is to get him off the insulin drip, that probably will happen over the weekend and try to manage h im with subcutaneous insulin injection. We will see him tomorrow for followup. We will repeat blood work tomorrow. Enamorado catheter was discontinued this morning and his urine was yellow. AUNG/MODL Voice ID: [id number] Report ID: [id number]
[2019-03-27] MEDS: PIPER/TAZO/NS 2.25gm 2.25 GM/50 ML BAG IVPB SCH ×3 (00:30→16:16)
[2019-03-27] MEDS: IPRATROPIUM BROM 0.5MG/2.5ML NEB SCH ×4 (02:00→20:00)
[2019-03-27] MEDS: LEVOTHYROXINE SOD 0.1 MG TAB FT SCH (06:02)
[2019-03-27] MEDS: LEVOTHYROXINE SOD 0.088 MG TAB FT SCH (06:03)
[2019-03-27 07:35] LABS: Absolute Lymphocytes (CBC) 1.2 K/uL (0.7-4.9); Absolute Monocytes 0.9 K/uL (0.1-1.3); Absolute Neutrophil 6.3 K/uL (1.8-8.0); Basophils % 0.4 % (0-1.3); Eosinophils % 3.6 % (0-4.4); Hematocrit 34.9 % (39.6-49.0); Lymphocytes % 14.1 % (15.3-44.8); MPV 11.5 fL (7.6-11.3); Monocytes % 10.4 % (3.3-12.3); RBC Red Blood Cell Count 3.82 M/uL (4.33-5.43)
[2019-03-27 07:42] LABS: Magnesium 2.5 mg/dL (1.8-2.4); Potassium 3.2 mmol/L (3.5-5.1)
[2019-03-27] MEDS: INSULIN GLARGINE 100 UNITS/ML SQ SCH ×2 (08:28→20:47)
[2019-03-27] MEDS: HEPARIN 5000 UNIT/ML 1 ML VIAL SQ SCH ×2 (08:29→20:44)
[2019-03-27] MEDS: ZINC OXIDE 20% OINTMENT 60gm TOP SCH ×2 (08:29→21:00)
[2019-03-27] MEDS: METOPROLOL TAR 50 MG TAB FT SCH ×2 (08:30→20:45)
[2019-03-27] MEDS: CLOPIDOGREL 75 MG TABLET FT SCH (08:30)
[2019-03-27] MEDS: ASPIRIN 81 MG CHEWABLE TABLET FT SCH (08:30)
[2019-03-27] MEDS: AMLODIPINE 5 MG TAB FT SCH ×2 (08:30→20:45)
[2019-03-27] MEDS: ISOSORBIDE DINIT 5 MG TAB FT SCH ×3 (08:32→20:46)
[2019-03-27] MEDS: ACETYLCYST 20% 4 ML VIAL IH SCH ×2 (08:55→20:00)
--- NOTE | 2019-03-27 10:14 | RAD REPORT ---
EXAM DESCRIPTION: Travis Single View03/27/2019 6:10 am CLINICAL HISTORY: Shortness of breath COMPARISON: March 24 FINDINGS: Mild right basilar opacities may represent mild pneumonia or atelectasis Mild left lung opacities have partially resolved. Heart remains enlarged. PICC line remains in place. A feeding tube is noted.
[2019-03-27] MEDS: KCL 20 MEQ/100 mL IVPB 20 MEQ/100 ML BAG IV SCH ×2 (10:43→13:22)
--- NOTE | 2019-03-27 16:32 | PN ---
Date of Progress Note: 03/27/2019 Subjective: The patient was seen this morning for followup. He was lying in bed in ICU. He looked a lot better today than last several days. He was more awake, alert, recognized me communicating and answering questions, following commands. He did participate with physical therapy, sat in the chair for a while. He is having diarrhea problem, which started since we started him on his tube feeding. He is tolerating tube feeding very well, which is at 60 cc/hour. Objective: Vital Signs: Reviewed. HEENT: Unremarkable. Lungs: Bilateral good equal entry. Presence of some wheezing and rales in lung bases. Heart: Sounds normal. Abdomen: Soft. Bowel sounds normal. No guarding, rigidity, tenderness, or distention. Extremities: No leg edema. Laboratory Data: White count 8.8, hemoglobin 11.5, platelets 185. Sodium 156, potassium 3.2, chlori de 114, bicarb 37, BUN 54, creatinine 2.43, glucose 157. Impression: 1.Pneumonia. 2.Diarrhea. 3.Hypokalemia. 4.Volume depletion. 5.Hlc-MN-jtozeavyt myocardial infarction. 6.Atrial fibrillation. 7.Hypertension. 8.Diabetes mellitus. 9.Generalized weakness. Plan: We will go ahead and continue current antibiotics. Stool for C. diff was sent. Very likely d iarrhea is due to tube feeding. We will go ahead and try some Imodium to see if that helps. Adair geronimo, continue current antibiotics. Continue tube feeding. The patient is still not able to swallow b y himself. Hopefully Friday, we will have speech therapist evaluate with modified barium swallow and then decide if he is able to swallow, and I hope that he will improve by that time as he has shown s ignificant improvement so far now as we stand today compared to last several days. He is on Lantus i nsulin 40 units subcutaneous injection twice a day as of yesterday evening. Fingerstick blood sugar readings reviewed, and we will use insulin drip if blood sugar goes higher than 200, and if it is les s than 200, we will not use insulin drip. We will see him tomorrow for followup. AUNG/MODL Voice ID: [id number] Report ID: [id number]
[2019-03-27] MEDS: LORazepam 2 MG/ML VIAL IV PRN (23:11)
[2019-03-28] MEDS: PIPER/TAZO/NS 2.25gm 2.25 GM/50 ML BAG IVPB SCH ×3 (01:11→17:38)
[2019-03-28] MEDS: IPRATROPIUM BROM 0.5MG/2.5ML NEB SCH ×4 (02:00→20:00)
[2019-03-28] MEDS: D50W 25 GM/50 ML SYRINGE IV PRN ×2 (05:37→08:44)
[2019-03-28 06:01] LABS: Potassium 3.4 mmol/L (3.5-5.1)
[2019-03-28] MEDS: LEVOTHYROXINE SOD 0.088 MG TAB FT SCH (07:00)
[2019-03-28] MEDS: LEVOTHYROXINE SOD 0.1 MG TAB FT SCH (07:00)
[2019-03-28 07:09] LABS: Magnesium 2.5 mg/dL (1.8-2.4)
[2019-03-28] MEDS: ACETYLCYST 20% 4 ML VIAL IH SCH ×2 (07:55→20:00)
[2019-03-28] MEDS: METOPROLOL TAR 50 MG TAB FT SCH ×2 (08:51→21:15)
[2019-03-28] MEDS: KCL 20 MEQ/100 mL IVPB 20 MEQ/100 ML BAG IV SCH ×2 (08:52→12:20)
[2019-03-28] MEDS: AMLODIPINE 5 MG TAB FT SCH ×2 (08:55→21:17)
[2019-03-28] MEDS: ISOSORBIDE DINIT 5 MG TAB FT SCH ×3 (08:56→21:15)
[2019-03-28] MEDS: CLOPIDOGREL 75 MG TABLET FT SCH (08:56)
[2019-03-28] MEDS: HEPARIN 5000 UNIT/ML 1 ML VIAL SQ SCH ×2 (08:56→21:16)
[2019-03-28] MEDS: ZINC OXIDE 20% OINTMENT 60gm TOP SCH ×2 (08:56→21:00)
[2019-03-28] MEDS: ASPIRIN 81 MG CHEWABLE TABLET FT SCH (08:56)
[2019-03-28] MEDS: INSULIN GLARGINE 100 UNITS/ML SQ SCH ×3 (09:00→21:17)
[2019-03-28] MEDS ORDERED: LOPERAMIDE HCL 1 MG/5 ML UCUP FT ONE (15:00)
--- NOTE | 2019-03-28 15:08 | PN ---
Date of Progress Note: 03/28/2019 Subjective: Patient was seen this morning for followup. No new complaints reported. Objective: General: Lying in bed, not in distress. Vital Signs: Reviewed. HEENT: Examination unremarkable. Lungs: Clear to auscultation. HEENT: Examination unremarkable. Lungs: Clear to auscultation. No rhonchi or rales heard. Heart: Sounds normal. Abdomen: Soft. Bowel sounds normal. No guarding, rigidity, tenderness, distention. Extremities: No leg edema. Intake, output records reviewed. Fingerstick blood sugar readings reviewed. Laboratory Data: Today's lab results reviewed. Impression: 1. Pneumonia. 2. Diarrhea, due to tube feeding. 3. Volume depletion. 4. Anemia. 5. Coronary artery disease. 6. Lci-CE-zctcrahag myocardial infarction. 7. Paroxysmal atrial fibrillation. 8. Hypertension. 9. Diabetes mellitus. Plan: The patient's blood sugar was running high, day before yesterday, so we had to increase the dose of Lantus insulin to 40 units twice a day; that actually helped to control his diabetes very well yesterday. All day yesterday , his blood sugar was in 130 to 170 range. As of last night, he started to have some hypoglycemia. So as of this morning, we will reduce the dose of his Lantus insulin to 20 units twice a day. He is tolerating tube feeding very well. We will use IV insulin drip if blood sugar goes higher than 200. We will continue to keep him in ICU right now. Continue current IV antibiotic, water through feeding tube, and will use Imodium p.r.n. for diarrhea. I did call and talk to the patient's daughter to give updates tomorrow. We will have speech therapy consultation and modified barium swallow. AUNG/MODL Voice ID: [id number] Report ID: [id number] LINDA
[2019-03-29] MEDS: cloNIDine HCl 0.1 MG TAB FT PRN ×2 (00:26→14:38)
[2019-03-29] MEDS: PIPER/TAZO/NS 2.25gm 2.25 GM/50 ML BAG IVPB SCH ×3 (01:43→17:43)
[2019-03-29] MEDS: IPRATROPIUM BROM 0.5MG/2.5ML NEB SCH ×4 (02:00→19:45)
[2019-03-29 05:10] LABS: Absolute Lymphocytes (CBC) 1.5 K/uL (0.7-4.9); Absolute Neutrophil 7.3 K/uL (1.8-8.0); Basophils % 0.4 % (0-1.3); Eosinophils % 5.7 % (0-4.4); Hematocrit 36.1 % (39.6-49.0); Lymphocytes % 14.6 % (15.3-44.8); MPV 10.9 fL (7.6-11.3); Monocytes % 9.3 % (3.3-12.3); RBC Red Blood Cell Count 3.95 M/uL (4.33-5.43)
[2019-03-29 05:27] LABS: Magnesium 2.6 mg/dL (1.8-2.4); Potassium 3.8 mmol/L (3.5-5.1)
[2019-03-29] MEDS ORDERED: POTASSIUM 25 MEQ EFFERV TAB PO ONE (05:55)
[2019-03-29] MEDS: LEVOTHYROXINE SOD 0.1 MG TAB FT SCH (06:18)
[2019-03-29] MEDS: LEVOTHYROXINE SOD 0.088 MG TAB FT SCH (06:18)
[2019-03-29] MEDS: ZINC OXIDE 20% OINTMENT 60gm TOP SCH ×2 (09:00→21:00)
[2019-03-29] MEDS: ACETYLCYST 20% 4 ML VIAL IH SCH ×2 (09:09→19:45)
[2019-03-29] MEDS: ASPIRIN 81 MG CHEWABLE TABLET FT SCH (09:11)
[2019-03-29] MEDS: METOPROLOL TAR 50 MG TAB FT SCH ×2 (09:11→22:17)
[2019-03-29] MEDS: AMLODIPINE 5 MG TAB FT SCH ×2 (09:11→22:17)
[2019-03-29] MEDS: CLOPIDOGREL 75 MG TABLET FT SCH (09:11)
[2019-03-29] MEDS: HEPARIN 5000 UNIT/ML 1 ML VIAL SQ SCH ×2 (09:12→22:18)
[2019-03-29] MEDS: ISOSORBIDE DINIT 5 MG TAB FT SCH ×3 (09:13→22:17)
[2019-03-29] MEDS: INSULIN GLARGINE 100 UNITS/ML SQ SCH ×2 (11:23→22:16)
--- NOTE | 2019-03-29 11:47 | RAD REPORT ---
EXAM DESCRIPTION: RAD - Barium Swallow Modified - 03/29/2019 11:31 am CLINICAL HISTORY: CVA, pneumonia, coughing and choking, difficulty swallowing COMPARISON: None. TECHNIQUE: The patient was given liquid, semi-solid and solid forms of barium. Lateral view fluorosc opic imaging was performed in conjunction with speech pathology service. FINDINGS: Cineloop acquisitions: 20 Fluoro time: 3 minutes 23 seconds Laryngeal penetration cleared with thin by straw and chin tuck plus cold bolus (added ice), Laryngeal penetration not cleared with thin by cup (pt. controlled), large sips back to back, with ne ctar and honey. Aspiration with cough with thin by cup, large sips, patient controlled Pharyngeal residue on vallecular and posterior wall that was mild to moderate, pyriform moderate to s evere with all consistencies and a 2' NG tube in place Delayed swallow, onset wiht honey (3 seconds), pudding (4 seconds), and dry susan cracker w/ barium pudding coating (10 second). Placement of NG tube is significantly limiting patients pharyngeal space, significantlly decreased ep iglottic inversion. chin tuck during swallow did help with the overall function of the swallow IMPRESSION: Modified barium swallow as described above and fully detailed on a separate speech patho logy report.
--- NOTE | 2019-03-30 00:07 | PN ---
Date of Progress Note: 03/29/2019 Subjective: The patient was seen this morning for followup. No new complaints, problems reported by the patient. He was sleeping, easily arousable. When he woke up, he was communicating very well. Denied any complaints. Objective: Vital Signs: Reviewed. HEENT: Unremarkable. Lungs: Clear to auscultation. Heart: Sounds normal. Abdomen: Soft. Bowel sounds normal. No guarding, rigidity, tenderness, distention. Extremities: No leg edema. Laboratory Data: White count 10.5, hemoglobin 11.8, platelets 200. Sodium 151, potassium 3.8, chlor eva 110, bicarb 36, BUN 40, creatinine 2.02, glucose 94. Impression: 1.Pneumonia. 2.Volume depletion. 3.Non-STEMI. 4.Coronary artery disease. 5.Hypertension. 6.Diabetes mellitus. 7.Paroxysmal atrial fibrillation. Plan: After I saw the patient, I did reduce his insulin dose from 20 units twice a day to 15 units t wice a day after reviewing fingerstick blood sugar readings for last 24 hours. The patient was evalu ated by speech therapist and modified barium swallow test was done today and the ICU nurse contacted me and gave me recommendation from speech therapist to remove Dobhoff feeding tube and start the godfrey ent on diet per speech therapist's recommendation and such orders were given to do so. I will see hi m tomorrow for followup. Hopefully, we will consider to transfer him out of ICU to room tomorrow depending on his condition. AUNG/MODL Voice ID: [id number] Report ID: [id number]
[2019-03-30] MEDS: PIPER/TAZO/NS 2.25gm 2.25 GM/50 ML BAG IVPB SCH ×3 (01:14→17:37)
[2019-03-30] MEDS: IPRATROPIUM BROM 0.5MG/2.5ML NEB SCH ×4 (01:25→20:00)
[2019-03-30 05:29] LABS: Absolute Lymphocytes (CBC) 1.2 K/uL (0.7-4.9); Absolute Monocytes 0.9 K/uL (0.1-1.3); Absolute Neutrophil 5.9 K/uL (1.8-8.0); Basophils % 0.4 % (0-1.3); Eosinophils % 6.3 % (0-4.4); Hematocrit 33.5 % (39.6-49.0); Lymphocytes % 14.4 % (15.3-44.8); Monocytes % 10.2 % (3.3-12.3); RBC Red Blood Cell Count 3.68 M/uL (4.33-5.43)
[2019-03-30 05:40] LABS: Magnesium 2.5 mg/dL (1.8-2.4); Potassium 3.8 mmol/L (3.5-5.1)
[2019-03-30] MEDS: LEVOTHYROXINE SOD 0.1 MG TAB FT SCH (06:13)
[2019-03-30] MEDS: LEVOTHYROXINE SOD 0.088 MG TAB FT SCH (06:13)
--- NOTE | 2019-03-30 06:33 | RAD REPORT ---
EXAM DESCRIPTION: RAD - Chest Single View - 03/30/2019 6:27 am CLINICAL HISTORY: Pneumonia COMPARISON: March 29, March 27 TECHNIQUE: AP portable chest image was obtained 0621 hours . FINDINGS: No change in positioning of the PICC line. Inspiratory effort is shallow. Lung markings are similar to comparison. No progressive lung parenchym al process. Heart and vasculature are normal. No measurable pleural effusion and no pneumothorax. No acute bony abnormality seen. No acute aortic findings suspected. IMPRESSION: Stable chest examination from prior day imaging.
[2019-03-30] MEDS: ACETYLCYST 20% 4 ML VIAL IH SCH ×2 (07:38→20:00)
[2019-03-30] MEDS: ZINC OXIDE 20% OINTMENT 60gm TOP SCH ×2 (09:00→20:35)
[2019-03-30] MEDS ORDERED: KCL 20 MEQ/100 mL IVPB 20 MEQ/100 ML BAG IV SCH (09:00)
[2019-03-30] MEDS: AMLODIPINE 5 MG TAB FT SCH ×2 (09:01→20:29)
[2019-03-30] MEDS: INSULIN GLARGINE 100 UNITS/ML SQ SCH ×2 (09:01→20:28)
[2019-03-30] MEDS: ASPIRIN 81 MG CHEWABLE TABLET FT SCH (09:01)
[2019-03-30] MEDS: CLOPIDOGREL 75 MG TABLET FT SCH (09:01)
[2019-03-30] MEDS: METOPROLOL TAR 50 MG TAB FT SCH ×2 (09:01→20:29)
[2019-03-30] MEDS: HEPARIN 5000 UNIT/ML 1 ML VIAL SQ SCH ×2 (09:01→20:28)
[2019-03-30] MEDS: ISOSORBIDE DINIT 5 MG TAB FT SCH ×3 (09:03→20:28)
--- NOTE | 2019-03-30 10:28 | RAD REPORT ---
EXAM DESCRIPTION: RAD - Chest Single View - 03/29/2019 11:51 pm CLINICAL HISTORY: 88 years Male, S/P PICC insertion COMPARISON: 03/24/2019. FINDINGS: There is mild cardiomegaly. The mediastinal structures are midline. A right-sided PICC line is identified with distal tip at the atrial caval junction. The lung finn a re clear of active infiltrates. The pulmonary vascularity is unremarkable. No active pleural disease is present. IMPRESSION: 1. Successful placement of right-sided PICC line. 2. Mild cardiomegaly. Electronically signed by: Kendrick Shultz MD 03/29/2019 11:55 PM CDT Due to temporary technical issues with the PACS/Fluency reporting system, reports are being signed by the in house radiologist as a courtesy to ensure prompt reporting. The interpreting radiologist is f ully responsible for the content of the report.
[2019-03-30] MEDS ORDERED: D50W 25 GM/50 ML SYRINGE IV PRN (20:01)
[2019-03-30] MEDS ORDERED: GLUCAGON 1 MG/VIAL IM PRN (20:01)
[2019-03-30] MEDS ORDERED: INSULIN -REGULAR HUMAN 50 UNIT/0.5 ML ML SQ SCH (21:00)
--- NOTE | 2019-03-31 00:04 | PN ---
Date of Progress Note: 03/30/2019 Subjective: The patient was seen this morning for followup. No new complaints, problems reported by him, lying in bed, not in distress. Awake, alert, recognizing me, answering questions, and tolerati ng diet well. Objective: Vital Signs: Reviewed. Fingerstick blood sugar readings reviewed. HEENT: Unremarkable. Lungs: Clear to auscultation. Heart: Sounds normal. Abdomen: Soft. Bowel sounds normal. No guarding, rigidity, tenderness, distention. Extremities: No leg edema. Laboratory Data: White count 8.5, hemoglobin 11.1, and platelet count 202. Sodium 144, potassium 3. 8, chloride 105, bicarb 34, BUN 36, creatinine 2, glucose 152. Impression: 1.Pneumonia. 2.Non-STEMI. 3.Paroxysmal atrial fibrillation. 4.Hypertension. 5.Diabetes mellitus. 6.Chronic kidney disease, stage 4. Plan: We will go ahead and continue current medications. The patient is tolerating diet very well. We will have Physical Therapy continue to work with him. He has not required any IV insulin over la st 48 hours. We will continue his Lantus insulin per order and if his condition remains stable today, we will consider to transfer him to medical floor later today. Coco wilde were discussed with the patient. AUNG/MODL Voice ID: [id number] Report ID: [id number]
[2019-03-31] MEDS: PIPER/TAZO/NS 2.25gm 2.25 GM/50 ML BAG IVPB SCH ×3 (01:57→17:09)
[2019-03-31] MEDS: IPRATROPIUM BROM 0.5MG/2.5ML NEB SCH ×5 (02:00→20:35)
[2019-03-31 04:58] LABS: Potassium 3.7 mmol/L (3.5-5.1)
[2019-03-31] MEDS: LEVOTHYROXINE SOD 0.1 MG TAB FT SCH (05:32)
[2019-03-31] MEDS: LEVOTHYROXINE SOD 0.088 MG TAB FT SCH (05:32)
[2019-03-31] MEDS: D50W 25 GM/50 ML SYRINGE IV PRN (07:16)
[2019-03-31] MEDS ORDERED: KCL 20 MEQ/100 mL IVPB 20 MEQ/100 ML BAG IV SCH (08:00)
[2019-03-31] MEDS: ZINC OXIDE 20% OINTMENT 60gm TOP SCH ×3 (09:00→21:00)
[2019-03-31] MEDS: ASPIRIN 81 MG CHEWABLE TABLET FT SCH (09:28)
[2019-03-31] MEDS: AMLODIPINE 5 MG TAB FT SCH ×2 (09:30→21:10)
[2019-03-31] MEDS: CLOPIDOGREL 75 MG TABLET FT SCH (09:30)
[2019-03-31] MEDS: METOPROLOL TAR 50 MG TAB FT SCH ×2 (09:30→21:11)
[2019-03-31] MEDS: ISOSORBIDE DINIT 5 MG TAB FT SCH ×3 (09:32→21:26)
[2019-03-31] MEDS: INSULIN GLARGINE 100 UNITS/ML SQ SCH ×2 (09:33→21:00)
[2019-03-31] MEDS: HEPARIN 5000 UNIT/ML 1 ML VIAL SQ SCH ×2 (09:33→21:10)
[2019-03-31] MEDS: GLUCERNA SHAKE 237 ML CAN PO SCH (21:00)
--- NOTE | 2019-04-01 00:15 | PN ---
Date of Progress Note: 03/31/2019 Subjective: The patient was seen this morning for followup. No new complaints or problems reported by nursing staff. The patient was sleeping and woke up with his eyes open, but did not communicate q uite as well like yesterday. The patient's blood sugar this morning was 61, that was noted on the bl ood work this morning that was done and no treatment for hypoglycemia was provided by nursing staff. So, as soon as I saw him, I informed nurse to go ahead and give 1 amp of D50 IV right away. Objective: Vital Signs: Reviewed. HEENT: Unremarkable. Lungs: Clear to auscultation. Heart: Normal. Abdomen: Soft. Bowel sounds normal. No guarding, rigidity, tenderness, distention. Extremities: No leg edema. Laboratory Data: Sodium 145, potassium 3.7, chloride 106, bicarb 33, BUN 35, creatinine 2.27, glucos e 61. Impression: 1.Pneumonia. 2.Non-ST elevation myocardial infarction. 3.Generalized weakness. 4.Debility. 5.Coronary artery disease. 6.Hypertension. 7.Diabetes mellitus. 8.Chronic kidney disease stage 4. Plan: We will go ahead and continue Lantus insulin 15 units twice a day. We will monitor fingerstic k blood sugar before each meal and at bedtime, but do not give any sliding scale coverage and nursing staff to contact me if sugar is higher than 300 or less than 80 and if sugar is less than 80, then t o give 1 amp of D50 and if it is less than 100, then to give orange juice for treatment of hypoglycem ia. All such orders were written this morning. Physical therapy to continue to work with the patient. Rehab consultation was placed. I will see him tomorrow for followup. AUNG/MODL Voice ID: [id number] Report ID: [id number]
[2019-04-01] MEDS: PIPER/TAZO/NS 2.25gm 2.25 GM/50 ML BAG IVPB SCH ×3 (01:03→16:13)
[2019-04-01] MEDS: IPRATROPIUM BROM 0.5MG/2.5ML NEB SCH ×4 (02:30→19:32)
[2019-04-01 04:50] LABS: Absolute Lymphocytes (CBC) 1.8 K/uL (0.7-4.9); Absolute Monocytes 1.1 K/uL (0.1-1.3); Absolute Neutrophil 4.2 K/uL (1.8-8.0); Basophils % 0.9 % (0-1.3); Eosinophils % 5.4 % (0-4.4); Hematocrit 32.7 % (39.6-49.0); Lymphocytes % 23.3 % (15.3-44.8); MPV 10.7 fL (7.6-11.3); Monocytes % 14.5 % (3.3-12.3); RBC Red Blood Cell Count 3.58 M/uL (4.33-5.43)
[2019-04-01 05:06] LABS: Magnesium 2.4 mg/dL (1.8-2.4); Potassium 3.9 mmol/L (3.5-5.1)
[2019-04-01] MEDS ORDERED: KCL 20 MEQ/100 mL IVPB 20 MEQ/100 ML BAG IV SCH (06:00)
[2019-04-01] MEDS: LEVOTHYROXINE SOD 0.1 MG TAB FT SCH (06:06)
[2019-04-01] MEDS: LEVOTHYROXINE SOD 0.088 MG TAB FT SCH (06:07)
[2019-04-01] MEDS: ASPIRIN 81 MG CHEWABLE TABLET FT SCH (08:57)
[2019-04-01] MEDS: GLUCERNA SHAKE 237 ML CAN PO SCH ×2 (08:57→21:48)
[2019-04-01] MEDS: AMLODIPINE 5 MG TAB FT SCH ×2 (08:57→21:44)
[2019-04-01] MEDS: METOPROLOL TAR 50 MG TAB FT SCH ×2 (08:57→21:44)
[2019-04-01] MEDS: CLOPIDOGREL 75 MG TABLET FT SCH (08:57)
[2019-04-01] MEDS: HEPARIN 5000 UNIT/ML 1 ML VIAL SQ SCH ×2 (08:58→21:43)
[2019-04-01] MEDS: INSULIN GLARGINE 100 UNITS/ML SQ SCH ×2 (08:58→21:00)
[2019-04-01] MEDS: ZINC OXIDE 20% OINTMENT 60gm TOP SCH ×2 (08:59→21:48)
[2019-04-01] MEDS: ISOSORBIDE DINIT 5 MG TAB FT SCH ×3 (09:38→21:47)
--- NOTE | 2019-04-01 11:46 | PN ---
Date of Progress Note: 04/01/2019 Subjective: The patient was seen this morning for followup. No new complaints or problems reported by him. He is awake, alert, communicating, answering questions well. Ambulated with therapy yesterd ay as he reported. Objective: Vital Signs: Reviewed. HEENT: Unremarkable. Lungs: Clear to auscultation. Heart: Sounds normal. Abdomen: Soft. Bowel sounds normal. No guarding, rigidity, tenderness, or distention. Extremities: No leg edema. Laboratory Data: Reviewed. Fingerstick blood sugar readings reviewed. Impression: 1.Diabetes mellitus, uncontrolled. 2.Non-ST elevation myocardial infarction. 3.Coronary artery disease. 4.Paroxysmal atrial fibrillation. 5.Hypertension. 6.Pneumonia. 7.Generalized weakness. 8.Debility. 9.Chronic kidney disease stage 4. Plan: We will continue current medications. Continue current insulin injection with monitoring of f ingerstick blood sugar without any sliding scale coverage and we will make appropriate adjustment on insulin dose according to his blood sugar. Rehab consult is pending and we will continue current antibiotics. Plan of treatment discussed with the patient. AUNG/MODL Voice ID: [id number] Report ID: [id number]
[2019-04-02] MEDS: PIPER/TAZO/NS 2.25gm 2.25 GM/50 ML BAG IVPB SCH ×3 (00:25→17:07)
[2019-04-02] MEDS: IPRATROPIUM BROM 0.5MG/2.5ML NEB SCH ×4 (01:40→20:00)
[2019-04-02 04:55] LABS: Potassium 3.9 mmol/L (3.5-5.1)
[2019-04-02] MEDS ORDERED: POTASSIUM CL SA 10 MEQ TAB PO ONE (05:57)
[2019-04-02] MEDS: LEVOTHYROXINE SOD 0.088 MG TAB FT SCH (06:47)
[2019-04-02] MEDS: LEVOTHYROXINE SOD 0.1 MG TAB FT SCH (06:47)
[2019-04-02] MEDS: D50W 25 GM/50 ML SYRINGE IV PRN ×2 (07:56→08:09)
[2019-04-02] MEDS: AMLODIPINE 5 MG TAB FT SCH ×2 (09:14→21:44)
[2019-04-02] MEDS: METOPROLOL TAR 50 MG TAB FT SCH ×2 (09:18→21:43)
[2019-04-02] MEDS: ISOSORBIDE DINIT 5 MG TAB FT SCH ×3 (09:19→21:43)
[2019-04-02] MEDS: CLOPIDOGREL 75 MG TABLET FT SCH (09:19)
[2019-04-02] MEDS: ASPIRIN 81 MG CHEWABLE TABLET FT SCH (09:19)
[2019-04-02] MEDS: HEPARIN 5000 UNIT/ML 1 ML VIAL SQ SCH ×2 (09:19→21:43)
[2019-04-02] MEDS: ZINC OXIDE 20% OINTMENT 60gm TOP SCH ×2 (09:20→21:42)
[2019-04-02] MEDS: INSULIN GLARGINE 100 UNITS/ML SQ SCH ×2 (09:20→21:43)
[2019-04-02] MEDS: GLUCERNA SHAKE 237 ML CAN PO SCH ×2 (09:21→21:44)
--- NOTE | 2019-04-02 22:11 | PN ---
Date of Progress Note: 04/02/2019 Subjective: The patient was sent this morning for followup. No new complaints or problems reported by him. He was lying in bed, sleeping, arousable, not in distress. Denied any complaints. Recogniz ed me and talk to me, but went right back to sleep. Objective: HEENT: Unremarkable. Lungs: Clear to auscultation. Heart: Sounds normal. Abdomen: Soft. Bowel sounds normoactive. No guarding, rigidity, tenderness, or distention. Extremities: No leg edema. Laboratory Data: Sodium 142, potassium 3.9, chloride 107, bicarb 29, BUN 26, creatinine 2.30, glucos e 78. Subsequently, his fingerstick blood sugar was 46 this morning. Impression: 1.Pneumonia. 2.Hypoglycemia. 3.Diabetes mellitus. 4.Hypertension. 5.Coronary artery disease. 6.Generalized weakness. 7.Debility. Plan: We will go ahead and continue to monitor fingerstick blood sugar. The patient has brittle francheska betes and his blood sugar fluctuates from hypoglycemia to more than 400-500 range. We will go ahead and continue to monitor blood sugar closely. We will monitor fingerstick blood sugar, but no sliding scale will be provided at least at this time. Continue Lantus insulin per order. I will see him to nabil for followup. The patient's insurance has denied inpatient rehab benefit for him, so now we will have to look into care home facility benefit fo r him. AUNG/MODL Voice ID: [id number] Report ID: [id number]
[2019-04-03] MEDS: PIPER/TAZO/NS 2.25gm 2.25 GM/50 ML BAG IVPB SCH ×3 (01:47→17:04)
[2019-04-03] MEDS: IPRATROPIUM BROM 0.5MG/2.5ML NEB SCH ×4 (02:00→20:00)
[2019-04-03] MEDS: LEVOTHYROXINE SOD 0.1 MG TAB FT SCH (05:34)
[2019-04-03] MEDS: LEVOTHYROXINE SOD 0.088 MG TAB FT SCH (05:34)
[2019-04-03 05:56] LABS: Potassium 4.4 mmol/L (3.5-5.1)
[2019-04-03] MEDS: D50W 25 GM/50 ML SYRINGE IV PRN (07:29)
[2019-04-03] MEDS: INSULIN GLARGINE 100 UNITS/ML SQ SCH ×2 (09:04→21:00)
[2019-04-03] MEDS: ASPIRIN 81 MG CHEWABLE TABLET FT SCH (09:05)
[2019-04-03] MEDS: CLOPIDOGREL 75 MG TABLET FT SCH (09:05)
[2019-04-03] MEDS: HEPARIN 5000 UNIT/ML 1 ML VIAL SQ SCH ×2 (09:05→22:13)
[2019-04-03] MEDS: ISOSORBIDE DINIT 5 MG TAB FT SCH ×3 (09:05→22:13)
[2019-04-03] MEDS: AMLODIPINE 5 MG TAB FT SCH ×2 (09:05→22:14)
[2019-04-03] MEDS: METOPROLOL TAR 50 MG TAB FT SCH ×2 (09:05→22:14)
[2019-04-03] MEDS: GLUCERNA SHAKE 237 ML CAN PO SCH ×2 (09:06→22:13)
[2019-04-03] MEDS: ZINC OXIDE 20% OINTMENT 60gm TOP SCH ×2 (09:12→22:15)
--- NOTE | 2019-04-03 14:33 | PN ---
Date of Progress Note: 04/03/2019 Subjective: The patient was seen this morning for followup. No new complaints or problems reported by the patient. He was lying in bed, not in distress, ambulated well yesterday. Had a bowel movemen t yesterday. Objective: HEENT: Unremarkable. Lungs: Clear to auscultation. Heart: Sounds normal. Abdomen: Soft. Bowel sounds normal. No guarding, rigidity, tenderness, or distention. Extremities: No leg edema. Laboratory Data: Sodium 142, potassium 4.4, chloride 108, bicarb 27, BUN 23, creatinine 2.12, glucos e was 50, and after it was corrected with treatment, it came up to 123 on the last fingerstick blood sugar check. Impression: 1.Diabetes mellitus, uncontrolled, brittle. 2.Chronic kidney disease, stage 4. 3.Coronary artery disease. 4.Hypertension. 5.Pneumonia. Plan: We will go ahead and continue current medications. Continue current antibiotics. We will con tinue current Lantus insulin. The patient is not getting any sliding scale coverage, and starting to night we will have the patient start eating bedtime snack per order. I was told that the patient's [employer] has refused to pay for any inpatient rehab benefit, so we will have to have Social Service assist the patient with skilled n ursing facility placement. AUNG/MODL Voice ID: [id number] Report ID: [id number]
[2019-04-03] MEDS: INSULIN GLARGINE 100 UNITS/ML SQ ONE (22:14)
[2019-04-04] MEDS: PIPER/TAZO/NS 2.25gm 2.25 GM/50 ML BAG IVPB SCH ×3 (00:54→16:30)
[2019-04-04] MEDS: IPRATROPIUM BROM 0.5MG/2.5ML NEB SCH ×4 (02:00→20:00)
[2019-04-04] MEDS: INSULIN GLARGINE 100 UNITS/ML SQ ONE (03:08)
[2019-04-04] MEDS: LEVOTHYROXINE SOD 0.1 MG TAB FT SCH (05:49)
[2019-04-04] MEDS: LEVOTHYROXINE SOD 0.088 MG TAB FT SCH (05:49)
[2019-04-04] MEDS: AMLODIPINE 5 MG TAB FT SCH ×2 (09:52→22:29)
[2019-04-04] MEDS: ISOSORBIDE DINIT 5 MG TAB FT SCH ×3 (09:52→22:29)
[2019-04-04] MEDS: ASPIRIN 81 MG CHEWABLE TABLET FT SCH (09:53)
[2019-04-04] MEDS: CLOPIDOGREL 75 MG TABLET FT SCH (09:53)
[2019-04-04] MEDS: METOPROLOL TAR 50 MG TAB FT SCH ×2 (09:53→22:28)
[2019-04-04] MEDS: INSULIN GLARGINE 100 UNITS/ML SQ SCH ×2 (09:54→22:30)
[2019-04-04] MEDS: GLUCERNA SHAKE 237 ML CAN PO SCH ×2 (09:55→22:30)
[2019-04-04] MEDS: ZINC OXIDE 20% OINTMENT 60gm TOP SCH ×2 (09:57→22:30)
[2019-04-04] MEDS: HEPARIN 5000 UNIT/ML 1 ML VIAL SQ SCH ×2 (09:57→22:31)
[2019-04-04] MEDS ORDERED: GLUCAGON 1 MG/VIAL IM PRN (16:54)
[2019-04-04] MEDS ORDERED: D50W 25 GM/50 ML SYRINGE IV PRN (16:54)
--- NOTE | 2019-04-04 17:46 | PN ---
Date of Progress Note: 04/04/2019 Subjective: The patient was seen this morning for followup. No new complaints or problems reported by patient. He was lying in bed, sleepy, not in any distress, wakes up, but falls back to sleep when I saw him. Objective: Vital Signs: Reviewed. HEENT: Unremarkable. Lungs: Clear to auscultation. Heart: Sounds normal. Abdomen: Soft. Bowel sounds normal. No guarding, rigidity, tenderness, or distention. Extremities: No leg edema. Laboratory Data: Fingerstick blood sugar readings reviewed and I was concerned about hypoglycemia wh en I saw him, but his blood sugar was in range of 300 as it was checked as soon as soon after I saw h im. The patient has not had any hypoglycemia problem in last 24 hours. Impression: 1.Non ST-elevation myocardial infarction. 2.Coronary artery disease. 3.Pneumonia. 4.Diabetes mellitus, uncontrolled, brittle. 5.Hypertension. 6.Coronary artery disease. Plan: We will continue current medications. We are monitoring fingerstick blood sugar, but not gett ing any sliding scale at this point. 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 Social Service consultation requested to assist the patient and family with care home facility placement. AUNG/MODL Voice ID: [id number] Report ID: [id number]
[2019-04-04] MEDS ORDERED: INSULIN -REGULAR HUMAN 50 UNIT/0.5 ML ML SQ ONE ×2 (21:24→22:16)
[2019-04-05] MEDS: PIPER/TAZO/NS 2.25gm 2.25 GM/50 ML BAG IVPB SCH (01:22)
[2019-04-05] MEDS: IPRATROPIUM BROM 0.5MG/2.5ML NEB SCH ×4 (02:00→20:00)
[2019-04-05] MEDS: LEVOTHYROXINE SOD 0.088 MG TAB FT SCH (06:16)
[2019-04-05] MEDS: LEVOTHYROXINE SOD 0.1 MG TAB FT SCH (06:17)
[2019-04-05 06:47] LABS: Absolute Lymphocytes (CBC) 4.6 K/uL (0.7-4.9); Absolute Monocytes 1.6 K/uL (0.1-1.3); Absolute Neutrophil 6.3 K/uL (1.8-8.0); Basophils % 0.9 % (0-1.3); Eosinophils % 3.6 % (0-4.4); Hematocrit 33.2 % (39.6-49.0); Lymphocytes % 35.3 % (15.3-44.8); MPV 10.8 fL (7.6-11.3); RBC Red Blood Cell Count 3.66 M/uL (4.33-5.43)
[2019-04-05 06:59] LABS: Magnesium 2.3 mg/dL (1.8-2.4); Potassium 4.4 mmol/L (3.5-5.1)
[2019-04-05] MEDS ORDERED: BUMETANIDE 1 MG TABLET PO SCH (09:00)
[2019-04-05] MEDS: FLUTICASONE 50MCG NASAL SPRAY NAS SCH (09:50)
[2019-04-05] MEDS: INSULIN GLARGINE 100 UNITS/ML SQ SCH ×3 (09:51→21:00)
[2019-04-05] MEDS: GABAPENTIN 100 MG CAP PO SCH ×3 (09:52→20:52)
[2019-04-05] MEDS: ASPIRIN EC 81 MG TAB PO SCH (09:52)
[2019-04-05] MEDS: METOPROLOL TAR 50 MG TAB FT SCH ×2 (09:52→20:53)
[2019-04-05] MEDS: ISOSORBIDE MONO SR 60 MG TAB PO SCH (09:53)
[2019-04-05] MEDS: FOLIC ACID 1 MG TABLET PO SCH (09:53)
[2019-04-05] MEDS: AMLODIPINE 5 MG TAB FT SCH ×2 (09:53→20:54)
[2019-04-05] MEDS: MULTIVITAMIN TAB PO SCH (09:53)
[2019-04-05] MEDS: CLOPIDOGREL 75 MG TABLET PO SCH (09:53)
[2019-04-05] MEDS: TAMSULOSIN 0.4 MG SR CAP PO SCH (09:53)
[2019-04-05] MEDS: ZINC OXIDE 20% OINTMENT 60gm TOP SCH ×2 (09:54→20:56)
[2019-04-05] MEDS: GLUCERNA SHAKE 237 ML CAN PO SCH ×2 (09:54→21:00)
[2019-04-05] MEDS: HEPARIN 5000 UNIT/ML 1 ML VIAL SQ SCH ×2 (09:55→20:51)
[2019-04-05 11:41] LABS: Urine Appearance CLEAR; Urine Bilirubin NEGATIVE (NEG); Urine Blood NEGATIVE (NEG); Urine Color YELLOW; Urine Glucose NEGATIVE (NEG); Urine Protein 1+ (NEG); Urine Urobilinogen 0.2 mg/dL (0.2-1.0); Urine pH 6.5 (5.0-7.0)
[2019-04-05 11:55] LABS: Urine Bacteria <20 /HPF (NONE SEEN); Urine Culture Reflex Order NOT NEEDED; Urine Mucus 1+ /HPF (NONE SEEN); Urine RBC <5 /HPF (NONE SEEN)
[2019-04-05] MEDS ORDERED: D50W 25 GM/50 ML SYRINGE IV PRN ×2 (16:31→22:27)
[2019-04-05] MEDS ORDERED: GLUCAGON 1 MG/VIAL IM PRN ×2 (16:31→22:27)
[2019-04-05] MEDS ORDERED: INSULIN -REGULAR HUMAN 50 UNIT/0.5 ML ML SQ ONE ×4 (16:32→22:13)
[2019-04-05] MEDS: ATORVASTATIN 40 MG TAB PO SCH (20:54)
[2019-04-05] MEDS ORDERED: INSULIN GLARGINE 100 UNITS/ML SQ ONE (23:00)
--- NOTE | 2019-04-05 23:59 | PN ---
Date of Progress Note: 04/05/2019 Subjective: The patient was seen this morning for followup. He was lying in bed, not in any distres s. No new complaints or problems reported by him. Sleeping. Arousable. Objective: Vital Signs: Reviewed. HEENT: Unremarkable. Lungs: Clear to auscultation. Heart: Normal. Abdomen: Soft. Bowel sounds normal. No guarding, rigidity, tenderness, or distention. Extremities: Trace leg edema. Laboratory Data: White count 13.2, hemoglobin 11, platelets 352. Sodium 142, potassium 4.4, chlorid e 109, bicarb 26, BUN 22, creatinine 2.15, glucose 43. Impression: 1.Hypoglycemia. 2.Diabetes mellitus, type 2, uncontrolled, brittle. 3.Coronary artery disease. 4.Chronic kidney disease stage 4. 5.Hypertension. 6.Debility. 7.Generalized weakness. Plan: We will go ahead and continue current medications including Lantus insulin. The patient's fin gerstick blood sugar readings reviewed. He did eat his breakfast, but he also received sliding scale insulin last night, 7 or 8 units of regular insulin at bedtime, which was ordered by on-call physici an for elevated blood sugar. We will continue Lantus insulin per order. I will see him tomorrow for followup. power lineworker to make arrangements for patient to go to jail facility and we w ill go ahead and discontinue antibiotic. The patient pulled out his PICC line over the weekend, so a t this point, he does not have any IV access. This is second PICC line that he pulled out. There is no reason for us to place another PICC line at this point. As soon as criminal justice social worker is able to make arrangements, the patient to go to jail facility. AUNG/MODL Voice ID: [id number] Report ID: [id number]
[2019-04-06] MEDS: IPRATROPIUM BROM 0.5MG/2.5ML NEB SCH ×4 (02:00→19:35)
[2019-04-06] MEDS: LEVOTHYROXINE SOD 0.1 MG TAB PO SCH (05:26)
[2019-04-06] MEDS: LEVOTHYROXINE SOD 0.088 MG TAB PO SCH (05:26)
[2019-04-06 06:58] LABS: Absolute Lymphocytes (CBC) 1.4 K/uL (0.7-4.9); Absolute Monocytes 1.3 K/uL (0.1-1.3); Absolute Neutrophil 9.9 K/uL (1.8-8.0); Basophils % 0.4 % (0-1.3); Eosinophils % 1.3 % (0-4.4); Hematocrit 31.5 % (39.6-49.0); Lymphocytes % 11.2 % (15.3-44.8); MPV 10.5 fL (7.6-11.3); Monocytes % 10.1 % (3.3-12.3)
[2019-04-06 06:59] LABS: Magnesium 2.2 mg/dL (1.8-2.4); Phosphorus 3.3 mg/dL (2.5-4.9)
--- NOTE | 2019-04-06 08:42 | RAD REPORT ---
EXAM DESCRIPTION: RAD - Chest Single View - 04/06/2019 8:31 am CLINICAL HISTORY: Pneumonia COMPARISON: March 30 TECHNIQUE: AP portable chest image was obtained 0827 hours . FINDINGS: Right lung field remains clear. No focal consolidation or mass of the left lung field. No acute failure or volume overload. Heart and vasculature are normal. No measurable pleural effusion and no pneumothorax. No acute bony abnormality seen. No acute aortic finding. PICC line has been removed since prior imaging. IMPRESSION: No focal consolidation or mass. No failure or volume overload findings seen. Baseline interstitial pattern is mildly prominent but not significantly different from comparison.
[2019-04-06] MEDS: INSULIN GLARGINE 100 UNITS/ML SQ SCH ×2 (09:00→12:13)
[2019-04-06] MEDS: HEPARIN 5000 UNIT/ML 1 ML VIAL SQ SCH ×2 (09:09→20:04)
[2019-04-06] MEDS: AMLODIPINE 5 MG TAB FT SCH ×2 (09:12→20:04)
[2019-04-06] MEDS: FOLIC ACID 1 MG TABLET PO SCH (09:12)
[2019-04-06] MEDS: ASPIRIN EC 81 MG TAB PO SCH (09:12)
[2019-04-06] MEDS: GABAPENTIN 100 MG CAP PO SCH ×3 (09:12→20:04)
[2019-04-06] MEDS: CLOPIDOGREL 75 MG TABLET PO SCH (09:12)
[2019-04-06] MEDS: GLUCERNA SHAKE 237 ML CAN PO SCH ×2 (09:13→20:13)
[2019-04-06] MEDS: TAMSULOSIN 0.4 MG SR CAP PO SCH (09:13)
[2019-04-06] MEDS: MULTIVITAMIN TAB PO SCH (09:13)
[2019-04-06] MEDS: FLUTICASONE 50MCG NASAL SPRAY NAS SCH (09:13)
[2019-04-06] MEDS: METOPROLOL TAR 50 MG TAB FT SCH ×2 (09:13→20:03)
[2019-04-06] MEDS: ZINC OXIDE 20% OINTMENT 60gm TOP SCH ×2 (09:15→20:10)
[2019-04-06] MEDS: ISOSORBIDE MONO SR 60 MG TAB PO SCH (09:23)
[2019-04-06] MEDS ORDERED: INSULIN -REGULAR HUMAN 50 UNIT/0.5 ML ML SQ ONE (17:15)
[2019-04-06] MEDS: ATORVASTATIN 40 MG TAB PO SCH (20:03)
[2019-04-06] MEDS ORDERED: INSULIN GLARGINE 100 UNITS/ML SQ ONE (21:00)
--- NOTE | 2019-04-06 22:11 | PN ---
Date of Progress Note: 04/06/2019 Subjective: The patient was seen this morning for followup. No new complaints or problems reported by him. He was sleeping, arousable, woke up with his eyes open, but then fell right back to sleep. His blood sugar was low this morning, was 35. So, nurse was trying to give him his orange juice and we encouraged him to finish that 1 glass of orange juice, which he did. He did not receive any regul ar insulin last night or yesterday all day. He got his Lantus insulin 20 units twice a day dosing ye morning and yesterday evening. He did not eat any bedtime snack yesterday. Objective: Vital Signs: Reviewed. HEENT: Unremarkable. Lungs: Clear to auscultation. Heart: Sounds normal. Abdomen: Soft. Bowel sounds normal. No guarding, rigidity, tenderness, or distention. Extremities: No leg edema. Laboratory Data: White count 12.9, hemoglobin 10.2, platelets 312. Sodium 141, potassium 4, chlorid e 108, bicarb 26, BUN 23, creatinine 2.04, glucose 35, magnesium 2.2. His urinalysis was normal yest erday. Chest x-ray was done today, does not show any sign of any infiltrate. Impression: 1.Hypoglycemia. 2.Leukocytosis, reactive. 3.Chronic kidney disease, stage 4. 4.Coronary artery disease. 5.Generalized weakness. 6.Debility. 7.Hypertension. 8.Diabetes mellitus, type 2, brittle. Plan: This morning, the patient had hypoglycemia and it was treated with initially glass of orange j uice and he did not respond to a couple of glasses of orange juice this morning, which was given, so he was also given 1 dose of glucagon and subsequently, his blood sugar came up to 200 range. He ate breakfast subsequently and 20 units of Lantus insulin was given later this morning. His blood sugar readings throughout the day reviewed. This evening before supper, his blood sugar was in range of 30 0, so 2 units of regular insulin subcu x1 dose was ordered to be given at supper time. 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 Depending on his condition, we will see if he is stable for discharge to go to pen[facility] tomorrow or not. AUNG/MODL Voice ID: [id number] Report ID: [id number]
[2019-04-07] MEDS: IPRATROPIUM BROM 0.5MG/2.5ML NEB SCH ×3 (01:50→13:26)
[2019-04-07] MEDS: LEVOTHYROXINE SOD 0.088 MG TAB PO SCH (06:10)
[2019-04-07] MEDS: LEVOTHYROXINE SOD 0.1 MG TAB PO SCH (06:10)
[2019-04-07 06:12] VITALS: BMI 29.0
[2019-04-07] MEDS: TAMSULOSIN 0.4 MG SR CAP PO SCH (08:31)
[2019-04-07] MEDS: ASPIRIN EC 81 MG TAB PO SCH (08:31)
[2019-04-07] MEDS: AMLODIPINE 5 MG TAB FT SCH (08:31)
[2019-04-07] MEDS: GABAPENTIN 100 MG CAP PO SCH ×2 (08:31→14:04)
[2019-04-07] MEDS: METOPROLOL TAR 50 MG TAB FT SCH (08:31)
[2019-04-07] MEDS: ISOSORBIDE MONO SR 60 MG TAB PO SCH (08:31)
[2019-04-07] MEDS: HEPARIN 5000 UNIT/ML 1 ML VIAL SQ SCH (08:32)
[2019-04-07] MEDS: MULTIVITAMIN TAB PO SCH (08:32)
[2019-04-07] MEDS: FOLIC ACID 1 MG TABLET PO SCH (08:32)
[2019-04-07] MEDS: CLOPIDOGREL 75 MG TABLET PO SCH (08:33)
[2019-04-07] MEDS: FLUTICASONE 50MCG NASAL SPRAY NAS SCH (08:33)
[2019-04-07] MEDS: GLUCERNA SHAKE 237 ML CAN PO SCH (08:33)
[2019-04-07] MEDS: ZINC OXIDE 20% OINTMENT 60gm TOP SCH (08:33)
[2019-04-07] MEDS ORDERED: INSULIN GLARGINE 100 UNITS/ML SQ SCH (09:00)
[2019-04-07 09:30] VITALS: O2SAT 92
[2019-04-07] MEDS ORDERED: GLUCAGON 1 MG/VIAL IM PRN (12:14)
[2019-04-07] MEDS ORDERED: D50W 25 GM/50 ML SYRINGE IV PRN (12:14)
[2019-04-07] MEDS ORDERED: INSULIN -REGULAR HUMAN 50 UNIT/0.5 ML ML SQ ONE ×2 (12:14→17:15)
[2019-04-07 14:27] VITALS: BP 141/63; TEMP 98.5
--- NOTE | 2019-04-08 18:17 | DS ---
Date of Discharge: 04/07/2019 Disposition: Discharged to go to prison facility. Physical Examination: HEENT: Unremarkable. Lungs: Clear to auscultation. Heart: Sounds normal. Abdomen: Soft. Bowel sounds normal. No guarding, rigidity, tenderness, or distention. Extremities: No leg edema. Laboratory Data: Labs done during this hospitalization. Last white count yesterday 12.9, hemoglobin 10.2, platelets 316. Last sodium yesterday 141, potassium 4, chloride 108, bicarb 26, BUN 23, creat inine 2.04, glucose 35. Yesterday, magnesium 2.2. His initial chemistry when he was admitted on ; sodium 126, potassium 5.4, chloride 85, bicarb 9, BUN 71, creatinine 3.70, glucose 1260. Hi s troponin level upon admission was 5.58. His fingerstick blood sugar readings reviewed in last 24 h ours and has been in the range of 200-300, which is more stable in last 24 hours than before. Discharge Medications And Instructions: 1.Tamsulosin 0.4 mg p.o. daily. 2.Simvastatin 80 mg p.o. daily. 3.Multivitamin daily. 4.Metoprolol 50 mg p.o. twice a day. 5.Levothyroxine 200 mcg and 88 mcg p.o. daily. 6.Isosorbide mononitrate 60 mg p.o. daily. 7.Gabapentin 100 mg 3 times a day. 8.Folic acid 1 mg daily. 9.Fluticasone nasal spray 1 spray daily. 10.Clopidogrel 75 mg p.o. daily. 11.Aspirin 81 mg p.o. daily. 12.Fall precautions. 13.Consult Physical Therapy and Occupational Therapy at detention. 14.Diet, 2000 calorie ADA 2 g sodium. 15.Give Lantus insulin 30 units subcutaneous injection daily in the morning with breakfast. 16.Check fingerstick blood sugar a.c. and at bedtime and if sugar is high than 300, then give 2 unit s of regular insulin subcutaneous. 17.Do not give any regular insulin at bedtime. 18.This patient has brittle diabetes and his sugar tends to drop very low manager shipping hours and it is recommended to check fingerstick blood sugar between 3-4 a.m. for a while to establish stability. Hospital Course: An 88-year-old pleasant male patient, who was admitted to the hospital with fall an d unconsciousness. Please see dictated H and P for more information. The patient was brought into e mergency room from home with above-mentioned problem. Further evaluation revealed that he was in francheska betic ketoacidosis with possibility of pneumonia and non-STEMI. He was admitted to intensive care un it. IV fluid was given. IV insulin drip was started. Cardiology consultation was obtained. The elena galeano was started on empiric antibiotics using Zosyn. His overall condition improved. Renal functio n improved. His diabetic ketoacidosis problem resolved and subsequently, we were able to discontinue his insulin drip. He was kept in ICU for several days. Once his condition was stable, he was trans ferred out of ICU to regular room. We continued to monitor his fingerstick blood sugar very regularl y and very closely monitoring was done. I have known this patient for 20-25 years and he unfortunate ly has brittle diabetes with very significant fluctuation in his blood sugar. We started him on init ially long-acting insulin Lantus at bedtime and slowly increased that dose and then we started adding morning dose of Lantus insulin also, but with recent drop in manager shipping blood sugar readings and his unpredictable oral intake of food in last 24 hours, I have discontinued his nighttime Lantus insu leslie and as of this morning, I have increased his morning dose of Lantus insulin from 20 units to 30 u nits daily in the morning. We will monitor his fingerstick blood sugar readings as per order and giv e a very small amount of insulin at meal time, but not to give any insulin at bedtime as during his [facility] hospital admission, we did determine that using any bedtime insulin was resulting in significant risk of hypoglycemia in the manager shipping hours. His pneumonia problem has resolved. His non-STEMI was treated conservatively per passenger car upholsterer apprentice. No intervention was recommended. The patient's overal l prognosis is poor and per my discussion with daughter, advance directive of do not resuscitate was placed in the chart. Insurance refused any inpatient rehab benefit, so Social Service helped us to m edgar arrangements for the patient to go to prison facility and today he was discharged in sta ble condition given his white count is slightly high, which I believe is rather reactive in nature. His urinalysis is normal. Chest x-ray, no pneumonia as of yesterday. Final Diagnoses: 1.Type 2 diabetes mellitus, uncontrolled, with diabetic ketoacidosis. 2.Volume depletion. 3.Non-ST segment elevation myocardial infarction. 4.Toxic encephalopathy. 5.Coronary artery disease. 6.Pneumonia. 7.Paroxysmal atrial fibrillation. 8.Hypertension. 9.Hyperlipidemia. 10.Hypothyroidism. 11.Anemia. 12.Generalized weakness. 13.Debility. AUNG/MODL Voice ID: [id number] Report ID: [id number]
== END 2019-04-07 14:36 | DRG 637 ==
LOC: ER 07:45 → ERHOLD 09:15 → 3RD-ICU 10:09 → 4TH 03-30 21:00 → 2ND 04-02 18:43
PROVIDERS: ADMIT Internal Medicine; ATTEND Internal Medicine
PROC: 02HV33Z Insertion of Infusion Device into Superior Vena Cava, Percutaneous Approach (ICD-10-PCS; principal; 2019-03-24)
PROC: 0DH67UZ Insertion of Feeding Device into Stomach, Via Natural or Artificial Opening (ICD-10-PCS; 2019-03-25)
PROC: 02HV33Z Insertion of Infusion Device into Superior Vena Cava, Percutaneous Approach (ICD-10-PCS; 2019-03-29)
DX: E11.10 Type 2 diabetes mellitus with ketoacidosis without coma (principal); I21.4 Non-ST elevation (NSTEMI) myocardial infarction; G92 Toxic encephalopathy; J18.9 Pneumonia, unspecified organism; N18.4 Chronic kidney disease, stage 4 (severe); E87.1 Hypo-osmolality and hyponatremia; E86.9 Volume depletion, unspecified; I25.119 Atherosclerotic heart disease of native coronary artery with unspecified angina pectoris; I48.0 Paroxysmal atrial fibrillation; E78.5 Hyperlipidemia, unspecified; Z66 Do not resuscitate; I12.9 Hypertensive chronic kidney disease with stage 1 through stage 4 chronic kidney disease, or unspecified chronic kidney disease; E11.22 Type 2 diabetes mellitus with diabetic chronic kidney disease; D63.1 Anemia in chronic kidney disease; R31.0 Gross hematuria; E87.6 Hypokalemia; R19.7 Diarrhea, unspecified; E11.649 Type 2 diabetes mellitus with hypoglycemia without coma; E87.5 Hyperkalemia; E03.9 Hypothyroidism, unspecified; R53.81 Other malaise
CPT/HCPCS: 36415; 51702; 70450; 71045; 71250; 72125; 74018; 74230; 80048; 80076; 81001; 81003; 81015; 82550; 82553; 82805; 82947; 82962; 83605; 83690; 83735; 83880; 84100; 84132; 84145; 84484; 85025; 85610; 85730; 87040; 87086; 87088; 87205; 87493; 92526; 92610; 92611; 93005; 94640; 96365; 96367; 96368; 96375; 97110; 97116; 97162; 97166; 97530; 99285; J0696; J1644; J1940; J2543; J7030

== ENCOUNTER 2019-05-29 08:03 | Inpatient (IN) | payer OTHER ==
[2019-05-29 08:33] LABS: Basophils % 0.4 % (0-1.3); Eosinophils % 1.8 % (0-4.4); Hematocrit 37.3 % (39.6-49.0); Lymphocytes % 16.5 % (15.3-44.8); MPV 11.6 fL (7.6-11.3); Monocytes % 5.9 % (3.3-12.3); RBC Red Blood Cell Count 4.02 M/uL (4.33-5.43)
[2019-05-29] MEDS ORDERED: LEVALBUTEROL 1.25 MG/3 ML NEB ONE ×2 (08:45→11:57)
[2019-05-29 09:04] LABS: Potassium 4.2 mmol/L (3.5-5.1); Troponin (Emerg Dept Use Only) 0.03 ng/mL (0.0-0.045)
[2019-05-29 09:09] LABS: Protime INR 0.98
--- NOTE | 2019-05-29 09:48 | RAD REPORT ---
EXAM DESCRIPTION: Travis Single View05/29/2019 8:26 am CLINICAL HISTORY: Cough COMPARISON: May 03, 2019 FINDINGS: Right upper lobe opacity has developed Mild interstitial pulmonary edema has developed Heart is mildly to moderately enlarged IMPRESSION: Right upper lobe opacity probably representing pneumonia Mild interstitial pulmonary edema
--- NOTE | 2019-05-29 09:52 | EDPHYS ---
Physician Documentation [facility] Name: Abner Perea Age: 88 yrs Sex: Male : 1930 Arrival Date: 05/29/2019 Time: 08:05 Bed 16 Private MD: ED Physician Spenser Jerry HPI: 05/29 08:09 This 88 yrs old Male presents to ER via Unassigned with complaints of rn Shortness Of Breath. 08:09 The patient has shortness of breath at rest. Onset: The symptoms/episode began/occurred rn this morning. Duration: The symptoms are continuous. The patient's shortness of breath is alleviated by nebulizer treatment. Associated signs and symptoms: Pertinent positives: productive cough, Pertinent negatives: chest pain, fever, hemoptysis, loss of consciousness, vomiting. Severity of symptoms: At their worst the symptoms were moderate in the emergency department the symptoms have improved. It is unknown whether or not the patient has had similar symptoms in the past. Patient reports sob, began this morning, at rest, EMS got O2 sats in mid 70s, given albuterol and atrovent with improvement into high 80s. Patient denies previous lung problems, denies smoking hx or COPD/asthma. Not on home O2. Reports in and out of hospitals and rehab recently for strokes. Reports left side is weak from strokes. No chest pain. . Historical: - Allergies: 07:55 No Known Allergies; rb1 - Home Meds: 07:55 aspirin 81 mg Oral TbEC 1 tab once daily [Active]; Levemir 40 units subcutaneous soln rb1 daily [Active]; levothyroxine 88 mcg tab 1 tab once daily [Active]; Isosorbide 30mg Daily 60 mg daily [Active]; Plavix 75 mg Oral tab 1 tab once daily [Active]; simvastatin 80 mg Oral tab daily [Active]; Novolog 100 unit/mL Sub-Q soln three times a day [Active]; gabapentin 100 mg oral cap 1 caps 3 times per day [Active]; Flomax 0.4 mg Oral cp24 1 cap once daily [Active]; metoprolol tartrate 50 mg Oral tab 1 tab 2 times per day [Active]; folic acid 1 mg Oral tab 1 tab once daily [Active]; multivitamin oral oral [Active]; - PMHx: 07:55 Diabetes - IDDM; Hypertension; Hypothyroidism; Myocardial infarction; CVA; rb1 - PSHx: 07:55 None; rb1 - Immunization history:: Adult Immunizations up to date. - Social history:: Smoking status: Patient/guardian denies using tobacco. - Family history:: not pertinent. - Ebola Screening: : Patient negative for fever greater than or equal to 101.5 degrees Fahrenheit, and additional compatible Ebola Virus Disease symptoms. - Hospitalizations: : Patient was recently seen at. ROS: 08:09 Constitutional: Negative for fever, chills, and weight loss, Eyes: Negative for injury, rn pain, redness, and discharge, Neck: Negative for injury, pain, and swelling, Cardiovascular: Negative for chest pain, palpitations Respiratory: Negative for pleuritic chest pain Abdomen/GI: Negative for abdominal pain, nausea, vomiting, diarrhea, and constipation MS/Extremity: Negative for injury and deformity, Skin: + bruising to extremities Neuro: Negative for headache, numbness, tingling, and seizure. Exam: 08:25 Constitutional: This is a well developed, well nourished patient who is awake, alert, rn + moderate tachypnea. Smiling. Head/Face: Normocephalic, atraumatic. ENT: dry MM, no stridor Cardiovascular: Irregular rhythm, no murmur, distal pulses weak but intact and equal Respiratory: + moderate tachypnea with bilateral crackles and wheezing greater on left side Abdomen/GI: soft, non-tender MS/ Extremity: Pulses equal, no cyanosis. Neuro: Awake and alert, GCS 15, oriented to person, place, and situation. Residual weakness on left side of body. Senssation grossly intact. Vital Signs: 08:00 BP 192 / 98; Pulse 99; Resp 27; Temp 98.1(TE); Pulse Ox 91% on 2 lpm NC; Weight 96.62 rb1 kg (R); Height 5 ft. 11 in. (180.34 cm) (R); Pain 0/10; 09:00 BP 198 / 90; Pulse 100; Resp 25; Temp 98.0(TE); Pulse Ox 96% on 2 lpm NC; Pain 0/10; rb1 09:38 BP 150 / 92; Pulse 100; Resp 22; Pulse Ox 94% on 2 lpm NC; Pain 0/10; rb1 10:37 BP 146 / 74; Pulse 103; Resp 23; Temp 97.9(O); Pulse Ox 91% on 2 lpm NC; Pain 0/10; rb1 11:30 BP 144 / 66; Pulse 103; Resp 23; Temp 98.0(O); Pulse Ox 98% on 15% Non-rebreather mask; rb1 Pain 0/10; 12:30 BP 160 / 93; Pulse 98; Resp 17; Temp 98.1(TE); Pulse Ox 100% on 15% Non-rebreather rb1 mask; Pain 0/10; 13:17 BP 155 / 77; Pulse 94; Resp 15; Temp 97.5(TE); Pulse Ox 100% on 15% Non-rebreather rb1 mask; Pain 0/10; 08:00 Body Mass Index 29.71 (96.62 kg, 180.34 cm) rb1 MDM: 08:05 Patient medically screened. rn 09:49 Differential diagnosis: pneumonia, Pneumothorax pulmonary edema, Pulmonary Embolism. rn Data reviewed: vital signs, nurses notes, lab test result(s), EKG, radiologic studies, plain films, and as a result, I will admit patient. Test interpretation: by ED physician or midlevel provider: plain radiologic studies, CXR with right upper lobe pneumonia. Counseling: I had a detailed discussion with the patient and/or guardian regarding: the historical points, exam findings, and any diagnostic results supporting the discharge/admit diagnosis, lab results, radiology results, the need for further work-up and treatment in the hospital. Response to treatment: the patient's symptoms have mildly improved after treatment, and as a result, I will admit patient. Admission orders: after a detailed discussion of the patient's condition and case, the admit orders are written by me. ED course: Pt with new right upper lobe pneumonia, hypoxemia, elevated WBC, will admit to Dr. Mclean.. 12:22 ED course: Dr mclean requests changing rocephin to zosyn to broaden coverage, orders rn changed.. 05/29 08:07 Order name: Blood Culture Adult (2) rn 05/29 08:07 Order name: BMP rn 05/29 08:07 Order name: CBC with Diff rn 05/29 08:07 Order name: NT PRO-BNP; Complete Time: 09:23 rn 05/29 08:07 Order name: PT-INR; Complete Time: 09:23 rn 05/29 08:07 Order name: Ptt, Activated; Complete Time: 09:23 rn 05/29 08:07 Order name: XRAY CXR (1 view); Complete Time: 09:49 rn 05/29 08:07 Order name: Troponin (emerg Dept Use Only); Complete Time: 09:23 rn 05/29 08:07 Order name: Procalcitonin; Complete Time: 09:49 rn 05/29 08:07 Order name: Lactate; Complete Time: 09:49 rn 05/29 08:08 Order name: Blood Culture EDMS 05/29 08:08 Order name: Basic Metabolic Panel; Complete Time: 09:23 EDMS 05/29 08:08 Order name: CBC with Automated Diff; Complete Time: 08:48 EDMS 05/29 08:07 Order name: EKG; Complete Time: 08:09 rn 05/29 08:07 Order name: Cardiac monitoring; Complete Time: 08:18 rn 05/29 08:07 Order name: EKG - Nurse/Tech; Complete Time: 08:54 rn 05/29 08:07 Order name: IV Saline Lock; Complete Time: 08:18 rn 05/29 08:07 Order name: Labs collected and sent; Complete Time: 08:18 rn 05/29 08:07 Order name: O2 Per Protocol; Complete Time: 08:18 rn 05/29 08:07 Order name: O2 Sat Monitoring; Complete Time: 08:18 rn 05/29 08:13 Order name: Extrem Venous W Compression [place] US; Complete Time: 10:09 rn 05/29 08:36 Order name: UPPER EXTREMITY VENOUS UNILATE; Complete Time: 10:09 EDMS 05/29 12:33 Order name: Diet Ada 2000 Slava; Complete Time: 12:33 rb1 05/29 08:08 Order name: Glucose Level; Complete Time: 08:18 rn 05/29 08:34 Order name: Labs - recollect needed; Complete Time: 08:53 eb Administered Medications: 08:30 Drug: Xopenex 1.25 mg Route: Inhalation; rb1 10:30 Drug: Rocephin - (cefTRIAXone) 1 grams Route: IVPB; Infused Over: 30 mins; Site: left rb1 antecubital; 11:00 Follow up: Response: No adverse reaction; IV Status: Completed infusion rb1 10:30 Drug: AZITHromycin 500 mg Route: IVPB; Infused Over: 1 hrs; Site: left antecubital; rb1 11:44 Follow up: Response: No adverse reaction; IV Status: Completed infusion rb1 10:30 Drug: Insulin Regular Human 10 units {Co-Signature: em (Sudeep Lopes [facility]).} Route: rb1 Sub-Q; Site: left lower abdomen; 11:49 Follow up: Response: No adverse reaction; Blood sugar is elevated; BS 429 rb1 11:53 Drug: Zosyn 3.375 grams Route: IVPB; Infused Over: 60 mins; Site: left antecubital; rb1 12:56 Follow up: Response: No adverse reaction; IV Status: Completed infusion rb1 11:53 Drug: Xopenex 1.25 mg Route: Inhalation; rb1 Point of Care Testing: Blood Glucose: 08:18 Blood Glucose: 405 mg/dL; ms 11:49 Blood Glucose: 429 mg/dL; rb1 Ranges: Critical Glucose Levels:Adult <50 mg/dl or >400 mg/dl <40 mg/dl or >180 mg/dl Disposition: 05/29/19 09:51 Hospitalization ordered by Nica Mclean for Inpatient Admission. Preliminary diagnosis are Pneumonia, Hypoxemia, Dyspnea, unspecified, Dehydration. - Bed requested for Telemetry/MedSurg (Inpatient). - Status is Inpatient Admission. rb1 - Condition is Stable. - Problem is new. - Symptoms have improved. UTI on Admission? No Signatures: Dispatcher [employer] [facility] Spenser Jerry MD MD rn Barber, Rebecca, RN RN rb1 Angel Gonzalez RN RN ja1 [facility] Corrections: (The following items were deleted from the chart) 09:02 08:09 BLOOD CULTURE*+[id number].LAB.BRZ ordered. [facility] 13:01 09:51 Hospitalization Ordered by A Vivien GARCIA for Inpatient Admission. Preliminary ja1 diagnosis is Pneumonia; Hypoxemia; Dyspnea, unspecified; Dehydration. Bed requested for Telemetry/MedSurg (Inpatient). Status is Inpatient Admission. Condition is Stable. Problem is new. Symptoms have improved. UTI on Admission? No. rn 13:32 13:01 05/29/2019 09:51 Hospitalization Ordered by A Vivien GARCIA for Inpatient Admission. rb1 Preliminary diagnosis is Pneumonia; Hypoxemia; Dyspnea, unspecified; Dehydration. Bed requested for Telemetry/MedSurg (Inpatient). Status is Inpatient Admission. Condition is Stable. Problem is new. Symptoms have improved. UTI on Admission? No. ja1
--- NOTE | 2019-05-29 09:52 | ER ---
Nurse's Notes [facility] Name: Abner Perea Age: 88 yrs Sex: Male : 1930 Arrival Date: 05/29/2019 Time: 08:05 Bed 16 Private MD: Diagnosis: Pneumonia;Hypoxemia;Dyspnea, unspecified;Dehydration Presentation: 05/29 07:55 Presenting complaint: EMS states: Pt. c/o SOB, was 78% on RA, Sob started at 0400 this rb1 morning. A \T\ O x 4, History of CVA, left sided weakness, WA, Hypertension, Hypothyroidism. NKDA Bilateral rales in the lower lobes, Administered Albuteral and Atrovent treatment. BP 180's/100, 12-Lead showed 1 degree block. Transition of care: patient was not received from another setting of care. Onset of symptoms was May 29, 2019 at 04:00. Risk Assessment: Do you want to hurt yourself or someone else? Patient reports no desire to harm self or others. Initial Sepsis Screen: Does the patient meet any 2 criteria? No. Patient's initial sepsis screen is negative. Does the patient have a suspected source of infection? No. Patient's initial sepsis screen is negative. Care prior to arrival: Medication(s) given: Albuterol Neb Atrovent Neb x 1. 07:55 Method Of Arrival: EMS: [facility] rb1 07:55 Acuity: GEORGE 3 rb1 Triage Assessment: 07:55 General: Appears in no apparent distress. comfortable, Behavior is calm, cooperative, rb1 Denies fever. Pain: Denies pain. Neuro: Level of Consciousness is awake, alert, obeys commands, Oriented to person, place, time, situation. Cardiovascular: Capillary refill < 3 seconds is brisk in bilateral fingers. Respiratory: Reports shortness of breath at rest Airway is patent Respiratory effort is even, labored, Respiratory pattern is regular, symmetrical, Breath sounds with crackles bilaterally. Onset: The symptoms/episode began/occurred this morning, the patient has moderate shortness of breath. GI: No signs and/or symptoms were reported involving the gastrointestinal system. : No signs and/or symptoms were reported regarding the genitourinary system. Derm: Bruising that is dark purple, on left arm. Musculoskeletal: left sided weakness. Historical: - Allergies: 07:55 No Known Allergies; rb1 - Home Meds: 07:55 aspirin 81 mg Oral TbEC 1 tab once daily [Active]; Levemir 40 units subcutaneous soln rb1 daily [Active]; levothyroxine 88 mcg tab 1 tab once daily [Active]; Isosorbide 30mg Daily 60 mg daily [Active]; Plavix 75 mg Oral tab 1 tab once daily [Active]; simvastatin 80 mg Oral tab daily [Active]; Novolog 100 unit/mL Sub-Q soln three times a day [Active]; gabapentin 100 mg oral cap 1 caps 3 times per day [Active]; Flomax 0.4 mg Oral cp24 1 cap once daily [Active]; metoprolol tartrate 50 mg Oral tab 1 tab 2 times per day [Active]; folic acid 1 mg Oral tab 1 tab once daily [Active]; multivitamin oral oral [Active]; - PMHx: 07:55 Diabetes - IDDM; Hypertension; Hypothyroidism; Myocardial infarction; CVA; rb1 - PSHx: :55 None; rb1 - Immunization history:: Adult Immunizations up to date. - Social history:: Smoking status: Patient/guardian denies using tobacco. - Family history:: not pertinent. - Ebola Screening: : Patient negative for fever greater than or equal to 101.5 degrees Fahrenheit, and additional compatible Ebola Virus Disease symptoms. - Hospitalizations: : Patient was recently seen at. Screenin:55 Abuse screen: Denies threats or abuse. Nutritional screening: No deficits noted. rb1 Tuberculosis screening: No symptoms or risk factors identified. Fall Risk Fall in past 12 months (25 points). Secondary diagnosis (15 points) impaired mobility, IV access (20 points). Ambulatory Aid- Crutches/Cane/Walker (15 pts). Gait- Impaired (20 pts.). Mental Status- Oriented to own ability (0 pts). Total Stone Fall Scale indicates High Risk Score (45 or more points). Fall prevention measures have been instituted. Side Rails Up X 2 Placed Close to Nursing Station 1:1 Attendant Assigned Frequent Obs/Assessments Occuring As available patient and family educated on Fall Prevention Program and Strategies. Assessment: 07:55 General: See triage assessment. rb1 08:05 Cardiovascular: Rhythm is sinus tachycardia. rb1 08:55 Reassessment: Patient appears in no apparent distress at this time. No changes from rb1 previously documented assessment. is at the bedside. 09:55 Reassessment: Patient appears in no apparent distress at this time. Patient and/or rb1 family updated on plan of care and expected duration. Pain level reassessed. Patient is alert, oriented x 3, equal unlabored respirations, skin warm/dry/pink. 10:40 Reassessment: Patient appears in no apparent distress at this time. Patient and/or rb1 family updated on plan of care and expected duration. Pain level reassessed. Patient is alert, oriented x 3, equal unlabored respirations, skin warm/dry/pink. Patient denies pain at this time. 11:30 Reassessment: Patient appears in no apparent distress at this time. No changes from rb1 previously documented assessment. 11:45 Reassessment: Informed Dr. Jerry that the pt had audible wheezing. Received order rb1 Xopenex 1.25 x 1, 100% verbal read back. 12:40 Reassessment: Patient appears in no apparent distress at this time. Patient and/or rb1 family updated on plan of care and expected duration. Pain level reassessed. Patient is alert, oriented x 3, equal unlabored respirations, skin warm/dry/pink. 13:05 Reassessment: Tried to call report, Sravanthi asked me to call back in a few minutes rb1 because the nurse was not notified that she was getting a pt. 13:25 Reassessment: Called report to IFTIKHAR Bloom. Information from the SB[facility] was given. All rb1 questions asked and answered. 13:28 Reassessment: Patient appears in no apparent distress at this time. Patient and/or rb1 family updated on plan of care and expected duration. Pain level reassessed. Patient is alert, oriented x 3, equal unlabored respirations, skin warm/dry/pink. Troponin was drawn and sent by Rebeca yeast pusher, before the pt. went to the floor Patient denies pain at this time. Vital Signs: 08:00 BP 192 / 98; Pulse 99; Resp 27; Temp 98.1(TE); Pulse Ox 91% on 2 lpm NC; Weight 96.62 rb1 kg (R); Height 5 ft. 11 in. (180.34 cm) (R); Pain 0/10; 09:00 BP 198 / 90; Pulse 100; Resp 25; Temp 98.0(TE); Pulse Ox 96% on 2 lpm NC; Pain 0/10; rb1 09:38 BP 150 / 92; Pulse 100; Resp 22; Pulse Ox 94% on 2 lpm NC; Pain 0/10; rb1 10:37 BP 146 / 74; Pulse 103; Resp 23; Temp 97.9(O); Pulse Ox 91% on 2 lpm NC; Pain 0/10; rb1 11:30 BP 144 / 66; Pulse 103; Resp 23; Temp 98.0(O); Pulse Ox 98% on 15% Non-rebreather mask; rb1 Pain 0/10; 12:30 BP 160 / 93; Pulse 98; Resp 17; Temp 98.1(TE); Pulse Ox 100% on 15% Non-rebreather rb1 mask; Pain 0/10; 13:17 BP 155 / 77; Pulse 94; Resp 15; Temp 97.5(TE); Pulse Ox 100% on 15% Non-rebreather rb1 mask; Pain 0/10; 08:00 Body Mass Index 29.71 (96.62 kg, 180.34 cm) rb1 ED Course: 07:55 Patient has correct armband on for positive identification. Bed in low position. Call rb1 light in reach. Side rails up X2. gambling monitor on. Pulse ox on. NIBP on. Warm blanket given. Pillow given. 08:00 Arm band placed on right wrist. rb1 08:05 Patient arrived in ED. rb1 08:05 Spenser Jerry MD is Attending Physician. rn 08:18 Inserted saline lock: 22 gauge in left antecubital area, using aseptic technique. Blood ms collected. 08:24 Triage completed. rb1 08:27 XRAY CXR (1 view) In Process Unspecified. EDMS 08:58 Su Capps, RN is Primary Nurse. rb1 09:45 Ultrasound completed. Patient tolerated well. sg3 09:48 Extrem Venous W Compression [place] US In Process Unspecified. EDMS 09:48 UPPER EXTREMITY VENOUS UNILATE In Process Unspecified. EDMS 09:51 Nica Puga MD is Hospitalizing Provider. rn 13:31 No provider procedures requiring assistance completed. Patient admitted, IV remains in rb1 place. Administered Medications: 08:30 Drug: Xopenex 1.25 mg Route: Inhalation; rb1 10:30 Drug: Rocephin - (cefTRIAXone) 1 grams Route: IVPB; Infused Over: 30 mins; Site: left rb1 antecubital; 11:00 Follow up: Response: No adverse reaction; IV Status: Completed infusion rb1 10:30 Drug: AZITHromycin 500 mg Route: IVPB; Infused Over: 1 hrs; Site: left antecubital; rb1 11:44 Follow up: Response: No adverse reaction; IV Status: Completed infusion rb1 10:30 Drug: Insulin Regular Human 10 units {Co-Signature: em (Sudeep Lopes [facility]).} Route: rb1 Sub-Q; Site: left lower abdomen; 11:49 Follow up: Response: No adverse reaction; Blood sugar is elevated; BS 429 rb1 11:53 Drug: Zosyn 3.375 grams Route: IVPB; Infused Over: 60 mins; Site: left antecubital; rb1 12:56 Follow up: Response: No adverse reaction; IV Status: Completed infusion rb1 11:53 Drug: Xopenex 1.25 mg Route: Inhalation; rb1 Point of Care Testing: Blood Glucose: 08:18 Blood Glucose: 405 mg/dL; ms 11:49 Blood Glucose: 429 mg/dL; rb1 Ranges: Intake: Outcome: 09:51 Decision to Hospitalize by Provider. rn 13:31 Admitted to Med/surg accompanied by tech, via stretcher, room 405, with oxygen, with rb1 chart, Report called to IFTIKHAR Bloom 13:31 Condition: stable 13:31 Instructed on the need for admit. 13:32 Patient left the ED. rb1 Signatures: Dispatcher [employer] Rebeca Santana ms, Roman, MD MD rn Barber, Rebecca, RN RN rb1 Rafaela Galloway 3 Sudeep Lopes [facility] Corrections: (The following items were deleted from the chart) 14:48 14:47 Respiratory: rb1 rb1 14:49 07:55 Respiratory: Reports shortness of breath at rest Airway is patent Respiratory rb1 effort is even, unlabored, Respiratory pattern is regular, symmetrical, Onset: The symptoms/episode began/occurred this morning, the patient has moderate shortness of breath rb1 18:52 07:55 Respiratory: Reports shortness of breath at rest Airway is patent Respiratory rb1 effort is even, unlabored, Respiratory pattern is regular, symmetrical, Breath sounds with crackles bilaterally. Onset: The symptoms/episode began/occurred this morning, the patient has moderate shortness of breath rb1
--- NOTE | 2019-05-29 10:05 | RAD REPORT ---
EXAM DESCRIPTION: USExtrem Venous W Compress Bil05/29/2019 9:46 am CLINICAL HISTORY: Bilateral leg swelling COMPARISON: January 2019 FINDINGS: The common femoral, superficial femoral, popliteal and posterior tibial veins bilaterally are compressible and demonstrate augmentation. Doppler demonstrates good flow. IMPRESSION: No evidence of deep venous thrombosis involving either lower extremity.
--- NOTE | 2019-05-29 10:07 | RAD REPORT ---
EXAM DESCRIPTION: US - UPPER EXTREMITY VENOUS UNILATE - 05/29/2019 9:46 am CLINICAL HISTORY: /left arm swelling. COMPARISON: None. FINDINGS: Left internal jugular vein, left subclavian vein, left axillary vein, left brachial vein, left cephalic, left basilic veins demonstrate phasic signal. The veins are compressible. Doppler demo nstrates good flow. . IMPRESSION: No sonographic evidence of thrombus involving the left upper extremity veins.
[2019-05-29] MEDS ORDERED: CEFTRIAXONE/SWI 1gm 1 GM/10 ML SYR ONE (10:10)
[2019-05-29] MEDS ORDERED: AZITHROMYCIN 500 MG/250 ML BAG IV SCH (10:15)
[2019-05-29] MEDS ORDERED: INSULIN -REGULAR HUMAN 50 UNIT/0.5 ML ML ONE (10:42)
[2019-05-29] MEDS ORDERED: PIPER/TAZO/NS 3.375gm 3.375 GM/100 ML BAG ONE (11:56)
[2019-05-29] MEDS ORDERED: D50W 25 GM/50 ML SYRINGE IV PRN ×3 (12:35→18:29)
[2019-05-29] MEDS ORDERED: GLUCAGON 1 MG/VIAL IM PRN ×3 (12:35→18:29)
[2019-05-29] MEDS ORDERED: ONDANSETRON 4 MG/2 ML VIAL IV PRN (12:35)
[2019-05-29] MEDS: INSULIN -REGULAR HUMAN 50 UNIT/0.5 ML ML SQ SCH ×3 (12:35→18:03)
[2019-05-29 17:03] VITALS: BMI 30.9
[2019-05-29] MEDS ORDERED: METOPROLOL XL 50 MG TAB PO SCH (18:00)
[2019-05-29] MEDS: PIPER/TAZO/NS 3.375gm 3.375 GM/100 ML BAG IVPB SCH (18:13)
[2019-05-29] MEDS ORDERED: ATORVASTATIN 40 MG TAB PO SCH (21:00)
[2019-05-29] MEDS ORDERED: HEPARIN 5000 UNIT/ML 1 ML VIAL SQ SCH (21:00)
[2019-05-29] MEDS: ATORVASTATIN 40 MG TAB PO SCH (22:52)
[2019-05-29] MEDS: HEPARIN 5000 UNIT/ML 1 ML VIAL SQ SCH (22:53)
--- NOTE | 2019-05-30 01:00 | HP ---
Date of Admission: 05/29/2019 Chief Complaint: Shortness of breath. History Of Present Illness: This is an 88-year-old pleasant male patient living at home with his , started to have shortness of breath around 4 o' clock this morning when he was brought into emergency room. After he was evaluated, he was admitted to the hospital with pneumonia problem. I saw him in emergency room. The patient has some cough, but not able to cough up any mucus. Denies any fever, chills, nausea, vomiting. Denies any trouble swallowing. Denies any acid reflux problem. When he came in, his oxygen saturation was low in range between 70 to 80 and with oxygen nebulizer treatment , he has felt better. Allergies: NO KNOWN ALLERGIES. Medications: List reviewed. Review of Systems: Respiratory: As mentioned above. All other systems reviewed and negative. Past Medical History: Significant for stroke in January of this year, known STEMI in March of this year with diabetic ketoacidosis at that time. 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 Past Surgical History: Significant for cataract surgery, tonsillectomy. Family History: Hypertension, stroke, gastric cancer. Social History: Negative for smoking and alcohol use. Physical Examination: Vital Signs: Height 5 feet 11 inches, weight 96.62 kg, temperature 98.1, pulse 99, respiratory rate 27, blood pressure 192/98, oxygen saturation 91% on 2 LPM nasal canula. General: The patient appears weaker than normal. Not using accessory muscles of respiration. HEENT: Head atraumatic, normocephalic. Conjunctivae nonerythematous. Sclerae white. Mouth, no thrush or edema noted. Ears/Nose, no mass, lesion, discharge noted. Neck: Supple. No JVD, lymph nodes, bruit, thyromegaly noted. Lungs: Presence of rales noted in the right lung field, scattered all over but mostly in the upper half of the lung. Heart: Normal heart sounds, no murmur or gallop. Abdomen: Soft, bowel sounds normal. No guarding, rigidity, tenderness, mass, hepatosplenomegaly, distention, or bruit noted. Extremities: Very trace edema of feet. Skin: No rash, ulcer, cellulitis. Lymphatics: No lymph node enlargement in neck, supraclavicular, infraclavicular region. Neuro: No focal neurological deficit. Chest: Unremarkable. External Genitalia: Deferred. Rectal: Deferred. Laboratory Data: White count 12.3, hemoglobin 11.7, platelets 201. Sodium 140 , potassium 4.2, chloride 107, bicarb 26, BUN 33, creatinine 1.96, glucose 400. Lactic acid 1.4. Procalcitonin less than 0.05. Troponin 0.03. Venous Doppler of upper and lower extremity negative for DVT. Chest x-ray, right upper lobe pneumonia. Impression: 1. Pneumonia, rule out aspiration pneumonia. 2. Chronic kidney disease stage 4. 3. Anemia due to chronic kidney disease. 4. Diabetes mellitus type 2, uncontrolled. 5. Coronary artery disease. 6. Paroxysmal atrial fibrillation. 7. Hypertension. 8. Hyperlipidemia. 9. Hypothyroidism. 10. Generalized weakness. 11. Debility. Plan: The patient will be admitted to the hospital for further evaluation and management of this problem. He is appropriate for inpatient and is expected to spend 2 midnights in hospital. He has significant generalized weakness and debility as a result of this acute medical illness. We will consult Physical Therapy. Fall precautions. DVT prophylaxis will be given per order. Home medications will be continued per order. 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 We will continue his long-acting insulin to be given in the morning the way he takes it at home. IV antibiotic Zosyn and azithromycin will be given. We will continue oxygen nebulizer treatment, and I will see him tomorrow for followup. I will communicate details with his daughter. AUNG/MODL Voice ID: [id number] LINDA
[2019-05-30] MEDS: PIPER/TAZO/NS 3.375gm 3.375 GM/100 ML BAG IVPB SCH ×4 (01:13→17:12)
[2019-05-30] MEDS: ALBUTEROL 2.5 MG/3 ML NEB SOL NEB PRN ×2 (03:40→07:07)
[2019-05-30] MEDS: IPRATROPIUM BROM 0.5MG/2.5ML NEB PRN ×2 (03:40→07:07)
[2019-05-30] MEDS: METOPROLOL XL 50 MG TAB PO SCH ×2 (05:16→17:13)
[2019-05-30] MEDS: LEVOTHYROXINE SOD 0.088 MG TAB PO SCH (05:33)
[2019-05-30] MEDS: LEVOTHYROXINE SOD 0.1 MG TAB PO SCH (05:33)
[2019-05-30] MEDS ORDERED: LEVOTHYROXINE SOD 0.088 MG TAB PO SCH (06:30)
[2019-05-30] MEDS ORDERED: LEVOTHYROXINE SOD 0.1 MG TAB PO SCH (06:30)
[2019-05-30 06:40] LABS: Absolute Lymphocytes (CBC) 0.9 K/uL (0.7-4.9); Basophils % 0.4 % (0-1.3); Hematocrit 36.6 % (39.6-49.0); Lymphocytes % 6.1 % (15.3-44.8); MPV 11.7 fL (7.6-11.3); Monocytes % 4.8 % (3.3-12.3); RBC Red Blood Cell Count 3.89 M/uL (4.33-5.43)
[2019-05-30 06:52] LABS: Potassium 4.5 mmol/L (3.5-5.1)
[2019-05-30 07:50] LABS: Blood Morphology Comment NOT SEEN (NOT SEEN); Platelet Estimate ADEQ
[2019-05-30] MEDS: INSULIN -REGULAR HUMAN 50 UNIT/0.5 ML ML SQ SCH ×3 (07:50→16:26)
[2019-05-30] MEDS ORDERED: INSULIN GLARGINE 100 UNITS/ML SQ SCH ×2 (08:00)
[2019-05-30] MEDS ORDERED: INSULIN -REGULAR HUMAN 50 UNIT/0.5 ML ML IV ONE ×3 (08:37→16:23)
[2019-05-30] MEDS: INSULIN GLARGINE 100 UNITS/ML SQ SCH (08:56)
[2019-05-30] MEDS: CLOPIDOGREL 75 MG TABLET PO SCH (08:58)
[2019-05-30] MEDS: TAMSULOSIN 0.4 MG SR CAP PO SCH (08:58)
[2019-05-30] MEDS: ASPIRIN EC 81 MG TAB PO SCH (08:58)
[2019-05-30] MEDS: ISOSORBIDE MONO SR 60 MG TAB PO SCH (08:58)
[2019-05-30] MEDS: FOLIC ACID 1 MG TABLET PO SCH (08:58)
[2019-05-30] MEDS: AZITHROMYCIN IV 250 MG in NA CHLORIDE 0.9% 250 ML IVPB SCH (08:58)
[2019-05-30] MEDS: HEPARIN 5000 UNIT/ML 1 ML VIAL SQ SCH ×2 (08:59→21:53)
[2019-05-30] MEDS ORDERED: TAMSULOSIN 0.4 MG SR CAP PO SCH (09:00)
[2019-05-30] MEDS ORDERED: FOLIC ACID 1 MG TABLET PO SCH (09:00)
[2019-05-30] MEDS ORDERED: CLOPIDOGREL 75 MG TABLET PO SCH (09:00)
[2019-05-30] MEDS ORDERED: ISOSORBIDE MONO SR 60 MG TAB PO SCH (09:00)
[2019-05-30] MEDS ORDERED: ASPIRIN EC 81 MG TAB PO SCH (09:00)
[2019-05-30] MEDS ORDERED: GLUCAGON 1 MG/VIAL IM PRN ×5 (09:48→18:32)
[2019-05-30] MEDS ORDERED: D50W 25 GM/50 ML SYRINGE IV PRN ×5 (09:48→18:32)
--- NOTE | 2019-05-30 10:02 | EKG ---
Test Date: 2019-05-29 Test Time: 08:41:27 Cd Mixer: MEASUREMENT RESULTS: Intervals: Rate: 96 NM: 262 QRSD: 110 QT: 356 QTc: 449 [place]: P: 21 NM: 262 QRS: 25 T: 216 INTERPRETIVE STATEMENTS: Sinus rhythm with 1st degree AV block Possible Inferior infarct, age undetermined Cannot rule out Anterior infarct, age undetermined ST & T wave abnormality, consider lateral ischemia Abnormal ECG Compared to ECG 03/23/2019 21:35:21 First degree AV block now present ST (T wave) deviation now present Possible ischemia now present Atrial fibrillation no longer present Myocardial infarct finding still present Electronically Signed On 05-30-19 10:01:10 CDT by Christophe Mcfadden
[2019-05-30] MEDS: INSULIN -REGULAR HUMAN 50 UNIT/0.5 ML ML IV ONE ×4 (10:13→13:51)
[2019-05-30] MEDS ORDERED: IPRATROPIUM BROM 0.5MG/2.5ML NEB PRN (11:00)
[2019-05-30] MEDS ORDERED: ALBUTEROL 2.5 MG/3 ML NEB SOL NEB PRN (11:00)
--- NOTE | 2019-05-30 13:43 | PN ---
Date of Progress Note: 05/30/2019 Subjective: The patient was seen this morning for followup. He was lying in bed, not in any distres s. The patient had hypoxia this morning on oxygen, so it was changed over to BiPAP. When I saw him, he was on BiPAP. He was comfortable. Denied any other complaints. He was not in any respiratory d istress when I saw him. Objective: Vital Signs: Reviewed. HEENT: Examination unremarkable. Lungs: Clear to auscultation. Heart: Sounds normal. Abdomen: Soft. Bowel sounds normal. No guarding, rigidity, tenderness, or distention. Extremities: No leg edema. Other extremity exam, trace leg edema. Laboratory Data: White count 15.2, hemoglobin 11.5, platelets 197. Sodium 136, potassium 4.5, chlor eva 104, bicarb 17, BUN 32, creatinine 2.04, glucose 568. Impression: 1.Pneumonia, rule out aspiration pneumonia. 2.Diabetes mellitus type 2, uncontrolled. 3.Coronary artery disease. 4.Hypertension. Plan: We will go ahead and continue current antibiotics. The patient is currently on azithromycin a nd Zosyn. We will continue those antibiotics. The patient will get Lantus insulin. Instead of 30 u nits, we will change it to 40 units, which is his usual dose at home, and already had informed [facility] staff regarding that. We will expect his blood sugar to improve once he gets back on his Lantus in [facility]. I believe he probably may not have received that long-acting insulin yesterday because he end ed up in the emergency room dice person. The patient has experienced acute respiratory failure thi s morning with hypoxia due to his underlying pneumonia problem, and we will continue BiPAP support at this point. Physical Therapy to help ambulate the patient, and I will see him tomorrow for followup. AUNG/MODL Voice ID: [id number] Report ID: [id number]
[2019-05-30 14:48] LABS: Potassium 4.6 mmol/L (3.5-5.1)
[2019-05-30] MEDS ORDERED: INSULIN -REGULAR HUMAN 100 UNIT in NA CHLORIDE 0.9% 100 ML IV SCH (18:50)
[2019-05-30 19:09] LABS: BUN Blood Urea Nitrogen 37 mg/dL (7-18); Bicarbonate 24 mmol/L (21-32); Sodium Level 138 mmol/L (136-145)
[2019-05-30 19:14] LABS: Glucose Level 437 mg/dL (74-106)
[2019-05-30] MEDS: ATORVASTATIN 40 MG TAB PO SCH (21:53)
[2019-05-31] MEDS: PIPER/TAZO/NS 3.375gm 3.375 GM/100 ML BAG IVPB SCH ×5 (00:59→23:59)
[2019-05-31 05:04] LABS: Absolute Lymphocytes (CBC) 1.5 K/uL (0.7-4.9); Basophils % 0.7 % (0-1.3); Eosinophils % 1.5 % (0-4.4); Hematocrit 30.2 % (39.6-49.0); Lymphocytes % 11.3 % (15.3-44.8); Monocytes % 8.9 % (3.3-12.3); RBC Red Blood Cell Count 3.36 M/uL (4.33-5.43)
[2019-05-31 05:26] LABS: Magnesium 2.2 mg/dL (1.8-2.4); Potassium 3.5 mmol/L (3.5-5.1)
[2019-05-31] MEDS: LEVOTHYROXINE SOD 0.1 MG TAB PO SCH (05:47)
[2019-05-31] MEDS: METOPROLOL XL 50 MG TAB PO SCH ×2 (05:48→17:14)
[2019-05-31] MEDS: LEVOTHYROXINE SOD 0.088 MG TAB PO SCH (06:15)
[2019-05-31] MEDS: INSULIN GLARGINE 100 UNITS/ML SQ SCH (08:17)
[2019-05-31] MEDS: FOLIC ACID 1 MG TABLET PO SCH (08:19)
[2019-05-31] MEDS: ASPIRIN EC 81 MG TAB PO SCH (08:19)
[2019-05-31] MEDS: TAMSULOSIN 0.4 MG SR CAP PO SCH (08:19)
[2019-05-31] MEDS: CLOPIDOGREL 75 MG TABLET PO SCH (08:19)
[2019-05-31] MEDS: ISOSORBIDE MONO SR 60 MG TAB PO SCH (08:20)
[2019-05-31] MEDS: HEPARIN 5000 UNIT/ML 1 ML VIAL SQ SCH ×2 (08:20→20:20)
[2019-05-31] MEDS: AZITHROMYCIN IV 250 MG in NA CHLORIDE 0.9% 250 ML IVPB SCH (08:40)
[2019-05-31] MEDS ORDERED: D50W 25 GM/50 ML SYRINGE IV PRN ×2 (12:16→16:19)
[2019-05-31] MEDS ORDERED: GLUCAGON 1 MG/VIAL IM PRN ×2 (12:16→16:19)
[2019-05-31] MEDS ORDERED: INSULIN -REGULAR HUMAN 50 UNIT/0.5 ML ML SQ ONE (12:17)
[2019-05-31] MEDS: INSULIN -REGULAR HUMAN 50 UNIT/0.5 ML ML SQ SCH (17:14)
[2019-05-31] MEDS: ATORVASTATIN 40 MG TAB PO SCH (20:20)
--- NOTE | 2019-06-01 02:16 | PN ---
Date of Progress Note: 05/31/2019 Subjective: The patient was seen this morning for followup. He was in ICU. Last night, we transfer red him to ICU yesterday evening because we were not able to control his blood sugar. The patient re ceived multiple doses of IV insulin on the medical floor and his sugar was still remaining higher bob n 500 and he was not on any steroid therapy, so decision was made to transfer him to ICU for IV insul in drip. After he arrived in ICU, we did a chem 7 with serum acetone level, which was negative, bica rb was normal, so there was no evidence of diabetic ketoacidosis. Overnight, his glucose has come un tevin better control and he has not received any IV insulin today. No new complaints or problems repor wesly this morning. Objective: Vital Signs: Reviewed. HEENT: Unremarkable. Lungs: Clear to auscultation. Heart: Sounds normal. Abdomen: Soft. Bowel sounds normal. No guarding, rigidity, tenderness, distention. Extremities: Trace leg edema. Laboratory Data: White count 13.1, hemoglobin 9.7, platelets 184. Sodium 143, potassium 3.5, chlori de 109, bicarb 28, BUN 38, creatinine 2.21, glucose 100. Impression: 1.Pneumonia, likely aspiration pneumonia. 2.Uncontrolled type 2 diabetes mellitus, insulin dependent. 3.Chronic kidney disease stage 4. 4.Coronary artery disease. 5.Hypertension. 6.Generalized weakness. 7.Hypothyroidism. Plan: We will go ahead and transfer the patient out of ICU to regular room. Fingerstick blood sugar readings reviewed. The patient has not required any IV insulin today. We will continue his long-ac ting insulin Lantus 40 units subcutaneous injection in the morning, which he received today and slidi ng scale insulin per order. Consult physical therapy. Continue current IV antibiotics. Repeat ches t x-ray tomorrow. See copy of transfer order for more details. AUNG/MODL Voice ID: [id number] Report ID: [id number]
[2019-06-01] MEDS: LEVOTHYROXINE SOD 0.088 MG TAB PO SCH (05:51)
[2019-06-01] MEDS: PIPER/TAZO/NS 3.375gm 3.375 GM/100 ML BAG IVPB SCH ×4 (05:51→23:28)
[2019-06-01] MEDS: LEVOTHYROXINE SOD 0.1 MG TAB PO SCH (05:51)
[2019-06-01] MEDS: METOPROLOL XL 50 MG TAB PO SCH ×2 (05:52→17:43)
[2019-06-01] MEDS: INSULIN -REGULAR HUMAN 50 UNIT/0.5 ML ML SQ SCH ×4 (07:30→16:30)
[2019-06-01] MEDS: ASPIRIN EC 81 MG TAB PO SCH (08:01)
[2019-06-01] MEDS: FOLIC ACID 1 MG TABLET PO SCH (08:01)
[2019-06-01] MEDS: CLOPIDOGREL 75 MG TABLET PO SCH (08:01)
[2019-06-01] MEDS: ISOSORBIDE MONO SR 60 MG TAB PO SCH (08:01)
[2019-06-01] MEDS: TAMSULOSIN 0.4 MG SR CAP PO SCH (08:02)
--- NOTE | 2019-06-01 08:24 | RAD REPORT ---
EXAM DESCRIPTION: RAD - Chest Single View - 06/01/2019 5:49 am CLINICAL HISTORY: pneumonia Chest pain. COMPARISON: Chest Single View dated 05/29/2019; Chest Pa And Lat (2 Views) dated 05/03/2019; Chest Sing le View dated 04/06/2019; Chest Single View dated 03/30/2019 FINDINGS: Portable technique limits examination quality. Significant airspace opacities are present in the left lung most compatible with pneumonia. Right andie g shows improvement in lung aeration since the comparative study. The heart is mildly enlarged in siz e. No displaced fractures. IMPRESSION: Moderate worsening of left lung aeration compatible with pneumonia.
[2019-06-01] MEDS: ACETAMINOPHEN 500 MG TAB PO PRN ×2 (08:37→23:28)
[2019-06-01] MEDS: INSULIN GLARGINE 100 UNITS/ML SQ SCH (08:38)
[2019-06-01] MEDS: HEPARIN 5000 UNIT/ML 1 ML VIAL SQ SCH ×2 (08:39→21:34)
[2019-06-01] MEDS: AZITHROMYCIN IV 250 MG in NA CHLORIDE 0.9% 250 ML IVPB SCH (09:28)
--- NOTE | 2019-06-01 10:55 | EKG ---
Test Date: 2019-06-01 Test Time: 08:03:28 Visual Arts Teacher: NAOMI MEASUREMENT RESULTS: Intervals: Rate: 88 AL: 222 QRSD: 104 QT: 358 QTc: 433 [place]: P: 81 AL: 222 QRS: 58 T: -60 INTERPRETIVE STATEMENTS: Sinus rhythm with 1st degree AV block with premature supraventricular complexes Cannot rule out Inferior infarct, age undetermined ST & T wave abnormality, consider lateral ischemia Abnormal ECG Compared to ECG 05/29/2019 08:41:27 Atrial premature complex(es) now present Myocardial infarct finding still present ST (T wave) deviation still present Possible ischemia still present Electronically Signed On 06-01-19 10:54:32 CDT by Christophe Mcfadden
--- NOTE | 2019-06-01 11:52 | PN ---
Date of Progress Note: 06/01/2019 Subjective: The patient was seen this morning for followup. No new complaints or problems reported by him. He was sleeping, easily arousable, not in any distress. Objective: Vital Signs: Reviewed. HEENT: Examination unremarkable. Lungs: Clear to auscultation. Heart: Sounds normal. Abdomen: Soft. Bowel sounds normal. No guarding, rigidity, tenderness, or distention. Extremities: Very trace leg edema. Laboratory Data: Fingerstick blood sugar readings reviewed. Chest x-ray from this morning pending. Impression: 1.Pneumonia, likely aspiration pneumonia. 2.Diabetes mellitus, type 2, uncontrolled, brittle, insulin dependent. 3.Coronary artery disease. 4.Hypertension. 5.Chronic kidney disease. Plan: We will go ahead and continue current medications. Continue current antibiotic. We will repe at blood work tomorrow. Physical therapy to help ambulate the patient. We will continue current francheska betes management. I will see him tomorrow for followup. AUNG/MODL Voice ID: [id number] Report ID: [id number]
[2019-06-01] MEDS: ATORVASTATIN 40 MG TAB PO SCH (21:33)
[2019-06-02] MEDS: ACETAMINOPHEN 500 MG TAB PO PRN (04:51)
[2019-06-02] MEDS: PIPER/TAZO/NS 3.375gm 3.375 GM/100 ML BAG IVPB SCH ×3 (05:50→17:04)
[2019-06-02] MEDS: LEVOTHYROXINE SOD 0.1 MG TAB PO SCH (05:51)
[2019-06-02] MEDS: METOPROLOL XL 50 MG TAB PO SCH ×2 (05:51→17:05)
[2019-06-02] MEDS: LEVOTHYROXINE SOD 0.088 MG TAB PO SCH (05:51)
[2019-06-02 06:31] LABS: Absolute Lymphocytes (CBC) 0.8 K/uL (0.7-4.9); Basophils % 0.5 % (0-1.3); Eosinophils % 1.9 % (0-4.4); Hematocrit 31.5 % (39.6-49.0); Lymphocytes % 10.6 % (15.3-44.8); MPV 11.3 fL (7.6-11.3); Monocytes % 10.5 % (3.3-12.3)
[2019-06-02 06:34] LABS: Albumin 2.6 g/dL (3.4-5.0); Bilirubin Total 0.5 mg/dL (0.2-1.0); Magnesium 2.1 mg/dL (1.8-2.4); Potassium 3.3 mmol/L (3.5-5.1); Protein, Total 6.5 g/dL (6.4-8.2)
[2019-06-02] MEDS: INSULIN -REGULAR HUMAN 50 UNIT/0.5 ML ML SQ SCH ×3 (07:30→17:03)
[2019-06-02] MEDS: CLOPIDOGREL 75 MG TABLET PO SCH (08:29)
[2019-06-02] MEDS: AZITHROMYCIN IV 250 MG in NA CHLORIDE 0.9% 250 ML IVPB SCH (08:29)
[2019-06-02] MEDS: ISOSORBIDE MONO SR 60 MG TAB PO SCH (08:30)
[2019-06-02] MEDS: FOLIC ACID 1 MG TABLET PO SCH (08:30)
[2019-06-02] MEDS: TAMSULOSIN 0.4 MG SR CAP PO SCH (08:30)
[2019-06-02] MEDS: INSULIN GLARGINE 100 UNITS/ML SQ SCH (08:30)
[2019-06-02] MEDS: ASPIRIN EC 81 MG TAB PO SCH (08:30)
[2019-06-02] MEDS: HEPARIN 5000 UNIT/ML 1 ML VIAL SQ SCH ×2 (08:31→21:45)
[2019-06-02] MEDS: ATORVASTATIN 40 MG TAB PO SCH (21:45)
[2019-06-03] MEDS: PIPER/TAZO/NS 3.375gm 3.375 GM/100 ML BAG IVPB SCH ×4 (00:40→17:06)
--- NOTE | 2019-06-03 01:58 | PN ---
Date of Progress Note: 06/02/2019 Subjective: The patient was seen this morning for followup. No new complaints or problems reported by him. Lying in bed, not in distress. Objective: VITAL SIGNS: Reviewed. HEENT: Unremarkable. LUNGS: Clear to auscultation. HEART: Sounds normal. ABDOMEN: Soft, bowel sounds normal. No guarding, rigidity, tenderness, or distention. EXTREMITIES: Trace leg edema. Laboratory Data: White count 7.9, hemoglobin 10.2, platelets 192. Sodium 144, potassium 3.3, chlori de 109, bicarb 27, BUN 25, creatinine 1.82, glucose 91. Impression: 1.Pneumonia. 2.Diabetes mellitus, uncontrolled. 3.Chronic kidney disease, stage 4. 4.Coronary artery disease. 5.Hypertension. Plan: We will continue current medications. Physical therapy to continue to work with the patient t o ambulate. Continue IV antibiotic and we will see him tomorrow for followup. AUNG/MODL Voice ID: [id number] Report ID: [id number]
[2019-06-03] MEDS: METOPROLOL XL 50 MG TAB PO SCH ×2 (06:30→17:05)
[2019-06-03] MEDS: LEVOTHYROXINE SOD 0.1 MG TAB PO SCH (06:30)
[2019-06-03] MEDS: LEVOTHYROXINE SOD 0.088 MG TAB PO SCH (06:31)
[2019-06-03] MEDS: INSULIN -REGULAR HUMAN 50 UNIT/0.5 ML ML SQ SCH ×3 (07:30→17:05)
[2019-06-03] MEDS: TAMSULOSIN 0.4 MG SR CAP PO SCH (09:16)
[2019-06-03] MEDS: AZITHROMYCIN IV 250 MG in NA CHLORIDE 0.9% 250 ML IVPB SCH (09:16)
[2019-06-03] MEDS: FOLIC ACID 1 MG TABLET PO SCH (09:16)
[2019-06-03] MEDS: CLOPIDOGREL 75 MG TABLET PO SCH (09:16)
[2019-06-03] MEDS: ASPIRIN EC 81 MG TAB PO SCH (09:16)
[2019-06-03] MEDS: HEPARIN 5000 UNIT/ML 1 ML VIAL SQ SCH ×2 (09:17→20:52)
[2019-06-03] MEDS: ISOSORBIDE MONO SR 60 MG TAB PO SCH (09:17)
--- NOTE | 2019-06-03 09:22 | RAD REPORT ---
EXAM DESCRIPTION: Travis Single View06/03/2019 8:57 am CLINICAL HISTORY: Chest pain COMPARISON: June 01, 2019 FINDINGS: Improvement in left and no significant change in right pulmonary opacities. Heart remains enlarged. IMPRESSION: Improvement in the left and no significant change in the right pulmonary opacities prob ably represent pneumonia
[2019-06-03] MEDS: INSULIN GLARGINE 100 UNITS/ML SQ SCH (10:48)
--- NOTE | 2019-06-03 13:42 | PN ---
Date of Progress Note: 06/03/2019 Subjective: The patient was seen this morning for followup. He was ambulating well today with physi thuan therapy. He feels better today than last few days. Objective: Vital Signs: Reviewed. HEENT: Unremarkable. Lungs: Clear to auscultation. Heart: Sounds normal. Abdomen: Soft. Bowel sounds normal. No guarding, rigidity, tenderness, or distention. Extremities: No leg edema. Laboratory Data: Fingerstick blood sugar readings reviewed. Chest x-ray done today shows improvemen t in pneumonia. Impression: 1.Pneumonia. 2.Diabetes mellitus, uncontrolled. 3.Hypertension. 4.Chronic kidney disease, stage 4. 5.Generalized weakness. Plan: We will go ahead and have Physical Therapy continue to work with him. We will continue curren t antibiotic. He is responding well to the antibiotics. Possible discharge to go home in next 1 or 2 days depending on his condition. Details and plan of treatment discussed with him. The nurse repo rted this morning, and I have asked the nursing staff to make sure that the patient gets his bedtime snack the way it is ordered. Otherwise, he will have information developer hypoglycemia problem. AUNG/MODL Voice ID: [id number] Report ID: [id number]
[2019-06-03] MEDS: ATORVASTATIN 40 MG TAB PO SCH (20:52)
[2019-06-04] MEDS: PIPER/TAZO/NS 3.375gm 3.375 GM/100 ML BAG IVPB SCH ×4 (00:12→17:24)
[2019-06-04] MEDS: LEVOTHYROXINE SOD 0.088 MG TAB PO SCH (05:33)
[2019-06-04] MEDS: LEVOTHYROXINE SOD 0.1 MG TAB PO SCH (05:33)
[2019-06-04] MEDS: METOPROLOL XL 50 MG TAB PO SCH ×2 (05:33→17:24)
[2019-06-04] MEDS: INSULIN -REGULAR HUMAN 50 UNIT/0.5 ML ML SQ SCH ×3 (07:30→16:14)
[2019-06-04] MEDS: INSULIN GLARGINE 100 UNITS/ML SQ SCH (08:04)
[2019-06-04] MEDS: AZITHROMYCIN IV 250 MG in NA CHLORIDE 0.9% 250 ML IVPB SCH (08:04)
[2019-06-04] MEDS: TAMSULOSIN 0.4 MG SR CAP PO SCH (08:05)
[2019-06-04] MEDS: ASPIRIN EC 81 MG TAB PO SCH (08:05)
[2019-06-04] MEDS: CLOPIDOGREL 75 MG TABLET PO SCH (08:05)
[2019-06-04] MEDS: FOLIC ACID 1 MG TABLET PO SCH (08:05)
[2019-06-04] MEDS: HEPARIN 5000 UNIT/ML 1 ML VIAL SQ SCH ×2 (08:06→20:05)
[2019-06-04] MEDS: ISOSORBIDE MONO SR 60 MG TAB PO SCH (08:08)
--- NOTE | 2019-06-04 14:04 | PN ---
Date of Progress Note: 06/04/2019 Subjective: The patient was seen this morning for followup. No new complaints or problems reported by him. He was sitting at bedside in the chair, awake, alert, answering questions appropriately. Cintia gayng better in last 2 days than before. Objective: Vital Signs: Reviewed. HEENT Examination: Unremarkable. Lungs: Clear to auscultation except minimum rales in right lung base. Not in any respiratory distre ss. Heart: Sounds normal. Abdomen: Soft. Bowel sounds normal. No guarding, rigidity, tenderness, distention. Extremities: Trace leg edema. Impression: 1.Pneumonia. 2.Diabetes mellitus, uncontrolled. 3.Hypertension. 4.Coronary artery disease. Plan: We will continue current antibiotic, physical therapy to help ambulate the patient, and we carol l continue current insulin for diabetes management. 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 AUNG/MODL Voice ID: [id number] Report ID: [id number]
[2019-06-04] MEDS: ATORVASTATIN 40 MG TAB PO SCH (20:04)
[2019-06-05] MEDS: PIPER/TAZO/NS 3.375gm 3.375 GM/100 ML BAG IVPB SCH ×3 (01:05→11:51)
[2019-06-05] MEDS: LEVOTHYROXINE SOD 0.1 MG TAB PO SCH (05:58)
[2019-06-05] MEDS: LEVOTHYROXINE SOD 0.088 MG TAB PO SCH (05:58)
[2019-06-05] MEDS: METOPROLOL XL 50 MG TAB PO SCH (05:58)
[2019-06-05 06:04] LABS: Absolute Lymphocytes (CBC) 1.2 K/uL (0.7-4.9); Basophils % 0.8 % (0-1.3); Eosinophils % 3.6 % (0-4.4); Hematocrit 30.7 % (39.6-49.0); Lymphocytes % 17.7 % (15.3-44.8); Monocytes % 10.7 % (3.3-12.3); RBC Red Blood Cell Count 3.38 M/uL (4.33-5.43)
[2019-06-05 06:23] LABS: Magnesium 2.2 mg/dL (1.8-2.4); Potassium 3.4 mmol/L (3.5-5.1)
[2019-06-05] MEDS: INSULIN -REGULAR HUMAN 50 UNIT/0.5 ML ML SQ SCH ×2 (07:30→12:34)
[2019-06-05] MEDS ORDERED: POTASSIUM CL SA 10 MEQ TAB PO ONE (07:32)
[2019-06-05 08:31] VITALS: TEMP 97.3
[2019-06-05] MEDS: TAMSULOSIN 0.4 MG SR CAP PO SCH (09:31)
[2019-06-05] MEDS: ASPIRIN EC 81 MG TAB PO SCH (09:31)
[2019-06-05] MEDS: CLOPIDOGREL 75 MG TABLET PO SCH (09:31)
[2019-06-05] MEDS: FOLIC ACID 1 MG TABLET PO SCH (09:31)
[2019-06-05] MEDS: HEPARIN 5000 UNIT/ML 1 ML VIAL SQ SCH (09:31)
[2019-06-05] MEDS: INSULIN GLARGINE 100 UNITS/ML SQ SCH (09:33)
[2019-06-05] MEDS: ISOSORBIDE MONO SR 60 MG TAB PO SCH (09:38)
--- NOTE | 2019-06-05 10:08 | PN ---
Date of Progress Note: 06/05/2019 Subjective: The patient was seen this morning for followup. No new complaints or problems reported. Objective: General: He was sitting at bedside, not in distress. Vital Signs: Reviewed. HEENT: Unremarkable. Lungs: Clear to auscultation except minimum basal rales on the left side. Heart: Sounds normal. Abdomen: Soft, bowel sounds normal. No guarding, rigidity, tenderness, or distention. Extremities: Bilateral trace leg edema unchanged. Laboratory Data: White count 7, hemoglobin 10.1, platelets 249. Sodium 145, potassium 3.4, chloride 111, bicarb 27, BUN 18, creatinine 1.81, glucose 38, magnesium 2.2. Fingerstick blood sugar reading s reviewed. Impression: 1.Pneumonia. 2.Hypokalemia. 3.Diabetes mellitus, uncontrolled. 4.Coronary artery disease. Plan: We will continue current medications. Continue antibiotics, and upon further questioning, amy tay reports that he did not eat bedtime snack. Nurse on duty does not know whether patient had snac k or not, but they will look into it and let me know after talking to the night nurse. 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 Possible discharge to go home today or tomorrow depending on his condition, and I will communicate with family which is patient's daughter. AUNG/AGUILA Voice ID: [id number] Report ID: [id number]
[2019-06-05] MEDS: AZITHROMYCIN IV 250 MG in NA CHLORIDE 0.9% 250 ML IVPB SCH (10:47)
[2019-06-05 12:24] VITALS: O2SAT 97
[2019-06-05 12:27] VITALS: BP 182/89
--- NOTE | 2019-06-09 21:15 | DS ---
Date of Discharge: 06/05/2019 Disposition: Discharged to go home. Physical Examination: See copy of today's progress note for details. Discharge Medications And Instructions: 1.Continue prior home medications. 2.Take Augmentin 500 mg twice a day for 1 week. 3.Follow up at my office per scheduled appointment. Hospital Course: This is an 89-year-old pleasant male patient who was admitted to the hospital after he came into emergency room with complaints of shortness of breath. Please see dictated H and P for more information. The patient was evaluated in the ER, admitted to the hospital with pneumonia. Hi s blood culture remained negative when he came into emergency room. White count was 12.3, day after admission white count went up to 15.2, with appropriate antibiotics white count came down to normal. Last white count on the day of discharge was 7, hemoglobin 10.1, platelets 249. Last chemistry; sod ium 145, potassium 3.4, chloride 111, bicarb 27, BUN 18, creatinine 1.81, glucose 38. Highest creati nine during this hospitalization was 2.44. After the patient was admitted to the hospital, he was gi sagar antibiotic. Venous Doppler was negative for DVT. Physical therapy was consulted and during this hospitalization his condition improved. He started to ambulate well with physical therapy. Shortne ss of breath improved. Chest x-ray was repeated which also showed improvement in pneumonia. Potassi um was low, which was replaced as per electrolyte replacement protocol. Details were discussed with the patient's daughter and the patient was discharged to go home in stable condition with above-menti oned discharge medication and instructions. Final Diagnoses: 1.Pneumonia, community-acquired. 2.Hypokalemia. 3.Chronic kidney disease stage 4. 4.Anemia due to chronic kidney disease. 5.Diabetes mellitus, type 2, uncontrolled. 6.Coronary artery disease. 7.Paroxysmal atrial fibrillation. 8.Hypertension. 9.Hyperlipidemia. 10.Hypothyroidism. 11.Generalized weakness. 12.Debility. AUNG/MODL Voice ID: [id number] Report ID: [id number]
== END 2019-06-05 13:23 | disposition home or self-care (01) | DRG 193 ==
LOC: ER 08:03 → ERHOLD 10:17 → 4TH 13:22 → 3RD-ICU 05-30 18:25 → 2ND 05-31 20:49 → 4TH 06-04 21:58
PROVIDERS: ADMIT Internal Medicine; ATTEND Internal Medicine
PROC: 5A09357 Assistance with Respiratory Ventilation, Less than 24 Consecutive Hours, Continuous Positive Airway Pressure (ICD-10-PCS; principal; 2019-06-01)
DX: J18.9 Pneumonia, unspecified organism (principal); J96.01 Acute respiratory failure with hypoxia; N18.4 Chronic kidney disease, stage 4 (severe); I13.10 Hypertensive heart and chronic kidney disease without heart failure, with stage 1 through stage 4 chronic kidney disease, or unspecified chronic kidney disease; E11.22 Type 2 diabetes mellitus with diabetic chronic kidney disease; E11.65 Type 2 diabetes mellitus with hyperglycemia; D63.1 Anemia in chronic kidney disease; I25.10 Atherosclerotic heart disease of native coronary artery without angina pectoris; I48.0 Paroxysmal atrial fibrillation; E78.5 Hyperlipidemia, unspecified; E03.9 Hypothyroidism, unspecified; R53.1 Weakness; R53.81 Other malaise; E87.6 Hypokalemia
CPT/HCPCS: 36415; 71045; 80048; 80053; 82010; 82947; 82962; 83605; 83735; 83880; 84145; 84484; 85025; 85610; 85730; 87040; 93005; 93970; 93971; 94640; 94660; 94760; 96365; 96367; 96368; 96372; 97116; 97163; 97530; 97542; 99285; J0456; J0696; J1644; J2543

== ENCOUNTER 2019-06-08 16:28 | Inpatient (IN) | payer OTHER ==
[2019-06-08 17:16] LABS: Absolute Lymphocytes (CBC) 1.3 K/uL (0.7-4.9); Basophils % 0.9 % (0-1.3); Eosinophils % 4.5 % (0-4.4); Hematocrit 32.2 % (39.6-49.0); Lymphocytes % 15.4 % (15.3-44.8); Monocytes % 11.9 % (3.3-12.3); Protime INR 1.04; RBC Red Blood Cell Count 3.54 M/uL (4.33-5.43)
[2019-06-08 17:43] LABS: Bilirubin Direct 0.1 mg/dL (0-0.2); Bilirubin Total 0.3 mg/dL (0.2-1.0); Magnesium 2.1 mg/dL (1.8-2.4); Potassium 3.8 mmol/L (3.5-5.1); Protein, Total 6.9 g/dL (6.4-8.2); Troponin (Emerg Dept Use Only) 0.05 ng/mL (0.0-0.045)
[2019-06-08] MEDS ORDERED: ACETAMINOPHEN 500 MG TAB PO PRN ×2 (17:55→22:08)
[2019-06-08] MEDS ORDERED: IPRATROPIUM BROM 0.5MG/2.5ML NEB PRN (17:55)
[2019-06-08] MEDS ORDERED: ONDANSETRON 4 MG/2 ML VIAL IV PRN ×2 (17:55→22:32)
[2019-06-08] MEDS ORDERED: MORPHINE 2 MG/ML SYR IV PRN ×2 (17:55→22:08)
[2019-06-08] MEDS ORDERED: ALBUTEROL 2.5 MG/3 ML NEB SOL NEB PRN (17:55)
[2019-06-08] MEDS ORDERED: GLUCAGON 1 MG/VIAL IM PRN ×2 (18:00→22:08)
[2019-06-08] MEDS ORDERED: D50W 25 GM/50 ML SYRINGE IV PRN ×2 (18:00→22:08)
--- NOTE | 2019-06-08 18:09 | ER ---
Nurse's Notes [facility] Name: Abner Perea Age: 89 yrs Sex: Male : 1930 Arrival Date: 06/08/2019 Time: 16:31 Bed 8 Private MD: Diagnosis: Unspecified combined systolic (congestive) and diastolic (congestive) heart failure;Essential (primary) hypertension;Unspecified kidney failure;Pleural effusion in conditions classified elsewhere Presentation: 06/08 16:32 Presenting complaint: EMS states: COMPLAINING OF SOB. NORMALLY ON OXYGEN AT HOME. SOB rv STARTED LAST NIGHT. DAUGHTER GAVE HIM A HCTZ TODAY. NOTICED EDEMA ON PERIPHERAL EXTREMITIES. OXYGEN SAT AT 70s % ON ROOM AIR. Transition of care: patient was not received from another setting of care. Onset of symptoms was June 07, 2019 at 20:00. Risk Assessment: Do you want to hurt yourself or someone else? Patient reports no desire to harm self or others. Initial Sepsis Screen: Does the patient meet any 2 criteria? No. Patient's initial sepsis screen is negative. Does the patient have a suspected source of infection? No. Patient's initial sepsis screen is negative. Care prior to arrival: None. 16:32 Method Of Arrival: EMS: [facility] rv 16:32 Acuity: GEORGE 3 rv Triage Assessment: 16:40 General: Appears in no apparent distress. uncomfortable, Behavior is calm, cooperative. rv Pain: Denies pain. Historical: - Allergies: 16:39 No Known Allergies; rv - Home Meds: 16:39 aspirin 81 mg Oral TbEC 1 tab once daily [Active]; bumetanide 2 mg Oral tab 1.5 tab 2 rv times per day [Active]; Flomax 0.4 mg Oral cp24 1 cap once daily [Active]; folic acid 1 mg Oral tab 1 tab once daily [Active]; gabapentin 100 mg Oral cap 1 caps 3 times per day [Active]; Isosorbide 30mg Daily 60 mg daily [Active]; Levemir 40 units subcutaneous soln daily [Active]; levothyroxine 88 mcg tab 1 tab once daily [Active]; levothyroxine 200 mcg tab 1 tab once daily [Active]; metoprolol tartrate 50 mg Oral tab 1 tab 2 times per day [Active]; multivitamin Oral [Active]; Novolog 100 unit/mL Sub-Q soln three times a day [Active]; Plavix 75 mg Oral tab 1 tab once daily [Active]; simvastatin 80 mg Oral tab daily [Active]; tamsulosin 0.4 mg Oral cp24 1 cap once daily [Active]; - PMHx: 16:39 CVA; Diabetes - IDDM; Hypertension; Hypothyroidism; Myocardial infarction; rv - PSHx: 16:39 None; rv - Immunization history:: Adult Immunizations up to date. - Social history:: Smoking status: Patient/guardian denies using tobacco, never smoked. - Ebola Screening: : No symptoms or risks identified at this time. - Family history:: not pertinent. Screenin:40 Abuse screen: Denies threats or abuse. Denies injuries from another. Nutritional rv screening: No deficits noted. Tuberculosis screening: No symptoms or risk factors identified. Fall Risk None identified. Assessment: 16:41 Reassessment: SEE TRIAGE NOTES. rv 19:34 General: Appears in no apparent distress. Behavior is calm, cooperative. Neuro: Level bb of Consciousness is awake, alert, obeys commands, Oriented to person, place, time, situation. Cardiovascular: Heart tones S1 S2 present Capillary refill < 3 seconds Patient's skin is warm and dry. Pulses are palpable in right radial artery and left radial artery Edema is 4+ to left leg and right leg. Respiratory: Airway is patent Respiratory effort is even, unlabored, Respiratory pattern is regular, Breath sounds are clear bilaterally. GI: Abdomen is non-distended, Abd is soft and non tender X 4 quads. Derm: Skin is fragile, is thin, Skin is dry, Skin temperature is warm Bruising that is dark purple. Musculoskeletal: Circulation, motion, and sensation intact. 19:47 Reassessment: report given to Omer Baires RN for room 413. bb Vital Signs: 16:34 BP 186 / 101; Pulse 62; Resp 19; Temp 98(O); Pulse Ox 100% on 3 lpm NC; Weight 106.59 rv kg; Height 5 ft. 11 in. (180.34 cm); Pain 0/10; 19:33 BP 173 / 75; Pulse 66; Resp 14; Temp 97.5(O); Pulse Ox 100% on 3 lpm NC; bb 16:34 Body Mass Index 32.77 (106.59 kg, 180.34 cm) rv ED Course: 16:31 Patient arrived in ED. ss 16:32 Jaiden Terry, RN is Primary Nurse. rv 16:34 Triage completed. rv 16:40 Patient has correct armband on for positive identification. Placed in gown. Bed in low rv position. Call light in reach. Side rails up X 1. vehicle monitor technician on. Pulse ox on. NIBP on. 16:40 Patient placed in the treatment room, on a stretcher, on pulse oximetry, Patient rv notified of wait time. 16:41 Gilberto Valera MD is Attending Physician. ted 16:42 Maintain EMS IV. Dressing intact. Good blood return noted. Site clean \T\ dry. Gauge \T\ rv site: G20 LEFT AC. 17:39 XRAY Chest (1 view) In Process Unspecified. EDMS 17:49 Nica Puga MD is Hospitalizing Provider. ted 19:47 No provider procedures requiring assistance completed. Patient admitted, IV remains in bb place. Administered Medications: 17:48 Drug: Lasix 60 mg Route: IVP; Site: left antecubital; 19:38 Follow up: Response: No adverse reaction bb 17:48 Drug: Nitro-Bid Ointment 2 % 0.5 inches Route: Transdermal; Site: anterior chest wall; 17:48 Drug: Tylenol 650 mg Route: PO; 19:38 Follow up: Response: No adverse reaction bb Point of Care Testing: Blood Glucose: 16:55 Blood Glucose: 218 mg/dL; em1 Ranges: Output: 20:07 Urine: 600ml (Voided); Total: 600ml. bb Outcome: 18:08 Decision to Hospitalize by Provider. ted 19:48 Admitted to Tele accompanied by tech, via stretcher, room 413, with oxygen, with chart, bb Report called to Omer Espino RN 19:48 Condition: stable 19:48 Instructed on the need for admit. 20:07 Patient left the ED. bb Signatures: Dispatcher [employer] EDAZ Gilberto Valera MD MD cha Ballard, Brenda, RN RN Jorge Abbott em1 Britni Coleman RN RN Alex Carr RN RN Jaiden Terry, IFTIKHAR RN rv Corrections: (The following items were deleted from the chart) 16:39 16:34 BP 186 / 101; Pulse 62bpm; Resp 19bpm; Pulse Ox 100% 3 lpm Nasal Cannula; 106.59 rv kg; Height 5 ft. 11 in.; BMI: 32.7; Pain 0/10; rv
--- NOTE | 2019-06-08 18:10 | EDPHYS ---
Physician Documentation [facility] Name: Abner Perea Age: 89 yrs Sex: Male : 1930 Arrival Date: 06/08/2019 Time: 16:31 Bed 8 Private MD: ED Physician Gilberto Valera HPI: 06/08 16:53 This 89 yrs old Male presents to ER via EMS with complaints of dyspneaand ted weakness. Historical: - Allergies: 16:39 No Known Allergies; rv - Home Meds: 16:39 aspirin 81 mg Oral TbEC 1 tab once daily [Active]; bumetanide 2 mg Oral tab 1.5 tab 2 rv times per day [Active]; Flomax 0.4 mg Oral cp24 1 cap once daily [Active]; folic acid 1 mg Oral tab 1 tab once daily [Active]; gabapentin 100 mg Oral cap 1 caps 3 times per day [Active]; Isosorbide 30mg Daily 60 mg daily [Active]; Levemir 40 units subcutaneous soln daily [Active]; levothyroxine 88 mcg tab 1 tab once daily [Active]; levothyroxine 200 mcg tab 1 tab once daily [Active]; metoprolol tartrate 50 mg Oral tab 1 tab 2 times per day [Active]; multivitamin Oral [Active]; Novolog 100 unit/mL Sub-Q soln three times a day [Active]; Plavix 75 mg Oral tab 1 tab once daily [Active]; simvastatin 80 mg Oral tab daily [Active]; tamsulosin 0.4 mg Oral cp24 1 cap once daily [Active]; - PMHx: 16:39 CVA; Diabetes - IDDM; Hypertension; Hypothyroidism; Myocardial infarction; rv - PSHx: 16:39 None; rv - Immunization history:: Adult Immunizations up to date. - Social history:: Smoking status: Patient/guardian denies using tobacco, never smoked. - Ebola Screening: : No symptoms or risks identified at this time. - Family history:: not pertinent. ROS: 16:53 Constitutional: Negative for fever, chills, and weight loss, Eyes: Negative for injury, ted pain, redness, and discharge, ENT: Negative for injury, pain, and discharge, Neck: Negative for injury, pain, and swelling, Cardiovascular: Negative for chest pain, palpitations, and edema, Abdomen/GI: Negative for abdominal pain, nausea, vomiting, diarrhea, and constipation, Back: Negative for injury and pain, : Negative for injury, bleeding, discharge, and swelling, Skin: Negative for injury, rash, and discoloration, Neuro: Negative for headache, weakness, numbness, tingling, and seizure, Psych: Negative for depression, anxiety, suicide ideation, homicidal ideation, and hallucinations, Allergy/Immunology: Negative for hives, rash, and allergies, Endocrine: Negative for neck swelling, polydipsia, polyuria, polyphagia, and marked weight changes. 16:53 Respiratory: Positive for cough, dyspnea on exertion, shortness of breath. 16:53 MS/extremity: Positive for swelling, of the right leg and left leg. Exam: 16:53 Constitutional: This is a well developed, well nourished patient who is awake, alert, ted and in no acute distress. Head/Face: Normocephalic, atraumatic. Eyes: Pupils equal round and reactive to light, extra-ocular motions intact. Lids and lashes normal. Conjunctiva and sclera are non-icteric and not injected. Cornea within normal limits. Periorbital areas with no swelling, redness, or edema. ENT: Nares patent. No nasal discharge, no septal abnormalities noted. Tympanic membranes are normal and external auditory canals are clear. Oropharynx with no redness, swelling, or masses, exudates, or evidence of obstruction, uvula midline. Mucous membranes moist. Neck: Trachea midline, no thyromegaly or masses palpated, and no cervical lymphadenopathy. Supple, full range of motion without nuchal rigidity, or vertebral point tenderness. No Meningismus. Chest/axilla: Normal chest wall appearance and motion. Nontender with no deformity. No lesions are appreciated. Cardiovascular: Regular rate and rhythm with a normal S1 and S2. No gallops, murmurs, or rubs. Normal PMI, no JVD. No pulse deficits. Abdomen/GI: Soft, non-tender, with normal bowel sounds. No distension or tympany. No guarding or rebound. No evidence of tenderness throughout. Back: No spinal tenderness. No costovertebral tenderness. Full range of motion. Male : Normal genitalia with no discharge or lesions. Skin: Warm, dry with normal turgor. Normal color with no rashes, no lesions, and no evidence of cellulitis. Psych: Awake, alert, with orientation to person, place and time. Behavior, mood, and affect are within normal limits. 16:53 Respiratory: the patient does not display signs of respiratory distress, Respirations: labored breathing, that is mild, Breath sounds: rales, that are mild, are located in both bases, decreased breath sounds, rhonchi, Respiratory rate: 22 16:53 Musculoskeletal/extremity: Extremities: noted in the right leg and left leg: swelling, Circulation is intact in all extremities. Sensation intact. Compartment Syndrome exam of affected extremity: is normal. DVT Exam: no pain, no tenderness, negative Homans' sign noted on exam, no appreciated bluish discoloration, no erythema, no increased warmth, swelling. Vital Signs: 16:34 BP 186 / 101; Pulse 62; Resp 19; Temp 98(O); Pulse Ox 100% on 3 lpm NC; Weight 106.59 rv kg; Height 5 ft. 11 in. (180.34 cm); Pain 0/10; 19:33 BP 173 / 75; Pulse 66; Resp 14; Temp 97.5(O); Pulse Ox 100% on 3 lpm NC; bb 16:34 Body Mass Index 32.77 (106.59 kg, 180.34 cm) rv MDM: 16:41 Patient medically screened. [facility] 16:58 Data reviewed: vital signs, nurses notes, lab test result(s), EKG, radiologic studies, ted plain films. 06/08 16:45 Order name: Basic Metabolic Panel; Complete Time: 17:47 [facility] 06/08 16:45 Order name: CBC with Diff; Complete Time: 17:33 [facility] 06/08 16:45 Order name: LFT's; Complete Time: 17:47 [facility] 06/08 16:45 Order name: Magnesium; Complete Time: 17:47 [facility] 06/08 16:45 Order name: NT PRO-BNP; Complete Time: 17:47 [facility] 06/08 16:45 Order name: PT-INR; Complete Time: 17:25 [facility] 06/08 16:45 Order name: Troponin (emerg Dept Use Only); Complete Time: 17:47 [facility] 06/08 16:45 Order name: XRAY Chest (1 view) [facility] 06/08 16:45 Order name: Lipase; Complete Time: 17:47 [facility] 06/08 16:59 Order name: Glucose, Ancillary Testing; Complete Time: 17:25 [facility] 06/08 18:05 Order name: Troponin I [facility] 06/08 18:05 Order name: Troponin I [facility] 06/08 18:10 Order name: Urine Dipstick--Ancillary (enter results) 06/08 18:55 Order name: Urine Dipstick-Ancillary; Complete Time: 19:08 [facility] 06/08 16:45 Order name: EKG; Complete Time: 16:46 [facility] 06/08 16:45 Order name: Cardiac monitoring; Complete Time: 16:45 [facility] 06/08 16:45 Order name: EKG - Nurse/Tech; Complete Time: 16:53 [facility] 06/08 16:45 Order name: IV Saline Lock; Complete Time: 16:45 [facility] 06/08 16:45 Order name: Labs collected and sent; Complete Time: 16:46 [facility] 06/08 16:45 Order name: O2 Per Protocol; Complete Time: 16:46 [facility] 06/08 16:45 Order name: O2 Sat Monitoring; Complete Time: 16:46 [facility] 06/08 16:45 Order name: Urine Dipstick-Ancillary (obtain specimen); Complete Time: 18:09 [facility] 06/08 16:51 Order name: Blood Glucose Level; Complete Time: 16:53 [facility] 06/08 18:05 Order name: Consistent Carb (ADA) [address] [facility] 06/08 18:05 Order name: EKG Electrocardiogram [facility] 06/08 18:05 Order name: EKG Electrocardiogram EDPA Administered Medications: 17:48 Drug: Lasix 60 mg Route: IVP; Site: left antecubital; hj 19:38 Follow up: Response: No adverse reaction bb 17:48 Drug: Nitro-Bid Ointment 2 % 0.5 inches Route: Transdermal; Site: anterior chest wall; hj 17:48 Drug: Tylenol 650 mg Route: PO; hj 19:38 Follow up: Response: No adverse reaction bb Point of Care Testing: Blood Glucose: 16:55 Blood Glucose: 218 mg/dL; em1 Ranges: Critical Glucose Levels:Adult <50 mg/dl or >400 mg/dl <40 mg/dl or >180 mg/dl Disposition: 06/08/19 18:08 Hospitalization ordered by Nica Puga for Inpatient Admission. Preliminary diagnosis are Unspecified combined systolic (congestive) and diastolic (congestive) heart failure, Essential (primary) hypertension, Unspecified kidney failure, Pleural effusion in conditions classified elsewhere. - Bed requested for Telemetry/MedSurg (Inpatient). - Status is Inpatient Admission. bb - Condition is Stable. - Problem is new. - Symptoms have improved. UTI on Admission? No Signatures: Dispatcher [employer] EDGilberto Wyman MD MD cha Ballard, Brenda, RN RN Rebeca Romero ms [place], Hill, STEPHEN PA [id number] Alex Carr, RN RN Jaiden Terry RN RN rv Corrections: (The following items were deleted from the chart) 18:20 18:08 Hospitalization Ordered by A Vivien GARCIA for Inpatient Admission. Preliminary ms diagnosis is Unspecified combined systolic (congestive) and diastolic (congestive) heart failure; Essential (primary) hypertension; Unspecified kidney failure; Pleural effusion in conditions classified elsewhere. Bed requested for Telemetry/MedSurg (Inpatient). Status is Inpatient Admission. Condition is Stable. Problem is new. Symptoms have improved. UTI on Admission? No. ted 20:07 18:20 06/08/2019 18:08 Hospitalization Ordered by A Vivien GARCIA for Inpatient Admission. bb Preliminary diagnosis is Unspecified combined systolic (congestive) and diastolic (congestive) heart failure; Essential (primary) hypertension; Unspecified kidney failure; Pleural effusion in conditions classified elsewhere. Bed requested for Telemetry/MedSurg (Inpatient). Status is Inpatient Admission. Condition is Stable. Problem is new. Symptoms have improved. UTI on Admission? No. ms
[2019-06-08] MEDS ORDERED: FUROSEMIDE 100 MG/10 ML VIAL IV ONE (18:22)
[2019-06-08] MEDS ORDERED: NITROGLYCERIN 1 GM PKT TD ONE (18:22)
[2019-06-08] MEDS ORDERED: ACETAMINOPHEN 325 MG TABLET ONE (18:22)
[2019-06-08 18:55] LABS: Urine Blood TRACE (NEG); Urine Glucose NEGATIVE (NEG); Urine Protein 2+ (NEG)
--- NOTE | 2019-06-08 19:05 | RAD REPORT ---
EXAM DESCRIPTION: RAD - Chest Single View - 06/08/2019 5:38 pm CLINICAL HISTORY: Shortness of breath COMPARISON: June 03 TECHNIQUE: AP portable chest image was obtained 1713 hour . FINDINGS: Bilateral pleural effusions are present. Lung markings are prominent. Bilateral lung base findings are improved from the prior study. Heart size is normal range. Vasculature is prominent. Tra yaakov is midline. No measurable pleural effusion and no pneumothorax. No acute bony abnormality seen. No acute aortic findings suspected. IMPRESSION: CHF/volume overload pattern is evident. Lung base pneumonia could be masked.
[2019-06-08] MEDS ORDERED: INSULIN -REGULAR HUMAN 50 UNIT/0.5 ML ML SQ SCH (21:00)
[2019-06-08] MEDS ORDERED: FAMOTIDINE 20 MG/2 ML VIAL IV SCH (21:00)
[2019-06-08] MEDS ORDERED: METOPROLOL TAR 50 MG TAB PO SCH (21:00)
[2019-06-08] MEDS ORDERED: POTASSIUM 25 MEQ EFFERV TAB PO SCH (21:00)
[2019-06-08] MEDS ORDERED: SODIUM CHLORIDE 0.9% 10ML INJ IV PRN (22:08)
[2019-06-08] MEDS: METOPROLOL TAR 50 MG TAB PO SCH (22:59)
[2019-06-09 03:51] LABS: Absolute Lymphocytes (CBC) 1.3 K/uL (0.7-4.9); Basophils % 0.8 % (0-1.3); Eosinophils % 5.5 % (0-4.4); Hematocrit 31.9 % (39.6-49.0); Lymphocytes % 15.8 % (15.3-44.8); MPV 9.8 fL (7.6-11.3); RBC Red Blood Cell Count 3.52 M/uL (4.33-5.43)
[2019-06-09] MEDS: IPRATROPIUM BROM 0.5MG/2.5ML NEB SCH ×6 (04:00→19:50)
[2019-06-09] MEDS: ALBUTEROL 2.5 MG/3 ML NEB SOL NEB SCH ×6 (04:00→19:50)
[2019-06-09 04:05] LABS: Potassium 3.7 mmol/L (3.5-5.1)
[2019-06-09 04:06] VITALS: BMI 32.8
[2019-06-09] MEDS ORDERED: PNEUMOCOCCAL VACCINE 0.5 ML IMVAC ONE (08:00)
--- NOTE | 2019-06-09 08:24 | RAD REPORT ---
EXAM DESCRIPTION: RAD - Chest Single View - 06/09/2019 5:38 am CLINICAL HISTORY: Chest Pain Chest pain. COMPARISON: Chest Single View dated 06/08/2019; Chest Single View dated 06/03/2019; Chest Single View da wesly 06/01/2019; Chest Single View dated 05/29/2019 FINDINGS: Portable technique limits examination quality. Since 06/08/2019, mild improvement is seen in lung aeration. There has been diminishment in the size of the right pleural effusion. The heart is moderately enlarged. No displaced fractures.
[2019-06-09] MEDS: INSULIN -REGULAR HUMAN 50 UNIT/0.5 ML ML SQ SCH ×4 (08:34→21:00)
[2019-06-09] MEDS: AMOX/K CLAV 500 MG TAB PO SCH ×2 (08:35→21:08)
[2019-06-09] MEDS: ISOSORBIDE MONO SR 60 MG TAB PO SCH (08:35)
[2019-06-09] MEDS: POTASSIUM 25 MEQ EFFERV TAB PO SCH ×2 (08:35→21:09)
[2019-06-09] MEDS: ASPIRIN 81 MG CHEWABLE TABLET PO SCH (08:35)
[2019-06-09] MEDS: FUROSEMIDE 40 MG/4 ML VIAL IV SCH ×2 (08:35→17:14)
[2019-06-09] MEDS: CLOPIDOGREL 75 MG TABLET PO SCH (08:36)
[2019-06-09] MEDS: METOPROLOL TAR 50 MG TAB PO SCH ×2 (08:36→21:09)
[2019-06-09] MEDS ORDERED: CLOPIDOGREL 75 MG TABLET PO SCH (09:00)
[2019-06-09] MEDS ORDERED: FAMOTIDINE 20 MG/2 ML VIAL IV SCH ×2 (09:00)
[2019-06-09] MEDS ORDERED: ISOSORBIDE MONO SR 30 MG TAB PO SCH ×2 (09:00)
[2019-06-09] MEDS ORDERED: ASPIRIN 81 MG CHEWABLE TABLET PO SCH (09:00)
[2019-06-09] MEDS ORDERED: FUROSEMIDE 40 MG/4 ML VIAL IV SCH (09:00)
--- NOTE | 2019-06-09 09:55 | EKG ---
Test Date: 2019-06-09 Test Time: 06:57:29 Coat Baster: RT-R MEASUREMENT RESULTS: Intervals: Rate: 72 AK: 236 QRSD: 100 QT: 420 QTc: 459 [place]: P: 75 AK: 236 QRS: 21 T: 49 INTERPRETIVE STATEMENTS: Sinus rhythm with 1st degree AV block with occasional premature ventricular complexes Inferior infarct, age undetermined Abnormal ECG Compared to ECG 06/08/2019 16:32:46 Ventricular premature complex(es) now present Atrial premature complex(es) no longer present Myocardial infarct finding still present Electronically Signed On 06-09-19 09:54:05 CDT by Franklin Diallo
--- NOTE | 2019-06-09 09:57 | EKG ---
Test Date: 2019-06-08 Test Time: 16:32:46 Inspector Assembly: MEGAN MEASUREMENT RESULTS: Intervals: Rate: 62 MN: 236 QRSD: 102 QT: 430 QTc: 436 [place]: P: 34 MN: 236 QRS: 9 T: 15 INTERPRETIVE STATEMENTS: Sinus rhythm with 1st degree AV block with premature atrial complexes Inferior infarct, age undetermined Cannot rule out Anterior infarct, age undetermined Abnormal ECG Compared to ECG 06/01/2019 08:03:28 ST (T wave) deviation no longer present Possible ischemia no longer present Myocardial infarct finding still present Electronically Signed On 06-09-19 09:57:01 CDT by Franklin Diallo
--- NOTE | 2019-06-09 10:13 | HP ---
Date of Admission: 06/08/2019 Chief Complaint: Shortness of breath. History Of Present Illness: This is an 89-year-old male patient who was recently admitted to the [facility] with pneumonia problem. The patient was discharged to go home on 06/05/2019. Today, the patie nt's daughter contacted me and informed me that they have decided to go on hospice care and we did ta lk on the phone and the patient's daughter wanted to use [facility] and while I was talking to her on the phone she also informed me that EMS was at the patient's house evaluating him because of shortness of breath complaint that he was having today. After the patient was evaluated by EMS, hi e was brought into emergency room. After he was evaluated, he was admitted to the hospital. I saw h im in emergency room. Denies any fever, chills, nausea, vomiting. No chest pain. Allergies: NO KNOWN ALLERGIES. Medications: List reviewed. Review of Systems: Respiratory: As mentioned above. Cardiovascular: As mentioned above. Also has bilateral leg swelling. All other systems reviewed and negative. 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 Past Surgical History: Significant for cataract surgery and tonsillectomy. Family History: Significant for hypertension, stroke, gastric cancer. Social History: Negative for smoking, alcohol use. Physical Examination: Vital Signs: Temperature 98, pulse 62, respiratory rate 19, blood pressure 186/101, oxygen saturatio n 100% on 3 L nasal cannula. Height 5 feet 11 inches, weight 235 pounds. General: Awake, alert, oriented, not in distress. HEENT: Head atraumatic, normocephalic. Conjunctivae nonerythematous. Sclerae white. Mouth, no thr ush or edema noted. Ears/Nose, no mass, lesion, discharge noted. Neck: Supple. No JVD, lymph nodes, bruit, thyromegaly noted. Lungs: Bilateral equal air entry. Presence of bilateral basal rales with diminished air entry in lo wer lung finn. Heart: Normal heart sounds, no murmur or gallop. Abdomen: Soft, bowel sounds normal. No guarding, rigidity, tenderness, mass, hepatosplenomegaly, dis tention, or bruit noted. Extremities: Bilateral grade 2 pedal edema. No calf tenderness. Skin: No rash, ulcer, cellulitis. Lymphatics: No lymph node enlargement in neck, supraclavicular, infraclavicular region. Neuro: No focal neurological deficit. Chest: Unremarkable. External Genitalia: Deferred. Rectal: Deferred. Laboratory Data: Chest x-ray shows pattern of CHF/volume overload. White count 8.5, hemoglobin 10.4 , platelets 324. INR 1.04. Sodium 141, potassium 3.8, chloride 105, bicarb 32, BUN 18, creatinine 1 .93, glucose 187. Liver function tests unremarkable. ProBNP 10453. Lipase 254. Troponin 0.05 on t he first and the second set. Urinalysis unremarkable except 2+ protein. Impression: 1.Congestive heart failure, chronic, diastolic, with acute exacerbation. 2.Chronic kidney disease, stage 4. 3.Coronary artery disease. 4.Hypertension. 5.Diabetes mellitus, uncontrolled. 6.Hyperlipidemia. 7.Anemia due to chronic kidney disease. Plan: Admit the patient to hospital for further evaluation and management of this problem. The godfrey ent is appropriate for inpatient and is expected to spend 2 midnights in hospital. We will go ahead and continue insulin sliding scale. Do not give any insulin dose at bedtime. 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 Home medicat ions will be continued per order. Advance directive was discussed. DNR order will be written in the chart. Tomorrow, we will have social staff worker assist the patient with hospice care arrangements. I d id talk to patient and he is agreeable to go home on hospice upon discharge. Possible discharge to o home day after tomorrow on hospice care and meanwhile we will provide diuretic therapy to help reso lve this acute exacerbation of congestive heart failure problem. Details of our treatment discussed with him and I did call and talk to his daughter as well. AUNG/MODL Voice ID: [id number]
[2019-06-09] MEDS ORDERED: D50W 25 GM/50 ML SYRINGE IV PRN (12:37)
[2019-06-09] MEDS ORDERED: GLUCAGON 1 MG/VIAL IM PRN (12:37)
[2019-06-09] MEDS: INSULIN GLARGINE 100 UNITS/ML SQ SCH (12:51)
[2019-06-09] MEDS ORDERED: INSULIN -REGULAR HUMAN 50 UNIT/0.5 ML ML IV ONE ×2 (13:46→14:33)
[2019-06-09] MEDS ORDERED: GLUCERNA SHAKE 237 ML CAN PO SCH (21:00)
--- NOTE | 2019-06-10 02:41 | PN ---
Date of Progress Note: 06/09/2019 Subjective: The patient was seen this morning for followup. He was lying in bed, not in distress. Vital signs reviewed. He did get bedtime snack and Glucerna last night and this morning, sugar was n ot low. Objective: Vital Signs: Reviewed. HEENT: Unremarkable. Lungs: Bilateral good equal air entry. Clear to auscultation. No rhonchi or rales. Heart: Sounds normal. Abdomen: Soft. Bowel sounds normal. No guarding, rigidity, tenderness, distention. Extremities: Bilateral leg edema slightly better today than yesterday. Laboratory Data: Reviewed. Impression: 1.Congestive heart failure, chronic, diastolic, with acute exacerbation. 2.Coronary artery disease. 3.Diabetes mellitus. 4.Hypertension. Plan: We will continue current medications. Today, the patient's blood sugar was elevated and his d iabetes is uncontrolled. He required IV insulin 2-3 times today on top of his subcutaneous insulin i njections. The patient's family, that is patient's daughter, is going to have meeting with [facility] agency today to finalize hospice care upon discharge from the hospital and possible discharge to go home tomorrow with hospice care and hospice diagnosis is coronary artery disease as well as chronic diastolic congestive heart failure. AUNG/MODL Voice ID: [id number] Report ID: [id number]
[2019-06-10] MEDS: ALBUTEROL 2.5 MG/3 ML NEB SOL NEB SCH ×4 (03:55→11:30)
[2019-06-10] MEDS: IPRATROPIUM BROM 0.5MG/2.5ML NEB SCH ×4 (03:55→11:30)
[2019-06-10] MEDS: INSULIN -REGULAR HUMAN 50 UNIT/0.5 ML ML SQ SCH ×2 (07:30→12:16)
[2019-06-10] MEDS: INSULIN GLARGINE 100 UNITS/ML SQ SCH (08:48)
[2019-06-10] MEDS: AMOX/K CLAV 500 MG TAB PO SCH (08:49)
[2019-06-10] MEDS: METOPROLOL TAR 50 MG TAB PO SCH (08:49)
[2019-06-10] MEDS: CLOPIDOGREL 75 MG TABLET PO SCH (08:49)
[2019-06-10] MEDS: ASPIRIN 81 MG CHEWABLE TABLET PO SCH (08:49)
[2019-06-10] MEDS: POTASSIUM 25 MEQ EFFERV TAB PO SCH (08:49)
[2019-06-10] MEDS: FUROSEMIDE 40 MG/4 ML VIAL IV SCH (08:50)
[2019-06-10] MEDS: ISOSORBIDE MONO SR 60 MG TAB PO SCH (08:50)
--- NOTE | 2019-06-10 10:27 | P.DS ---
Admission Date: 06/08/19 Discharge Date: 06/10/19 Primary Care Provider: Dr. Puga (I am covering for him) Disposition: HOSPICE-HOME Discharge Condition: GOOD Reason for Admission: Shortness of breath Consultations: none Procedures: Medical problem list: Acute on chronic diastolic CHF CAD Diabetes mellitus type 2 Hypertension Hyperlipidemia Hypothyroidism BPH Brief History of Present Illness: 89-year-old male presented to the hospital with shortness of breath. Patient recently hospitalized for pneumonia. He was discharged home on 2018. Thereafter patient's daughter had contacted Dr. Puga to informed him that they were planning to make arrangements for hospice care. Patient was admitted for further evaluation and treatment. Hospital Course: Patient presented with acute on chronic diastolic CHF. Patient with underlying CAD, diabetes mellitus type 2 insulin dependent, and hypertension. Patient was hospitalized due to shortness of breath. Patient stable at this time. Prior to admission family and patient was considering hospice. Hospice was discussed in detail with Dr. Puga who I am covering. Patient stable at this time. Patient to be discharged home with hospice in place. At discharge patient will continue with his current medications. Patient recently hospitalized for pneumonia. Patient is to finish antibiotic therapy-Augmentin. Hospice to further adjust medication. Vital Signs/Physical Exam: Temp Pulse Resp BP Pulse Ox 97.8 F 57 18 178/73 H 98 06/10/19 04:00 06/10/19 08:50 06/10/19 04:00 06/10/19 08:50 06/10/19 04:00 General: Alert, In no apparent distress, Cooperative HEENT: Atraumatic Neck: Supple Respiratory: Clear to auscultation bilaterally, Normal air movement Cardiovascular: Normal pulses, Regular rate/rhythm Gastrointestinal: Normal bowel sounds, Soft and benign Laboratory Data at Discharge: WBC 7.9 K/uL (4.3-10.9) 06/09/19 03:27 Hgb 10.9 g/dL (13.6-17.9) L 06/09/19 03:27 Hct 31.9 % (39.6-49.0) L 06/09/19 03:27 Plt Count 292 K/uL (152-406) 06/09/19 03:27 PT 12.2 SECONDS (9.5-12.5) 06/08/19 16:50 INR 1.04 06/08/19 16:50 Sodium 143 mmol/L (136-145) 06/09/19 03:27 Potassium 3.7 mmol/L (3.5-5.1) 06/09/19 03:27 BUN 18 mg/dL (7-18) 06/09/19 03:27 Creatinine 1.83 mg/dL (0.55-1.3) H 06/09/19 03:27 Glucose 450 mg/dL (74-106) H* 06/09/19 15:02 Magnesium 2.1 mg/dL (1.8-2.4) 06/08/19 16:50 Total Bilirubin 0.3 mg/dL (0.2-1.0) 06/08/19 16:50 AST 24 U/L (15-37) 06/08/19 16:50 ALT 30 U/L (12-78) 06/08/19 16:50 Alkaline Phosphatase 82 U/L (45-117) 06/08/19 16:50 Troponin I 0.05 ng/mL (0.0-0.045) H 06/09/19 03:27 Lipase 254 U/L (73-393) 06/08/19 16:50 Home Medications: Amoxicillin/Potassium Clav [Augmentin 500-125 Tablet] 1 tab PO BID 06/10/19 Aspirin Chewable [Aspirin Chewable*] 81 mg PO DAILY 06/10/19 Clopidogrel Bisulfate [Plavix*] 75 mg PO DAILY 06/10/19 Gabapentin [Neurontin*] 100 mg PO BID 06/10/19 Insulin Aspart [Novolog Flexpen] See Protocol SQ ACHS 06/10/19 Insulin Detemir [Levemir] 30 units SQ ACB 06/10/19 Isosorbide Mononitrate [Isosorbide Mononitrate ER] 60 mg PO DAILY 06/10/19 Levothyroxine Sodium [Synthroid] 200 mcg PO DAILY 06/10/19 Metoprolol Succinate [Toprol Xl*] 50 mg PO BID 06/10/19 Simvastatin [Zocor] 80 mg PO BEDTIME 06/10/19 Tamsulosin [Flomax*] 0.4 mg PO DAILY 06/10/19 Patient Discharge Instructions: 1. Patient will be discharged home with hospice in place. 2. Patient to continue with current medications. 3. Patient recently hospitalized for pneumonia. He is to finish antibiotic therapy as directed. 4. Hospice to continue to further monitor and adjust medication. Diet: AHA Activity: Fall precautions Followup: Jamaica Beckham MD [ACTIVE - CAN ADMIT] - (hospice doctor) Time spent managing pt's care (in minutes): 55
[2019-06-10 13:18] VITALS: BP 188/78; TEMP 98.8
[2019-06-10 14:08] VITALS: O2SAT 95
== END 2019-06-10 13:43 | disposition hospice, home (50) | DRG 291 ==
LOC: ER 16:28 → ERHOLD 17:53 → 4TH 19:55
PROVIDERS: ADMIT Internal Medicine; ATTEND Family Medicine
DX: I13.0 Hypertensive heart and chronic kidney disease with heart failure and stage 1 through stage 4 chronic kidney disease, or unspecified chronic kidney disease (principal); I50.33 Acute on chronic diastolic (congestive) heart failure; J18.9 Pneumonia, unspecified organism; N18.4 Chronic kidney disease, stage 4 (severe); E11.22 Type 2 diabetes mellitus with diabetic chronic kidney disease; E11.65 Type 2 diabetes mellitus with hyperglycemia; I25.10 Atherosclerotic heart disease of native coronary artery without angina pectoris; D63.1 Anemia in chronic kidney disease; Z51.5 Encounter for palliative care; Z66 Do not resuscitate; E78.5 Hyperlipidemia, unspecified; N40.0 Benign prostatic hyperplasia without lower urinary tract symptoms; E03.9 Hypothyroidism, unspecified; I25.2 Old myocardial infarction; Z79.82 Long term (current) use of aspirin; Z79.4 Long term (current) use of insulin
CPT/HCPCS: 36415; 71045; 80048; 80076; 81003; 82947; 82962; 83690; 83735; 83880; 84484; 85025; 85610; 93005; 94640; 96374; 99285; J1940